=== PATIENT | male | born 1945 | race Caucasian/White ===

== ENCOUNTER → 2017-11-16 14:48 | Outpatient (CLI) | payer MEDICARE, SELFPAY ==
[2017-11-16 17:02] LABS: ALB/GLOB Ratio 1.1 RATIO (0.9-2.4); AST(SGOT) 31 U/L (15-37); Alanine Aminotransfer ALT/SGPT 43 U/L (16-61); Albumin, Serum 3.6 g/dL (3.2-5.0); Alkaline Phosphatase 83 U/L (45-117); Anion Gap 7 (5-15); BUN 14 mg/dL (7-18); BUN/Creat Ratio 12.4 RATIO (10-20); Calcium,Total 8.7 mg/dL (8.5-10.1); Chloride 102 mmol/L (98-107); Creatinine, Serum 1.13 mg/dL (0.70-1.30); EST Glomerular Filtration Rate 68 mL/min (>60); Est Glom Filt Rate - Afr Amer 82 mL/min (>60); Globulin 3.2 g/dL (2.2-4.2); Glucose 109 mg/dL (74-106); Potassium 3.7 mmol/L (3.5-5.1); Protein, Total 6.8 g/dL (6.4-8.2); Sodium Level 139 mmol/L (136-145); Thyroid Stim Hormone (TSH) 2.28 uIU/mL (0.358-3.74)
[2017-11-16 17:25] LABS: Absolute Lymphocyte Count 2.62 X10^3/ul (0.83-4.51); Absolute Neutrophil Count 3.5 X10^3/uL (2.0-7.7); Basophil# 0.04 X10^3/uL; Basophil% 0.6 % (0-1); Eosinophil# 0.26 X10^3/uL; Eosinophils% 3.7 % (0-5); Hemoglobin 14.6 g/dl (13.0-16.5); Lymphocyte # 2.62 X10^3/ul (4.0); Lymphocyte % 37.1 % (19-41); Mean Corp Hgb Conc 32.4 g/gl (32-36); Mean Corpuscular Hgb 28.9 pg (27.0-32.0); Mean Corpuscular Volume 89.1 fL (80-94); Mean Platelet Vol. 9.6 fl (6.2-12.0); Monocyte% 8.5 % (0-10); Neutrophil % 49.5 % (47-70); Platelet Count 223 K/mm3 (150-450); RBC Distribution Width CV 14.3 % (11.6-14.6); Red Blood Count 5.05 M/mm3 (4.6-6.2); White Blood Count 7.1 K/mm3 (4.4-11.0)
[2017-11-16 18:13] LABS: POSITIVE COUNT NO; POSITIVE DIFFERENTIAL NO; POSITIVE MORPHOLOGY NO
== END ==
PROVIDERS: Family Provider Family Medicine Geriatric Medicine; PCP Family Medicine Geriatric Medicine; Visit Provider Family Medicine Geriatric Medicine
DX: I10 Essential (primary) hypertension (principal); E23.6 Other disorders of pituitary gland
CPT/HCPCS: 36415; 80053; 84403; 84443; 85025

== ENCOUNTER → 2018-06-08 06:50 | Outpatient (CLI) | payer MEDICARE, SELFPAY ==
--- NOTE | 2018-06-08 06:59 | CT_ITS ---
STUDY: CT TEMPORAL BONES WITHOUT CONTRAST - ATTN: I.A.C. S REASON FOR EXAM: Male, 73 years old. Tinnitus of the right ear. RADIATION DOSAGE (If Supplied By Facility): CTDIvol = ( 82.28 ) mGy, DLP = ( 801.64 ) mGycm TECHNIQUE: The patient was scanned in a multi detector CT scanner. Transaxial imaging was performed without the administration of intravenous contrast material. Sagittal and coronal images were reconstructed. Individualized dose optimization techniques were used for this CT. COMPARISON: None. FINDINGS: RIGHT TEMPORAL BONE Normal right internal auditory canal. Normal visualized ossicles and tympanic cavity. Normal right cochlea and semicircular canals. Normal vestibular aqueduct. Normal right petrous carotid artery. Normal right jugular fossa. There are minimal scattered inflammatory changes of the right mastoid air cells consistent with mild chronic otomastoiditis. Normal right petrous apex. LEFT TEMPORAL BONE Normal left internal auditory canal. Normal visualized ossicles and tympanic cavity. Normal left cochlea and semicircular canals. Normal vestibular aqueduct. Normal left petrous carotid artery. Normal right jugular fossa. There are minimal scattered inflammatory changes of the left mastoid air cells consistent with mild chronic otomastoiditis. Normal left petrous apex. Mild mucosal thickening of the maxillary and ethmoid sinuses bilaterally. CT/Orb Sella Post Fossa Ear W/CON IMPRESSION: Normal unenhanced CT examination of the bilateral temporal bones (I.A.C.'s). Minimal mucosal thickening of the maxillary ethmoid sinuses as well as the mastoid air cells bilaterally. Electronically Signed: Ludwin Barragan MD at 12:52 EDT Tel [phone], Service support ,
[2018-06-08 07:16] LABS: CREATININE FINGERSTICK 0.9 mg/dL (0.70-1.30); EGFR FINGERSTICK > 60.0000 mL/min (>60)
== END ==
PROVIDERS: Family Provider Family Medicine Geriatric Medicine; PCP Family Medicine Geriatric Medicine; Visit Provider Otolaryngology Otolaryngology/Facial Plastic Surgery
DX: H93.19 Tinnitus, unspecified ear (principal); E55.9 Vitamin D deficiency, unspecified; F52.8 Other sexual dysfunction not due to a substance or known physiological condition; R53.83 Other fatigue; Z12.5 Encounter for screening for malignant neoplasm of prostate; Z13.89 Encounter for screening for other disorder
CPT/HCPCS: 36415; 70481; 80053; 82306; 84153; 84403; 84443; 85025; 86803; Q9967; G0103

== ENCOUNTER → 2018-06-08 14:47 | Outpatient (CLI) | payer MEDICARE, SELFPAY ==
[2018-06-08 17:02] LABS: Absolute Lymphocyte Count 2.14 X10^3/ul (0.83-4.51); Absolute Neutrophil Count 3.9 X10^3/uL (2.0-7.7); Basophil# 0.06 X10^3/uL; Basophil% 0.9 % (0-1); Eosinophil# 0.21 X10^3/uL; Hematocrit 43.2 % (40-54); Hemoglobin 14.9 g/dl (13.0-16.5); Lymphocyte # 2.14 X10^3/ul (4.0); Lymphocyte % 30.5 % (19-41); Mean Corp Hgb Conc 34.5 g/gl (32-36); Mean Corpuscular Hgb 30.5 pg (27.0-32.0); Mean Corpuscular Volume 88.5 fL (80-94); Mean Platelet Vol. 9.6 fl (6.2-12.0); Monocyte# 0.64 X10^3/uL; Monocyte% 9.1 % (0-10); Neutrophil # 3.91 X10^3/uL (2.7-7.7); Neutrophil % 55.8 % (47-70); Platelet Count 235 K/mm3 (150-450); RBC Distribution Width CV 14.1 % (11.6-14.6); RBC Distribution Width SD 45.3 fl (35.1-43.9); Red Blood Count 4.88 M/mm3 (4.6-6.2)
[2018-06-08 17:18] LABS: POSITIVE COUNT NO; POSITIVE DIFFERENTIAL NO; POSITIVE MORPHOLOGY NO
[2018-06-08 17:26] LABS: ALB/GLOB Ratio 0.9 RATIO (0.9-2.4); AST(SGOT) 22 U/L (15-37); Alanine Aminotransfer ALT/SGPT 38 U/L (16-61); Albumin, Serum 3.3 g/dL (3.2-5.0); Alkaline Phosphatase 80 U/L (45-117); Anion Gap 7 (5-15); BUN 13 mg/dL (7-18); BUN/Creat Ratio 10.8 RATIO (10-20); Calcium,Total 8.5 mg/dL (8.5-10.1); Chloride 105 mmol/L (98-107); EST Glomerular Filtration Rate 63 mL/min (>60); Est Glom Filt Rate - Afr Amer 77 mL/min (>60); Globulin 3.7 g/dL (2.2-4.2); Glucose 110 mg/dL (74-106); PSA,Total - Annual Screen 1.66 ng/mL (0.00-4.00); Potassium 3.9 mmol/L (3.5-5.1); Sodium Level 141 mmol/L (136-145); Thyroid Stim Hormone (TSH) 2.77 uIU/mL (0.358-3.74)
[2018-06-08 17:34] LABS: Vitamin D,25 Hydroxy 18.6 ng/mL (29.95-100.01)
[2018-06-10 08:32] LABS: Hep C Antibodies 0.1 s/co ratio (0.0-0.9)
== END ==
PROVIDERS: Family Provider Family Medicine Geriatric Medicine; PCP Family Medicine Geriatric Medicine; Visit Provider Family Medicine Geriatric Medicine
DX: E55.9 Vitamin D deficiency, unspecified (principal); F52.8 Other sexual dysfunction not due to a substance or known physiological condition; R53.83 Other fatigue; Z12.5 Encounter for screening for malignant neoplasm of prostate; Z13.89 Encounter for screening for other disorder
CPT/HCPCS: 36415; 80053; 82306; 84153; 84403; 84443; 85025; 86803; G0103

== ENCOUNTER → 2018-12-03 10:45 | Outpatient (CLI) | payer MEDICARE, SELFPAY | PROVIDERS: Family Provider Family Medicine Geriatric Medicine; PCP Family Medicine Geriatric Medicine; Referring Provider Family Medicine Geriatric Medicine; Visit Provider Family Medicine Geriatric Medicine | DX: R68.83 Chills (without fever) (principal) | CPT/HCPCS: 87633 ==

== ENCOUNTER → 2018-12-21 15:42 | Outpatient (CLI) | payer MEDICARE, SELFPAY ==
[2018-12-21 16:11] LABS: Absolute Neutrophil Count 7.6 X10^3/uL (2.0-7.7); Basophil# 0.03 X10^3/uL; Basophil% 0.3 % (0-1); Eosinophil# 0.11 X10^3/uL; Hematocrit 43.1 % (40-54); Hemoglobin 13.7 g/dl (13.0-16.5); Lymphocyte % 22.4 % (19-41); Mean Corp Hgb Conc 31.8 g/gl (32-36); Mean Corpuscular Hgb 29.6 pg (27.0-32.0); Mean Corpuscular Volume 93.1 fL (80-94); Mean Platelet Vol. 8.9 fl (6.2-12.0); Monocyte# 0.85 X10^3/uL; Monocyte% 7.6 % (0-10); Platelet Count 219 K/mm3 (150-450); RBC Distribution Width SD 50.3 fl (35.1-43.9); Red Blood Count 4.63 M/mm3 (4.6-6.2); White Blood Count 11.2 K/mm3 (4.4-11.0)
[2018-12-21 16:14] LABS: POSITIVE COUNT NO; POSITIVE DIFFERENTIAL NO; POSITIVE MORPHOLOGY NO
[2018-12-21 17:14] LABS: Vitamin D,25 Hydroxy 45.1 ng/mL (29.95-100.01)
[2018-12-21 17:17] LABS: ALB/GLOB Ratio 0.9 RATIO (0.9-2.4); AST(SGOT) 19 U/L (15-37); Alanine Aminotransfer ALT/SGPT 46 U/L (16-61); Albumin, Serum 3.1 g/dL (3.2-5.0); Alkaline Phosphatase 85 U/L (45-117); Anion Gap 4 (5-15); BUN 23 mg/dL (7-18); BUN/Creat Ratio 19.3 RATIO (10-20); Calcium,Total 8.4 mg/dL (8.5-10.1); Chloride 101 mmol/L (98-107); Cholesterol 138 mg/dL (200); Creatinine, Serum 1.19 mg/dL (0.70-1.30); EST Glomerular Filtration Rate 64 mL/min (>60); Est Glom Filt Rate - Afr Amer 77 mL/min (>60); Globulin 3.3 g/dL (2.2-4.2); Glucose 135 mg/dL (74-106); High Density Lipoprotein 40 mg/dL; Potassium 3.9 mmol/L (3.5-5.1); Protein, Total 6.4 g/dL (6.4-8.2); Sodium Level 135 mmol/L (136-145); Triglycerides 105 mg/dL; Very Low Density Lipoprotein 21 mg/dL (5-40)
== END ==
PROVIDERS: Family Provider Family Medicine Geriatric Medicine; PCP Family Medicine Geriatric Medicine; Visit Provider Family Medicine Geriatric Medicine
DX: R53.83 Other fatigue (principal); E78.5 Hyperlipidemia, unspecified; F52.8 Other sexual dysfunction not due to a substance or known physiological condition; E55.9 Vitamin D deficiency, unspecified
CPT/HCPCS: 36415; 80053; 80061; 82306; 84403; 84443; 85025

== ENCOUNTER → 2019-01-04 16:43 | Outpatient (CLI) | payer MEDICARE, SELFPAY ==
[2019-01-04 17:40] LABS: Absolute Lymphocyte Count 2.64 X10^3/ul (0.83-4.51); Absolute Neutrophil Count 5.8 X10^3/uL (2.0-7.7); Basophil# 0.03 X10^3/uL; Basophil% 0.3 % (0-1); Eosinophil# 0.14 X10^3/uL; Eosinophils% 1.5 % (0-5); Hematocrit 41.9 % (40-54); Hemoglobin 13.9 g/dl (13.0-16.5); Lymphocyte # 2.64 X10^3/ul (4.0); Lymphocyte % 27.9 % (19-41); Mean Corp Hgb Conc 33.2 g/gl (32-36); Mean Corpuscular Hgb 29.9 pg (27.0-32.0); Mean Corpuscular Volume 90.1 fL (80-94); Mean Platelet Vol. 8.9 fl (6.2-12.0); Monocyte# 0.76 X10^3/uL; Neutrophil # 5.76 X10^3/uL (2.7-7.7); Neutrophil % 60.8 % (47-70); Platelet Count 244 K/mm3 (150-450); RBC Distribution Width CV 14.3 % (11.6-14.6); Red Blood Count 4.65 M/mm3 (4.6-6.2); White Blood Count 9.5 K/mm3 (4.4-11.0)
--- NOTE | 2019-01-04 17:48 | RAD_ITS ---
STUDY: X-RAY CHEST REASON FOR EXAM: Male, 73 years old. SOB, FEVER, FLU X1 MONTH TECHNIQUE: PA and lateral views of the chest. COMPARISON: October 14, 2016, September 13, 2014 FINDINGS: There remains pulmonary parenchymal opacity at the right lung base inferior and lateral similar to that seen previously which is a chronic finding in this patient and perhaps chronic pleural-parenchymal scarring. There is evidence of prior traumatic injury to the right posterior lateral chest with multiple old rib fracture deformities in this vicinity. No definitive pleural effusion. The costophrenic angles on lateral view appear clear. Normal size heart. Normal mediastinum and fabi. Normal visualized pulmonary arteries. Mild tortuosity of the aorta noted. There are diffuse degenerative changes of the visualized thoracic spine. Normal visualized ribs, clavicles, and shoulders. There is no demonstrated abnormality of the visualized soft tissue structures of the upper abdomen. RAD/Chest PA and Lateral IMPRESSION: The appearance of the right inferolateral chest is unchanged. This suggests that this is chronic pleural-parenchymal scarring with old rib fracture deformities in this vicinity. No acute focal lung infiltrate. Electronically Signed: Geovanna Dunaway MD at 18:09 EDT , Service support ,
[2019-01-04 17:52] LABS: POSITIVE COUNT NO; POSITIVE DIFFERENTIAL NO; POSITIVE MORPHOLOGY NO
[2019-01-04 18:14] LABS: BUN 20 mg/dL (7-18); BUN/Creat Ratio 15.6 RATIO (10-20); Calcium,Total 8.2 mg/dL (8.5-10.1); Chloride 104 mmol/L (98-107); Creatinine, Serum 1.28 mg/dL (0.70-1.30); EST Glomerular Filtration Rate 59 mL/min (>60); Est Glom Filt Rate - Afr Amer 71 mL/min (>60); Glucose 106 mg/dL (74-106); Potassium 3.8 mmol/L (3.5-5.1); Sodium Level 137 mmol/L (136-145)
[2019-01-04 18:15] LABS: Anion Gap 5 (5-15)
[2019-01-04 18:22] LABS: BNP,B-Type NATRIURETIC PEPTIDE 13.6 pg/mL (0-100)
== END ==
PROVIDERS: Family Provider Family Medicine Geriatric Medicine; PCP Family Medicine Geriatric Medicine; Referring Provider Family Medicine Geriatric Medicine; Visit Provider Family Medicine Geriatric Medicine
DX: R06.89 Other abnormalities of breathing (principal); R68.83 Chills (without fever); R06.02 Shortness of breath; R06.09 Other forms of dyspnea
CPT/HCPCS: 36415; 71046; 80048; 83880; 85025; 87633

== ENCOUNTER → 2019-03-14 10:42 | Outpatient (CLI) | payer MEDICARE, SELFPAY ==
--- NOTE | 2019-03-14 10:51 | RAD_ITS ---
STUDY: X-RAY - LUMBAR SPINE REASON FOR EXAM: Male, 73 years old. Pain across lower back for some time and getting worse. TECHNIQUE: 3 view(s) of the lumbar spine were obtained. COMPARISON: None FINDINGS: Normal lumbar lordosis. There is no substantial scoliosis. Minimal degenerative anterolisthesis of L4 on L5. Left L4-L5 degenerative facet arthropathy. Normal vertebral bodies and endplates. Normal disc space heights. No acute fractures. Lateral marginal spurs at L2-L3 and L3-L4 disc space levels. The soft tissue structures are unremarkable. RAD/Lumbar Spine 2 or 3 Views IMPRESSION: 1. No acute fracture or acute osseous abnormality of the lumbar spine. 2. Mild degenerative anterolisthesis of L4 on L5. Electronically Signed: Esteban Cesar MD at 15:57 EDT , Service support ,
== END ==
PROVIDERS: Family Provider Family Medicine Geriatric Medicine; PCP Family Medicine Geriatric Medicine; Referring Provider Family Medicine Geriatric Medicine; Visit Provider Family Medicine Geriatric Medicine
DX: M54.5 Low back pain (principal)
CPT/HCPCS: 72100

== ENCOUNTER → 2019-06-17 09:16 | Outpatient (CLI) | payer MEDICARE, SELFPAY ==
[2019-06-17 12:58] LABS: Absolute Lymphocyte Count 2.01 X10^3/uL (0.83-4.51); Absolute Neutrophil Count 4.5 X10^3/uL (2.0-7.7); Basophil# 0.06 X10^3/uL; Basophil% 0.8 % (0-1); Eosinophil# 0.19 X10^3/uL; Eosinophils% 2.5 % (0-5); Hemoglobin 15.5 g/dL (13.0-16.5); Lymphocyte # 2.01 X10^3/ul (4.0); Lymphocyte % 26.9 % (19-41); Mean Corp Hgb Conc 31.6 g/dL (32-36); Mean Corpuscular Hgb 29.3 pg (27.0-32.0); Mean Corpuscular Volume 92.6 fL (80-94); Mean Platelet Vol. 9.6 fl (6.2-12.0); Monocyte# 0.71 X10^3/uL; Monocyte% 9.5 % (0-10); NRBC Flagged by Analyzer 0 % (0-5); Neutrophil # 4.45 X10^3/uL (2.7-7.7); Neutrophil % 59.6 % (47-70); Platelet Count 223 K/mm3 (150-450); RBC Distribution Width CV 14.1 % (11.6-14.6); RBC Distribution Width SD 48.3 fl (35.1-43.9); Red Blood Count 5.29 M/mm3 (4.6-6.2); White Blood Count 7.5 K/mm3 (4.4-11.0)
[2019-06-17 13:23] LABS: Vitamin D,25 Hydroxy 33.9 ng/mL (29.95-100.01)
[2019-06-17 14:03] LABS: ALB/GLOB Ratio 0.9 RATIO (0.9-2.4); AST(SGOT) 17 U/L (15-37); Alanine Aminotransfer ALT/SGPT 34 U/L (16-61); Albumin, Serum 3.3 g/dL (3.2-5.0); Alkaline Phosphatase 84 U/L (45-117); Anion Gap 5 (5-15); BUN 11 mg/dL (7-18); BUN/Creat Ratio 10.1 RATIO (10-20); Calcium,Total 8.7 mg/dL (8.5-10.1); Chloride 103 mmol/L (98-107); Cholesterol 122 mg/dL (200); Creatinine, Serum 1.09 mg/dL (0.70-1.30); EST Glomerular Filtration Rate 71 mL/min (>60); Est Glom Filt Rate - Afr Amer 86 mL/min (>60); Globulin 3.6 g/dL (2.2-4.2); Glucose 120 mg/dL (74-106); High Density Lipoprotein 34 mg/dL; Potassium 3.7 mmol/L (3.5-5.1); Protein, Total 6.9 g/dL (6.4-8.2); Sodium Level 138 mmol/L (136-145); Thyroid Stim Hormone (TSH) 2.38 uIU/mL (0.358-3.74); Triglycerides 151 mg/dL; Very Low Density Lipoprotein 30 mg/dL (5-40)
== END ==
PROVIDERS: Family Provider Family Medicine Geriatric Medicine; PCP Family Medicine Geriatric Medicine; Visit Provider Family Medicine Geriatric Medicine
DX: I10 Essential (primary) hypertension (principal); E55.9 Vitamin D deficiency, unspecified; E78.5 Hyperlipidemia, unspecified
CPT/HCPCS: 36415; 80053; 80061; 82306; 84443; 85025

== ENCOUNTER → 2019-10-20 14:49 | Outpatient (CLI) | payer MEDICARE, SELFPAY | PROVIDERS: PCP Family Medicine Geriatric Medicine; Referring Provider Family Medicine Geriatric Medicine; Visit Provider Family Medicine Geriatric Medicine | DX: R68.83 Chills (without fever) (principal) | CPT/HCPCS: 87633 ==

== ENCOUNTER → 2019-12-16 09:45 | Outpatient (CLI) | payer MEDICARE, SELFPAY ==
[2019-12-16 10:22] LABS: Absolute Lymphocyte Count 2.68 X10^3/uL (0.83-4.51); Basophil# 0.05 X10^3/uL; Basophil% 0.5 % (0-1); Hemoglobin 15.3 g/dL (13.0-16.5); Lymphocyte # 2.68 X10^3/ul (4.0); Lymphocyte % 27.2 % (19-41); Mean Corp Hgb Conc 31.9 g/dL (32-36); Mean Corpuscular Hgb 29.4 pg (27.0-32.0); Mean Corpuscular Volume 92.1 fL (80-94); Mean Platelet Vol. 9.1 fl (6.2-12.0); Monocyte# 0.75 X10^3/uL; Monocyte% 7.6 % (0-10); NRBC Flagged by Analyzer 0 % (0-5); Neutrophil # 5.99 X10^3/uL (2.7-7.7); Platelet Count 226 K/mm3 (150-450); RBC Distribution Width CV 15.4 % (11.6-14.6); RBC Distribution Width SD 51.9 fl (35.1-43.9); Red Blood Count 5.21 M/mm3 (4.6-6.2); White Blood Count 9.8 K/mm3 (4.4-11.0)
[2019-12-16 10:47] LABS: ALB/GLOB Ratio 0.9 RATIO (0.9-2.4); AST(SGOT) 13 U/L (15-37); Alanine Aminotransfer ALT/SGPT 32 U/L (16-61); Albumin, Serum 3.3 g/dL (3.2-5.0); Alkaline Phosphatase 90 U/L (45-117); Anion Gap 4 (5-15); BUN 17 mg/dL (7-18); BUN/Creat Ratio 15.6 RATIO (10-20); Calcium,Total 8.8 mg/dL (8.5-10.1); Chloride 102 mmol/L (98-107); Cholesterol 132 mg/dL (200); Creatinine, Serum 1.09 mg/dL (0.70-1.30); EST Glomerular Filtration Rate 71 mL/min (>60); Est Glom Filt Rate - Afr Amer 85 mL/min (>60); Globulin 3.7 g/dL (2.2-4.2); Glucose 98 mg/dL (74-106); High Density Lipoprotein 36 mg/dL; Potassium 3.8 mmol/L (3.5-5.1); Sodium Level 139 mmol/L (136-145); Thyroid Stim Hormone (TSH) 3.06 uIU/mL (0.358-3.74); Triglycerides 90 mg/dL; Very Low Density Lipoprotein 18 mg/dL (5-40)
[2019-12-16 11:09] LABS: Vitamin D,25 Hydroxy 32.5 ng/mL
== END ==
PROVIDERS: PCP Family Medicine Geriatric Medicine; Visit Provider Family Medicine Geriatric Medicine
DX: E55.9 Vitamin D deficiency, unspecified (principal); E78.5 Hyperlipidemia, unspecified; F52.8 Other sexual dysfunction not due to a substance or known physiological condition; I10 Essential (primary) hypertension
CPT/HCPCS: 36415; 80053; 80061; 82306; 84403; 84443; 85025

== ENCOUNTER → 2020-06-21 09:23 | Outpatient (CLI) | payer MEDICARE, SELFPAY ==
[2020-06-21 12:46] LABS: Absolute Lymphocyte Count 2.76 X10^3/uL (0.83-4.51); Absolute Neutrophil Count 3.8 X10^3/uL (2.0-7.7); Basophil# 0.06 X10^3/uL; Basophil% 0.8 % (0-1); Eosinophil# 0.28 X10^3/uL; Eosinophils% 3.6 % (0-5); Hematocrit 48.8 % (40-54); Hemoglobin 15.2 g/dL (13.0-16.5); Lymphocyte # 2.76 X10^3/ul (4.0); Lymphocyte % 35.2 % (19-41); Mean Corp Hgb Conc 31.1 g/dL (32-36); Mean Corpuscular Hgb 28.5 pg (27.0-32.0); Mean Corpuscular Volume 91.4 fL (80-94); Mean Platelet Vol. 9.8 fl (6.2-12.0); Monocyte# 0.92 X10^3/uL; Monocyte% 11.7 % (0-10); NRBC Flagged by Analyzer 0 % (0-5); Neutrophil # 3.75 X10^3/uL (2.7-7.7); Neutrophil % 47.8 % (47-70); Platelet Count 260 K/mm3 (150-450); Red Blood Count 5.34 M/mm3 (4.6-6.2); White Blood Count 7.8 K/mm3 (4.4-11.0)
[2020-06-21 13:04] LABS: Vitamin D,25 Hydroxy 34.1 ng/mL
[2020-06-21 13:11] LABS: ALB/GLOB Ratio 0.9 RATIO (0.9-2.4); AST(SGOT) 22 U/L (15-37); Alanine Aminotransfer ALT/SGPT 36 U/L (16-61); Albumin, Serum 3.3 g/dL (3.2-5.0); Alkaline Phosphatase 78 U/L (45-117); Anion Gap 5 (5-15); BUN 11 mg/dL (7-18); Calcium,Total 8.8 mg/dL (8.5-10.1); Chloride 104 mmol/L (98-107); Cholesterol 146 mg/dL (200); EST Glomerular Filtration Rate 70 mL/min (>60); Est Glom Filt Rate - Afr Amer 84 mL/min (>60); Globulin 3.7 g/dL (2.2-4.2); Glucose 130 mg/dL (74-106); High Density Lipoprotein 29 mg/dL; Potassium 4.4 mmol/L (3.5-5.1); Sodium Level 138 mmol/L (136-145); Thyroid Stim Hormone (TSH) 4.62 uIU/mL (0.358-3.74); Triglycerides 130 mg/dL; Very Low Density Lipoprotein 26 mg/dL (5-40)
[2020-06-26 11:25] LABS: Hemoglobin A1c 6.4 % (3.8-5.6)
== END ==
PROVIDERS: PCP Family Medicine Geriatric Medicine; Visit Provider Family Medicine Geriatric Medicine
DX: R53.83 Other fatigue (principal); E55.9 Vitamin D deficiency, unspecified; F52.8 Other sexual dysfunction not due to a substance or known physiological condition; E11.9 Type 2 diabetes mellitus without complications; E78.5 Hyperlipidemia, unspecified
CPT/HCPCS: 36415; 80053; 80061; 82306; 83036; 84403; 84443; 85025

== ENCOUNTER → 2020-07-04 10:43 | Outpatient (CLI) | payer MEDICARE, SELFPAY ==
[2020-07-04 12:19] LABS: Absolute Lymphocyte Count 1.94 X10^3/uL (0.83-4.51); Absolute Neutrophil Count 3.2 X10^3/uL (2.0-7.7); Basophil# 0.05 X10^3/uL; Basophil% 0.8 % (0-1); Eosinophil# 0.21 X10^3/uL; Eosinophils% 3.4 % (0-5); Hematocrit 45.7 % (40-54); Hemoglobin 14.6 g/dL (13.0-16.5); Lymphocyte # 1.94 X10^3/ul (4.0); Lymphocyte % 31.3 % (19-41); Mean Corp Hgb Conc 31.9 g/dL (32-36); Mean Corpuscular Volume 90.9 fL (80-94); Mean Platelet Vol. 9.3 fl (6.2-12.0); Monocyte# 0.72 X10^3/uL; Monocyte% 11.6 % (0-10); NRBC Flagged by Analyzer 0 % (0-5); Neutrophil # 3.24 X10^3/uL (2.7-7.7); Neutrophil % 52.4 % (47-70); Platelet Count 252 K/mm3 (150-450); RBC Distribution Width CV 14.2 % (11.6-14.6); RBC Distribution Width SD 47.3 fl (35.1-43.9); Red Blood Count 5.03 M/mm3 (4.6-6.2); White Blood Count 6.2 K/mm3 (4.4-11.0)
[2020-07-04 12:36] LABS: Anion Gap 3 (5-15); BUN 12 mg/dL (7-18); BUN/Creat Ratio 11.3 RATIO (10-20); Chloride 106 mmol/L (98-107); Creatinine, Serum 1.06 mg/dL (0.70-1.30); EST Glomerular Filtration Rate 73 mL/min (>60); Est Glom Filt Rate - Afr Amer 88 mL/min (>60); Glucose 111 mg/dL (74-106); Potassium 3.9 mmol/L (3.5-5.1); Sodium Level 138 mmol/L (136-145)
== END ==
PROVIDERS: PCP Family Medicine Geriatric Medicine; Visit Provider Family Medicine Geriatric Medicine
DX: R07.9 Chest pain, unspecified (principal); R60.9 Edema, unspecified
CPT/HCPCS: 36415; 80048; 83880; 85025

== ENCOUNTER → 2020-07-24 11:32 | Outpatient (CLI) | payer MEDICARE, SELFPAY ==
[2020-07-24 13:10] LABS: PSA,Total - Annual Screen 0.88 ng/mL (0.00-4.00)
== END ==
PROVIDERS: PCP Family Medicine Geriatric Medicine; Visit Provider Family Medicine Geriatric Medicine
DX: Z12.5 Encounter for screening for malignant neoplasm of prostate (principal)
CPT/HCPCS: 36415; 84153; G0103

== ENCOUNTER → 2020-12-20 11:42 | Outpatient (CLI) | payer MEDICARE, SELFPAY ==
[2020-12-20 12:20] LABS: Absolute Neutrophil Count 3.5 X10^3/uL (2.0-7.7); Basophil# 0.09 X10^3/uL; Basophil% 1.2 % (0-1); Eosinophil# 0.31 X10^3/uL; Hematocrit 45.7 % (40-54); Lymphocyte % 38.7 % (19-41); Mean Corp Hgb Conc 32.8 g/dL (32-36); Mean Corpuscular Hgb 29.7 pg (27.0-32.0); Mean Corpuscular Volume 90.5 fL (80-94); Mean Platelet Vol. 9.5 fl (6.2-12.0); Monocyte# 0.83 X10^3/uL; Monocyte% 10.7 % (0-10); NRBC Flagged by Analyzer 0 % (0-5); Neutrophil # 3.46 X10^3/uL (2.7-7.7); Neutrophil % 44.6 % (47-70); Platelet Count 248 K/mm3 (150-450); RBC Distribution Width CV 14.6 % (11.6-14.6); RBC Distribution Width SD 47.8 fl (35.1-43.9); Red Blood Count 5.05 M/mm3 (4.6-6.2); White Blood Count 7.8 K/mm3 (4.4-11.0)
[2020-12-20 12:55] LABS: AST(SGOT) 26 U/L (15-37); Alanine Aminotransfer ALT/SGPT 53 U/L (16-61); Albumin, Serum 3.4 g/dL (3.2-5.0); Alkaline Phosphatase 82 U/L (45-117); Anion Gap 5 (5-15); BUN 13 mg/dL (7-18); BUN/Creat Ratio 12.5 RATIO (10-20); Calcium,Total 8.5 mg/dL (8.5-10.1); Chloride 101 mmol/L (98-107); Cholesterol 137 mg/dL (200); Creatinine, Serum 1.04 mg/dL (0.70-1.30); EST Glomerular Filtration Rate 74 mL/min (>60); Est Glom Filt Rate - Afr Amer 90 mL/min (>60); Globulin 3.5 g/dL (2.2-4.2); Glucose 129 mg/dL (74-106); High Density Lipoprotein 30 mg/dL; Potassium 3.5 mmol/L (3.5-5.1); Protein, Total 6.9 g/dL (6.4-8.2); Sodium Level 136 mmol/L (136-145); Thyroid Stim Hormone (TSH) 3.48 uIU/mL (0.358-3.74); Triglycerides 136 mg/dL; Very Low Density Lipoprotein 27 mg/dL (5-40)
[2020-12-20 16:19] LABS: Vitamin D,25 Hydroxy 26.7 ng/mL
== END ==
PROVIDERS: PCP Family Medicine Geriatric Medicine; Visit Provider Family Medicine Geriatric Medicine
DX: E55.9 Vitamin D deficiency, unspecified (principal); E78.5 Hyperlipidemia, unspecified; R53.83 Other fatigue; F52.8 Other sexual dysfunction not due to a substance or known physiological condition
CPT/HCPCS: 36415; 80053; 80061; 82306; 84403; 84443; 85025

== ENCOUNTER 2021-03-14 12:11 | Emergency (ER) | payer MEDICARE, SELFPAY ==
[2021-03-14 12:12] VITALS: BP 158/87; PULSE 80; RESP 16; TEMP 36.3; O2SAT 94; BMI 37.3
--- NOTE | 2021-03-14 12:19 | EX.ED.DYSGE1 ---
HPI History of Present Illness Chief Complaint: Itching Informant: patient Onset/Context/Timing Onset: Yesterday Context: Gradual Onset Timing: Continuous Current Severity: Moderate Maximum Severity: Moderate Narrative Narrative: Patient is a 75-year-old male medical history significant for hypertension who presents to the emergency department with rash. Patient states he was outdoors mowing yesterday. He also got a shingles shot. States today, he developed some hives on his arms and chest. He also noted some in his groin. He cannot recall any new exposures. He denies any new lotions, soaps, shampoos. He denies any fever or chills. Has not found anything has improved the symptoms. Prior similar symptoms: No Recent Illness/Hospitalization: No PFSH PFSH Medical History (Updated 03/14/21 @ 12:21 by Holly Claudio) High cholesterol Hypertension Home Medications hydroxyzine pamoate [Vistaril] 50 mg PO TID PRN #30 cap 03/14/21 [Rx Last Taken Unknown] losartan 20 mg OTHER DAILY 03/14/21 [History Last Taken Unknown] prednisone 60 mg PO DAILY #15 tablet 03/14/21 [Rx Last Taken Unknown] Allergy/AdvReac Type Severity Reaction Status Date / Time No Known Allergies Allergy Verified 03/14/21 12:15 ROS ROS ED Constitutional Constitutional ED: Denies chills or fever(s) Eyes Eyes: Denies blurry vision or change in vision ENT ENT ED: Denies ear pain or sore throat Cardiovascular Cardiovascular: Denies chest pain or palpitations Respiratory/Chest Respiratory/Chest: Denies cough, dyspnea or dyspnea on exertion Gastrointestinal Gastrointestinal: Denies abdominal pain, nausea or vomiting Genitourinary Genitourinary ED: Denies dysuria or urinary frequency Musculoskeletal Musculoskeletal: Denies arthralgias or myalgias Integumentary Reports rash Neurologic Neurologic: Denies headache(s) or paresthesias Psychiatric Psychiatric: Denies anxiety or depression Endocrine Endocrinology: Denies polydipsia or polyuria Allergic/Immunologic Allergic/Immunologic ED: Denies urticaria EXAM Physical Exam Const Vital Signs: 03/14/21 12:12 Temperature 97.3 F L Temperature Source Temporal Pulse Rate 80 Respiratory Rate 16 Blood Pressure 158/87 H Blood Pressure Mean 110 Pulse Ox 94 Oxygen Delivery Method Room Air Positive well nourished and well developed General Appearance ED: well developed HEENT Reports normocephalic, head/scalp atraumatic and moist mucous membranes Eyes PERRL and EOMs intact bilaterally Neck no lymphadenopathy and supple General: Negative for tenderness Chest Wall inspection of chest normal Resp normal respiratory effort and clear to auscultation bilaterally Cardio regular rate, regular rhythm and no murmurs GI normal to inspection, nondistended, normoactive bowel sounds Palpation: Negative for tender, guarding or rebound tenderness present Back/Spine no CVA tenderness Cervical Spine: Negative for cervical spine tenderness Thoracic Spine / Upper Back: Negative for thoracic spinal tenderness Extremity normal to inspection General Extremety ED: Negative for tenderness Neuro oriented x3 and CN's II-XII intact bilaterally Neuro Narrative: No focal deficits appreciated. Sensorium / Orientation: alert Psych mental status grossly normal Skin no wounds and skin turgor normal Skin Narrative: Patient has diffuse urticarial rash. Involves the chest and arms. It is also in the inguinal folds. There is no cellulitis. There is no streaking. MDM MDM MDM Narrative Medical decision making narrative: Patient presents with a urticarial rash. I am not sure if this is contact or reaction to his shingles vaccination. He is very well-appearing. He has no history of anaphylaxis. Has no symptoms of anaphylaxis. Patient is not a diabetic. I will treat him with prednisone and Vistaril. Patient will be discharged home. Impression 1. Urticaria Discharge Plan Triage Chief Complaint: Itching ED Provider: Michele Woods Dx/Rx/DC Orders Instructions: ED Contact Dermatitis Prescriptions: New prednisone 20 MG tablet 60 mg PO DAILY Qty: 15 RF: 0 hydroxyzine pamoate [Vistaril] 50 mg capsule 50 mg PO TID PRN (Reason: itching) Qty: 30 RF: 0 No Action losartan 20 mg 20 mg OTHER DAILY RF: 0 Primary Care Provider: Brad Moody Chi Referrals: Brad Moody Chi, MD [Primary Care Provider] -
[2021-03-14] MEDS: hydrOXYzine PAM 25 MG Capsule 50 MG PO (12:37)
[2021-03-14] MEDS: predniSONE 20 MG Tablet 60 MG PO (12:54)
== END 2021-03-14 12:55 | disposition home or self-care (01) ==
LOC: ED 12:40
PROVIDERS: Emergency Provider Emergency Medicine; PCP Family Medicine Geriatric Medicine
DX: L50.9 Urticaria, unspecified (principal); E78.00 Pure hypercholesterolemia, unspecified; I10 Essential (primary) hypertension; Z79.52 Long term (current) use of systemic steroids; Z79.899 Other long term (current) drug therapy
CPT/HCPCS: 99283

== ENCOUNTER → 2021-03-20 15:00 | Outpatient (CLI) | payer MEDICARE, SELFPAY ==
[2021-03-14 12:12] VITALS: BMI 37.3
[2021-03-28 20:08] LABS: Alternaria alternata 0.29 kU/L (Class 0/I); Aspergillus fumigatus 0.56 kU/L (Class II); Bahia Grass 0.13 kU/L (Class 0/I); Beef 0.16 kU/L (Class 0/I); Bermuda Grass 0.11 kU/L (Class 0/I); Bluegrass, Kentucky 0.11 kU/L (Class 0/I); Cat Hair/Dander, Standard <0.10 kU/L (Class 0); Cedar, Mountain 0.23 kU/L (Class 0/I); Cladosporium herbarum 0.26 kU/L (Class 0/I); Cockroach, American 0.11 kU/L (Class 0/I); Corn <0.10 kU/L (Class 0); D farinae Mite 0.23 kU/L (Class 0/I); D pteronyssinus 0.52 kU/L (Class I); Dog Epithelia 0.13 kU/L (Class 0/I); Egg, Whole 0.11 kU/L (Class 0/I); Elm, American White <0.10 kU/L (Class 0); Hazelnut Tree <0.10 kU/L (Class 0); Hickory, White <0.10 kU/L (Class 0); Johnson Grass 0.18 kU/L (Class 0/I); Maple/Box Elder <0.10 kU/L (Class 0); Milk (Cow) 0.24 kU/L (Class 0/I); Mucor racemosus 0.32 kU/L (Class I); Mulberry, White <0.10 kU/L (Class 0); Nettle 0.15 kU/L (Class 0/I); Oak, White 0.13 kU/L (Class 0/I); Peanut <0.10 kU/L (Class 0); Penicillium chrysogen 0.38 kU/L (Class I); Plantain, English 0.17 kU/L (Class 0/I); Pork <0.10 kU/L (Class 0); Ragweed, Short/Common <0.10 kU/L (Class 0); Sheep Sorrel(Dock) 0.12 kU/L (Class 0/I); Soybean 0.11 kU/L (Class 0/I); Stemphylium herbarum 0.12 kU/L (Class 0/I); Sweet Gum <0.10 kU/L (Class 0); Sycamore, American <0.10 kU/L (Class 0); Wheat <0.10 kU/L (Class 0)
[2021-03-29 09:06] LABS: Chocolate <0.10 kU/L (Class 0)
== END ==
PROVIDERS: PCP Family Medicine Geriatric Medicine; Visit Provider Family Medicine Geriatric Medicine
DX: L50.0 Allergic urticaria (principal)
CPT/HCPCS: 36415; 82785; 86003; 86005

== ENCOUNTER → 2021-06-27 10:19 | Outpatient (CLI) | payer MEDICARE, SELFPAY ==
[2021-06-27 11:17] LABS: Absolute Lymphocyte Count 2.49 X10^3/uL (0.83-4.51); Absolute Neutrophil Count 3.6 X10^3/uL (2.0-7.7); Basophil# 0.08 X10^3/uL; Basophil% 1.1 % (0-1); Eosinophil# 0.33 X10^3/uL; Eosinophils% 4.5 % (0-5); Hematocrit 48.1 % (40-54); Hemoglobin 15.9 g/dL (13.0-16.5); Lymphocyte # 2.49 X10^3/ul (0.83-4.51); Lymphocyte % 34.2 % (19-41); Mean Corp Hgb Conc 33.1 g/dL (32-36); Mean Corpuscular Hgb 29.7 pg (27.0-32.0); Mean Corpuscular Volume 89.7 fL (80-94); Mean Platelet Vol. 9.2 fl (6.2-12.0); Monocyte# 0.69 X10^3/uL; Monocyte% 9.5 % (0-10); NRBC Flagged by Analyzer 0 % (0-5); Neutrophil # 3.63 X10^3/uL (2.7-7.7); Neutrophil % 49.9 % (47-70); Platelet Count 245 K/mm3 (150-450); RBC Distribution Width CV 13.7 % (11.6-14.6); Red Blood Count 5.36 M/mm3 (4.6-6.2); White Blood Count 7.3 K/mm3 (4.4-11.0)
[2021-06-27 11:46] LABS: Vitamin D,25 Hydroxy 25.3 ng/mL
[2021-06-27 11:53] LABS: ALB/GLOB Ratio 0.8 RATIO (0.9-2.4); AST(SGOT) 17 U/L (15-37); Alanine Aminotransfer ALT/SGPT 29 U/L (16-61); Albumin, Serum 3.4 g/dL (3.2-5.0); Alkaline Phosphatase 92 U/L (45-117); Anion Gap 6 (5-15); BUN 9 mg/dL (7-18); BUN/Creat Ratio 8.6 RATIO (10-20); Calcium,Total 8.8 mg/dL (8.5-10.1); Chloride 99 mmol/L (98-107); Cholesterol 142 mg/dL (200); Creatinine, Serum 1.05 mg/dL (0.70-1.30); EST Glomerular Filtration Rate 73 mL/min (>60); Est Glom Filt Rate - Afr Amer 89 mL/min (>60); Globulin 4.1 g/dL (2.2-4.2); Glucose 107 mg/dL (74-106); High Density Lipoprotein 29 mg/dL; Potassium 3.7 mmol/L (3.5-5.1); Protein, Total 7.5 g/dL (6.4-8.2); Sodium Level 135 mmol/L (136-145); Thyroid Stim Hormone (TSH) 2.57 uIU/mL (0.358-3.74); Triglycerides 178 mg/dL; Very Low Density Lipoprotein 36 mg/dL (5-40)
== END ==
PROVIDERS: PCP Family Medicine Geriatric Medicine; Referring Provider Family Medicine Geriatric Medicine; Visit Provider Family Medicine Geriatric Medicine
DX: E78.5 Hyperlipidemia, unspecified (principal); E55.9 Vitamin D deficiency, unspecified; F52.8 Other sexual dysfunction not due to a substance or known physiological condition; I10 Essential (primary) hypertension
CPT/HCPCS: 36415; 80053; 80061; 82306; 84403; 84443; 85025

== ENCOUNTER → 2021-08-09 15:25 | Outpatient (CLI) | payer MEDICARE, SELFPAY ==
--- NOTE | 2021-08-09 15:55 | CT_ITS ---
STUDY: CT BRAIN WITHOUT CONTRAST REASON FOR EXAM: Male, 76 years old. Cerebral infarction. RADIATION DOSAGE (If Supplied By Facility): CTDIvol = ( 44.99 ) mGy, DLP = ( 829.85 ) mGycm TECHNIQUE: Transaxial CT imaging of the brain was performed without administration of intravenous contrast material. Individualized dose optimization techniques were used for this CT. COMPARISON: 03/03/2012. FINDINGS: The present study is essentially nondiagnostic due to artifact from a large metal plate in the central and left frontal region. Only the lower and posterior aspects of the brain are partially seen. The occipital horns of the lateral ventricles, third and fourth ventricles are age-appropriate in size. There is no marked atrophy. Normal white matter tracts of the visualized cerebral hemispheres. Normal-appearing thalami. The basal ganglia are obscured by scatter artifact. Normal brainstem. Normal cerebellum. There is no intracranial hemorrhage. There are no findings of an acute ischemic infarction. Normal visualized paranasal sinuses. CT/Brain/Head without Contrast IMPRESSION: 1. Marked limited study due to a large metallic plate in the central left frontal region. 2. No obvious acute abnormality in the visualized portions of the brain. There is no major interval change from 03/05/2012. Electronically Signed: Ben Silva DO at 16:15 EST Tel [phone], Service support ,
== END ==
PROVIDERS: PCP Family Medicine Geriatric Medicine; Referring Provider Family Medicine Geriatric Medicine; Visit Provider Family Medicine Geriatric Medicine
DX: I63.9 Cerebral infarction, unspecified (principal)
CPT/HCPCS: 70450

== ENCOUNTER → 2021-08-28 13:13 | Outpatient (CLI) | payer MEDICARE, SELFPAY ==
--- NOTE | 2021-08-28 14:56 | NEURO ---
NCS and/or EMG Patient Report Ordering Doctor: Brad Moody Chi DATE OF SERVICE: 08/28/21 Bower presents for electrodiagnostic testing of the right upper limb. He reports pain in the right scapular region and numbness in the second digit of the right hand. Electrodiagnostic findings: Right median motor nerve demonstrates normal distal latency, amplitude and conduction velocity. Normal right ulnar motor response. Normal right median and ulnar F-wave. Prolonged right median sensory latency at the wrist. Normal right ulnar radial sensory responses. On needle EMG, all all muscles tested in the right upper limb as well as the right infraspinatus and supraspinatus and right cervical paraspinal showed no evidence of denervation with normal motor unit action potentials. Electrodiagnostic impression: This is an abnormal study in the right upper limb. 1. Electrodiagnostic findings demonstrate right-sided median mononeuropathy. This is consistent with a mild right carpal tunnel syndrome.
== END ==
PROVIDERS: PCP Family Medicine Geriatric Medicine; Referring Provider Family Medicine Geriatric Medicine; Visit Provider Family Medicine Geriatric Medicine
DX: G56.01 Carpal tunnel syndrome, right upper limb (principal); G56.11 Other lesions of median nerve, right upper limb
CPT/HCPCS: 95886; 95909

== ENCOUNTER → 2021-08-30 13:11 | Outpatient (CLI) | payer MEDICARE, SELFPAY ==
[2021-08-30 16:22] LABS: PSA,Total- Diagnostic 0.62 ng/mL (0.0-4.0)
== END ==
PROVIDERS: PCP Family Medicine Geriatric Medicine; Referring Provider Urology; Visit Provider Urology
DX: N40.1 Benign prostatic hyperplasia with lower urinary tract symptoms (principal); N13.8 Other obstructive and reflux uropathy
CPT/HCPCS: 36415; 84153

== ENCOUNTER 2021-12-14 19:13 | Emergency (ER) | payer MEDICARE, SELFPAY ==
[2021-12-14 19:15] VITALS: BP 175/68; PULSE 76; RESP 17; TEMP 36.1; O2SAT 95; BMI 37.8
[2021-12-14 19:39] VITALS: BP 169/88; PULSE 73; RESP 14; O2SAT 97
--- NOTE | 2021-12-14 20:02 | RAD_ITS ---
INDICATION: chest pain EXAMINATION/TECHNIQUE: X-RAY - XR Chest 1 View COMPARISON: 01/04/2019. FINDINGS: The lungs are clear. Right basilar atelectasis. The heart is enlarged. No pleural effusion or pneumothorax. No acute osseous abnormalities. RAD/Chest 1 View (Portable) IMPRESSION: No acute radiographic abnormalities. Electronically Signed: Garland Ellison MD at 21:21 EDT ,
--- NOTE | 2021-12-14 20:02 | EKG12_ITS ---
Test Reason : WEAKNESS Blood Pressure : / mmHG Vent. Rate : 080 BPM Atrial Rate : 080 BPM P-R Int : 168 ms QRS Dur : 078 ms QT Int : 428 ms P-R-T Axes : 066 038 085 degrees QTc Int : 493 ms Normal sinus rhythm Low voltage QRS Prolonged QT Abnormal ECG Confirmed by OSKAR FONTANEZ, SE ([id number]), editorial specialist JOSÉ MIGUEL RICKS ([id number]) on 12/16/2021 11:39:40 A M Referred By: ISAMAR Confirmed By:MERYL SCHMITT MD
--- NOTE | 2021-12-14 20:04 | EDS_ITS ---
HPI History of Present Illness Chief Complaint: Weakness Narrative Narrative: 76-year-old male presenting with lightheadedness which started this morning. This morning he told his that he just was not feeling right. He got up and felt lightheaded and was able to ambulate down the hallway but states he is bouncing off the [place] in his narrow hallway. He is having difficulty walking straight. He does not have vertiginous type dizziness. Patient states he took his blood pressure medicines and vomited this up. He states he tried the water and orange juice and he has vomited these up. He has not been able to hold down anything today. He denies headache, visual disturbance, facial droop, slurred speech, confusion. He has not had chest pain, palpitations, shortness of breath. He has not had a fever, chills, cough. He denies abdominal pain. [facility] Medical History High cholesterol Hypertension Home Medications hydroxyzine pamoate [Vistaril] 50 mg PO TID PRN #30 cap 03/14/21 [Rx Last Taken Unknown] losartan 20 mg OTHER DAILY 03/14/21 [History Last Taken Unknown] prednisone 60 mg PO DAILY #15 tablet 03/14/21 [Rx Last Taken Unknown] promethazine 12.5 mg PO TID PRN #14 tab 12/14/21 [Rx Last Taken Unknown] Allergy/AdvReac Type Severity Reaction Status Date / Time No Known Allergies Allergy Verified 12/14/21 19:13 Social History Smoking Status: Current every day smoker tobacco type: cigars ROS ROS ED Constitutional Constitutional ED: Denies chills or fever(s) Eyes Eyes: Denies blurry vision or change in vision ENT ENT ED: Denies rhinorrhea or sore throat Cardiovascular Cardiovascular: Denies chest pain or palpitations Respiratory/Chest Respiratory/Chest: Denies cough or dyspnea Gastrointestinal Gastrointestinal: Reports nausea and vomiting; Denies abdominal pain, co nstipation or diarrhea Genitourinary Genitourinary ED: Denies dysuria Musculoskeletal Musculoskeletal: Denies myalgias Integumentary Denies rash Neurologic Neurologic: Denies headache(s), paresthesias or weakness Psychiatric Psychiatric: Denies anxiety or depression EXAM Physical Exam Const Vital Signs: 12/14/21 19:15 12/14/21 19:39 12/14/21 20:04 Temperature 97.0 F L Temperature Source Temporal Pulse Rate 76 73 Pulse Rate [Lying] Pulse Rate [Sitting (for 1 minute prior to obtaining)] Pulse Rate [Standing (for 1 minute prior to obtaining)] Respiratory Rate 17 14 Respiratory Effort Normal Respiratory Pattern Normal Blood Pressure 175/68 H 169/88 H Blood Pressure [Lying] Blood Pressure [Sitting (for 1 minute prior to obtaining)] Blood Pressure [Standing (for 1 minute prior to obtaining)] Blood Pressure Mean 103 115 Blood Pressure Mean [Lying] Blood Pressure Mean [Sitting (for 1 minute prior to obtaining)] Blood Pressure Mean [Standing (for 1 minute prior to obtaining)] Pulse Ox 95 97 Oxygen Delivery Method Room Air Room Air Room Air 12/14/21 20:33 12/14/21 20:52 Temperature Temperature Source Pulse Rate 68 Pulse Rate [Lying] 71 Pulse Rate [Sitting (for 1 minute prior to obtaining)] 74 Pulse Rate [Standing (for 1 minute prior to obtaining)] 71 Respiratory Rate 16 Respiratory Effort Respiratory Pattern Blood Pressure 166/90 H Blood Pressure [Lying] 157/88 H Blood Pressure [Sitting (for 1 minute prior to obtaining)] 172/92 H Blood Pressure [Standing (for 1 minute prior to obtaining)] 157/87 H Blood Pressure Mean 115 Blood Pressure Mean [Lying] 111 Blood Pressure Mean [Sitting (for 1 minute prior to obtaining)] 118 Blood Pressure Mean [Standing (for 1 minute prior to obtaining)] 110 Pulse Ox 98 Oxygen Delivery Method Room Air Positive well nourished and obese General Appearance ED: NAD; Negative for pallor Nutritional Appearance: obese HEENT Reports moist mucous membranes Negative for trauma Eyes PERRL and EOMs intact bilaterally General Eye ED: Negative for pale conjunctiva or scleral icterus Neck no lymphadenopathy and supple Chest Wall inspection of chest normal and palpation of chest normal Resp normal respiratory effort and clear to auscultation bilaterally Cardio regular rate and regular rhythm Extremity normal to inspection Neuro oriented x3, CN's II-XII intact bilaterally and no sensory deficits noted Sensorium / Orientation: alert Motor Exam: strength 5/5 throughout Psych mental status grossly normal Skin no rashes or lesions noted General Skin Exam: Negative for jaundice or pallor MDM MDM MDM Narrative Medical decision making narrative: Patient presenting with nausea/vomiting for most of the day. Is not able to holding down. He denies pain anywhere. He does admit to having some lightheadedness when standing. He was unable to take his blood pressure medication this morning because of vomiting. His blood pressure slightly elevated here on arrival. He has no headache, visual complaints. No chest pain or shortness of breath. No abdominal pain. EKG was obtained because the patient is feeling lightheaded with standing. His EKG shows a normal sinus rhythm with a ventricular rate of 80 bpm on my interpretation QTC is prolonged at 483. No ST elevations or depressions. Will obtain orthostatic vital signs. CBC is unremarkable. BMP is also within normal limits. High-sensitivity troponin is 4. Chest x-ray my interpretation shows no acute cardiopulmonary process and radiologist agree. CT of the brain is performed does not show any acute abnormality. Patient was given Phenergan and on reevaluation he feels improved. His orthostatic vitals are normal. He no longer has dizziness or vomiting. Since patient is feeling improved his work-up is ultimately negative illicitly discharged. Patient will be discharged with Phenergan. This can return precautions. Impression: 1. Nausea/vomiting 2. Lightheadedness Lab Data Attestation: I reviewed the patient's lab results. Labs: Laboratory Results - last 24 hr 12/14/21 12/14/21 19:40 19:40 WBC 7.8 RBC 5.36 Hgb 15.8 Hct 47.0 MCV 87.7 MCH 29.5 MCHC 33.6 RDW Std Deviation 43.8 RDW Coeff of Mayra 13.7 Plt Count 218 MPV 9.5 Immature Gran % (Auto) 0.600 Neut % (Auto) 71.1 H Lymph % (Auto) 19.2 [place] % (Auto) 7.8 Eos % (Auto) 0.8 Baso % (Auto) 0.5 Absolute Neuts (auto) 5.5 Absolute Lymphs (auto) 1.50 Nucleated RBC % 0 Sodium 136 Potassium 3.6 Chloride 102 Carbon Dioxide 30.0 Anion Gap 4 L BUN 12 Creatinine 0.94 Estim Creat Clear Calc 62.22 Est GFR (MDRD) Af Amer 101 Est GFR (MDRD) Non-Af 83 BUN/Creatinine Ratio 12.7 Glucose 133 H Calcium 9.0 Troponin I High Sens 4 Radiography Diagnostic Testing: Clinical Impression(s) from Imaging Studies Chest X-Ray 12/14/21 20:02 IMPRESSION: No acute radiographic abnormalities. Electronically Signed: Garland Ellison MD at 21:21 EDT , Brain CT 12/14/21 20:25 IMPRESSION: Markedly limited study due to streak artifact from large metallic plate in the left frontal region. Despite limitations: No acute abnormalities. Electronically Signed: Garland Ellison MD at 20:37 EDT , Discharge Plan Triage Chief Complaint: Weakness ED Provider: Ruslan Win Dx/Rx/DC Orders Instructions: ED Vomiting (Adult), ED Weakness (Uncertain Cause) Prescriptions: New promethazine 12.5 mg tablet 12.5 mg PO TID PRN (Reason: nausea and vomiting) Qty: 14 RF: 0 No Action losartan 20 mg 20 mg OTHER DAILY RF: 0 prednisone 20 MG tablet 60 mg PO DAILY Qty: 15 RF: 0 hydroxyzine pamoate [Vistaril] 50 mg capsule 50 mg PO TID PRN (Reason: itching) Qty: 30 RF: 0 Primary Care Provider: Brad Moody Chi Referrals: Brad Moody Chi, MD [Primary Care Provider] - Disposition Disposition: Home, Self Care
[2021-12-14 20:11] LABS: Absolute Neutrophil Count 5.5 X10^3/uL (2.0-7.7); Basophil# 0.04 X10^3/uL; Basophil% 0.5 % (0-1); Eosinophil# 0.06 X10^3/uL; Eosinophils% 0.8 % (0-5); Hemoglobin 15.8 g/dL (13.0-16.5); Lymphocyte % 19.2 % (19-41); Mean Corp Hgb Conc 33.6 g/dL (32-36); Mean Corpuscular Hgb 29.5 pg (27.0-32.0); Mean Corpuscular Volume 87.7 fL (80-94); Mean Platelet Vol. 9.5 fl (6.2-12.0); Monocyte# 0.61 X10^3/uL; Monocyte% 7.8 % (0-10); NRBC Flagged by Analyzer 0 % (0-5); Neutrophil # 5.54 X10^3/uL (2.7-7.7); Neutrophil % 71.1 % (47-70); Platelet Count 218 K/mm3 (150-450); RBC Distribution Width CV 13.7 % (11.6-14.6); RBC Distribution Width SD 43.8 fl (35.1-43.9); Red Blood Count 5.36 M/mm3 (4.6-6.2); White Blood Count 7.8 K/mm3 (4.4-11.0)
--- NOTE | 2021-12-14 20:11 | NURSING ---
NO OLD EKGS
--- NOTE | 2021-12-14 20:25 | CT_ITS ---
EXAMINATION : Head CT w/out contrast HISTORY : lightheadedness COMPARISON : 08/09/2021. TECHNIQUE : Multiple contiguous axial images were obtained from the skull base to the vertex without intravenous contrast. A radiation dose optimization technique was used for this scan. FINDINGS : The ventricles and sulci are normal in size. There is no evidence for acute intracranial hemorrhage, mass effect, or midline shift. There is no extra-axial fluid collection. There is normal mcknight-white differentiation, without CT evidence of acute ischemia or infarct. Large metallic plate in the left frontal calvarium. The orbits are unremarkable. The paranasal sinuses are clear. The mastoid air cells are well-aerated. The soft tissues are unremarkable. CT/Brain/Head without Contrast IMPRESSION: Markedly limited study due to streak artifact from large metallic plate in the left frontal region. Despite limitations: No acute abnormalities. Electronically Signed: Garland Ellison MD at 20:37 EDT ,
[2021-12-14] MEDS: proMETHazine 25 MG/ML Syringe 12.5 MG IM (20:32)
[2021-12-14 20:33] VITALS: BP 166/90; PULSE 68; RESP 16; O2SAT 98
[2021-12-14 20:33] LABS: Anion Gap 4 (5-15); BUN 12 mg/dL (7-18); BUN/Creat Ratio 12.7 RATIO (10-20); Chloride 102 mmol/L (98-107); Creatinine, Serum 0.94 mg/dL (0.70-1.30); EST Glomerular Filtration Rate 83 mL/min (>60); Est Glom Filt Rate - Afr Amer 101 mL/min (>60); Estimated Creatinine Clearance 62.22 ml/min; Glucose 133 mg/dL (74-106); Potassium 3.6 mmol/L (3.5-5.1); Sodium Level 136 mmol/L (136-145); Troponin-I HS 4 pg/mL (3.0-78.0)
[2021-12-14 20:52] VITALS: BP 157/87; BP 157/88; BP 172/92; PULSE 71; PULSE 74
[2021-12-14 21:42] VITALS: BP 175/90; PULSE 67; RESP 16; O2SAT 96
== END 2021-12-14 21:43 | disposition home or self-care (01) ==
PROVIDERS: Emergency Provider Student in an Organized Health Care Education/Training Program; PCP Family Medicine Geriatric Medicine; Visit Provider Student in an Organized Health Care Education/Training Program
DX: R11.2 Nausea with vomiting, unspecified (principal); R42 Dizziness and giddiness; F17.290 Nicotine dependence, other tobacco product, uncomplicated; E66.9 Obesity, unspecified
CPT/HCPCS: 70450; 71045; 80048; 84484; 85025; 93005; 96372; 99284; A4216

== ENCOUNTER 2021-12-17 14:52 | Outpatient (CLI) | payer MEDICARE, SELFPAY ==
--- NOTE | 2021-12-17 15:10 | RAD_ITS ---
STUDY: AP SUPINE [id number]/pelvis OF 1412 HOURS ON 12/17/2021 REASON FOR EXAM: 76-year-old male with nausea and vomiting. TECHNIQUE: Six view AP supine abdomen study was performed per protocol. COMPARISON: None. FINDINGS: There is presence of a mild to moderate right pleural effusion. There is mild to moderate hepatomegaly. There is no splenomegaly. There is mild constipation. There are no findings of intestinal obstruction. There is no abnormal intra-abdominal calcifications or collections of air. There is mild demineralization. There are mild osteophytic degenerative changes of the thoracic spine. RAD/Abd Inc Decub and/or Erect IMPRESSION: 1. Presence of a mild to moderate right pleural effusion. 2. Mild to moderate hepatomegaly. 3. No splenomegaly. 4. Mild constipation. 5. No intestinal obstruction. 6. No abnormal intra-abdominal calcifications or collections of air. Electronically Signed: Larry Magana MD at 20:23 EDT ,
== END 2021-12-17 23:59 | disposition home or self-care (01) ==
PROVIDERS: PCP Family Medicine Geriatric Medicine; Referring Provider Family Medicine Geriatric Medicine; Visit Provider Family Medicine Geriatric Medicine
DX: R11.2 Nausea with vomiting, unspecified (principal)
CPT/HCPCS: 74019

== ENCOUNTER 2021-12-26 15:44 | Outpatient (CLI) | payer MEDICARE, SELFPAY ==
--- NOTE | 2021-12-26 15:50 | RAD_ITS ---
STUDY: X-RAY CHEST REASON FOR EXAM: Male, 76 years old. PLEURAL EFFUSION TECHNIQUE: PA and lateral. COMPARISON: Multiple prior exams, most recent December 14, 2021, oldest December 23, 2011. FINDINGS: There is similar appearance of apparent pleural scarring with elevation of the right lateral pleura and multiple old healed right posterior rib fractures compared to exam in 2012. Also stable mildly tortuous contour of the descending thoracic aorta. Normal heart size. No significant infiltrates or effusions. No free intraperitoneal air. RAD/Chest PA and Lateral IMPRESSION: Stable chest compared to exams back to 2011. Old right rib fractures and right pleural scarring and elevation. No significant effusion. Electronically Signed: Kasia Rivera MD at 21:09 EDT ,
[2021-12-26 16:36] LABS: Absolute Lymphocyte Count 2.82 X10^3/uL (0.83-4.51); Absolute Neutrophil Count 4.2 X10^3/uL (2.0-7.7); Basophil# 0.08 X10^3/uL; Eosinophils% 3.6 % (0-5); Hematocrit 44.4 % (40-54); Hemoglobin 14.9 g/dL (13.0-16.5); Lymphocyte # 2.82 X10^3/ul (0.83-4.51); Lymphocyte % 34.3 % (19-41); Mean Corp Hgb Conc 33.6 g/dL (32-36); Mean Corpuscular Hgb 29.3 pg (27.0-32.0); Mean Corpuscular Volume 87.4 fL (80-94); Mean Platelet Vol. 9.3 fl (6.2-12.0); Monocyte# 0.83 X10^3/uL; Monocyte% 10.1 % (0-10); NRBC Flagged by Analyzer 0 % (0-5); Neutrophil # 4.15 X10^3/uL (2.7-7.7); Neutrophil % 50.5 % (47-70); Platelet Count 217 K/mm3 (150-450); RBC Distribution Width CV 13.8 % (11.6-14.6); Red Blood Count 5.08 M/mm3 (4.6-6.2); White Blood Count 8.2 K/mm3 (4.4-11.0)
[2021-12-26 17:04] LABS: Vitamin D,25 Hydroxy 28.6 ng/mL
[2021-12-26 17:17] LABS: AST(SGOT) 23 U/L (15-37); Alanine Aminotransfer ALT/SGPT 38 U/L (16-61); Albumin, Serum 3.3 g/dL (3.2-5.0); Alkaline Phosphatase 84 U/L (45-117); Anion Gap 5 (5-15); BUN 9 mg/dL (7-18); BUN/Creat Ratio 7.8 RATIO (10-20); Calcium,Total 8.4 mg/dL (8.5-10.1); Chloride 102 mmol/L (98-107); Creatinine, Serum 1.16 mg/dL (0.70-1.30); EST Glomerular Filtration Rate 65 mL/min (>60); Est Glom Filt Rate - Afr Amer 79 mL/min (>60); Globulin 3.4 g/dL (2.2-4.2); Glucose 108 mg/dL (74-106); Potassium 3.6 mmol/L (3.5-5.1); Protein, Total 6.7 g/dL (6.4-8.2); Sodium Level 136 mmol/L (136-145); Thyroid Stim Hormone (TSH) 3.36 uIU/mL (0.358-3.74)
[2021-12-27 08:43] LABS: Cholesterol 118 mg/dL (200); High Density Lipoprotein 27 mg/dL; Triglycerides 178 mg/dL; Very Low Density Lipoprotein 36 mg/dL (5-40)
== END 2021-12-26 23:59 | disposition home or self-care (01) ==
LOC: POLAB3 15:45
PROVIDERS: PCP Family Medicine Geriatric Medicine; Visit Provider Family Medicine Geriatric Medicine
DX: J90 Pleural effusion, not elsewhere classified (principal); E78.5 Hyperlipidemia, unspecified; I10 Essential (primary) hypertension; E55.9 Vitamin D deficiency, unspecified; F52.8 Other sexual dysfunction not due to a substance or known physiological condition
CPT/HCPCS: 36415; 71046; 80053; 80061; 82306; 84403; 84443; 85025

== ENCOUNTER 2021-12-30 07:47 | Outpatient (CLI) | payer MEDICARE, SELFPAY ==
--- NOTE | 2021-12-30 08:00 | US_ITS ---
STUDY: ABDOMINAL ULTRASOUND - RIGHT UPPER QUADRANT REASON FOR VISIT: Male, 76 years old HEPATOMEGALY TECHNIQUE: Ultrasound evaluation of the right upper quadrant was performed with real-time and static davis-scale imaging. TECHNICAL QUALITY: Adequate. COMPARISON: None. FINDINGS: Liver: The liver is enlarged and measures 19.5 cm. There is increased echogenicity consistent with fatty infiltration. The bile ducts are within normal limits. There is hepatic color flow. The direction of portal flow is hepatopetal. There is no demonstrated mass lesion. Gallbladder: Normal distended gallbladder. The gallbladder wall measures 3 mm. There is a negative sonographic Casas''s sign. There is no pericholecystic fluid. There are multiple echogenic structures within the gallbladder, consistent with multiple gallstones. Common Bile Duct (C.B.D.): The common bile duct measures 4.4 mm. Pancreas: Normal size of the head, body and tail of the pancreas. There is increased echogenicity of the pancreas. There is no demonstrated pancreatic mass or cyst. Right Kidney: Normal size of the right kidney. The right kidney measures 12.1 cm x 4.7 cm x 5.3 cm. Normal renal cortex. The right cortex measures 2.0 cm. There is no demonstrated renal mass or cyst. There is no right hydronephrosis. US/Abdomen Limited IMPRESSION: Hepatomegaly. Diffuse fatty infiltration of the liver. Electronically Signed: Ludwin Barragan MD at 14:12 EDT ,
--- NOTE | 2021-12-30 08:01 | US_ITS ---
STUDY: ABDOMINAL ULTRASOUND - ELASTOGRAPHY REASON FOR VISIT: Male, 76 years old. Hepatomegaly and fatty infiltration of the liver. TECHNIQUE: Liver stiffness measurements were obtained on a [employer] RS 85 ultrasound machine using a CA 1-7 probe following the SRU guidelines. 3 measurements were obtained using a 2-D-SWE method. The IQR/M was 23% suggesting a quality data set. TECHNICAL QUALITY: Adequate. COMPARISON: Comparison is made with prior study done earlier today. FINDINGS: Liver: January 02 diffuse fatty infiltration of the liver. Median liver stiffness measured 6 kPa. US/Elastography Parenchyma/Organ IMPRESSION: Liver stiffness measures 6 kPa compatible with F2 (Normal to mild liver fibrosis) Metavir score. Electronically Signed: Ludwin Barragan MD at 14:14 EDT ,
== END 2021-12-30 23:59 | disposition home or self-care (01) ==
LOC: US 07:47
PROVIDERS: PCP Family Medicine Geriatric Medicine; Visit Provider Family Medicine Geriatric Medicine
DX: R16.0 Hepatomegaly, not elsewhere classified (principal)
CPT/HCPCS: 76705; 76981

== ENCOUNTER 2022-04-09 04:41 | Observation (INO) | payer MEDICARE, SELFPAY ==
[2022-04-09] VITALS (8 sets, daily range): BP systolic 142–177; BP diastolic 79–117; PULSE 57–75; RESP 15–16; TEMP 36.3–36.7; O2SAT 96–100; BMI 36.1; BMI 35.7
--- NOTE | 2022-04-09 04:45 | EKG12_ITS ---
Test Reason : CP Blood Pressure : / mmHG Vent. Rate : 062 BPM Atrial Rate : 062 BPM P-R Int : 166 ms QRS Dur : 076 ms QT Int : 420 ms P-R-T Axes : 062 022 067 degrees QTc Int : 426 ms Normal sinus rhythm Low voltage QRS Confirmed by NAKUL FONTANEZ, BLAKE ([id number]), food expeditor JOSÉ MIGUEL RICKS ([id number]) on 04/10/2022 9:23:17 AM Referred By: ISAMAR Confirmed By:BLAKE MOTA MD
--- NOTE | 2022-04-09 04:45 | RAD_ITS ---
STUDY: X-RAY CHEST REASON FOR EXAM: Male, 76 years old. chest pain TECHNIQUE: AP portable. 4:58 AM. COMPARISON: 12/26/2021. FINDINGS: LUNGS: No consolidation. Mildly elevated right hemidiaphragm with tenting, unchanged likely scarring and pleural thickening. No pneumothorax. MEDIASTINUM: Unremarkable. CARDIAC SILHOUETTE: Not enlarged. BONES AND SOFT TISSUES: Degenerative changes in the dorsal spine. Old right rib fractures. RAD/Chest 1 View (Portable) IMPRESSION: No evidence of active intrathoracic disease. Electronically Signed: Vibha Jennings MD at 5:21 EDT ,
[2022-04-09 04:54] LABS: Absolute Neutrophil Count 3.4 X10^3/uL (2.0-7.7); Basophil# 0.06 X10^3/uL; Basophil% 0.8 % (0-1); Eosinophil# 0.31 X10^3/uL; Eosinophils% 4.4 % (0-5); Hematocrit 45.8 % (40-54); Hemoglobin 14.8 g/dL (13.0-16.5); Lymphocyte % 36.8 % (19-41); Mean Corp Hgb Conc 32.3 g/dL (32-36); Mean Corpuscular Hgb 29.3 pg (27.0-32.0); Mean Corpuscular Volume 90.7 fL (80-94); Mean Platelet Vol. 8.9 fl (6.2-12.0); Monocyte# 0.67 X10^3/uL; Monocyte% 9.5 % (0-10); NRBC Flagged by Analyzer 0 % (0-5); Neutrophil % 48.1 % (47-70); Platelet Count 229 K/mm3 (150-450); RBC Distribution Width CV 13.7 % (11.6-14.6); RBC Distribution Width SD 45.5 fl (35.1-43.9); Red Blood Count 5.05 M/mm3 (4.6-6.2); White Blood Count 7.1 K/mm3 (4.4-11.0)
[2022-04-09] MEDS: Aspirin 81 MG TAB.CHEW 324 MG PO (04:54)
--- NOTE | 2022-04-09 05:00 | EDS_ITS ---
HPI History of Present Illness Chief Complaint: Chest Pain Narrative Narrative: 76-year-old male presenting with chest pain. He states that he woke up at about 330 and went to urinate and after he did he started to have chest pain which is retrosternal. He describes it as severe. He states he became very nauseous and sweaty. He felt lightheaded. Patient denies any cardiac history himself. But he states he said his brothers and his father of coronary artery disease. Patient has a past medical history of hypertension and GERD as well as hyperlipidemia. No DVT/PE risk factors. Patient denies fever, chills, cough. He felt otherwise well prior to going to bed. PFSH PFSH Medical History BPH (benign prostatic hyperplasia) GERD (gastroesophageal reflux disease) Hepatomegaly High cholesterol Hypertension Obesity Tobacco use Home Medications hydrochlorothiazide 12.5 mg tablet 12.5 tab PO DAILY 04/09/22 [History Last Taken Unknown] losartan 50 mg tablet 50 mg PO DAILY 04/09/22 [History Last Taken Unknown] omeprazole 40 mg capsule,delayed release 40 mg PO DAILY 04/09/22 [History Last Taken Unknown] pravastatin 40 mg tablet 40 mg PO QHS 04/09/22 [History Last Taken Unknown] Allergy/AdvReac Type Severity Reaction Status Date / Time No Known Allergies Allergy Verified 12/14/21 19:13 Family History (Updated 04/09/22 @ 05:[address] Yessy Cummins MD) Brother Heart disease Hypertension CAD (coronary artery disease) Myocardial infarction Father Heart disease Hypertension CAD (coronary artery disease) Myocardial infarction Social History Smoking Status: Current every day smoker tobacco type: cigars ROS ROS ED Constitutional Constitutional ED: Denies chills, fever(s), subjective or sweats Eyes Eyes: Denies change in vision ENT ENT ED: Denies rhinorrhea or sore throat Cardiovascular Cardiovascular: Reports as per HPI Respiratory/Chest Respiratory/Chest: Denies cough, dyspnea or dyspnea on exertion Gastrointestinal Gastrointestinal: Denies abdominal pain or constipation Genitourinary Genitourinary ED: Denies dysuria or hematuria Musculoskeletal Musculoskeletal: Denies arthralgias Integumentary Denies abscess or Abrasions Neurologic Neurologic: Denies headache(s) or paresthesias Psychiatric Psychiatric: Denies anxiety or depression EXAM Physical Exam Const Vital Signs: 04/09/22 04:42 04/09/22 04:45 04/09/22 04:45 Temperature 97.4 F L Temperature Source Temporal Pulse Rate 61 Respiratory Rate 15 Respiratory Effort Normal Non-Labored Respiratory Pattern Normal Blood Pressure 168/117 H 177/85 H Blood Pressure Mean 134 115 Pulse Ox 99 Oxygen Delivery Method Room Air 04/09/22 04:47 Temperature Temperature Source Pulse Rate Respiratory Rate Respiratory Effort Respiratory Pattern Blood Pressure Blood Pressure Mean Pulse Ox Oxygen Delivery Method Room Air Positive well nourished General Appearance ED: NAD; Negative for pallor HEENT Reports TM's clear and moist mucous membranes normocephalic and atraumatic Tympanic Membrane ED: Yes TM's clear Eyes PERRL and EOMs intact bilaterally General Eye ED: Negative for pale conjunctiva or scleral icterus Chest Wall palpation of chest normal Chest Narrative: Tenderness to palpation to the sternum. No deformity, crepitance. Equal symmetric breath sounds and chest wall rise. Resp normal respiratory effort and clear to auscultation bilaterally Auscultation: Negative for rales, rhonchi or wheezes Cardio regular rate and regular rhythm GI normal to inspection, nondistended, normoactive bowel sounds Extremity normal to inspection Neuro oriented x3 and CN's II-XII intact bilaterally Sensorium / Orientation: awake, alert, oriented to person and oriented to place Motor Exam: strength 5/5 throughout Psych mental status grossly normal Skin no rashes or lesions noted General Skin Exam: Negative for jaundice or pallor Heart Score History: Moderately Suspicious ECG: Normal Age: >/= 65 years Risk Factors: >/= 3 Risk Factors or History of CAD Score: 5 MDM MDM MDM Narrative Medical decision making narrative: Patient presenting with chest pain which lasted about 30 minutes. He describes it as very severe with associated symptoms of nausea, lightheadedness, feeling sweaty. Patient states this resolved and he currently does not have any nausea or pain. Patient denies cardiac history. Patient is obese and has a history of hypertension and hyperlipidemia. Heart score is 5. PERC negative. CBC within normal limits. BMP is unremarkable. High sensitive troponin is 6. The only comparison of this is when he was here few months ago for lightheadedness and it was 4 at that time. The patient does have a decent story for cardiac related chest pain and he tells me that his younger brother who is 67 of a heart attack and his older brother also of heart attack. He does have hyperlipidemia and hypertension as well. He has never had a cardiac evaluation or stress test. I recommended to him that we should admit him for this evaluation. He was amenable to this. I spoke with the hospitalist for admission. Impression: 1. Chest pain Lab Data Attestation: I reviewed the patient's lab results. Labs: Laboratory Results - last 24 hr 04/09/22 04/09/22 04:49 04:49 WBC 7.1 RBC 5.05 Hgb 14.8 Hct 45.8 MCV 90.7 MCH 29.3 MCHC 32.3 RDW Std Deviation 45.5 H RDW Coeff of Mayra 13.7 Plt Count 229 MPV 8.9 Immature Gran % (Auto) 0.400 Neut % (Auto) 48.1 Lymph % (Auto) 36.8 [place] % (Auto) 9.5 Eos % (Auto) 4.4 Baso % (Auto) 0.8 Absolute Neuts (auto) 3.4 Absolute Lymphs (auto) 2.60 Nucleated RBC % 0 Sodium 137 Potassium 3.5 Chloride 103 Carbon Dioxide 29.0 Anion Gap 5 BUN 12 Creatinine 1.22 Estim Creat Clear Calc 49.67 Est GFR (MDRD) Af Amer 75 Est GFR (MDRD) Non-Af 62 BUN/Creatinine Ratio 9.8 L Glucose 141 H Calcium 8.5 Troponin I High Sens 6 Radiography Diagnostic Testing: Clinical Impression(s) from Imaging Studies Chest X-Ray 04/09/22 04:45 IMPRESSION: No evidence of active intrathoracic disease. Electronically Signed: Vibha Jennings MD at 5:21 EDT , Discharge Plan Triage Chief Complaint: Chest Pain ED Provider: Ruslan Win Dx/Rx/DC Orders Prescriptions: No Action losartan 50 mg tablet 50 mg PO DAILY pravastatin 40 mg tablet 40 mg PO QHS Label Comments: TAKE 1 TABLET BY MOUTH ONCE DAILY AT BEDTIME omeprazole 40 mg capsule,delayed release(DR/EC) 40 mg PO DAILY Label Comments: TAKE 1 CAPSULE BY MOUTH ONCE DAILY FOR 90 DAYS hydrochlorothiazide 12.5 mg tablet 12.5 tab PO DAILY Primary Care Provider: Brad Moody Chi Referrals: Brad Moody Chi, MD [Primary Care Provider] -
[2022-04-09 05:15] LABS: Anion Gap 5 (5-15); BUN 12 mg/dL (7-18); BUN/Creat Ratio 9.8 RATIO (10-20); Calcium,Total 8.5 mg/dL (8.5-10.1); Chloride 103 mmol/L (98-107); Creatinine, Serum 1.22 mg/dL (0.70-1.30); EST Glomerular Filtration Rate 62 mL/min (>60); Est Glom Filt Rate - Afr Amer 75 mL/min (>60); Estimated Creatinine Clearance 49.67 ml/min; Glucose 141 mg/dL (74-106); Potassium 3.5 mmol/L (3.5-5.1); Sodium Level 137 mmol/L (136-145); Troponin-I HS (w/2H Reflex) 6 pg/mL (3.0-78.0)
--- NOTE | 2022-04-09 05:41 | HP.PCM.HOS_ITS ---
HPI - General General Date of Service: 04/09/22 Chief Complaint: Chest pain HPI Narrative The patient is a 76 y/o M w/ PMHx: Hx Bladder CA s/p resection, Obesity, HTN, HLD, Tobacco use, GERD, BPH who presents to the [facility] ED on 04/09/22 with history of being awoken at approximately 330 to use the restroom when he started having onset of retrosternal chest discomfort described as severe , burning sensation in nature rated 10/10 in severity with associated nausea and diaphoresis as well as lightheadedness which lasted approximately 30 minutes following complete re solution prompting ED evaluation. He denies any associated dyspnea. He reports a notable family history of cardiac disease in his brothers and his father. He denies any recent acute illness or ill contacts. Work-up in the ED included T97.4, heart rate 61, BP 168/117, respiratory rate 15, 99% on room air, CBC with WC 7.1, hemoglobin 14.8, platelet 229 without marked shift, BMP unremarkable aside glucose 141, troponin 6, chest x-ray with old right rib fractures and right pleural scarring as well as elevation unchanged from prior, EKG with SR with no acute evidence of ischemia. In the ED patient ministered aspirin full- strength. [facility] Medical History BPH (benign prostatic hyperplasia) GERD (gastroesophageal reflux disease) Hepatomegaly High cholesterol History of bladder cancer Hypertension Obesity Tobacco use Home Medications hydrochlorothiazide 12.5 mg tablet 12.5 tab PO DAILY 04/09/22 [History Last Taken Unknown] losartan 50 mg tablet 50 mg PO DAILY 04/09/22 [History Last Taken Unknown] omeprazole 40 mg capsule,delayed release 40 mg PO DAILY 04/09/22 [History Last Taken Unknown] pravastatin 40 mg tablet 40 mg PO QHS 04/09/22 [History Last Taken Unknown] Allergy/AdvReac Type Severity Reaction Status Date / Time No Known Allergies Allergy Verified 12/14/21 19:13 Family History (Updated 04/09/22 @ 05:[address] Yessy Cummins MD) Brother Heart disease Hypertension CAD (coronary artery disease) Myocardial infarction Father Heart disease Hypertension CAD (coronary artery disease) Myocardial infarction Mother Alzheimer disease Surgical History (Updated 04/09/22 @ 05:[address] Yessy Cummins MD) H/O chest tube placement H/O hand surgery History of bladder surgery History of surgery of head History of tonsillectomy and adenoidectomy Social History (Updated 04/09/22 @ 06:[address] Yessy Cummins MD) household members: none Smoking Status: Current every day smoker tobacco type: cigars how long ago did patient quit smoking: Quit 8 years during, started 18 w/ 1 pk/2.5 day until 10 cigar/d x 3 yrs. alcohol intake: never substance use type: does not use ROS ROS Narrative Admission Review of Systems: CONSTITUTIONAL: No weight loss, fever, chills, +weakness or fatigue. HEENT: Eyes: No visual loss, blurred vision, double vision or yellow sclerae. Ears, Nose, Throat: No hearing loss, sneezing, congestion, runny nose or sore throat. SKIN: No rash or itching, lesions, wounds. CARDIOVASCULAR: + chest pain, chest pressure or chest discomfort, dizziness, No palpitations, edema, orthopnea, syncopal events. RESPIRATORY: No shortness of breath, cough or sputum, wheezing, hemoptysis. GASTROINTESTINAL: + anorexia, nausea, No vomiting or diarrhea, abdominal pain, melena, BRBPR. GENITOURINARY: No dysuria, frequency, urgency or retention. NEUROLOGICAL: + Dizziness. No headache, syncope, paralysis, ataxia, numbness or tingling in the extremities, focal weakness, change in bowel or bladder control, seizure. MUSCULOSKELETAL: + muscle, back pain, joint pain or stiffness. HEMATOLOGIC: No anemia, bleeding or bruising. LYMPHATICS: No enlarged nodes. No history of splenectomy. PSYCHIATRIC: No history of depression or anxiety. ENDOCRINOLOGIC: + reports of sweating, cold or heat intolerance. No polyuria or polydipsia. ALLERGIES: No history of asthma, hives, eczema or rhinitis. Vital Signs Vital Signs Vital Signs: 04/09/22 04:42 04/09/22 04:45 04/09/22 04:45 Temperature 97.4 F L Temperature Source Temporal Pulse Rate 61 Respiratory Rate 15 Respiratory Effort Normal Non-Labored Respiratory Pattern Normal Blood Pressure 168/117 H 177/85 H Blood Pressure Mean 134 115 Pulse Ox 99 Oxygen Delivery Method Room Air 04/09/22 04:47 Temperature Temperature Source Pulse Rate Respiratory Rate Respiratory Effort Respiratory Pattern Blood Pressure Blood Pressure Mean Pulse Ox Oxygen Delivery Method Room Air Weight Weight: 230 lb 6.129 oz Body Mass Index (BMI) 36.1 Physical Exam Narrative Physical Examination: General: Awake, alert, oriented x 3 and cooperative, seated upright in the ED bed in no apparent distress, notes continued resolution of prior chest discomfort. Skin: Normal color, normal turgor, no icterus, no cyanosis except for bilateral lower extremity chronic venous stasis skin changes. HEENT: AT/NC, EOMI, PERRLA, MMM, no carotid bruits or JVD noted. Lungs: Mildly diminished, greater bases, appropriate for no rales, ronchi or wheezing. Heart: Regular rate and rhythm; no gallop, rub audible. Abdomen: Soft, obese, NTTP, ND, distant normal BS, + HM. Extremities: No cyanosis, clubbing, or edema, see skin. Neurological: Patient awake, alert, oriented as noted, cognitive function intact; pupils equally reactive to light and accommodation, cranial nerves II- XII grossly normal, moving all 4 extremities, no focal deficits, strength preserved. Psychiatric: Affect appears mild fatigue otherwise normal, no acute evidence of depressive or anxiety feelings. Results Lab / Micro Data Result Diagrams: 04/09/22 04:49 04/09/22 04:49 Labs: Laboratory Results - last 24 hr 04/09/22 04:49: WBC 7.1, RBC 5.05, Hgb 14.8, Hct 45.8, MCV 90.7, MCH 29.3, MCHC 32.3, RDW Std Deviation 45.5 H, RDW Coeff of Mayra 13.7, Plt Count 229, MPV 8.9, Immature Gran % (Auto) 0.400, Neut % (Auto) 48.1, Lymph % (Auto) 36.8, [place] % (Auto) 9.5, Eos % (Auto) 4.4, Baso % (Auto) 0.8, Absolute Neuts (auto) 3.4, Absolute Lymphs (auto) 2.60, Nucleated RBC % 0 04/09/22 04:49: Sodium 137, Potassium 3.5, Chloride 103, Carbon Dioxide 29.0, Anion Gap 5, BUN 12, Creatinine 1.22, Estim Creat Clear Calc 49.67, Est GFR (MDRD) Af Amer 75, Est GFR (MDRD) Non-Af 62, BUN/Creatinine Ratio 9.8 L, Glucose 141 H, Calcium 8.5, Troponin I High Sens 6 Radiology Impression Chest X-Ray 04/09/22 04:45 IMPRESSION: No evidence of active intrathoracic disease. Electronically Signed: Vibha Jennings MD at 5:21 EDT , Assessment & Plan Assessment/Plan (1) Chest pain: PLAN: Plan The patient is a 76 y/o M w/ PMHx: Hx Bladder CA s/p resection, FEDE non compliant with recommended CPAP, Obesity, HTN, HLD, Tobacco use, GERD, BPH who presents to the [facility] ED on 04/09/22 with history of being awoken at approximately 330 to use the restroom when he started having onset of retrosternal chest discomfort described as severe with associated nausea and diaphoresis as well as lightheadedness which lasted approximately 30 minutes following complete resolution prompting ED evaluation. #1. Chest Pain: EKG in ED with SR with no acute evidence of ischemia, CXR w/ with chronic changes with right pleural scarring and elevation unchanged from prior, initial trop 6. Will admit to PCU, place on a monitored bed to assure no acute myocardial infarction with serial cardiac enzymes and EKGs. If repeat ser ial cardiac enzymes and EKGs remain unremarkable will pursue a.m. cardiac stress testing. FLP in AM. Magnesium level requested. ASA, NG, morphine. #2. Hyperglycemia: Admission glucose 141, will obtain hemoglobin A1c to be cautious and if elevated will transition to ADA diet with insulin sliding scale with Accu-Cheks. #3. Hypertension: Continue home regimen including losartan, hydrochlorothia zide, PRN hydralazine. #4. Hyperlipidemia: Continue home statin regimen. AM FLP. #5. Known hepatomegaly: 12/30/2021 abdominal ultrasound with noted enlargement of the liver measuring 19.5 cm with increased echogenicity consistent with fatty infiltration, liver elastography with liver stiffness compatible with normal to mild liver fibrosis. #6. Obesity: Weight loss and lifestyle changes encouraged. #7. GERD: We will continue patient home PPI. #8. Tobacco Abuse: Encouraged cessation, inpatient consultation per RT, NR if desired. #9. BPH: Not on any medications, continue to monitor if symptomatic may consider adding Flomax. #10. FEDE: Notes he was diagnosed with FEDE but declined CPAP set-up, evaluation, rx. #11. History of bladder cancer: Status post resection, considered in remission. #12. DVT prophylaxis: SCDs, Lovenox. Charges/Coding Visit Charges OBSV E&M: 83361 Initial observation care L3
[2022-04-09 06:15] LABS: Magnesium 1.9 mg/dL (1.6-2.6)
--- NOTE | 2022-04-09 06:34 | EKG12_ITS ---
Test Reason : CP ADMISSION Blood Pressure : / mmHG Vent. Rate : 061 BPM Atrial Rate : 061 BPM P-R Int : 176 ms QRS Dur : 078 ms QT Int : 444 ms P-R-T Axes : 074 045 079 degrees QTc Int : 446 ms Normal sinus rhythm Low voltage QRS (Limg Leads) Borderline ECG Confirmed by NAKUL FONTANEZ, BLAKE ([id number]), online content editor JOSÉ MIGUEL RICKS ([id number]) on 04/10/2022 9:26:26 AM Referred By: Confirmed By:BLAKE MOTA MD
[2022-04-09 06:52] LABS: Reflex Troponin-HS? (from REC) Y
[2022-04-09] MEDS: Losartan Potassium 50 MG Tablet PO (07:01)
[2022-04-09 07:36] LABS: Troponin-I HS 5 pg/mL (3.0-78.0)
[2022-04-09] MEDS: 0.9% Normal Saline 1,000 ML 100 ML IV (07:54)
[2022-04-09 11:20] LABS: Troponin-I HS 6 pg/mL (3.0-78.0)
--- NOTE | 2022-04-09 12:56 | STRESSREP ---
Stress Test Report Date: 04-09-2022 Procedure: Exercise tolerance test/imaging study Indications: Chest pain Consent: Per the patient Procedure: The patient exercised on a Hebert protocol for 5 minutes completing Stage I and 2 minutes of Stage II achieving a peak heart rate of 144 bpm (98% predicted maximal heart rate) with a peak blood pressure 200/90 mmHg and a peak MET capacity of 7 METs. The baseline ECG demonstrated sinus bradycardia. The peak exercise ECG demonstrated somatic/motion artifact with no obvious ECG changes. There were no cardiac dysrhythmias pretest, during exercise, or recovery. The functional capacity was considered good. There was no complaint of chest discomfort during exercise or recovery. The examination was discontinued secondary to dyspnea. Impression: 1. Technically adequate (percent predicted maximal heart rate greater than 85%) exercise tolerance test 2. Peak exercise ECG with somatic/motion artifact with no obvious ECG changes 3. There were no cardiac dysrhythmias pretest, during exercise, or recovery 4. Nuclear images pending Myocardial perfusion imaging study: Technique: The patient was injected with 14.7 mCi of technetium 99m Cardiolite and subsequently rest SPECT Cardiolite nuclear imaging was obtained in the horizontal long, vertical long, and short axis views. The patient exercised on a Hebert protocol for 5 minutes completing Stage I and 2 minutes of Stage II achieving a peak heart rate of 144 bpm (98% predicted maximal heart rate) with a peak blood pressure 200/90 mmHg and a peak MET capacity of 7 METs. The patient was injected with 44.9 mCi of technetium 99m Cardiolite and subsequently stress SPECT Cardiolite nuclear imaging was obtained in the horizontal long, vertical long, and short axis views. A gated Cardiolite study at peak stress was obtained. Interpretation: Rest and stress SPECT Cardiolite nuclear imaging status post realignment, normalization, and attenuation correction, demonstrates the appearance of relative uniform tracer uptake and myocardial perfusion appearing within normal limits. There is end systolic thickening and brightening. The gated Cardiolite study demonstrates myocardial thickening and inward wall motion. The reported LVEF is 68%. Impression: 1. Rest and stress SPECT Cardiolite nuclear imaging demonstrate relative uniform tracer uptake and myocardial perfusion appearing within normal limits. 2. The gated Cardiolite study reports an LVEF of 68%. This note was generated with [employer] software. It may contain incorrect words, spelling, and punctuation that were not noted in checking the note before signing.
--- NOTE | 2022-04-09 13:43 | DCINST_ITS ---
Discharge Instructions Diet Discharge Diet: No restrictions Activity Discharge Activity: Return to Normal Activity Weight Bearing Status: Full weight bearing Follow Up Care Test Results: Test results from this visit will be discussed in further detail at your follow- up appointment, if applicable. Discharge Plan Admission Admit Date/Time: 04/09/22 05:41 Primary Reason for Your Visit: chest pain Attending Provider: Ash Brown Primary Care Provider: Brad Moody Chi Consulting Providers: Yessy Cummins Discharge Orders/Prescriptions Prescriptions: Continued losartan 50 mg tablet 50 mg PO DAILY pravastatin 40 mg tablet 40 mg PO QHS Label Comments: TAKE 1 TABLET BY MOUTH ONCE DAILY AT BEDTIME omeprazole 40 mg capsule,delayed release(DR/EC) 40 mg PO DAILY Label Comments: TAKE 1 CAPSULE BY MOUTH ONCE DAILY FOR 90 DAYS hydrochlorothiazide 12.5 mg tablet 12.5 tab PO DAILY Referrals / Follow Up: Brad Moody Chi, MD [Primary Care Provider] - Within 2 Weeks Disposition Disposition (needs filled in before D/C Order can be placed): Home, Self Care
--- NOTE | 2022-04-09 13:56 | CHAPLAIN ---
Type of Pastoral Visit _x__ Initial Visit ___ Follow-up Visit ___ On-call Visit ___ General Patient Visit ___ Spiritual Assessment ___ Family Conference ___ Bereavement ___ Rapid Response ___ Code Blue ___ Other (describe below) Pastoral Care Referral From _x__ Patient ___ Family ___ Nurse ___ Physician ___ Die Mounter ___ Foot Setter ___ Other (describe below) Sacrament/Intervention _x__ Active listening ___ Anointing ___ Gnosticist ___ Bereavement ___ Communion ___ Aminata exploration ___ _x__ Life review _x__ Prayer ___ Reconciliation ___ Sacrament of Sick ___ Supportive presence ___ Wedding ___ Other (describe below) Pastoral Comments 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
--- NOTE | 2022-04-09 19:57 | DS.PCM_ITS ---
Providers Date of Admission: 04/09/22 Date of Discharge: 04/09/22 Primary Care Physician: Dr. Brad Moody MD Reason For Visit: CHEST PAIN Diagnosis Discharge Diagnosis (1) Chest pain: Status: Acute Code(s): R07.9 - Chest pain, unspecified Plan 1. Musculoskeletal chest pain #2 essential hypertension #3 hyperlipidemia Medications at Discharge Home Medications hydrochlorothiazide 12.5 mg tablet 12.5 tab PO DAILY 04/09/22 losartan 50 mg tablet 50 mg PO DAILY 04/09/22 omeprazole 40 mg capsule,delayed release 40 mg PO DAILY 04/09/22 pravastatin 40 mg tablet 40 mg PO QHS 04/09/22 Hospital Course Operations None Procedures Nuclear stress test Summary of Care Provided Minutes Spent on Discharge: 30 Hospital Course: 76-year-old white male was seen in the emergency room at [facility] with chief complaint of retrosternal chest pain. Patient also com plained of nausea and diaphoresis. Patient's chest pain resolved in the emergency room, BMP was unremarkable, CBC was within normal limits, troponin was normal. Patient's chest x-ray was unremarkable, EKG showed no evidence of ischemic changes. Patient was placed in observation status on PCU, cardiac enzymes were cycled and was remain normal. Patient underwent a nuclear stress test on 04/09/2022 which was negative for reversible ischemia. On 04/09/2022, patient was seen and examined: On examination he appeared in good health and spirits. Vital signs as documented. Skin warm and dry and without overt rashes. Neck without JVD, neck was supple, trachea midline, thyroid was normal. Lungs clear bilaterally, normal air movement was noted. Heart exam notable for regular rhythm, normal sounds and absence of murmurs, rubs or gallops. Abdomen unremarkable and without evidence of organomegaly, masses, or abdominal aortic enlargement. Bowel sounds are present, abdomen is not distended. Extremities nonedematous, no cyanosis was noted, no clubbing was noted. Neuro: Cranial nerves II through XII are grossly intact, no focal motor deficits were noted, sensation to light touch and pinprick intact, motor exam 5/5 throughout. Psych: Patient is alert and oriented x3, he does not appear anxious or depressed, he does not appear agitated. Patient was discharged home in stable condition on 04/09/2022. Weight / BMI Weight Weight: 103.5 kg Body Mass Index (BMI) 35.7 ABG / Lab / Microbiology Data Result Diagrams: 04/09/22 04:49 04/09/22 04:49 Laboratory: Laboratory Results - last 24 hr 04/09/22 04:49: WBC 7.1, RBC 5.05, Hgb 14.8, Hct 45.8, MCV 90.7, MCH 29.3, MCHC 32.3, RDW Std Deviation 45.5 H, RDW Coeff of Mayra 13.7, Plt Count 229, MPV 8.9, Immature Gran % (Auto) 0.400, Neut % (Auto) 48.1, Lymph % (Auto) 36.8, [place] % (Auto) 9.5, Eos % (Auto) 4.4, Baso % (Auto) 0.8, Absolute Neuts (auto) 3.4, Absolute Lymphs (auto) 2.60, Nucleated RBC % 0 04/09/22 04:49: Sodium 137, Potassium 3.5, Chloride 103, Carbon Dioxide 29.0, Anion Gap 5, BUN 12, Creatinine 1.22, Estim Creat Clear Calc 49.67, Est GFR (MDRD) Af Amer 75, Est GFR (MDRD) Non-Af 62, BUN/Creatinine Ratio 9.8 L, Glucose 141 H, Calcium 8.5, Troponin I High Sens 6 04/09/22 04:49: Magnesium 1.9 04/09/22 04:49: Hemoglobin A1c 6.0 H 04/09/22 07:00: Troponin I High Sens 5 04/09/22 10:35: Troponin I High Sens 6 Radiography Diagnostic Testing: Radiology Impression Chest X-Ray 04/09/22 04:45 IMPRESSION: No evidence of active intrathoracic disease. Electronically Signed: Vibha Jennings MD at 5:21 EDT , D/C Instructions Discharge Diet: No restrictions Weight Bearing Status: Full weight bearing Meaningful Use Info Meaningful Use Diagnoses (Choose all that apply): None applicable Discharge Plan Admission Admit Date/Time: 04/09/22 05:41 Primary Reason for Your Visit: chest pain Attending Provider: Ash Brown Primary Care Provider: Brad Moody [employer] Providers: Yessy Cummins Discharge Orders/Prescriptions Prescriptions: Continued losartan 50 mg tablet 50 mg PO DAILY pravastatin 40 mg tablet 40 mg PO QHS Label Comments: TAKE 1 TABLET BY MOUTH ONCE DAILY AT BEDTIME omeprazole 40 mg capsule,delayed release(DR/EC) 40 mg PO DAILY Label Comments: TAKE 1 CAPSULE BY MOUTH ONCE DAILY FOR 90 DAYS hydrochlorothiazide 12.5 mg tablet 12.5 tab PO DAILY Referrals / Follow Up: Brad Moody Chi, MD [Primary Care Provider] - Within 2 Weeks Disposition Disposition (needs filled in before D/C Order can be placed): Home, Self Care Charges/Coding Visit Charges OBSV E&M: 47367 Observation care discharge
== END 2022-04-09 13:44 | disposition home or self-care (01) ==
LOC: ED 05:29 → PCU 06:06
PROVIDERS: Admitting Provider Family Medicine; Emergency Provider Student in an Organized Health Care Education/Training Program; PCP Family Medicine Geriatric Medicine; Visit Provider Internal Medicine
DX: R07.89 Other chest pain (principal); F17.290 Nicotine dependence, other tobacco product, uncomplicated; I10 Essential (primary) hypertension; E78.5 Hyperlipidemia, unspecified; R11.0 Nausea; R42 Dizziness and giddiness; K21.9 Gastro-esophageal reflux disease without esophagitis; N40.0 Benign prostatic hyperplasia without lower urinary tract symptoms; E66.9 Obesity, unspecified; Z68.36 Body mass index [BMI] 36.0-36.9, adult; Z79.899 Other long term (current) drug therapy; Z82.49 Family history of ischemic heart disease and other diseases of the circulatory system; R73.9 Hyperglycemia, unspecified
CPT/HCPCS: 36415; 71045; 78452; 80048; 83036; 83735; 84484; 85025; 90471; 93005; 93017; 96360; 96361; 99218; 99285; A9500; J7030; A4216; G0378

== ENCOUNTER → 2022-07-02 | Outpatient (CLI) | payer MEDICARE, SELFPAY ==
[2022-07-02 13:40] LABS: Absolute Lymphocyte Count 2.38 X10^3/uL (0.83-4.51); Absolute Neutrophil Count 3.7 X10^3/uL (2.0-7.7); Basophil# 0.06 X10^3/uL; Basophil% 0.8 % (0-1); Eosinophil# 0.27 X10^3/uL; Eosinophils% 3.7 % (0-5); Hematocrit 49.6 % (40-54); Hemoglobin 15.9 g/dL (13.0-16.5); Lymphocyte # 2.38 X10^3/ul (0.83-4.51); Mean Corp Hgb Conc 32.1 g/dL (32-36); Mean Corpuscular Hgb 28.9 pg (27.0-32.0); Mean Corpuscular Volume 90.2 fL (80-94); Mean Platelet Vol. 9.5 fl (6.2-12.0); Monocyte% 9.7 % (0-10); NRBC Flagged by Analyzer 0 % (0-5); Neutrophil % 51.3 % (47-70); Platelet Count 229 K/mm3 (150-450); RBC Distribution Width CV 13.9 % (11.6-14.6); RBC Distribution Width SD 45.9 fl (35.1-43.9); White Blood Count 7.2 K/mm3 (4.4-11.0)
[2022-07-02 14:26] LABS: Vitamin D,25 Hydroxy 28.4 ng/mL
[2022-07-02 14:27] LABS: ALB/GLOB Ratio 0.9 RATIO (0.9-2.4); AST(SGOT) 19 U/L (15-37); Alanine Aminotransfer ALT/SGPT 37 U/L (16-61); Albumin, Serum 3.4 g/dL (3.2-5.0); Alkaline Phosphatase 82 U/L (45-117); Anion Gap 6 (5-15); BUN 12 mg/dL (7-18); BUN/Creat Ratio 10.9 RATIO (10-20); Calcium,Total 9.1 mg/dL (8.5-10.1); Chloride 104 mmol/L (98-107); Cholesterol 174 mg/dL (200); EST Glomerular Filtration Rate 69 mL/min (>60); Est Glom Filt Rate - Afr Amer 84 mL/min (>60); Globulin 3.7 g/dL (2.2-4.2); Glucose 90 mg/dL (74-106); High Density Lipoprotein 28 mg/dL; PSA,Total - Annual Screen 1.03 ng/mL (0.00-4.00); Potassium 3.6 mmol/L (3.5-5.1); Protein, Total 7.1 g/dL (6.4-8.2); Sodium Level 139 mmol/L (136-145); Thyroid Stim Hormone (TSH) 3.53 uIU/mL (0.358-3.74); Triglycerides 172 mg/dL; Very Low Density Lipoprotein 34 mg/dL (5-40)
== END | disposition home or self-care (01) ==
LOC: POLAB3 09:02
PROVIDERS: PCP Family Medicine Geriatric Medicine; Visit Provider Family Medicine Geriatric Medicine
DX: E78.5 Hyperlipidemia, unspecified (principal); I10 Essential (primary) hypertension; E55.9 Vitamin D deficiency, unspecified; F52.8 Other sexual dysfunction not due to a substance or known physiological condition; Z12.5 Encounter for screening for malignant neoplasm of prostate
CPT/HCPCS: 36415; 80053; 80061; 82306; 84153; 84403; 84443; 85025; G0103

== ENCOUNTER 2022-12-02 16:21 | Inpatient (IN) | payer MEDICARE, SELFPAY ==
[2022-12-02 16:21] VITALS: BP 139/79; PULSE 75; RESP 18; TEMP 36.1; O2SAT 98; BMI 35.0
[2022-12-02] MEDS: 0.9% Normal Saline 1,000 ML 125 ML IV ×2 (16:46→21:48)
--- NOTE | 2022-12-02 16:46 | US_ITS ---
STUDY: ABDOMINAL ULTRASOUND - RIGHT UPPER QUADRANT REASON FOR VISIT: Male, 77 years old abdominal pain TECHNIQUE: Ultrasound evaluation of the right upper quadrant was performed with real-time and static davis-scale imaging. TECHNICAL QUALITY: Adequate. COMPARISON: None. FINDINGS: Liver: The liver measures 19 cm. There is diffusely increased echogenicity of the liver. The bile ducts are within normal limits. There is hepatic color flow. The direction of portal flow is hepatopetal. There is no demonstrated mass lesion. Gallbladder: Normal distended gallbladder. The gallbladder wall measures 8 mm. There is a negative sonographic Casas''s sign. There is pericholecystic fluid. There are multiple gallstones. Common Bile Duct (C.B.D.): The common bile duct measures 6 mm. Pancreas: Not well visualized due to bowel gas producing artifact. Right Kidney: Normal size of the right kidney. The right kidney measures 11.6 x 7 x 6 cm. Normal renal cortex. The right cortex measures 1.5 cm. There is no demonstrated renal mass or cyst. There is no right hydronephrosis. US/Gallbladder IMPRESSION: Thick-walled gallbladder containing stones with pericholecystic edema suspicious for chronic cholecystitis and superimposed acute cholecystitis. HIDA scan would be useful for further evaluation if clinically warranted Common bile duct is upper normal in size and there is no definitive evidence for intraductal stone Electronically Signed: Phani Salamanca MD at 17:54 EST ,
--- NOTE | 2022-12-02 16:46 | ED.VIS.GI ---
HPI HPI - GI History of Present Illness Chief Complaint: Abd Pain Detail of Chief Complaint: Abdominal pain Informant: patient Narrative Narrative: Patient presents to the emergency department from outpatient CT for concern for a calculus cholecystitis. Patient tells me that 6 days ago after eating he felt full very quickly and became quite nauseated but did not vomit. States subsequently did well for several days and then 3 days ago ate some chicken noodle soup again got very full very quickly. Today saw his primary care physician who examined him and upon pushing on his abdomen became concerned as to how tender he was. Patient had lab work-up which showed a normal white count and slightly elevated LFTs. Patient had a CT scan of the abdomen and pelvis that showed thick-walled gallbladder with pericholecystic edema without definitive evidence for intraluminal stones possibly representing a calculus cholecystitis. Ultrasound would be helpful for further evaluation. Patient denies any abdominal pain. He denies any fever. He denies chest pain. He is not on blood thinners. Prior similar symptoms: No PFSH PFSH Medical History BPH (benign prostatic hyperplasia) GERD (gastroesophageal reflux disease) Hepatomegaly High cholesterol History of bladder cancer Hypertension Obesity Tobacco use Home Medications hydrochlorothiazide 12.5 mg tablet 12.5 tab PO DAILY 04/09/22 [History Last Taken 12/02/22] losartan 50 mg tablet 50 mg PO DAILY 04/09/22 [History Last Taken 12/02/22] omeprazole 40 mg capsule,delayed release 40 mg PO DAILY 04/09/22 [History Last Taken 12/02/22] Allergy/AdvReac Type Severity Reaction Status Date / Time No Known Allergies Allergy Verified 12/02/22 16:39 Family History Brother Heart disease Hypertension CAD (coronary artery disease) Myocardial infarction Father Heart disease Hypertension CAD (coronary artery disease) Myocardial infarction Mother Alzheimer disease Surgical History H/O chest tube placement H/O hand surgery History of bladder surgery History of surgery of head History of tonsillectomy and adenoidectomy Social History (Updated 04/09/22 @ 06:44 by Nani Schilling) household members: none housing: house number of children: 1 current occupational status: retired Smoking Status: Current every day smoker tobacco type: cigars how long ago did patient quit smoking: Quit 8 years during, started 18 w/ 1 pk/2.5 day until 10 cigar/d x 3 yrs. alcohol intake: never substance use type: does not use ROS ROS ED Review of Systems ROS Unobtainable: other Constitutional Constitutional ED: Reports lethargy; Denies chills, fever(s), sweats or weight loss Eyes Eyes: Denies blurry vision, change in vision or diplopia ENT ENT ED: Denies rhinorrhea or sore throat Cardiovascular Cardiovascular: Denies chest pain, orthopnea or racing heartbeat Respiratory/Chest Respiratory/Chest: Denies cough, dyspnea, dyspnea on exertion, orthopnea or sputum Gastrointestinal Gastrointestinal: Reports nausea; Denies abdominal pain, diarrhea or vomiting Genitourinary Genitourinary ED: Denies dysuria, hematuria or urinary frequency Musculoskeletal Musculoskeletal: Denies arthralgias, back pain, myalgias or neck pain Integumentary Denies abscess, Abrasions or rash Neurologic Neurologic: Denies headache(s) or weakness Psychiatric Psychiatric: Denies anxiety, depression or suicidal thoughts Endocrine Endocrinology: Denies polydipsia, polyphagia or polyuria Hematologic/Lymphatic Hematologic/Lymphatic: Denies easy bleeding, easy bruising or lymphadenopathy Allergic/Immunologic Allergic/Immunologic ED: Denies mouth swelling, tongue swelling or urticaria EXAM Physical Exam Const Vital Signs: 12/02/22 16:21 Temperature 97 F L Temperature Source Temporal Pulse Rate 75 Respiratory Rate 18 Blood Pressure 139/79 H Blood Pressure Mean 99 Pulse Ox 98 Oxygen Delivery Method Room Air Positive well nourished and well developed General Appearance ED: well developed and NAD HEENT Reports TM's clear and moist mucous membranes normocephalic and atraumatic; Negative for trauma or tenderness Tympanic Membrane ED: Yes TM's clear Eyes PERRL and EOMs intact bilaterally General Eye ED: Negative for pale conjunctiva or scleral icterus Neck no lymphadenopathy, supple and no JVD General: Negative for tenderness Chest Wall inspection of chest normal and palpation of chest normal Chest: Negative for tenderness Resp normal respiratory effort and clear to auscultation bilaterally Effort and Inspection: Negative for respiratory distress or pain with movement Auscultation: Negative for rhonchi, wheezes or diminished lung sounds Cardio regular rate, regular rhythm, S1 normal heart sound, S2 normal heart sound and no murmurs Peripheral Pulses: pulses 2+ throughout GI normal to inspection, nondistended, normoactive bowel sounds, soft to palpation, non-distended and no masses GI Narrative: Tenderness palpation over the mid right abdomen and right lower quadrant. Patient with minimal tenderness underneath the right ribs and negative Casas sign. Patient does have guarding on exam. Patient does have some rebound. Back/Spine no CVA tenderness and no thoracic nor lumbar tenderness Extremity normal to inspection General Extremety ED: Negative for edema General Extremity: Negative for edema Neuro oriented x3, CN's II-XII intact bilaterally, no sensory deficits noted and gait normal Sensorium / Orientation: awake, alert, oriented to person, oriented to place and oriented to time Motor Exam: strength 5/5 throughout and strength abnormal Psych mental status grossly normal Skin no rashes or lesions noted and no wounds MDM MDM MDM Narrative Medical decision making narrative: Patient had an IV line established on arrival. I discussed case with general surgeon on-call who recommended that we obtain a gallbladder ultrasound and he will evaluate patient. Patient was seen by the surgeon in the department and surgeon recommended Zosyn antibiotics and he will admit the patient. It was noted on prior ultrasound the patient did have history of gallstones. Patient will be admitted for acute cholecystitis. Discharge Plan Triage Chief Complaint: Abd Pain ED Provider: Sanaz Dunbar Dx/Rx/DC Orders Clinical Impression: Acute cholecystitis, Abdominal pain, acute, Hx of gastroesophageal reflux (GERD) Prescriptions: No Action losartan 50 mg tablet 50 mg PO DAILY omeprazole 40 mg capsule,delayed release(DR/EC) 40 mg PO DAILY Label Comments: TAKE 1 CAPSULE BY MOUTH ONCE DAILY FOR 90 DAYS hydrochlorothiazide 12.5 mg tablet 12.5 tab PO DAILY Primary Care Provider: Brad Moody Chi Referrals: Brad Moody Chi, MD [Primary Care Provider] - Disposition Disposition: Acute Care Hospital [facility]
--- NOTE | 2022-12-02 17:13 | NURSING ---
MED SURG PARVIN CHOLECYSTITIS, ABD PAIN
[2022-12-02 17:26] VITALS: BP 137/88; PULSE 84; RESP 16; TEMP 36.4; O2SAT 97
[2022-12-02 18:15] VITALS: BP 136/66; PULSE 69; RESP 18; TEMP 36; O2SAT 96
[2022-12-02 18:18] VITALS: BMI 34.8
--- NOTE | 2022-12-02 19:52 | PCM.HP.STD ---
[facility] - General General Date of Admission: 12/02/22 [facility] Narrative ORTIZ MELISSA, is a 77 M who presents from his PCP. He says he got sick last Thursday and after a few days went to see his Doctor. He denies fever or chills. He does have RUQ pain. Denies nausea or vomiting. PFSH Medical History BPH (benign prostatic hyperplasia) GERD (gastroesophageal reflux disease) Hepatomegaly High cholesterol History of bladder cancer Hypertension Obesity Tobacco use Home Medications hydrochlorothiazide 12.5 mg tablet 12.5 tab PO DAILY 04/09/22 [History Last Taken 12/02/22] losartan 50 mg tablet 50 mg PO DAILY 04/09/22 [History Last Taken 12/02/22] omeprazole 40 mg capsule,delayed release 40 mg PO DAILY 04/09/22 [History Last Taken 12/02/22] Allergy/AdvReac Type Severity Reaction Status Date / Time No Known Allergies Allergy Verified 12/02/22 16:39 Family History Brother Heart disease Hypertension CAD (coronary artery disease) Myocardial infarction Father Heart disease Hypertension CAD (coronary artery disease) Myocardial infarction Mother Alzheimer disease Surgical History H/O chest tube placement H/O hand surgery History of bladder surgery History of surgery of head History of tonsillectomy and adenoidectomy Social History (Updated 04/09/22 @ 06:44 by Nani Schilling) household members: none housing: house number of children: 1 current occupational status: retired Smoking Status: Current some day smoker tobacco type: cigars how long ago did patient quit smoking: Quit 8 years during, started 16 w/ 1 pk/2.5 day until 10 cigar/d x 3 yrs. alcohol intake: never substance use type: does not use ROS Constitutional Constitutional: Reports anorexia and fatigue; Denies chills or fever(s) Eyes Eyes: Denies blurry vision ENT HEENT: Denies abnormal hearing Cardiovascular Cardiovascular: Denies chest pain Respiratory/Chest Respiratory/Chest: Denies cough or dyspnea Gastrointestinal Gastrointestinal: Reports abdominal pain; Denies constipation, diarrhea, dysphagia, nausea, rectal bleeding or vomiting Genitourinary Genitourinary: Denies change in urinary stream or dysuria Musculoskeletal Musculoskeletal: Denies abnormal gait or difficulty walking Neurologic Neurologic: Denies dizziness Psychiatric Psychiatric: Denies anxiety Endocrine Endocrinology: Denies flushing Hematologic/Lymphatic Hematologic/Lymphatic: Denies easy bleeding Vital Signs Vital Signs Vital Signs: 12/02/22 16:21 12/02/22 17:26 12/02/22 18:15 Temperature 97 F L 97.6 F L 96.8 F L Temperature Source Temporal Oral Temporal Pulse Rate 75 84 69 Respiratory Rate 18 16 18 Respiratory Effort Respiratory Depth Respiratory Pattern Blood Pressure 139/79 H 137/88 H 136/66 H Blood Pressure Mean 99 104 89 Blood Pressure Source Monitor Blood Pressure Position Semi-Fowlers Blood Pressure Location Right Arm Pulse Ox 98 97 96 Oxygen Delivery Method Room Air Room Air Room Air 12/02/22 18:00 Temperature Temperature Source Pulse Rate Respiratory Rate Respiratory Effort Normal Non-Labored Respiratory Depth Normal Respiratory Pattern Normal Blood Pressure Blood Pressure Mean Blood Pressure Source Blood Pressure Position Blood Pressure Location Pulse Ox Oxygen Delivery Method Room Air Weight Weight: 222 lb 6.4 oz Body Mass Index (BMI) 34.8 Physical Exam Const oriented x3 and no apparent distress Resp normal respiratory effort GI soft to palpation Palpation: tender RUQ external exam normal Extremity normal to inspection Results Radiology Impression Gallbladder Ultrasound 12/02/22 16:46 IMPRESSION: Thick-walled gallbladder containing stones with pericholecystic edema suspicious for chronic cholecystitis and superimposed acute cholecystitis. HIDA scan would be useful for further evaluation if clinically warranted Common bile duct is upper normal in size and there is no definitive evidence for intraductal stone Electronically Signed: Phani Salamanca MD at 17:54 EST , Assessment & Plan Assessment/Plan (1) Acute cholecystitis: PLAN: Patient has a normal white count but his CT scan shows cholecystitis with significant edema around his gallbladder. It also appears his colon is thickened which may be reactive to the gallbladder. As this has been going on for several days I believe that he would benefit from antibiotics and cholecystostomy tube placement. Then in a few weeks when everything calms down I will offer the patient cholecystectomy. Will admit the patient on antibiotics and order Cholecystostomy tube. Luis Antonio Daly MD
[2022-12-02 21:46] VITALS: BP 113/76; PULSE 70; RESP 18; TEMP 36.7; O2SAT 97
[2022-12-03] VITALS (13 sets, daily range): BP systolic 112–154; BP diastolic 60–102; PULSE 58–77; RESP 15–24; TEMP 36.6–37.1; O2SAT 20–100
[2022-12-03] MEDS: 0.9% Normal Saline 1,000 ML 125 ML IV (03:23)
[2022-12-03 06:34] LABS: Absolute Lymphocyte Count 1.86 X10^3/uL (0.83-4.51); Absolute Neutrophil Count 4.6 X10^3/uL (2.0-7.7); Basophil# 0.05 X10^3/uL; Basophil% 0.7 % (0-1); Eosinophil# 0.16 X10^3/uL; Eosinophils% 2.1 % (0-5); Hematocrit 39.2 % (40-54); Hemoglobin 13.3 g/dL (13.0-16.5); Lymphocyte # 1.86 X10^3/ul (0.83-4.51); Lymphocyte % 24.9 % (19-41); Mean Corp Hgb Conc 33.9 g/dL (32-36); Mean Corpuscular Volume 88.3 fL (80-94); Mean Platelet Vol. 9.1 fl (6.2-12.0); Monocyte# 0.77 X10^3/uL; Monocyte% 10.3 % (0-10); NRBC Flagged by Analyzer 0 % (0-5); Neutrophil # 4.56 X10^3/uL (2.7-7.7); Neutrophil % 60.9 % (47-70); Platelet Count 237 K/mm3 (150-450); RBC Distribution Width SD 45.4 fl (35.1-43.9); Red Blood Count 4.44 M/mm3 (4.6-6.2); White Blood Count 7.5 K/mm3 (4.4-11.0)
[2022-12-03 06:46] LABS: International Normalized Ratio 1.1; Prothrombin Time (Protime)PT. 14.1 SECONDS (11.7-14.9)
[2022-12-03 07:10] LABS: ALB/GLOB Ratio 0.6 RATIO (0.9-2.4); AST(SGOT) 28 U/L (15-37); Alanine Aminotransfer ALT/SGPT 48 U/L (16-61); Albumin, Serum 2.4 g/dL (3.2-5.0); Alkaline Phosphatase 92 U/L (45-117); Anion Gap 8 (5-15); BUN 16 mg/dL (7-18); BUN/Creat Ratio 15.5 RATIO (10-20); Calcium,Total 8.5 mg/dL (8.5-10.1); Chloride 103 mmol/L (98-107); Creatinine, Serum 1.03 mg/dL (0.70-1.30); EST Glomerular Filtration Rate 75 mL/min (>60); Est Glom Filt Rate - Afr Amer 90 mL/min (>60); Estimated Creatinine Clearance 57.94 ml/min; Globulin 3.7 g/dL (2.2-4.2); Glucose 87 mg/dL (74-106); Potassium 3.1 mmol/L (3.5-5.1); Protein, Total 6.1 g/dL (6.4-8.2); Sodium Level 136 mmol/L (136-145)
[2022-12-03] MEDS: Pantoprazole Sodium 40 MG Tablet PO (09:12)
[2022-12-03] MEDS: Losartan Potassium 50 MG Tablet PO (09:12)
[2022-12-03] MEDS: hydroCHLOROthiazide 12.5mg 12.5 MG PO (09:12)
--- NOTE | 2022-12-03 10:31 | PN.SURG_ITS ---
Subjective Subjective Patient is not complaining of any new pain or vomiting Objective Data Objective Data Vital Signs: Vital Signs Temp Pulse Resp BP Pulse Ox O2 Del Method 98 F 68 18 112/67 97 Room Air 12/03/22 09:02 12/03/22 09:02 12/03/22 09:02 12/03/22 09:02 12/03/22 09:02 12/03/22 09:13 Oxygen Delivery Method Room Air Weight: 222 lb 6.4 oz Body Mass Index (BMI) 34.8 Intake & Output: Intake and Output for Last 24 Hours 12/01/22 12/02/22 12/03/22 23:59 23:59 23:59 Intake Total 729.17 / 729.17 945.84 / 945.84 Balance 729.17 / 729.17 945.84 / 945.84 Lab / Micro Data Result Diagrams: 12/03/22 06:10 12/03/22 06:10 Labs: Laboratory Results - last 24 hr 12/03/22 06:10: WBC 7.5, RBC 4.44 L, Hgb 13.3, Hct 39.2 L, MCV 88.3, MCH 30.0, MCHC 33.9, RDW Std Deviation 45.4 H, RDW Coeff of Mayra 14.0, Plt Count 237, MPV 9.1, Immature Gran % (Auto) 1.100 H, Neut % (Auto) 60.9, Lymph % (Auto) 24.9, Charles % (Auto) 10.3 H, Eos % (Auto) 2.1, Baso % (Auto) 0.7, Absolute Neuts (auto) 4.6, Absolute Lymphs (auto) 1.86, Nucleated RBC % 0 12/03/22 06:10: PT 14.1, INR 1.1, APTT 34.0 12/03/22 06:10: Sodium 136, Potassium 3.1 L, Chloride 103, Carbon Dioxide 25.0, Anion Gap 8, BUN 16, Creatinine 1.03, Estim Creat Clear Calc 57.94, Est GFR (MDRD) Af Amer 90, Est GFR (MDRD) Non-Af 75, BUN/Creatinine Ratio 15.5, Glucose 87, Calcium 8.5, Total Bilirubin 0.70, AST 28, ALT 48, Alkaline Phosphatase 92, Total Protein 6.1 L, Albumin 2.4 L, Globulin 3.7, Albumin/Globulin Ratio 0.6 L Radiography Diagnostic Testing: Radiology Impression Gallbladder Ultrasound 12/02/22 16:46 IMPRESSION: Thick-walled gallbladder containing stones with pericholecystic edema suspicious for chronic cholecystitis and superimposed acute cholecystitis. HIDA scan would be useful for further evaluation if clinically warranted Common bile duct is upper normal in size and there is no definitive evidence for intraductal stone Electronically Signed: Phani Salamanca MD at 17:54 EST , Physical Exam Const oriented x3 and no apparent distress Resp normal respiratory effort GI Palpation: tender RUQ Assessment & Plan Assessment/Plan (1) Acute cholecystitis: PLAN: Patient has acute cholecystitis but I believe it is too risky to perform surgery at this time as the symptoms of been going on for an entire week. I recommend percutaneous cholecystostomy tube and antibiotics. I will start a diet after the cholecystostomy tube was placed. Patient will then be discharged home today or tomorrow with the tube in place and will follow-up in my office to schedule elective cholecystectomy in the future once the gallbladder and colon have calm down. Luis Antonio Daly MD Pager: [facility] [address] [place] [address], [address] [place] [address] Office:
--- NOTE | 2022-12-03 12:50 | CASEMGMT ---
RN?CM?BULK FOLDER?CM?to room to meet with patient for initial transition planning/care coordination?assessment.?RN?CM?introduced self and role at [facility].? Pt voices understanding and consents to?assessment?at this time.? Pt resting in bed in no distress at this time.? Pt is A/O at this time and answers all questions appropriately.?? Care providers, pharmacy, and demographics verified/updated at this time. PCP: Dr Moody Specialists: denies Preferred [facility]acy[facility] Insurance: [employer] [facility] Prescription Benefit:?Yes Living Will/HPOA:?Pt thinks he has done a LW, but he is not sure. His dtr, Seerne, is HCPOA. LNOK: Dtr/POASerene Living Arrangements: Lives alone in mobile home w/3 steps to enter. Indep w/ADL's and IADL's. Transportation:?Pt states drives self and states no transportation concerns at this time.? DME: ? Denies using any DME and denies needs.? HHC/SNF: No hx of either. No needs identified. Pt wishes to return home and states has no concerns with going home at time of discharge.? ?CM?to follow for any discharge planning/needs.? Pt voices no concerns/needs at this time.? Advised pt to ask for?CM?if any questions/concerns/needs arise.? Voices understanding. PLAN:??Home Lucia PRATTN?RN?CM
--- NOTE | 2022-12-03 13:30 | CT_ITS ---
PROCEDURE: CT DIRECTED PERCUTANEOUS CHOLECYSTOSTOMY. DATE OF EXAMINATION: December 03, 2022. INDICATION: Male, 77 years old. Acute cholecystitis. PHYSICIAN: Ludwin Barragan M.D. CONSENT: Written informed consent was obtained having explained the risks, benefits and alternatives in detail with the patient who accepted the risks and agreed to proceed. Laboratory review and clinical assessment was performed. CONSCIOUS SEDATION PROTOCOL: The Drugs used were: 2 mg Versed, IV., and 50 mcg Fentanyl, IV. The sedation time was: 22 minutes. Conscious sedation was started at the 1:53 PM and terminated at 2:15 PM. The conscious sedation protocol was independently monitored. RADIATION DOSAGE (If Supplied By Facility): CTDIvol = ( 27.5 ) mGy, DLP = ( 1470.1 ) mGycm. Individualized dose optimization techniques were utilized. TECHNIQUE: CT sections were made through the abdomen and pelvis revealing acute cholecystitis.. The skin surface was prepped and draped in a sterile fashion. Puncture of this collection was performed initially with a 5 Botswanan catheter and fluid was aspirated. 8 Botswanan drainage catheter was then inserted into the collection and formed into position. Additional fluid was aspirated for a total of approximately 60 cc of cloudy fluid. The catheter was sutured into position to allow for continued drainage. Followup CT sections reveals good position of the catheter. CT/CT Guidance Abscess Drg w/Cath IMPRESSION: 1. CT directed percutaneous cholecystostomy using CT image guidance and image documentation as described. 2. Conscious Sedation protocol utilized with independent monitoring Electronically Signed: Ludwin Barragan MD at 14:44 EST ,
[2022-12-03] MEDS: Midazolam 2 MG/2 ML Syringe IV (13:53)
[2022-12-03] MEDS: fentaNYL 100 MCG/2 ML Ampul IV (13:54)
[2022-12-03] MEDS: Lidocaine 2% (20 ml mdv) 20 ML Vial INFILT (13:55)
[2022-12-03] MEDS: 0.9% Saline Lock 10 ML Syringe IV (13:56)
--- NOTE | 2022-12-03 15:17 | CASEMGMT ---
Social Work? SW in to pt room to verify advance directives. Pt confirmed has AD and named Serene Palacio, Daughter, as agent. SW made pt aware documents are not on file and if pt would like to bring these documents in the documents can be dropped off at the Medical Records department. Pt voiced understanding.?? ANNA Corona?
[2022-12-04 02:15] VITALS: BP 106/64; PULSE 60; RESP 16; TEMP 36.6; O2SAT 97
[2022-12-04 08:22] VITALS: BP 138/82; PULSE 83; RESP 18; TEMP 36.6; O2SAT 96
[2022-12-04] MEDS: Losartan Potassium 50 MG Tablet PO (08:31)
[2022-12-04] MEDS: Pantoprazole Sodium 40 MG Tablet PO (08:32)
[2022-12-04] MEDS: hydroCHLOROthiazide 12.5mg 12.5 MG PO (08:32)
--- NOTE | 2022-12-04 09:37 | DS.PCM_ITS ---
Providers Date of Admission: 12/02/22 Primary Care Physician: Dr. Brad Moody MD Reason For Visit: ACUTE CHOLECYSTITIS Diagnosis Discharge Diagnosis (1) Acute cholecystitis: Status: Acute Code(s): K81.0 - Acute cholecystitis Plan: Patient has acute cholecystitis but I believe it is too risky to perform surgery at this time as the symptoms of been going on for an entire week. I recommend percutaneous cholecystostomy tube and antibiotics. I will start a diet after the cholecystostomy tube was placed. Patient will then be discharged home today or tomorrow with the tube in place and will follow-up in my office to schedule elective cholecystectomy in the future once the gallbladder and colon have calm down. Luis Antonio Daly MD Pager: [facility] [address] [place] [address] [address] [place] [phone] Office: Medications at Discharge Home Medications hydrochlorothiazide 12.5 mg tablet 12.5 tab PO DAILY 04/09/22 losartan 50 mg tablet 50 mg PO DAILY 04/09/22 omeprazole 40 mg capsule,delayed release 40 mg PO DAILY 04/09/22 amoxicillin 500 mg-potassium clavulanate 125 mg tablet (Augmentin) 1 tab PO BID #20 tabs 12/04/22 Hospital Course Summary of Care Provided Hospital Course: Patient was admitted with acute cholecystitis but it had been going on for over 6 days before his admission. Patient was admitted and the following day he had a cholecystostomy tube placed. He was then advanced on his diet. This morning he is feeling well with pain in the right upper quadrant but no other pain he tolerated regular diet with no nausea or vomiting. He was discharged home with cholecystostomy tube placed and will follow-up with me to discuss elective cholecystectomy once inflammation has decreased. Physical Exam Const oriented x3 and no apparent distress Resp normal respiratory effort GI soft to palpation Inspection: Negative for abdominal distention Palpation: tender RUQ Weight / BMI Weight Weight: 222 lb 6.4 oz Body Mass Index (BMI) 34.8 ABG / Lab / Microbiology Data Result Diagrams: 12/03/22 06:10 12/03/22 06:10 Radiography Diagnostic Testing: Radiology Impression Abscess Drainage CT 12/03/22 13:30 IMPRESSION: 1. CT directed percutaneous cholecystostomy using CT image guidance and image documentation as described. 2. Conscious Sedation protocol utilized with independent monitoring Electronically Signed: Ludwin Barragan MD at 14:44 EST , D/C Instructions Discharge Diet: No restrictions Discharge Activity: Return to Normal Activity, May Drive and May Shower Weight Bearing Status: Weight bearing as tolerated Call your doctor if your incision/area has: Continuous Slow Oozing, Increased Pain/ Swelling and Increased Redness Call your doctor if you observe: Fever of 101 or Higher Drain: Suction Please Follow Up With: Luis Antonio Daly MD When: Please call to schedule 1 week follow up appointment. [phone] Meaningful Use Info Meaningful Use Diagnoses (Choose all that apply): None applicable Discharge Plan Admission Admit Date/Time: 12/02/22 17:22 Attending Provider: Luis Antonio Daly Primary Care Provider: Brad Moody Chi Instructions Patient Instructions: Lamberto Roger Drain Tube Dc, RAD RN Procedural Sedation Discharge Orders/Prescriptions Prescriptions: New amoxicillin-pot clavulanate [Augmentin] 500-125 mg tablet 1 tab PO BID Qty: 20 0RF Continued losartan 50 mg tablet 50 mg PO DAILY omeprazole 40 mg capsule,delayed release(DR/EC) 40 mg PO DAILY Label Comments: TAKE 1 CAPSULE BY MOUTH ONCE DAILY FOR 90 DAYS hydrochlorothiazide 12.5 mg tablet 12.5 tab PO DAILY Referrals / Follow Up: Brad Moody Chi, MD [Primary Care Provider] - Disposition Disposition (needs filled in before D/C Order can be placed): Home, Self Care
== END 2022-12-04 11:12 | disposition home or self-care (01) | DRG 446 ==
LOC: ED 17:09 → MS3 17:37
PROVIDERS: Admitting Provider Surgery; Emergency Provider Emergency Medicine; PCP Family Medicine Geriatric Medicine; Visit Provider Surgery
DX: K81.0 Acute cholecystitis (principal); E78.00 Pure hypercholesterolemia, unspecified; K82.8 Other specified diseases of gallbladder; I10 Essential (primary) hypertension; K21.9 Gastro-esophageal reflux disease without esophagitis; F17.290 Nicotine dependence, other tobacco product, uncomplicated; Z85.51 Personal history of malignant neoplasm of bladder
CPT/HCPCS: 36415; 74177; 75989; 76705; 80053; 82150; 83690; 85025; 85610; 85730; 87070; 87075; 87077; 87086; 87088; 87186; 87205; 99156; 99283; J7030; J7050; Q9967; A4216

== ENCOUNTER → 2022-12-02 | Outpatient (CLI) | payer MEDICARE, SELFPAY ==
[2022-12-02 13:13] LABS: Absolute Lymphocyte Count 1.82 X10^3/uL (0.83-4.51); Absolute Neutrophil Count 5.9 X10^3/uL (2.0-7.7); Basophil# 0.04 X10^3/uL; Basophil% 0.5 % (0-1); Eosinophil# 0.09 X10^3/uL; Hemoglobin 15.2 g/dL (13.0-16.5); Lymphocyte # 1.82 X10^3/ul (0.83-4.51); Lymphocyte % 20.5 % (19-41); Mean Corpuscular Hgb 29.7 pg (27.0-32.0); Mean Platelet Vol. 9.2 fl (6.2-12.0); Monocyte# 0.95 X10^3/uL; Monocyte% 10.7 % (0-10); NRBC Flagged by Analyzer 0 % (0-5); Neutrophil # 5.87 X10^3/uL (2.7-7.7); Neutrophil % 66.3 % (47-70); Platelet Count 282 K/mm3 (150-450); RBC Distribution Width SD 46.7 fl (35.1-43.9); Red Blood Count 5.11 M/mm3 (4.6-6.2); White Blood Count 8.9 K/mm3 (4.4-11.0)
[2022-12-02 13:36] LABS: ALB/GLOB Ratio 0.6 RATIO (0.9-2.4); AST(SGOT) 44 U/L (15-37); Alanine Aminotransfer ALT/SGPT 67 U/L (16-61); Albumin, Serum 2.7 g/dL (3.2-5.0); Alkaline Phosphatase 123 U/L (45-117); Amylase 34 U/L (25-115); Anion Gap 7 (5-15); BUN 19 mg/dL (7-18); BUN/Creat Ratio 14.7 RATIO (10-20); Calcium,Total 9.1 mg/dL (8.5-10.1); Chloride 97 mmol/L (98-107); Creatinine, Serum 1.29 mg/dL (0.70-1.30); EST Glomerular Filtration Rate 58 mL/min (>60); Est Glom Filt Rate - Afr Amer 70 mL/min (>60); Globulin 4.4 g/dL (2.2-4.2); Glucose 104 mg/dL (74-106); Lipase 115 U/L (73-393); Potassium 3.4 mmol/L (3.5-5.1); Protein, Total 7.1 g/dL (6.4-8.2); Sodium Level 132 mmol/L (136-145)
--- NOTE | 2022-12-02 15:25 | CT_ITS ---
STUDY: CT ABDOMEN AND PELVIS WITH CONTRAST REASON FOR EXAM: Male, 77 years old. ABDOMINAL PAIN RADIATION DOSAGE (If Supplied By Facility): CTDIvol = ( 16.29 ) mGy, DLP = ( 1281.93 ) mGycm TECHNIQUE: Transaxial images were obtained from the dome of the diaphragm to the symphysis pubis without oral contrast. Oral and amp; IV Gastrografin and amp; 100mL Isovue-370 was administered. Sagittal and coronal images were reconstructed. Individualized dose optimization techniques were used for this CT. COMPARISON: None. FINDINGS: Mild bibasilar interstitial thickening.. The visualized portions of the heart are within normal limits. Nonspecific fatty infiltrated liver without mass or bile duct dilatation. Thick-walled gallbladder without calcified stones demonstrating pericholecystic edema suspicious for acute cholecystitis.. Normal spleen. Normal pancreas. Right adrenal is normal. 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 A tiny cyst in the left renal cortex which will not require additional imaging Normal visualized stomach. Normal small intestine. There is diffusely ahaustral appearance to the ascending and transverse colon which may be consistent with nonspecific inflammatory bowel disease. Minor diverticular changes of the colon without evidence for acute diverticulitis The appendix is visualized and appears normal. Atherosclerotic changes of the aorta without evidence for aneurysm. Normal inferior vena cava. Normal retroperitoneum. Mild nonspecific enlargement of prostate association with incompletely distended thick walled bladder. No discrete focal bladder wall mass although study limited without contrast Small bilateral fat-containing inguinal hernias. Lumbar spine demonstrates mild spondylosis. CT/Abdomen/Pelvis WITH Contrast IMPRESSION: Nonspecific fatty infiltrated liver. Thick-walled gallbladder with pericholecystic edema without definitive evidence for intraluminal stones possibly representing a calculus cholecystitis. Ultrasound would be helpful for further evaluation Other findings as above Electronically Signed: Phani Salamanca MD at 16:04 EST ,
== END | disposition home or self-care (01) ==
PROVIDERS: PCP Family Medicine Geriatric Medicine; Visit Provider Family Medicine Geriatric Medicine
DX: R10.9 Unspecified abdominal pain (principal); N39.0 Urinary tract infection, site not specified
CPT/HCPCS: 36415; 74177; 80053; 82150; 83690; 85025; 87086; Q9967; A4216

== ENCOUNTER 2022-12-25 16:30 | Observation (INO) | payer MEDICARE, SELFPAY ==
[2022-12-25] VITALS (22 sets, daily range): BP systolic 90–181; BP diastolic 63–101; PULSE 69–102; RESP 16–32; TEMP 36.5–36.8; O2SAT 87–100; BMI 34.2; BMI 35.1
--- NOTE | 2022-12-25 | GALL_PTH ---
PATIENT: DIANA TORRES LOC: MS3 U#:[id number] AGE/SX: 77/M ROOM: [id number] RE12/25/[address]: Dr. Luis Antonio Daly MD : [id number] BED: 1 DIS: 12/26/2022 SPEC #: [id number] RECD: 12/25/22 14:14 STATUS: JENNIFER HERNANDEZ #: [id number] KALEIGH: 12/25/22 00:[address]: Luis Antonio Daly DEPT: SURGICAL PATHOLOGY RECD BY: Taye Vaughn ENTERED: 12/26/22 10:11 SP TYPE: CARLOS ROSARIO DR: Dr. Brad Moody MD Tissues: Gallbladder, NOS Procedures: Surgery Specimen Level III HEADER OPERATION: Laparoscopic cholecystectomy PRE-OP DIAGNOSIS: Acute cholecystitis TISSUE SUBMITTED: Gallbladder MICROSCOPIC DIAGNOSIS Gallbladder, cholecystectomy: Acute and chronic cholecystitis. Focal fat necrosis. AM:sue 12/29/2022 MICROSCOPIC DESCRIPTION Slides are reviewed. GROSS DESCRIPTION Received is one container labeled with the patient's name and designated gallbladder. The specimen consists of a gallbladder measuring 8.0 cm in length and up to 3.5 cm in diameter. The external surface is pink-chun, smooth and glistening for the most part. Focally it is granular, hemorrhagic and contains cautery artifact. The lumen is markedly narrow and no bile is noted. No stones are identified in the container or in the gallbladder. The gallbladder wall shows an increased amount of subserosal fat and measures up to 1.5 cm in thickness (inclusive of fat). Steam Press Tender sections from the gallbladder and the cystic duct are submitted in two cassettes. / SJ:rg 12/26/2022 TC:3 CPT: 12970
--- NOTE | 2022-12-25 11:18 | HP.PCM_ITS ---
History and Physical Date of Admission: 12/25/22 Intake Vital Signs ? 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 No nausea or vomiting. Objective Details: Abdomen is soft and nontender with IRENE in place with bilious drainage Coding Level of Care Code Off vis,est,level 3 Diagnoses Acute cholecystitis? K81.0 [facility] Medical History BPH (benign prostatic hyperplasia) GERD (gastroesophageal reflux disease) Hepatomegaly High cholesterol History of bladder cancer Hx of gastroesophageal reflux (GERD) Hypertension Obesity Tobacco use Surgical History? H/O chest tube placement H/O hand surgery History of bladder surgery History of surgery of head History of tonsillectomy and adenoidectomy Family History? Brother Heart disease Hypertension CAD (coronary artery disease) Myocardial infarctionFather Heart disease Hypertension CAD (coronary artery disease) Myocardial infarctionMother Alzheimer disease Social History? household members:? none housing:? house number of children:? 1 current occupational status:? retired Smoking Status:? Current some day smoker tobacco type: cigars how long ago did patient quit smoking:? Quit 8 years during, started 16 w/ 1 pk/2.5 day until 10 cigar/d x 3 yrs. alcohol intake:? never substance use type:? does not use Assessment and Plan (No Qualifiers) Assessment and Plan (1) Acute cholecystitis: ?Status:?Acute ?Plan: Patient was in the hospital with acute cholecystitis and cholecystostomy tube was placed.? Patient is improving and is tolerating antibiotics well.? I will plan for laparoscopic cholecystectomy in about 2 weeks. I discussed the procedure in detail with the patient.? I discussed the risks, benefits, and alternatives of the procedure.? I discussed the risks including but not limited to bleeding, infection, injury to surrounding organs such as the liver, bile duct, bowels.? I did discuss the possibility of having to convert to an open procedure as well as the possibility that if any injuries occurred this may necessitate further surgery at a tertiary care center. Luis Antonio Daly MD Pager: [facility] [address] [place] [address], [address] [place] [address] Office: I have examined the patient and the H&P has been reviewed. There are no clinical changes since date of exam.
--- NOTE | 2022-12-25 11:20 | EKG12_ITS ---
Test Reason : PRE OP Blood Pressure : / mmHG Vent. Rate : 074 BPM Atrial Rate : 074 BPM P-R Int : 160 ms QRS Dur : 076 ms QT Int : 416 ms P-R-T Axes : 067 018 065 degrees QTc Int : 461 ms Sinus rhythm with marked sinus arrhythmia Nonspecific ST abnormality Abnormal ECG When compared with ECG of 09-APR-2022 07:22, No significant change was found Confirmed by YESENIA FONTANEZ, RODRIGO ([id number]), managing editor JOSÉ MIGUEL RICKS ([id number]) on 12/26/2022 1:24:01 PM Referred By: Luis Antonio Daly Confirmed By:RODRIGO PATTERSON MD
[2022-12-25] MEDS: Lactated Ringers 1,000 ML 15 ML IV ×2 (11:52→16:48)
--- NOTE | 2022-12-25 12:28 | RAD_ITS ---
STUDY: INTRAOPERATIVE CHOLANGIOGRAM. REASON FOR EXAM: Male, 77 years old. Laparoscopic cholecystectomy. FLUOROSCOPY TIME (if supplied): ( 28.6 seconds ) minutes/seconds. 7.86 mGy TECHNIQUE: Attempted intraoperative cholangiogram was performed. COMPARISON: None. FINDINGS: Attempted intraoperative cholangiogram. RAD/Cholangiogram/ O R,Initial IMPRESSION: Attempted intraoperative cholangiogram. Electronically Signed: Ludwin Barragan MD at 10:04 EDT ,
[2022-12-25] MEDS: Cefotetan 2 GM in 0.9% NS 100 ML IV (13:06)
--- NOTE | 2022-12-25 14:16 | PCM.OPRPT ---
Report of Operation Date of Procedure: 12/25/22 Pre-Operative Diagnosis: Acute on chronic cholecystitis Post-Operative Diagnosis: Same Surgery/Procedure Performed:: Laparoscopic cholecystectomy Specimen's removed: Gallbladder Description of Procedure: Patient was brought back to the operating room and general anesthesia was induced. The percutaneous cholecystostomy tube was then removed and then the abdomen was prepped and draped in usual sterile fashion. Incision was made superior to the umbilicus and deepened to the fascia which was incised and then a finger sweep was performed and a port was placed into the abdomen and the abdomen was insufflated 15 mmHg. Camera was placed into the abdomen and it was inspected. There was a lot of inflammation in the right upper quadrant. The tube tract was taken down using electrocautery and then the fat was retracted inferiorly. The gallbladder was grasped and elevated and was very inflamed. It was followed downward to the infundibulum. The cystic duct was identified and dissected free. Cholangiograms were attempted but there was no way to flush contrast down the cystic duct. The cystic duct was milked back but there is still no flushing of the duct and cholangiograms were unable to be performed. The midportion of the gallbladder was then dissected free from the gallbladder fossa and dissected inferiorly until the cystic duct was identified from that side. It appeared that the cystic duct only entering the gallbladder and did not enter the common duct and the common duct seem to be free of this area. The cystic artery was identified and clipped and divided. Next the cystic duct was clipped and divided. The gallbladder was then taken off the gallbladder fossa using letter cautery. Surgicel powder was placed over the gallbladder fossa to stop oozing. The area was irrigated and suctioned dry and it appeared to be hemostatic. Gallbladder was placed into a bag and removed. The abdomen was allowed to desufflate from air and the ports were removed. The midline fascia was closed with a [id number] 0 Vicryl suture. Subcutaneous tissue was irrigated and suctioned dry. Local was instilled in all the incisions. All the incisions were closed with interrupted 4-0 Monocryl suture and Steri-Strips and bandages were applied. Patient was taken to PACU in stable condition tolerated the procedure well. Admit VTE Documentation VTE Mechan Device Prophylaxis: SCD's
--- NOTE | 2022-12-25 14:19 | DCINST_ITS ---
Discharge Instructions Procedure Gallbladder Diet Discharge Diet: Light diet - advance as tolerated Activity Discharge Activity: May Not Drive (for 2-3 days or while taking narcotic pain medications.) and - (Do not drive, work heavy equipment or sign legal documents for 24 hours.) May shower in (days): 1 Lifting Restrictions: 20 lbs for 2 weeks Additional Activity Instructions:: Pain medication may cause nausea. You should typically eat light foods as you take your pain medications. Pain medication may also cause constipation. If this is a problem for you, please discuss with your doctor. Dressing / Incision Call your doctor if your incision/area has: Continuous Slow Oozing, Sudden Increased Bleeding, Increased Pain/ Swelling, Increased Redness and Foul Smelling Discharge Call your doctor if you observe: Fever of 101 or Higher Suture Line Care: Avoid Pulling/Pushing and Avoid Pinching/Bending Remove Dressing in: 2 days Additional Dressing/Incision Instructions:: Leave operative bandaids on for 2 days. When you remove dressing, leave Steri-Strips on until your follow-up appointment, or until the Steri-Strips fall off on their own. Follow Up Care Please Follow Up With: Luis Antonio Daly MD When: Please call to schedule 2 week follow up appointment. [phone] Test Results: Test results from this visit will be discussed in further detail at your follow- up appointment, if applicable. Discharge Plan Admission Attending Provider: Luis Antonio Daly Primary Care Provider: Brad Moody Chi Discharge Orders/Prescriptions Prescriptions: New oxycodone 5 mg tablet 5 - 10 mg PO Q6H PRN (Reason: pain) 5 Days Qty: 20 0RF No Action losartan 50 mg tablet 50 mg PO DAILY omeprazole 40 mg capsule,delayed release(DR/EC) 40 mg PO DAILY Label Comments: TAKE 1 CAPSULE BY MOUTH ONCE DAILY FOR 90 DAYS hydrochlorothiazide 12.5 mg tablet 12.5 tab PO DAILY Referrals / Follow Up: Brad Moody Chi, MD [Primary Care Provider] - Disposition Disposition (needs filled in before D/C Order can be placed): Home, Self Care
--- NOTE | 2022-12-25 14:44 | EKG12_ITS ---
Test Reason : RYTHMN CHANGE Blood Pressure : / mmHG Vent. Rate : 087 BPM Atrial Rate : 087 BPM P-R Int : 148 ms QRS Dur : 078 ms QT Int : 384 ms P-R-T Axes : 073 034 094 degrees QTc Int : 462 ms Sinus rhythm with frequent Premature ventricular complexes Otherwise normal ECG When compared with ECG of 25-DEC-2022 11:20, MANUAL COMPARISON REQUIRED, DATA IS UNCONFIRMED Confirmed by YESENIA FONTANEZ, RODRIGO ([id number]), deputy editor in chief JOSÉ MIGUEL RICKS ([id number]) on 12/26/2022 1:26:48 PM Referred By: Luis Antonio Daly Confirmed By:RODRIGO PATTERSON MD
--- NOTE | 2022-12-25 14:59 | SUR.PHASEI ---
1430 Pt lips dusky / pointing to chest; stridorous resp; abd breathing; poor air exchange to bhupendra chest. Anesthesia alerted. Bag Mask Ventilation initiated. HR 118; 200cc Sudamadex given by anesthesia at 1436. HR 104. / 1440 pt speaking in full sentence, RR 32, POx 99. / 1442 follows commands / 1449 RR 32, 99% on NRmask / CPS present / 1455 50% 12L O2. / Stefani Khalil CRNA, Fei Coon RN, Dimitry RN, Diana Jones RN. Dr Braswell visit pt at 1450 / 1505 Dr David returns to bedside. RR 40, SPO2 98%, HR 87.
[2022-12-25] MEDS: 0.9% Normal Saline 1,000 ML 60 ML IV (17:31)
[2022-12-26 00:14] VITALS: BP 143/89; BP 145/89; PULSE 95; RESP 16; TEMP 36.8; O2SAT 95
[2022-12-26] MEDS: 0.9% Normal Saline 1,000 ML 60 ML IV (03:08)
[2022-12-26 03:44] VITALS: BP 136/78; PULSE 77; RESP 17; TEMP 36.6; O2SAT 94
--- NOTE | 2022-12-26 03:50 | NURSING ---
pt po 95% on ra. Pt placed on ra. Cont po on
[2022-12-26 04:38] VITALS: BP 138/71; PULSE 82; RESP 18; TEMP 36.7; O2SAT 92
[2022-12-26 07:24] LABS: ALB/GLOB Ratio 0.8 RATIO (0.9-2.4); AST(SGOT) 38 U/L (15-37); Alanine Aminotransfer ALT/SGPT 50 U/L (16-61); Albumin, Serum 2.8 g/dL (3.2-5.0); Alkaline Phosphatase 74 U/L (45-117); Anion Gap 4 (5-15); BUN 16 mg/dL (7-18); BUN/Creat Ratio 13.6 RATIO (10-20); Calcium,Total 8.7 mg/dL (8.5-10.1); Chloride 99 mmol/L (98-107); Creatinine, Serum 1.18 mg/dL (0.70-1.30); EST Glomerular Filtration Rate 64 mL/min (>60); Est Glom Filt Rate - Afr Amer 77 mL/min (>60); Estimated Creatinine Clearance 50.57 ml/min; Globulin 3.4 g/dL (2.2-4.2); Glucose 143 mg/dL (74-106); Potassium 4.2 mmol/L (3.5-5.1); Protein, Total 6.2 g/dL (6.4-8.2); Sodium Level 133 mmol/L (136-145)
[2022-12-26 08:38] VITALS: BP 116/71; PULSE 71; RESP 18; TEMP 36.9; O2SAT 95
[2022-12-26] MEDS: Pantoprazole Sodium 40 MG Tablet PO (08:39)
[2022-12-26] MEDS: Losartan Potassium 50 MG Tablet PO (08:39)
[2022-12-26] MEDS: hydroCHLOROthiazide 12.5mg 12.5 MG PO (08:39)
[2022-12-26] MEDS: oxyCODONE 5 MG Tablet PO (09:49)
--- NOTE | 2022-12-26 10:16 | PN.SURG_ITS ---
Subjective Subjective Patient reports that he is tolerating clear liquids with no nausea or vomiting. He has minimal abdominal pain. Objective Data Objective Data Vital Signs: Vital Signs Temp Pulse Resp BP Pulse Ox O2 Del Method O2 Flow Rate 98.5 F 71 18 116/71 95 Room Air 2 12/26/22 08:38 12/26/22 08:38 12/26/22 08:38 12/26/22 08:38 12/26/22 08:38 12/26/22 08:52 12/26/22 03:44 FiO2 40 12/25/22 16:00 Oxygen Flow Rate (L/min) 2 Oxygen Delivery Method Room Air Weight: 224 lb 1 oz Body Mass Index (BMI) 35.1 Intake & Output: Intake and Output for Last 24 Hours 12/24/22 12/25/22 12/26/22 23:59 23:59 23:59 Intake Total 1120 / 1120 1917 / 1917 Output Total 400 / 400 Balance 1120 / 1120 1517 / 1517 Lab / Micro Data Result Diagrams: 12/26/22 06:35 Labs: Laboratory Results - last 24 hr 12/26/22 06:35: Sodium 133 L, Potassium 4.2, Chloride 99, Carbon Dioxide 30.0, Anion Gap 4 L, BUN 16, Creatinine 1.18, Estim Creat Clear Calc 50.57, Est GFR (MDRD) Af Amer 77, Est GFR (MDRD) Non-Af 64, BUN/Creatinine Ratio 13.6, Glucose 143 H, Calcium 8.7, Total Bilirubin 0.50, AST 38 H, ALT 50, Alkaline Phosphatase 74, Total Protein 6.2 L, Albumin 2.8 L, Globulin 3.4, Albumin/Globulin Ratio 0.8 L Radiography Diagnostic Testing: Radiology Impression Cholangiogram 12/25/22 12:28 IMPRESSION: Attempted intraoperative cholangiogram. Electronically Signed: Ludwin Barragan MD at 10:04 EDT , Physical Exam Const oriented x3 and no apparent distress Resp normal respiratory effort GI soft to palpation and non-tender Assessment & Plan Assessment/Plan (1) Acute cholecystitis: PLAN: Patient had laparoscopic cholecystectomy yesterday. It was difficult due to the cholecystostomy tube and amount of inflammation. Following surgery the patient had laryngeal spasm and then he was hypoxic and was unable to be weaned off of nasal cannula so he was admitted. With adequate pain control he is able to take deeper breaths and he has been transitioned to room air. If he tolerates regular diet today I will discharge him home. Luis Antonio Daly MD Pager: [facility] [address] [place] [address] [address] [place] [address] Office: (2) Respiratory failure:
--- NOTE | 2022-12-26 11:16 | CASEMGMT ---
LEI CM into pt room, pt sitting up in chair. Pt denies any homegoing needs. Pt states he is I at home.
--- NOTE | 2022-12-26 11:38 | PHA.DC.MC ---
Pharmacy Service has performed discharge medication reconciliation and counseling for this patient. The patient was counseled on the following discharge medications and changes in medications for homegoing were reviewed. 1. OXYCODONE The Reason for Use, instructions for use, and potential side effects were reviewed for all new medications. The patient's questions regarding all of their medications were answered. The patient was able to verbally demonstrate an understanding of their discharge medications. Home Medications hydrochlorothiazide 12.5 mg tablet 12.5 tab PO DAILY 04/09/22 losartan 50 mg tablet 50 mg PO DAILY 04/09/22 omeprazole 40 mg capsule,delayed release 40 mg PO DAILY 04/09/22 oxycodone 5 mg tablet 5 - 10 mg PO Q6H PRN pain 5 days #20 tabs 12/25/22 The patient's discharge medication list was reviewed for discrepancies and discrepancies were resolved.
[2022-12-26 13:53] VITALS: BP 105/61; PULSE 85; RESP 18; TEMP 36.8; O2SAT 95
== END 2022-12-26 14:00 | disposition home or self-care (01) ==
LOC: MS3 12-26 03:19 → SDC 12-26 09:51 → MS3 12-26 09:51
PROVIDERS: Admitting Provider Surgery; PCP Family Medicine Geriatric Medicine; Referring Provider Surgery; Visit Provider Surgery
PROC: (CPT 47610; principal; 2022-12-25 12:20)
DX: K81.2 Acute cholecystitis with chronic cholecystitis (principal); F17.290 Nicotine dependence, other tobacco product, uncomplicated; K21.9 Gastro-esophageal reflux disease without esophagitis; N40.0 Benign prostatic hyperplasia without lower urinary tract symptoms; E78.00 Pure hypercholesterolemia, unspecified; I10 Essential (primary) hypertension; E66.9 Obesity, unspecified; Z79.899 Other long term (current) drug therapy; Z68.35 Body mass index [BMI] 35.0-35.9, adult; R09.02 Hypoxemia; J38.5 Laryngeal spasm
CPT/HCPCS: 47562; 36415; 74300; 76000; 80048; 80053; 88304; 93005; 94668; 99221; 99252; 99406; J7030; J7120; G0378; G0463; J2405

== ENCOUNTER → 2023-01-01 | Outpatient (CLI) | payer MEDICARE, SELFPAY ==
[2023-01-01 12:13] LABS: Absolute Lymphocyte Count 1.69 X10^3/uL (0.83-4.51); Basophil# 0.05 X10^3/uL; Basophil% 0.5 % (0-1); Eosinophil# 0.29 X10^3/uL; Eosinophils% 2.9 % (0-5); Hematocrit 41.5 % (40-54); Hemoglobin 13.2 g/dL (13.0-16.5); Lymphocyte # 1.69 X10^3/ul (0.83-4.51); Lymphocyte % 16.9 % (19-41); Mean Corp Hgb Conc 31.8 g/dL (32-36); Mean Corpuscular Hgb 28.6 pg (27.0-32.0); Mean Platelet Vol. 9.6 fl (6.2-12.0); Monocyte# 0.83 X10^3/uL; Monocyte% 8.3 % (0-10); NRBC Flagged by Analyzer 0 % (0-5); Neutrophil # 6.99 X10^3/uL (2.7-7.7); Platelet Count 326 K/mm3 (150-450); RBC Distribution Width SD 46.2 fl (35.1-43.9); Red Blood Count 4.61 M/mm3 (4.6-6.2)
[2023-01-01 12:30] LABS: Vitamin D,25 Hydroxy 24.3 ng/mL
[2023-01-01 12:39] LABS: ALB/GLOB Ratio 0.6 RATIO (0.9-2.4); AST(SGOT) 26 U/L (15-37); Alanine Aminotransfer ALT/SGPT 39 U/L (16-61); Albumin, Serum 2.5 g/dL (3.2-5.0); Alkaline Phosphatase 102 U/L (45-117); Anion Gap 7 (5-15); BUN 19 mg/dL (7-18); BUN/Creat Ratio 14.8 RATIO (10-20); Calcium,Total 8.6 mg/dL (8.5-10.1); Chloride 98 mmol/L (98-107); Cholesterol 119 mg/dL (200); Creatinine, Serum 1.28 mg/dL (0.70-1.30); EST Glomerular Filtration Rate 58 mL/min (>60); Est Glom Filt Rate - Afr Amer 70 mL/min (>60); Globulin 4.1 g/dL (2.2-4.2); Glucose 112 mg/dL (74-106); High Density Lipoprotein 16 mg/dL; Protein, Total 6.6 g/dL (6.4-8.2); Sodium Level 133 mmol/L (136-145); Thyroid Stim Hormone (TSH) 2.41 uIU/mL (0.358-3.74); Triglycerides 128 mg/dL; Very Low Density Lipoprotein 26 mg/dL (5-40)
== END | disposition home or self-care (01) ==
LOC: POLAB3 09:37
PROVIDERS: PCP Family Medicine Geriatric Medicine; Visit Provider Family Medicine Geriatric Medicine
DX: E55.9 Vitamin D deficiency, unspecified (principal); R53.83 Other fatigue; F52.8 Other sexual dysfunction not due to a substance or known physiological condition; E78.5 Hyperlipidemia, unspecified
CPT/HCPCS: 36415; 80053; 80061; 82306; 84403; 84443; 85025

== ENCOUNTER → 2023-01-12 | Outpatient (CLI) | payer MEDICARE, SELFPAY ==
[2023-01-12 17:51] LABS: Absolute Neutrophil Count 8.2 X10^3/uL (2.0-7.7); Basophil# 0.04 X10^3/uL; Basophil% 0.4 % (0-1); Eosinophil# 0.07 X10^3/uL; Eosinophils% 0.6 % (0-5); Hematocrit 41.6 % (40-54); Hemoglobin 13.4 g/dL (13.0-16.5); Lymphocyte % 16.9 % (19-41); Mean Corp Hgb Conc 32.2 g/dL (32-36); Mean Corpuscular Hgb 28.6 pg (27.0-32.0); Mean Corpuscular Volume 88.7 fL (80-94); Monocyte# 1.05 X10^3/uL; Monocyte% 9.3 % (0-10); NRBC Flagged by Analyzer 0 % (0-5); Neutrophil # 8.15 X10^3/uL (2.7-7.7); Neutrophil % 72.4 % (47-70); Platelet Count 379 K/mm3 (150-450); RBC Distribution Width CV 13.8 % (11.6-14.6); RBC Distribution Width SD 44.8 fl (35.1-43.9); Red Blood Count 4.69 M/mm3 (4.6-6.2); White Blood Count 11.3 K/mm3 (4.4-11.0)
[2023-01-12 18:35] LABS: ALB/GLOB Ratio 0.7 RATIO (0.9-2.4); AST(SGOT) 23 U/L (15-37); Alanine Aminotransfer ALT/SGPT 23 U/L (16-61); Albumin, Serum 2.8 g/dL (3.2-5.0); Alkaline Phosphatase 98 U/L (45-117); Amylase 39 U/L (25-115); Anion Gap 6 (5-15); BUN 13 mg/dL (7-18); BUN/Creat Ratio 10.2 RATIO (10-20); Calcium,Total 8.7 mg/dL (8.5-10.1); Chloride 98 mmol/L (98-107); Creatinine, Serum 1.27 mg/dL (0.70-1.30); EST Glomerular Filtration Rate 59 mL/min (>60); Est Glom Filt Rate - Afr Amer 71 mL/min (>60); Globulin 4.3 g/dL (2.2-4.2); Glucose 96 mg/dL (74-106); Lipase 27 U/L (13-75); Potassium 3.4 mmol/L (3.5-5.1); Protein, Total 7.1 g/dL (6.4-8.2); Sodium Level 131 mmol/L (136-145)
== END | disposition home or self-care (01) ==
LOC: POLAB3 16:35
PROVIDERS: PCP Family Medicine Geriatric Medicine; Visit Provider Family Medicine Geriatric Medicine
DX: R10.9 Unspecified abdominal pain (principal)
CPT/HCPCS: 36415; 80053; 82150; 83690; 85025

== ENCOUNTER → 2023-01-13 | Outpatient (CLI) | payer MEDICARE, SELFPAY ==
--- NOTE | 2023-01-13 07:19 | US_ITS ---
STUDY: ABDOMINAL ULTRASOUND - RIGHT UPPER QUADRANT REASON FOR VISIT: Male, 77 years old ABD PAIN S/P RAFA IN NOVEMBER -- CT TO FOLLOW TECHNIQUE: Ultrasound evaluation of the right upper quadrant was performed with real-time and static davis-scale imaging. TECHNICAL QUALITY: Adequate. COMPARISON: None. FINDINGS: Liver: The liver measures 17.1 cm. There is increased echogenicity consistent with fatty infiltration. The bile ducts are within normal limits. There is hepatic color flow. The direction of portal flow is hepatopetal. There is no demonstrated mass lesion. Gallbladder: The patient is status post cholecystectomy. There is a 7.7 cm x 6.6 x 6.5 cm complex fluid collection in the gallbladder fossa. This most likely represents a postoperative seroma. Common Bile Duct (C.B.D.): The common bile duct measures 5 mm. Pancreas: There is nonvisualization of the pancreas due to overlying bowel gas. Right Kidney: Normal size of the right kidney. The right kidney measures 12.1 cm x 6.2 cm x 6 cm. Normal renal cortex. The right cortex measures 2.0 cm. There is no demonstrated renal mass or cyst. There is no right hydronephrosis. US/Abdomen Limited IMPRESSION: Status post cholecystectomy. 7.7 cm x 6.6 cm x 6.5 cm complex fluid collection in the bladder fossa. This most likely represents a postoperative seroma. Electronically Signed: Ludwin Barragan MD at 14:04 EDT ,
--- NOTE | 2023-01-13 10:07 | CT_ITS ---
STUDY: CT ABDOMEN AND PELVIS WITH CONTRAST REASON FOR EXAM: Male, 77 years old. RUQ PAIN. The patient is status post cholecystectomy. RADIATION DOSAGE (If Supplied By Facility): CTDIvol = ( 17.35 ) mGy, DLP = ( 1255.00 ) mGycm TECHNIQUE: Transaxial images were obtained from the dome of the diaphragm to the symphysis pubis without oral contrast. Oral and amp; IV Gastrografin and amp; 100mL Isovue-300 was administered. Sagittal and coronal images were reconstructed. Individualized dose optimization techniques were used for this CT. COMPARISON: None. FINDINGS: Mild degree of increased markings at the lung bases likely more prominent on the right side suggestive of a right basilar atelectasis. Coronary artery calcification. There is decreased attenuation of the liver consistent with steatosis. The patient is status post cholecystectomy. In the gallbladder fossa, there is a 8.6 cm x 7 cm x 6 cm fluid collection with a thin rim. Increased markings are seen in the surrounding peritoneal fat. Tiny air bubbles are seen in the surrounding peritoneal fat in the gallbladder fossa most likely secondary to recent cholecystectomy. Normal spleen. Normal pancreas. 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 Normal right kidney. Normal left kidney. There is a small hiatal hernia. Normal small intestine. Fecal material is seen in the rectum. Asymmetrical thickening of the right lateral wall of the rectum. The appendix is visualized and appears normal. There is scattered atherosclerotic calcification of the abdominal aorta, without a demonstrated aneurysm. Mild degree of mural thrombus is seen within the abdominal aorta. Normal inferior vena cava. Normal retroperitoneum. Normal urinary bladder. There is evidence of a right sided spigelian hernia containing fat. There are diffuse degenerative changes of the visualized lumbar spine. CT/Abdomen/Pelvis WITH Contrast IMPRESSION: 8.6 cm x 7 cm x 6 mL fluid collection in the region of the gallbladder fossa. This most likely represents a postoperative seroma. The patient is status post cholecystectomy. The remainder of the examination is unchanged. Electronically Signed: Ludwin Barragan MD at 10:31 EDT ,
== END | disposition home or self-care (01) ==
PROVIDERS: PCP Family Medicine Geriatric Medicine; Visit Provider Family Medicine Geriatric Medicine
DX: R10.9 Unspecified abdominal pain (principal)
CPT/HCPCS: 74177; 76705; Q9967

== ENCOUNTER → 2023-01-13 | Outpatient (CLI) | payer MEDICARE, SELFPAY | END | disposition home or self-care (01) | LOC: POLAB3 11:17 | PROVIDERS: PCP Family Medicine Geriatric Medicine; Visit Provider Family Medicine Geriatric Medicine | DX: K52.9 Noninfective gastroenteritis and colitis, unspecified (principal) ==

== ENCOUNTER 2023-01-15 08:45 | Outpatient (CLI) | payer MEDICARE, SELFPAY ==
[2023-01-14 11:14] LABS: Absolute Lymphocyte Count 1.46 X10^3/uL (0.83-4.51); Absolute Neutrophil Count 4.6 X10^3/uL (2.0-7.7); Basophil# 0.06 X10^3/uL; Basophil% 0.9 % (0-1); Eosinophil# 0.08 X10^3/uL; Eosinophils% 1.1 % (0-5); Hematocrit 37.8 % (40-54); Hemoglobin 12.3 g/dL (13.0-16.5); Lymphocyte # 1.46 X10^3/ul (0.83-4.51); Lymphocyte % 20.8 % (19-41); Mean Corp Hgb Conc 32.5 g/dL (32-36); Mean Corpuscular Hgb 28.4 pg (27.0-32.0); Mean Corpuscular Volume 87.3 fL (80-94); Mean Platelet Vol. 8.9 fl (6.2-12.0); Monocyte# 0.79 X10^3/uL; Monocyte% 11.2 % (0-10); NRBC Flagged by Analyzer 0 % (0-5); Neutrophil # 4.61 X10^3/uL (2.7-7.7); Neutrophil % 65.6 % (47-70); Platelet Count 362 K/mm3 (150-450); RBC Distribution Width CV 13.7 % (11.6-14.6); RBC Distribution Width SD 44.3 fl (35.1-43.9); Red Blood Count 4.33 M/mm3 (4.6-6.2)
[2023-01-14 11:33] LABS: International Normalized Ratio 1.2; Prothrombin Time (Protime)PT. 14.5 SECONDS (11.7-14.9)
[2023-01-14 11:34] LABS: Partial Thromboplast Time 36.7 Seconds (24.1-36.2)
[2023-01-15] VITALS (9 sets, daily range): BP systolic 111–140; BP diastolic 57–82; PULSE 68–81; RESP 2–24; TEMP 36.3; O2SAT 95–100; BMI 32.5
--- NOTE | 2023-01-15 08:48 | CT_ITS ---
PROCEDURE: CT DIRECTED ABSCESS DRAINAGE, PERITONEAL DATE OF EXAMINATION: January 15, 2023. INDICATION: Male, 77 years old. Fluid collection in the right upper quadrant following cholecystectomy. PHYSICIAN: Ludwin Barragan M.D. CONSENT: Written informed consent was obtained having explained the risks, benefits and alternatives in detail with the patient who accepted the risks and agreed to proceed. Laboratory review and clinical assessment was performed. CONSCIOUS SEDATION PROTOCOL: The Drugs used were: 2 mg Versed, IV., and 50 mcg Fentanyl, IV. The sedation time was: 26 minutes. Conscious sedation was started at 10:12 AM and terminated at 1038 The conscious sedation protocol was independently monitored. RADIATION DOSAGE (If Supplied By Facility): CTDIvol = ( 22 ) mGy, DLP = ( 899.03 ) mGycm. Individualized dose optimization techniques were utilized. TECHNIQUE: CT sections were made through the abdomen and pelvis revealing an abscess in the region of the gallbladder fossa. The skin surface was prepped and draped in a sterile fashion. Puncture of this collection was performed initially with a 5 Qatari catheter and fluid was aspirated. 8 Qatari drainage catheter was then inserted into the collection and formed into position. Additional fluid was aspirated for a total of approximately 20 and 80 cc of cloudy purulent fluid. The catheter was sutured into position to allow for continued drainage. Followup CT sections reveals good position of the catheter. CT/CT Guidance Abscess Drg w/Cath IMPRESSION: 1. CT directed drainage of a fluid collection using CT image guidance and image documentation as described. 2. Conscious Sedation protocol utilized with independent monitoring Electronically Signed: Ludwin Barragan MD at 11:06 EDT ,
[2023-01-15] MEDS: Midazolam 2 MG/2 ML Syringe IV (10:12)
[2023-01-15] MEDS: fentaNYL 100 MCG/2 ML Ampul IV (10:12)
[2023-01-15] MEDS: Lidocaine 2% (20 ml mdv) 20 ML Vial INFILT (10:28)
== END 2023-01-15 23:59 | disposition home or self-care (01) ==
LOC: CT 08:47
PROVIDERS: PCP Family Medicine Geriatric Medicine; Referring Provider Surgery; Visit Provider Surgery
DX: K81.0 Acute cholecystitis (principal); K65.1 Peritoneal abscess; T88.8XXA Other specified complications of surgical and medical care, not elsewhere classified, initial encounter; Z87.09 Personal history of other diseases of the respiratory system; R10.9 Unspecified abdominal pain
CPT/HCPCS: 32551; 96375; 96365; 36415; 75989; 85025; 85610; 85730; 87070; 87075; 87077; 87186; 87205; 99156; J7050

== ENCOUNTER → 2023-01-19 | Outpatient (CLI) | payer MEDICARE, SELFPAY ==
--- NOTE | 2023-01-19 10:05 | NM_ITS ---
CLINICAL: 77-year-old male with history of recent cholecystectomy with postoperative pain and suspected bile leak. RADIONUCLIDE HEPATOBILIARY SCINTIGRAPHY COMPARISON: CT of the abdomen-pelvis report 01/08/2023 FINDINGS: Following the intravenous administration of 5.1 mCi of 99m Tc Mebrofenin, hepatobiliary images reveal: 1. Relatively prompt and homogeneous radiopharmaceutical concentration is noted by a normal sized liver. No parenchymal defects are identified. 2. Gallbladder activity is not identified during 60 minutes of sequential imaging commensurate with known history of prior cholecystectomy. 3. Small intestinal tract is observed at 19-20 minutes post radiopharmaceutical administration. 4. Washout of the radiopharmaceutical by the hepatic parenchyma appears qualitatively normal. 5. There is no evidence of a visualized bile leak identified during 60 minutes of sequential imaging. 6.Duodenal gastric reflux is demonstrated at 51 minutes post tracer injection. NM/Hepatobilliary Imaging IMPRESSION: 1. Nonvisualization of the gallbladder is consistent with prior cholecystectomy. 2. There is no scintigraphic evidence of bile leak. 3. Mild duodenal gastric reflux is identified as described above. Electronically Signed: Maikel Torres, at 11:32 EDT ,
== END | disposition home or self-care (01) ==
LOC: NM 10:03
PROVIDERS: PCP Family Medicine Geriatric Medicine; Referring Provider Surgery; Visit Provider Surgery
DX: K83.9 Disease of biliary tract, unspecified (principal)
CPT/HCPCS: 78226; A9537

== ENCOUNTER → 2023-04-29 | Outpatient (CLI) | payer MEDICARE, SELFPAY ==
--- NOTE | 2023-04-29 | IMM_PTH ---
PATIENT: DIANA TORRES LOC: LAB U#:[id number] AGE/SX: 77/M ROOM: RE04/29/[address]: Dr. Garland Thomas MD : 1945 BED: DIS: 04/29/2023 SPEC #: [id number] RECD: 04/30/23 14:37 STATUS: JENNIFER REQ #: [id number] KALEIGH: 04/29/23 00:[address]: Garland Thomas DEPT: IMMUNOHISTOCHEMISTRY RECD BY: Regine Jones ENTERED: 04/30/23 14:39 SP TYPE: IMMUNO OTHR DR: Dr. Brad Moody MD Tissues: Parotid gland, NOS Procedures: BCL-2 (add) CK20 (add) CK7 (add) CK8 (add) KI-67 (add) P53 (add) Vimentin (add) 34BE12 (add) Pankeratin (initial) GATA3 (add) NSE (add) S-100 (add) PHYSICIAN & INSTITUTION [address] [address] SPECIMEN INFORMATION: Tissue Source: Left parotid mass Clinical Info: Left parotid mass Specimen Number: [id number] CPT code: 53901, 94832 x11 METHODOLOGY: Deparaffinized sections of prefer/formalin-fixed tissue or PAP/DQ stained slides are incubated with monoclonal/polyclonal antibodies/oligonucleotide probes. Localization is made via biotin free immunoperoxidase method. Appropriate controls are performed and reacted as expected. Results on target cell population are indicated in the following table: RESULTS: ANTIBODY / CLONE RESULT GATA3 (L50-823) negative AE1-3 (AE1/AE3/PCK26) negative CK7 (OV-TL12/30) positive, occasional CK8 (18qefrD36) negative CK20 (KS20.8) negative BCL-2 (bcl-2/100/D5) positive Vimentin (V9) positive, stromal, rare 34BE12 (34BE12) positive, focal S-100 (4C4.9) positive, focal, dim NSE Neuron Specific Enolase negative P53 (DO-7) negative, null pattern Ki-67 (30-9) positive, 1% These tests were developed and their performance characteristics determined by [facility]. They may not have been cleared or approved by the U.S. Food and Drug Administration. The FDA has determined that such clearance or approval is not necessary. The above immunohistochemical/dualISH markers are ordered and reviewed by the Pathologist. INTERPRETATION: Left parotid mass, fine needle aspiration: Consistent with basal cell adenoma (monomorphic adenoma). AM:sue 05/01/2023
--- NOTE | 2023-04-29 09:30 | ASPOS_PTH ---
PATIENT: DIANA TORRES LOC: LAB U#:[id number] AGE/SX: 77/M ROOM: RE04/29/[address]: Dr. Garland Thomas MD : 1945 BED: DIS: 04/29/2023 SPEC #: [id number] RECD: 04/29/23 10:31 STATUS: JENNIFER HERNANDEZ #: [id number] KALEIGH: 04/29/23 09:[address]: Garland Thomas DEPT: CYTOLOGY RECD BY: Jennifer Aranda ENTERED: 04/29/23 10:32 SP TYPE: ASP HERE OTHR DR: Dr. Brad Moody MD Tissues: Parotid gland, NOS Procedures: Surgery Specimen Level IV Cytology Other Fine Needle Asp on Site HEADER OPERATION: Fine needle aspiration left parotid mass PRE-OP DIAGNOSIS: Left parotid mass TISSUE SUBMITTED: Left parotid mass DIAGNOSIS CYTOLOGY Fine needle aspiration, left parotid mass (smears and cell block): Consistent with basal cell adenoma (monomorphic adenoma) AM:sue 04/30/2023 COMMENT A fine needle aspiration was performed and the specimen is evaluated at the time of FNA by Dr. Sanchez. Immediate Evaluation = Negative for malignant cells. Favor sialadenitis. Case has been reviewed in consultation with Dr. Adames who concurs with the above diagnosis. IDC:SJ CYTOLOGY STUDY Slides are reviewed. CYTOLOGY GROSS Received is 0.2 ml of reddish fluid labeled with the patient's name, and designated left parotid mass. Four imprints and two paps are made from the submitted fluid and the rest is added to CytoLyt for cell block preparation. Submitted for cytology study. / sue 04/29/2023 TC:1 CPT: 13717, 69615, 32386, 11398
== END | disposition home or self-care (01) ==
LOC: LAB 09:15
PROVIDERS: PCP Family Medicine Geriatric Medicine; Referring Provider Otolaryngology; Visit Provider Otolaryngology
DX: K11.8 Other diseases of salivary glands (principal)
CPT/HCPCS: 10021; 88161; 88305; 88341; 88342

== ENCOUNTER 2025-08-20 15:33 | Emergency (ER) | payer MEDICARE, SELFPAY ==
[2025-08-20] VITALS (17 sets, daily range): BP systolic 96–152; BP diastolic 63–92; PULSE 72–88; RESP 16–34; TEMP 36.3–36.6; O2SAT 99–100; BMI 30.2
--- OUTSIDE RECORDS SUMMARY | 2025-08-20 16:07 | XMS RPT_ITS | CCD ---
Author Organization [facility] Care Team Providers Care Mill Tender Name Role Phone Dr. Brad Moody Chi Primary Care Provider Dr. Ruslan Win Emergency Provider Dr. Yessy Cummins Admit Provider Dr. Yessy Cummins Other Provider Dr. Taylor Brown Other Provider Dr. Blake Ponce Attending Provider Dr. Brad Moody Chi Primary Care Provider Dr. Sanaz Dunbar Emergency Provider Dr. Luis Antonio Daly Admit Provider Dr. Luis Antonio Daly Attending Provider Dr. Luis Antonio Daly Other Provider Dr. Brad Moody Chi Primary Care Provider Dr. Sanaz Dunbar Emergency Provider Dr. Luis Antonio Daly Admit Provider Dr. Luis Antonio Daly Attending Provider Dr. Luis Antonio Daly Other Provider Dr. Brad Moody Chi Referring Provider Dr. Luis Antonio Daly Referring Provider Dr. Roscoe Borjas Attending Provider Luis Antonio Daly Consulting Unavailable Luis Antonio Daly Attending Unavailable Luis Antonio Daly Admitting Unavailable Brad Moody Chi Primary Care Unavailable Fransisco, Brad Chi Referring Unavailable Fransisco, Brad Chi Primary Care Unavailable CalabrYessica garciaony Attending Unavailable Fransisco, Brad Chi Referring Unavailable Fransisco, Brad Chi Primary Care Unavailable CalabrYessica garciaony Attending Unavailable Fransisco, Brad Chi Primary Care Unavailable CalabrettaYessicaLuis Antonio Attending Unavailable Calabretta, Luis Antonio Admitting Unavailable Wartmann, Christopher Referring Unavailabl e Wartmann, Christopher Attending Unavailabl e Fransisco, Brad Chi Primary Care Unavailable Fransisco, Brad Chi Primary Care Unavailable Fransisco, Brad Chi Attending Unavailable Fransisco, Brad Chi Primary Care Unavailable Fransisco, Brad Chi Attending Unavailable Calabretta Luis Antonio Attending Unavailable Calabretta, Luis Antonio Referring Unavailable Fransisco, Brad Chi Primary Care Unavailable Fransisco, Brad Chi Referring Unavailable Fransisco, Brad Chi Primary Care Unavailable CalabrettaYessicaLuis Antonio Attending Unavailable Fransisco, Brad Chi Primary Care Unavailable Fransisco, Brad Chi Attending Unavailable Fransisco, Brad Chi Referring Unavailable CalabrYessica garciaony Attending Unavailable Fransisco, Brad Chi Primary Care Unavailable Fransisco, Brad Chi Referring Unavailable CalabrYesisca garciaony Attending Unavailable Fransisco, Brad Chi Primary Care Unavailable Calabretta, Luis Antonio Referring Unavailable Fransisco, Brad Chi Primary Care Unavailable Roscoe Borjas Attending Unavailable Fransisco, Brad Chi Primary Care Unavailable Calabrradha Luis Antonio Consulting Unavailable Calabretta, Luis Antonio Referring Unavailable Calabrradha Luis Antonio Admitting Unavailable CalabrYessica garciaony Attending Unavailable Fransisco, Brad Chi Primary Care Unavailable CalabrYessica garciaony Consulting Unavailable Calabretta, Luis Antonio Referring Unavailable Calabretta Luis Antonio Attending Unavailable Fransisco, Brad Chi Primary Care Unavailable Fransisco, Brad Chi Attending Unavailable Calabrradha Luis Antonio Referring Unavailable CalabrettaYessicaLuis Antonio Attending Unavailable Fransisco, Brad Chi Primary Care Unavailable Fransisco, Brad Chi Attending Unavailable Fransisco, Brad Chi Primary Care Unavailable Fransisco, Brad Chi Attending Unavailable Fransisco, Brad Chi Primary Care Unavailable Fransisco, Brad Chi Primary Care Unavailable Calabretta Luis Antonio Referring Unavailable Calabrradha Luis Antonio Admitting Unavailable CalabrYessica garciaony Attending Unavailable PRICE KEY DO Primary Care Physician PRICE KEY DO Attending Unavailable PRICE KEY DO Primary Care Unavailable PRICE KEY DO Primary Care Unavailable PRICE KEY DO Attending Unavailable PRICE KEY DO Primary Care Unavailable KEY DO, PRICE E Attending Unavailable KEY DO, PRICE E Primary Care Unavailable KEY DO, PRICE E Attending Unavailable KEY DO, PRICE E Primary Care Unavailable KEY DO, PRICE E Attending Unavailable KEY DO, PRICE E Primary Care Unavailable KEY DO, PRICE E Attending Unavailable KEY DO, PRICE E Primary Care Unavailable KRYSTEN CHESTER MD Attending Unavailable KEY DO, PRICE E Primary Care Unavailable GRAYSON ARNETT DO Attending Unavailable RASTA ORTEGA Attending Unavailable EWA MCGOWAN Referring Unavailable FRANSISCO, BRAD CHI Primary Care Unavailable BECK ELIZALDE Admitting Unavailable JENIFER PARRA Attending Unavailable LISETH BERNARD Referring Unavailable FRANSISCO, BRAD CHI Primary Care Unavailable Unavailable Primary Care Provider Unavailabl e Unavailable Primary Care Provider Unavailabl e Fransisco, Brad Chi Primary Care Provider [phone] Key DO, Price Primary Care Provider [phone] CORTNEY DESOUZA Attending Unavailable KEY, PRICE Primary Care Unavailable CORTNEY DESOUZA Attending Unavailable Cortney Desouza MD Unavailable Ilan Simon MD Unavailable KEY DO, PRICE E Attending Unavailable KEY DO, PRICE E Primary Care Unavailable KEY DO, PRICE E Attending Unavailable KEY DO, PRICE E Primary Care Unavailable DR JULIUS GODINEZ DO Attending Unavailable KEY DO, PRICE E Primary Care Unavailable KEY DO, PRICE E Attending Unavailable KEY DO, PRICE E Primary Care Unavailable KEY DO, PRICE E Attending Unavailable KEY DO, PRICE E Primary Care Unavailable KEY DO, PRICE E Primary Care Unavailable KEY DO, PRICE E Attending Unavailable Blake Martínez DO Unavailable Montrell RN, Gabbi Unavailable Unavailable Ilan Simon MD Unavailable ILAN SIMON Referring Unavailable KEY, PRICE Primary Care Unavailable ILAN SIMON Referring Unavailable KEY, PRICE Primary Care Unavailable ILAN SIMON Attending Unavailable KEY, PRICE Primary Care Unavailable ILAN SIMON Referring Unavailable KEY, PRICE Primary Care Unavailable ELIEZER CHURCH Attending Unavailable KEY, PRICE Primary Care Unavailable ILAN SIMON Referring Unavailable KEY, PRICE Primary Care Unavailable KEY, PRICE Primary Care Unavailable ILAN SIMON Attending Unavailable BLAKE MARTÍNEZ Referring Unavailable KEY, PRICE Primary Care Unavailable KEY, PRICE Primary Care Unavailable MATT OLIVO Attending Unavailable [facility] Primary Care Unavailable ELIEZER CHURCH Attending Unavailable ELIEZER CHURCH Referring Unavailable [facility] Primary Care Unavailable BLAKE MARTÍNEZ Attending Unavailable [facility] Primary Care Unavailable BLAKE MARTÍNEZ Referring Unavailable KEY, PRICE Primary Care Unavailable KEY, PRICE Primary Care Unavailable ILAN SIMON Attending Unavailable ILAN SIMON Referring Unavailable [facility] Primary Care Unavailable ILAN SIMON Attending Unavailable ILAN SIMON Referring Unavailable [facility] Primary Care Unavailable ALFRED, DABRAYDENUNG Referring Unavailable [facility] Primary Care Unavailable ALFRED, LESLEYUNG Referring Unavailable [facility] Primary Care Unavailable MATT OLIVO Admitting Unavailable MATT OLIVO Attending Unavailable [facility] Primary Care Unavailable MARY CARMEN STEPHENS Referring Unavailable [facility] Primary Care Unavailable KEY, MUSKEGON Primary Care Unavailable BLAIRE LUTHER Attending Unavailable [facility] Primary Care Unavailable ILAN SIMON Attending Unavailable [facility] Primary Care Unavailable ILAN SIMON Referring Unavailable [facility] Primary Care Unavailable ILAN SIMON Referring Unavailable [facility] Primary Care Unavailable [facility] Primary Care Unavailable ILAN ISMON Attending Unavailable CORTNEY DESOUZA Referring Unavailable [facility] Primary Care Unavailable MATT OLIVO Attending Unavailable [facility] Primary Care Unavailable BLAKE MARTÍNEZ Referring Unavailable MATT OLIVO Referring Unavailable [facility] Primary Care Unavailable ILAN SIMON Attending Unavailable [facility] Primary Care Unavailable JOSÉ MIGUEL LEDBETTER Attending Unavailable [facility] Primary Care Unavailable [facility] Primary Care Unavailable ELIEZER CHURCH Attending Unavailable ELIEZER CHURCH Referring Unavailable [facility] Primary Care Unavailable BLAKE MARTÍNEZ Attending Unavailable CORTNEY DESOUZA Referring Unavailable [facility] Primary Care Unavailable ILAN SIMON Referring Unavailable [facility] Primary Care Unavailable BLAKE MARTÍNEZ Referring Unavailable [facility] Primary Care Unavailable LESLEY SIMONUNG Referring Unavailable [facility] Primary Care Unavailable ILAN SIMON Attending Unavailable [facility] Primary Care Unavailable LESLEY SIMONUNG Referring Unavailable [facility] Primary Care Unavailable ALFRED DABRAYDENUNG Referring Unavailable [facility] Primary Care Unavailable [facility] Primary Care Unavailable LESLEY SIMONUNG Referring Unavailable [facility] Primary Care Unavailable ILAN SIMON Attending Unavailable ALFRED, DAESUNG Referring Unavailable KEY, PRICE Primary Care Unavailable ALFRED, DABRAYDENUNG Referring Unavailable KEY, PRICE Primary Care Unavailable ALFRED, DABRAYDENUNG Referring Unavailable KEY, PRICE Primary Care Unavailable KEY, PRICE Primary Care Unavailable ALFRED, DABRAYDENUNG Referring Unavailable KEY, PRICE Primary Care Unavailable BLAKE MARTÍNEZ Referring Unavailable KEY, PRICE Primary Care Unavailable MATT OLIVO Referring Unavailable KEY, PRICE Primary Care Unavailable JUAQUIN BATRES Attending Unavailable KEY, PRICE Primary Care Unavailable HARPREET JOHNSON Attending Unavailable ELIEZER CHURCH Referring Unavailable KEY, PRICE Primary Care Unavailable ALFREDILAN Attending Unavailable KEY, PRICE Primary Care Unavailable ALFRED, DABRAYDENUNG Referring Unavailable KEY, PRICE Primary Care Unavailable JOSÉ MIGUEL LEDBETTER Attending Unavailable ALFRED, DABRAYDENUNG Referring Unavailable KEY, PRICE Primary Care Unavailable ALFRED, DABRAYDENUNG Referring Unavailable KEY, PRICE Primary Care Unavailable MELONIE BOLANOS Attending Unavailable KEY, PRICE Primary Care Unavailable BLAKE MARTÍNEZ Referring Unavailable KEY, PRICE Primary Care Unavailable ALFRED, LESLEYUNG Referring Unavailable KEY, PRICE Primary Care Unavailable KEY, PRICE Primary Care Unavailable MELONIE BOLANOS Attending Unavailable KEY, PRICE Primary Care Unavailable RUFINO GIVENS Referring Unavailable KEY, PRICE Primary Care Unavailable CORTNEY DESOUZA Referring Unavailable KEY, PRICE Primary Care Unavailable KEY, PRICE Primary Care Unavailable DEBORAH KUNZ Admitting Unavailable DEBORAH KUNZ Attending Unavailable CORTNEY DESOUZA Referring Unavailable KEY, PRICE Primary Care Unavailable CORTNEY DESOUZA Referring Unavailable KEY, PRICE Primary Care Unavailable CORTNEY DESOUZA Referring Unavailable KEY, PRICE Primary Care Unavailable Medications Current Medications Medication Drug Class(es) Dates Sig (Normalized) Sig (Original) 0.5 ML tirzepatide 10 MG/ML Auto-Injector [Mounjaro] (1 source) Start: 01-25-2025 inject 1 dose by subcutaneous injection every week Mounjaro 5 mg/0.5 mL subcutaneous solution Dose : 5 mg =, Subcutaneous, qWeek, rotate injection sites, # 4 EA, 2 Refill(s), Pharmacy: [facility], 170.6, cm, 11/21/24 13:41:00 EST, Height, kg, 01/05/25 14:16:00 EDT, Dosing Weight Start Date: 01/25/25 Status: Ordered Quantity: 4.0 Unit: EA Repeat number: 3 acetaminophen 325 mg oral tablet (4 sources) Start: 05-10-2025 End: 05-24-2025 take 2 tablets by mouth every six hours as needed acetaminophen (TYLENOL) 325 mg tablet Take 2 tablets by mouth every 6 hours as needed for pain for up to 14 days. 100 tablet 05/10/2025 11:19 AM EDT 05/10/2025 05/24/2025 Active acetaminophen 325 mg / HYDROcodone bitartrate 5 mg oral tablet (1 source) Opioid Agonist Start: 11-26-2023 End: 11-29-2023 take 1 tablet by mouth every six hours as needed for pain [place]ram 325- 5 mg oral tablet Dose = 1 tab(s), Oral, q6h, PRN As needed for severe pain, X 3 day(s), # 12 tab(s), 0 Refill(s), Renal colic on left side, 104.5 Start Date: 11/26/23 Stop Date: 11/29/23 Status: Ordered amoxicillin 500 mg oral capsule (1 source) Penicillin-class Antibacterial Start: 11-23-2023 End: 12-03-2023 amoxicillin 500 mg oral capsule Dose : 500 mg = 1 cap(s), Oral, BID, X 10 day(s), # 20 cap(s), 0 Refill(s), 12/03/23 4:21:00 PM EST, Pharmacy: [id number], Otalgia of left ear, 169, cm, 11/23/23 15:34:00 EST, Height, kg, 11/23/23 15:34:00 EST, Dosing Weight Start Date: 11/23/23 Stop Date: 12/03/23 Status: Ordered amoxicillin 875 mg / clavulanate 125 mg oral tablet (7 sources) Penicillin-class Antibacterial Start: 05-10-2025 End: 05-24-2025 take 1 tablet by mouth twice daily amoxicillin-clavul anate potassium (AUGMENTIN) 875-125 mg per tablet Take 1 tablet by mouth two times a day for 14 days. 28 tablet 05/10/2025 11:19 AM EDT 05/10/2025 05/24/2025 Active Start: 03-12-2025 End: 03-22-2025 take 1 tablet by mouth every twelve hours amoxicillin-clavulanate 875 mg-125 mg or al tablet 1 tab(s), Oral, q12h, Take with a probiotic, X 10 day(s), # 20 tab(s), 0 Refill(s), 03/22/25 11:39:00 PM EDT, 95.7 Start Date: 03/12/25 Stop Date: 03/22/25 Status: Ordered Quantity: 20.0 Unit: tab(s) Repeat number: 1 Start: 12-04-2022 take 1 tablet by lianne th twice daily Amoxicillin-Pot Clavulanate (Augmentin) 500-125 mg tablet Active 1 TABLET PO TWICE A DAY December 04, 2022 12:00am bismuth tribrom-petrolatum (XEROFORM) 5 X 9 bndg (4 sources) Start: 06-02-2025 bismuth tribrom-petrolatum (XEROFORM) 5 X 9 bndg Apply 1 application to affected area once daily. 50 each 1 06/02/2025 Active Blood Glucose Test Machine (3 sources) Start: 01-31-2025 Blood Glucose Test Machine See Instructions, AccuChek Glucometer-Use glucometer daily as directed for blood sugar checks. Dispense insurance preferred device, # 1 EA, 0 Refill(s), Pharmacy: [facility], 170.6, cm, 11/21/24 13:41:00 EST, Height, 98.2, kg, 01/05/25 14:16:00 EDT, Dosing Weight Start Date: 01/31/25 Status: Ordered Quantity: 1.0 Unit: EA Repeat number: 1 cefdinir 300 mg oral capsule (1 source) Cephalosporin Antibacterial Start: 06-02-2024 End: 06-09-2024 take 1 capsule by mouth twice daily cefdinir (OMNICEF) 300 mg capsule Take 1 capsule by mouth two times a day for 7 days. 14 capsule 06/02/2024 06/09/2024 Active dexamethasone 1 mg/ml / tobramycin 3 mg/ml ophthalmic suspension (2 sources) Aminoglycoside Antibacterial, Corticosteroid Start: 05-10-2025 End: 05-19-2025 take 1 drop(s) into the eye(s) every four hours tobramycin-dexAMETHaso ne (TOBRADEX) 0.3-0.1 % ophthalmic suspension Use 1 drop in the left eye every 4 hours for 2 days. 2.5 mL 05/10/2025 11:19 AM EDT 05/10/2025 05/19/2025 Active famotidine 40 mg oral tablet (1 source) Histamine-2 Receptor Antagonist Start: 04-18-2025 famotidine 40 mg oral tablet Dose : 40 mg = 1 tab(s), Oral, Daily, # 30 tab(s), 0 Refill(s), Pharmacy: [id number], 170.1, cm, 04/18/25 13:28:00 EDT, Height, kg, 04/18/25 13:28:00 EDT, Dosing Weight Start Date: 04/18/25 Status: Ordered Quantity: 30.0 Unit: tab(s) Repeat number: 1 honey (Moerae Matrix HONEY,) 80 % gel (3 sources) honey (Activaided Orthotics,) 80 % gel Apply to affected area once daily. Active hydroCHLOROthiazide 25 mg oral tablet (20 sources) Thiazide Diuretic Start: 11-11-2024 take 1 tablet by mouth once daily in the morning hydroCHLOROthiazide 25 mg tablet Take 25 mg by mouth every morning. 01/02/2025 Active Start: 08-03-2024 hydroCHLOROthi azide 25 mg oral tablet Dose : 25 mg = 1 tab(s), Oral, qAM, # 30 tab(s), 1 Refill(s), Pharmacy: [id number], 170.6, cm, 08/03/24 16:08:00 EST, Height, kg, 08/03/24 16:00:00 EST, Dosing Weight Start Date: 08/03/24 Status: Ordered Quantity: 30.0 Unit: tab(s) Repeat number: 2 Start: 02-19-2024 End: 01-18-2025 hydroCHLOROthiazide 12.5 mg tablet 12.5 mg. 02/19/2024 01/18/2025 Discontinued (Course of therapy completed) Start: 11-06-2023 hydroCHLOROthi azide 12.5 mg oral tablet Dose : 12.5 mg = 1 tab(s), Oral, qDay, # 90 tab(s), 1 Refill(s), Pharmacy: [id number], 169, cm, 11/06/23 14:17:00 EST, Height, kg, 11/06/23 14:17:00 EST, Dosing Weight Start Date: 11/06/23 Status: Ordered Start: 04-09-2022 take 1 tablet by lianne th once daily Hydrochlorothiazide Active 12.5 TABLET PO DAILY April 09, 2022 12:00am ibuprofen 600 mg oral tablet (2 sources) Nonsteroidal Anti-inflammatory Drug Start: 05-12-2024 End: 05-22-2024 take 1 tablet by mouth three times daily ibuprofen (MOTRIN) 600 mg tablet Indications: Pericardial effusion (noninflammatory) Take 1 tablet by mouth three times a day for 10 days. 30 tablet 05/12/2024 05/22/2024 Active losartan potassium 50 mg oral tablet (20 sources) Angiotensin 2 Receptor Mari Start: 03-14-2021 losartan Active 20 MG OTHER DAILY March 14, 2021 12:19pm Start: 03-14-2021 End: 04-09-2022 losartan Discontinued 20 MG OTHER DAILY March 13, 2021 11:00pm April 09, 2022 3:51am Start: 03-14-2021 End: 04-09-2022 losartan Discontinued 20 MG OTHER DAILY March 14, 2021 12:00am April 09, 2022 4:51am Start: 07-07-2019 take 1 tablet by lianne th once daily losartan (COZAAR) 50 mg tablet Take 50 mg by mouth once daily. 3 07/07/2019 Active Start: 07-07-2019 losartan 50 mg oral tablet Dose : 50 mg = 1 tab(s), Oral, BID, # 200 tab(s), 1 Refill(s), Pharmacy: [facility], 170.6, cm, 10/18/24 13:28:00 EST, Height, kg, 10/18/24 13:28:00 EST, Dosing Weight Start Date: 11/11/24 Status: Ordered Quantity: 200.0 Unit: tab(s) Repeat number: 2 metroNIDAZOLE 500 mg oral tablet (3 sources) Nitroimidazole Antimicrobial Start: 06-02-2024 End: 06-09-2024 take 1 tablet by mouth every eight hours metroNIDAZOLE (FLAGYL) 500 mg tablet Take 1 tablet by mouth every 8 hours for 7 days. 21 tablet 06/02/2024 06/09/2024 Active Start: 01-20-2023 take 500 mg by mouth three times daily Metronidazole Active 500 MG PO THREE TIMES A DAY January 20, 2023 12:00am mineral oil 0.2 mg/mg / petrolatum 0.8 mg/mg ophthalmic ointment (9 sources) Start: 05-10-2025 End: 05-24-2025 white petrolatum-mineral oil (SOOTHE LUBRICANT EYE NIGHT TIME OINTMENT) ointment Use 1 application in the left eye daily at bedtime for 14 days. 5 g 05/10/2025 Active ondansetron 4 mg oral tablet (1 source) Serotonin-3 Receptor Antagonist Start: 11-26-2023 End: 11-29-2023 Zofran 4 mg oral tablet Dose : 4 mg = 1 tab(s), Oral, q6h, PRN As needed for nausea and vomiting, X 3 day(s), # 12 tab(s), 0 Refill(s), 11/29/23 11:52:00 PM EST Start Date: 11/26/23 Stop Date: 11/29/23 Status: Ordered oxyCODONE hydrochloride 5 mg oral tablet (1 source) Opioid Agonist Start: 12-25-2022 take 5-10 mg by mouth every six hours Oxycodone Active 5 - 10 MG PO EVERY 6 HOURS 14 02December 25, 2022 polyvinyl alcohol 0.014 ml/ml / povidone 6 mg/ml ophthalmic solution (9 sources) Start: 05-10-2025 End: 06-09-2025 take 2-5 drop(s) into the eye(s) every hour as needed polyvinyl alcohol-povidone (REFRESH) 1.4-0.6 % ophthalmic solution Use 2-5 drops in the left eye every hour as needed (Place at bedside for self administration). 60 each 05/10/2025 11:19 AM EDT 05/10/2025 Active pravastatin sodium 40 mg oral tablet (20 sources) HMG-CoA Reductase Inhibitor Start: 04-09-2022 pravastatin 40 mg oral tablet Dose : 40 mg = 1 tab(s), Oral, qHS, # 90 tab(s), 3 Refill(s), Pharmacy: [facility], 170.6, cm, 10/18/24 13:28:00 EST, Height, kg, 10/18/24 13:28:00 EST, Dosing Weight Start Date: 11/11/24 Status: Ordered Quantity: 90.0 Unit: tab(s) Repeat number: 4 take 1 tablet by mouth once angelina y pravastatin (PRAVACHOL) 20 mg tablet Take 20 mg by mouth once daily. 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, cm, 04/18/25 13:28:00 EDT, Height, kg, 04/18/25 13:28:00 EDT, Dosing Weight Start Date: 04/18/25 Stop Date: 04/25/25 Status: Ordered Quantity: 28.0 Unit: tab(s) Repeat number: 1 Indications: Camacho's palsy; Start: 03-14-2021 End: 04-09-2022 take 60 mg by mouth once daily Prednisone Discontinued 60 MG PO DAILY March 14, 2021 12:00am April 09, 2022 4:50am tamsulosin hydrochloride 0.4 mg oral capsule (1 source) alpha-Adrenergic Mari Start: 11-26-2023 End: 12-03-2023 Flomax 0.4 mg oral capsule Dose : 0.4 mg = 1 cap(s), Oral, qDay, # 7 cap(s), 0 Refill(s) Start Date: 11/26/23 Stop Date: 12/03/23 Status: Ordered Completed/Discontinued Medications Medication Drug Class(es) Dates Sig (Normalized) Sig (Original) aspirin 81 mg chewable tablet (9 sources) Platelet Aggregation Inhibitor, Nonsteroidal Anti-inflammatory Drug Start: 05-10-2025 End: 06-08-2025 take 1 tablet by mouth once daily aspirin 81 mg chewable tablet Take 1 tablet by mouth once daily for 16 doses. 16 tablet 05/10/2025 11:19 AM EDT 05/10/2025 06/08/2025 Discontinued ciprofloxacin 3 mg/ml ophthalmic solution (7 sources) Quinolone Antimicrobial Start: 01-18-2025 End: 02-27-2025 take 2 drop(s) into the eye(s) twice daily ciprofloxacin HCl (CILOXAN) 0.3 % ophthalmic solution 2 drops two times a day. Affected ear 5 mL 01/18/2025 02/27/2025 Discontinued Start: 01-19-2023 take 500 mg by mouth twice daily Ciprofloxacin Hcl Active 500 MG PO TWICE A DAY January 19, 2023 12:00am colchicine 0.6 mg oral tablet (7 sources) Start: 05-12-2024 End: 02-27-2025 take 1 tablet by mouth twice daily colchicine 0.6 mg tablet Indications: Pericardial effusion (noninflammatory) (HCC) Take 1 tablet by mouth two times a day. 60 tablet 2 05/12/2024 02/27/2025 Discontinued dexamethasone phosphate 1 mg/ml ophthalmic solution (5 sources) Corticosteroid Start: 01-18-2025 End: 02-27-2025 take 2 drop(s) into the eye(s) twice daily dexAMETHasone 0.1 % ophthalmic solution Two drops in affected ear twice a day 5 mL 01/18/2025 02/27/2025 Discontinued hydrOXYzine pamoate 50 mg oral capsule (12 sources) Antihistamine Start: 03-14-2021 End: 04-09-2022 take 1 capsule by mouth three times daily Hydroxyzine Pamoate (Vistaril) 50 mg capsule Discontinued 50 MG PO THREE TIMES A DAY March 14, 2021 12:00am April 09, 2022 4:50am iv contrast (will be provided with radiology test) (1 source) Start: 01-18-2025 End: 01-18-2025 inject 1 dose intravenously once, then inject 1 dose intravenously once iv contrast (will be provided with radiology test) Inject 1 each intravenously one time only for [address] Neck W IVCON No IV access, insert saline lock prior to the sedation, infusion, injection for imaging exam. Discontinue saline lock post exam. If Pt. has a central line or IVAD, may access for administration according to line specific nursing protocol. Once exam is complete flush line and de-access according to line specific nursing protocol in the CT contrast administration guidelines link. 1 each 01/18/2025 01/18/2025 MOUNJARO 2.5 mg/0.5 mL pen injector (5 sources) Start: 12-07-2024 End: 02-27-2025 inject 2.5 mg by subcutaneous injection every week MOUNJARO 2.5 mg/0.5 mL pen injector INJECT 2.5 MG UNDER THE SKIN EVERY WEEK. - ROTATE INJECTION SITES 12/07/2024 02/27/2025 Discontinued Start: 12-07-2024 inject 2.5 mg by sub cutaneous injection every week MOUNJARO 2.5 mg/0.5 mL pen injector INJECT 2.5 MG UNDER THE SKIN EVERY WEEK. - ROTATE INJECTION SITES 12/07/2024 Active MOUNJARO 5 mg/0.5 mL pen injector (5 sources) Start: 01-02-2025 End: 02-27-2025 inject 5 mg by subcutaneous injection every week MOUNJARO 5 mg/0.5 mL pen injector INJECT 5MG SUBCUTANEOUSLY ONCE WEEKLY ROTATE INJECTION SITES 01/02/2025 02/27/2025 Discontinued Start: 01-02-2025 inject 5 mg by subcu taneous injection every week MOUNJARO 5 mg/0.5 mL pen injector INJECT 5MG SUBCUTANEOUSLY ONCE WEEKLY ROTATE INJECTION SITES 01/02/2025 Active omeprazole 40 mg delayed release oral capsule (20 sources) Proton Pump Inhibitor Start: 01-05-2025 End: 04-25-2025 take 1 capsule by mouth once daily omeprazole (PRILOSEC) 40 mg capsule Take 1 capsule by mouth once daily. 01/05/2025 04/25/2025 Discontinued Start: 08-08-2019 End: 05-10-2024 take 40 mg by mouth once daily Omeprazole Active 40 MG PO DAILY April 09, 2022 12:00am pantoprazole 20 mg delayed release oral tablet (7 sources) Proton Pump Inhibitor Start: 05-12-2024 End: 02-27-2025 take 1 tablet by mouth once daily pantoprazole DR (PROTONIX) 20 mg tablet Indications: Pericardial effusion (noninflammatory) (HCC) , Epigastric pain Take 1 tablet by mouth once daily for 10 days. 10 tablet 05/12/2024 02/27/2025 Discontinued petrolatum 0.41 mg/mg topical ointment (9 sources) Start: 05-11-2025 End: 06-10-2025 white petrolatum (AQUAPHOR) 41 % topical ointment Apply to affected area two times a day. Patient should start on May 11, 2025. 05/11/2025 06/08/2025 Discontinued promethazine hydrochloride 12.5 mg oral tablet (12 sources) Phenothiazine Start: 12-14-2021 End: 04-09-2022 Promethazine Discontinued 12.5 MG PO THREE TIMES A DAY December 14, 2021 12:00am April 09, 2022 4:50am 3 doses during day; last dose no later than 4 hr before bedtime Problems Active Problems Problem Classification Problem Date Documented Da te Episodic/Chronic Abdominal pain (14 sources) Acute abdominal pain; Translations: [Unspecified abdominal pain] Onset: 3 12-02-2022 Episodic Biliary tract disease (20 sources) Disease of biliary tract, unspecified; Translations: [Cholangiectasis] Onset: 3 04-30-2024 Chronic Calculus of urinary tract (6 sources) Renal colic; Translations: [Unspecified renal colic] Onset: 4 Episodic Cancer of head and neck (20 sources) Malignant tumor of base of tongue; Translations: [Primary malignant neoplasm of parotid gland] Onset: 5 02-13-2025 Chronic Cancer; other and unspecified primary (10 sources) H/O: malignant neoplasm 11-06-2023 Episodic Chronic kidney disease (1 source) Chronic kidney disease, unspecified; Translations: [Chronic kidney disease, unspecified CKD stage] Onset: 5 Chronic Chronic obstructive pulmonary disease and bronchiectasis (2 sources) Bronchitis; Translations: [Bronchitis, not specified as acute or chronic] Onset: 5 Episodic Complications of surgical procedures or medical care (6 sources) Postoperative seroma; Translations: [Other specified complications of surgical and medical care, not elsewhere classified, initial encounter] 01-14-2023 Episodic Diabetes mellitus with complications (2 sources) Type 2 diabetes mellitus with other specified complication; Translations: [Type 2 diabetes mellitus with other specified complication] Onset: 5 Chronic Diabetes mellitus without complication (20 sources) Type 2 diabetes mellitus; Translations: [Type 2 diabetes mellitus with other specified complication] Onset: 5 08-23-2024 Chronic Disorders of lipid metabolism (14 sources) Hyperlipidemia, unspecified; Translations: [Mixed hyperlipidemia] Onset: 2 11-06-2023 Chronic Diverticulosis and diverticulitis (20 sources) Diverticulum of duodenum; Translations: [Diverticulosis of small intestine without perforation or abscess without bleeding] Onset: 4 04-27-2024 Chronic Esophageal disorders (17 sources) Gastroesophageal reflux disease; Translations: [Gastro-esophageal reflux disease without esophagitis] Onset: 5 01-05-2025 Chronic Essential hypertension (20 sources) Essential hypertension; Translations: [Essential (primary) hypertension] Onset: 4 11-06-2023 Chronic Fluid and electrolyte disorders (2 sources) Dehydration; Translations: [Hyperkalemia] Onset: 5 Episodic Heart valve disorders (8 sources) Irregular heart beat 02-01-2024 Episodic Hyperplasia of prostate (20 sources) Nocturia due to benign prostatic hypertrophy; Translations: [Benign prostatic hyperplasia with lower urinary tract symptoms] Onset: 4 04-27-2024 Chronic Malaise and fatigue (3 sources) Other malaise; Translations: [Other fatigue] Onset: 5 Episodic Nonspecific chest pain (10 sources) Chest pain; Translations: [Chest pain, unspecified] Episodic Nutritional deficiencies (2 sources) Vitamin D deficiency, unspecified; Translations: [Unspecified severe protein-calorie malnutrition] Onset: 3 Chronic Other aftercare (1 source) Postoperative visit; Translations: [Encounter for other specified surgical aftercare] 06-02-2025 Episodic Other aftercare (2 sources) Encounter for other specified surgical aftercare; Translations: [Encounter for surgical follow-up care] Onset: 5 Episodic Other and unspecified benign neoplasm (5 sources) Benign neoplasm of parotid gland 08-03-2024 Episodic Other diseases of bladder and urethra (20 sources) Hypertrophy of bladder; Translations: [Other specified disorders of bladder] Onset: 4 04-27-2024 Chronic Other diseases of kidney and ureters (2 sources) Disorder of kidney and ureter, unspecified; Translations: [Disorder of kidney and ureter, unspecified] Onset: 5 Episodic Other ear and sense organ disorders (2 sources) Hearing loss; Translations: [Unspecified hearing loss, unspecified ear] 04-27-2025 Chronic Other ear and sense organ disorders (1 source) Sensorineural hearing loss, bilateral; Translations: [Sensorineural hearing loss, bilateral] 04-27-2025 Chronic Other ear and sense organ disorders (1 source) Sensorineural hearing loss, bilateral; Translations: [Sensorineural hearing loss (SNHL) of both ears] Onset: 5 Chronic Other ear and sense organ disorders (1 source) Unspecified hearing loss, unspecified ear; Translations: [Hearing loss, unspecified hearing loss type, unspecified laterality] Onset: 5 Chronic Other ear and sense organ disorders (1 source) Otorrhea of left ear; Translations: [Otorrhea, left ear] 01-18-2025 Episodic Other ear and sense organ disorders (1 source) Otorrhea, left ear; Translations: [Otorrhea, left] Onset: 5 Episodic Other gastrointestinal disorders (1 source) Intestinal malabsorption, unspecified; Translations: [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)] Onset: 4 Chronic Other gastrointestinal disorders (6 sources) History of gastroesophageal reflux disease; Translations: [Personal history of other diseases of the digestive system] 12-02-2022 Episodic Other gastrointestinal disorders (3 sources) Personal history of other diseases of the digestive system; Translations: [Personal history of other diseases of digestive system] 12-02-2022 Episodic Other gastrointestinal disorders (1 source) Dysphagia, unspecified; Translations: [Dysphagia, unspecified type] Onset: 5 Episodic Other liver diseases (5 sources) Non-alcoholic fatty liver 07-05-2024 Chronic Other liver diseases (2 sources) Abnormal levels of other serum enzymes; Translations: [Abnormal levels of other serum enzymes] Onset: 4 Episodic Other liver diseases (1 source) Increased bilirubin level; Translations: [Unspecified jaundice] 05-10-2024 Episodic Other liver diseases (1 source) Enzyme level - finding; Translations: [Abnormal levels of other serum enzymes] Episodic Other liver diseases (1 source) Elevated liver enzymes level 03-25-2024 Episodic Other lower respiratory disease (1 source) Nodule of lung; Translations: [Solitary pulmonary nodule] 05-20-2024 Episodic Other lower respiratory disease (3 sources) Multiple nodules of lung; Translations: [Other nonspecific abnormal finding of lung field] 05-20-2024 Episodic Other lower respiratory disease (1 source) Other nonspecific abnormal finding of lung field; Translations: [Lung nodules] Onset: 5 Episodic Other nervous system disorders (3 sources) Camacho's palsy; Translations: [Camacho's palsy] Onset: Episodic Other nervous system disorders (1 source) Facial palsy; Translations: [Camacho's palsy] 05-19-2025 Episodic Other nutritional; endocrine; and metabolic disorders (7 sources) Body mass index 30+ - obesity 11-06-2023 Chronic Other nutritional; endocrine; and metabolic disorders (3 sources) Severe obesity 11-06-2023 Chronic Other nutritional; endocrine; and metabolic disorders (20 sources) Obese class I; Translations: [Obesity, unspecified] Onset: 4 04-28-2024 Chronic Other nutritional; endocrine; and metabolic disorders (11 sources) Obese class II; Translations: [Obesity, Class II, BMI 35-39.9] Onset: 5 05-09-2025 Chronic Other nutritional; endocrine; and metabolic disorders (1 source) Hypomagnesemia; Translations: [Hypomagnesemia] Onset: Chronic Other skin disorders (10 sources) Lesion of skin of face 11-06-2023 Episodic Other skin disorders (2 sources) Lump on face 07-05-2024 Episodic Other skin disorders (2 sources) Mass of left parotid gland 01-24-2025 Episodic Kim-; endo-; and myocarditis; cardiomyopathy (except that caused by tuberculosis or sexually transmitted disease) (15 sources) Pericardial effusion - noninflammatory; Translations: [Pericardial effusion (noninflammatory)] Onset: 5 05-11-2024 Episodic Residual codes; unclassified (1 source) Personal history of irradiation; Translations: [History of radiation to head and neck region] Onset: 5 Episodic Screening and history of mental health and substance abuse codes (3 sources) Tobacco use and exposure - finding 03-01-2025 Chronic Secondary malignancies (20 sources) Secondary malignant neoplasm of lymph nodes of neck; Translations: [Secondary and unspecified malignant neoplasm of lymph nodes of head, face and neck] Onset: 5 02-13-2025 Chronic Secondary malignancies (3 sources) Secondary and unspecified malignant neoplasm of lymph nodes of head, face and neck; 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)] Onset: 5 Chronic Substance-related disorders (11 sources) Nicotine dependence, unspecified, uncomplicated; Translations: [Tobacco use disorder] Onset: 5 05-06-2025 Chronic Unclassified (1 source) Established Patient Onset: 5 Past or Other Problems Problem Classification Problem Date Documented Da te Episodic/Chronic Biliary tract disease (20 sources) Acute cholecystitis; Translations: [Acute cholecystitis] Onset: 01-01-2023 Resolved: 04-30-2024 12-02-2022 Episodic Diseases of mouth; excluding dental (6 sources) Other diseases of salivary glands; Translations: [Mass of left parotid gland] Onset: 05-05-2023 01-18-2025 Episodic Noninfectious gastroenteritis (1 source) Noninfective gastroenteritis and colitis, unspecified; Translations: [Noninfective gastroenteritis and colitis, unspecified] Onset: 01-21-2023 Episodic Other and unspecified benign neoplasm (20 sources) Benign neoplasm of adrenal gland; Translations: [Benign lipomatous neoplasm of other sites] Onset: 04-27-2024 04-27-2024 Episodic Other diseases of kidney and ureters (20 sources) Acquired renal cystic disease; Translations: [Cyst of kidney, acquired] Onset: 04-27-2024 04-27-2024 Episodic Other gastrointestinal disorders (20 sources) Diarrhea; Translations: [Diarrhea, unspecified] Onset: 04-28-2024 04-30-2024 Episodic Other gastrointestinal disorders (1 source) Diarrhea, unspecified; Translations: [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)] Onset: 04-30-2024 Episodic Other lower respiratory disease (20 sources) Chronic cough; Translations: [Chronic cough] Onset: 04-27-2024 04-27-2024 Episodic Other lower respiratory disease (20 sources) Hemoptysis; Translations: [Hemoptysis] Onset: 04-28-2024 04-28-2024 Episodic Other nervous system disorders (1 source) Other acute postprocedural pain; Translations: [Acute post-operative pain] Onset: 05-04-2025 Episodic Other non-epithelial cancer of skin (19 sources) History of malignant neoplasm of skin; Translations: [Personal history of other malignant neoplasm of skin] Onset: 04-11-2025 04-11-2025 Episodic Other screening for suspected conditions (not mental disorders or infectious disease) (20 sources) Other specified abnormal findings of blood chemistry; Translations: [Other abnormal blood chemistry] Onset: 04-28-2024 05-10-2024 Episodic Otitis media and related conditions (6 sources) Perforation of left tympanic membrane; Translations: [Unspecified perforation of tympanic membrane, left ear] Onset: 01-18-2025 01-18-2025 Episodic Pneumonia (except that caused by tuberculosis or sexually transmitted disease) (20 sources) Pneumonia; Translations: [Pneumonia, unspecified organism] Onset: 09-03-2019 Resolved: 09-04-2019 09-04-2019 Episodic Respiratory failure; insufficiency; arrest (adult) (7 sources) Respiratory failure; Translations: [Respiratory failure, unspecified, unspecified whether with hypoxia or hypercapnia] Onset: 01-01-2023 12-26-2022 Episodic Screening and history of mental health and substance abuse codes (20 sources) Tobacco use and exposure - finding; Translations: [Personal history of nicotine dependence] Onset: 04-11-2025 04-11-2025 Episodic Results Test Name Value Interpretation Reference Range Facility [facility] 08-10-2025 NUTRITION HNO ID: [id number] Author: ELIAZAR RUSSELL RD Service: Nutrition Therapy Author Type: Registered Dietitian Type: Nutrition Filed: 08/10/2025 11:38 Note Text: NUTRITION BRIEF NOTE SERVICE DATE: 08/10/2025 Care Plan: Recommend for home going Enteral nutrition TF Product Isosource 1.5 [place] Approved Secondary TF Product (Do Not Change) Jevity 1.5 TF Total mL per 24 hours 1320 Number of Liter Bags 1 TF Route GASTRO-JEJUNOSTOMY JEJUNAL PORT TF Goal Rate (mL/hr) 88 x 15 hrs TF Water Flush Amount (mL) 170 TF Water Flush Frequency Every 4 Hours Interval History: MNT Billing: $ Routine Care : 1 unit SIGNATURE: Eliazar Russell RD DATE: 08/10/2025 TIME: 11:34 AM [facility] 08-09-2025 CNPN [facility] CONSULT PROGon 08-09-2025 CONSULT PROG HNO ID: [id number] Author: YOSELYN HOFFMAN APRN.RECHARGER Service: Palliative Care Author Type: Nurse Practitioner Type: Consult Progress Note Filed: 08/09/2025 14:11 Note Text: PALLIATIVE MEDICINE CONSULT PROGRESS NOTE To contact the [place] palliative medicine service from 5p - 8a on weekdays and anytime during the weekend, please page [phone] SERVICE DATE: 08/08/2025 PATIENT NAME: Diana Thurston Subjective Primary Site of Disease/Medical Illness(es) Being Addressed: Weakness Fatigue/lethargy 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 No acute events overnight. Patient feeling well today, intermittent abdominal pain at PEG site and it states uncomfortable when boluses are placed in his feeding tube. Otherwise no other pain, no shortness of breath. Some nausea earlier today when he had to have a bowel movement. He acknowledges feeling much better. REVIEW OF SYSTEMS Modified ESAS ([place] Symptom Assessment Scale): Information Provided By: Patient Pain: Mild Nausea: None currently Loss of Appetite: N/A Constipation: None Shortness of Breath: None Drowsiness: N/A Tiredness: Mild Depression: N/A Anxiety: None How you feel overall: Good Other problem: N/A Objective PHYSICAL EXAMINATION Vital Signs: BP 146/76 Pulse 75 Temp 36.6 ?C (97.9 ?F) (Oral) Resp 16 Ht 167.6 cm (5' 6) Wt 83.6 kg (184 lb 4.9 oz) SpO2 96% BMI 29.75 kg/m? General Appearance: Elderly patient, sitting up in bed Skin: Normal warmth and Dry Resp: Unlabored respiratory effort and Normal excursion CV: No bilateral upper extremity edema GI: Nontender and Nondistended Psych: Alert, answers questions and follows command DATA Diagnostic tests and information reviewed for today's visit: Labs Image results Notes Discussions CBC, CMP, mag, phos IR, PT, primary, CM, nutrition Patient and [id number] Dasha Impression/Recommendation s Bower Lilia Cogar is a 80 year old male admitted on 08/06/2025 for fatigue, weakness, change in mental status. 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 Martínez and Dr. Ilan Simon -s/p left radical parotidectomy with sacrifice of facial nerve and left modified radical neck dissection followed by free facial flap and nerve graft 05/04/2025 -Started on chemotherapy and radiation- with last radiation treatment 08/04 and chemotherapy currently on hold after 3 treatments secondary to side effects. Failure to thrive in an adult Poor oral intake Weight loss Moderate protein calorie malnutrition - Secondary to above and cancer treatment - Was seeing a dietitian outpatient - 20 pound weight loss in the past 1 month - Nutrition therapy assessment 08/07/2025 with recommendation moderate protein calorie malnutrition - Speech evaluation 08/07 with suspected oropharyngeal dysphagia, concerns for esophageal dysphagia with recommendations n.p.o. - s/p IR guided GJ tube on 08/07 -tolerating tube feed Weakness - PT OT- recommending home Throat pain Oral candidiasis - extensive mucosal edema tongue, oropharynx. - Defer to primary Palliative Medicine Encounter Introduction to Palliative Medicine to patient, [id number] Dasha and [id number] Mitchel. Explained that we are a consulting service who sees patients with chronic or severe illness to assist with measures to help improve quality of life. We do this through talking about patient's wishes, their goals of care, working on symptom management and providing support. Serious Illness Conversation 08/08/2025 Please see Rosaline DUCKWORTH ACP note for full account, in brief: -Recovery oriented, hopes to go home soon -Agreeable to following palliative care outpatient, order placed -Code status discussion , would like Full Code. 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 - Patient states HCPOA at his home, encouraged him to bring it to his outpatient appointment-states it needs his daughter- Kayy 08/07/2025 Please see Rosaline DUCKWORTH ACP note for full account, in brief: - Patient does not want to pursue further chemotherapy. - Patient does want to continue radiation. He recommends is to continue ra (more content not included)... [facility] 08-09-[facility]25 NUTRITION HNO ID: [id number] Author: WAYNE KHAN RD Service: Nutrition Therapy Author Type: Registered Dietitian Type: Nutrition Filed: 08/09/2025 10:43 Note Text: NUTRITION THERAPY PROGRESS NOTE SERVICE DATE: 08/09/2025 SERVICE TIME: 9:30 am Nutrition Assessment: Recommended Malnutrition Diagnosis: Moderate Protein-Calorie Malnutrition (08/07/25 1017 : Wayne Khan RD) Care Plan: Nutrition support:Enteral Feed Collaborated DAVEY CORDOBA MD with and orders written. Reviewed current labs and physician progress notes. Monitor and Evaluation: Meet greater than 75% of estimated needs, Monitor tolerance to tube feeding Interval History: Cancer of base of tongue Cancer of parotid gland VA Intake History: Dosing Weight: 64 kg (141 lb 1.5 oz) Dosing Weight Type: [place] body weight Estimated kilocalorie needs: 7688-8341 Calorie Calculation Method: 25-30 kcals/kg Estimated protein needs (grams): 80-90 Grams protein determined by: 1.2 - 1.5 g/kg Diet Orders (From admission, onward) Start Ordered 08/09/25 1045 DIET TUBE FEED - CONTIN (NO TRAY) START NOW Question Answer Comment TF Product Isosource 1.5 [place] Approved Secondary TF Product (Do Not Change) Jevity 1.5 TF Total mL per 24 hours 1320 Number of Liter Bags 1 TF Route GASTRO-JEJUNOSTOMY JEJUNAL PORT TF Goal Rate (mL/hr) 55 TF Initial Rate (mL/hr) 20 TF Advance by (mL/hr) 10 TF Advance every (hrs) 12 TF Water Flush Amount (mL) 170 TF Water Flush Frequency Every 4 Hours FOR RDs ONLY Provider Collaborated With DAVEY CORDOBA 08/09/25 1036 08/08/25 1430 DIET TUBE FEED - CONTIN (NO TRAY) START NOW Question Answer Comment TF Product Isosource 1.5 [place] Approved Secondary TF Product (Do Not Change) Jevity 1.5 TF Total mL per 24 hours 1320 Number of Liter Bags 1 TF Route GASTRO-JEJUNOSTOMY JEJUNAL PORT TF Goal Rate (mL/hr) 55 TF Initial Rate (mL/hr) 20 TF Advance by (mL/hr) 10 TF Advance every (hrs) 4 TF Water Flush Amount (mL) 170 TF Water Flush Frequency Every 4 Hours 08/08/25 1426 Anthropometrics: Height: 167.6 cm (5' 6) Weight: 84 kg (185 lb 3 oz) Body mass index is 29.89 kg/m?. 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 Today's visit includes: patient and sister in-lawDasha TOPICS ADDRESSED: coping/support and assess for needs and symptoms CLINICAL ASSESSMENT: DONITA along with Yoselyn Hoffman CNP Palliative Care met with the pt and his sister in-law at bedside. The pt was sitting up in bed, awake and engaged. He was much more engaged today. He was telling jokes and smiling. He shared that he is feeling OK. He believes he is tolerating his TF well. He shared that hooking up the TF is similar to hooking up a tire to an air compressor. He did share that he has some pain at his PEG site when the TF is running. Pall Med encouraged him to use tylenol when he is having this pain and shared that this should get better with time. The pt is hopeful to be able to d/c home tomorrow and continue his cancer directed treatment. He is agreeable to [facility] Pall Med at Home following for support. INTERVENTIONS/REFERRALS TO BE PROVIDED: N/A PLAN: Pall Med to sign off at this time as goals are established, his symptoms are controlled and d/c is anticipated tomorrow. DONITA Huff Normal [facility] CBC panel Auto (Bld)on 08-08 Erythrocyte distribution width (RBC) [Ratio] 14.1 % Normal 11.5-15.0 [facility] Comment on above: Order Comment: Saira jade Type: BLOOD SPECIMENOrdering Facility: [facility] Address: [address] [place] [address] Performed By: #### 5 8410-2 ####G[facility] LABORATORYCLIA [id number] [address] [place] Hematocrit (Bld) [Volume fraction] 44.0 % Normal 39.0-51.0 [facility] Comment on above: Order Comment: Saira jade Type: BLOOD SPECIMENOrdering Facility: [facility] Address: [address] [place] [address] Performed By: #### 5 8410-2 ####GUSMAN LABORATORYCLIA [id number] [address] [place] Hemoglobin (Bld) [Mass/Vol] 14.9 g/dL Normal 13.0-17.0 [facility] Comment on above: Order Comment: Saira jade Type: BLOOD SPECIMENOrdering Facility: [facility] Address: [address] [place] [address] Performed By: #### 5 8410-2 ####GUSMAN LABORATORYCLIA [id number] [address] [place] MCH (RBC) [Entitic mass] 29.9 pg Normal 26.0-34.0 [facility] Comment on above: Order Comment: Laurai men Type: BLOOD SPECIMENOrdering Facility: [facility] Address: [address] [place] [address] Performed By: #### 5 8410-2 ####GUSMAN LABORATORYCLIA [id number] [address] MCHC (RBC) [Mass/Vol] 33.9 g/dL Normal 30.5-36.0 [facility] Comment on above: Order Comment: Speci men Type: BLOOD SPECIMENOrdering Facility: [facility] Address: [address] [place] [address] Performed By: #### 5 8410-2 ####GUSMAN LABORATORYCLIA [id number] [address] MCV (RBC) [Entitic vol] 88.2 fL Normal 80.0-100.0 [facility] Comment on above: Order Comment: Speci men Type: BLOOD SPECIMENOrdering Facility: [facility] Address: [address] [place] [address] Performed By: #### 5 8410-2 ####GUSMAN LABORATORYCLIA [id number] [address] Nucleated RBC (Bld) [#/Vol] 10*3/uL Normal <0.01 [facility] Comment on above: Order Comment: Speci men Type: BLOOD SPECIMENOrdering Facility: [facility] Address: [address] [place] [address] Performed By: #### 5 8410-2 ####GUSMAN LABORATORYCLIA [id number] [address] [place] Platelet mean volume (Bld) [Entitic vol] 9.0 fL Normal 9.0-12.7 [facility] Comment on above: Order Comment: Speci men Type: BLOOD SPECIMENOrdering Facility: [facility] Address: [address] [place] [address] Performed By: #### 5 8410-2 ####GUSMAN LABORATORYCLIA [id number] [address] [place] Platelets (Bld) [#/Vol] 128 10*3/uL Low 150-400 [facility] Comment on above: Order Comment: Speci men Type: BLOOD SPECIMENOrdering Facility: [facility] Address: [address] [place] [address] Performed By: #### 5 8410-2 ####GUSMAN LABORATORYCLIA [id number] [address] RBC (Bld) [#/Vol] 4.99 10*6/uL Normal 4.20-6.00 [facility] Comment on above: Order Comment: Speci men Type: BLOOD SPECIMENOrdering Facility: [facility] Address: [address] [place] [address] Performed By: #### 5 8410-2 ####GUSMAN LABORATORYCLIA [id number] [address] WBC (Bld) [#/Vol] 3.39 10*3/uL Low 3.70-11.00 [facility] Comment on above: Order Comment: Speci men Type: BLOOD SPECIMENOrdering Facility: [facility] Address: [address] [place] [address] Performed By: #### 5 8410-2 ####GUSMAN LABORATORYCLIA [id number] [address] Comprehensive metabolic 2000 panelon 08-08-2025 Albumin [Mass/Vol] 3.6 g/dL Low 3.9-4.9 [facility] Comment on above: Order Comment: Speci men Type: BLOOD SPECIMENOrdering Facility: [facility] Address: [address] [place] [address] Performed By: #### 2 4323-8, 14380-0, 2570-8, 2777-1 ####GUSMAN LABORATORYCLIA [id number] [address] ALP [Catalytic activity/Vol] 70 U/L Normal 38-113 [facility] Comment on above: Order Comment: Speci men Type: BLOOD SPECIMENOrdering Facility: [facility] Address: [address] [place] [address] Performed By: #### 2 4323-8, 15647-0, 2571-8, 2777-1 ####GUSMAN LABORATORYCLIA [id number] [place] [address] [place] ALT [Catalytic activity/Vol] 18 U/L Normal 10-54 [facility] Comment on above: Order Comment: Speci men Type: BLOOD SPECIMENOrdering Facility: [facility] Address: [address] [place] [address] Performed By: #### 2 4323-8, 40112-6, 2570-8, 277-1 ####GUSMAN LABORATORYCLIA [id number] [place] [address] [place] Anion gap [Moles/Vol] 12 mmol/L Normal 8-15 [facility] Comment on above: Order Comment: Speci men Type: BLOOD SPECIMENOrdering Facility: [facility] Address: [address] [place] [address] Performed By: #### 2 4323-8, 22374-7, 2570-8, 277- ####GUSMAN LABORATORYCLIA [id number] [place] [address] [place] AST [Catalytic activity/Vol] 20 U/L Normal 14-40 [facility] Comment on above: Order Comment: Speci men Type: BLOOD SPECIMENOrdering Facility: [facility] Address: [address] [place] [address] Performed By: #### 2 4323-8, 47058-0, 2570-8, 2777-1 ####GUSMAN LABORATORYCLIA [id number] [place] [id number] [place] Bilirubin [Mass/Vol] 0.2 mg/dL Normal 0.2-1.3 [facility] Comment on above: Order Comment: Speci men Type: BLOOD SPECIMENOrdering Facility: [facility] Address: [address] [place] [address] Performed By: #### 2 4323-8, 42879-5, 2570-8, 2777-1 ####GUSMAN LABORATORYCLIA [id number] [place] [address] [place] Calcium [Mass/Vol] 9.6 mg/dL Normal 8.5-10.2 [facility] Comment on above: Order Comment: Speci men Type: BLOOD SPECIMENOrdering Facility: [facility] Address: [address] [place] [address] Performed By: #### 2 4323-8, 76567-2, 2571-8, 2777-1 ####GUSMAN LABORATORYCLIA [id number] [place] [address] [place] Chloride [Moles/Vol] 100 mmol/L Normal 98-107 [facility] Comment on above: Order Comment: Speci men Type: BLOOD SPECIMENOrdering Facility: [facility] Address: [address] [place] [address] Performed By: #### 2 4323-8, 14427-1, 2570-8, 2777-1 ####CROWDER LABORATORYCLIA [id number] [place] [address] [place] CO2 [Moles/Vol] 28 mmol/L Normal 22-30 [facility] Comment on above: Order Comment: Speci men Type: BLOOD SPECIMENOrdering Facility: [facility] Address: [address] [place] [address] Performed By: #### 2 4323-8, 54465-6, 2570-8, 2777-1 ####CROWDER LABORATORYCLIA [id number] [place] [address] [place] Creatinine [Mass/Vol] 1.00 mg/dL Normal 0.73-1.22 [facility] Comment on above: Order Comment: Speci men Type: BLOOD SPECIMENOrdering Facility: [facility] Address: [address] [place] [address] Performed By: #### 2 4323-8, 04093-3, 2570-8, 2777-1 ####CROWDER LABORATORYCLIA [id number] [place] [address] [place] eGFRcr SerPlBld CKD-EPI 2020 77 mL/min/1.73m??? Normal >=60 [facility] Comment on above: Order Comment: Speci men Type: BLOOD SPECIMENOrdering Facility: [facility] Address: [address] [place] [address] Result Comment: Yesenia mated Glomerular Filtration Rate (eGFR) is calculated using the 2020 CKD-EPI creatinine equation. This equation utilizes serum creatinine, sex, and age as parameters. The creatinine assay has traceable calibration to isotope dilution-mass spectrometry. Refer to KDIGO guidelines for clinical interpretation. In patients with unstable renal function, e.g. those with acute kidney injury, the eGFR may not accurately reflect actual GFR. Performed By: #### 2 4323-8, 23219-6, 2571-04, 277- ####CROWDER LABORATORYCLIA [id number] [place] [id number] [place] Glucose [Mass/Vol] 125 mg/dL High 74-99 [facility] Comment on above: Order Comment: Saira jade Type: BLOOD SPECIMENOrdering Facility: [facility] Address: [address] [place] [address] Result Comment: The [place] Diabetes Association (ADA) provides guidance for cutoff values for fasting glucose and random glucose. The ADA defines fasting as no caloric intake for at least 8 hours. Fasting plasma glucose results between 100 to 125 mg/dL indicate increased risk for diabetes (prediabetes). Fasting plasma glucose results greater than or equal to 126 mg/dL meet the criteria for diagnosis of diabetes. In the absence of unequivocal hyperglycemia, results should be confirmed by repeat testing. In a patient with classic symptoms of hyperglycemia or hyperglycemic crisis, random plasma glucose results greater than or equal to 200 mg/dL meet the criteria for diagnosis of diabetes. Reference: Standards of Medical Care in Diabetes 2016, [place] [employer] Association. Diabetes Care. 2016.39(Suppl 1). Performed By: #### 2 4323-8, 14860-1, 2571-04, 277- ####CROWDER LABORATORYCLIA [id number] [place] [id number] [place] Potassium [Moles/Vol] 3.7 mmol/L Normal 3.7-5.1 [facility] Comment on above: Order Comment: Saira jade Type: BLOOD SPECIMENOrdering Facility: [facility] Address: [address] [place] [address] Performed By: #### 2 4323-8, 53608-7, 8, 277- ####CROWDER LABORATORYCLIA [id number] [place] [id number] [place] Protein [Mass/Vol] 6.5 g/dL Normal 6.3-8.0 [facility] Comment on above: Order Comment: Speci men Type: BLOOD SPECIMENOrdering Facility: [facility] Address: [address] [place] [address] Performed By: #### 2 4323-8, 53749-9, 257-8, 2777-1 ####CROWDER LABORATORYCLIA [id number] [place] [id number] [place] Sodium [Moles/Vol] 140 mmol/L Normal 136-144 [facility] Comment on above: Order Comment: Speci men Type: BLOOD SPECIMENOrdering Facility: [facility] Address: [address] [place] [address] Performed By: #### 2 4323-8, 41696-7, 2570-8, 2777-1 ####CROWDER LABORATORYCLIA [id number] [address] [place] [facility] Urea nitrogen [Mass/Vol] 24 mg/dL Normal 9-24 [facility] Comment on above: Order Comment: Speci men Type: BLOOD SPECIMENOrdering Facility: [facility] Address: [address] [place] [address] Performed By: #### 2 4323-8, 89404-3, 2570-8, 2777-1 ####CROWDER LABORATORYCLIA [id number] [place] [id number] [place] Magnesium SerPl-mCncon 08-08 Magnesium [Mass/Vol] 1.7 mg/dL Normal 1.7-2.3 [facility] Comment on above: Order Comment: Speci men Type: BLOOD SPECIMENOrdering Facility: [facility] Address: [address] [place] [address] Performed By: #### 2 4323-8, 46992-3, 2570-8, 2777-1 ####GUSMAN LABORATORYCLIA [id number] [place] [id number] [place] [facility] [place] NUTRITIONon 08-08-2025 NUTRITION HNO ID: [id number] Author: WAYNE KHAN RD Service: Nutrition Therapy Author Type: Registered Dietitian Type: Nutrition Filed: 08/08/2025 09:24 Note Text: NUTRITION THERAPY PROGRESS NOTE SERVICE DATE: 08/08/2025 SERVICE TIME: 9:00 am Nutrition Assessment: Recommended Malnutrition Diagnosis: Moderate Protein-Calorie Malnutrition (08/07/25 1017 : Wayne Khan RD) Care Plan: Enteral feed Recommendations if medically feasible : Isosource 1.5 Initiate 20 ml /hr Advance by 10 ml every 12 hours as tolerates to goal rate Goal rate Isosource 1.5 55 ml/hr to provide 1980 calories, 90 gram protein and 1008 ml free water Flush 170 ml every 4 hours SEE Phosphorus level today - repletion recommended Monitor and Evaluation: Meet greater than 75% of estimated needs Interval History: 08/07 procedure : Placement of percutaneous GJ tube Intake History: Dosing Weight: 64 kg (141 lb 1.5 oz) Dosing Weight Type: [place] body weight Estimated kilocalorie needs: 8235-3091 Calorie Calculation Method: 25-30 kcals/kg Estimated protein needs (grams): 80-90 Grams protein determined by: 1.2 - 1.5 g/kg Diet Orders (From admission, onward) Start Ordered 08/07/25 1645 DIET NPO START NOW Question: Feeding instructions for nursing Answer: May start tube feeds tomorrow if no abdominal pain or signs of peritonitis 08/07/25 1638 Anthropometrics: Height: 167.6 cm (5' 6) Weight: 83.6 kg (184 lb 4.9 oz) Body mass index is 29.75 kg/m?. Lines, Drains, and Airways Drain Duration External Collection Device 08/06/25 2030 [facility] 1 day GI/ Feeding 08/07/25 1629 [facility] Gastro-Jejunal Right Abdomen 18 Fr <1 day MNT Billing: $ Routine Care : 1 unit SIGNATURE: Wayne Khan RD PATIENT NAME: Diana Thurston DATE: August 08, 2025 TIME: 9:19 AM Normal [facility] Phosphate SerPl-mCncon 08-08 Phosphate [Mass/Vol] 2.6 mg/dL Low 2.7-4.8 [facility] Comment on above: Order Comment: Speci men Type: BLOOD SPECIMENOrdering Facility: [facility] Address: [address], [place] [address] Performed By: #### 2 4323-8, 05415-8, 2571-8, 2777-1 ####NASEEM LABORATORYIA [id number] [address] THERAPY NTon 08-08-2025 THERAPY NT HNO ID: [id number] Author: BARBIE SELF PTA Service: Physical Therapy Author Type: Electrical Control Assembler Type: Therapy (PT/OT/Speech/Resp) Filed: 08/08/2025 09:12 Note Text: ----- Attestation signed by Huang Carreon, PT at 08/08/2025 6:45 PM I reviewed and agree with the documentation corresponding to this therapy visit. SIGNATURE: Huang Carreon PT DATE: August 08, 2025 TIME: 6:45 PM ----- ----- Summary: PT Treat ----- Physical Therapy Treatment Summary SERVICE DATE: 08/08/2025 SERVICE TIME: 833 to 899 ROOM: NX-6G-5748-1 PT 6 Clicks Score: 24 DISCHARGE RECOMMENDATIONS Home Anticipated Discharge Needs: Physical Assist at Home, Supervision at Home Physical Assist at Home for: Cleaning, Laundry, Meals, Shopping, Transportation (PRN initially) Supervision at Home due to: Other: See Comment (initially for optimal safety) Recommended Discharge Equipment: No equipment needs anticipated ASSESSMENT Response to Therapy Interventions: Good Participation in Activities, On-Track to Achieve Discharge Goals pt tolerated session well. pt SBA for functional mobility. pt able to progress further during ambulation. pt safe with no AD during ambulation. pt with no LOB or dizziness noted throughout session. pt feels safe on stairs and declined reviewing. pt met all goals for PT. rec Home PT following hospital D/C. PRECAUTIONS Fall Risk, Lines/Tubes/Drains CURRENT HOSPITAL COURSE Pt presented with c/o weakness, fatigue, lethargy, poor intake and rapid weight loss. 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, s/p L parotis gland/right neck lymph node FNA, s/p Left radical parotidectomy, Left lateral T-bone resection, Left radical neck dissection, Left ALT, Left OTTT, Left temporalis sling, Left eyelid weight, Left CN V-to-VII transfer HOME LIVING Patient Lives With: Self/Alone Assistance Available: PRN (sister in law and brother live ~10 minutes away) Entry To Home: Stairs, Without Rail Number Of Stairs Into Home: 2 Number Of Stairs To Bed/Bath: 0 Tub/Shower Type: walk in shower Laundry: main level; pt manages Equipment Owned: Cane, Grab Bars- Shower PRIOR FUNCTIONAL LEVEL Within Functional Limits Information obtained from pt's sister in law per pt's request due to garbled speech. She reports pt is IND with all i/ADLS. +drives. Active/still mows lawn. (-) falls. SUBJECTIVE pt agreeable to PT, ok per RN to see THERAPY DIAGNOSIS No Skilled Need TREATMENT INTERVENTIONS Gait Training (92320), Therapeutic Activity (22035) Timed Code Treatment (minutes): 26 Skilled Treatment Time (minutes): 26 Therapeutic Activity (97902) Treatment Minutes: 11 $ Therapeutic Activity (18727) Billed Units: 1 unit Gait Training (75200) Treatment Minutes: 15 $ Gait Training (93631) Billed Units: 1 unit TRAINING AND EDUCATION PROVIDED Bed Mobility, Benefits of In-Hospital Mobility, Discharge Planning, Energy Conservation, Falls Prevention, Gait Pattern, Reduction of Deviations, Pain Neuroscience, Patient Exercise/Therapy Program Support Needs, Precautions/Restrictions, Transfers, Treatment Protocol, Sitting Balance, Role of Physical Therapy, Standing Balance THERAPEUTIC SKILLS USED Activity Dosing, Cues for Sequencing/Proper Technique for Activity, Cuing Tactile, Cuing Verbal, Cuing Visual, Management of Critical Lines, Tubes and/or Drains, Movement Facilitation, Postural Alignment Correction, Teach-Back for Education FUNCTIONAL STATUS Bed Mobility Supine To Sit: Stand By Assistance Sit to Supine: Stand By Assistance Scooting: Stand By Assistance Transfers Sit To Stand: Stand By Assistance Stand To Sit: Stand By Assistance Bed to Chair Gait Stand By Assistance, Additional Information reciprocating gait pattern, no LOB noted. pt with no AD. pt with good awareness of surroundings and no difficulty breathing throughout ambulation. Gait Device: None General Deviations/Observations: Simi decreased, Step length decreased Gait Distance (feet): 100' x 2 Stairs Additional Information pt verbalized understanding of stairs from last session. pt declined reviewing stairs and feels safe to go home. GOALS Patient will demonstrate progress with functional mobility to allow safe discharge to home with available support and/or physical assistance., Patient will demonstrate progress to optimize functional mobility, maximize activity tolerance and endurance to maximize function upon discharge. Transfer Supine to/from Sit (more content not included)... Normal [facility] Trigl Joyce-William 5 Triglyceride [Mass/Vol] 152 mg/dL High <150 [facility] Comment on above: Order Comment: Speci men Type: BLOOD SPECIMENOrdering Facility: [facility] Address: [address] [place] [address] Result Comment: <150 mg/dL, Normal 150-199 mg/dL, Borderline high 200-499 mg/dL, High >499 mg/dL, Very high Reference: 1. National Cholesterol Education Program ATP III Guideline At-A-Glance Quick Desk Reference: National Heart, Lung, and Blood [place]. National Institutes of Health. 2001: NIH Publication No. 01-3305. Performed By: #### 2 4323-8, 13980-1, 2571-8, 2777-1 ####CROWDER LABORATORYCLIA [id number] [place] [address] [facility] Triglyceride [Mass/Vol]on FASTING TIME A couple days. [facility] Comment on above: Order Comment: Speci men Type: BLOOD SPECIMENOrdering Facility: [facility] Address: [address] [place] [address] Performed By: #### 2 4323-8, 98755-1, 2571-8, 2777-1 ####CROWDER LABORATORYCLIA [id number] [place] [address] [facility] BRIEF OP NOTon 08-07-2025 BRIEF OP NOT HNO ID: [id number] Author: DELORES BYERS MD Service: Radiology Author Type: Physician Type: Brief Op Note Filed: 08/07/2025 16:24 Note Text: INTERVENTIONAL RADIOLOGY POST PROCEDURE NOTE DATE: 08/07/25 NAME: Diana Thurston LOG ID: [id number] Pre-Procedure Diagnosis: Tongue base squamous cell cancer. Post Procedure Diagnosis: Same. Supervisor [place]: Dr. Delores Byers Procedure: Image guided placement of percutaneous GJ tube. Anesthesia: Procedural Sedation Findings: Successful image guided placement of 18 Icelandic percutaneous gastrojejunostomy tube with tip in proximal jejunum. Plan to remain NPO overnight, may start tube feeds tomorrow if no abdominal pain or signs of peritonitis. Estimated Blood Loss: Minimal (Less Than 25 mL). Specimen: None Complications: None Full report with procedural details to follow and will become available under Imaging Reports. Please contact for any questions or concerns. SIGNATURE: Delores Byers MD PATIENT NAME: Diana Thurston DATE: August 07, 2025 TIME: 4:23 PM PAGER/CONTACT #: [facility] Bacteria Ur Culton 5 Bacteria identified Cx Nom (U) ORGANISM ID: 1 <10,000 CFU/ml Normal urogenital yancy Normal [facility] Comment on above: Performed By: #### 6 30-4 ####[facility] LABCLIA [id number] [address] CBC panel Auto (Bld)on 08-07 Erythrocyte distribution width (RBC) [Ratio] 13.7 % Normal 11.5-15.0 [facility] Comment on above: Order Comment: Speci men Type: BLOOD SPECIMENOrdering Facility: [facility] Address: [address] [place] [address] Performed By: #### 5 8410-2 ####GUSMAN LABORATORYCLIA [id number] [address] Hematocrit (Bld) [Volume fraction] 41.2 % Normal 39.0-51.0 [facility] Comment on above: Order Comment: Speci men Type: BLOOD SPECIMENOrdering Facility: [facility] Address: [address] [place] [address] Performed By: #### 5 8410-2 ####GUSMAN LABORATORYCLIA [id number] [address] Hemoglobin (Bld) [Mass/Vol] 14.1 g/dL Normal 13.0-17.0 [facility] Comment on above: Order Comment: Speci men Type: BLOOD SPECIMENOrdering Facility: [facility] Address: [address] [place] [address] Performed By: #### 5 8410-2 ####GUSMAN LABORATORYCLIA [id number] [address] MCH (RBC) [Entitic mass] 29.9 pg Normal 26.0-34.0 [facility] Comment on above: Order Comment: Speci men Type: BLOOD SPECIMENOrdering Facility: [facility] Address: [address] [place] [address] Performed By: #### 5 8410-2 ####GUSMAN LABORATORYCLIA [id number] [address] MCHC (RBC) [Mass/Vol] 34.2 g/dL Normal 30.5-36.0 [facility] Comment on above: Order Comment: Speci men Type: BLOOD SPECIMENOrdering Facility: [facility] Address: [facility] [place] [address] Performed By: #### 5 8410-2 ####GUSMAN LABORATORYCLIA [id number] [address] [place] MCV (RBC) [Entitic vol] 87.5 fL Normal 80.0-100.0 [facility] Comment on above: Order Comment: Speci men Type: BLOOD SPECIMENOrdering Facility: [facility] Address: [address] [place] [address] Performed By: #### 5 8410-2 ####GUSMAN LABORATORYCLIA [id number] [address] [place] Nucleated RBC (Bld) [#/Vol] 10*3/uL Normal <0.01 [facility] Comment on above: Order Comment: Speci men Type: BLOOD SPECIMENOrdering Facility: [facility] Address: [address] [place] [address] Performed By: #### 5 8410-2 ####GUSMAN LABORATORYCLIA [id number] [address] [place] [facility] Platelet mean volume (Bld) [Entitic vol] 9.3 fL Normal 9.0-12.7 [facility] Comment on above: Order Comment: Speci men Type: BLOOD SPECIMENOrdering Facility: [facility] Address: [address] [place] [address] Performed By: #### 5 8410-2 ####GUSMAN LABORATORYCLIA [id number] [place] [address] [place] Platelets (Bld) [#/Vol] 125 10*3/uL Low 150-400 [facility] Comment on above: Order Comment: Speci men Type: BLOOD SPECIMENOrdering Facility: [facility] Address: [address] [place] [address] Performed By: #### 5 8410-2 ####GUSMAN LABORATORYCLIA [id number] [address] [place] RBC (Bld) [#/Vol] 4.71 10*6/uL Normal 4.20-6.00 [facility] Comment on above: Order Comment: Speci men Type: BLOOD SPECIMENOrdering Facility: [facility] Address: [address] [place] [address] Performed By: #### 5 8410-2 ####GUSMAN LABORATORYCLIA [id number] [address] WBC (Bld) [#/Vol] 2.34 10*3/uL Low 3.70-11.00 [facility] Comment on above: Order Comment: Speci men Type: BLOOD SPECIMENOrdering Facility: [facility] Address: [address] [place] [address] Performed By: #### 5 8410-2 ####GUSMAN LABORATORYCLIA [id number] [address] CONSULTon 08-07-2025 CONSULT HNO ID: [id number] Author: KASSI LINN APRN.CNP Service: Gastroenterology Author Type: Nurse Practitioner Type: Consults Filed: 08/07/2025 18:49 Note Text: GI INITIAL CONSULT NOTE SERVICE DATE: 08/07/2025 SERVICE TIME: 1:25 PM REASON FOR CONSULT: Dysphagia-EGD/PEG PRIMARY CARE PHYSICIAN: Price Key DO Consultation requested by Dr. Byers for an opinion regarding dysphagia EGD/PEG. My final recommendations will be communicated back to the requesting physician by way of shared medical record or letter via [place] mail Subjective Mr. 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 His HPI was taken from his sister in law who's at bedside. She stated the patient wanted to quit chemotherapy. She went to check on him and noticed he wasn't eating for about 3 weeks (consecutively for 1 week). She presented him to the ED for further evaluation. In the ED his vitals were stable. His labs showed potassium 5.8, BUN 43, creatinine 1.40, CRP 2.4, and lactic acid 2.1. He was admitted for further evaluation. His sister had ~20 lbs weight loss in the past several weeks. He never had EGD or colonoscopy in the past. GI consulted for dysphagia-EGD with peg tube. 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 Had about 20lbs weight loss. Never had EGD or colonoscopy in the past. GI consulted for dysphagia-EGD with peg tube. # Dysphagia (POA: Yes) # Unintentional weight loss (POA: Yes) # H/o basal cell carcinoma (POA: Yes) Dysphagia to solids and liquids and sometimes unable to tolerate secretions ~20lbs unintentional weight loss Never had EGD in the past Patient stopped chemotherapy PLAN: - May need to consult IR for G tube vs surgical intervention due to significant swelling and patient unable to open mouth wide for endoscopy scope to pass. GI will sign off call with questions. 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 PAST SURGICAL HISTORY Procedure Laterality Date PAST SURGICAL HISTORY OF 1965 head surgery PAST SURGICAL HISTORY OF 02/07/2025 Left parotid gland/right neck lymph node FNA REMOVAL GALLBLADDER 2023 FAMILY HISTORY Problem Relation Age of Onset Heart Attack Father Cancer Sister Breast Cancer Sister Lung Cancer Sister Heart Attack Brother Heart Attack Brother Heart Attack Brother SOCIAL HISTORY[1] Prescriptions Prior to Admission[2] Current Facility-Administered Medications Medication Dose Route Frequency [Transfer Hold] carboxymethylcellulose sodium 2-5 drop (CELLUVISC) 2-5 drop LEFT EYE q 1 H PRN [Transfer Hold] White Petrolatum-Mineral Oil 1 application ophthalmic ointment (LACRI-LUBE) 1 application BOTH EYES PRN [Transfer Hold] enoxaparin 40 mg injection (LOVENOX) 40 mg SUBCUTANEOUS q 24 HR [Transfer Hold] NaCl 0.9% iv flush bag 20 mL INTRAVENOUS PRN [Transfer Hold] dextrose 5% in NaCl 0.9% iv infusion 75 mL/hr INTRAVENOUS CONTINUOUS [Transfer Hold] ondansetron (PF) 4 mg injection (ZOFRAN) 4 mg INTRAVENOUS q 6 H PRN [Transfer Hold] pantoprazole 40 mg injection (PROTONIX) 40 mg INTRAVENOUS DAILY (6 AM) [Transfer Hold] thiamine 200 mg injection 200 mg INTRAVENOUS DAILY Parenteral Nutrition - Adult INTRAVENOUS ONCE PN (2200 START) [Transfer Hold] dextrose 5% in NaCl 0.45% iv infusion 30-150 mL/hr INTRAVENOUS PRN [Transfer Hold] ceFAZolin iv piggyback 2 g in D5W (iso-osmotic) 100 mL (ANCEF) 2 g INTRAVENOUS ONCE Allergies As of Date: 08/06/2025 (No Known Allergies) Fully Assessed 08/06/2025 COMPLETE REVIEW OF SYSTEMS: Unable to access Objective PHYSICAL EXAM: Physical Exam Performed: GENERAL: Alert and oriented in no acute distress SKIN: Skin color, texture, turgor normal. No rashes or lesions. NOSE: Nares normal. Septum midline. OROPHARYNX: Unable to access due to edema LUNGS: Bilateral lobes with rhonchi CARDIAC: Normal S1 an (more content not included)... Normal [facility] CONSULT HNO ID: [id number] Author: YOSELYN HOFFMAN APRN.CNP Service: Palliative Care Author Type: Nurse Practitioner Type: Consults Filed: 08/07/2025 15:28 Note Text: PALLIATIVE MEDICINE INITIAL CONSULT To contact the [facility] palliative medicine service from 5p - 8a on weekdays and anytime during the weekend, please page [phone] SERVICE DATE: 08/07/2025 PATIENT NAME: Diana Thurston PALLIATIVE MEDICINE OUTPATIENT PROVIDER: No CURRENT ATTENDING PROVIDER: Davey Cordoba,* REFERRING PHYSICIAN: Deborah Kunz MD REASON FOR CONSULT/CHIEF CONSULT COMPLAINT: Serious Illness Conversation regarding change in mental status, weakness, fatigue, lethargy Primary Site of Disease/Medical Illness(es) Being Addressed: Weakness Fatigue/lethargy 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 Notably patient started on chemoradiation with last radiation treatment on 08/04, patient does not wish to undergo any further chemotherapy. Patient is interested in PEG tube placement. On assessment, Lilia is seen with his gkuuwv-ak-rdg Dasha and jdjouxi-bc-cwi Mitchel at the bedside. He shares he does not have any pain, no shortness of breath, no current nausea. Did note that he had nausea during chemotherapy treatments. His biggest concern and bother is his swallowing, he describes it as aggravating but not painful. 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 PAST SURGICAL HISTORY Procedure Laterality Date PAST SURGICAL HISTORY OF 1966 head surgery PAST SURGICAL HISTORY OF 02/07/2025 Left parotid gland/right neck lymph node FNA REMOVAL GALLBLADDER 2023 Current Facility-Administered Medications Medication Dose Route Frequency carboxymethylcellulose sodium 2-5 drop (CELLUVISC) 2-5 drop LEFT EYE q 1 H PRN White Petrolatum-Mineral Oil 1 application ophthalmic ointment (LACRI-LUBE) 1 application BOTH EYES PRN enoxaparin 40 mg injection (LOVENOX) 40 mg SUBCUTANEOUS q 24 HR NaCl 0.9% iv flush bag 20 mL INTRAVENOUS PRN dextrose 5% in NaCl 0.9% iv infusion 75 mL/hr INTRAVENOUS CONTINUOUS ondansetron (PF) 4 mg injection (ZOFRAN) 4 mg INTRAVENOUS q 6 H PRN pantoprazole 40 mg injection (PROTONIX) 40 mg INTRAVENOUS DAILY (6 AM) thiamine 200 mg injection 200 mg INTRAVENOUS DAILY ALLERGIES No Known Allergies SOCIAL HISTORY Support system daughter navneet Sultana, grandchildren, eomrjn-ew-utm, Dasha and nrgyppa-su-dqu, Mitchel Drug Use: Never Alcohol Use: Not Currently Tobacco Use: Types: Cigarettes REVIEW OF SYSTEMS Modified ESAS ([place] Symptom Assessment Scale): Information Provided By: Patient Pain: None Nausea: None Loss of Appetite: N/A Constipation: None Shortness of Breath: None Drowsiness: N/A Tiredness: Yes Depression: N/A Anxiety: None How you feel overall: Good Other problem: N/A Objective PHYSICAL EXAMINATION Vital Signs: BP 142/74 Pulse 65 Temp 36.4 ?C (97.6 ?F) (Oral) Resp 16 Ht 167.6 cm (5' 6) Wt 82.8 kg (182 lb 8.7 oz) SpO2 98% BMI 29.46 kg/m? General Appearance: Elderly patient, sitting up in bed Skin: Normal warmth and Dry, hyperpigmentation present on left cheek and neck Eyes: Symmetrical lids and No conjunctival injection HENT: Atraumatic external nose and ears Neck: Swelling present Resp: Unlabored respiratory effort and Normal excursion GI: Soft and Nontender Musculoskeletal: Normocephalic and No gross deformity Neuro: No myoclonus noted Psych: Alert and oriented, answers questions and follows command DATA Diagnostic tests and information reviewed for today's visit: Labs Image results Notes Discussions CBC, CMP, mag CT chest, CT neck, CT brain Outpatient oncology, ED, primary, general surgery, speech Patient, rsqutj-et-idr-Dasha, mkjqsgl-ro-opc-Mitchel Impression/Recommendation s Bower E Karena is a 80 year old male admitted on 08/06/2025 for fatigue, weakness, change in mental status. 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 Basal cell adenocarcinoma of th (more content not included)... 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 Started 07/03/2025 ( recently stopped chemo treatment d/t fatigue planned to continue radiation) . Other past history ex-cigarette smoker,HTN now off meds,BPH with nocturia,obesity BMI 30.67 and GERD other past surgical history cholecystectomy. Admitted because of poor intake , progressive worsening dysphagia with solids partially tolerating only soft solids then completely with all solids with food getting stuck and he has to cough repeatedly to get it out and since yesterday developed complete dysphagia to liquids and oral secretions and he needed suctioning of his secretions at the ER .Have been losing weight from 95.5 kg (210 lb 8 oz) on 07/03/2025 to 86.2 kg (190 lb) on admission ( about 20lbs). Apart from coughing up food following feeding, he denies persistent cough, hemoptysis, fever, chills,CP,Shortness of Breath, abdominal pain, urinary symptoms ,N/V/D. Last bowel movement yesterday was brown and formed . He lives alone, feels very weak. When he stands up his legs feel like they would give away but he usually waits for a few minutes before he starts to ambulate. He denies any falls nor any significant pain. He stopped his chemotherapy and did not get his last scheduled chemotherapy on due to side effect of anorexia and loss of sense of taste . He is currently getting on weekly radiation for both left parotid tumor and base of tongue lesion.Last treatment was Thursday08/04/25. He is also seeing a boat buffer plastic outpatient due to poor intake and rapid weight loss. Was asked by Dr Martínez to schedule an office visit to discuss PEG tube placement.Patient is interested in PEG tube feeding but him, daughter and family has questions about it and how long it is expected to stay in. At the ER blood pressure 123/76, pulse 98, respiratory rate 20, temperature 97.5, SpO2 96% on room air. LABS : CBC:Hemoglobin 17.1 ,otherwise unremarkable CMP:Calcium 10.6 (was 10.3 on 08/04/25),cr 1.4-1.14 (was 1.31 on 08/04/25) and (1.12 on 07/25/25) ,Na 136-131, BUN 43-41 ,Was 35 on 08/04/25 rest is unremarkable Lactate 2.1-1.9 Crp 2.4 Mag 2.3 CK 30 HST 14-14 Covid/flu/RSV :Negative EKG normal sinus rhythm. QTc 429 subtle T wave inversions in leads V4 of, V5 and V6 and leads to 3 aVF which is mild but was not present last EKG in March 2025. He was treated with IV dexamethasone 10mg x1 for edema, 1 L of LR before admission. 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 PAST SURGICAL HISTORY Procedure Laterality Date PAST SURGICAL HISTORY OF 1966 head surgery PAST SURGICAL HISTORY OF 02/07/2025 Left parotid gland/right neck lymph node FNA REMOVAL GALLBLADDER 2023 FAMILY HISTORY Problem Relation Age of Onset Heart Attack Father Cancer Sister Breast Cancer Sister Lung Cancer Sister Heart Attack Brother Heart Attack Brother Heart Attack Brother SOCIAL HISTORY[1] Prescriptions Prior to Admission[2] Current Facility-Administered Medications Medication Dose Route Frequency carboxymethylcellulose sodium 2-5 drop (CELLUVISC) 2-5 drop LEFT EYE q 1 H PRN White Petrolatum-Mineral Oil 1 application ophthalmic ointment (LACRI-LUBE) 1 application BOTH EYES PRN enoxaparin 40 mg injection (LOVENOX) 40 mg SUBCUTANEOUS q 24 HR NaCl 0.9% iv flush bag 20 mL INTRAVENOUS PRN dextrose 5% in NaCl 0.9% iv infusion 75 mL/hr INTRAVENOUS CONTINUOUS ondansetron (PF) 4 mg injection (ZOFRAN) 4 mg INTRAVENOUS q 6 H PRN pantoprazole 40 mg injection (PROTONIX) 40 mg INTRAVENOUS DAILY (6 AM) thiamine 200 mg injection 200 mg INTRAVENOUS DAILY Allergies As of Date: 08/06/2025 (No Known Allergies) Fully Assessed 08/06/2025 COMPLETE REVIEW OF SYSTEMS: PAIN ASSESSMENT: Currently negative for any pain. GENERAL: Positive for generalized weakness, rapid weight loss but no fever no chills. HEENT: Positive for hearing loss L>R, Negative for frequent or significan (more content not included)... Normal [facility] Comprehensive metabolic 2000 panelon 08-07-2025 Albumin [Mass/Vol] 3.5 g/dL Low 3.9-4.9 [facility] Comment on above: Order Comment: Speci men Type: BLOOD SPECIMENOrdering Facility: [facility] Address: [address] [place] [address] Performed By: #### 2 4323-8, 99207-0, 2776- ####G[facility] LABORATORYCLIA [id number] [place] [address] [place] ALP [Catalytic activity/Vol] 74 U/L Normal 38-113 [facility] Comment on above: Order Comment: Speci men Type: BLOOD SPECIMENOrdering Facility: [facility] Address: [address] [place] [address] Performed By: #### 2 4323-8, , 2776-09 ####GUSMAN LABORATORYCLIA [id number] [place] [address] [place] ALT [Catalytic activity/Vol] 23 U/L Normal 10-54 [facility] Comment on above: Order Comment: Speci men Type: BLOOD SPECIMENOrdering Facility: [facility] Address: [address] [place] [address] Performed By: #### 2 4323-8, , 2776-09 ####GUSMAN LABORATORYCLIA [id number] [place] [id number] [place] Anion gap [Moles/Vol] 14 mmol/L Normal 8-15 [facility] Comment on above: Order Comment: Speci men Type: BLOOD SPECIMENOrdering Facility: [facility] Address: [address] [place] [address] Performed By: #### 2 4323-8, , 2776-1 ####GUSMAN LABORATORYCLIA [id number] [place] [address] [place] AST [Catalytic activity/Vol] 24 U/L Normal 14-40 [facility] Comment on above: Order Comment: Speci men Type: BLOOD SPECIMENOrdering Facility: [facility] Address: [facility] [place] [id number] Performed By: #### 2 4323-8, , 2776-09 ####GUSMAN LABORATORYCLIA [id number] [place] [address] [place] Bilirubin [Mass/Vol] 0.3 mg/dL Normal 0.2-1.3 [facility] Comment on above: Order Comment: Speci men Type: BLOOD SPECIMENOrdering Facility: [facility] Address: [address] [place] [address] Performed By: #### 2 4323-8, , 2776-09 ####GUSMAN LABORATORYCLIA [id number] [place] [address] [place] Calcium [Mass/Vol] 9.5 mg/dL Normal 8.5-10.2 [facility] Comment on above: Order Comment: Speci men Type: BLOOD SPECIMENOrdering Facility: [facility] Address: [facility] [place] [address] Performed By: #### 2 4323-8, , 2776-09 ####GUSMAN LABORATORYCLIA [id number] [place] [address] [place] Chloride [Moles/Vol] 98 mmol/L Normal 98-107 [facility] Comment on above: Order Comment: Speci men Type: BLOOD SPECIMENOrdering Facility: [facility] Address: [address] [facility] [place] [address] Performed By: #### 2 4323-8, , 2776-09 ####GUSMAN LABORATORYCLIA [id number] [place] [address] [place] CO2 [Moles/Vol] 25 mmol/L Normal 22-30 [facility] Comment on above: Order Comment: Speci men Type: BLOOD SPECIMENOrdering Facility: [facility] Address: [address] [place] [address] Performed By: #### 2 4323-8, , 2776-09 ####GUSMAN LABORATORYCLIA [id number] [place] [address] [place] Creatinine [Mass/Vol] 1.09 mg/dL Normal 0.73-1.22 [facility] Comment on above: Order Comment: Saira jade Type: BLOOD SPECIMENOrdering Facility: [facility] Address: [address] [place] [address] Performed By: #### 2 4323-8, , 2776-09 ####GUSMAN LABORATORYCLIA [id number] [place] [address] [place] eGFRcr SerPlBld CKD-EPI 2020 69 mL/min/1.73m??? Normal >=60 [facility] Comment on above: Order Comment: Saira jade Type: BLOOD SPECIMENOrdering Facility: [facility] Address: [address] [place] [address] Result Comment: Yesenia mated Glomerular Filtration Rate (eGFR) is calculated using the 2020 CKD-EPI creatinine equation. This equation utilizes serum creatinine, sex, and age as parameters. The creatinine assay has traceable calibration to isotope dilution-mass spectrometry. Refer to KDIGO guidelines for clinical interpretation. In patients with unstable renal function, e.g. those with acute kidney injury, the eGFR may not accurately reflect actual GFR. Performed By: #### 2 4323-8, , 2776-09 ####GUSMAN LABORATORYCLIA [id number] [place] [address] [place] Glucose [Mass/Vol] 165 mg/dL High 74-99 [facility] Comment on above: Order Comment: Saira jade Type: BLOOD SPECIMENOrdering Facility: [facility] Address: [address] [place] [address] Result Comment: The [place] Diabetes Association (ADA) provides guidance for cutoff values for fasting glucose and random glucose. The ADA defines fasting as no caloric intake for at least 8 hours. Fasting plasma glucose results between 100 to 125 mg/dL indicate increased risk for diabetes (prediabetes). Fasting plasma glucose results greater than or equal to 126 mg/dL meet the criteria for diagnosis of diabetes. In the absence of unequivocal hyperglycemia, results should be confirmed by repeat testing. In a patient with classic symptoms of hyperglycemia or hyperglycemic crisis, random plasma glucose results greater than or equal to 200 mg/dL meet the criteria for diagnosis of diabetes. Reference: Standards of Medical Care in Diabetes 2016, [place] [employer] Association. Diabetes Care. 2016.39(Suppl 1). Performed By: #### 2 4323-8, , 2776-09 ####GUSMAN LABORATORYCLIA [id number] [place] [address] [place] Potassium [Moles/Vol] 3.7 mmol/L Normal 3.7-5.1 [facility] Comment on above: Order Comment: Speci men Type: BLOOD SPECIMENOrdering Facility: [facility] Address: [address] [place] [address] Performed By: #### 2 432-8, , 2776-09 ####GUSMAN LABORATORYCLIA [id number] [place] [address] [place] Protein [Mass/Vol] 6.4 g/dL Normal 6.3-8.0 [facility] Comment on above: Order Comment: Speci men Type: BLOOD SPECIMENOrdering Facility: [facility] Address: [address] [place] [address] Performed By: #### 2 4323-8, , 2776-09 ####GUSMAN LABORATORYCLIA [id number] [place] [address] [place] Sodium [Moles/Vol] 137 mmol/L Normal 136-144 [facility] Comment on above: Order Comment: Speci men Type: BLOOD SPECIMENOrdering Facility: [facility] Address: [address] [place] [address] Performed By: #### 2 4323-8, , 2776-09 ####GUSMAN LABORATORYCLIA [id number] [place] [address] [place] Urea nitrogen [Mass/Vol] 37 mg/dL High 9-24 [facility] Comment on above: Order Comment: Speci men Type: BLOOD SPECIMENOrdering Facility: [facility] Address: [address] [place] [address] Performed By: #### 2 4323-8, 49873-3, 2777-1 ####CROW[facility] LABORATORYCLIA [id number] [place] [address] [facility] [place] ECG COMPLETEon 08-07-2025 ECG COMPLETE Ventricular Rate : 5 7 BPM Atrial Rate : 57 BPM P-R Interval : 162 ms QRS Duration : 82 ms Q-T Interval : 468 ms QTC Calculation(Bazett) : 455 ms Calculated P [place] : 60 degrees Calculated R [place] : 10 degrees Calculated T [place] : 22 degrees SINUS BRADYCARDIA LOW VOLTAGE QRS Confirmed by ARACELI ISIDRO MD ([id number]) on 08/08/2025 8:36:26 PM NAME : DIANA THURSTON PID : [id number] : 1945 Gender : Male Race : ORD : [id number] Procedure Date : Aug 07 2025 09:36:40 Edit Date : Aug 08 2025 20:36:28 Diagnosis: SINUS BRADYCARDIA LOW VOLTAGE QRS Confirmed by ARACELI ISIDRO MD ([id number]) on 08/08/2025 8:36:26 PM Test Reason : Arrhythmia Location : 4 : 2S 0215 Overread By : ARACELI ISIDRO MD Edited By : ARACELI ISIDRO MD Referred By : , Acquired by : TYLER JOHNSON [facility] IR GASTROSTOMY PERCon 2024 IR GASTROSTOMY PERC * * *Final Report* * * DATE OF EXAM: Aug 07 2025 4:26PM [facility] 6530 - IR GASTROSTOMY PERC / PROCEDURE REASON: Dehydration [E86.0] * * * * Physician Interpretation * * * * PROCEDURE: ULTRASOUND AND FLUOROSCOPIC GUIDED PERCUTANEOUS GASTROJEJUNOSTOMY TUBE PLACEMENT DATE: 08/07/2025 4:26 PM INDICATION: Tongue base squamous cell cancer. ENCOUNTER: Initial COMPARISON: CT examination of the abdomen and pelvis with contrast dated 06/02/2024. PET/CT examination dated 02/14/2025. TECHNIQUE/FINDINGS: The procedure was performed in the VIR Suite following informed consent and a Time Out. Informed consent was obtained from the patient. The patient was evaluated for the safety and appropriateness of conscious sedation and the Moderate Sedation Record was completed. The patient was sedated with intravenous Fentanyl and Versed administered by the radiology nurses. Please refer to nursing notes for medication dosages. The patient's vital signs were monitored during the procedure by the radiology nurses. Total intraservice time (monitoring for moderate sedation) was 42 minutes. Sedation start time-15:38, sedation end time-16:20 Patient monitoring: Supervised observer Utilizing fluoroscopic guidance, after applying viscous lidocaine, a combination of 5 Icelandic catheter and Glidewire were advanced via the nares, through the esophagus and into the gastric lumen with fluoroscopic guidance. Air was injected to confirm appropriate intraluminal positioning. Ultrasound examination was performed to identify the liver border. The liver border was marked at the skin site. Ultrasound images were saved in place in the PACS system. The epigastric area was then prepped using all elements of maximal sterile barrier technique (cap, mask, sterile gown, sterile gloves, a large sterile sheet, hand hygiene and cutaneous antisepsis). The stomach was insufflated with air via the indwelling nasogastric catheter. Fluoroscopic examination was then performed to ensure adequate percutaneous window to the stomach. Fluoroscopic images were saved in the PACS system. Skin site for percutaneous gastrostomy placement was marked. 2% lidocaine was injected for local anesthesia. Using fluoroscopic guidance, 2 T-fasteners were inserted into the gastric lumen and secured to the anterior abdominal wall. Following this, percutaneous access in the stomach was then obtained with 19-gauge needle. A Amplatz stiff guidewire was was then advanced into the gastric lumen. Over the wire, a 5 Icelandic vascular sheath was placed. Combination of 5 Icelandic angled catheter and stiff Glidewire were advanced into the proximal jejunum. Catheter and sheath were then removed. Following sequential dilation, a 22 Icelandic peel-away sheath was placed and a 18 Icelandic AMT balloon retention, 45 cm length gastrojejunostomy tube was advanced via the peel-away sheath into the gastric lumen with tip of the gastrojejunostomy tube at the proximal jejunum. The retention balloon was then filled with dilute contrast to ensure appropriate positioning. Contrast was injected via the gastrostomy and jejunostomy ports to ensure appropriate positioning of the gastrojejunostomy tube. Sterile dressings were applied. No immediate complication was noted. Fluoroscopic Radiation Summary: Fluoro time: 9:04 min:sec Plane A, Air Kerma: 49.3 mGy Single fluoroscopic image was obtained and placed in the PACS system. FINDINGS: Successful image guided placement of percutaneous gastrojejunostomy tube with tip of the tube within the proximal jejunum. IMPRESSION: Successful placement of a 18 Icelandic percutaneous gastrojejunostomy tube, as described. Plan for patient to remain nothing by mouth overnight and to start tube feeds tomorrow if no clinical signs of peritonitis. T-fasteners can be removed in 14 days. Optical Glass Sawyer: RUBY Transcribe Date/Time: Aug 08 2025 8:28A Dictated by : DELORES BYERS MD This examination was interpreted and the report reviewed and electronically signed by: DELORES BYERS MD on Aug 08 2025 8:33AM EST [id number] Normal [facility] Magnesium SerPl-mCncon 08-07 Magnesium [Mass/Vol] 2.0 mg/dL Normal 1.7-2.3 [facility] Comment on above: Order Comment: Speci men Type: BLOOD SPECIMENOrdering Facility: [facility] Address: [address] [place] [address] Performed By: #### 2 4323-8, 85888-1, 2777-1 ####CROWDER LABORATORYCLIA [id number] [address] NUTRITIONon 08-07-2025 NUTRITION HNO ID: [id number] Author: WAYNE KHAN RD Service: Nutrition Therapy Author Type: Registered Dietitian Type: Nutrition Filed: 08/07/2025 13:26 Note Text: NUTRITION THERAPY INITIAL ASSESSMENT SERVICE DATE: 08/07/2025 SERVICE TIME: Start Time: 0800 Nutrition Assessment: Recommended Malnutrition Diagnosis: Moderate Protein-Calorie Malnutrition In the context of: Chronic Illness or Injury Based on: Unintentional Weight Loss, Insufficient Energy Intake Care Plan: Monitor clinical findings with a goal for nutrition support and /or to advance diet as appropriate. Enteral feed Recommendations if medically feasible : Isosource 1.5 Initiate 20 ml /hr Advance by 10 ml every 12 hours as tolerates to goal rate Goal rate Isosource 1.5 55 ml/hr to provide 1980 calories, 90 gram protein and 1008 ml free water Flush 170 ml every 4 hours Monitor and Evaluation: Meet greater than 75% of estimated needs HPI: Cancer of base of tongue Cancer of parotid gland [facility] Nutrition Support: TPN . TPN order pended. Pharmacy notified. Reviewed Labs and Physician Progress Notes. See Davey Cordoba MD regarding not able to place PEG Intake History: Nutrition Intake Prior to Admission: Less than 75% estimated energy needs greater than or equal to 1 month Dosing Weight: 64 kg (141 lb 1.5 oz) Dosing Weight Type: [place] body weight Estimated kilocalorie needs: 6703-7287 Calorie Calculation Method: 25-30 kcals/kg Estimated protein needs (grams): 80-90 Grams protein determined by: 1.2 - 1.5 g/kg Diet Orders (From admission, onward) Start Ordered 08/06/252114 DIET NPO START NOW 08/06/252105 Anthropometrics: Height: 167.6 cm (5' 6) Weight: 82.8 kg (182 lb 8.7 oz) Usual Weight: 94 kg (207 lb 3.7 oz) 02/19 Body mass index is 29.46 kg/m?. Weight change percentage over time: 13% weight loss past 6 months Weight Change: Clinically significant weight loss Physical Exam: Reason NFPE not performed: Potential for discomfort Edema/Ascites: No edema (per physician notes) GI Symptoms: Swallowing problems, Anorexia Functional Status: Unable to assess Potential Signs of Inflammation: Chronic condition, Hyperglycemia, Hypoalbuminemia Lines, Drains, and Airways Drain Duration External Collection Device 08/06/252029 [facility] <1 day MNT Billing: $ Initial Assessment: 1 unit Time Spent (mins): 8 SIGNATURE: Wayne Khan RD PATIENT NAME: Diana Thurston DATE: August 07, 2025 TIME: 10:24 AM Normal [facility] PT panel Coag (PPP)on 2024 INR Coag (PPP) [Relative time] 1.2 {INR} Normal 0.9-1.3 [facility] Comment on above: Order Comment: Speci men Type: BLOOD SPECIMENOrdering Facility: [facility] Address: [address] [place] [id number] Result Comment: Mehreen min K Antagonist (VKA) Therapeutic Range: INR 2 to 3 (Target INR of 2.5) Note: For patients treated with VKA drugs, such as warfarin, the [place] [employer] 2012 Guideline recommends a therapeutic INR range of 2 to 3 (target INR of 2.5). This recommendation includes high-risk patients with antiphospholipid syndrome with previous arterial or venous thromboembolism, current-generation mechanical or bioprosthetic aortic heart valve replacement. Note: Patients with mechanical aortic valve replacement and additional risk factors for thromboembolic events (atrial fibrillation, previous thromboembolism, LV dysfunction, hypercoagulable conditions) or an older generation mechanical AVR (i.e., ball in-Cage) or any mechanical MVR should have a INR therapeutic range of 2.5 to 3.5 (target INR of 3). Candelaria GH, et al. Chest 2012, 141:7S-47S Kristin RA, et al. [facility] 2017, 70: 252-289 Performed By: #### 3 4528-0 ####CROWDER LABORATORYCLIA [id number] [place] [address] [place] PT Coag (PPP) [Time] 12.2 s Normal 9.7-13.0 [facility] Comment on above: Order Comment: Saira jade Type: BLOOD SPECIMENOrdering Facility: [facility] Address: [address] [place] [address] Performed By: #### 3 4528-0 ####CROWDER LABORATORYCLIA [id number] [place] [address] [facility] [place] Phosphate SerPl-mCncon 08-07 Phosphate [Mass/Vol] 3.6 mg/dL Normal 2.7-4.8 [facility] Comment on above: Order Comment: Saira jade Type: BLOOD SPECIMENOrdering Facility: [facility] Address: [address] [place] [address] Performed By: #### 2 4323-8, 25272-0, 2777-1 ####CROWDER LABORATORYCLIA [id number] [place] [id number] [place] THERAPY NTon 08-07-2025 THERAPY NT HNO ID: [id number] Author: HUANG CARREON, PT Service: Physical Therapy Author Type: Physical Therapist Type: Therapy (PT/OT/Speech/Resp) Filed: 08/07/2025 14:23 Note Text: ----- Summary: PT eval ----- Physical Therapy Evaluation Summary SERVICE DATE: 08/07/2025 SERVICE TIME: 1346 to 1406 ROOM: [id number]- (P13) PT 6 Clicks Score: 24 DISCHARGE RECOMMENDATIONS Home Anticipated Discharge Needs: Physical Assist at Home, Supervision at Home Physical Assist at Home for: Cleaning, Laundry, Meals, Shopping, Transportation (PRN initially) Supervision at Home due to: Other: See Comment (initially for optimal safety) Recommended Discharge Equipment: No equipment needs anticipated ASSESSMENT Response to Therapy Interventions: Good Participation in Activities, On-Track to Achieve Discharge Goals Pt functioning close to baseline, will see for one additional visit after procedure to ensure mobility remains the same. Pt is AANDO x 3, follows cues appropriately, slighlty dififcult to understand due to garbled speech. PRECAUTIONS Fall Risk, Lines/Tubes/Drains CURRENT HOSPITAL COURSE Pt presented with c/o weakness, fatigue, lethargy, poor intake and rapid weight loss. 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, s/p L parotis gland/right neck lymph node FNA, s/p Left radical parotidectomy, Left lateral T-bone resection, Left radical neck dissection, Left ALT, Left OTTT, Left temporalis sling, Left eyelid weight, Left CN V-to-VII transfer HOME LIVING Patient Lives With: Self/Alone Assistance Available: PRN (sister in law and brother live ~10 minutes away) Entry To Home: Stairs, Without Rail Number Of Stairs Into Home: 2 Number Of Stairs To Bed/Bath: 0 Tub/Shower Type: walk in shower Laundry: main level; pt manages Equipment Owned: Cane, Grab Bars- Shower PRIOR FUNCTIONAL LEVEL Within Functional Limits Information obtained from pt's sister in law per pt's request due to garbled speech. She reports pt is IND with all i/ADLS. +drives. Active/still mows lawn. (-) falls. SUBJECTIVE Pt agreeable to PT, ok per nursing to treat. THERAPY DIAGNOSIS No Skilled Need TREATMENT INTERVENTIONS Evaluation Skilled Treatment Time (minutes): 15 TRAINING AND EDUCATION PROVIDED Discharge Planning THERAPEUTIC SKILLS USED Cuing Verbal, Cuing Visual FUNCTIONAL STATUS Bed Mobility Supine To Sit: Stand By Assistance Sit to Supine: Stand By Assistance Scooting: Stand By Assistance Transfers Sit To Stand: Stand By Assistance Stand To Sit: Stand By Assistance Bed to Chair Gait Stand By Assistance REciprocating pattern, steady throughout Gait Device: None General Deviations/Observations: Lateral sway increased Gait Distance (feet): 160 Stairs Stand By Assistance Stairs Device: (none) Number of Stairs: 2 reciprocating pattern GOALS Patient will demonstrate progress with functional mobility to allow safe discharge to home with available support and/or physical assistance., Patient will demonstrate progress to optimize functional mobility, maximize activity tolerance and endurance to maximize function upon discharge. Transfer Supine to/from Sit with: Stand By Assistance Transfer Sit to/from Stand with: Stand By Assistance Ambulate with: Stand By Assistance Distance: 250 Ambulate Up and Down Steps with: Stand By Assistance Number of Steps: 2 Device: (LRAD if needed) Rehab Potential: Good Good Rehab Potential Due To: Current objective clinical presentation, Good motivation Progress Toward Goals: Progressing as expected ACUTE CARE TREATMENT PLAN PT Frequency: One Additional Visit Treatment Interventions: Balance Training, Functional Mobility Training Plan for Next Visit: Continue per POC SIGNATURE: Huang Carreon PT PATIENT NAME: Diana Thurston DATE: August 07, 2025 TIME: 2:23 PM [facility] THERAPY NT HNO ID: [id number] Author: ANABELL AARON, CCC-SEARCH MARKETING COORDINATOR Service: Speech/Swallow Author Type: Speech Language Pathologist Type: Therapy (PT/OT/Speech/Resp) Filed: 08/07/2025 11:48 Note Text: Speech Therapy Clinical Swallow Evaluation SERVICE DATE: 08/07/2025 SERVICE TIME: 1051 to 1123 ROOM: [id number] IMPRESSION Swallow Deficits Identified / Suspected: -Oropharyngeal dysphagia, -Concern for esophageal dysphagia RECOMMENDATIONS Diet Recommendations NPO with alternative means of nutrition Swallow Strategy Recommendations Rigid Oral Hygiene Nursing Recommendations Routine Rigid Oral Hygiene Instrumental Swallow Study Recommendations Modified Barium Swallow Study (MBSS) ? A modified barium swallowing exam (fluoroscopic study) may be indicated to thoroughly evaluate the oral and pharyngeal phase of the swallow, which cannot be substantiated through a clinical swallowing evaluation only. Through further diagnostic testing a definitive diagnosis / identification of the patient's current swallowing function and recommended treatment plan can be established. -concern for successful participation based on bed side symptoms and overall suspicions of overt dysphagia Recommended Consults Esophagram, GI ? 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 Reason for Speech Therapy Consult: Difficulty with PO intake; Decreased PO intake; Unexpected weight loss of 20lbs over the last month; Dysphagia Relevant Past Medical History: Base of Tongue CA; GERD; Bladder CA; HLD; HTN; TANGIRNAQ; Metastasis to Cervical Lymph Node HOME ENVIRONMENT / PRIOR FUNCTIONAL LEVEL Prior Functional Level: Required Assistance Patient Lives With: Self/Alone Assistance Required With: Safety, Self Care Prior Swallowing Function/Diet Textures: Pureed IDDSI Level 4, Thin Liquids IDDSI Level 0 SUBJECTIVE Nursing clears patient for today's clinical swallowing assessment; patient's family is at bedside offering support and assistance with medical history; pt is receptive to todays assessment and is able to actively participate; THERAPY DIAGNOSIS Dysphagia, unspecified TREATMENT INTERVENTIONS Clinical Swallow Evaluation (76959), Dysphagia Therapy (17175) Skilled Treatment Time (minutes): 32 Clinical Swallowing assessment completed to determine the patient's current swallowing skills and potential need for additional diagnostics and/or therapeutic intervention. TRAINING AND EDUCATION PROVIDED IN Dysphagia Management, Results and Recommendations of Session, Caregiver Education THERAPEUTIC SKILLS USED Education on role of discipline / importance of activity, Instruction in self-monitoring / self-assessment, Family / caregiver counseling / training, Teach-back for confirmation of education provided OBJECTIVE Current Status Oral Hygiene: Clear, dry oral cavity, Thick dried secretions throughout mouth Dentition: Miscellaneous Missing Teeth (retains uper dentures however reports cannot use at this time) Current Feeding Method: IV Current Diet Textures: NPO Current Level Of Communication: Verbal, Dysarthria (speech is difficult to comprehend to the unfamiliar listener; repetition is beneficial) Current Management Of Secretions: Requires suctioning, Suspect poor management of pharyngeal secretions, Able to complete volitional cough, Weak cough, Description of secretions (use of Yankaur at bedside by the patient) Frequency Of Suctioning: PRN (as determined by the patient) Description of Secretions: Thick, Tenuous Oral Motor Exam: Within Functional Limits Except Labial Assessment: Poor labial seal, Generalized weakness Lingual Assessment: Generalized weakness, Reduced sensory awareness, Xerostomia SWALLOW ASSESSMENT Position Of Patient During Assessment: Upright In Bed Feeding Method: SEARCH MARKETING COORDINATOR Fed Patient Consistencies Presented: Ice Chips (Fragmented X1) Ice Chips Oral Phase: Bolus Holding, Suspected Reduced Oral Control, Impaired A-P Transfer Ice Chips Pharyngeal Phase: Suspect Absent Swallow Response to Swallow Interventions: - lingual movements prohibit bolus manipulation of fragmented ice chip; - pt admits to an increased need for use of oral and pharyngeal suctioning; - admits to increased difficulty in managing pharyngeal secretions; - unable to elicit a pharygneal clearing strong enough for a controlled expectorant; -admits to not being able to elicit a strong effortful swallo (more content not included)... [facility] THERAPY NT HNO ID: [id number] Author: SANDRA TENA OT/L Service: Occupational Therapy Author Type: Occupational Therapist Type: Therapy (PT/OT/Speech/Resp) Filed: 08/07/2025 11:33 Note Text: ----- Summary: OT Evaluation ----- Occupational Therapy Evaluation Summary SERVICE DATE: 08/07/2025 SERVICE TIME: 1032 to 1051 ROOM: [place] [address] OT 6 Clicks Score: 23 DISCHARGE RECOMMENDATIONS Home Recommended Discharge Disposition Comments: pt is near his baseline with ADLs, functional mobility and transfers. Anticipate safe discharge home with no further skilled OT needs and assistance from family prn for IADL management Anticipated Discharge Needs: Physical Assist at Home, Supervision at Home Physical Assist at Home for: Cleaning, Laundry, Meals, Shopping, Transportation (prn from family initially) Supervision at Home due to: Other: See Comment (initially for optimal safety) Recommended Discharge Equipment: No equipment needs anticipated ASSESSMENT Response to Therapy Interventions: Good Participation in Activities, On-Track to Achieve Discharge Goals pt is near his baseline with ADLs, functional mobility and transfers. Garbled speech - per RN difficulty swallowing his own secretions (suction at bedside). Pt currently requires no more than CGA for all activity/self cares. Anticipate safe discharge home with no further skilled OT needs and assistance from family prn for IADL management PRECAUTIONS Fall Risk, Lines/Tubes/Drains CURRENT HOSPITAL COURSE Pt presented with c/o weakness, fatigue, lethargy, poor intake and rapid weight loss. 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, s/p L parotis gland/right neck lymph node FNA, s/p Left radical parotidectomy, Left lateral T-bone resection, Left radical neck dissection, Left ALT, Left OTTT, Left temporalis sling, Left eyelid weight, Left CN V-to-VII transfer HOME LIVING Patient Lives With: Self/Alone Assistance Available: PRN (sister in law and brother live ~10 minutes away) Entry To Home: Stairs, With Rail Number Of Stairs Into Home: 3 Number Of Stairs To Bed/Bath: 0 Tub/Shower Type: walk in shower Laundry: main level; pt manages Equipment Owned: Cane, Grab Bars- Shower PRIOR FUNCTIONAL LEVEL Within Functional Limits Information obtained from pt's sister in law per pt's request due to garbled speech. She reports pt is IND with all i/ADLS. +drives. Active/still mows lawn. (-) falls. Baseline Cognition: Oriented to self, Oriented to place, Oriented to time, Oriented to situation SUBJECTIVE RN cleared to work with pt. Pt pleasant and agreeable to this session. Pt politely requesting for this OT to obtain home environment/PLOF from pt's [id number]-weu (present at evaluation) due to garbled speech. COGNITION Communication Deficits: (garbled speech) Responsiveness: Alert, Awake Follows Commands: 3-step Commands THERAPY DIAGNOSIS Reduced mobility-other, Decreased activities of daily living (ADL) TREATMENT INTERVENTIONS Evaluation Skilled Treatment Time (minutes): 19 TRAINING AND EDUCATION PROVIDED Bed Mobility, Benefits of In-Hospital Mobility, Discharge Planning, Functional Mobility Involving ADLs, Identification of Systems of Support, Lower Extremity Dressing, Positioning, Role of Occupational Therapy, Safety/Judgment, Sitting Balance to Improve [place] with ADLs/Self-Care, Standing Balance to Improve [place] with ADLs/Self-Care, Transfer - Sit to Stand, Treatment Protocol THERAPEUTIC SKILLS USED Cuing Tactile, Cuing Verbal, Facilitation of Joint Range of Motion, Management of Critical Lines, Tubes and/or Drains, Physical Assist, Therapeutic Use of Self FUNCTIONAL STATUS / per clinical judgement Activities of Daily Living Assist Level Additional Information Feeding Independent Grooming Stand By Assistance Bathing Upper Body Stand By Assistance Bathing Lower Body Contact Guard Assistance Dressing Upper Body Stand By Assistance Dressing Lower Body Contact Guard Assistance, Additional Information pt able to doff/don socks seated EOB with minimally increased time and effort to complete. Anticipate CGA for optimal safety with standing components Toileting Stand By Assistance Mobility Assist Level Additional Information Bed Mobility Supine To Sit: Stand By Assistance, Additional Information flat bed, no rail, exit to R to simulate home set up Sit To Supine: Stand By Assistance, Additional Information Scooting: Stand By Assistance;Additional Information from R Forward/retro at EOB Sit to Stand Contact Guard Assistance, Additional Information from EOB, no AD Stand to Sit Stand By Assistance, Additional In (more content not included)... Normal [facility] URINALYSIS, REFLEX MICROSCOP ICon 08-07-2025 Bacteria LM.HPF (Urine sed) [#/Area] Few Abnormal None Seen [facility] Comment on above: Order Comment: Speci men Type: URINE SPECIMENOrdering Facility: [facility] Address: [address] [place] [address] Performed By: #### L [id number] ####GUSMAN LABORATORYCLIA [id number] [address] Bilirubin Ql (U) 2+ Abnormal Negative [facility] Comment on above: Order Comment: Speci men Type: URINE SPECIMENOrdering Facility: [facility] Address: [address] [place] [address] Result Comment: Sugg est correlation with clinical findings and serum bilirubin if clinically indicated. Performed By: #### L [id number] ####GUSMAN LABORATORYCLIA [id number] [address] Clarity (Unsp spec) Clear Normal Clear [facility] Comment on above: Order Comment: Speci men Type: URINE SPECIMENOrdering Facility: [facility] Address: [address] [place] [address] Performed By: #### L [id number] ####GUSMAN LABORATORYCLIA [id number] [address] [place] Color (U) Yellow Normal Yellow [facility] Comment on above: Order Comment: Speci men Type: URINE SPECIMENOrdering Facility: [facility] Address: [address] [place] [address] Performed By: #### L [id number] ####GUSMAN LABORATORYCLIA [id number] [address] Epithelial cells LM.HPF (Urine sed) [#/Area] Few Normal [facility] Comment on above: Order Comment: Speci men Type: URINE SPECIMENOrdering Facility: [facility] Address: [address] [place] [address] Performed By: #### L [id number] ####GUSMAN LABORATORYCLIA [id number] [address] [place] Glucose Test strip (U) [Mass/Vol] Negative Normal Negative [facility] Comment on above: Order Comment: Speci men Type: URINE SPECIMENOrdering Facility: [facility] Address: [address] [place] [address] Performed By: #### L [id number] ####GUSMAN LABORATORYCLIA [id number] [address] Hemoglobin Ql (U) Negative Normal Negative [facility] Comment on above: Order Comment: Speci men Type: URINE SPECIMENOrdering Facility: [facility] Address: [address] [place] [address] Performed By: #### L [id number] ####GUSMAN LABORATORYCLIA [id number] [address] [place] Hyaline casts (Urine sed) [#/Area] 1-3 /LPF Abnormal 0 /LPF [facility] Comment on above: Order Comment: Speci men Type: URINE SPECIMENOrdering Facility: [facility] Address: [address] [place] [address] Performed By: #### L [id number] ####GUSMAN LABORATORYCLIA [id number] [address] Ketones Ql (U) 3+ Abnormal Negative [facility] Comment on above: Order Comment: Speci men Type: URINE SPECIMENOrdering Facility: [facility] Address: [address] [place] [address] Performed By: #### L [id number] ####GUSMAN LABORATORYCLIA [id number] [address] Leukocyte esterase Test strip Ql (U) Negative Normal Negative [facility] Comment on above: Order Comment: Speci men Type: URINE SPECIMENOrdering Facility: [facility] Address: [address] [place] [address] Performed By: #### L [id number] ####GUSMAN LABORATORYCLIA [id number] [address] Nitrite Ql (U) Negative Normal Negative [facility] Comment on above: Order Comment: Speci men Type: URINE SPECIMENOrdering Facility: [facility] Address: [address] [place] [address] Performed By: #### L [id number] ####GUSMAN LABORATORYCLIA [id number] [address] pH (U) 5.5 [pH] Normal 5.0-8.0 [facility] Comment on above: Order Comment: Speci men Type: URINE SPECIMENOrdering Facility: [facility] Address: [address] [place] [address] Performed By: #### L [id number] ####GUSMAN LABORATORYCLIA [id number] [address] [place] Protein (U) [Mass/Vol] Trace Abnormal Negative [facility] Comment on above: Order Comment: Speci men Type: URINE SPECIMENOrdering Facility: [facility] Address: [address] [place] [address] Performed By: #### L [id number] ####GUSMAN LABORATORYCLIA [id number] [place] [address] [place] RBC LM.HPF (Urine sed) [#/Area] 0-3 /HPF Normal 0-3 /HPF [facility] Comment on above: Order Comment: Speci men Type: URINE SPECIMENOrdering Facility: [facility] Address: [address] [place] [address] Performed By: #### L [id number] ####GUSMAN LABORATORYCLIA [id number] [address] Specific gravity (U) [Rel density] 1.010 Normal 1.005-1.030 [facility] Comment on above: Order Comment: Speci men Type: URINE SPECIMENOrdering Facility: [facility] Address: [address] [place] [address] Performed By: #### L [id number] ####GUSMAN LABORATORYCLIA [id number] [address] [place] Urobilinogen Ql (U) 0.2 EU/dL Normal 0.2-1.0 EU/dL [facility] Comment on above: Order Comment: Speci men Type: URINE SPECIMENOrdering Facility: [facility] Address: [address] [place] [address] Performed By: #### L [id number] ####GUSMAN LABORATORYCLIA [id number] [place] [address] [place] WBC LM.HPF (Urine sed) [#/Area] 0-5 /HPF Normal 0-5 /HPF [facility] Comment on above: Order Comment: Speci men Type: URINE SPECIMENOrdering Facility: [facility] Address: [address] [place], [place] [address] Performed By: #### L [id number] ####GUSMAN LABORATORYCLIA [id number] [place] [id number] [place] ALLIED HEALTHon 08-06-2025 ALLIED HEALTH HNO ID: [id number] Author: BARBIE LUIS RT(R) Service: ? Author Type: Infrastructure Security Architect Type: Allied Health Filed: 08/06/2025 15:50 Note Text: Radiology Service Progress Note PATIENT NAME: Diana Thurston DATE OF SERVICE: August 06, 2025 TIME: 3:49 PM PATIENT IDENTITY VERIFICATION COMPLETED USING TWO (2) IDENTIFIERS: Name and Date of confirmed by identification band. FALL SCREENING: Has the patient had 2 falls in the last year or 1 fall with injury or currently using an Ambulatory Assistive Device (Walker, Cane, Wheelchair, Crutches, etc.)? Emergency Room Patient: Screened in ED PATIENT GENDER DATA: Assigned male at PATIENT RELEVANT IMPLANT DATA REVIEWED: Not Applicable PATIENT PRESENTS WITH AN IMPLANTABLE OR ATTACHED BREAKER HAND: No RADIOLOGY DEPARTMENT: General X-ray: Exam(s) Completed: Chest X-Ray PERIPHERAL IV DATA: Not applicable SIGNED BY: RT Katherine(R) August 06, 2025 3:49 PM Normal [facility] CBC W Auto Differential pane l (Bld)on 08-06-2025 Basophils (Bld) [#/Vol] 0.03 10*3/uL Normal <0.11 [facility] Comment on above: Order Comment: Speci men Type: BLOOD SPECIMENOrdering Facility: [facility] Address: [address] [place] [address] Performed By: #### 5 7021-8 ####GUSMAN LABORATORYCLIA [id number] [address] [place] Basophils/100 WBC (Bld) 0.6 % Normal [facility] Comment on above: Order Comment: Speci men Type: BLOOD SPECIMENOrdering Facility: [facility] Address: [address] [place] [address] Performed By: #### 5 7021-8 ####GUSMAN LABORATORYCLIA [id number] [address] [place] Differential cell count method Nom (Bld) Auto Normal [facility] Comment on above: Order Comment: Speci men Type: BLOOD SPECIMENOrdering Facility: [facility] Address: [address] [place] [address] Performed By: #### 5 7021-8 ####GUSMAN LABORATORYCLIA [id number] [place] [address] [place] Eosinophils (Bld) [#/Vol] 0.07 10*3/uL Normal <0.46 [facility] Comment on above: Order Comment: Speci men Type: BLOOD SPECIMENOrdering Facility: [facility] Address: [address] [place] [address] Performed By: #### 5 7021-8 ####GUSMAN LABORATORYCLIA [id number] [address] [place] Eosinophils/100 WBC (Bld) 1.3 % Normal [facility] Comment on above: Order Comment: Speci men Type: BLOOD SPECIMENOrdering Facility: [facility] Address: [address] [place] [address] Performed By: #### 5 7021-8 ####GUSMAN LABORATORYCLIA [id number] [address] [place] Erythrocyte distribution width (RBC) [Ratio] 14.2 % Normal 11.5-15.0 [facility] Comment on above: Order Comment: Speci men Type: BLOOD SPECIMENOrdering Facility: [facility] Address: [address] [place] [address] Performed By: #### 5 7021-8 ####GUSMAN LABORATORYCLIA [id number] [address] [place] Hematocrit (Bld) [Volume fraction] 50.7 % Normal 39.0-51.0 [facility] Comment on above: Order Comment: Speci men Type: BLOOD SPECIMENOrdering Facility: [facility] Address: [address] [place] [address] Performed By: #### 5 7021-8 ####GUSMAN LABORATORYCLIA [id number] [place] [address] [place] Hemoglobin (Bld) [Mass/Vol] 17.1 g/dL High 13.0-17.0 [facility] Comment on above: Order Comment: Speci men Type: BLOOD SPECIMENOrdering Facility: [facility] Address: [address] [place] [address] Performed By: #### 5 7021-8 ####GUSMAN LABORATORYCLIA [id number] [place] [address] [place] Immature granulocytes (Bld) [#/Vol] 10*3/uL Normal <0.10 [facility] Comment on above: Order Comment: Speci men Type: BLOOD SPECIMENOrdering Facility: [facility] Address: [address] [place] [address] Performed By: #### 5 7021-8 ####GUSMAN LABORATORYCLIA [id number] [address] [place] Immature granulocytes/100 WBC (Bld) 0.2 % Normal [facility] Comment on above: Order Comment: Speci men Type: BLOOD SPECIMENOrdering Facility: [facility] Address: [address] [place] [address] Performed By: #### 5 7021-8 ####GUSMAN LABORATORYCLIA [id number] [place] [address] [place] Lymphocytes (Bld) [#/Vol] 1.05 10*3/uL Normal 1.00-4.00 [facility] Comment on above: Order Comment: Speci men Type: BLOOD SPECIMENOrdering Facility: [facility] Address: [address] [place] [address] Performed By: #### 5 7021-8 ####GUSMAN LABORATORYCLIA [id number] [address] [place] Lymphocytes/100 WBC (Bld) 20.0 % Normal [facility] Comment on above: Order Comment: Speci men Type: BLOOD SPECIMENOrdering Facility: [facility] Address: [address] [place] [address] Performed By: #### 5 7021-8 ####GUSMAN LABORATORYCLIA [id number] [address] MCH (RBC) [Entitic mass] 29.7 pg Normal 26.0-34.0 [facility] Comment on above: Order Comment: Speci men Type: BLOOD SPECIMENOrdering Facility: [facility] Address: [address] [place] [address] Performed By: #### 5 7021-8 ####GUSMAN LABORATORYCLIA [id number] [address] MCHC (RBC) [Mass/Vol] 33.7 g/dL Normal 30.5-36.0 [facility] Comment on above: Order Comment: Speci men Type: BLOOD SPECIMENOrdering Facility: [facility] Address: [address] [place] [address] Performed By: #### 5 7021-8 ####GUSMAN LABORATORYCLIA [id number] [address] MCV (RBC) [Entitic vol] 88.2 fL Normal 80.0-100.0 [facility] Comment on above: Order Comment: Speci men Type: BLOOD SPECIMENOrdering Facility: [facility] Address: [address] [place] [address] Performed By: #### 5 7021-8 ####GUSMAN LABORATORYCLIA [id number] [address] Monocytes (Bld) [#/Vol] 0.78 10*3/uL Normal <0.87 [facility] Comment on above: Order Comment: Speci men Type: BLOOD SPECIMENOrdering Facility: [facility] Address: [address] [place] [address] Performed By: #### 5 7021-8 ####GUSMAN LABORATORYCLIA [id number] [address] Monocytes/100 WBC (Bld) 14.9 % Normal [facility] Comment on above: Order Comment: Speci men Type: BLOOD SPECIMENOrdering Facility: [facility] Address: [address] [place] [address] Performed By: #### 5 7021-8 ####GUSMAN LABORATORYCLIA [id number] [place] [address] [place] Neutrophils (Bld) [#/Vol] 3.31 10*3/uL Normal 1.45-7.50 [facility] Comment on above: Order Comment: Speci men Type: BLOOD SPECIMENOrdering Facility: [facility] Address: [address] [place] [address] Performed By: #### 5 7021-8 ####GUSMAN LABORATORYCLIA [id number] [place] [address] [place] Neutrophils/100 WBC (Bld) 63.0 % Normal [facility] Comment on above: Order Comment: Speci men Type: BLOOD SPECIMENOrdering Facility: [facility] Address: [address] [place] [address] Performed By: #### 5 7021-8 ####GUSMAN LABORATORYCLIA [id number] [place] [address] [place] Nucleated RBC (Bld) [#/Vol] 10*3/uL Normal <0.01 [facility] Comment on above: Order Comment: Speci men Type: BLOOD SPECIMENOrdering Facility: [facility] Address: [address] [place] [address] Performed By: #### 5 7021-8 ####GUSMAN LABORATORYCLIA [id number] [place] [address] [place] Nucleated RBC/100 WBC (Bld) [Ratio] 0.0 /100 WBC Normal [facility] Comment on above: Order Comment: Speci men Type: BLOOD SPECIMENOrdering Facility: [facility] Address: [address] [place] [address] Performed By: #### 5 7021-8 ####GUSMAN LABORATORYCLIA [id number] [place] [address] [place] Platelet mean volume (Bld) [Entitic vol] 9.0 fL Normal 9.0-12.7 [facility] Comment on above: Order Comment: Speci men Type: BLOOD SPECIMENOrdering Facility: [facility] Address: [address] [place] [address] Performed By: #### 5 7021-8 ####GUSMAN LABORATORYCLIA [id number] [address] Platelets (Bld) [#/Vol] 158 10*3/uL Normal 150-400 [facility] Comment on above: Order Comment: Speci men Type: BLOOD SPECIMENOrdering Facility: [facility] Address: [address] [place] [address] Performed By: #### 5 7021-8 ####GUSMAN LABORATORYCLIA [id number] [place] [address] [place] RBC (Bld) [#/Vol] 5.75 10*6/uL Normal 4.20-6.00 [facility] Comment on above: Order Comment: Speci men Type: BLOOD SPECIMENOrdering Facility: [facility] Address: [address] [place] [address] Performed By: #### 5 7021-8 ####GUSMAN LABORATORYCLIA [id number] [address] OF [facility] WBC (Bld) [#/Vol] 5.25 10*3/uL Normal 3.70-11.00 [facility] Comment on above: Order Comment: Speci men Type: BLOOD SPECIMENOrdering Facility: [facility] Address: [address] [place] [address] Performed By: #### 5 7021-8 ####GUSMAN LABORATORYCLIA [id number] [address] CK SerPl-cCncon 08-06-2025 CK [Catalytic activity/Vol] 30 U/L Low 51-298 [facility] Comment on above: Order Comment: Speci men Type: BLOOD SPECIMENOrdering Facility: [facility] Address: [address] [place] [address] Performed By: #### 1 9123-9, 2157-6, 40089-5, 1988-01, [id number] ####CROWDER LABORATORYCLIA [id number] [place] [address] [place] CRP SerPl-mCncon 08-06-2025 CRP [Mass/Vol] 2.4 mg/dL High <0.9 [facility] Comment on above: Order Comment: Speci men Type: BLOOD SPECIMENOrdering Facility: [facility] Address: [facility] [place] [address] Performed By: #### 1 9123-9, 2157-6, 44795-2, 1988-01, [id number] ####CROWDER LABORATORYCLIA [id number] [place] [address] [place] BRAIN WO IVCONon 08-06-20 CT BRAIN WO IVCON * * *Final Report* * * DATE OF EXAM: Aug 06 2025 5:24PM [facility] [place] BRAIN WO IVCON / PROCEDURE REASON: Mental status change, unknown cause * * * * Physician Interpretation * * * * CT NECK SOFT TISSUE W IVCON, CT BRAIN WO IVCON CLINICAL HISTORY: 1. 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 2. 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 Status post radiation therapy and chemotherapy. Presenting with weakness, altered mental status, difficulty eating and drinking. TECHNIQUE: Serial axial images without IV contrast were obtained from the vertex to the foramen magnum. MQ: CTBWO_3 A series of contiguous helical scans were performed from the skull base to the aortic arch with intravenous contrast. Supplemental: N/A Contrast: Omnipaque 350. Contrast Dose: 100 cc Route of Administration: IV CT Radiation dose: Integrated Dose-length product (DLP) for this visit = 2844 mGy*cm. CT Dose Reduction Employed: Automated exposure control(AEC) and iterative recon COMPARISON: CT neck tissue 02/02/2025, PET/CT 02/14/2025 RESULT: CT BRAIN: Post-operative change: Left frontal craniectomy and cranioplasty with metallic plate. Extensive streak artifact from the metallic plate obscures the anterior and superior portions of the brain. Postoperative findings of left mastoidectomy with overlying fat graft. Acute change: No evidence of an acute infarct or other acute parenchymal process within constraints of this exam. Hemorrhage: No evidence of acute intracranial hemorrhage. Mass Lesion / Mass Effect: There is no evidence of an intracranial mass or extraaxial fluid collection. No significant mass effect. Parenchyma: There is mild generalized volume loss. Ventricles: The ventricles are within normal limits of size and configuration for age. Paranasal sinuses and skull base: The visualized paranasal sinuses are grossly clear. The skull base and imaged soft tissues are unremarkable. CT NECK: Localizer images: Not available Postoperative/Treatment Change: Interval resection of the large infiltrative hyperattenuating mass involving the left parotid space and left mastoid bone. Extensive postoperative findings from left parotidectomy and mastoidectomy with surgical clips and flap reconstruction along the left fat graft. No findings of new or recurrent soft tissue mass in the left parotid resection. Aerodigestive tract: Mild mucosal edema and thickening in the nasopharynx and oropharynx, which may be from radiation treatment changes. There is edema involving the uvula. No significant narrowing of the oral pharyngeal or nasopharyngeal airway. However, there is marked edema with thick nodular enhancement along the pharyngeal mucosal space involving the hypopharynx and tongue base with edema involving the epiglottis. Decreased confluent enhancing mass along the tongue base and preepiglottic fat but with blurring of the soft tissue planes, edema and enhancement, likely reflecting treatment related changes from radiation therapy. Persistent nodular enhancement along the left tongue base measuring approximately 1.0 x 1.6 cm (series 7, image 79). There is effacement of the vallecula, bilateral piriform sinuses from diffuse mucosal edema. Mild narrowing of the supraglottic airway. The infraglottic trachea is patent. Major salivary glands: There is atrophy of the right submandibular and parotid glands. The right submandibular and parotid spaces are within normal. Postoperative findings from resection of the left submandibular and parotid glands. Thyroid gland: Normal. Lymph Nodes: No cervical lymphadenopathy by size criteria. Postoperative findings from left cervical lymph node dissection. Carotid/Parapharyngeal/Re tropharyngeal Spaces: Patent extracranial carotid systems and internal jugular veins bilaterally. Orbits, Face and Skull Base: Paranasal sinuses, mastoid air cells, and middle ear cavities are clear. Otherwise normal. Imaged intracranial contents: Left Eyelid weight. Cervical spine and remaining osseous structures: No osteolytic or osteoblastic process. Moderate cervical spondylosis. Lung apices: No consolidation or mass. Other: Not applicable. IMPRESSION: Postoperative findings from left frontal craniectomy and cranioplasty with metallic plate. There is extensive streak artifact from the metallic plate which obscures portions of the intracranial contents. Within these constraints, no clear findings of an acute intracranial process. Extensive postoperative findings from left parotidectomy and mastoidectomy with resection of previously seen left parotid and mastoid mass. No findings of r (more content not included)... Normal [facility] CT CHEST WO IVCONon 08-06-20 CT CHEST WO IVCON * * *Final Report* * * DATE OF EXAM: Aug 06 2025 5:24PM [facility] [place] - CT CHEST WO IVCON / PROCEDURE REASON: Aspiration * * * * Physician Interpretation * * * * EXAMINATION: CHEST CT WITHOUT CONTRAST CLINICAL HISTORY: Patient presents to ED with CC of altered mental status, weakness, fatigue, lethargy. Patient has difficulty eating and drinking due to throat based cancer for which he has been receiving chemotherapy and radiation since June. Patient opens eyes to nam Aspiration Technique: Spiral CT acquisition of the chest from the thoracic inlet to the upper abdomen without contrast. MQ: CTCWO_6 CT Radiation dose: Integrated Dose-length product (DLP) for this visit = 2844 mGy*cm CT Dose Reduction Employed: Automated exposure control(AEC) and iterative recon Comparison: 05/20/2025 CT chest RESULT: Lung parenchyma, airways, and pleural: Emphysematous changes. Stable pulmonary nodules. For example: 6 mm nodule right lower lobe adjacent to the diaphragm (series 306 image 173). No new or enlarging pulmonary nodule. Lower neck, lymph nodes, and mediastinum: The imaged thyroid gland is normal. No lymphadenopathy in the supraclavicular, axillary, mediastinal, or hilar regions. Small hiatal hernia. Heart, pericardium, and thoracic vessels: No pericardial effusion. Atherosclerotic calcification of the thoracic aorta and coronary arteries. Bones and soft tissues: Remote healed fractures of the right scapula and several right ribs. Degenerative changes of the thoracic spine. Upper abdomen: Pneumobilia. Heat Reader (topogram) images: No additional findings. IMPRESSION: No CT evidence of acute abnormality. _ Emphysematous changes. Stable pulmonary nodules. No new or enlarging nodule. _ Optical Glass Sawyer: PSCB Transcribe Date/Time: Aug 06 2025 6:51P Dictated by : YE HOUSTON MD This examination was interpreted and the report reviewed and electronically signed by: YE HOUSTON MD on Aug 06 2025 6:58PM EST [id number] [facility] NECK SOFT TISSUE W IVCONo n 08-06-2025 CT NECK SOFT TISSUE W IVCON * * *Final Report* * * DATE OF EXAM: Aug 06 2025 5:24PM [facility] [place] [address] - CT NECK SOFT TISSUE W IVCON / PROCEDURE REASON: Airway swelling * * * * Physician Interpretation * * * * CT NECK SOFT TISSUE W IVCON, CT BRAIN WO IVCON CLINICAL HISTORY: 1. 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 2. 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 Status post radiation therapy and chemotherapy. Presenting with weakness, altered mental status, difficulty eating and drinking. TECHNIQUE: Serial axial images without IV contrast were obtained from the vertex to the foramen magnum. MQ: CTBWO_3 A series of contiguous helical scans were performed from the skull base to the aortic arch with intravenous contrast. Supplemental: N/A Contrast: Omnipaque 350. Contrast Dose: 100 cc Route of Administration: IV CT Radiation dose: Integrated Dose-length product (DLP) for this visit = 2844 mGy*cm. CT Dose Reduction Employed: Automated exposure control(AEC) and iterative recon COMPARISON: CT neck tissue 02/02/2025, PET/CT 02/14/2025 RESULT: CT BRAIN: Post-operative change: Left frontal craniectomy and cranioplasty with metallic plate. Extensive streak artifact from the metallic plate obscures the anterior and superior portions of the brain. Postoperative findings of left mastoidectomy with overlying fat graft. Acute change: No evidence of an acute infarct or other acute parenchymal process within constraints of this exam. Hemorrhage: No evidence of acute intracranial hemorrhage. Mass Lesion / Mass Effect: There is no evidence of an intracranial mass or extraaxial fluid collection. No significant mass effect. Parenchyma: There is mild generalized volume loss. Ventricles: The ventricles are within normal limits of size and configuration for age. Paranasal sinuses and skull base: The visualized paranasal sinuses are grossly clear. The skull base and imaged soft tissues are unremarkable. CT NECK: Localizer images: Not available Postoperative/Treatment Change: Interval resection of the large infiltrative hyperattenuating mass involving the left parotid space and left mastoid bone. Extensive postoperative findings from left parotidectomy and mastoidectomy with surgical clips and flap reconstruction along the left fat graft. No findings of new or recurrent soft tissue mass in the left parotid resection. Aerodigestive tract: Mild mucosal edema and thickening in the nasopharynx and oropharynx, which may be from radiation treatment changes. There is edema involving the uvula. No significant narrowing of the oral pharyngeal or nasopharyngeal airway. However, there is marked edema with thick nodular enhancement along the pharyngeal mucosal space involving the hypopharynx and tongue base with edema involving the epiglottis. Decreased confluent enhancing mass along the tongue base and preepiglottic fat but with blurring of the soft tissue planes, edema and enhancement, likely reflecting treatment related changes from radiation therapy. Persistent nodular enhancement along the left tongue base measuring approximately 1.0 x 1.6 cm (series 7, image 79). There is effacement of the vallecula, bilateral piriform sinuses from diffuse mucosal edema. Mild narrowing of the supraglottic airway. The infraglottic trachea is patent. Major salivary glands: There is atrophy of the right submandibular and parotid glands. The right submandibular and parotid spaces are within normal. Postoperative findings from resection of the left submandibular and parotid glands. Thyroid gland: Normal. Lymph Nodes: No cervical lymphadenopathy by size criteria. Postoperative findings from left cervical lymph node dissection. Carotid/Parapharyngeal/Re tropharyngeal Spaces: Patent extracranial carotid systems and internal jugular veins bilaterally. Orbits, Face and Skull Base: Paranasal sinuses, mastoid air cells, and middle ear cavities are clear. Otherwise normal. Imaged intracranial contents: Left Eyelid weight. Cervical spine and remaining osseous structures: No osteolytic or osteoblastic process. Moderate cervical spondylosis. Lung apices: No consolidation or mass. Other: Not applicable. IMPRESSION: Postoperative findings from left frontal craniectomy and cranioplasty with metallic plate. There is extensive streak artifact from the metallic plate which obscures portions of the intracranial contents. Within these constraints, no clear findings of an acute intracranial process. Extensive postoperative findings from left parotidectomy and mastoidectomy with resection of previously seen left parotid and mastoid mass. No findings of residual or (more content not included)... Normal [facility] Comprehensive metabolic 2000 panelon 08-06-2025 Albumin [Mass/Vol] 3.5 g/dL Low 3.9-4.9 [facility] Comment on above: Order Comment: Speci men Type: BLOOD SPECIMENOrdering Facility: [facility] Address: [address] [place] [address] Performed By: #### 2 4323-8 ####GUSMAN LABORATORYCLIA [id number] [address] ALP [Catalytic activity/Vol] 77 U/L Normal 38-113 [facility] Comment on above: Order Comment: Speci men Type: BLOOD SPECIMENOrdering Facility: [facility] Address: [address] [place] [address] Performed By: #### 2 4323-8 ####GUSMAN LABORATORYCLIA [id number] [address] [place] [facility] ALT [Catalytic activity/Vol] Normal [facility] Comment on above: Order Comment: Speci men Type: BLOOD SPECIMENOrdering Facility: [facility] Address: [address] [place] [address] Result Comment: Unab le to assay due to interference from hemolysis. Suggest reorder as clinically indicated. Performed By: #### 2 4323-8 ####GUSMAN LABORATORYCLIA [id number] [address] [place] [facility] Anion gap [Moles/Vol] 14 mmol/L Normal 8-15 [facility] Comment on above: Order Comment: Speci men Type: BLOOD SPECIMENOrdering Facility: [facility] Address: [address] [place] [address] Performed By: #### 2 4323-8 ####GUSMAN LABORATORYCLIA [id number] [address] [place] AST [Catalytic activity/Vol] Normal [facility] Comment on above: Order Comment: Speci men Type: BLOOD SPECIMENOrdering Facility: [facility] Address: [address] [place] [address] Result Comment: Unab le to assay due to interference from hemolysis. Suggest reorder as clinically indicated. Performed By: #### 2 4323-8 ####GUSMAN LABORATORYCLIA [id number] [place] [address] [place] Bilirubin [Mass/Vol] 0.3 mg/dL Normal 0.2-1.3 [facility] Comment on above: Order Comment: Speci men Type: BLOOD SPECIMENOrdering Facility: [facility] Address: [address] [place] [address] Performed By: #### 2 4323-8 ####GUSMAN LABORATORYCLIA [id number] [place] [address] [place] Calcium [Mass/Vol] 9.4 mg/dL Normal 8.5-10.2 [facility] Comment on above: Order Comment: Speci men Type: BLOOD SPECIMENOrdering Facility: [facility] Address: [address] [place] [address] Performed By: #### 2 4323-8 ####GUSMAN LABORATORYCLIA [id number] [place] [address] [place] Chloride [Moles/Vol] 92 mmol/L Low 98-107 [facility] Comment on above: Order Comment: Speci men Type: BLOOD SPECIMENOrdering Facility: [facility] Address: [address] [place] [address] Performed By: #### 2 4323-8 ####GUSMAN LABORATORYCLIA [id number] [place] [address] [place] CO2 [Moles/Vol] 25 mmol/L Normal 22-30 [facility] Comment on above: Order Comment: Speci men Type: BLOOD SPECIMENOrdering Facility: [facility] Address: [address] [place] [address] Performed By: #### 2 4323-8 ####GUSMAN LABORATORYCLIA [id number] [place] [address] [place] Creatinine [Mass/Vol] 1.14 mg/dL Normal 0.73-1.22 [facility] Comment on above: Order Comment: Saira jade Type: BLOOD SPECIMENOrdering Facility: [facility] Address: [address] [place] [address] Performed By: #### 2 4323-8 ####GUSMAN LABORATORYCLIA [id number] [address] [place] eGFRcr SerPlBld CKD-EPI 2020 66 mL/min/1.73m??? Normal >=60 [facility] Comment on above: Order Comment: Saira jade Type: BLOOD SPECIMENOrdering Facility: [facility] Address: [address] [place] [address] Result Comment: Yesenia mated Glomerular Filtration Rate (eGFR) is calculated using the 2020 CKD-EPI creatinine equation. This equation utilizes serum creatinine, sex, and age as parameters. The creatinine assay has traceable calibration to isotope dilution-mass spectrometry. Refer to KDIGO guidelines for clinical interpretation. In patients with unstable renal function, e.g. those with acute kidney injury, the eGFR may not accurately reflect actual GFR. Performed By: #### 2 4323-8 ####GUSMAN LABORATORYCLIA [id number] [place] [address] [place] Glucose [Mass/Vol] 84 mg/dL Normal 74-99 [facility] Comment on above: Order Comment: Saira jade Type: BLOOD SPECIMENOrdering Facility: [facility] Address: [address] [place] [address] Result Comment: The [place] Diabetes Association (ADA) provides guidance for cutoff values for fasting glucose and random glucose. The ADA defines fasting as no caloric intake for at least 8 hours. Fasting plasma glucose results between 100 to 125 mg/dL indicate increased risk for diabetes (prediabetes). Fasting plasma glucose results greater than or equal to 126 mg/dL meet the criteria for diagnosis of diabetes. In the absence of unequivocal hyperglycemia, results should be confirmed by repeat testing. In a patient with classic symptoms of hyperglycemia or hyperglycemic crisis, random plasma glucose results greater than or equal to 200 mg/dL meet the criteria for diagnosis of diabetes. Reference: Standards of Medical Care in Diabetes 2016, [place] [employer] Association. Diabetes Care. 2016.39(Suppl 1). Performed By: #### 2 4323-8 ####GUSMAN LABORATORYCLIA [id number] [place] [address] [place] Potassium [Moles/Vol] Normal [facility] Comment on above: Order Comment: Speci men Type: BLOOD SPECIMENOrdering Facility: [facility] Address: [address] [place] [address] Result Comment: Unab le to assay due to interference from hemolysis. Suggest reorder as clinically indicated. Performed By: #### 2 4323-8 ####GUSMAN LABORATORYCLIA [id number] [place] [address] [place] Protein [Mass/Vol] 6.7 g/dL Normal 6.3-8.0 [facility] Comment on above: Order Comment: Speci men Type: BLOOD SPECIMENOrdering Facility: [facility] Address: [address] [place] [address] Performed By: #### 2 4323-8 ####GUSMAN LABORATORYCLIA [id number] [place] [address] [place] Sodium [Moles/Vol] 131 mmol/L Low 136-144 [facility] Comment on above: Order Comment: Speci men Type: BLOOD SPECIMENOrdering Facility: [facility] Address: [address] [place] [address] Performed By: #### 2 4323-8 ####GUSMAN LABORATORYCLIA [id number] [place] [address] [place] Urea nitrogen [Mass/Vol] 41 mg/dL High 9-24 [facility] Comment on above: Order Comment: Speci men Type: BLOOD SPECIMENOrdering Facility: [facility] Address: [address] [place] [address] Performed By: #### 2 4323-8 ####GUSMAN LABORATORYCLIA [id number] [place] [address] [place] Albumin [Mass/Vol] 4.1 g/dL Normal 3.9-4.9 [facility] Comment on above: Order Comment: Speci men Type: BLOOD SPECIMENOrdering Facility: [facility] Address: [address] [place] [address] Performed By: #### 1 9123-9, 2157-02, , 1988-01, [id number] ####CROWDER LABORATORYCLIA [id number] [place] [address] [place] ALP [Catalytic activity/Vol] 91 U/L Normal 38-113 [facility] Comment on above: Order Comment: Speci men Type: BLOOD SPECIMENOrdering Facility: [facility] Address: [address] [place] [address] Performed By: #### 1 9, 2157-02, , 1988-01, [id number] ####GUSMAN LABORATORYCLIA [id number] [place] [address] [place] ALT [Catalytic activity/Vol] 31 U/L Normal 10-54 [facility] Comment on above: Order Comment: Speci men Type: BLOOD SPECIMENOrdering Facility: [facility] Address: [address] [place] [address] Performed By: #### 1 239, 2157-02, , 1988-01, [id number] ####CROWDER LABORATORYCLIA [id number] [place] [address] [place] Anion gap [Moles/Vol] 18 mmol/L High 8-15 [facility] Comment on above: Order Comment: Speci men Type: BLOOD SPECIMENOrdering Facility: [facility] Address: [address] [place] [address] Performed By: #### 1 239, 2157-02, , 1988-01, [id number] ####CROWDER LABORATORYCLIA [id number] [place] [address] [place] AST [Catalytic activity/Vol] 32 U/L Normal 14-40 [facility] Comment on above: Order Comment: Speci men Type: BLOOD SPECIMENOrdering Facility: [facility] Address: [address] [place] [address] Performed By: #### 1 9123-9, 2157-02, , 1988-01, [id number] ####GUSMAN LABORATORYCLIA [id number] [place] [address] [place] Bilirubin [Mass/Vol] 0.4 mg/dL Normal 0.2-1.3 [facility] Comment on above: Order Comment: Speci men Type: BLOOD SPECIMENOrdering Facility: [facility] Address: [facility] [place] [address] Performed By: #### 1 9123-9, 2157-02, , 1988-01, [id number] ####GUSMAN LABORATORYCLIA [id number] [place] [address] [place] Calcium [Mass/Vol] 10.6 mg/dL High 8.5-10.2 [facility] Comment on above: Order Comment: Speci men Type: BLOOD SPECIMENOrdering Facility: [facility] Address: [address] [place], [place] [address] [address] Performed By: #### 1 91239, 2157-02, , 1988-01, [id number] ####CROWDER LABORATORYCLIA [id number] [place] [address] [place] Chloride [Moles/Vol] 93 mmol/L Low 98-107 [facility] Comment on above: Order Comment: Speci men Type: BLOOD SPECIMENOrdering Facility: [facility] Address: [facility] [place] [place] [address] Performed By: #### 1 91239, 2157-02, , 1988-01, [id number] ####CROWDER LABORATORYCLIA [id number] [place] [address] [place] CO2 [Moles/Vol] 25 mmol/L Normal 22-30 [facility] Comment on above: Order Comment: Speci men Type: BLOOD SPECIMENOrdering Facility: [facility] Address: [address] [place] [address] [place] [address] Performed By: #### 1 9123-9, 2157-02, , 1988-01, [id number] ####GUSMAN LABORATORYCLIA [id number] [place] [address] [place] Creatinine [Mass/Vol] 1.40 mg/dL High 0.73-1.22 [facility] Comment on above: Order Comment: Speci men Type: BLOOD SPECIMENOrdering Facility: [facility] Address: [address] [place] [address] Performed By: #### 1 9123-9, 2157-02, , 1988-01, [id number] ####GUSMAN LABORATORYCLIA [id number] [place] [id number] [place] eGFRcr SerPlBld CKD-EPI 2020 51 mL/min/1.73m??? Low >=60 [facility] Comment on above: Order Comment: Saira yasmany Type: BLOOD SPECIMENOrdering Facility: [facility] Address: [address] [place] [address] Result Comment: Yesenia mated Glomerular Filtration Rate (eGFR) is calculated using the 2020 CKD-EPI creatinine equation. This equation utilizes serum creatinine, sex, and age as parameters. The creatinine assay has traceable calibration to isotope dilution-mass spectrometry. Refer to KDIGO guidelines for clinical interpretation. In patients with unstable renal function, e.g. those with acute kidney injury, the eGFR may not accurately reflect actual GFR. Performed By: #### 1 9123-9, 2157-02, , 1988-01, [id number] ####CROWDER LABORATORYCLIA [id number] [place] [id number] [place] Glucose [Mass/Vol] 99 mg/dL Normal 74-99 [facility] Comment on above: Order Comment: Saira jade Type: BLOOD SPECIMENOrdering Facility: [facility] Address: [address] [place] [address] Result Comment: The [place] Diabetes Association (ADA) provides guidance for cutoff values for fasting glucose and random glucose. The ADA defines fasting as no caloric intake for at least 8 hours. Fasting plasma glucose results between 100 to 125 mg/dL indicate increased risk for diabetes (prediabetes). Fasting plasma glucose results greater than or equal to 126 mg/dL meet the criteria for diagnosis of diabetes. In the absence of unequivocal hyperglycemia, results should be confirmed by repeat testing. In a patient with classic symptoms of hyperglycemia or hyperglycemic crisis, random plasma glucose results greater than or equal to 200 mg/dL meet the criteria for diagnosis of diabetes. Reference: Standards of Medical Care in Diabetes 2016, [place] [employer]. Diabetes Care. 2016.39(Suppl 1). Performed By: #### 1 9123-9, 2157-02, , 1988-01, [id number] ####GUSMAN LABORATORYCLIA [id number] [place] [address] [place] Potassium [Moles/Vol] 5.8 mmol/L High 3.7-5.1 [facility] Comment on above: Order Comment: Speci men Type: BLOOD SPECIMENOrdering Facility: [facility] Address: [address] [place] [address] Performed By: #### 1 239, 2157-02, , 1988-01, [id number] ####GUSMAN LABORATORYCLIA [id number] [place] [address] [place] Protein [Mass/Vol] 7.9 g/dL Normal 6.3-8.0 [facility] Comment on above: Order Comment: Speci men Type: BLOOD SPECIMENOrdering Facility: [facility] Address: [address] [place] [address] Performed By: #### 1 239, 2157-02, , 1988-01, [id number] ####GUSMAN LABORATORYCLIA [id number] [place] [address] [place] Sodium [Moles/Vol] 136 mmol/L Normal 136-144 [facility] Comment on above: Order Comment: Speci men Type: BLOOD SPECIMENOrdering Facility: [facility] Address: [address] [place] [address] Performed By: #### 1 9123-9, 2157-02, , 1988-01, [id number] ####GUSMAN LABORATORYCLIA [id number] [place] [address] [place] Urea nitrogen [Mass/Vol] 43 mg/dL High 9-24 [facility] Comment on above: Order Comment: Speci men Type: BLOOD SPECIMENOrdering Facility: [facility] Address: [address] [place] [address] Performed By: #### 1 9123-9, 2157-02, , 1988-01, [id number] ####GUSMAN LABORATORYCLIA [id number] [place] [address] [place] QGY39ml 08-06-2025 ECG01 Ventricular Rate : 7 3 BPM Atrial Rate : 73 BPM P-R Interval : 146 ms QRS Duration : 84 ms Q-T Interval : 390 ms QTC Calculation(Bazett) : 429 ms Calculated P [place] : 58 degrees Calculated R [place] : 34 degrees Calculated T [place] : -57 degrees NORMAL SINUS RHYTHM T WAVE ABNORMALITY, CONSIDER INFERIOR ISCHEMIA When compared with selected ECG of 09-May-2024 09:22, there are T wave inversions in inferior leads that were nonspecific T wave changes on prior EKG. Also now present in the lateral leads. No ST elevation. No STEMI. Confirmed by MULU LYNNE MD ([id number]) on 08/06/2025 4:07:30 PM NAME : DIANA THURSTON PID : [id number] : 1945 Gender : Male Race : ORD : Procedure Date : Aug 06 2025 16:02:07 Edit Date : Aug 06 2025 16:07:35 Diagnosis: NORMAL SINUS RHYTHM T WAVE ABNORMALITY, CONSIDER INFERIOR ISCHEMIA When compared with selected ECG of 09-May-2024 09:22, there are T wave inversions in inferior leads that were nonspecific T wave changes on prior EKG. Also now present in the lateral leads. No ST elevation. No STEMI. Confirmed by MULU LYNNE MD ([id number]) on 08/06/2025 4:07:30 PM Test Reason : Location : 1 : ER ED Overread By : MULU LYNNE MD Edited By : MULU LYNNE MD Referred By : , Acquired by : [facility] ED NOTEon 08-06-2025 ED NOTE HNO ID: [id number] Author: DAVID TYSON, ELI Service: ? Author Type: Registered Nurse Type: ED Notes Filed: 08/06/2025 19:33 Note Text: Dr. Valladares @ [facility] ED PROV NOTEon 08-06-2025 ED PROV NOTE HNO ID: [id number] Author: MULU LYNNE MD Service: ? Author Type: Physician Type: ED Provider Notes Filed: 08/06/2025 19:17 Note Text: ED Provider Note Patient Name: Diana Thurston : 1945 SERVICE DATE: 08/06/25 History Patient presents with: Altered Level Of Consciousness: Patient presents to ED with CC of altered mental status, weakness, fatigue, lethargy. Patient has difficulty eating and drinking due to throat based cancer for which he has been receiving chemotherapy and radiation since June. Patient opens eyes to name call on arrival and answers questions. Weakness This patient arrives with his rlvrbh-ct-ada with chief complaint of change in mental status. His khzmab-bs-skm who is at bedside states that the last time she knew him to be well was this past Thursday when she took him to a radiation appointment for his throat cancer. Patient lives on his own. Recently discontinued chemotherapy as he no longer wanted to continue it. Patient really does not provide any history on his own. It is reported that he has not had anything to eat or drink over the past 1 week due to pain associated with his known throat cancer. This past April patient had reconstruction surgery of the left neck related to his known cancer. 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 PAST SURGICAL HISTORY Procedure Laterality Date - PAST SURGICAL HISTORY OF 1965 head surgery - PAST SURGICAL HISTORY OF 02/07/2025 Left parotid gland/right neck lymph node FNA - REMOVAL GALLBLADDER 2023 FAMILY HISTORY Problem Relation Age of Onset - Heart Attack Father - Cancer Sister - Breast Cancer Sister - Lung Cancer Sister - Heart Attack Brother - Heart Attack Brother - Heart Attack Brother Social History[1] ALLERGIES No Known Allergies Review of Systems Physical Exam Vitals [08/06/25 1528] BP Pulse Temp Temp src Resp SpO2 Weight Height 123/76 (!) 98 36.4 ?C (97.5 ?F) Oral 20 96 % 86.2 kg (190 lb) -- Physical Exam Vitals and nursing note reviewed. Constitutional: Patient has his eyes closed but responds to a sternal rub. He opened his eyes and mentions his name although very difficult to understand the words he is saying likely secondary to his known throat cancer. Psych: Appropriate mood and affect for chief complaint. Integumentary: Skin shows still healing left neck surgical wound, no overlying erythema or crepitus or induration or fluctuance at the left neck, no ecchymosis, no soft tissue swelling, skin is warm and dry. Neuro: Patient responds to sternal rub. He opens his eyes and is able to answer a simple questions such as his name. Patient seems to be too weak to demonstrate cranial nerve or cerebellar function testing. Sensation seems to be intact. Vascular: Good ulnar and radial pulses bilaterally. Cardiac: Regular rhythm and rate, S1-S2 are both audible. No rubs or gallops. No murmurs. Respiratory: No tachypnea. Lungs demonstrate right sided coarse lung sounds, essentially clear on the left. Musculoskeletal: No bony tenderness. Muscle grading in bilateral upper extremities is 5/5. Muscle grading in lower extremities is 5/5. GI: Abdomen is soft, no evidence of pain. Patient has positive bowel sounds in all areas. : No evident suprapubic pain. Extremities: Skin is warm and dry. No soft tissue swelling or edema. Homans sign is negative. There is no pain along the deep venous system. HENT: Head appears normocephalic. Trachea midline. On my exam there is erythema of the hard palate and posterior oropharynx with what looks like some mucosal tissue erosion. Very thick appearing like brown oral secretions. Dry and cracked lips. Lymphatics: No definite appreciable cervical or submandibular lymphadenopathy. Eyes: Conjunctivae are clear. Full extraocular eye movements intact. Diagnostic Testing ED Labs Ordered and Reviewed SEPSIS LACTATE W/ REFLEX (INITIAL) - Abnormal; Notable for the following components: Result Value Ref Range Sepsis Lactate 2.1 (*) 0.5 - 2.0 mmol/L All other components within normal limits COMPLETE BLOOD COUNT AND DIFFERENTIAL - Abnormal; Notable for the following components: Hemoglobin 17.1 (*) 13.0 - 17.0 g/dL All other components within normal limits COMPREHENSIVE METABOLIC PANEL - Abnormal; Notable for the following components: Calcium, Total 10.6 (*) 8.5 - 10.2 mg/dL BUN 43 (*) 9 - 24 mg/dL Creatinine 1.40 (*) 0.73 - 1.22 mg/dL Potassium 5.8 (*) 3.7 - 5.1 mmol/L Chloride 93 (*) 98 - 107 mmol/L Anion Gap 18 (*) 8 - 15 mmol/L Estimated Glomerular Filtration Rate 51 (*) >=60 mL/min/1.73m? All other components within normal limits C-REACTIVE PROTEIN - Abnormal; Notable for the following components: (more content not included)... Normal [facility] HIGH SENSITIVITY TROPONIN T (INITIAL)on 08-06-2025 Troponin T.cardiac High sensitivity method [Mass/Vol] 14 ng/L High <12 [facility] Comment on above: Order Comment: Specemmanuel jade Type: BLOOD SPECIMENOrdering Facility: [facility] Address: [address] [place] [address] Performed By: #### 1 9123-9, 2157-6, 27355-6, 1988-5, [id number] ####GUSMAN LABORATORYCLIA [id number] [address] HIGH SENSITIVITY TROPONIN T (SECOND)on 08-06-2025 Troponin T.cardiac High sensitivity method [Mass/Vol] 11 ng/L Normal <[address] [place] [address] Comment on above: Order Comment: Saira jade Type: BLOOD SPECIMENOrdering Facility: [facility] Address: [address] [place] [address] Performed By: #### L [id number] ####GUMSAN LABORATORYCLIA [id number] [address] HIGH SENSITIVITY TROPONIN T (THIRD) 3 HRS AFTER INITIALon 08-06-2025 Troponin T.cardiac High sensitivity method [Mass/Vol] 14 ng/L High <[address] [place] [address] Comment on above: Order Comment: Saira jade Type: BLOOD SPECIMENOrdering Facility: [facility] Address: [address] [place] [address] Performed By: #### K 1, [id number] ####GUSMAN LABORATORYCLIA [id number] [place] [id number] [facility] HISTORY PHYSICALon HISTORY PHYSICAL HNO ID: [id number] Author: DEBORAH KUNZ MD Service: Hospital Medicine Author Type: Physician Type: H&P Filed: 08/06/2025 23:58 Note Text: DEPARTMENT OF HOSPITAL MEDICINE HISTORY AND PHYSICAL EXAM SERVICE DATE: 08/06/2025 SERVICE TIME: 8:48 PM Primary Care Physician: Price Key, DO NIGHT AND WEEKEND COVERAGE: [facility] COVERAGE: Days: [phone], please page attending physician. Nights: [phone], please page [place] [facility] Night coverage pager [phone]. Subjective CHIEF COMPLAINT: Generalized weakness, poor intake, rapid weight loss. Patient is a poor historian due to weakness however him and his hkrmgy-rh-cwv at bedside and agreed that he did not have any change in mental status but was too weak to respond to questions. At the time of my exam, he has been hydrated and received some treatment and is able to speak but still feels very weak. 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 Admitted because of poor intake , progressive worsening dysphagia with solids partially tolerating only soft solids then completely with all solids with food getting stuck and he has to cough repeatedly to get it out and since yesterday developed complete dysphagia to liquids and oral secretions and he needed suctioning of his secretions at the ER .Have been losing weight from 95.5 kg (210 lb 8 oz) on 07/03/2025 to 86.2 kg (190 lb) on admission ( about 20lbs). Apart from coughing up food following feeding, he denies persistent cough, hemoptysis, fever, chills,CP,Shortness of Breath, abdominal pain, urinary symptoms ,N/V/D. Last bowel movement yesterday was brown and formed . He lives alone, feels very weak. When he stands up his legs feel like they would give away but he usually waits for a few minutes before he starts to ambulate. He denies any falls nor any significant pain. He stopped his chemotherapy and did not get his last scheduled chemotherapy on due to side effect of anorexia and loss of sense of taste . He is currently getting on weekly radiation for both left parotid tumor and base of tongue lesion.Last treatment was Thursday08/04/25. He is also seeing a boat buffer plastic outpatient due to poor intake and rapid weight loss. Was asked by Dr Martínez to schedule an office visit to discuss PEG tube placement.Patient is interested in PEG tube feeding but him, daughter and family has questions about it and how long it is expected to stay in. At the ER blood pressure 123/76, pulse 98, respiratory rate 20, temperature 97.5, SpO2 96% on room air. LABS : CBC:Hemoglobin 17.1 ,otherwise unremarkable CMP:Calcium 10.6 (was 10.3 on 08/04/25),cr 1.4-1.14 (was 1.31 on 08/04/25) and (1.12 on 07/25/25) ,Na 136-131, BUN 43-41 ,Was 35 on 08/04/25 rest is unremarkable Lactate 2.1-1.9 Crp 2.4 Mag 2.3 CK 30 HST 11-08-14 Covid/flu/RSV :Negative EKG normal sinus rhythm. QTc 429 subtle T wave inversions in leads V4 of, V5 and V6 and leads to 3 aVF which is mild but was not present last EKG in March 2025. He was treated with IV dexamethasone 10mg x1 for edema, 1 L of LR before admission. 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 GENERAL: Positive for generalized weakness, rapid weight loss but no fever no chills. HEENT: Positive for hearing loss L>R, Negative for frequent or significant headaches, No changes in vision, no nose bleeds or other nasal problems NECK: Negative for lumps, goiter, pain and significant neck swelling RESPIRATORY: Pos CARDIOVASCULAR: Negative for chest pain, leg swelling, hypertension, CHF or palpitations : No history of dysuria, frequency or incontinence MUSCULOSKELETAL: Negative for joint pain or swelling, back pain or muscle pain SKIN: Negative for lesions, rash, and itching PSYCH: Negative for sleep disturbance, mood d (more content not included)... Normal [facility] Magnesium SerPl-mCncon 08-06 Magnesium [Mass/Vol] 2.3 mg/dL Normal 1.7-2.3 [facility] Comment on above: Order Comment: Saira jade Type: BLOOD SPECIMENOrdering Facility: [facility] Address: [address] [place] [address] Performed By: #### 1 9123-9, 2157-6, 87331-3, 1988-5, [id number] ####CROWDER LABORATORYCLIA [id number] [place] [id number] [facility] POTASSIUMon 08-06-2025 Potassium [Moles/Vol] 4.2 mmol/L Normal 3.7-5.1 [facility] Comment on above: Order Comment: Saira jade Type: BLOOD SPECIMENOrdering Facility: [facility] Address: [address] [place] [address] Performed By: #### K 1, [id number] ####CROWDER LABORATORYCLIA [id number] [place] [id number] [place] PT panel Coag (PPP)on 2024 INR Coag (PPP) [Relative time] 1.2 {INR} Normal 0.9-1.3 [facility] Comment on above: Order Comment: Saira jade Type: BLOOD SPECIMENOrdering Facility: [facility] Address: [address] [place] [address] Result Comment: Mehreen min K Antagonist (VKA) Therapeutic Range: INR 2 to 3 (Target INR of 2.5) Note: For patients treated with VKA drugs, such as warfarin, the [place] [employer] 2012 Guideline recommends a therapeutic INR range of 2 to 3 (target INR of 2.5). This recommendation includes high-risk patients with antiphospholipid syndrome with previous arterial or venous thromboembolism, current-generation mechanical or bioprosthetic aortic heart valve replacement. Note: Patients with mechanical aortic valve replacement and additional risk factors for thromboembolic events (atrial fibrillation, previous thromboembolism, LV dysfunction, hypercoagulable conditions) or an older generation mechanical AVR (i.e., ball in-Cage) or any mechanical MVR should have a INR therapeutic range of 2.5 to 3.5 (target INR of 3). Candelaria GH, et al. Chest 2012, 141:7S-47S Kristin RA, et al. [facility] 2017, 70: 252-289 Performed By: #### 3 4528-0 ####GUSMAN LABORATORYCLIA [id number] [address] PT Coag (PPP) [Time] 12.4 s Normal 9.7-13.0 [facility] Comment on above: Order Comment: Speci men Type: BLOOD SPECIMENOrdering Facility: [facility] Address: [address] [place] [address] Performed By: #### 3 4528-0 ####CROWDER LABORATORYCLIA [id number] [address] SEPSIS LACTATE W/ REFLEX (IN ITIAL)on 08-06-2025 Lactate [Moles/Vol] 2.1 mmol/L High 0.5-2.0 [facility] Comment on above: Order Comment: Speci men Type: BLOOD SPECIMENOrdering Facility: [facility] Address: [address] [place] [address] Performed By: #### S LACTR ####CROWDER LABORATORYCLIA [id number] [address] SEPSIS LACTATE W/ REFLEX (SE COND)on 08-06-2025 Lactate [Moles/Vol] 1.9 mmol/L Normal 0.5-2.0 [facility] Comment on above: Order Comment: Speci men Type: BLOOD SPECIMENOrdering Facility: [facility] Address: [address] [place] [address] Performed By: #### S LACT2 ####CROWDER LABORATORYCLIA [id number] [address] XR CHEST 1V FRONTAL PORTon 1 10-06-2024 XR CHEST 1V FRONTAL PORT * * *Final Report* * * DATE OF EXAM: Aug 06 2025 3:53PM MDX [id number] - XR CHEST 1V FRONTAL PORT / PROCEDURE REASON: Fatigue and malaise * * * * Physician Interpretation * * * * EXAMINATION: CHEST RADIOGRAPH (PORTABLE SINGLE VIEW AP) Exam Date/Time: 08/06/2025 3:53 PM CLINICAL HISTORY: Fatigue and malaise, MQ: XCPR_5 Comparison: 04/25/2025 CT 05/20/2025 RESULT: Lines, tubes, and devices: None. Lungs and pleura: Confluent opacity lower RIGHT chest . No evidence LEFT pleural effusion. No evidence of pulmonary vascular redistribution. No infiltrate. Cardiomediastinal silhouette: Stable cardiomediastinal silhouette. Other: Multiple surgical clips in the neck. IMPRESSION: Given the findings on prior CT the opacity in the lower RIGHT chest is most likely due to diaphragmatic elevation and pleural fat. No acute finding. Optical Glass Sawyer: PSCB Transcribe Date/Time: Aug 06 2025 5:11P Dictated by : TAYLOR OCAMPO MD This examination was interpreted and the report reviewed and electronically signed by: TAYLOR OCAMPO MD on Aug 06 2025 5:14PM EST [id number] Normal [facility] CBC W Auto Differential pane l (Bld)on 08-04-2025 Basophils (Bld) [#/Vol] 0.03 10*3/uL Normal <0.11 [facility] Comment on above: Order Comment: Speci men Type: BLOOD SPECIMENOrdering Facility: [facility] Address: [address] [place] [address] Performed By: #### 5 7021-8 ####[facility] [id number] [place] [address] [place] Basophils/100 WBC (Bld) 0.7 % Normal [facility] Comment on above: Order Comment: Speci men Type: BLOOD SPECIMENOrdering Facility: [facility] Address: [address] [place] [address] Performed By: #### 5 7021-8 ####[facility] [id number] [place] [address] [place] Differential cell count method Nom (Bld) Auto Normal [facility] Comment on above: Order Comment: Speci men Type: BLOOD SPECIMENOrdering Facility: [facility] Address: [address] [place] [address] Performed By: #### 5 7021-8 ####[facility] SPENSERMOUNT SIDNEYNCA [id number] [place] [address] [place] Eosinophils (Bld) [#/Vol] 0.10 10*3/uL Normal <0.46 [facility] Comment on above: Order Comment: Speci men Type: BLOOD SPECIMENOrdering Facility: [facility] Address: [address] [place] [address] Performed By: #### 5 7021-8 ####[facility] HOSPITALPKA [id number] [place] [address] [place] Eosinophils/100 WBC (Bld) 2.2 % Normal [facility] Comment on above: Order Comment: Speci men Type: BLOOD SPECIMENOrdering Facility: [facility] Address: [address] [place] [address] Performed By: #### 5 7021-8 ####[facility] HOSPITALPKA [id number] [place] [address] [place] Erythrocyte distribution width (RBC) [Ratio] 13.8 % Normal 11.5-15.0 [facility] Comment on above: Order Comment: Speci men Type: BLOOD SPECIMENOrdering Facility: [facility] Address: [address] [place] [address] Performed By: #### 5 7021-8 ####[facility] HOSPITALPKLIA [id number] [place] [address] [place] Hematocrit (Bld) [Volume fraction] 47.5 % Normal 39.0-51.0 [facility] Comment on above: Order Comment: Speci men Type: BLOOD SPECIMENOrdering Facility: [facility] Address: [address] [place] [address] Performed By: #### 5 7021-8 ####[facility] [id number] [place] [address] [place] Hemoglobin (Bld) [Mass/Vol] 16.5 g/dL Normal 13.0-17.0 [facility] Comment on above: Order Comment: Speci men Type: BLOOD SPECIMENOrdering Facility: [facility] Address: [address] [place] [address] Performed By: #### 5 7021-8 ####[facility]EL[facility] [id number] [place] [address] [place] Immature granulocytes (Bld) [#/Vol] 10*3/uL Normal <0.10 [facility] Comment on above: Order Comment: Speci men Type: BLOOD SPECIMENOrdering Facility: [facility] Address: [address] [place] [address] Performed By: #### 5 7021-8 ####[facility] [id number] [place] [address] [place] Immature granulocytes/100 WBC (Bld) 0.4 % Normal [facility] Comment on above: Order Comment: Speci men Type: BLOOD SPECIMENOrdering Facility: [facility] Address: [address] [place] [address] Performed By: #### 5 7021-8 ####[facility] [id number] [place] [address] [place] Lymphocytes (Bld) [#/Vol] 1.22 10*3/uL Normal 1.00-4.00 [facility] Comment on above: Order Comment: Speci men Type: BLOOD SPECIMENOrdering Facility: [facility] Address: [address] [place] [address] Performed By: #### 5 7021-8 ####[facility]OSPITALNCLIA [id number] [place] [address] [place] Lymphocytes/100 WBC (Bld) 26.6 % Normal [facility] Comment on above: Order Comment: Speci men Type: BLOOD SPECIMENOrdering Facility: [facility] Address: [address] [place] [address] Performed By: #### 5 7021-8 ####[facility] [id number] [place] [address] [place] MCH (RBC) [Entitic mass] 29.9 pg Normal 26.0-34.0 [facility] Comment on above: Order Comment: Speci men Type: BLOOD SPECIMENOrdering Facility: [facility] Address: [address] [place] [address] Performed By: #### 5 7021-8 ####[facility] [id number] [place] [address] [place] MCHC (RBC) [Mass/Vol] 34.7 g/dL Normal 30.5-36.0 [facility] Comment on above: Order Comment: Speci men Type: BLOOD SPECIMENOrdering Facility: [facility] Address: [address] [place] [address] Performed By: #### 5 7021-8 ####[facility] [id number] [place] [address] [place] MCV (RBC) [Entitic vol] 86.2 fL Normal 80.0-100.0 [facility] Comment on above: Order Comment: Speci men Type: BLOOD SPECIMENOrdering Facility: [facility] Address: [address] [place] [address] Performed By: #### 5 7021-8 ####[facility] [id number] [place] [address] [place] Monocytes (Bld) [#/Vol] 0.69 10*3/uL Normal <0.87 [facility] Comment on above: Order Comment: Speci men Type: BLOOD SPECIMENOrdering Facility: [facility] Address: [address] [place] [address] Performed By: #### 5 7021-8 ####[facility] MILLTOWNCLIA [id number] [place] [address] [place] Monocytes/100 WBC (Bld) 15.0 % Normal [facility] Comment on above: Order Comment: Speci men Type: BLOOD SPECIMENOrdering Facility: [facility] Address: [address] [place] [address] Performed By: #### 5 7021-8 ####[facility] MILLTOWNCLIA [id number] [place] [address] [place] Neutrophils (Bld) [#/Vol] 2.53 10*3/uL Normal 1.45-7.50 [facility] Comment on above: Order Comment: Speci men Type: BLOOD SPECIMENOrdering Facility: [facility] Address: [address] [place] [address] Performed By: #### 5 7021-8 ####[facility] MILLWNCLIA [id number] [place] [address] [place] Neutrophils/100 WBC (Bld) 55.1 % Normal [facility] Comment on above: Order Comment: Speci men Type: BLOOD SPECIMENOrdering Facility: [facility] Address: [address] [place] [address] Performed By: #### 5 7021-8 ####[facility] MILLTOWNCLIA [id number] [place] [address] [place] Nucleated RBC (Bld) [#/Vol] 10*3/uL Normal <0.01 [facility] Comment on above: Order Comment: Speci men Type: BLOOD SPECIMENOrdering Facility: [facility] Address: [address] [place] [address] Performed By: #### 5 7021-8 ####[facility] MILLWNCLIA [id number] [place] [address] [place] Nucleated RBC/100 WBC (Bld) [Ratio] 0.0 /100 WBC Normal [facility] Comment on above: Order Comment: Speci men Type: BLOOD SPECIMENOrdering Facility: [facility] Address: [address] [place] [address] Performed By: #### 5 7021-8 ####[facility] [id number] [place] [address] [place] Platelet mean volume (Bld) [Entitic vol] 8.7 fL Low 9.0-12.7 [facility] Comment on above: Order Comment: Speci men Type: BLOOD SPECIMENOrdering Facility: [facility] Address: [address] [place] [address] Performed By: #### 5 7021-8 ####[facility] [id number] [place] [address] [place] Platelets (Bld) [#/Vol] 150 10*3/uL Normal 150-400 [facility] Comment on above: Order Comment: Speci men Type: BLOOD SPECIMENOrdering Facility: [facility] Address: [address] [place] [address] Performed By: #### 5 7021-8 ####[facility] NORTHRalph [id number] [place] [address] [place] RBC (Bld) [#/Vol] 5.51 10*6/uL Normal 4.20-6.00 [facility] Comment on above: Order Comment: Speci men Type: BLOOD SPECIMENOrdering Facility: [facility] Address: [address] [place] [address] Performed By: #### 5 7021-8 ####[facility] [id number] [place] [address] [place] WBC (Bld) [#/Vol] 4.59 10*3/uL Normal 3.70-11.00 [facility] Comment on above: Order Comment: Speci men Type: BLOOD SPECIMENOrdering Facility: [facility] Address: [address] [place] [address] Performed By: #### 5 7021-8 ####[facility] CLINICWNCLIA [id number] [place] [address] [place] Comprehensive metabolic 2000 panelon 08-04-2025 Albumin [Mass/Vol] 4.2 g/dL Normal 3.9-4.9 [facility] Comment on above: Order Comment: Speci men Type: BLOOD SPECIMENOrdering Facility: [facility] Address: [address] [place] [address] Performed By: #### 2 4323-8, 63737-2 ####[facility]OSPITALNCLIA [id number] [place] [address] [place] ALP [Catalytic activity/Vol] 87 U/L Normal 38-113 [facility] Comment on above: Order Comment: Speci men Type: BLOOD SPECIMENOrdering Facility: [facility] Address: [address] [place] [address] Performed By: #### 2 4323-8, 92546-9 ####[facility]OSPITALNCLIA [id number] [place] [address] [place] ALT [Catalytic activity/Vol] 24 U/L Normal 10-54 [facility] Comment on above: Order Comment: Speci men Type: BLOOD SPECIMENOrdering Facility: [facility] Address: [address] [place] [address] Performed By: #### 2 4323-8, ####[facility]OSPITALNCLIA [id number] [place] [address] [place] Anion gap [Moles/Vol] 17 mmol/L High 8-15 [facility] Comment on above: Order Comment: Speci men Type: BLOOD SPECIMENOrdering Facility: [facility] Address: [address] [place] [address] Performed By: #### 2 4323-8, ####[facility] SPENSERWNCLIA [id number] [place] [address] [place] AST [Catalytic activity/Vol] 28 U/L Normal 14-40 [facility] Comment on above: Order Comment: Speci men Type: BLOOD SPECIMENOrdering Facility: [facility] Address: [address] [place] [address] Performed By: #### 2 4323-8, ####[facility]PITALNCLIA [id number] [place] [address] [place] Bilirubin [Mass/Vol] 0.4 mg/dL Normal 0.2-1.3 [facility] Comment on above: Order Comment: Speci men Type: BLOOD SPECIMENOrdering Facility: [facility] Address: [address] [place] [address] Performed By: #### 2 4323-8, ####[facility]OSPITALNCLIA [id number] [place] [address] [place] Calcium [Mass/Vol] 10.3 mg/dL High 8.5-10.2 [facility] Comment on above: Order Comment: Speci men Type: BLOOD SPECIMENOrdering Facility: [facility] Address: [address] [place] [address] Performed By: #### 2 4323-8, ####[facility]OSPITALNCLIA [id number] [place] [address] [place] Chloride [Moles/Vol] 93 mmol/L Low 98-107 [facility] Comment on above: Order Comment: Speci men Type: BLOOD SPECIMENOrdering Facility: [facility] Address: [address] [place] [address] Performed By: #### 2 4323-8, 11691-5 ####[facility] HENNYWNCLIA [id number] [place] [address] [place] CO2 [Moles/Vol] 24 mmol/L Normal 22-30 [facility] Comment on above: Order Comment: Speci men Type: BLOOD SPECIMENOrdering Facility: [facility] Address: [address] [place] [address] Performed By: #### 2 4323-8, 22638-1 ####[facility]OSPITALNCLIA [id number] [place] [address] [place] Creatinine [Mass/Vol] 1.31 mg/dL High 0.73-1.22 [facility] Comment on above: Order Comment: Speci men Type: BLOOD SPECIMENOrdering Facility: [facility] Address: [address] [place] [address] Performed By: #### 2 4323-8, 94378-6 ####[facility]OSPITALNCLIA [id number] [place] [address] [place] eGFRcr SerPlBld CKD-EPI 2020 56 mL/min/1.73m??? Low >=60 [facility] Comment on above: Order Comment: Speci men Type: BLOOD SPECIMENOrdering Facility: [facility] Address: [address] [place] [address] Result Comment: Yesenia mated Glomerular Filtration Rate (eGFR) is calculated using the 2020 CKD-EPI creatinine equation. This equation utilizes serum creatinine, sex, and age as parameters. The creatinine assay has traceable calibration to isotope dilution-mass spectrometry. Refer to KDIGO guidelines for clinical interpretation. In patients with unstable renal function, e.g. those with acute kidney injury, the eGFR may not accurately reflect actual GFR. Performed By: #### 2 4323-8, 85072-5 ####[facility] CLINICWNCLIA [id number] [place] [id number] [place] Glucose [Mass/Vol] 89 mg/dL Normal 74-99 [facility] Comment on above: Order Comment: Speci men Type: BLOOD SPECIMENOrdering Facility: [facility] Address: [address] [place], [place] [id number] Result Comment: The [place] Diabetes Association (ADA) provides guidance for cutoff values for fasting glucose and random glucose. The ADA defines fasting as no caloric intake for at least 8 hours. Fasting plasma glucose results between 100 to 125 mg/dL indicate increased risk for diabetes (prediabetes).Fasting plasma glucose results greater than or equal to 126 mg/dL meet the criteria for diagnosis of diabetes. In the absence of unequivocal hyperglycemia, results should be confirmed by repeat testing. In a patient with classic symptoms of hyperglycemia or hyperglycemic crisis, random plasma glucose results greater than or equal to 200 mg/dL meet the criteria for diagnosis of diabetes.Reference: Standards of Medical Care in Diabetes 2016, [place] [employer] Association. Diabetes Care. 2016.39(Suppl 1). Performed By: #### 2 4323-8, 71209-0 ####[facility] MILLTOWNCLIA [id number] [place] [address] [place] Potassium [Moles/Vol] 3.9 mmol/L Normal 3.7-5.1 [facility] Comment on above: Order Comment: Laurai men Type: BLOOD SPECIMENOrdering Facility: [facility] Address: [address] [place] [address] Performed By: #### 2 4323-8, ####[facility] MILLTOWNCLIA [id number] [place] [id number] [place] Protein [Mass/Vol] 7.3 g/dL Normal 6.3-8.0 [facility] Comment on above: Order Comment: Laurai men Type: BLOOD SPECIMENOrdering Facility: [facility] Address: [address] [place] [address] Performed By: #### 2 4323-8, ####[facility] MILLWPKLIA [id number] [place] [address] [place] Sodium [Moles/Vol] 134 mmol/L Low 136-144 [facility] Comment on above: Order Comment: Speci men Type: BLOOD SPECIMENOrdering Facility: [facility] Address: [address] [place] [address] Performed By: #### 2 4323-8, 72043-7 ####[facility] MILLMOUNT SIDNEYNCLIA [id number] [place] [address] [place] Urea nitrogen [Mass/Vol] 35 mg/dL High 9-24 [facility] Comment on above: Order Comment: Speci men Type: BLOOD SPECIMENOrdering Facility: [facility] Address: [address] [place] [address] Performed By: #### 2 4323-8, 71186-5 ####[facility]ITALNCLIA [id number] [place] [address] [place] Magnesium SerPl-ncon 08-04 Magnesium [Mass/Vol] 2.0 mg/dL Normal 1.7-2.3 [facility] Comment on above: Order Comment: Speci men Type: BLOOD SPECIMENOrdering Facility: [facility] Address: [address] [place] [address] Performed By: #### 2 4323-8, 77748-4 ####[facility] SPENSERMOUNT SIDNEYNCLIA [id number] [place] [address] [place] CNCNPATEDon 08-01-2025 CNCNPATED Normal [facility] CNOVon 08-01-2025 CNOV Normal [facility] CNPNon 07-31-2025 CNPN Normal [facility] CNOVon 07-26-2025 CNOV Normal [facility] CNPNon 07-26-2025 CNPN Normal [facility] Basic metabolic 2000 panelon 07-25-2025 Anion gap [Moles/Vol] 15 mmol/L Normal 8-15 [facility] Comment on above: Order Comment: Speci men Type: BLOOD SPECIMENOrdering Facility: [facility] Address: [address] [place] [address] Performed By: #### 2 4321-2 ####[facility]ITALNCLIA [id number] [place] [address] [place] Calcium [Mass/Vol] 10.0 mg/dL Normal 8.5-10.2 [facility] Comment on above: Order Comment: Speci men Type: BLOOD SPECIMENOrdering Facility: [facility] Address: [address] [place] [address] Performed By: #### 2 4321-2 ####[facility]ITALNCL[facility] [id number] [place] [address] [place] Chloride [Moles/Vol] 94 mmol/L Low 98-107 [facility] Comment on above: Order Comment: Speci men Type: BLOOD SPECIMENOrdering Facility: [facility] Address: [address] [place] [address] Performed By: #### 2 4321-2 ####[facility] [id number] [place] [address] [place] CO2 [Moles/Vol] 23 mmol/L Normal 22-30 [facility] Comment on above: Order Comment: Speci men Type: BLOOD SPECIMENOrdering Facility: [facility] Address: [address] [place] [address] Performed By: #### 2 4321-2 ####[facility] [id number] [place] [address] [place] Creatinine [Mass/Vol] 1.12 mg/dL Normal 0.73-1.22 [facility] Comment on above: Order Comment: Speci men Type: BLOOD SPECIMENOrdering Facility: [facility] Address: [address] [place] [address] Performed By: #### 2 4321-2 ####[facility]ICWNCLI [id number] [place] [address] [place] eGFRcr SerPlBld CKD-EPI 2020 67 mL/min/1.73m??? Normal >=60 [facility] Comment on above: Order Comment: Saira jade Type: BLOOD SPECIMENOrdering Facility: [facility] Address: [address] [place] [address] Result Comment: Yesenia mated Glomerular Filtration Rate (eGFR) is calculated using the 2020 CKD-EPI creatinine equation. This equation utilizes serum creatinine, sex, and age as parameters. The creatinine assay has traceable calibration to isotope dilution-mass spectrometry. Refer to KDIGO guidelines for clinical interpretation. In patients with unstable renal function, e.g. those with acute kidney injury, the eGFR may not accurately reflect actual GFR. Performed By: #### 2 4321-2 ####[facility] [id number] [place] [address] [place] Glucose [Mass/Vol] 97 mg/dL Normal 74-99 [facility] Comment on above: Order Comment: Saira jade Type: BLOOD SPECIMENOrdering Facility: [facility] Address: [address] [place] [address] Result Comment: The [place] Diabetes [employer] (ADA) provides guidance for cutoff values for fasting glucose and random glucose. The ADA defines fasting as no caloric intake for at least 8 hours. Fasting plasma glucose results between 100 to 125 mg/dL indicate increased risk for diabetes (prediabetes).Fasting plasma glucose results greater than or equal to 126 mg/dL meet the criteria for diagnosis of diabetes. In the absence of unequivocal hyperglycemia, results should be confirmed by repeat testing. In a patient with classic symptoms of hyperglycemia or hyperglycemic crisis, random plasma glucose results greater than or equal to 200 mg/dL meet the criteria for diagnosis of diabetes.Reference: Standards of Medical Care in Diabetes 2016, [place] [employer]. Diabetes Care. 2016.39(Suppl 1). Performed By: #### 2 4321-2 ####[facility] [id number] [place] [address] [place] Potassium [Moles/Vol] 3.8 mmol/L Normal 3.7-5.1 [facility] Comment on above: Order Comment: Speci men Type: BLOOD SPECIMENOrdering Facility: [facility] Address: [address] [place] [address] Performed By: #### 2 4321-2 ####[facility]Ralph [id number] [place] [address] [place] Sodium [Moles/Vol] 132 mmol/L Low 136-144 [facility] Comment on above: Order Comment: Speci men Type: BLOOD SPECIMENOrdering Facility: [facility] Address: [address] [place] [address] Performed By: #### 2 4321-2 ####[facility]THRalph [id number] [place] [address] [place] Urea nitrogen [Mass/Vol] 36 mg/dL High - [facility] Comment on above: Order Comment: Speci men Type: BLOOD SPECIMENOrdering Facility: [facility] Address: [address] [place] [address] Performed By: #### 2 4321-2 ####[facility] [id number] [place] [address] [place] CNPNon 07-24-2025 CNPN Normal [facility] CBC W Auto Differential pane l (Bld)on 07-21-2025 Basophils (Bld) [#/Vol] 0.05 10*3/uL Normal <0.11 [facility] Comment on above: Order Comment: Speci men Type: BLOOD SPECIMENOrdering Facility: [facility] Address: [address] [place] [address] Performed By: #### 5 7021-8 ####[facility]OSPITALPKLIA [id number] [place] [address] [place] Basophils/100 WBC (Bld) 0.8 % Normal [facility] Comment on above: Order Comment: Speci men Type: BLOOD SPECIMENOrdering Facility: [facility] Address: [address] [place] [address] Performed By: #### 5 7021-8 ####[facility] [id number] [place] [address] [place] Differential cell count method Nom (Bld) Auto Normal [facility] Comment on above: Order Comment: Speci men Type: BLOOD SPECIMENOrdering Facility: [facility] Address: [address] [place] [address] Performed By: #### 5 7021-8 ####[facility] HOSPITALNCLI [id number] [place] [address] [place] Eosinophils (Bld) [#/Vol] 0.12 10*3/uL Normal <0.46 [facility] Comment on above: Order Comment: Speci men Type: BLOOD SPECIMENOrdering Facility: [facility] Address: [address] [place] [address] Performed By: #### 5 7021-8 ####[facility] [id number] [place] [address] [place] Eosinophils/100 WBC (Bld) 2.0 % Normal [facility] Comment on above: Order Comment: Speci men Type: BLOOD SPECIMENOrdering Facility: [facility] Address: [address] [place] [address] Performed By: #### 5 7021-8 ####[facility] [id number] [place] [address] [place] Erythrocyte distribution width (RBC) [Ratio] 13.1 % Normal 11.5-15.0 [facility] Comment on above: Order Comment: Speci men Type: BLOOD SPECIMENOrdering Facility: [facility] Address: [address] [place] [address] Performed By: #### 5 7021-8 ####[facility] [id number] [place] [address] [place] Hematocrit (Bld) [Volume fraction] 46.0 % Normal 39.0-51.0 [facility] Comment on above: Order Comment: Speci men Type: BLOOD SPECIMENOrdering Facility: [facility] Address: [address] [place] [address] Performed By: #### 5 7021-8 ####[facility] HOSPITALPINKY [id number] [place] [address] [place] Hemoglobin (Bld) [Mass/Vol] 15.7 g/dL Normal 13.0-17.0 [facility] Comment on above: Order Comment: Speci men Type: BLOOD SPECIMENOrdering Facility: [facility] Address: [address] [place] [address] Performed By: #### 5 7021-8 ####[facility] [id number] [place] [address] [place] Immature granulocytes (Bld) [#/Vol] 0.08 10*3/uL Normal <0.10 [facility] Comment on above: Order Comment: Speci men Type: BLOOD SPECIMENOrdering Facility: [facility] Address: [address] [place] [address] Performed By: #### 5 7021-8 ####[facility]OSPITALPKLIRalph [id number] [place] [address] [place] Immature granulocytes/100 WBC (Bld) 1.3 % Normal [facility] Comment on above: Order Comment: Speci men Type: BLOOD SPECIMENOrdering Facility: [facility] Address: [address] [place] [address] Performed By: #### 5 7021-8 ####[facility] CLINICWNHLIA [id number] [place] [address] [place] Lymphocytes (Bld) [#/Vol] 1.40 10*3/uL Normal 1.00-4.00 [facility] Comment on above: Order Comment: Speci men Type: BLOOD SPECIMENOrdering Facility: [facility] Address: [address] [place] [address] Performed By: #### 5 7021-8 ####[facility] [id number] [place] [address] [place] Lymphocytes/100 WBC (Bld) 23.1 % Normal [facility] Comment on above: Order Comment: Speci men Type: BLOOD SPECIMENOrdering Facility: [facility] Address: [address] [place] [address] Performed By: #### 5 7021-8 ####[facility] [id number] [place] [address] [place] MCH (RBC) [Entitic mass] 30.2 pg Normal 26.0-34.0 [facility] Comment on above: Order Comment: Speci men Type: BLOOD SPECIMENOrdering Facility: [facility] Address: [address] [place] [address] Performed By: #### 5 7021-8 ####[facility] [id number] [place] [address] [place] MCHC (RBC) [Mass/Vol] 34.1 g/dL Normal 30.5-36.0 [facility] Comment on above: Order Comment: Speci men Type: BLOOD SPECIMENOrdering Facility: [facility] Address: [address] [place] [address] Performed By: #### 5 7021-8 ####[facility] HOSPITALNCLI [id number] [place] [address] [place] MCV (RBC) [Entitic vol] 88.5 fL Normal 80.0-100.0 [facility] Comment on above: Order Comment: Speci men Type: BLOOD SPECIMENOrdering Facility: [facility] Address: [address] [place] [address] Performed By: #### 5 7021-8 ####[facility]ITALNCLAYTON [facility] [id number] [place] [address] [place] Monocytes (Bld) [#/Vol] 0.62 10*3/uL Normal <0.87 [facility] Comment on above: Order Comment: Speci men Type: BLOOD SPECIMENOrdering Facility: [facility] Address: [address] [place] [address] Performed By: #### 5 7021-8 ####[facility] [id number] [place] [address] [place] Monocytes/100 WBC (Bld) 10.2 % Normal [facility] Comment on above: Order Comment: Speci men Type: BLOOD SPECIMENOrdering Facility: [facility] Address: [address] [place] [address] Performed By: #### 5 7021-8 ####[facility] [id number] [place] [address] [place] Neutrophils (Bld) [#/Vol] 3.79 10*3/uL Normal 1.45-7.50 [facility] Comment on above: Order Comment: Speci men Type: BLOOD SPECIMENOrdering Facility: [facility] Address: [address] [place] [address] Performed By: #### 5 7021-8 ####[facility]ITALNCLAYTON [facility] [id number] [place] [address] [place] Neutrophils/100 WBC (Bld) 62.6 % Normal [facility] Comment on above: Order Comment: Speci men Type: BLOOD SPECIMENOrdering Facility: [facility] Address: [address] [place] [address] Performed By: #### 5 7021-8 ####[facility] SPENSERMOUNT SIDNEYPINKY [id number] [place] [address] [place] Nucleated RBC (Bld) [#/Vol] 10*3/uL Normal <0.01 [facility] Comment on above: Order Comment: Speci men Type: BLOOD SPECIMENOrdering Facility: [facility] Address: [address] [place] [address] Performed By: #### 5 7021-8 ####[facility] [id number] [place] [address] [place] Nucleated RBC/100 WBC (Bld) [Ratio] 0.0 /100 WBC Normal [facility] Comment on above: Order Comment: Speci men Type: BLOOD SPECIMENOrdering Facility: [facility] Address: [address] [place] [address] Performed By: #### 5 7021-8 ####[facility] [id number] [place] [address] [place] Platelet mean volume (Bld) [Entitic vol] 8.7 fL Low 9.0-12.7 [facility] Comment on above: Order Comment: Speci men Type: BLOOD SPECIMENOrdering Facility: [facility] Address: [address] [place] [address] Performed By: #### 5 7021-8 ####[facility]PITALNCLIA [id number] [place] [address] [place] Platelets (Bld) [#/Vol] 191 10*3/uL Normal 150-400 [facility] Comment on above: Order Comment: Speci men Type: BLOOD SPECIMENOrdering Facility: [facility] Address: [address] [place] [address] Performed By: #### 5 7021-8 ####[facility]ICWNCLIA [id number] [place] [address] [place] RBC (Bld) [#/Vol] 5.20 10*6/uL Normal 4.20-6.00 [facility] Comment on above: Order Comment: Speci men Type: BLOOD SPECIMENOrdering Facility: [facility] Address: [address] [place] [address] Performed By: #### 5 7021-8 ####[facility]ITALNCLIA [id number] [place] [address] [place] WBC (Bld) [#/Vol] 6.06 10*3/uL Normal 3.70-11.00 [facility] Comment on above: Order Comment: Speci men Type: BLOOD SPECIMENOrdering Facility: [facility] Address: [address] [place] [address] Performed By: #### 5 7021-8 ####[facility] [id number] [place] [address] [place] CNOVSPon 07-21-2025 CNOVSP Normal [facility] Comprehensive metabolic 2000 panelon 07-21-2025 Albumin [Mass/Vol] 4.1 g/dL Normal 3.9-4.9 [facility] Comment on above: Order Comment: Speci men Type: BLOOD SPECIMENOrdering Facility: [facility] Address: [address] [place] [address] Performed By: #### 2 4323-8, 31544-8 ####[facility]OSPITALNCLIA [id number] [place] [address] [place] ALP [Catalytic activity/Vol] 81 U/L Normal 38-113 [facility] Comment on above: Order Comment: Speci men Type: BLOOD SPECIMENOrdering Facility: [facility] Address: [address] [place] [address] Performed By: #### 2 4323-8, ####[facility] MILLTOWNCLIA [id number] [place] [address] [place] ALT [Catalytic activity/Vol] 38 U/L Normal 10-54 [facility] Comment on above: Order Comment: Speci men Type: BLOOD SPECIMENOrdering Facility: [facility] Address: [address] [place] [address] Performed By: #### 2 432-8, ####[facility] MILLTOWNCLIA [id number] [place] [address] [place] Anion gap [Moles/Vol] 12 mmol/L Normal 8-15 [facility] Comment on above: Order Comment: Speci men Type: BLOOD SPECIMENOrdering Facility: [facility] Address: [address] [place] [address] Performed By: #### 2 4328, ####[facility] MILLWNCLIA [id number] [place] [address] [place] AST [Catalytic activity/Vol] 26 U/L Normal 14-40 [facility] Comment on above: Order Comment: Speci men Type: BLOOD SPECIMENOrdering Facility: [facility] Address: [address] [place] [address] Performed By: #### 2 4323-8, ####[facility] MILLTOWNCLIA [id number] [place] [address] [place] Bilirubin [Mass/Vol] 0.6 mg/dL Normal 0.2-1.3 [facility] Comment on above: Order Comment: Speci men Type: BLOOD SPECIMENOrdering Facility: [facility] Address: [address] [place] [address] Performed By: #### 2 4323-8, ####[facility] MILLTOWNCLIA [id number] [place] [id number] [place] Calcium [Mass/Vol] 9.7 mg/dL Normal 8.5-10.2 [facility] Comment on above: Order Comment: Speci men Type: BLOOD SPECIMENOrdering Facility: [facility] Address: [address] [place] [address] Performed By: #### 2 4323-8, 23066-4 ####[facility] MILLTOWPKLIA [id number] [place] [address] [place] Chloride [Moles/Vol] 93 mmol/L Low 98-107 [facility] Comment on above: Order Comment: Speci men Type: BLOOD SPECIMENOrdering Facility: [facility] Address: [address] [place] [address] Performed By: #### 2 4323-8, ####[facility] HOSPITALKASIAA [id number] [place] [address] [place] CO2 [Moles/Vol] 27 mmol/L Normal 22-30 [facility] Comment on above: Order Comment: Speci men Type: BLOOD SPECIMENOrdering Facility: [facility] Address: [address] [place] [address] Performed By: #### 2 4323-8, ####[facility] MILLWPKLIA [id number] [place] [address] [place] Creatinine [Mass/Vol] 0.94 mg/dL Normal 0.73-1.22 [facility] Comment on above: Order Comment: Speci men Type: BLOOD SPECIMENOrdering Facility: [facility] Address: [address] [place] [address] Performed By: #### 2 4323-8, ####[facility] MILLWNCLIA [id number] [place] [address] [place] eGFRcr SerPlBld CKD-EPI 2020 83 mL/min/1.73m??? Normal >=60 [facility] Comment on above: Order Comment: Saira jade Type: BLOOD SPECIMENOrdering Facility: [facility] Address: [address] [place] [address] Result Comment: Yesenia mated Glomerular Filtration Rate (eGFR) is calculated using the 2020 CKD-EPI creatinine equation. This equation utilizes serum creatinine, sex, and age as parameters. The creatinine assay has traceable calibration to isotope dilution-mass spectrometry. Refer to KDIGO guidelines for clinical interpretation. In patients with unstable renal function, e.g. those with acute kidney injury, the eGFR may not accurately reflect actual GFR. Performed By: #### 2 4323-8, 66693-8 ####[facility]ITALPK[facility] [id number] [place] [address] [place] Glucose [Mass/Vol] 140 mg/dL High 74-99 [facility] Comment on above: Order Comment: Saira jade Type: BLOOD SPECIMENOrdering Facility: [facility] Address: [address] [place] [address] Result Comment: The [place] Diabetes Association (ADA) provides guidance for cutoff values for fasting glucose and random glucose. The ADA defines fasting as no caloric intake for at least 8 hours. Fasting plasma glucose results between 100 to 125 mg/dL indicate increased risk for diabetes (prediabetes).Fasting plasma glucose results greater than or equal to 126 mg/dL meet the criteria for diagnosis of diabetes. In the absence of unequivocal hyperglycemia, results should be confirmed by repeat testing. In a patient with classic symptoms of hyperglycemia or hyperglycemic crisis, random plasma glucose results greater than or equal to 200 mg/dL meet the criteria for diagnosis of diabetes.Reference: Standards of Medical Care in Diabetes 2016, [place] [employer]. Diabetes Care. 2016.39(Suppl 1). Performed By: #### 2 4323-8, 88660-2 ####[facility] [id number] [place] [address] [place] Potassium [Moles/Vol] 3.7 mmol/L Normal 3.7-5.1 [facility] Comment on above: Order Comment: Speci men Type: BLOOD SPECIMENOrdering Facility: [facility] Address: [address] [place] [address] Performed By: #### 2 4323-8, ####[facility] SPENSERSUKHWINDERA [id number] [place] [address] [place] Protein [Mass/Vol] 7.3 g/dL Normal 6.3-8.0 [facility] Comment on above: Order Comment: Speci men Type: BLOOD SPECIMENOrdering Facility: [facility] Address: [address] [place] [address] Performed By: #### 2 4323-8, ####[facility] MADHAVNCMARLENE [id number] [place] [address] [place] Sodium [Moles/Vol] 132 mmol/L Low 136-144 [facility] Comment on above: Order Comment: Speci men Type: BLOOD SPECIMENOrdering Facility: [facility] Address: [address] [place] [address] Performed By: #### 2 4323-8, ####[facility] HENNYKASIAA [id number] [place] [address] [place] Urea nitrogen [Mass/Vol] 18 mg/dL Normal 9-24 [facility] Comment on above: Order Comment: Speci men Type: BLOOD SPECIMENOrdering Facility: [facility] Address: [address] [place] [address] Performed By: #### 2 4323-8, ####[facility]ITALNCLIA [id number] [place] [address] [place] Magnesium SerPl-mCncon 07-21 Magnesium [Mass/Vol] 1.5 mg/dL Low 1.7-2.3 [facility] Comment on above: Order Comment: Speci men Type: BLOOD SPECIMENOrdering Facility: [facility] Address: [address] [place] [address] Performed By: #### 2 4323-8, 24618-7 ####[facility] [id number] [place] [address] [place] CBC W Auto Differential pane l (Bld)on 07-17-2025 Basophils (Bld) [#/Vol] 0.06 10*3/uL Normal <0.11 [facility] Comment on above: Order Comment: Speci men Type: BLOOD SPECIMENOrdering Facility: [facility] Address: [address] [place] [address] Performed By: #### 5 7021-8 ####[facility] [id number] [place] [address] [place] Basophils/100 WBC (Bld) 0.7 % Normal [facility] Comment on above: Order Comment: Speci men Type: BLOOD SPECIMENOrdering Facility: [facility] Address: [address] [place] [address] Performed By: #### 5 7021-8 ####[facility] [id number] [place] [address] [place] Differential cell count method Nom (Bld) Auto Normal [facility] Comment on above: Order Comment: Speci men Type: BLOOD SPECIMENOrdering Facility: [facility] Address: [address] [place] [address] Performed By: #### 5 7021-8 ####[facility] [id number] [place] [address] [place] Eosinophils (Bld) [#/Vol] 0.11 10*3/uL Normal <0.46 [facility] Comment on above: Order Comment: Speci men Type: BLOOD SPECIMENOrdering Facility: [facility] Address: [address] [place] [address] Performed By: #### 5 7021-8 ####[facility] SPENSEREAMONLIA [id number] [place] [address] [place] Eosinophils/100 WBC (Bld) 1.3 % Normal [facility] Comment on above: Order Comment: Speci men Type: BLOOD SPECIMENOrdering Facility: [facility] Address: [address] [place] [address] Performed By: #### 5 7021-8 ####[facility]PITALPKJOSLYNA [id number] [place] [address] [place] Erythrocyte distribution width (RBC) [Ratio] 13.0 % Normal 11.5-15.0 [facility] Comment on above: Order Comment: Speci men Type: BLOOD SPECIMENOrdering Facility: [facility] Address: [address] [place] [address] Performed By: #### 5 7021-8 ####[facility] HOSPITALPINKY [id number] [place] [address] [place] Hematocrit (Bld) [Volume fraction] 44.2 % Normal 39.0-51.0 [facility] Comment on above: Order Comment: Speci men Type: BLOOD SPECIMENOrdering Facility: [facility] Address: [address] [place] [address] Performed By: #### 5 7021-8 ####[facility]PITALPINKY [id number] [place] [address] [place] Hemoglobin (Bld) [Mass/Vol] 15.0 g/dL Normal 13.0-17.0 [facility] Comment on above: Order Comment: Speci men Type: BLOOD SPECIMENOrdering Facility: [facility] Address: [address] [place] [address] Performed By: #### 5 7021-8 ####[facility]ITALNCLIA [id number] [place] [address] [place] Immature granulocytes (Bld) [#/Vol] 0.04 10*3/uL Normal <0.10 [facility] Comment on above: Order Comment: Speci men Type: BLOOD SPECIMENOrdering Facility: [facility] Address: [address] [place] [address] Performed By: #### 5 7021-8 ####[facility] [id number] [place] [address] [place] Immature granulocytes/100 WBC (Bld) 0.5 % Normal [facility] Comment on above: Order Comment: Speci men Type: BLOOD SPECIMENOrdering Facility: [facility] Address: [address] [place] [address] Performed By: #### 5 7021-8 ####[facility] [id number] [place] [address] [place] Lymphocytes (Bld) [#/Vol] 1.72 10*3/uL Normal 1.00-4.00 [facility] Comment on above: Order Comment: Speci men Type: BLOOD SPECIMENOrdering Facility: [facility] Address: [address] [place] [address] Performed By: #### 5 7021-8 ####[facility] [id number] [place] [address] [place] Lymphocytes/100 WBC (Bld) 20.3 % Normal [facility] Comment on above: Order Comment: Speci men Type: BLOOD SPECIMENOrdering Facility: [facility] Address: [address] [place] [address] Performed By: #### 5 7021-8 ####[facility] [id number] [place] [address] [place] MCH (RBC) [Entitic mass] 29.5 pg Normal 26.0-34.0 [facility] Comment on above: Order Comment: Speci men Type: BLOOD SPECIMENOrdering Facility: [facility] Address: [address] [place] [address] Performed By: #### 5 7021-8 ####[facility] SPENSERROSEY [id number] [place] [address] [place] MCHC (RBC) [Mass/Vol] 33.9 g/dL Normal 30.5-36.0 [facility] Comment on above: Order Comment: Speci men Type: BLOOD SPECIMENOrdering Facility: [facility] Address: [address] [place] [address] Performed By: #### 5 7021-8 ####[facility] [id number] [place] [address] [place] MCV (RBC) [Entitic vol] 86.8 fL Normal 80.0-100.0 [facility] Comment on above: Order Comment: Speci men Type: BLOOD SPECIMENOrdering Facility: [facility] Address: [address] [place] [address] Performed By: #### 5 7021-8 ####[facility] [id number] [place] [address] [place] Monocytes (Bld) [#/Vol] 0.88 10*3/uL High <0.87 [facility] Comment on above: Order Comment: Speci men Type: BLOOD SPECIMENOrdering Facility: [facility] Address: [address] [place] [address] Performed By: #### 5 7021-8 ####[facility] [id number] [place] [address] [place] Monocytes/100 WBC (Bld) 10.4 % Normal [facility] Comment on above: Order Comment: Speci men Type: BLOOD SPECIMENOrdering Facility: [facility] Address: [address] [place] [address] Performed By: #### 5 7021-8 ####[facility]ICWNHL[facility] [id number] [place] [address] [place] Neutrophils (Bld) [#/Vol] 5.68 10*3/uL Normal 1.45-7.50 [facility] Comment on above: Order Comment: Speci men Type: BLOOD SPECIMENOrdering Facility: [facility] Address: [address] [place] [address] Performed By: #### 5 7021-8 ####[facility] [id number] [place] [address] [place] Neutrophils/100 WBC (Bld) 66.8 % Normal [facility] Comment on above: Order Comment: Speci men Type: BLOOD SPECIMENOrdering Facility: [facility] Address: [address] [place] [address] Performed By: #### 5 7021-8 ####[facility] [id number] [place] [address] [place] Nucleated RBC (Bld) [#/Vol] 10*3/uL Normal <0.01 [facility] Comment on above: Order Comment: Speci men Type: BLOOD SPECIMENOrdering Facility: [facility] Address: [address] [place] [address] Performed By: #### 5 7021-8 ####[facility] [id number] [place] [address] [place] Nucleated RBC/100 WBC (Bld) [Ratio] 0.0 /100 WBC Normal [facility] Comment on above: Order Comment: Speci men Type: BLOOD SPECIMENOrdering Facility: [facility] Address: [address] [place] [address] Performed By: #### 5 7021-8 ####[facility]ITALNCLI [id number] [place] [address] [place] Platelet mean volume (Bld) [Entitic vol] 8.5 fL Low 9.0-12.7 [facility] Comment on above: Order Comment: Speci men Type: BLOOD SPECIMENOrdering Facility: [facility] Address: [address] [place] [address] Performed By: #### 5 7021-8 ####[facility] [id number] [place] [address] [place] Platelets (Bld) [#/Vol] 205 10*3/uL Normal 150-400 [facility] Comment on above: Order Comment: Speci men Type: BLOOD SPECIMENOrdering Facility: [facility] Address: [address] [place] [address] Performed By: #### 5 7021-8 ####[facility] [id number] [place] [address] [place] RBC (Bld) [#/Vol] 5.09 10*6/uL Normal 4.20-6.00 [facility] Comment on above: Order Comment: Speci men Type: BLOOD SPECIMENOrdering Facility: [facility] Address: [address] [place] [address] Performed By: #### 5 7021-8 ####[facility]PITALNCA [id number] [place] [address] [place] WBC (Bld) [#/Vol] 8.49 10*3/uL Normal 3.70-11.00 [facility] Comment on above: Order Comment: Speci men Type: BLOOD SPECIMENOrdering Facility: [facility] Address: [address] [place] [address] Performed By: #### 5 7021-8 ####[facility]ITALNCLI [id number] [place] [address] [place] CNOVon 07-17-2025 CNOV Normal [facility] Comprehensive metabolic 2000 panelon 07-17-2025 Albumin [Mass/Vol] 4.0 g/dL Normal 3.9-4.9 [facility] Comment on above: Order Comment: Speci men Type: BLOOD SPECIMENOrdering Facility: [facility] Address: [address] [place] [address] Performed By: #### 2 4323-8, ####[facility]ICWNCLIA [id number] [place] [address] [place] ALP [Catalytic activity/Vol] 80 U/L Normal 38-113 [facility] Comment on above: Order Comment: Speci men Type: BLOOD SPECIMENOrdering Facility: [facility] Address: [address] [place] [address] Performed By: #### 2 4323-8, ####[facility]ITALNCLIA [id number] [place] [address] [place] ALT [Catalytic activity/Vol] 29 U/L Normal 10-54 [facility] Comment on above: Order Comment: Speci men Type: BLOOD SPECIMENOrdering Facility: [facility] Address: [address] [place] [address] Performed By: #### 2 4323-8, ####[facility] [id number] [place] [address] [place] Anion gap [Moles/Vol] 13 mmol/L Normal 8-15 [facility] Comment on above: Order Comment: Speci men Type: BLOOD SPECIMENOrdering Facility: [facility] Address: [address] [place] [address] Performed By: #### 2 4323-8, ####[facility]ITALNCLIA [id number] [place] [address] [place] AST [Catalytic activity/Vol] 22 U/L Normal 14-40 [facility] Comment on above: Order Comment: Speci men Type: BLOOD SPECIMENOrdering Facility: [facility] Address: [address] [place] [address] Performed By: #### 2 4323-8, ####[facility] [id number] [place] [address] [place] Bilirubin [Mass/Vol] 0.4 mg/dL Normal 0.2-1.3 [facility] Comment on above: Order Comment: Speci men Type: BLOOD SPECIMENOrdering Facility: [facility] Address: [address] [place], [place] [address] Performed By: #### 2 4323-8, ####[facility] [id number] [place] [address] [place] Calcium [Mass/Vol] 9.1 mg/dL Normal 8.5-10.2 [facility] Comment on above: Order Comment: Speci men Type: BLOOD SPECIMENOrdering Facility: [facility] Address: [address] [place] [address] Performed By: #### 2 4323-8, ####[facility] [id number] [place] [address] [place] Chloride [Moles/Vol] 94 mmol/L Low 98-107 [facility] Comment on above: Order Comment: Speci men Type: BLOOD SPECIMENOrdering Facility: [facility] Address: [address] [place] [address] Performed By: #### 2 4323-8, ####[facility] [id number] [place] [address] [place] CO2 [Moles/Vol] 24 mmol/L Normal 22-30 [facility] Comment on above: Order Comment: Speci men Type: BLOOD SPECIMENOrdering Facility: [facility] Address: [address] [place] [address] Performed By: #### 2 4323-8, ####[facility] SPENSERWNCLIA [id number] [place] [address] [place] Creatinine [Mass/Vol] 0.88 mg/dL Normal 0.73-1.22 [facility] Comment on above: Order Comment: Speci men Type: BLOOD SPECIMENOrdering Facility: [facility] Address: [address] [place] [address] Performed By: #### 2 4323-8, ####[facility]ITALNCLIA [id number] [place] [address] [place] eGFRcr SerPlBld CKD-EPI 2020 88 mL/min/1.73m??? Normal >=60 [facility] Comment on above: Order Comment: Saira jade Type: BLOOD SPECIMENOrdering Facility: [facility] Address: [address] [place] [address] Result Comment: Yesenia mated Glomerular Filtration Rate (eGFR) is calculated using the 2020 CKD-EPI creatinine equation. This equation utilizes serum creatinine, sex, and age as parameters. The creatinine assay has traceable calibration to isotope dilution-mass spectrometry. Refer to KDIGO guidelines for clinical interpretation. In patients with unstable renal function, e.g. those with acute kidney injury, the eGFR may not accurately reflect actual GFR. Performed By: #### 2 4323-8, ####[facility] [id number] [place] [address] [place] Glucose [Mass/Vol] 122 mg/dL High 74-99 [facility] Comment on above: Order Comment: Speci men Type: BLOOD SPECIMENOrdering Facility: [facility] Address: [address] [place] [address] Result Comment: The [place] [employer] (ADA) provides guidance for cutoff values for fasting glucose and random glucose. The ADA defines fasting as no caloric intake for at least 8 hours. Fasting plasma glucose results between 100 to 125 mg/dL indicate increased risk for diabetes (prediabetes).Fasting plasma glucose results greater than or equal to 126 mg/dL meet the criteria for diagnosis of diabetes. In the absence of unequivocal hyperglycemia, results should be confirmed by repeat testing. In a patient with classic symptoms of hyperglycemia or hyperglycemic crisis, random plasma glucose results greater than or equal to 200 mg/dL meet the criteria for diagnosis of diabetes.Reference: Standards of Medical Care in Diabetes 2016, [place] [employer]. Diabetes Care. 2016.39(Suppl 1). Performed By: #### 2 432-8, ####[facility] MILLTOWNCLIA [id number] [place] [address] [place] Potassium [Moles/Vol] 3.4 mmol/L Low 3.7-5.1 [facility] Comment on above: Order Comment: Speci men Type: BLOOD SPECIMENOrdering Facility: [facility] Address: [address] [place] [address] Performed By: #### 2 43212-03, ####[facility]ICWNHLIA [id number] [place] [address] [place] Protein [Mass/Vol] 6.9 g/dL Normal 6.3-8.0 [facility] Comment on above: Order Comment: Speci men Type: BLOOD SPECIMENOrdering Facility: [facility] Address: [address] [place] [address] Performed By: #### 2 4328, ####[facility]ICWNCLIA [id number] [place] [address] [place] Sodium [Moles/Vol] 131 mmol/L Low 136-144 [facility] Comment on above: Order Comment: Speci men Type: BLOOD SPECIMENOrdering Facility: [facility] Address: [address] [place], [place] [address] Performed By: #### 2 4323-8, ####[facility] MILLWNCLIA [id number] [place] [address] [place] Urea nitrogen [Mass/Vol] 20 mg/dL Normal 9-24 [facility] Comment on above: Order Comment: Speci men Type: BLOOD SPECIMENOrdering Facility: [facility] Address: [address] [place] [address] Performed By: #### 2 4323-8, 01449-8 ####[facility] SPENSERSusyPKLIA [id number] [place] [address] [place] Magnesium SerPl-mCncon 07-17 Magnesium [Mass/Vol] 1.7 mg/dL Normal 1.7-2.3 [facility] Comment on above: Order Comment: Speci men Type: BLOOD SPECIMENOrdering Facility: [facility] Address: [address] [place] [address] Performed By: #### 2 4323-8, 52115-5 ####[facility]OSPITALKASIAA [id number] [place] [address] [place] CNOVon 07-11-2025 CNOV Normal [facility] CNPNon 07-10-2025 CNPN Normal [facility] CBC W Auto Differential pane l (Bld)on 07-07-2025 Basophils (Bld) [#/Vol] 0.04 10*3/uL Normal <0.11 [facility] Comment on above: Order Comment: Speci men Type: BLOOD SPECIMENOrdering Facility: [facility] Address: [address] [place] [address] Performed By: #### 5 7021-8 ####[facility]ITALNCLIA [id number] [place] [address] [place] Basophils/100 WBC (Bld) 0.4 % Normal [facility] Comment on above: Order Comment: Speci men Type: BLOOD SPECIMENOrdering Facility: [facility] Address: [address] [place] [address] Performed By: #### 5 7021-8 ####[facility] SPENSERSusyNCLIA [id number] [place] [address] [place] Differential cell count method Nom (Bld) Auto Normal [facility] Comment on above: Order Comment: Speci men Type: BLOOD SPECIMENOrdering Facility: [facility] Address: [address] [place] [address] Performed By: #### 5 7021-8 ####[facility]OSPITALKASIAA [id number] [place] [address] [place] Eosinophils (Bld) [#/Vol] 0.18 10*3/uL Normal <0.46 [facility] Comment on above: Order Comment: Speci men Type: BLOOD SPECIMENOrdering Facility: [facility] Address: [address] [place] [address] Performed By: #### 5 7021-8 ####[facility]ITALPKLAY[facility] [id number] [place] [address] [place] Eosinophils/100 WBC (Bld) 1.7 % Normal [facility] Comment on above: Order Comment: Speci men Type: BLOOD SPECIMENOrdering Facility: [facility] Address: [address] [place] [address] Performed By: #### 5 7021-8 ####[facility] HOSPITALPINKY [id number] [place] [address] [place] Erythrocyte distribution width (RBC) [Ratio] 13.2 % Normal 11.5-15.0 [facility] Comment on above: Order Comment: Speci men Type: BLOOD SPECIMENOrdering Facility: [facility] Address: [address] [place] [address] Performed By: #### 5 7021-8 ####[facility]ITALNCLIA [id number] [place] [address] [place] Hematocrit (Bld) [Volume fraction] 47.7 % Normal 39.0-51.0 [facility] Comment on above: Order Comment: Speci men Type: BLOOD SPECIMENOrdering Facility: [facility] Address: [address] [place] [address] Performed By: #### 5 7021-8 ####[facility] [id number] [place] [address] [place] Hemoglobin (Bld) [Mass/Vol] 16.1 g/dL Normal 13.0-17.0 [facility] Comment on above: Order Comment: Speci men Type: BLOOD SPECIMENOrdering Facility: [facility] Address: [address] [place] [address] Performed By: #### 5 7021-8 ####[facility] [id number] [place] [address] [place] Immature granulocytes (Bld) [#/Vol] 0.04 10*3/uL Normal <0.10 [facility] Comment on above: Order Comment: Speci men Type: BLOOD SPECIMENOrdering Facility: [facility] Address: [address] [place] [address] Performed By: #### 5 7021-8 ####[facility] [id number] [place] [address] [place] Immature granulocytes/100 WBC (Bld) 0.4 % Normal [facility] Comment on above: Order Comment: Speci men Type: BLOOD SPECIMENOrdering Facility: [facility] Address: [address] [place] [address] Performed By: #### 5 7021-8 ####[facility] [id number] [place] [address] [place] Lymphocytes (Bld) [#/Vol] 3.05 10*3/uL Normal 1.00-4.00 [facility] Comment on above: Order Comment: Speci men Type: BLOOD SPECIMENOrdering Facility: [facility] Address: [address] [place], [place] [address] Performed By: #### 5 7021-8 ####[facility] HOSPITALNCJOSLYN [id number] [address] [place] Lymphocytes/100 WBC (Bld) 29.0 % Normal [facility] Comment on above: Order Comment: Speci men Type: BLOOD SPECIMENOrdering Facility: [facility] Address: [address] [place] [address] Performed By: #### 5 7021-8 ####[facility] [id number] [place] [address] [place] MCH (RBC) [Entitic mass] 30.3 pg Normal 26.0-34.0 [facility] Comment on above: Order Comment: Speci men Type: BLOOD SPECIMENOrdering Facility: [facility] Address: [address] [place] [address] Performed By: #### 5 7021-8 ####[facility] [id number] [place] [address] [place] MCHC (RBC) [Mass/Vol] 33.8 g/dL Normal 30.5-36.0 [facility] Comment on above: Order Comment: Speci men Type: BLOOD SPECIMENOrdering Facility: [facility] Address: [address] [place] [address] Performed By: #### 5 7021-8 ####[facility]ITALNCLIA [id number] [place] [address] [place] MCV (RBC) [Entitic vol] 89.8 fL Normal 80.0-100.0 [facility] Comment on above: Order Comment: Speci men Type: BLOOD SPECIMENOrdering Facility: [facility] Address: [address] [place] [address] Performed By: #### 5 7021-8 ####[facility]ITALNCLIA [id number] [place] [address] [place] Monocytes (Bld) [#/Vol] 1.07 10*3/uL High <0.87 [facility] Comment on above: Order Comment: Speci men Type: BLOOD SPECIMENOrdering Facility: [facility] Address: [address] [place] [address] Performed By: #### 5 7021-8 ####[facility]PITALPKLIA [id number] [place] [address] [place] Monocytes/100 WBC (Bld) 10.2 % Normal [facility] Comment on above: Order Comment: Speci men Type: BLOOD SPECIMENOrdering Facility: [facility] Address: [address] [place] [address] Performed By: #### 5 7021-8 ####[facility] [id number] [place] [address] [place] Neutrophils (Bld) [#/Vol] 6.12 10*3/uL Normal 1.45-7.50 [facility] Comment on above: Order Comment: Speci men Type: BLOOD SPECIMENOrdering Facility: [facility] Address: [address] [place] [address] Performed By: #### 5 7021-8 ####[facility] [id number] [place] [address] [place] Neutrophils/100 WBC (Bld) 58.3 % Normal [facility] Comment on above: Order Comment: Speci men Type: BLOOD SPECIMENOrdering Facility: [facility] Address: [address] [place] [address] Performed By: #### 5 7021-8 ####[facility]ITALNCLIA [id number] [place] [address] [place] Nucleated RBC (Bld) [#/Vol] 10*3/uL Normal <0.01 [facility] Comment on above: Order Comment: Speci men Type: BLOOD SPECIMENOrdering Facility: [facility] Address: [address] [place] [address] Performed By: #### 5 7021-8 ####[facility]ITALNCL[facility] [id number] [place] [address] [place] Nucleated RBC/100 WBC (Bld) [Ratio] 0.0 /100 WBC Normal [facility] Comment on above: Order Comment: Speci men Type: BLOOD SPECIMENOrdering Facility: [facility] Address: [address] [place] [address] Performed By: #### 5 7021-8 ####[facility]ITALNCL[facility] [id number] [place] [address] [place] Platelet mean volume (Bld) [Entitic vol] 8.6 fL Low 9.0-12.7 [facility] Comment on above: Order Comment: Speci men Type: BLOOD SPECIMENOrdering Facility: [facility] Address: [address] [place] [address] Performed By: #### 5 7021-8 ####[facility] [id number] [place] [address] [place] Platelets (Bld) [#/Vol] 267 10*3/uL Normal 150-400 [facility] Comment on above: Order Comment: Speci men Type: BLOOD SPECIMENOrdering Facility: [facility] Address: [address] [place] [address] Performed By: #### 5 7021-8 ####[facility] [id number] [place] [address] [place] RBC (Bld) [#/Vol] 5.31 10*6/uL Normal 4.20-6.00 [facility] Comment on above: Order Comment: Speci men Type: BLOOD SPECIMENOrdering Facility: [facility] Address: [address] [place], [place] [address] Performed By: #### 5 7021-8 ####[facility] SPENSERSusyNCLIA [id number] [place] [address] [place] WBC (Bld) [#/Vol] 10.50 10*3/uL Normal 3.70-11.00 [facility] Comment on above: Order Comment: Speci men Type: BLOOD SPECIMENOrdering Facility: [facility] Address: [address] [place] [address] Performed By: #### 5 7021-8 ####[facility]ITALNCLIA [id number] [place] [address] [place] CNOVSPon 07-07-2025 CNOVSP Normal [facility] CNPNon 07-07-2025 CNPN Normal [facility] Comprehensive metabolic 2000 panelon 07-07-2025 Albumin [Mass/Vol] 4.1 g/dL Normal 3.9-4.9 [facility] Comment on above: Order Comment: Speci men Type: BLOOD SPECIMENOrdering Facility: [facility] Address: [address] [place] [address] Performed By: #### 1 9123-9, 00252-1 ####[facility]ITALNCLIA [id number] [place] [address] [place] ALP [Catalytic activity/Vol] 76 U/L Normal 38-113 [facility] Comment on above: Order Comment: Speci men Type: BLOOD SPECIMENOrdering Facility: [facility] Address: [address] [place] [address] Performed By: #### 1 9123-9, 16817-4 ####[facility] CLINICWNCLIA [id number] [place] [address] [place] ALT [Catalytic activity/Vol] 28 U/L Normal 10-54 [facility] Comment on above: Order Comment: Speci men Type: BLOOD SPECIMENOrdering Facility: [facility] Address: [address] [place] [address] Performed By: #### 1 9123-9, 99038-4 ####[facility] RATNA MADHAVNCMARLENE [id number] [place] [address] [place] Anion gap [Moles/Vol] 14 mmol/L Normal 8-15 [facility] [place] Comment on above: Order Comment: Speci men Type: BLOOD SPECIMENOrdering Facility: [facility] Address: [address] [place] [address] Performed By: #### 1 9123-9, 08964-6 ####[facility]OSPITALNCJOSLYNA [id number] [place] [address] [place] AST [Catalytic activity/Vol] 21 U/L Normal 14-40 [facility] [place] Comment on above: Order Comment: Speci men Type: BLOOD SPECIMENOrdering Facility: [facility] Address: [address] [place] [address] Performed By: #### 1 9123-9, 85577-3 ####[facility] SPENSERMOUNT SIDNEYNCLIA [id number] [place] [address] [place] Bilirubin [Mass/Vol] 0.5 mg/dL Normal 0.2-1.3 [facility] Comment on above: Order Comment: Speci men Type: BLOOD SPECIMENOrdering Facility: [facility] Address: [address] [place], [place] [address] Performed By: #### 1 9123-9, 47755-3 ####[facility]OSPITALNCLIA [id number] [place] [address] [place] Calcium [Mass/Vol] 9.8 mg/dL Normal 8.5-10.2 [facility] Comment on above: Order Comment: Speci men Type: BLOOD SPECIMENOrdering Facility: [facility] Address: [address] [place], [place] [address] Performed By: #### 1 9123-9, 26707-3 ####[facility]OSPITALNCLIA [id number] [place] [address] [place] Chloride [Moles/Vol] 93 mmol/L Low 98-107 [facility] Comment on above: Order Comment: Speci men Type: BLOOD SPECIMENOrdering Facility: [facility] Address: [address] [place] [address] Performed By: #### 1 9123-9, 58271-4 ####[facility]OSPITALNCLIA [id number] [place] [address] [place] CO2 [Moles/Vol] 27 mmol/L Normal 22-30 [facility] [place] Comment on above: Order Comment: Speci men Type: BLOOD SPECIMENOrdering Facility: [facility] Address: [address] [place] [address] Performed By: #### 1 9123-9, 15747-9 ####[facility]PITALNCLIA [id number] [place] [address] [place] Creatinine [Mass/Vol] 0.98 mg/dL Normal 0.73-1.22 [facility] [place] Comment on above: Order Comment: Speci men Type: BLOOD SPECIMENOrdering Facility: [facility] Address: [address] [place] [address] Performed By: #### 1 9123-9, 96920-2 ####[facility]OSPITALNCLIA [id number] [place] [address] [place] eGFRcr SerPlBld CKD-EPI 2020 79 mL/min/1.73m??? Normal >=60 [facility] [place] Comment on above: Order Comment: Speci men Type: BLOOD SPECIMENOrdering Facility: [facility] Address: [address] [place] [address] Result Comment: Yesenia mated Glomerular Filtration Rate (eGFR) is calculated using the 2020 CKD-EPI creatinine equation. This equation utilizes serum creatinine, sex, and age as parameters. The creatinine assay has traceable calibration to isotope dilution-mass spectrometry. Refer to KDIGO guidelines for clinical interpretation. In patients with unstable renal function, e.g. those with acute kidney injury, the eGFR may not accurately reflect actual GFR. Performed By: #### 1 9123-9, 73815-0 ####[facility]INICWNCLIA [id number] [place] [address] [place] Glucose [Mass/Vol] 103 mg/dL High 74-99 [facility] Comment on above: Order Comment: Saira jade Type: BLOOD SPECIMENOrdering Facility: [facility] Address: [address] [place] [address] Result Comment: The [place] Diabetes Association (ADA) provides guidance for cutoff values for fasting glucose and random glucose. The ADA defines fasting as no caloric intake for at least 8 hours. Fasting plasma glucose results between 100 to 125 mg/dL indicate increased risk for diabetes (prediabetes).Fasting plasma glucose results greater than or equal to 126 mg/dL meet the criteria for diagnosis of diabetes. In the absence of unequivocal hyperglycemia, results should be confirmed by repeat testing. In a patient with classic symptoms of hyperglycemia or hyperglycemic crisis, random plasma glucose results greater than or equal to 200 mg/dL meet the criteria for diagnosis of diabetes.Reference: Standards of Medical Care in Diabetes 2016, [place] [employer]. Diabetes Care. 2016.39(Suppl 1). Performed By: #### 1 9123-9, 40060-8 ####[facility] CLINICWNCLIA [id number] [place] [address] [place] Potassium [Moles/Vol] 3.6 mmol/L Low 3.7-5.1 [facility] [place] Comment on above: Order Comment: Saira jade Type: BLOOD SPECIMENOrdering Facility: [facility] Address: [address] [place] [address] Performed By: #### 1 9123-9, 71681-5 ####[facility] [id number] [place] [address] [place] Protein [Mass/Vol] 6.7 g/dL Normal 6.3-8.0 [facility] Comment on above: Order Comment: Speci men Type: BLOOD SPECIMENOrdering Facility: [facility] Address: [address] [place] [address] Performed By: #### 1 9123-9, 07906-4 ####[facility] [id number] [place] [address] [place] Sodium [Moles/Vol] 134 mmol/L Low 136-144 [facility] Comment on above: Order Comment: Speci men Type: BLOOD SPECIMENOrdering Facility: [facility] Address: [address] [place] [address] Performed By: #### 1 9123-9, 02758-0 ####[facility] [id number] [place] [address] [place] Urea nitrogen [Mass/Vol] 22 mg/dL Normal 9-24 [facility] [place] Comment on above: Order Comment: Speci men Type: BLOOD SPECIMENOrdering Facility: [facility] Address: [address] [place] [address] Performed By: #### 1 9123-9, 27555-1 ####[facility] [id number] [place] [address] [place] Magnesium [facility] Healthcareon [facility]07 Magnesium [Mass/Vol] 2.0 mg/dL Normal 1.7-2.3 [facility] Comment on above: Order Comment: Speci men Type: BLOOD SPECIMENOrdering Facility: [facility] Address: [address] [place] [address] Performed By: #### 1 9123-9, 63993-6 ####[facility] [id number] [address] [place] CNPNon 07-06-2025 CNPN Normal [facility] [place] CNOVon 07-04-2025 CNOV Normal [facility] [place] CBC W Auto Differential pane l (Bld)on 07-03-2025 Basophils (Bld) [#/Vol] 0.07 10*3/uL Normal <0.11 [facility] [place] Comment on above: Order Comment: Speci men Type: BLOOD SPECIMENOrdering Facility: [facility] Address: [address] [place] [address] Performed By: #### 5 7021-8 ####[facility] MILLWNCLIA [id number] [place] [address] [place] Basophils/100 WBC (Bld) 1.1 % Normal [facility] [place] Comment on above: Order Comment: Speci men Type: BLOOD SPECIMENOrdering Facility: [facility] Address: [address] [place] [address] Performed By: #### 5 7021-8 ####[facility] HOSPITALPKLIA [id number] [place] [address] [place] Differential cell count method Nom (Bld) Auto Normal [facility] [place] Comment on above: Order Comment: Speci men Type: BLOOD SPECIMENOrdering Facility: [facility] Address: [address] [place] [address] Performed By: #### 5 7021-8 ####[facility] MILLWNCLIA [id number] [place] [address] [place] Eosinophils (Bld) [#/Vol] 0.20 10*3/uL Normal <0.46 [facility] [place] Comment on above: Order Comment: Speci men Type: BLOOD SPECIMENOrdering Facility: [facility] Address: [address] [place] [address] Performed By: #### 5 7021-8 ####[facility] HOSPITALPKLIA [id number] [place] [address] [place] Eosinophils/100 WBC (Bld) 3.0 % Normal [facility] [place] Comment on above: Order Comment: Speci men Type: BLOOD SPECIMENOrdering Facility: [facility] Address: [address] [place] [address] Performed By: #### 5 7021-8 ####[facility]PITALNCLIA [id number] [place] [address] [place] Erythrocyte distribution width (RBC) [Ratio] 13.3 % Normal 11.5-15.0 [facility] [place] Comment on above: Order Comment: Speci men Type: BLOOD SPECIMENOrdering Facility: [facility] Address: [address] [place] [address] Performed By: #### 5 7021-8 ####[facility]ITALNCLAYTON [facility] [id number] [place] [address] [place] Hematocrit (Bld) [Volume fraction] 45.4 % Normal 39.0-51.0 [facility] [place] Comment on above: Order Comment: Speci men Type: BLOOD SPECIMENOrdering Facility: [facility] Address: [address] [place] [address] Performed By: #### 5 7021-8 ####[facility] [id number] [place] [address] [place] Hemoglobin (Bld) [Mass/Vol] 14.8 g/dL Normal 13.0-17.0 [facility] [place] Comment on above: Order Comment: Speci men Type: BLOOD SPECIMENOrdering Facility: [facility] Address: [address] [place] [address] Performed By: #### 5 7021-8 ####[facility] [id number] [place] [address] [place] Immature granulocytes (Bld) [#/Vol] 0.03 10*3/uL Normal <0.10 [facility] [place] Comment on above: Order Comment: Speci men Type: BLOOD SPECIMENOrdering Facility: [facility] Address: [address] [place] [address] Performed By: #### 5 7021-8 ####[facility] SPENSERROSEY [id number] [place] [address] [place] Immature granulocytes/100 WBC (Bld) 0.5 % Normal [facility] [place] Comment on above: Order Comment: Speci men Type: BLOOD SPECIMENOrdering Facility: [facility] Address: [address] [place] [address] Performed By: #### 5 7021-8 ####[facility]ITALNCL[facility] [id number] [place] [address] [place] Lymphocytes (Bld) [#/Vol] 2.01 10*3/uL Normal 1.00-4.00 [facility] [place] Comment on above: Order Comment: Speci men Type: BLOOD SPECIMENOrdering Facility: [facility] Address: [address] [place] [address] Performed By: #### 5 7021-8 ####[facility]ITALNCLAYTON [facility] [id number] [address] [place] [facility] Lymphocytes/100 WBC (Bld) 30.5 % Normal [facility] [place] Comment on above: Order Comment: Speci men Type: BLOOD SPECIMENOrdering Facility: [facility] Address: [address] [place] [address] Performed By: #### 5 7021-8 ####[facility] [id number] [place] [address] [place] MCH (RBC) [Entitic mass] 29.4 pg Normal 26.0-34.0 [facility] [place] Comment on above: Order Comment: Speci men Type: BLOOD SPECIMENOrdering Facility: [facility] Address: [address] [place] [address] Performed By: #### 5 7021-8 ####[facility]PITALNCLIA [id number] [place] [address] [place] MCHC (RBC) [Mass/Vol] 32.6 g/dL Normal 30.5-36.0 [facility] [place] Comment on above: Order Comment: Speci men Type: BLOOD SPECIMENOrdering Facility: [facility] Address: [address] [place] [address] Performed By: #### 5 7021-8 ####[facility] [id number] [place] [address] [place] MCV (RBC) [Entitic vol] 90.1 fL Normal 80.0-100.0 [facility] [place] Comment on above: Order Comment: Speci men Type: BLOOD SPECIMENOrdering Facility: [facility] Address: [address] [place] [address] Performed By: #### 5 7021-8 ####[facility] [id number] [place] [address] [place] Monocytes (Bld) [#/Vol] 0.58 10*3/uL Normal <0.87 [facility] [place] Comment on above: Order Comment: Speci men Type: BLOOD SPECIMENOrdering Facility: [facility] Address: [address] [place] [address] Performed By: #### 5 7021-8 ####[facility] [id number] [place] [address] [place] Monocytes/100 WBC (Bld) 8.8 % Normal [facility] [place] Comment on above: Order Comment: Speci men Type: BLOOD SPECIMENOrdering Facility: [facility] Address: [address] [place] [address] Performed By: #### 5 7021-8 ####[facility]ITALNCLIA [id number] [place] [address] [place] Neutrophils (Bld) [#/Vol] 3.71 10*3/uL Normal 1.45-7.50 [facility] [place] Comment on above: Order Comment: Speci men Type: BLOOD SPECIMENOrdering Facility: [facility] Address: [address] [place] [address] Performed By: #### 5 7021-8 ####[facility] [id number] [place] [address] [place] Neutrophils/100 WBC (Bld) 56.1 % Normal [facility] [place] Comment on above: Order Comment: Speci men Type: BLOOD SPECIMENOrdering Facility: [facility] Address: [address] [place] [address] Performed By: #### 5 7021-8 ####[facility] [id number] [place] [address] [place] Nucleated RBC (Bld) [#/Vol] 10*3/uL Normal <0.01 [facility] [place] Comment on above: Order Comment: Speci men Type: BLOOD SPECIMENOrdering Facility: [facility] Address: [address] [place] [address] Performed By: #### 5 7021-8 ####[facility] [id number] [place] [address] [place] Nucleated RBC/100 WBC (Bld) [Ratio] 0.0 /100 WBC Normal [facility] [place] Comment on above: Order Comment: Speci men Type: BLOOD SPECIMENOrdering Facility: [facility] Address: [address] [place] [address] Performed By: #### 5 7021-8 ####[facility] [id number] [place] [address] [place] Platelet mean volume (Bld) [Entitic vol] 8.6 fL Low 9.0-12.7 [facility] [place] Comment on above: Order Comment: Speci men Type: BLOOD SPECIMENOrdering Facility: [facility] Address: [address] [place] [address] Performed By: #### 5 7021-8 ####[facility] MADHAVNCJOSLYNA [id number] [place] [address] [place] Platelets (Bld) [#/Vol] 259 10*3/uL Normal 150-400 [facility] [place] Comment on above: Order Comment: Speci men Type: BLOOD SPECIMENOrdering Facility: [facility] Address: [address] [place] [address] Performed By: #### 5 7021-8 ####[facility] SPENSERMOUNT SIDNEYNCLIA [id number] [place] [address] [place] RBC (Bld) [#/Vol] 5.04 10*6/uL Normal 4.20-6.00 [facility] Comment on above: Order Comment: Speci men Type: BLOOD SPECIMENOrdering Facility: [facility] Address: [address] [place] [address] Performed By: #### 5 7021-8 ####[facility] SPENSERMOUNT SIDNEYNCLIA [id number] [place] [address] [place] WBC (Bld) [#/Vol] 6.60 10*3/uL Normal 3.70-11.00 [facility] Comment on above: Order Comment: Speci men Type: BLOOD SPECIMENOrdering Facility: [facility] Address: [address] [place] [address] Performed By: #### 5 7021-8 ####[facility]ITALNCLIA [id number] [place] [address] [place] Comprehensive metabolic 2000 panelon 07-03-2025 Albumin [Mass/Vol] 4.1 g/dL Normal 3.9-4.9 [facility] Comment on above: Order Comment: Speci men Type: BLOOD SPECIMENOrdering Facility: [facility] Address: [address] [place] [address] Performed By: #### 2 4323-8, 53565-1 ####[facility] MILLTOWNCLIA [id number] [place] [address] [place] ALP [Catalytic activity/Vol] 68 U/L Normal 38-113 [facility] [place] Comment on above: Order Comment: Speci men Type: BLOOD SPECIMENOrdering Facility: [facility] Address: [address] [place] [address] Performed By: #### 2 4323-8, ####[facility] MILLALVAROWNCLIA [id number] [place] [address] [place] ALT [Catalytic activity/Vol] 22 U/L Normal 10-54 [facility] [place] Comment on above: Order Comment: Speci men Type: BLOOD SPECIMENOrdering Facility: [facility] Address: [address] [place] [address] Performed By: #### 2 4323-8, ####[facility] MILLTOWNCLIA [id number] [place] [address] [place] Anion gap [Moles/Vol] 12 mmol/L Normal 8-15 [facility] [place] Comment on above: Order Comment: Speci men Type: BLOOD SPECIMENOrdering Facility: [facility] Address: [address] [place] [address] Performed By: #### 2 4323-8, ####[facility] MILLTOWNCLIA [id number] [place] [address] [place] AST [Catalytic activity/Vol] 24 U/L Normal 14-40 [facility] [place] Comment on above: Order Comment: Speci men Type: BLOOD SPECIMENOrdering Facility: [facility] Address: [address] [place] [address] Performed By: #### 2 4323-8, ####[facility] HOSPITALALVAROPKLIA [id number] [place] [address] [place] Bilirubin [Mass/Vol] 0.4 mg/dL Normal 0.2-1.3 [facility] Comment on above: Order Comment: Speci men Type: BLOOD SPECIMENOrdering Facility: [facility] Address: [address] [place] [address] Performed By: #### 2 4323-8, ####[facility] MILLTOWNCLIA [id number] [place] [address] [place] Calcium [Mass/Vol] 9.4 mg/dL Normal 8.5-10.2 [facility] Comment on above: Order Comment: Speci men Type: BLOOD SPECIMENOrdering Facility: [facility] Address: [address] [place] [address] Performed By: #### 2 4323-8, ####[facility] MILLTOWNCLIA [id number] [place] [address] [place] Chloride [Moles/Vol] 98 mmol/L Normal 98-107 [facility] Comment on above: Order Comment: Speci men Type: BLOOD SPECIMENOrdering Facility: [facility] Address: [address] [place] [address] Performed By: #### 2 4323-8, ####[facility] MILLTOWNCLIA [id number] [place] [address] [place] CO2 [Moles/Vol] 27 mmol/L Normal 22-30 [facility] [place] Comment on above: Order Comment: Speci men Type: BLOOD SPECIMENOrdering Facility: [facility] Address: [address] [place] [address] Performed By: #### 2 4323-8, ####[facility] MILLTOWNCLIA [id number] [place] [address] [place] Creatinine [Mass/Vol] 0.91 mg/dL Normal 0.73-1.22 [facility] [place] Comment on above: Order Comment: Saira jade Type: BLOOD SPECIMENOrdering Facility: [facility] Address: [address] [place] [address] Performed By: #### 2 4323-8, 81806-1 ####[facility] [id number] [place] [address] [place] eGFRcr SerPlBld CKD-EPI 2020 86 mL/min/1.73m??? Normal >=60 [facility] Comment on above: Order Comment: Saira jade Type: BLOOD SPECIMENOrdering Facility: [facility] Address: [address] [place] [address] Result Comment: Yesenia mated Glomerular Filtration Rate (eGFR) is calculated using the 2020 CKD-EPI creatinine equation. This equation utilizes serum creatinine, sex, and age as parameters. The creatinine assay has traceable calibration to isotope dilution-mass spectrometry. Refer to KDIGO guidelines for clinical interpretation. In patients with unstable renal function, e.g. those with acute kidney injury, the eGFR may not accurately reflect actual GFR. Performed By: #### 2 4323-8, ####[facility] [id number] [place] [address] [place] Glucose [Mass/Vol] 141 mg/dL High 74-99 [facility] Comment on above: Order Comment: Saira jade Type: BLOOD SPECIMENOrdering Facility: [facility] Address: [address] [place] [address] Result Comment: The [place] Diabetes Association (ADA) provides guidance for cutoff values for fasting glucose and random glucose. The ADA defines fasting as no caloric intake for at least 8 hours. Fasting plasma glucose results between 100 to 125 mg/dL indicate increased risk for diabetes (prediabetes).Fasting plasma glucose results greater than or equal to 126 mg/dL meet the criteria for diagnosis of diabetes. In the absence of unequivocal hyperglycemia, results should be confirmed by repeat testing. In a patient with classic symptoms of hyperglycemia or hyperglycemic crisis, random plasma glucose results greater than or equal to 200 mg/dL meet the criteria for diagnosis of diabetes.Reference: Standards of Medical Care in Diabetes 2016, [place] [employer]. Diabetes Care. 2016.39(Suppl 1). Performed By: #### 2 432-8, ####[facility]OSPITALNCLIRalph [id number] [place] [address] [place] Potassium [Moles/Vol] 4.1 mmol/L Normal 3.7-5.1 [facility] Comment on above: Order Comment: Speci men Type: BLOOD SPECIMENOrdering Facility: [facility] Address: [address] [place] [address] Performed By: #### 2 4328, ####[facility]ITALNCL[facility] [id number] [place] [address] [place] Protein [Mass/Vol] 6.7 g/dL Normal 6.3-8.0 [facility] Comment on above: Order Comment: Speci men Type: BLOOD SPECIMENOrdering Facility: [facility] Address: [address] [place] [address] Performed By: #### 2 4323-04, ####[facility] [id number] [place] [address] [place] Sodium [Moles/Vol] 137 mmol/L Normal 136-144 [facility] Comment on above: Order Comment: Speci men Type: BLOOD SPECIMENOrdering Facility: [facility] Address: [address] [place], [place] [address] Performed By: #### 2 4323-, ####[facility] [id number] [place] [address] [place] Urea nitrogen [Mass/Vol] 11 mg/dL Normal 9-24 [facility] Comment on above: Order Comment: Speci men Type: BLOOD SPECIMENOrdering Facility: [facility] Address: [address] [place] [address] Performed By: #### 2 4323-8, 43085-7 ####[facility] HOSPITALKASIAA [id number] [place] [address] [place] Magnesium SerPl-mCncon 07-03 Magnesium [Mass/Vol] 2.0 mg/dL Normal 1.7-2.3 [facility] Comment on above: Order Comment: Speci men Type: BLOOD SPECIMENOrdering Facility: [facility] Address: [address] [place] [address] Performed By: #### 2 4323-8, 90013-5 ####[facility] HOSPITALNCLI [id number] [place] [address] [place] CNOVon 06-28-2025 CNOV Normal [facility] CNPNon 06-23-2025 CNPN Normal [facility] CNCNPATEDon 06-20-2025 CNCNPATED Normal [facility] CNNURSEon 06-20-2025 CNNURSE Normal [facility] CNPNon 06-12-2025 CNPN Normal [facility] CNOVon 06-07-2025 CNOV Normal [facility] CBC W Auto Differential pane l (Bld)on 06-06-2025 Basophils (Bld) [#/Vol] 0.10 10*3/uL Normal <0.11 [facility] Comment on above: Order Comment: Speci men Type: BLOOD SPECIMENOrdering Facility: [facility] Address: [address] [place] [address] Performed By: #### 5 7021-8 ####[facility] [id number] [place] [address] [place] Basophils/100 WBC (Bld) 1.2 % Normal [facility] Comment on above: Order Comment: Speci men Type: BLOOD SPECIMENOrdering Facility: [facility] Address: [address] [place] [address] Performed By: #### 5 7021-8 ####[facility] SPENSERSusyPKLIA [id number] [place] [address] [place] Differential cell count method Nom (Bld) Auto Normal [facility] Comment on above: Order Comment: Speci men Type: BLOOD SPECIMENOrdering Facility: [facility] Address: [address] [place] [address] Performed By: #### 5 7021-8 ####[facility]OSPITALPKLIA [id number] [place] [address] [place] Eosinophils (Bld) [#/Vol] 0.44 10*3/uL Normal <0.46 [facility] Comment on above: Order Comment: Speci men Type: BLOOD SPECIMENOrdering Facility: [facility] Address: [address] [place] [address] Performed By: #### 5 7021-8 ####[facility]OSPITALKASIAA [id number] [place] [address] [place] Eosinophils/100 WBC (Bld) 5.3 % Normal [facility] Comment on above: Order Comment: Speci men Type: BLOOD SPECIMENOrdering Facility: [facility] Address: [address] [place] [address] Performed By: #### 5 7021-8 ####[facility]OSPITALPKLIA [id number] [place] [address] [place] Erythrocyte distribution width (RBC) [Ratio] 14.1 % Normal 11.5-15.0 [facility] Comment on above: Order Comment: Speci men Type: BLOOD SPECIMENOrdering Facility: [facility] Address: [address] [place] [address] Performed By: #### 5 7021-8 ####[facility] HOSPITALNCLIA [id number] [place] [address] [place] Hematocrit (Bld) [Volume fraction] 41.1 % Normal 39.0-51.0 [facility] Comment on above: Order Comment: Speci men Type: BLOOD SPECIMENOrdering Facility: [facility] Address: [address] [place] [address] Performed By: #### 5 7021-8 ####[facility] HOSPITALPINKY [id number] [place] [address] [place] Hemoglobin (Bld) [Mass/Vol] 13.9 g/dL Normal 13.0-17.0 [facility] Comment on above: Order Comment: Speci men Type: BLOOD SPECIMENOrdering Facility: [facility] Address: [address] [place] [address] Performed By: #### 5 7021-8 ####[facility] HOSPITALNCMARLENE [id number] [place] [address] [place] Immature granulocytes (Bld) [#/Vol] 0.03 10*3/uL Normal <0.10 [facility] Comment on above: Order Comment: Speci men Type: BLOOD SPECIMENOrdering Facility: [facility] Address: [address] [place] [address] Performed By: #### 5 7021-8 ####[facility]AREJ[facility]LY[facility] [id number] [place] [address] [place] Immature granulocytes/100 WBC (Bld) 0.4 % Normal [facility] Comment on above: Order Comment: Speci men Type: BLOOD SPECIMENOrdering Facility: [facility] Address: [address] [place] [address] Performed By: #### 5 7021-8 ####[facility] HOSPITALNCLIA [id number] [place] [address] [place] Lymphocytes (Bld) [#/Vol] 2.33 10*3/uL Normal 1.00-4.00 [facility] Comment on above: Order Comment: Speci men Type: BLOOD SPECIMENOrdering Facility: [facility] Address: [address] [place] [address] Performed By: #### 5 7021-8 ####[facility] [id number] [place] [address] [place] Lymphocytes/100 WBC (Bld) 27.9 % Normal [facility] Comment on above: Order Comment: Speci men Type: BLOOD SPECIMENOrdering Facility: [facility] Address: [address] [place] [address] Performed By: #### 5 7021-8 ####[facility] HOSPITALNCMARLENE [id number] [place] [address] [place] MCH (RBC) [Entitic mass] 30.6 pg Normal 26.0-34.0 [facility] Comment on above: Order Comment: Speci men Type: BLOOD SPECIMENOrdering Facility: [facility] Address: [address] [place] [address] Performed By: #### 5 7021-8 ####[facility] HOSPITALNCMARLENE [id number] [place] [address] [place] MCHC (RBC) [Mass/Vol] 33.8 g/dL Normal 30.5-36.0 [facility] Comment on above: Order Comment: Speci men Type: BLOOD SPECIMENOrdering Facility: [facility] Address: [address] [place] [address] Performed By: #### 5 7021-8 ####[facility] HOSPITALNCLIA [id number] [place] [address] [place] MCV (RBC) [Entitic vol] 90.5 fL Normal 80.0-100.0 [facility] Comment on above: Order Comment: Speci men Type: BLOOD SPECIMENOrdering Facility: [facility] Address: [address] [place] [address] Performed By: #### 5 7021-8 ####[facility] MILLTOWNCLIA [id number] [place] [address] [place] Monocytes (Bld) [#/Vol] 0.80 10*3/uL Normal <0.87 [facility] Comment on above: Order Comment: Speci men Type: BLOOD SPECIMENOrdering Facility: [facility] Address: [address] [place] [address] Performed By: #### 5 7021-8 ####[facility]ALTHCAREL[facility] [id number] [place] [address] [place] Monocytes/100 WBC (Bld) 9.6 % Normal [facility] Comment on above: Order Comment: Speci men Type: BLOOD SPECIMENOrdering Facility: [facility] Address: [address] [place] [address] Performed By: #### 5 7021-8 ####[facility]ALTHCAREL[facility] [id number] [place] [address] [place] Neutrophils (Bld) [#/Vol] 4.66 10*3/uL Normal 1.45-7.50 [facility] Comment on above: Order Comment: Speci men Type: BLOOD SPECIMENOrdering Facility: [facility] Address: [address] [place] [address] Performed By: #### 5 7021-8 ####[facility] MILLWNCLIA [id number] [place] [address] [place] Neutrophils/100 WBC (Bld) 55.6 % Normal [facility] Comment on above: Order Comment: Speci men Type: BLOOD SPECIMENOrdering Facility: [facility] Address: [address] [place] [address] Performed By: #### 5 7021-8 ####[facility] HOSPITALNCLIA [id number] [place] [address] [place] Nucleated RBC (Bld) [#/Vol] 10*3/uL Normal <0.01 [facility] Comment on above: Order Comment: Speci men Type: BLOOD SPECIMENOrdering Facility: [facility] Address: [address] [place] [address] Performed By: #### 5 7021-8 ####[facility] HOSPITALNCA [id number] [place] [address] [place] Nucleated RBC/100 WBC (Bld) [Ratio] 0.0 /100 WBC Normal [facility] Comment on above: Order Comment: Speci men Type: BLOOD SPECIMENOrdering Facility: [facility] Address: [address] [place] [address] Performed By: #### 5 7021-8 ####[facility]ITALNCLAY[facility] [id number] [place] [address] [place] Platelet mean volume (Bld) [Entitic vol] 8.6 fL Low 9.0-12.7 [facility] Comment on above: Order Comment: Speci men Type: BLOOD SPECIMENOrdering Facility: [facility] Address: [address] [place] [address] Performed By: #### 5 7021-8 ####[facility] HOSPITALNCLIA [id number] [place] [address] [place] Platelets (Bld) [#/Vol] 227 10*3/uL Normal 150-400 [facility] Comment on above: Order Comment: Speci men Type: BLOOD SPECIMENOrdering Facility: [facility] Address: [address] [place] [address] Performed By: #### 5 7021-8 ####[facility]OSPITALNCLIA [id number] [place] [address] [place] RBC (Bld) [#/Vol] 4.54 10*6/uL Normal 4.20-6.00 [facility] Comment on above: Order Comment: Speci men Type: BLOOD SPECIMENOrdering Facility: [facility] Address: [address] [place] [address] Performed By: #### 5 7021-8 ####[facility] HENNYWNCLIA [id number] [place] [address] [place] WBC (Bld) [#/Vol] 8.36 10*3/uL Normal 3.70-11.00 [facility] Comment on above: Order Comment: Speci men Type: BLOOD SPECIMENOrdering Facility: [facility] Address: [address] [place] [address] Performed By: #### 5 7021-8 ####[facility]PITALNCLIA [id number] [place] [address] [place] CNOVSPon 06-06-2025 CNOVSP Normal [facility] CNPNon 06-06-2025 CNPN Normal [facility] Comprehensive metabolic 2000 panelon 06-06-2025 Albumin [Mass/Vol] 4.1 g/dL Normal 3.9-4.9 [facility] Comment on above: Order Comment: Speci men Type: BLOOD SPECIMENOrdering Facility: [facility] Address: [address] [place] [address] Performed By: #### 2 4323-8 ####[facility]PITALNCLIA [id number] [place] [address] [place] ALP [Catalytic activity/Vol] 78 U/L Normal 38-113 [facility] Comment on above: Order Comment: Speci men Type: BLOOD SPECIMENOrdering Facility: [facility] Address: [address] [place] [address] Performed By: #### 2 4323-8 ####[facility] CLINICWNCLIA [id number] [place] [address] [place] ALT [Catalytic activity/Vol] 17 U/L Normal 10-54 [facility] Comment on above: Order Comment: Speci men Type: BLOOD SPECIMENOrdering Facility: [facility] Address: [address] [place] [address] Performed By: #### 2 4323-8 ####[facility] MILLTOWNCLIA [id number] [place] [address] [place] Anion gap [Moles/Vol] 10 mmol/L Normal 8-15 [facility] Comment on above: Order Comment: Speci men Type: BLOOD SPECIMENOrdering Facility: [facility] Address: [address] [place] [address] Performed By: #### 2 4323-8 ####[facility] MILLTOWPKLIA [id number] [place] [address] [place] AST [Catalytic activity/Vol] 19 U/L Normal 14-40 [facility] Comment on above: Order Comment: Speci men Type: BLOOD SPECIMENOrdering Facility: [facility] Address: [address] [place] [address] Performed By: #### 2 4323-8 ####[facility] MILLWNCLIA [id number] [place] [address] [place] Bilirubin [Mass/Vol] 0.4 mg/dL Normal 0.2-1.3 [facility] Comment on above: Order Comment: Speci men Type: BLOOD SPECIMENOrdering Facility: [facility] Address: [address] [place] [address] Performed By: #### 2 4323-8 ####[facility] MILLTOWNCLIA [id number] [place] [address] [place] Calcium [Mass/Vol] 9.5 mg/dL Normal 8.5-10.2 [facility] Comment on above: Order Comment: Speci men Type: BLOOD SPECIMENOrdering Facility: [facility] Address: [address] [place] [address] Performed By: #### 2 4323-8 ####[facility] MILLTOWNCLIA [id number] [place] [address] [place] Chloride [Moles/Vol] 97 mmol/L Low 98-107 [facility] Comment on above: Order Comment: Speci men Type: BLOOD SPECIMENOrdering Facility: [facility] Address: [address] [place] [address] Performed By: #### 2 4323-8 ####[facility] CLINICWNHLIA [id number] [place] [address] [place] CO2 [Moles/Vol] 28 mmol/L Normal 22-30 [facility] Comment on above: Order Comment: Speci men Type: BLOOD SPECIMENOrdering Facility: [facility] Address: [address] [place] [address] Performed By: #### 2 4323-8 ####[facility]CAREL[facility] [id number] [place] [address] [place] Creatinine [Mass/Vol] 1.09 mg/dL Normal 0.73-1.22 [facility] Comment on above: Order Comment: Speci men Type: BLOOD SPECIMENOrdering Facility: [facility] Address: [address] [place] [address] Performed By: #### 2 4323-8 ####[facility] [id number] [place] [address] [place] eGFRcr SerPlBld CKD-EPI 2020 69 mL/min/1.73m??? Normal >=60 [facility] Comment on above: Order Comment: Speci men Type: BLOOD SPECIMENOrdering Facility: [facility] Address: [address] [place] [address] Result Comment: Yesenia mated Glomerular Filtration Rate (eGFR) is calculated using the 2020 CKD-EPI creatinine equation. This equation utilizes serum creatinine, sex, and age as parameters. The creatinine assay has traceable calibration to isotope dilution-mass spectrometry. Refer to KDIGO guidelines for clinical interpretation. In patients with unstable renal function, e.g. those with acute kidney injury, the eGFR may not accurately reflect actual GFR. Performed By: #### 2 4323-8 ####[facility] SPENSERTOWNCLIA [id number] [place] [address] [place] Glucose [Mass/Vol] 117 mg/dL High 74-99 [facility] Comment on above: Order Comment: Saira jade Type: BLOOD SPECIMENOrdering Facility: [facility] Address: [address] [place] [address] Result Comment: The [place] [employer] (ADA) provides guidance for cutoff values for fasting glucose and random glucose. The ADA defines fasting as no caloric intake for at least 8 hours. Fasting plasma glucose results between 100 to 125 mg/dL indicate increased risk for diabetes (prediabetes).Fasting plasma glucose results greater than or equal to 126 mg/dL meet the criteria for diagnosis of diabetes. In the absence of unequivocal hyperglycemia, results should be confirmed by repeat testing. In a patient with classic symptoms of hyperglycemia or hyperglycemic crisis, random plasma glucose results greater than or equal to 200 mg/dL meet the criteria for diagnosis of diabetes.Reference: Standards of Medical Care in Diabetes 2016, [place] [employer]. Diabetes Care. 2016.39(Suppl 1). Performed By: #### 2 4323-8 ####[facility] SPENSERWNCLIA [id number] [place] [address] [place] Potassium [Moles/Vol] 3.8 mmol/L Normal 3.7-5.1 [facility] Comment on above: Order Comment: Saira jade Type: BLOOD SPECIMENOrdering Facility: [facility] Address: [address] [place] [address] Performed By: #### 2 4323-8 ####[facility] CLINICWNCLIA [id number] [place] [address] [place] Protein [Mass/Vol] 6.4 g/dL Normal 6.3-8.0 [facility] Comment on above: Order Comment: Speci men Type: BLOOD SPECIMENOrdering Facility: [facility] Address: [address] [place] [address] Performed By: #### 2 4323-8 ####[facility] [id number] [place] [address] [place] Sodium [Moles/Vol] 135 mmol/L Low 136-144 [facility] Comment on above: Order Comment: Speci men Type: BLOOD SPECIMENOrdering Facility: [facility] Address: [address] [place] [address] Performed By: #### 2 4323-8 ####[facility] [id number] [place] [address] [place] Urea nitrogen [Mass/Vol] 8 mg/dL Low 9-24 [facility] Comment on above: Order Comment: Speci men Type: BLOOD SPECIMENOrdering Facility: [facility] Address: [address] [place] [address] Performed By: #### 2 4323-8 ####[facility] [id number] [place] [address] [place] HBV core Ab Ser Qlon 025 HBV core Ab Ql (S) Negative Normal Negative [facility] Comment on above: Order Comment: Speci men Type: BLOOD SPECIMENOrdering Facility: [facility] Address: [address] [place] [address] Result Comment: No e vidence of current or past infection with Hepatitis B virus. Should recent infection be suspected, repeat testing may be considered 3-4 weeks after this draw. Performed By: #### 2 2322-2, 5195-3, 61403-7 ####[facility] LABCLIA [id number] [place] [address] [place] HBV surface Ab Ql (S)on HBV surface Ab Qn (S) <8.00 Normal [facility] Comment on above: Order Comment: Speci men Type: BLOOD SPECIMENOrdering Facility: [facility] Address: [address] [place] [address] Result Comment: <8 m IU/mL: No serological evidence of immunity to Hepatitis B Virus.>/= 8 to <12 mIU/mL: No serological evidence of immunity to Hepatitis B Virus.>/= 12 mIU/mL: Consistent with serological evidence of immunity to Hepatitis B Virus. Performed By: #### 2 2322-2, 5195-3, 50314-0 ####[facility] LABIA [id number] [place] [address] [place] HBV surface Ab Ser Qlon HBV surface Ab Ql (S) Negative Normal [facility] Comment on above: Order Comment: Speci men Type: BLOOD SPECIMENOrdering Facility: [facility] Address: [address] [place] [address] Result Comment: No s erological evidence of immunity to Hepatitis B Virus. Performed By: #### 2 2322-2, 5195-3, 02757-2 ####[facility] LABIA [id number] [place] [address] [place] HBV surface Ag Ser Qlon HBV surface Ag Ql (S) Negative Normal Negative [facility] Comment on above: Order Comment: Speci men Type: BLOOD SPECIMENOrdering Facility: [facility] Address: [address] [place] [address] Performed By: #### 2 2322-2, 5195-3, 87055-6 ####[facility] [id number] [place] [address] [place] HCV Ab Ser Qlon 06-06-2025 HCV Ab Ql (S) Negative Normal Negative [facility] Comment on above: Order Comment: Speci men Type: BLOOD SPECIMENOrdering Facility: [facility] Address: [address] [place] [address] Result Comment: The result suggests no evidence of infection with Hepatitis C virus. Should recent infection be suspected, repeat testing may be considered 4-6 weeks after this draw. Performed By: #### 1 6128-1 ####[facility] MARIELLA [id number] [place] [address] [place] CNOVon 06-02-2025 CNOV Normal [facility] CNOVon 05-25-2025 CNOV Normal [facility] CT CHEST WO IVCONon 05-20-20 CT CHEST WO IVCON * * *Final Report* * * DATE OF EXAM: May 20 2025 9:09AM [facility] [place] [facility] - CT CHEST WO IVCON / PROCEDURE REASON: R91.8-Lung nodules * * * * Physician Interpretation * * * * EXAMINATION: CHEST CT WITHOUT CONTRAST CLINICAL HISTORY: Lung nodules Technique: Spiral CT acquisition of the chest from the thoracic inlet to the upper abdomen without contrast. MQ: CTCWO_6 CT Radiation dose: Integrated Dose-length product (DLP) for this visit = 348 mGy*cm CT Dose Reduction Employed: Automated exposure control(AEC) and iterative recon Comparison: 05/09/2024, 04/28/2024 RESULT: Limitations: None. Lines, tubes, and devices: None. Lung parenchyma and airways: There is mild biapical fibrosis. Mild emphysema, with mild, diffuse bronchiectasis and persistent reticulation seen within both lungs. Stable subcentimeter pulmonary nodules. For example, there is a stable, approximately 6 mm nodule within the right lower lobe (series 2, image #169). Other pulmonary nodules are also stable. Volume loss, with atelectasis is seen within the right middle and right lower lobes. Atelectasis within the lingula. Pleural space: No pleural effusion. Lower neck, lymph nodes, and mediastinum: There are prominent, less than 1 cm mediastinal and bilateral hilar lymph nodes, likely reactive. Prominent bilateral axillary lymph nodes are also likely reactive. Heart, pericardium, and thoracic vessels: There is a small hiatal hernia. Atherosclerotic calcifications are present within the thoracic aorta and coronary arteries. Fatty replacement of the intra-atrial septum. The heart is normal in size. No significant pericardial effusion. Bones and soft tissues: There are remote right posterior rib fractures. One involving the right posterior 11th rib is nondilated. Bilateral shoulder DJD. No destructive bony lesion. Upper abdomen: Again seen is approximately 1.9 cm left adrenal myelolipoma (series 2, image #238). A small splenule is seen left upper quadrant. There is approximately 2.3 cm exophytic left renal cyst (series 2 image #274). There is pneumobilia. IMPRESSION: Mild emphysema, with mild diffuse bronchiectasis. Atelectasis within the lingula and right middle lobe. Left basilar atelectasis. Stable subcentimeter pulmonary nodules. There is no new pulmonary nodule. Sequela of remote granulomatous disease. Prominent, less than 1 cm lymph nodes in the chest, likely reactive. Optical Glass Sawyer: [facility]ITALJaymie Transcribe Date/Time: May 20 2025 2:18P Dictated by : ANA NICHOLS MD This examination was interpreted and the report reviewed and electronically signed by: ANA NICHOLS MD on May 20 2025 9:39PM EST [id number]on 05-20 IMPRESSION: Mild emphysema, with mild diffuse bronchiectasis. Atelectasis within the lingula and right middle lobe. Left basilar atelectasis. Stable subcentimeter pulmonary nodules. There is no new pulmonary nodule. Sequela of remote granulomatous disease. Prominent, less than 1 cm lymph nodes in the chest, likely reactive. Optical Glass Sawyer: RUBY Transcribe Date/Time: May 20 2025 2:18P Dictated by : ANA NICHOLS MD This examination was interpreted and the report reviewed and electronically signed by: ANA NICHOLS MD on May 20 2025 9:39PM [facility] * * *Final Report* * * DATE OF EXAM: May 20 2025 9:09AM [facility] [place] 0541 - CT CHEST WO IVCON / PROCEDURE REASON: R91.8-Lung nodules * * * * Physician Interpretation * * * * EXAMINATION: CHEST CT WITHOUT CONTRAST CLINICAL HISTORY: Lung nodules Technique: Spiral CT acquisition of the chest from the thoracic inlet to the upper abdomen without contrast. MQ: CTCWO_6 CT Radiation dose: Integrated Dose-length product (DLP) for this visit = 348 mGy*cm CT Dose Reduction Employed: Automated exposure control(AEC) and iterative recon Comparison: 05/09/2024, 04/28/2024 RESULT: Limitations: None. Lines, tubes, and devices: None. Lung parenchyma and airways: There is mild biapical fibrosis. Mild emphysema, with mild, diffuse bronchiectasis and persistent reticulation seen within both lungs. Stable subcentimeter pulmonary nodules. For example, there is a stable, approximately 6 mm nodule within the right lower lobe (series 2, image #169). Other pulmonary nodules are also stable. Volume loss, with atelectasis is seen within the right middle and right lower lobes. Atelectasis within the lingula. Pleural space: No pleural effusion. Lower neck, lymph nodes, and mediastinum: There are prominent, less than 1 cm mediastinal and bilateral hilar lymph nodes, likely reactive. Prominent bilateral axillary lymph nodes are also likely reactive. Heart, pericardium, and thoracic vessels: There is a small hiatal hernia. Atherosclerotic calcifications are present within the thoracic aorta and coronary arteries. Fatty replacement of the intra-atrial septum. The heart is normal in size. No significant pericardial effusion. Bones and soft tissues: There are remote right posterior rib fractures. One involving the right posterior 11th rib is nondilated. Bilateral shoulder DJD. No destructive bony lesion. Upper abdomen: Again seen is approximately 1.9 cm left adrenal myelolipoma (series 2, image #238). A small splenule is seen left upper quadrant. There is approximately 2.3 cm exophytic left renal cyst (series 2 image #274). There is pneumobilia. [facility] Provider, [facility] - 05/20/2025 * * *Final Report* * * DATE OF EXAM: May 20 2025 9:09AM [facility] [place] - CT CHEST WO IVCON / PROCEDURE REASON: R91.8-Lung nodules * * * * Physician Interpretation * * * * EXAMINATION: CHEST CT WITHOUT CONTRAST CLINICAL HISTORY: Lung nodules Technique: Spiral CT acquisition of the chest from the thoracic inlet to the upper abdomen without contrast. MQ: [id number]_6 CT Radiation dose: Integrated Dose-length product (DLP) for this visit = 348 mGy*cm CT Dose Reduction Employed: Automated exposure control(AEC) and iterative recon Comparison: 05/09/2024, 04/28/2024 RESULT: Limitations: None. Lines, tubes, and devices: None. Lung parenchyma and airways: There is mild biapical fibrosis. Mild emphysema, with mild, diffuse bronchiectasis and persistent reticulation seen within both lungs. Stable subcentimeter pulmonary nodules. For example, there is a stable, approximately 6 mm nodule within the right lower lobe (series 2, image #169). Other pulmonary nodules are also stable. Volume loss, with atelectasis is seen within the right middle and right lower lobes. Atelectasis within the lingula. Pleural space: No pleural effusion. Lower neck, lymph nodes, and mediastinum: There are prominent, less than 1 cm mediastinal and bilateral hilar lymph nodes, likely reactive. Prominent bilateral axillary lymph nodes are also likely reactive. Heart, pericardium, and thoracic vessels: There is a small hiatal hernia. Atherosclerotic calcifications are present within the thoracic aorta and coronary arteries. Fatty replacement of the intra-atrial septum. The heart is normal in size. No significant pericardial effusion. Bones and soft tissues: There are remote right posterior rib fractures. One involving the right posterior 11th rib is nondilated. Bilateral shoulder DJD. No destructive bony lesion. Upper abdomen: Again seen is approximately 1.9 cm left adrenal myelolipoma (series 2, image #238). A small splenule is seen left upper quadrant. There is approximately 2.3 cm exophytic left renal cyst (series 2 image #274). There is pneumobilia. IMPRESSION IMPRESSION: Mild emphysema, with mild diffuse bronchiectasis. Atelectasis within the lingula and right middle lobe. Left basilar atelectasis. Stable subcentimeter pulmonary nodules. There is no new pulmonary nodule. Sequela of remote granulomatous disease. Prominent, less than 1 cm lymph nodes in the chest, likely reactive. [employer] Sawyer: PSCB Transcribe Date/Time: May 20 2025 2:18P Dictated by : ANA NICHOLS MD This examination was interpreted and the report reviewed and electronically signed by: ANA NICHOLS MD on May 20 2025 9:39PM EST [facility] Radiology Study observation (narrative) [facility] CT Chest WO contrastOrdered By: Ccf Provider on 05-20-2025 [facility] CNOVon 05-19-2025 CNOV Normal [facility] CNPNon 05-19-2025 CNPN Normal [facility] CASE MANAGEMon 05-10-2025 CASE MANAGEM Normal [facility] CNDSon 05-10-2025 CNDS Normal [facility] Basic metabolic 2000 panelon 05-09-2025 Anion gap [Moles/Vol] 11 mmol/L Normal 8-15 [facility] Comment on above: Order Comment: Speci men Type: BLOOD SPECIMENOrdering Facility: [facility] Address: [address] [place] [address] Performed By: #### 2 4321-2, , 2776-09 ####[facility] LABCLIA [id number] [place] [address] [place] Calcium [Mass/Vol] 8.9 mg/dL Normal 8.5-10.2 [facility] Comment on above: Order Comment: Speci men Type: BLOOD SPECIMENOrdering Facility: [facility] Address: [address] [place] [address] Performed By: #### 2 4321-2, , 2776-09 ####[facility] LABCLIA [id number] [address] [address] [place] Chloride [Moles/Vol] 98 mmol/L Normal 98-107 [facility] Comment on above: Order Comment: Speci men Type: BLOOD SPECIMENOrdering Facility: [facility] Address: [address] [place], [place] [address] Performed By: #### 2 4321-2, , 2776-09 ####[facility] LABCLIA [id number] [address] [address] [place] CO2 [Moles/Vol] 24 mmol/L Normal 22-30 [facility] Comment on above: Order Comment: Speci men Type: BLOOD SPECIMENOrdering Facility: [facility] Address: [address] [place], [place] [address] Performed By: #### 2 4321-2, , 2776- ####[facility] LABCLIA [id number] [address] [address] [place] Creatinine [Mass/Vol] 0.99 mg/dL Normal 0.73-1.22 [facility] Comment on above: Order Comment: Saira jade Type: BLOOD SPECIMENOrdering Facility: [facility] Address: [address] [place] [address] Performed By: #### 2 4321-2, , 2776-09 ####[facility] LABIA [id number] [address] [address] [place] eGFRcr SerPlBld CKD-EPI 2020 78 mL/min/1.73m??? Normal >=60 [facility] Comment on above: Order Comment: Saira jade Type: BLOOD SPECIMENOrdering Facility: [facility] Address: [address] [place] [address] Result Comment: Yesenia mated Glomerular Filtration Rate (eGFR) is calculated using the 2020 CKD-EPI creatinine equation. This equation utilizes serum creatinine, sex, and age as parameters. The creatinine assay has traceable calibration to isotope dilution-mass spectrometry. Refer to KDIGO guidelines for clinical interpretation. In patients with unstable renal function, e.g. those with acute kidney injury, the eGFR may not accurately reflect actual GFR. Performed By: #### 2 4321-2, , 2776-09 ####[facility] LABIA [id number] [address] [address] [place] Glucose [Mass/Vol] 104 mg/dL High 74-99 [facility] Comment on above: Order Comment: Saira yasmany Type: BLOOD SPECIMENOrdering Facility: [facility] Address: [address] [place] [address] Result Comment: The [place] Diabetes [employer] (ADA) provides guidance for cutoff values for fasting glucose and random glucose. The ADA defines fasting as no caloric intake for at least 8 hours. Fasting plasma glucose results between 100 to 125 mg/dL indicate increased risk for diabetes (prediabetes).Fasting plasma glucose results greater than or equal to 126 mg/dL meet the criteria for diagnosis of diabetes. In the absence of unequivocal hyperglycemia, results should be confirmed by repeat testing. In a patient with classic symptoms of hyperglycemia or hyperglycemic crisis, random plasma glucose results greater than or equal to 200 mg/dL meet the criteria for diagnosis of diabetes.Reference: Standards of Medical Care in Diabetes 2016, [place] [employer]. Diabetes Care. 2016.39(Suppl 1). Performed By: #### 2 1-2, , 2776-09 ####[facility] LABCLIA [id number] [place] [id number] [place] Potassium [Moles/Vol] 3.8 mmol/L Normal 3.7-5.1 [facility] Comment on above: Order Comment: Speci men Type: BLOOD SPECIMENOrdering Facility: [facility] Address: [address] [place] [address] Performed By: #### 2 4320-10, , 2776-09 ####[facility] LABIA [id number] [place] [id number] [place] Sodium [Moles/Vol] 133 mmol/L Low 136-144 [facility] Comment on above: Order Comment: Laurai yasmany Type: BLOOD SPECIMENOrdering Facility: [facility] Address: [address] [place] [address] Performed By: #### 2 4320-2, , 2776-09 ####[facility] LABCLIA [id number] [place] [id number] [place] Urea nitrogen [Mass/Vol] 14 mg/dL Normal 9-24 [facility] Comment on above: Order Comment: Speci men Type: BLOOD SPECIMENOrdering Facility: [facility] Address: [address] [place] [address] Performed By: #### 2 4320-2, , 2776-09 ####[facility] LABCLIA [id number] [address] [address] [place] CBC panel Auto (Bld)on 05-09 Erythrocyte distribution width (RBC) [Ratio] 14.0 % Normal 11.5-15.0 [facility] Comment on above: Order Comment: Speci men Type: BLOOD SPECIMENOrdering Facility: [facility] Address: [address] [place] [address] Performed By: #### 5 8410-2 ####[facility] LABCLIA [id number] [place] [address] [place] Hematocrit (Bld) [Volume fraction] 33.1 % Low 39.0-51.0 [facility] Comment on above: Order Comment: Speci men Type: BLOOD SPECIMENOrdering Facility: [facility] Address: [address] [place] [address] Performed By: #### 5 8410-2 ####[facility] LABIA [id number] [address] [place] Hemoglobin (Bld) [Mass/Vol] 11.0 g/dL Low 13.0-17.0 [facility] Comment on above: Order Comment: Speci men Type: BLOOD SPECIMENOrdering Facility: [facility] Address: [address] [place] [address] Performed By: #### 5 8410-2 ####[facility] LABIA [id number] [place] [address] [place] MCH (RBC) [Entitic mass] 30.2 pg Normal 26.0-34.0 [facility] Comment on above: Order Comment: Speci men Type: BLOOD SPECIMENOrdering Facility: [facility] Address: [address] [place] [address] Performed By: #### 5 8410-2 ####[facility] LABIA [id number] [place] [address] [place] MCHC (RBC) [Mass/Vol] 33.2 g/dL Normal 30.5-36.0 [facility] Comment on above: Order Comment: Speci men Type: BLOOD SPECIMENOrdering Facility: [facility] Address: [address] [place] [address] Performed By: #### 5 8410-2 ####[facility] [id number] [place] [address] [place] MCV (RBC) [Entitic vol] 90.9 fL Normal 80.0-100.0 [facility] Comment on above: Order Comment: Speci men Type: BLOOD SPECIMENOrdering Facility: [facility] Address: [address] [place] [address] Performed By: #### 5 8410-2 ####[facility] [id number] [place] [address] [place] Nucleated RBC (Bld) [#/Vol] 10*3/uL Normal <0.01 [facility] Comment on above: Order Comment: Speci men Type: BLOOD SPECIMENOrdering Facility: [facility] Address: [address] [place] [address] Performed By: #### 5 8410-2 ####[facility] [id number] [place] [address] [place] Platelet mean volume (Bld) [Entitic vol] 9.0 fL Normal 9.0-12.7 [facility] Comment on above: Order Comment: Speci men Type: BLOOD SPECIMENOrdering Facility: [facility] Address: [address] [place] [address] Performed By: #### 5 8410-2 ####[facility] [id number] [place] [id number] [place] Platelets (Bld) [#/Vol] 217 10*3/uL Normal 150-400 [facility] Comment on above: Order Comment: Speci men Type: BLOOD SPECIMENOrdering Facility: [facility] Address: [address] [place] [address] Performed By: #### 5 8410-2 ####[facility] LABIA [id number] [place] [id number] [place] RBC (Bld) [#/Vol] 3.64 10*6/uL Low 4.20-6.00 [facility] Comment on above: Order Comment: Speci men Type: BLOOD SPECIMENOrdering Facility: [facility] Address: [address] [place] [address] Performed By: #### 5 8410-2 ####[facility] LABIA [id number] [place] [id number] [place] WBC (Bld) [#/Vol] 6.23 10*3/uL Normal 3.70-11.00 [facility] Comment on above: Order Comment: Speci men Type: BLOOD SPECIMENOrdering Facility: [facility] Address: [address] [place] [address] Performed By: #### 5 8410-2 ####[facility] [id number] [place] [id number] [place] CNPNon 05-09-2025 CNPN Normal [facility] Magnesium SerPl-mCncon 05-09 Magnesium [Mass/Vol] 2.1 mg/dL Normal 1.7-2.3 [facility] Comment on above: Order Comment: Speci men Type: BLOOD SPECIMENOrdering Facility: [facility] Address: [address] [place] [address] Performed By: #### 2 4321-2, 91416-7, 2777-1 ####[facility] [id number] [place] [address] [place] Phosphate SerPl-mCncon 05-09 Phosphate [Mass/Vol] 2.8 mg/dL Normal 2.7-4.8 [facility] Comment on above: Order Comment: Speci men Type: BLOOD SPECIMENOrdering Facility: [facility] Address: [address] [place] [address] Performed By: #### 2 4321-2, , 2776- ####[facility] LABCLIA [id number] [address] [address] [place] Basic metabolic 2000 panelon 05-08-2025 Anion gap [Moles/Vol] 10 mmol/L Normal 8-15 [facility] Comment on above: Order Comment: Speci men Type: BLOOD SPECIMENOrdering Facility: [facility] Address: [address] [place], [place] [address] Performed By: #### 2 4321-2, , 2776-09 ####[facility] LABIA [id number] [place] [id number] [place] Calcium [Mass/Vol] 8.9 mg/dL Normal 8.5-10.2 [facility] Comment on above: Order Comment: Speci men Type: BLOOD SPECIMENOrdering Facility: [facility] Address: [address] [place], [place] [address] Performed By: #### 2 4321-2, , 2776-09 ####[facility] LABIA [id number] [place] [id number] [place] Chloride [Moles/Vol] 99 mmol/L Normal 98-107 [facility] Comment on above: Order Comment: Speci men Type: BLOOD SPECIMENOrdering Facility: [facility] Address: [address] [place] [address] Performed By: #### 2 4321-2, , 2776-09 ####[facility] LABIA [id number] [address] [address] [place] CO2 [Moles/Vol] 24 mmol/L Normal 22-30 [facility] Comment on above: Order Comment: Speci men Type: BLOOD SPECIMENOrdering Facility: [facility] Address: [address] [place] [address] Performed By: #### 2 4321-2, , 2776-09 ####[facility] LABIA [id number] [address] [address] [place] Creatinine [Mass/Vol] 0.90 mg/dL Normal 0.73-1.22 [facility] Comment on above: Order Comment: Speci men Type: BLOOD SPECIMENOrdering Facility: [facility] Address: [address] [place] [address] Performed By: #### 2 4321-2, , 2776-09 ####[facility] LABIA [id number] [place] [address] [place] eGFRcr SerPlBld CKD-EPI 2020 88 mL/min/1.73m??? Normal >=60 [facility] Comment on above: Order Comment: Laura yasmany Type: BLOOD SPECIMENOrdering Facility: [facility] Address: [address] [place] [address] Result Comment: Yesenia mated Glomerular Filtration Rate (eGFR) is calculated using the 2020 CKD-EPI creatinine equation. This equation utilizes serum creatinine, sex, and age as parameters. The creatinine assay has traceable calibration to isotope dilution-mass spectrometry. Refer to KDIGO guidelines for clinical interpretation. In patients with unstable renal function, e.g. those with acute kidney injury, the eGFR may not accurately reflect actual GFR. Performed By: #### 2 4321-2, , 2776-09 ####[facility] LABIA [id number] [address] [address] [place] Glucose [Mass/Vol] 107 mg/dL High 74-99 [facility] Comment on above: Order Comment: Speci men Type: BLOOD SPECIMENOrdering Facility: [facility] Address: [address] [place] [address] Result Comment: The [place] Diabetes Association (ADA) provides guidance for cutoff values for fasting glucose and random glucose. The ADA defines fasting as no caloric intake for at least 8 hours. Fasting plasma glucose results between 100 to 125 mg/dL indicate increased risk for diabetes (prediabetes).Fasting plasma glucose results greater than or equal to 126 mg/dL meet the criteria for diagnosis of diabetes. In the absence of unequivocal hyperglycemia, results should be confirmed by repeat testing. In a patient with classic symptoms of hyperglycemia or hyperglycemic crisis, random plasma glucose results greater than or equal to 200 mg/dL meet the criteria for diagnosis of diabetes.Reference: Standards of Medical Care in Diabetes 2016, [place] [employer]. Diabetes Care. 2016.39(Suppl 1). Performed By: #### 2 1-2, , 2776-09 ####[facility] LABIA [id number] [address] [address] [place] Potassium [Moles/Vol] 3.8 mmol/L Normal 3.7-5.1 [facility] Comment on above: Order Comment: Laurai men Type: BLOOD SPECIMENOrdering Facility: [facility] Address: [address] [place] [address] Performed By: #### 2 4320-10, , 2776-09 ####[facility] LABIA [id number] [place] [id number] [place] Sodium [Moles/Vol] 133 mmol/L Low 136-144 [facility] Comment on above: Order Comment: Laurai yasmany Type: BLOOD SPECIMENOrdering Facility: [facility] Address: [address] [place] [address] Performed By: #### 2 4320-2, , 2776-09 ####[facility] LABIA [id number] [place] [id number] [place] Urea nitrogen [Mass/Vol] 10 mg/dL Normal 9-24 [facility] Comment on above: Order Comment: Laurai men Type: BLOOD SPECIMENOrdering Facility: [facility] Address: [address] [place] [address] Performed By: #### 2 432-2, , 2776-09 ####[facility] LABCLIA [id number] [address], [facility] [place] CASE MANAGEMon 05-08-2025 CASE MANAGEM Normal [facility] CASE MANAGEM Normal [facility] CBC panel Auto (Bld)on 05-08 Erythrocyte distribution width (RBC) [Ratio] 14.3 % Normal 11.5-15.0 [facility] Comment on above: Order Comment: Speci men Type: BLOOD SPECIMENOrdering Facility: [facility] Address: [address] [place] [address] Performed By: #### 5 8410-2 ####[facility] LABIA [id number] [address], [place] [address] [place] Hematocrit (Bld) [Volume fraction] 34.6 % Low 39.0-51.0 [facility] Comment on above: Order Comment: Speci men Type: BLOOD SPECIMENOrdering Facility: [facility] Address: [address] [place] [address] Performed By: #### 5 8410-2 ####[facility] LABIA [id number] [address], [place] [address] [place] Hemoglobin (Bld) [Mass/Vol] 11.6 g/dL Low 13.0-17.0 [facility] Comment on above: Order Comment: Speci men Type: BLOOD SPECIMENOrdering Facility: [facility] Address: [address] [place] [address] Performed By: #### 5 8410-2 ####[facility] LABIA [id number] [address], [facility] [place] MCH (RBC) [Entitic mass] 30.2 pg Normal 26.0-34.0 [facility] Comment on above: Order Comment: Speci men Type: BLOOD SPECIMENOrdering Facility: [facility] Address: [address] [place] [address] Performed By: #### 5 8410-2 ####[facility] LABIA [id number] [address] [place] MCHC (RBC) [Mass/Vol] 33.5 g/dL Normal 30.5-36.0 [facility] Comment on above: Order Comment: Speci men Type: BLOOD SPECIMENOrdering Facility: [facility] Address: [address] [place] [address] Performed By: #### 5 8410-2 ####[facility] LABIA [id number] [place] [address] [place] MCV (RBC) [Entitic vol] 90.1 fL Normal 80.0-100.0 [facility] Comment on above: Order Comment: Speci men Type: BLOOD SPECIMENOrdering Facility: [facility] Address: [address] [place] [address] Performed By: #### 5 8410-2 ####[facility] LABCLIA [id number] [place] [address] [place] Nucleated RBC (Bld) [#/Vol] 10*3/uL Normal <0.01 [facility] Comment on above: Order Comment: Speci men Type: BLOOD SPECIMENOrdering Facility: [facility] Address: [address] [place] [address] Performed By: #### 5 8410-2 ####[facility] LABIA [id number] [place] [address] [place] Platelet mean volume (Bld) [Entitic vol] 9.0 fL Normal 9.0-12.7 [facility] Comment on above: Order Comment: Speci men Type: BLOOD SPECIMENOrdering Facility: [facility] Address: [address] [place] [address] Performed By: #### 5 8410-2 ####[facility] LABCLIA [id number] [place] [address] [place] Platelets (Bld) [#/Vol] 197 10*3/uL Normal 150-400 [facility] Comment on above: Order Comment: Speci men Type: BLOOD SPECIMENOrdering Facility: [facility] Address: [address] [place] [address] Performed By: #### 5 8410-2 ####[facility] LABCLIA [id number] [place] [address] [place] RBC (Bld) [#/Vol] 3.84 10*6/uL Low 4.20-6.00 [facility] Comment on above: Order Comment: Speci men Type: BLOOD SPECIMENOrdering Facility: [facility] Address: [address] [place] [address] Performed By: #### 5 8410-2 ####[facility] LABCLIA [id number] [place] [address] [place] WBC (Bld) [#/Vol] 8.47 10*3/uL Normal 3.70-11.00 [facility] Comment on above: Order Comment: Speci men Type: BLOOD SPECIMENOrdering Facility: [facility] Address: [address] [place] [address] Performed By: #### 5 8410-2 ####[facility] LABIA [id number] [place] [address] [place] Magnesium SerPl-mCncon 05-08 Magnesium [Mass/Vol] 2.1 mg/dL Normal 1.7-2.3 [facility] Comment on above: Order Comment: Speci men Type: BLOOD SPECIMENOrdering Facility: [facility] Address: [address] [place] [address] Performed By: #### 2 4321-2, 99246-7, 2777-1 ####[facility] LABCLIA [id number] [place] [address] [place] Phosphate SerPl-mCncon 05-08 Phosphate [Mass/Vol] 2.8 mg/dL Normal 2.7-4.8 [facility] Comment on above: Order Comment: Speci men Type: BLOOD SPECIMENOrdering Facility: [facility] Address: [address] [place] [address] Performed By: #### 2 4321-2, , 2776-09 ####[facility] LABCLIA [id number] [facility] [place] [place], [place] [address] [place] THERAPY NTon 05-08-2025 THERAPY NT Normal [facility] THERAPY NT Normal [facility] Basic metabolic 2000 panelon 05-07-2025 Anion gap [Moles/Vol] 13 mmol/L Normal 8-15 [facility] Comment on above: Order Comment: Speci men Type: BLOOD SPECIMENOrdering Facility: [facility] Address: [address] [place] [address] Performed By: #### 2 4321-2, , 2776-09 ####[facility] LABCLIA [id number] [address], [facility] [place] Calcium [Mass/Vol] 8.5 mg/dL Normal 8.5-10.2 [facility] Comment on above: Order Comment: Speci men Type: BLOOD SPECIMENOrdering Facility: [facility] Address: [address] [place], [place] [address] Performed By: #### 2 4321-2, , 2776-09 ####[facility] LABCLIA [id number] [facility] [address] [place] [address] [place] Chloride [Moles/Vol] 98 mmol/L Normal 98-107 [facility] Comment on above: Order Comment: Speci men Type: BLOOD SPECIMENOrdering Facility: [facility] Address: [address] [place], [place] [address] Performed By: #### 2 4321-2, , 2776-09 ####[facility] LABCLIA [id number] [facility] [address] [place] [address] [place] CO2 [Moles/Vol] 22 mmol/L Normal 22-30 [facility] Comment on above: Order Comment: Speci men Type: BLOOD SPECIMENOrdering Facility: [facility] Address: [address] [place] [address] Performed By: #### 2 4321-2, , 2776-09 ####[facility] LABCLIA [id number] [address] [address] [place] Creatinine [Mass/Vol] 0.81 mg/dL Normal 0.73-1.22 [facility] Comment on above: Order Comment: Speci men Type: BLOOD SPECIMENOrdering Facility: [facility] Address: [address] [place] [address] Performed By: #### 2 4321-2, , 2776-09 ####[facility] LABCLIA [id number] [place] [address] [place] eGFRcr SerPlBld CKD-EPI 2020 91 mL/min/1.73m??? Normal >=60 [facility] Comment on above: Order Comment: Speci men Type: BLOOD SPECIMENOrdering Facility: [facility] Address: [address] [place] [address] Result Comment: Yesenia mated Glomerular Filtration Rate (eGFR) is calculated using the 2020 CKD-EPI creatinine equation. This equation utilizes serum creatinine, sex, and age as parameters. The creatinine assay has traceable calibration to isotope dilution-mass spectrometry. Refer to KDIGO guidelines for clinical interpretation. In patients with unstable renal function, e.g. those with acute kidney injury, the eGFR may not accurately reflect actual GFR. Performed By: #### 2 4321-2, , 2776-09 ####[facility] LABCLIA [id number] [address] [address] [place] Glucose [Mass/Vol] 103 mg/dL High 74-99 [facility] Comment on above: Order Comment: Speci men Type: BLOOD SPECIMENOrdering Facility: [facility] Address: [address] [place] [address] Result Comment: The [place] Diabetes [employer] (ADA) provides guidance for cutoff values for fasting glucose and random glucose. The ADA defines fasting as no caloric intake for at least 8 hours. Fasting plasma glucose results between 100 to 125 mg/dL indicate increased risk for diabetes (prediabetes).Fasting plasma glucose results greater than or equal to 126 mg/dL meet the criteria for diagnosis of diabetes. In the absence of unequivocal hyperglycemia, results should be confirmed by repeat testing. In a patient with classic symptoms of hyperglycemia or hyperglycemic crisis, random plasma glucose results greater than or equal to 200 mg/dL meet the criteria for diagnosis of diabetes.Reference: Standards of Medical Care in Diabetes 2016, [place] [employer]. Diabetes Care. 2016.39(Suppl 1). Performed By: #### 2 4321-2, , 2776-09 ####[facility] LABCLIA [id number] [place] [address] [place] Potassium [Moles/Vol] 3.2 mmol/L Low 3.7-5.1 [facility] Comment on above: Order Comment: Speci men Type: BLOOD SPECIMENOrdering Facility: [facility] Address: [address] [place] [address] Performed By: #### 2 432-2, , 2776-09 ####[facility] LABIA [id number] [place] [address] [place] Sodium [Moles/Vol] 133 mmol/L Low 136-144 [facility] Comment on above: Order Comment: Speci men Type: BLOOD SPECIMENOrdering Facility: [facility] Address: [address] [place] [address] Performed By: #### 2 4321-2, , 2776-09 ####[facility] LABIA [id number] [place] [address] [place] Urea nitrogen [Mass/Vol] 7 mg/dL Low 9-24 [facility] Comment on above: Order Comment: Speci men Type: BLOOD SPECIMENOrdering Facility: [facility] Address: [address] [place] [address] Performed By: #### 2 4321-2, 91677-4, 2777-1 ####[facility] LAB[facility] [id number] [place] [address] [place] CBC panel Auto (Bld)on 05-07 Erythrocyte distribution width (RBC) [Ratio] 14.2 % Normal 11.5-15.0 [facility] Comment on above: Order Comment: Speci men Type: BLOOD SPECIMENOrdering Facility: [facility] Address: [address] [place] [address] Performed By: #### 5 8410-2 ####[facility] LABH[facility] [id number] [place] [address] [place] Hematocrit (Bld) [Volume fraction] 32.3 % Low 39.0-51.0 [facility] Comment on above: Order Comment: Speci men Type: BLOOD SPECIMENOrdering Facility: [facility] Address: [address] [place] [address] Performed By: #### 5 8410-2 ####[facility] [id number] [place] [address] [place] Hemoglobin (Bld) [Mass/Vol] 11.0 g/dL Low 13.0-17.0 [facility] Comment on above: Order Comment: Speci men Type: BLOOD SPECIMENOrdering Facility: [facility] Address: [address] [place] [address] Performed By: #### 5 8410-2 ####[facility] LABIA [id number] [place] [id number] [place] MCH (RBC) [Entitic mass] 30.2 pg Normal 26.0-34.0 [facility] Comment on above: Order Comment: Speci men Type: BLOOD SPECIMENOrdering Facility: [facility] Address: [address] [place] [address] Performed By: #### 5 8410-2 ####[facility] LABIA [id number] [place] [address] [place] MCHC (RBC) [Mass/Vol] 34.1 g/dL Normal 30.5-36.0 [facility] Comment on above: Order Comment: Speci men Type: BLOOD SPECIMENOrdering Facility: [facility] Address: [address] [place] [address] Performed By: #### 5 8410-2 ####[facility] LABIA [id number] [place] [address] [place] MCV (RBC) [Entitic vol] 88.7 fL Normal 80.0-100.0 [facility] Comment on above: Order Comment: Speci men Type: BLOOD SPECIMENOrdering Facility: [facility] Address: [address] [place] [address] Performed By: #### 5 8410-2 ####[facility] LABIA [id number] [place] [address] [place] Nucleated RBC (Bld) [#/Vol] 10*3/uL Normal <0.01 [facility] Comment on above: Order Comment: Speci men Type: BLOOD SPECIMENOrdering Facility: [facility] Address: [address] [place] [address] Performed By: #### 5 8410-2 ####[facility] LABIA [id number] [place] [address] [place] Platelet mean volume (Bld) [Entitic vol] 9.3 fL Normal 9.0-12.7 [facility] Comment on above: Order Comment: Speci men Type: BLOOD SPECIMENOrdering Facility: [facility] Address: [address] [place] [address] Performed By: #### 5 8410-2 ####[facility] LABIA [id number] [place] [address] [place] Platelets (Bld) [#/Vol] 173 10*3/uL Normal 150-400 [facility] Comment on above: Order Comment: Speci men Type: BLOOD SPECIMENOrdering Facility: [facility] Address: [address] [place] [address] Performed By: #### 5 8410-2 ####[facility] LABCLIA [id number] [place] [address] [place] RBC (Bld) [#/Vol] 3.64 10*6/uL Low 4.20-6.00 [facility] Comment on above: Order Comment: Speci men Type: BLOOD SPECIMENOrdering Facility: [facility] Address: [address] [place] [address] Performed By: #### 5 8410-2 ####[facility] LABIA [id number] [place] [address] [place] WBC (Bld) [#/Vol] 9.26 10*3/uL Normal 3.70-11.00 [facility] Comment on above: Order Comment: Speci men Type: BLOOD SPECIMENOrdering Facility: [facility] Address: [address] [place] [address] Performed By: #### 5 8410-2 ####[facility] LABIA [id number] [place] [address] [place] Magnesium SerPl-mCncon 05-07 Magnesium [Mass/Vol] 1.9 mg/dL Normal 1.7-2.3 [facility] Comment on above: Order Comment: Speci men Type: BLOOD SPECIMENOrdering Facility: [facility] Address: [address] [place] [address] Performed By: #### 2 4321-2, 16561-9, 2777-1 ####[facility] LABIA [id number] [place] [id number] [place] Phosphate SerPl-mCncon 05-07 Phosphate [Mass/Vol] 2.8 mg/dL Normal 2.7-4.8 [facility] Comment on above: Order Comment: Speci men Type: BLOOD SPECIMENOrdering Facility: [facility] Address: [address] [place] [address] Performed By: #### 2 4321-2, 88555-3, 2777-1 ####[facility] LABCLIA [id number] [facility] [place] [id number] [place] Basic metabolic 2000 panelon 05-06-2025 Anion gap [Moles/Vol] 13 mmol/L Normal 8-15 [facility] Comment on above: Order Comment: Speci men Type: BLOOD SPECIMENOrdering Facility: [facility] Address: [address] [place] [address] Performed By: #### 2 777-1, 30964-0, ####[facility] LABCLIA [id number] [place] [id number] [place] Calcium [Mass/Vol] 8.5 mg/dL Normal 8.5-10.2 [facility] Comment on above: Order Comment: Speci men Type: BLOOD SPECIMENOrdering Facility: [facility] Address: [address] [place] [address] Performed By: #### 2 777-1, 68554-0, ####[facility] LABCLIA [id number] [address], [facility]95 [place] Chloride [Moles/Vol] 102 mmol/L Normal 98-107 [facility] Comment on above: Order Comment: Speci men Type: BLOOD SPECIMENOrdering Facility: [facility] Address: [address] [place] [address] Performed By: #### 2 777-1, 56344-8, ####[facility] LABCLIA [id number] [facility] [address] [place] [address] [place] CO2 [Moles/Vol] 24 mmol/L Normal 22-30 [facility] Comment on above: Order Comment: Speci men Type: BLOOD SPECIMENOrdering Facility: [facility] Address: [address] [place] [address] Performed By: #### 2 777-1, 79655-1, ####[facility] LABCLIA [id number] [address] [address] [place] Creatinine [Mass/Vol] 0.94 mg/dL Normal 0.73-1.22 [facility] Comment on above: Order Comment: Speci men Type: BLOOD SPECIMENOrdering Facility: [facility] Address: [address] [place] [address] Performed By: #### 2 777-1, , ####[facility] LABCLIA [id number] [place] [address] [place] eGFRcr SerPlBld CKD-EPI 2020 83 mL/min/1.73m??? Normal >=60 [facility] Comment on above: Order Comment: Speci men Type: BLOOD SPECIMENOrdering Facility: [facility] Address: [address] [place] [address] Result Comment: Yesenia mated Glomerular Filtration Rate (eGFR) is calculated using the 2020 CKD-EPI creatinine equation. This equation utilizes serum creatinine, sex, and age as parameters. The creatinine assay has traceable calibration to isotope dilution-mass spectrometry. Refer to KDIGO guidelines for clinical interpretation. In patients with unstable renal function, e.g. those with acute kidney injury, the eGFR may not accurately reflect actual GFR. Performed By: #### 2 777-1, 16439-5, ####[facility] LABCLIA [id number] [address] [address] [place] Glucose [Mass/Vol] 89 mg/dL Normal 74-99 [facility] Comment on above: Order Comment: Speci men Type: BLOOD SPECIMENOrdering Facility: [facility] Address: [address] [place] [address] Result Comment: The [place] Diabetes Association (ADA) provides guidance for cutoff values for fasting glucose and random glucose. The ADA defines fasting as no caloric intake for at least 8 hours. Fasting plasma glucose results between 100 to 125 mg/dL indicate increased risk for diabetes (prediabetes).Fasting plasma glucose results greater than or equal to 126 mg/dL meet the criteria for diagnosis of diabetes. In the absence of unequivocal hyperglycemia, results should be confirmed by repeat testing. In a patient with classic symptoms of hyperglycemia or hyperglycemic crisis, random plasma glucose results greater than or equal to 200 mg/dL meet the criteria for diagnosis of diabetes.Reference: Standards of Medical Care in Diabetes 2016, [place] [employer]. Diabetes Care. 2016.39(Suppl 1). Performed By: #### 2 777-1, 92131-9, ####[facility] LABCLIA [id number] [place] [address] [place] Potassium [Moles/Vol] 4.0 mmol/L Normal 3.7-5.1 [facility] Comment on above: Order Comment: Speci men Type: BLOOD SPECIMENOrdering Facility: [facility] Address: [address] [place] [address] Performed By: #### 2 777-1, , ####[facility] LABIA [id number] [place] [id number] [place] Sodium [Moles/Vol] 139 mmol/L Normal 136-144 [facility] Comment on above: Order Comment: Speci men Type: BLOOD SPECIMENOrdering Facility: [facility] Address: [address] [place] [address] Performed By: #### 2 777-1, , ####[facility] LABCLIA [id number] [address] [address] [place] Urea nitrogen [Mass/Vol] 10 mg/dL Normal 9-24 [facility] Comment on above: Order Comment: Speci men Type: BLOOD SPECIMENOrdering Facility: [facility] Address: [address] [place] [address] Performed By: #### 2 777-1, 02238-2, 75848-7 ####[facility] LABIA [id number] [place] [address] [place] CBC panel Auto (Bld)on 05-06 Erythrocyte distribution width (RBC) [Ratio] 14.7 % Normal 11.5-15.0 [facility] Comment on above: Order Comment: Speci men Type: BLOOD SPECIMENOrdering Facility: [facility] Address: [address] [place] [address] Performed By: #### 5 8410-2 ####[facility] [id number] [place] [address] [place] Hematocrit (Bld) [Volume fraction] 31.1 % Low 39.0-51.0 [facility] Comment on above: Order Comment: Speci men Type: BLOOD SPECIMENOrdering Facility: [facility] Address: [address] [place] [address] Performed By: #### 5 8410-2 ####[facility] [id number] [place] [address] [place] Hemoglobin (Bld) [Mass/Vol] 10.3 g/dL Low 13.0-17.0 [facility] Comment on above: Order Comment: Speci men Type: BLOOD SPECIMENOrdering Facility: [facility] Address: [address] [place] [address] Performed By: #### 5 8410-2 ####[facility] LABIA [id number] [place] [id number] [place] MCH (RBC) [Entitic mass] 30.5 pg Normal 26.0-34.0 [facility] Comment on above: Order Comment: Speci men Type: BLOOD SPECIMENOrdering Facility: [facility] Address: [address] [place] [address] Performed By: #### 5 8410-2 ####[facility] LABIA [id number] [place] [address] [place] MCHC (RBC) [Mass/Vol] 33.1 g/dL Normal 30.5-36.0 [facility] Comment on above: Order Comment: Speci men Type: BLOOD SPECIMENOrdering Facility: [facility] Address: [address] [place] [address] Performed By: #### 5 8410-2 ####[facility] LABIA [id number] [place] [address] [place] MCV (RBC) [Entitic vol] 92.0 fL Normal 80.0-100.0 [facility] Comment on above: Order Comment: Speci men Type: BLOOD SPECIMENOrdering Facility: [facility] Address: [address] [place] [address] Performed By: #### 5 8410-2 ####[facility] LABIA [id number] [place] [address] [place] Nucleated RBC (Bld) [#/Vol] 10*3/uL Normal <0.01 [facility] Comment on above: Order Comment: Speci men Type: BLOOD SPECIMENOrdering Facility: [facility] Address: [address] [place] [address] Performed By: #### 5 8410-2 ####[facility] LABIA [id number] [place] [address] [place] Platelet mean volume (Bld) [Entitic vol] 9.4 fL Normal 9.0-12.7 [facility] Comment on above: Order Comment: Speci men Type: BLOOD SPECIMENOrdering Facility: [facility] Address: [address] [place] [address] Performed By: #### 5 8410-2 ####[facility] LABIA [id number] [place] [address] [place] Platelets (Bld) [#/Vol] 169 10*3/uL Normal 150-400 [facility] Comment on above: Order Comment: Speci men Type: BLOOD SPECIMENOrdering Facility: [facility] Address: [address] [place] [address] Performed By: #### 5 8410-2 ####[facility] LABCLIA [id number] [place] [address] [place] RBC (Bld) [#/Vol] 3.38 10*6/uL Low 4.20-6.00 [facility] Comment on above: Order Comment: Speci men Type: BLOOD SPECIMENOrdering Facility: [facility] Address: [address] [place] [address] Performed By: #### 5 8410-2 ####[facility] LABCLIA [id number] [place] [address] [place] WBC (Bld) [#/Vol] 9.93 10*3/uL Normal 3.70-11.00 [facility] Comment on above: Order Comment: Speci men Type: BLOOD SPECIMENOrdering Facility: [facility] Address: [address] [place] [address] Performed By: #### 5 8410-2 ####[facility] LABIA [id number] [place] [address] [place] Magnesium SerPl-mCncon 05-06 Magnesium [Mass/Vol] 2.1 mg/dL Normal 1.7-2.3 [facility] Comment on above: Order Comment: Speci men Type: BLOOD SPECIMENOrdering Facility: [facility] Address: [address] [place] [address] Performed By: #### 2 777-1, 96839-2, 82447-4 ####[facility] LABCLIA [id number] [place] [address] [place] Phosphate SerPl-mCncon 05-06 Phosphate [Mass/Vol] 2.2 mg/dL Low 2.7-4.8 [facility] Comment on above: Order Comment: Speci men Type: BLOOD SPECIMENOrdering Facility: [facility] Address: [address] [place] [address] Performed By: #### 2 777-1, 99092-7, ####[facility] LABCLIA [id number] [address] [address] [place] ANES POSTPROC EVALon 025 ANES POSTPROC EVAL Normal [facility] Basic metabolic 2000 panelon 05-05-2025 Anion gap [Moles/Vol] 11 mmol/L Normal 8-15 [facility] Comment on above: Order Comment: Speci men Type: BLOOD SPECIMENOrdering Facility: [facility] Address: [address] [place] [address] Performed By: #### 2 4321-2, , 2776-09 ####[facility] LABCLIA [id number] [place] [id number] [place] Calcium [Mass/Vol] 8.0 mg/dL Low 8.5-10.2 [facility] Comment on above: Order Comment: Speci men Type: BLOOD SPECIMENOrdering Facility: [facility] Address: [address] [place], [place] [address] Performed By: #### 2 4321-2, , 2776-09 ####[facility] LABCLIA [id number] [address] [address] [place] Chloride [Moles/Vol] 101 mmol/L Normal 98-107 [facility] Comment on above: Order Comment: Speci men Type: BLOOD SPECIMENOrdering Facility: [facility] Address: [address] [place], [place] [address] Performed By: #### 2 4321-2, , 2776-09 ####[facility] LABCLIA [id number] [place] [id number] [place] CO2 [Moles/Vol] 24 mmol/L Normal 22-30 [facility] Comment on above: Order Comment: Speci men Type: BLOOD SPECIMENOrdering Facility: [facility] Address: [address] [place] [address] Performed By: #### 2 4321-2, , 2776-09 ####[facility] LABCLIA [id number] [place] [id number] [place] Creatinine [Mass/Vol] 0.80 mg/dL Normal 0.73-1.22 [facility] Comment on above: Order Comment: Speci men Type: BLOOD SPECIMENOrdering Facility: [facility] Address: [address] [place] [address] Performed By: #### 2 4321-2, , 2776-09 ####[facility] LABIA [id number] [place] [id number] [place] eGFRcr SerPlBld CKD-EPI 2020 91 mL/min/1.73m??? Normal >=60 [facility] Comment on above: Order Comment: Speci men Type: BLOOD SPECIMENOrdering Facility: [facility] Address: [address] [place] [address] Result Comment: Yesenia mated Glomerular Filtration Rate (eGFR) is calculated using the 2020 CKD-EPI creatinine equation. This equation utilizes serum creatinine, sex, and age as parameters. The creatinine assay has traceable calibration to isotope dilution-mass spectrometry. Refer to KDIGO guidelines for clinical interpretation. In patients with unstable renal function, e.g. those with acute kidney injury, the eGFR may not accurately reflect actual GFR. Performed By: #### 2 4321-2, , 2776-09 ####[facility] LABCLIA [id number] [address] [address] [place] Glucose [Mass/Vol] 143 mg/dL High 74-99 [facility] Comment on above: Order Comment: Speci men Type: BLOOD SPECIMENOrdering Facility: [facility] Address: [address] [place], [place] [address] Result Comment: The [place] [employer] (ADA) provides guidance for cutoff values for fasting glucose and random glucose. The ADA defines fasting as no caloric intake for at least 8 hours. Fasting plasma glucose results between 100 to 125 mg/dL indicate increased risk for diabetes (prediabetes).Fasting plasma glucose results greater than or equal to 126 mg/dL meet the criteria for diagnosis of diabetes. In the absence of unequivocal hyperglycemia, results should be confirmed by repeat testing. In a patient with classic symptoms of hyperglycemia or hyperglycemic crisis, random plasma glucose results greater than or equal to 200 mg/dL meet the criteria for diagnosis of diabetes.Reference: Standards of Medical Care in Diabetes 2016, [place] [employer]. Diabetes Care. 2016.39(Suppl 1). Performed By: #### 2 4321-2, , 2776- ####[facility] LABCLIA [id number] [place] [id number] [place] Potassium [Moles/Vol] 4.1 mmol/L Normal 3.7-5.1 [facility] Comment on above: Order Comment: Laurai men Type: BLOOD SPECIMENOrdering Facility: [facility] Address: [address] [place], [place] [address] Performed By: #### 2 4321-2, , 2776-09 ####[facility] LABCLIA [id number] [place] [id number] [place] Sodium [Moles/Vol] 136 mmol/L Normal 136-144 [facility] Comment on above: Order Comment: Speci men Type: BLOOD SPECIMENOrdering Facility: [facility] Address: [address] [place], [place] [address] Performed By: #### 2 4321-2, , 2776-09 ####[facility] LABCLIA [id number] [address] [address] [place] Urea nitrogen [Mass/Vol] 13 mg/dL Normal 9-24 [facility] Comment on above: Order Comment: Speci men Type: BLOOD SPECIMENOrdering Facility: [facility] Address: [address] [place] [address] Performed By: #### 2 4321-2, , 2776-09 ####[facility] LABCLIA [id number] [address] [address] [place] Anion gap [Moles/Vol] 10 mmol/L Normal 8-15 [facility] Comment on above: Order Comment: Speci men Type: BLOOD SPECIMENOrdering Facility: [facility] Address: [address] [place] [address] Performed By: #### 2 4321-2, , 2776-09 ####[facility] LABCLIA [id number] [address] [address] [place] Calcium [Mass/Vol] 8.0 mg/dL Low 8.5-10.2 [facility] Comment on above: Order Comment: Speci men Type: BLOOD SPECIMENOrdering Facility: [facility] Address: [address] [place] [address] Performed By: #### 2 4321-2, , 2776-09 ####[facility] LABCLIA [id number] [address] [address] [place] Chloride [Moles/Vol] 103 mmol/L Normal 98-107 [facility] Comment on above: Order Comment: Speci men Type: BLOOD SPECIMENOrdering Facility: [facility] Address: [address] [place] [address] Performed By: #### 2 4321-2, , 2776-09 ####[facility] LABCLIA [id number] [address] [address] [place] CO2 [Moles/Vol] 23 mmol/L Normal 22-30 [facility] Comment on above: Order Comment: Speci men Type: BLOOD SPECIMENOrdering Facility: [facility] Address: [address] [place], [place] [address] Performed By: #### 2 4321-2, , 2776-09 ####[facility] LABIA [id number] [address] [address] [place] Creatinine [Mass/Vol] 0.87 mg/dL Normal 0.73-1.22 [facility] Comment on above: Order Comment: Speci men Type: BLOOD SPECIMENOrdering Facility: [facility] Address: [address] [place] [address] Performed By: #### 2 4321-2, , 2776-09 ####[facility] LABIA [id number] [address] [address] [place] eGFRcr SerPlBld CKD-EPI 2020 89 mL/min/1.73m??? Normal >=60 [facility] Comment on above: Order Comment: Saira men Type: BLOOD SPECIMENOrdering Facility: [facility] Address: [address] [place] [address] Result Comment: Yesenia mated Glomerular Filtration Rate (eGFR) is calculated using the 2020 CKD-EPI creatinine equation. This equation utilizes serum creatinine, sex, and age as parameters. The creatinine assay has traceable calibration to isotope dilution-mass spectrometry. Refer to KDIGO guidelines for clinical interpretation. In patients with unstable renal function, e.g. those with acute kidney injury, the eGFR may not accurately reflect actual GFR. Performed By: #### 2 4321-2, , 2776-09 ####[facility] LABIA [id number] [address] [address] [place] Glucose [Mass/Vol] 172 mg/dL High 74-99 [facility] Comment on above: Order Comment: Saira jade Type: BLOOD SPECIMENOrdering Facility: [facility] Address: [address] [place], [place] [address] Result Comment: The [place] Diabetes Association (ADA) provides guidance for cutoff values for fasting glucose and random glucose. The ADA defines fasting as no caloric intake for at least 8 hours. Fasting plasma glucose results between 100 to 125 mg/dL indicate increased risk for diabetes (prediabetes).Fasting plasma glucose results greater than or equal to 126 mg/dL meet the criteria for diagnosis of diabetes. In the absence of unequivocal hyperglycemia, results should be confirmed by repeat testing. In a patient with classic symptoms of hyperglycemia or hyperglycemic crisis, random plasma glucose results greater than or equal to 200 mg/dL meet the criteria for diagnosis of diabetes.Reference: Standards of Medical Care in Diabetes 2016, [place] [employer]. Diabetes Care. 2016.39(Suppl 1). Performed By: #### 2 4321-2, , 2776-09 ####[facility] LABIA [id number] [place] [address] [place] Potassium [Moles/Vol] 4.4 mmol/L Normal 3.7-5.1 [facility] Comment on above: Order Comment: Speci men Type: BLOOD SPECIMENOrdering Facility: [facility] Address: [address] [place] [address] Performed By: #### 2 43209-29, , 2776-09 ####[facility] [id number] [place] [address] [place] Sodium [Moles/Vol] 136 mmol/L Normal 136-144 [facility] Comment on above: Order Comment: Speci men Type: BLOOD SPECIMENOrdering Facility: [facility] Address: [address] [place] [address] Performed By: #### 2 432-2, , 2776-09 ####[facility] [id number] [address] [address] [place] Urea nitrogen [Mass/Vol] 14 mg/dL Normal 9-24 [facility] Comment on above: Order Comment: Speci men Type: BLOOD SPECIMENOrdering Facility: [facility] Address: [address] [place], [place] [address] Performed By: #### 2 432-2, , 2777-1 ####[facility] LABIA [id number] [place] [id number] [place] CASE MGT INIT ASSESon 2024 CASE MGT INIT ASSES Normal [facility] CBC panel Auto (Bld)on 05-05 Erythrocyte distribution width (RBC) [Ratio] 14.7 % Normal 11.5-15.0 [facility] Comment on above: Order Comment: Speci men Type: BLOOD SPECIMENOrdering Facility: [facility] Address: [address] [place] [address] Performed By: #### 5 8410-2 ####[facility] LABIA [id number] [place] [address] [place] Hematocrit (Bld) [Volume fraction] 32.7 % Low 39.0-51.0 [facility] Comment on above: Order Comment: Speci men Type: BLOOD SPECIMENOrdering Facility: [facility] Address: [address] [place] [address] Performed By: #### 5 8410-2 ####[facility] LABIA [id number] [place] [address] [place] Hemoglobin (Bld) [Mass/Vol] 10.5 g/dL Low 13.0-17.0 [facility] Comment on above: Order Comment: Speci men Type: BLOOD SPECIMENOrdering Facility: [facility] Address: [address] [place] [address] Performed By: #### 5 8410-2 ####[facility] LABIA [id number] [place] [id number] [place] MCH (RBC) [Entitic mass] 29.8 pg Normal 26.0-34.0 [facility] Comment on above: Order Comment: Speci men Type: BLOOD SPECIMENOrdering Facility: [facility] Address: [address] [place] [address] Performed By: #### 5 8410-2 ####[facility] LABIA [id number] [place] [address] [place] MCHC (RBC) [Mass/Vol] 32.1 g/dL Normal 30.5-36.0 [facility] Comment on above: Order Comment: Speci men Type: BLOOD SPECIMENOrdering Facility: [facility] Address: [address] [place] [address] Performed By: #### 5 8410-2 ####[facility] LABIA [id number] [place] [address] [place] MCV (RBC) [Entitic vol] 92.9 fL Normal 80.0-100.0 [facility] Comment on above: Order Comment: Speci men Type: BLOOD SPECIMENOrdering Facility: [facility] Address: [address] [place] [address] Performed By: #### 5 8410-2 ####[facility] LABIA [id number] [place] [address] [place] Nucleated RBC (Bld) [#/Vol] 10*3/uL Normal <0.01 [facility] Comment on above: Order Comment: Speci men Type: BLOOD SPECIMENOrdering Facility: [facility] Address: [address] [place] [address] Performed By: #### 5 8410-2 ####[facility] LABIA [id number] [place] [address] [place] Platelet mean volume (Bld) [Entitic vol] 9.4 fL Normal 9.0-12.7 [facility] Comment on above: Order Comment: Speci men Type: BLOOD SPECIMENOrdering Facility: [facility] Address: [address] [place] [address] Performed By: #### 5 8410-2 ####[facility] LABIA [id number] [place] [address] [place] Platelets (Bld) [#/Vol] 158 10*3/uL Normal 150-400 [facility] Comment on above: Order Comment: Speci men Type: BLOOD SPECIMENOrdering Facility: [facility] Address: [address] [place] [address] Performed By: #### 5 8410-2 ####[facility] LABCLIA [id number] [place] [address] [place] RBC (Bld) [#/Vol] 3.52 10*6/uL Low 4.20-6.00 [facility] Comment on above: Order Comment: Speci men Type: BLOOD SPECIMENOrdering Facility: [facility] Address: [address] [place] [address] Performed By: #### 5 8410-2 ####[facility] LABCLIA [id number] [place] [address] [place] WBC (Bld) [#/Vol] 16.85 10*3/uL High 3.70-11.00 [facility] Comment on above: Order Comment: Speci men Type: BLOOD SPECIMENOrdering Facility: [facility] Address: [address] [place] [address] Performed By: #### 5 8410-2 ####[facility] LABIA [id number] [place] [address] [place] Erythrocyte distribution width (RBC) [Ratio] 14.8 % Normal 11.5-15.0 [facility] Comment on above: Order Comment: Speci men Type: BLOOD SPECIMENOrdering Facility: [facility] Address: [address] [place] [address] Performed By: #### 5 8410-2 ####[facility] LABCLIA [id number] [place] [address] [place] Hematocrit (Bld) [Volume fraction] 33.1 % Low 39.0-51.0 [facility] Comment on above: Order Comment: Speci men Type: BLOOD SPECIMENOrdering Facility: [facility] Address: [address] [place] [address] Performed By: #### 5 8410-2 ####[facility] LABIA [id number] [place] [address] [place] Hemoglobin (Bld) [Mass/Vol] 11.1 g/dL Low 13.0-17.0 [facility] Comment on above: Order Comment: Speci men Type: BLOOD SPECIMENOrdering Facility: [facility] Address: [address] [place] [address] Performed By: #### 5 8410-2 ####[facility] [id number] [place] [address] [place] MCH (RBC) [Entitic mass] 30.2 pg Normal 26.0-34.0 [facility] Comment on above: Order Comment: Speci men Type: BLOOD SPECIMENOrdering Facility: [facility] Address: [address] [place] [address] Performed By: #### 5 8410-2 ####[facility] [id number] [place] [address] [place] MCHC (RBC) [Mass/Vol] 33.5 g/dL Normal 30.5-36.0 [facility] Comment on above: Order Comment: Speci men Type: BLOOD SPECIMENOrdering Facility: [facility] Address: [address] [place] [address] Performed By: #### 5 8410-2 ####[facility] [id number] [place] [address] [place] MCV (RBC) [Entitic vol] 89.9 fL Normal 80.0-100.0 [facility] Comment on above: Order Comment: Speci men Type: BLOOD SPECIMENOrdering Facility: [facility] Address: [address] [place] [address] Performed By: #### 5 8410-2 ####[facility] LABCLIA [id number] [address] [place] [address] [place] Nucleated RBC (Bld) [#/Vol] 10*3/uL Normal <0.01 [facility] Comment on above: Order Comment: Speci men Type: BLOOD SPECIMENOrdering Facility: [facility] Address: [address] [place] [address] Performed By: #### 5 8410-2 ####[facility] LABCLIA [id number] [address], [place] [address] [place] Platelet mean volume (Bld) [Entitic vol] 8.7 fL Low 9.0-12.7 [facility] Comment on above: Order Comment: Speci men Type: BLOOD SPECIMENOrdering Facility: [facility] Address: [address] [place] [address] Performed By: #### 5 8410-2 ####[facility] LABIA [id number] [address], [place] [address] [place] Platelets (Bld) [#/Vol] 153 10*3/uL Normal 150-400 [facility] Comment on above: Order Comment: Speci men Type: BLOOD SPECIMENOrdering Facility: [facility] Address: [address] [place] [address] Performed By: #### 5 8410-2 ####[facility] LABIA [id number] [address], [place] [address] [place] RBC (Bld) [#/Vol] 3.68 10*6/uL Low 4.20-6.00 [facility] Comment on above: Order Comment: Speci men Type: BLOOD SPECIMENOrdering Facility: [facility] Address: [address] [place] [address] Performed By: #### 5 8410-2 ####[facility] LABCLIA [id number] [address], [facility] [place] WBC (Bld) [#/Vol] 14.53 10*3/uL High 3.70-11.00 [facility] Comment on above: Order Comment: Speci men Type: BLOOD SPECIMENOrdering Facility: [facility] Address: [address] [place] [address] Performed By: #### 5 8410-2 ####[facility] LABCLIA [id number] [place] [address] [place] HCV RNA JENNY+probe Qnon 05-05 HBV surface Ag Ql (S) Negative Normal Negative [facility] Comment on above: Order Comment: Speci men Type: BLOOD SPECIMENOrdering Facility: [facility] Address: [place] [address] Performed By: #### 1 1011-4 ####[facility] LABIA [id number] [place] [address] [place] HCV Ab Ql (S) Negative Normal Negative [facility] Comment on above: Order Comment: Speci men Type: BLOOD SPECIMENOrdering Facility: [facility] Address: [place] [address] Result Comment: The result suggests no evidence of infection with Hepatitis C virus. Should recent infection be suspected, repeat testing may be considered 4-6 weeks after this draw. Performed By: #### 1 1011-4 ####[facility] LABCLIA [id number] [place] [address] [place] HIV 1 and 2 Ab IA.rapid Nom (S/P/Bld) Normal [facility] Comment on above: Order Comment: Speci men Type: BLOOD SPECIMENOrdering Facility: [facility] Address: [place] [address] Result Comment: Test not indicated. Performed By: #### 1 1011-4 ####[facility] LABCLIA [id number] [place] [address] [place] HIV 1+2 Ab+HIV1 p24 Ag IA Ql Non-Reactive Normal Nonreactive [facility] Comment on above: Order Comment: Speci men Type: BLOOD SPECIMENOrdering Facility: [facility] Address: [place] [address] Performed By: #### 1 1011-4 ####[facility] LABCLIA [id number] [address] [place] HIV immunoassay testing algorithm interpretation (S/P/Bld) [Interp] Normal [facility] Comment on above: Order Comment: Speci men Type: BLOOD SPECIMENOrdering Facility: [facility]ational [facility] Exposure Address: [place] [address] Result Comment: No e vidence of HIV-1 or HIV-2 infection. Should recent infection be suspected, repeat testing may be considered 2-3 weeks after this draw.[place] Rev. Code 3701.243(E): This information has been disclosed to you from confidential records protected from disclosure by state law. You shall make no further disclosure of this information without the specific, written, and informed release of the individual to whom it pertains or as otherwise permitted by state law. A general authorization for the release of medical or other information is not sufficient for the purpose of the release of HIV test results or diagnoses. Performed By: #### 1 1011-4 ####[facility] LABCLIA [id number] [place] [address] [place] HIV1+2 Ab Ser Qlon 5 HIV 1+2 Ab Ql (S) Negative Normal Non-Reacti ve : Negative for both HIV1 and HIV2 antibodies. [facility] Comment on above: Order Comment: Speci men Type: BLOOD SPECIMENOrdering Facility: [facility]ational [facility] Exposure Address: [place] [address] Result Comment: A no n-reactive result does not preclude the possibility of exposure to HIV or infection with HIV. An antibody response to recent exposure may take several weeks to reach detectable levels with this assay.Performed by the [employer] [facility] Rapid HIV-1/2 Antibody Test.HIV Information: [place] Rev. Code 3701.243(E):This information has been disclosed to you from confidential records protected from disclosure by state law. You shall make no further disclosure of this information without the specific, written, and informed release of the individual to whom it pertains, or as otherwise permitted by state law. A general authorization for the release of medical or other information is not sufficient for the purpose of the release of HIV test results or diagnoses. Performed By: #### 7 918-6 ####[facility] LABCLIA [id number] [place] [id number] [place] Magnesium SerPl-mCncon 05-05 Magnesium [Mass/Vol] 2.2 mg/dL Normal 1.7-2.3 [facility] Comment on above: Order Comment: Speci men Type: BLOOD SPECIMENOrdering Facility: [facility] Address: [address] [place] [address] Performed By: #### 2 4321-2, , 2776-09 ####[facility] LABCLIA [id number] [address] [place] Magnesium [Mass/Vol] 1.5 mg/dL Low 1.7-2.3 [facility] Comment on above: Order Comment: Speci men Type: BLOOD SPECIMENOrdering Facility: [facility] Address: [address] [place] [address] Performed By: #### 2 4321-2, , 2776-09 ####[facility] LABCLIA [id number] [place] [id number] [place] NURSING PROGon 05-05-2025 NURSING PROG Normal [facility] NURSING PROG Normal [facility] Phosphate SerPl-mCncon 05-05 Phosphate [Mass/Vol] 1.9 mg/dL Low 2.7-4.8 [facility] Comment on above: Order Comment: Speci men Type: BLOOD SPECIMENOrdering Facility: [facility] Address: [address] [place], [place] [address] Performed By: #### 2 4321-2, , 2776-09 ####[facility] LABIA [id number] [place] [id number] [place] Phosphate [Mass/Vol] 2.5 mg/dL Low 2.7-4.8 [facility] Comment on above: Order Comment: Speci men Type: BLOOD SPECIMENOrdering Facility: [facility] Address: [address] [place] [address] Performed By: #### 2 4321-2, 23417-4, 2777-1 ####[facility] LABIA [id number] [place] [address] [place] ANES PRE-OPon 05-04-2025 ANES PRE-OP Normal [facility] ARTERIAL BLOOD GASESon 05-04 Base deficit (BldA) [Moles/Vol] -2 mmol/L Normal -2-0 [facility] Comment on above: Order Comment: Speci men Type: ARTERIAL BLOOD SPECIMENOrdering Facility: [facility] Address: [address] [place] [address] Performed By: #### A LLBG ####[facility] [id number] [place] [address] [place] Calcium.ionized (Bld) [Mass/Vol] 1.10 mmol/L Normal 1.08-1.30 [facility] Comment on above: Order Comment: Speci men Type: ARTERIAL BLOOD SPECIMENOrdering Facility: [facility] Address: [address] [place] [address] Performed By: #### A LLBG ####[facility] LABIA [id number] [place] [address] [place] Calcium.ionized adjusted to pH 7.4 (BldA) [Moles/Vol] 1.09 mmol/L Normal 1.08-1.30 [facility] Comment on above: Order Comment: Speci men Type: ARTERIAL BLOOD SPECIMENOrdering Facility: [facility] Address: [address] [place] [address] Performed By: #### A LLBG ####[facility] LABCLIA [id number] [place] [address] [place] Carboxyhemoglobin (BldA) [Mass fraction] 1.5 % Normal 0.0-2.0 [facility] Comment on above: Order Comment: Speci men Type: ARTERIAL BLOOD SPECIMENOrdering Facility: [facility] Address: [address] [place] [address] Result Comment: Carb oxyhemoglobin Reference Range for Smokers: 2.0-8.0% Performed By: #### A LLBG ####[facility] LABIA [id number] [address] [place] CO2 (Bld) [Partial pressure] 38 mm Hg Normal 36-46 [facility] Comment on above: Order Comment: Speci men Type: ARTERIAL BLOOD SPECIMENOrdering Facility: [facility] Address: [address] [place] [address] Performed By: #### A LLBG ####[facility] LABCLIA [id number] [address] [place] CO2 adjusted to patient's actual temperature (Bld) [Partial pressure] 38 mmHg Normal 36-46 [facility] Comment on above: Order Comment: Speci men Type: ARTERIAL BLOOD SPECIMENOrdering Facility: [facility] Address: [address] [place] [address] Performed By: #### A LLBG ####[facility] LABCLIA [id number] [place] [id number] [place] Glucose [Mass/Vol] 193 mg/dL High 60-105 [facility] Comment on above: Order Comment: Speci men Type: ARTERIAL BLOOD SPECIMENOrdering Facility: [facility] Address: [address] [place] [address] Performed By: #### A LLBG ####[facility] LABIA [id number] [place] [id number] [place] HCO3 (Bld) [Moles/Vol] 22 mmol/L Normal 22-26 [facility] Comment on above: Order Comment: Speci men Type: ARTERIAL BLOOD SPECIMENOrdering Facility: [facility] Address: [address] [place] [address] Performed By: #### A LLBG ####[facility] LABCLIA [id number] [place] [address] [place] Hematocrit (Bld) [Volume fraction] 34.5 % Low 39.0-51.0 [facility] Comment on above: Order Comment: Speci men Type: ARTERIAL BLOOD SPECIMENOrdering Facility: [facility] Address: [address] [place] [address] Performed By: #### A LLBG ####[facility] LABCLIA [id number] [place] [address] [place] Hemoglobin (Bld) [Mass/Vol] 11.2 g/dL Low 13.0-17.0 [facility] Comment on above: Order Comment: Speci men Type: ARTERIAL BLOOD SPECIMENOrdering Facility: [facility] Address: [address] [place] [address] Performed By: #### A LLBG ####[facility] LABCLIA [id number] [place] [address] [place] Lactate [Moles/Vol] 3.7 mmol/L High 0.5-2.2 [facility] Comment on above: Order Comment: Speci men Type: ARTERIAL BLOOD SPECIMENOrdering Facility: [facility] Address: [address] [place] [address] Performed By: #### A LLBG ####[facility] LABCLIA [id number] [place] [address] [place] Methemoglobin (Bld) [Mass fraction] 0.7 % Normal 0.0-1.5 [facility] Comment on above: Order Comment: Speci men Type: ARTERIAL BLOOD SPECIMENOrdering Facility: [facility] Address: [address] [place] [address] Performed By: #### A LLBG ####[facility] LABCLIA [id number] [address] [address] [place] Oxygen (Bld) [Partial pressure] 180 mm Hg High 85-95 [facility] Comment on above: Order Comment: Speci men Type: ARTERIAL BLOOD SPECIMENOrdering Facility: [facility] Address: [address] [place] [address] Performed By: #### A LLBG ####[facility] LABCLIA [id number] [place] [id number] [place] Oxygen adjusted to patient's actual temperature (Bld) [Partial pressure] 180 mmHg High 85-95 [facility] Comment on above: Order Comment: Speci men Type: ARTERIAL BLOOD SPECIMENOrdering Facility: [facility] Address: [address] [place] [address] Performed By: #### A LLBG ####[facility] LABCLIA [id number] [place] [id number] [place] Oxyhemoglobin (BldA) [Mass fraction] 97 % Normal 95-98 [facility] Comment on above: Order Comment: Speci men Type: ARTERIAL BLOOD SPECIMENOrdering Facility: [facility] Address: [address] [place] [address] Performed By: #### A LLBG ####[facility] LABCLIA [id number] [address] [address] [place] pH (Bld) 7.38 [pH] Normal 7.35-7.45 [facility] Comment on above: Order Comment: Speci men Type: ARTERIAL BLOOD SPECIMENOrdering Facility: [facility] Address: [address] [place] [address] Performed By: #### A LLBG ####[facility] LABCLIA [id number] [address] [address] [place] pH adjusted to patient's actual temperature (Bld) 7.38 Normal 7.35-7.45 [facility] Comment on above: Order Comment: Speci men Type: ARTERIAL BLOOD SPECIMENOrdering Facility: [facility] Address: [address] [place] [address] Performed By: #### A LLBG ####[facility] LABCLIA [id number] [place] [address] [place] Potassium [Moles/Vol] 4.3 mmol/L Normal 3.5-5.0 [facility] Comment on above: Order Comment: Speci men Type: ARTERIAL BLOOD SPECIMENOrdering Facility: [facility] Address: [address] [place] [address] Performed By: #### A LLBG ####[facility] LABCLIA [id number] [place] [address] [place] Sodium [Moles/Vol] 135 mmol/L Low 136-144 [facility] Comment on above: Order Comment: Speci men Type: ARTERIAL BLOOD SPECIMENOrdering Facility: [facility] Address: [address] [place] [address] Performed By: #### A LLBG ####[facility] LABCLIA [id number] [place] [address] [place] ARTERIAL BLOOD GASES WITH IO NIZED MAGNESIUMon 05-04-2025 Base deficit (BldA) [Moles/Vol] -3 mmol/L Low -2-0 [facility] Comment on above: Order Comment: Speci men Type: ARTERIAL BLOOD SPECIMENOrdering Facility: [facility] Address: [address] [place] [address] Performed By: #### A LLMG ####[facility] LABCLIA [id number] [place] [address] [place] Calcium.ionized (Bld) [Mass/Vol] 1.11 mmol/L Normal 1.08-1.30 [facility] Comment on above: Order Comment: Speci men Type: ARTERIAL BLOOD SPECIMENOrdering Facility: [facility] Address: [address] [place] [address] Performed By: #### A LLMG ####[facility] LABCLIA [id number] [place] [address] [place] Calcium.ionized adjusted to pH 7.4 (BldA) [Moles/Vol] 1.08 mmol/L Normal 1.08-1.30 [facility] Comment on above: Order Comment: Speci men Type: ARTERIAL BLOOD SPECIMENOrdering Facility: [facility] Address: [address] [place] [address] Performed By: #### A LLMG ####[facility] LABIA [id number] [place] [address] [place] Carboxyhemoglobin (BldA) [Mass fraction] 1.8 % Normal 0.0-2.0 [facility] Comment on above: Order Comment: Speci men Type: ARTERIAL BLOOD SPECIMENOrdering Facility: [facility] Address: [address] [place] [address] Result Comment: Carb oxyhemoglobin Reference Range for Smokers: 2.0-8.0% Performed By: #### A LLMG ####[facility] LABIA [id number] [place] [address] [place] CO2 (Bld) [Partial pressure] 41 mm Hg Normal 36-46 [facility] Comment on above: Order Comment: Speci men Type: ARTERIAL BLOOD SPECIMENOrdering Facility: [facility] Address: [address] [place] [address] Performed By: #### A LLMG ####[facility] LABCLIA [id number] [place] [address] [place] CO2 adjusted to patient's actual temperature (Bld) [Partial pressure] 41 mmHg Normal 36-46 [facility] Comment on above: Order Comment: Speci men Type: ARTERIAL BLOOD SPECIMENOrdering Facility: [facility] Address: [address] [place] [address] Performed By: #### A LLMG ####[facility] LABCLIA [id number] [place] [address] [place] Glucose [Mass/Vol] 212 mg/dL High 60-105 [facility] Comment on above: Order Comment: Speci men Type: ARTERIAL BLOOD SPECIMENOrdering Facility: [facility] Address: [address] [place] [address] Performed By: #### A LLMG ####[facility] LABCLIA [id number] [place] [id number] [place] HCO3 (Bld) [Moles/Vol] 22 mmol/L Normal 22-26 [facility] Comment on above: Order Comment: Speci men Type: ARTERIAL BLOOD SPECIMENOrdering Facility: [facility] Address: [address] [place] [address] Performed By: #### A LLMG ####[facility] LABIA [id number] [place] [id number] [place] Hematocrit (Bld) [Volume fraction] 37.8 % Low 39.0-51.0 [facility] Comment on above: Order Comment: Speci men Type: ARTERIAL BLOOD SPECIMENOrdering Facility: [facility] Address: [address] [place] [address] Performed By: #### A LLMG ####[facility] LABCLIA [id number] [place] [id number] [place] Hemoglobin (Bld) [Mass/Vol] 12.3 g/dL Low 13.0-17.0 [facility] Comment on above: Order Comment: Speci men Type: ARTERIAL BLOOD SPECIMENOrdering Facility: [facility] Address: [address] [place] [address] Performed By: #### A LLMG ####[facility] LABCLIA [id number] [place] [id number] [place] Lactate [Moles/Vol] 3.6 mmol/L High 0.5-2.2 [facility] Comment on above: Order Comment: Speci men Type: ARTERIAL BLOOD SPECIMENOrdering Facility: [facility] Address: [address] [place] [address] Performed By: #### A LLMG ####[facility] LABCLIA [id number] [place] [address] [place] Magnesium [Moles/Vol] 0.45 mmol/L Normal 0.45-0.60 [facility] Comment on above: Order Comment: Speci men Type: ARTERIAL BLOOD SPECIMENOrdering Facility: [facility] Address: [address] [place] [address] Performed By: #### A LLMG ####[facility] LABIA [id number] [place] [id number] [place] Methemoglobin (Bld) [Mass fraction] 1.0 % Normal 0.0-1.5 [facility] Comment on above: Order Comment: Speci men Type: ARTERIAL BLOOD SPECIMENOrdering Facility: [facility] Address: [address] [place] [address] Performed By: #### A LLMG ####[facility] LABCLIA [id number] [address] [address] [place] Oxygen (Bld) [Partial pressure] 158 mm Hg High 85-95 [facility] Comment on above: Order Comment: Speci men Type: ARTERIAL BLOOD SPECIMENOrdering Facility: [facility] Address: [address] [place], [place] [address] Performed By: #### A LLMG ####[facility] LABCLIA [id number] [place] [id number] [place] Oxygen adjusted to patient's actual temperature (Bld) [Partial pressure] 158 mmHg High 85-95 [facility] Comment on above: Order Comment: Speci men Type: ARTERIAL BLOOD SPECIMENOrdering Facility: [facility] Address: [address] [place] [address] Performed By: #### A LLMG ####[facility] LABCLIA [id number] [place] [address] [place] Oxyhemoglobin (BldA) [Mass fraction] 97 % Normal 95-98 [facility] Comment on above: Order Comment: Speci men Type: ARTERIAL BLOOD SPECIMENOrdering Facility: [facility] Address: [address] [place] [address] Performed By: #### A LLMG ####[facility] LABIA [id number] [place] [address] [place] pH (Bld) 7.35 [pH] Normal 7.35-7.45 [facility] Comment on above: Order Comment: Speci men Type: ARTERIAL BLOOD SPECIMENOrdering Facility: [facility] Address: [address] [place] [address] Performed By: #### A LLMG ####[facility] LABIA [id number] [place] [address] [place] pH adjusted to patient's actual temperature (Bld) 7.35 Normal 7.35-7.45 [facility] Comment on above: Order Comment: Speci men Type: ARTERIAL BLOOD SPECIMENOrdering Facility: [facility] Address: [address] [place] [address] Performed By: #### A LLMG ####[facility] LABIA [id number] [place] [id number] [place] Potassium [Moles/Vol] 4.3 mmol/L Normal 3.5-5.0 [facility] Comment on above: Order Comment: Speci men Type: ARTERIAL BLOOD SPECIMENOrdering Facility: [facility] Address: [address] [place] [address] Performed By: #### A LLMG ####[facility] LABCLIA [id number] [place] [id number] [place] Sodium [Moles/Vol] 134 mmol/L Low 136-144 [facility] Comment on above: Order Comment: Speci men Type: ARTERIAL BLOOD SPECIMENOrdering Facility: [facility] Address: [address] [place] [address] Performed By: #### A LLMG ####[facility] LABIA [id number] [place] [address] [place] Base deficit (BldA) [Moles/Vol] -2 mmol/L Normal -2-0 [facility] Comment on above: Order Comment: Speci men Type: ARTERIAL BLOOD SPECIMENOrdering Facility: [facility] Address: [address] [place] [address] Performed By: #### A LLMG ####[facility] LABIA [id number] [place] [address] [place] Calcium.ionized (Bld) [Mass/Vol] 1.11 mmol/L Normal 1.08-1.30 [facility] Comment on above: Order Comment: Speci men Type: ARTERIAL BLOOD SPECIMENOrdering Facility: [facility] Address: [address] [place] [address] Performed By: #### A LLMG ####[facility] [id number] [place] [address] [place] Calcium.ionized adjusted to pH 7.4 (BldA) [Moles/Vol] 1.07 mmol/L Low 1.08-1.30 [facility] Comment on above: Order Comment: Speci men Type: ARTERIAL BLOOD SPECIMENOrdering Facility: [facility] Address: [address] [place] [address] Performed By: #### A LLMG ####[facility] LABIA [id number] [place] [address] [place] Carboxyhemoglobin (BldA) [Mass fraction] 1.9 % Normal 0.0-2.0 [facility] Comment on above: Order Comment: Speci men Type: ARTERIAL BLOOD SPECIMENOrdering Facility: [facility] Address: [address] [place] [address] Result Comment: Carb oxyhemoglobin Reference Range for Smokers: 2.0-8.0% Performed By: #### A LLMG ####[facility] LABCLIA [id number] [place] [id number] [place] CO2 (Bld) [Partial pressure] 46 mm Hg Normal 36-46 [facility] Comment on above: Order Comment: Speci men Type: ARTERIAL BLOOD SPECIMENOrdering Facility: [facility] Address: [address] [place] [address] Performed By: #### A LLMG ####[facility] LABCLIA [id number] [place] [address] [place] CO2 adjusted to patient's actual temperature (Bld) [Partial pressure] 46 mmHg Normal 36-46 [facility] Comment on above: Order Comment: Speci men Type: ARTERIAL BLOOD SPECIMENOrdering Facility: [facility] Address: [address] [place] [address] Performed By: #### A LLMG ####[facility] LABCLIA [id number] [place] [address] [place] Glucose [Mass/Vol] 203 mg/dL High 60-105 [facility] Comment on above: Order Comment: Speci men Type: ARTERIAL BLOOD SPECIMENOrdering Facility: [facility] Address: [address] [place] [address] Performed By: #### A LLMG ####[facility] LABCLIA [id number] [place] [id number] [place] HCO3 (Bld) [Moles/Vol] 23 mmol/L Normal 22-26 [facility] Comment on above: Order Comment: Speci men Type: ARTERIAL BLOOD SPECIMENOrdering Facility: [facility] Address: [address] [place] [address] Performed By: #### A LLMG ####[facility] LABCLIA [id number] [place] [address] [place] Hematocrit (Bld) [Volume fraction] 38.3 % Low 39.0-51.0 [facility] Comment on above: Order Comment: Speci men Type: ARTERIAL BLOOD SPECIMENOrdering Facility: [facility] Address: [address] [place] [address] Performed By: #### A LLMG ####[facility] LABIA [id number] [place] [address] [place] Hemoglobin (Bld) [Mass/Vol] 12.4 g/dL Low 13.0-17.0 [facility] Comment on above: Order Comment: Speci men Type: ARTERIAL BLOOD SPECIMENOrdering Facility: [facility] Address: [address] [place] [address] Performed By: #### A LLMG ####[facility] LABIA [id number] [place] [address] [place] Lactate [Moles/Vol] 2.7 mmol/L High 0.5-2.2 [facility] Comment on above: Order Comment: Speci men Type: ARTERIAL BLOOD SPECIMENOrdering Facility: [facility] Address: [address] [place] [address] Performed By: #### A LLMG ####[facility] LABIA [id number] [place] [address] [place] Magnesium [Moles/Vol] 0.40 mmol/L Low 0.45-0.60 [facility] Comment on above: Order Comment: Speci men Type: ARTERIAL BLOOD SPECIMENOrdering Facility: [facility] Address: [address] [place] [address] Performed By: #### A LLMG ####[facility] LABIA [id number] [place] [address] [place] Methemoglobin (Bld) [Mass fraction] 1.8 % High 0.0-1.5 [facility] Comment on above: Order Comment: Speci men Type: ARTERIAL BLOOD SPECIMENOrdering Facility: [facility] Address: [address] [place] [address] Performed By: #### A LLMG ####[facility] LABCLIA [id number] [address] [address] [place] Oxygen (Bld) [Partial pressure] 172 mm Hg High 85-95 [facility] Comment on above: Order Comment: Speci men Type: ARTERIAL BLOOD SPECIMENOrdering Facility: [facility] Address: [address] [place] [address] Performed By: #### A LLMG ####[facility] LABCLIA [id number] [address] [address] [place] Oxygen adjusted to patient's actual temperature (Bld) [Partial pressure] 172 mmHg High 85-95 [facility] Comment on above: Order Comment: Speci men Type: ARTERIAL BLOOD SPECIMENOrdering Facility: [facility] Address: [address] [place] [address] Performed By: #### A LLMG ####[facility] LABCLIA [id number] [place] [id number] [place] Oxyhemoglobin (BldA) [Mass fraction] 96 % Normal 95-98 [facility] Comment on above: Order Comment: Speci men Type: ARTERIAL BLOOD SPECIMENOrdering Facility: [facility] Address: [address] [place] [address] Performed By: #### A LLMG ####[facility] LABCLIA [id number] [place] [id number] [place] pH (Bld) 7.33 [pH] Low 7.35-7.45 [facility] Comment on above: Order Comment: Speci men Type: ARTERIAL BLOOD SPECIMENOrdering Facility: [facility] Address: [address] [place] [address] Performed By: #### A LLMG ####[facility] LABCLIA [id number] [place] [address] [place] pH adjusted to patient's actual temperature (Bld) 7.33 Low 7.35-7.45 [facility] Comment on above: Order Comment: Speci men Type: ARTERIAL BLOOD SPECIMENOrdering Facility: [facility] Address: [address] [place] [address] Performed By: #### A LLMG ####[facility] LABIA [id number] [place] [address] [place] Potassium [Moles/Vol] 4.2 mmol/L Normal 3.5-5.0 [facility] Comment on above: Order Comment: Speci men Type: ARTERIAL BLOOD SPECIMENOrdering Facility: [facility] Address: [address] [place] [address] Performed By: #### A LLMG ####[facility] LABIA [id number] [place] [address] [place] Sodium [Moles/Vol] 136 mmol/L Normal 136-144 [facility] Comment on above: Order Comment: Speci men Type: ARTERIAL BLOOD SPECIMENOrdering Facility: [facility] Address: [address] [place] [address] Performed By: #### A LLMG ####[facility] LABIA [id number] [place] [address] [place] Base deficit (BldA) [Moles/Vol] mmol/L Normal -2-0 [facility] Comment on above: Order Comment: Speci men Type: ARTERIAL BLOOD SPECIMENOrdering Facility: [facility] Address: [address] [place] [address] Performed By: #### A LLMG ####[facility] LABIA [id number] [place] [id number] [place] Calcium.ionized (Bld) [Mass/Vol] 1.12 mmol/L Normal 1.08-1.30 [facility] Comment on above: Order Comment: Speci men Type: ARTERIAL BLOOD SPECIMENOrdering Facility: [facility] Address: [address] [place] [address] Performed By: #### A LLMG ####[facility] LABCLIA [id number] [place] [address] [place] Calcium.ionized adjusted to pH 7.4 (BldA) [Moles/Vol] 1.11 mmol/L Normal 1.08-1.30 [facility] Comment on above: Order Comment: Speci men Type: ARTERIAL BLOOD SPECIMENOrdering Facility: [facility] Address: [address] [place] [address] Performed By: #### A LLMG ####[facility] LABCLIA [id number] [place] [address] [place] Carboxyhemoglobin (BldA) [Mass fraction] 1.9 % Normal 0.0-2.0 [facility] Comment on above: Order Comment: Speci men Type: ARTERIAL BLOOD SPECIMENOrdering Facility: [facility] Address: [address] [place] [address] Result Comment: Carb oxyhemoglobin Reference Range for Smokers: 2.0-8.0% Performed By: #### A LLMG ####[facility] LABCLIA [id number] [place] [address] [place] CO2 (Bld) [Partial pressure] 40 mm Hg Normal 36-46 [facility] Comment on above: Order Comment: Speci men Type: ARTERIAL BLOOD SPECIMENOrdering Facility: [facility] Address: [address] [place] [address] Performed By: #### A LLMG ####[facility] LABCLIA [id number] [place] [address] [place] CO2 adjusted to patient's actual temperature (Bld) [Partial pressure] 40 mmHg Normal 36-46 [facility] Comment on above: Order Comment: Speci men Type: ARTERIAL BLOOD SPECIMENOrdering Facility: [facility] Address: [address] [place] [address] Performed By: #### A LLMG ####[facility] LABCLIA [id number] [place] [id number] [place] Glucose [Mass/Vol] 177 mg/dL High 60-105 [facility] Comment on above: Order Comment: Speci men Type: ARTERIAL BLOOD SPECIMENOrdering Facility: [facility] Address: [address] [place] [address] Performed By: #### A LLMG ####[facility] LABCLIA [id number] [place] [id number] [place] HCO3 (Bld) [Moles/Vol] 24 mmol/L Normal 22-26 [facility] Comment on above: Order Comment: Speci men Type: ARTERIAL BLOOD SPECIMENOrdering Facility: [facility] Address: [address] [place] [address] Performed By: #### A LLMG ####[facility] LABCLIA [id number] [place] [address] [place] Hematocrit (Bld) [Volume fraction] 40.7 % Normal 39.0-51.0 [facility] Comment on above: Order Comment: Speci men Type: ARTERIAL BLOOD SPECIMENOrdering Facility: [facility] Address: [address] [place] [address] Performed By: #### A LLMG ####[facility] LABCLIA [id number] [address] [address] [place] Hemoglobin (Bld) [Mass/Vol] 13.3 g/dL Normal 13.0-17.0 [facility] Comment on above: Order Comment: Speci men Type: ARTERIAL BLOOD SPECIMENOrdering Facility: [facility] Address: [address] [place] [address] Performed By: #### A LLMG ####[facility] LABCLIA [id number] [place] [id number] [place] Lactate [Moles/Vol] 2.1 mmol/L Normal 0.5-2.2 [facility] Comment on above: Order Comment: Speci men Type: ARTERIAL BLOOD SPECIMENOrdering Facility: [facility] Address: [address] [place] [address] Performed By: #### A LLMG ####[facility] LABCLIA [id number] [place] [address] [place] Magnesium [Moles/Vol] 0.49 mmol/L Normal 0.45-0.60 [facility] Comment on above: Order Comment: Speci men Type: ARTERIAL BLOOD SPECIMENOrdering Facility: [facility] Address: [address] [place] [address] Performed By: #### A LLMG ####[facility] LABCLIA [id number] [place] [address] [place] Methemoglobin (Bld) [Mass fraction] <0.0 Low 0.0-1.5 [facility] Comment on above: Order Comment: Speci men Type: ARTERIAL BLOOD SPECIMENOrdering Facility: [facility] Address: [address] [place] [address] Performed By: #### A LLMG ####[facility] LABCLIA [id number] [place] [id number] [place] Oxygen (Bld) [Partial pressure] 181 mm Hg High 85-95 [facility] Comment on above: Order Comment: Speci men Type: ARTERIAL BLOOD SPECIMENOrdering Facility: [facility] Address: [address] [place] [address] Performed By: #### A LLMG ####[facility] LABCLIA [id number] [place] [id number] [place] Oxygen adjusted to patient's actual temperature (Bld) [Partial pressure] 181 mmHg High 85-95 [facility] Comment on above: Order Comment: Speci men Type: ARTERIAL BLOOD SPECIMENOrdering Facility: [facility] Address: [address] [place] [address] Performed By: #### A LLMG ####[facility] LABCLIA [id number] [address] [address] [place] Oxyhemoglobin (BldA) [Mass fraction] 99 % High 95-98 [facility] Comment on above: Order Comment: Speci men Type: ARTERIAL BLOOD SPECIMENOrdering Facility: [facility] Address: [address] [place] [address] Performed By: #### A LLMG ####[facility] LABIA [id number] [place] [id number] [place] pH (Bld) 7.40 [pH] Normal 7.35-7.45 [facility] Comment on above: Order Comment: Speci men Type: ARTERIAL BLOOD SPECIMENOrdering Facility: [facility] Address: [address] [place] [address] Performed By: #### A LLMG ####[facility] LABCLIA [id number] [place] [id number] [place] pH adjusted to patient's actual temperature (Bld) 7.40 Normal 7.35-7.45 [facility] Comment on above: Order Comment: Speci men Type: ARTERIAL BLOOD SPECIMENOrdering Facility: [facility] Address: [address] [place] [address] Performed By: #### A LLMG ####[facility] LABCLIA [id number] [address] [address] [place] Potassium [Moles/Vol] 3.9 mmol/L Normal 3.5-5.0 [facility] Comment on above: Order Comment: Speci men Type: ARTERIAL BLOOD SPECIMENOrdering Facility: [facility] Address: [address] [place], [place] [address] Performed By: #### A LLMG ####[facility] LABCLIA [id number] [place] [address] [place] Sodium [Moles/Vol] 134 mmol/L Low 136-144 [facility] Comment on above: Order Comment: Speci men Type: ARTERIAL BLOOD SPECIMENOrdering Facility: [facility] Address: [address] [place] [address] Performed By: #### A LLMG ####[facility] LABIA [id number] [place] [address] [place] Base deficit (BldA) [Moles/Vol] -6 mmol/L Low -2-0 [facility] Comment on above: Order Comment: Speci men Type: ARTERIAL BLOOD SPECIMENOrdering Facility: [facility] Address: [address] [place] [address] Performed By: #### A LLMG ####[facility] LABIA [id number] [place] [address] [place] Calcium.ionized (Bld) [Mass/Vol] 0.89 mmol/L Low 1.08-1.30 [facility] Comment on above: Order Comment: Speci men Type: ARTERIAL BLOOD SPECIMENOrdering Facility: [facility] Address: [address] [place] [address] Performed By: #### A LLMG ####[facility] LABIA [id number] [place] [address] [place] Calcium.ionized adjusted to pH 7.4 (BldA) [Moles/Vol] 0.89 mmol/L Low 1.08-1.30 [facility] Comment on above: Order Comment: Speci men Type: ARTERIAL BLOOD SPECIMENOrdering Facility: [facility] Address: [address] [place] [address] Performed By: #### A LLMG ####[facility] LABIA [id number] [place] [address] [place] Carboxyhemoglobin (BldA) [Mass fraction] 2.1 % High 0.0-2.0 [facility] Comment on above: Order Comment: Speci men Type: ARTERIAL BLOOD SPECIMENOrdering Facility: [facility] Address: [address] [place] [address] Result Comment: Carb oxyhemoglobin Reference Range for Smokers: 2.0-8.0% Performed By: #### A LLMG ####[facility] LABCLIA [id number] [place] [address] [place] CO2 (Bld) [Partial pressure] 30 mm Hg Low 36-46 [facility] Comment on above: Order Comment: Speci men Type: ARTERIAL BLOOD SPECIMENOrdering Facility: [facility] Address: [address] [place] [address] Performed By: #### A LLMG ####[facility] LABCLIA [id number] [place] [address] [place] CO2 adjusted to patient's actual temperature (Bld) [Partial pressure] 30 mmHg Low 36-46 [facility] Comment on above: Order Comment: Speci men Type: ARTERIAL BLOOD SPECIMENOrdering Facility: [facility] Address: [address] [place] [address] Performed By: #### A LLMG ####[facility] LABCLIA [id number] [place] [id number] [place] Glucose [Mass/Vol] 134 mg/dL High 60-105 [facility] Comment on above: Order Comment: Speci men Type: ARTERIAL BLOOD SPECIMENOrdering Facility: [facility] Address: [address] [place] [address] Performed By: #### A LLMG ####[facility] LABCLIA [id number] [place] [id number] [place] HCO3 (Bld) [Moles/Vol] 18 mmol/L Low 22-26 [facility] Comment on above: Order Comment: Speci men Type: ARTERIAL BLOOD SPECIMENOrdering Facility: [facility] Address: [address] [place] [address] Performed By: #### A LLMG ####[facility] LABCLIA [id number] [place] [address] [place] Hematocrit (Bld) [Volume fraction] 32.9 % Low 39.0-51.0 [facility] Comment on above: Order Comment: Speci men Type: ARTERIAL BLOOD SPECIMENOrdering Facility: [facility] Address: [address] [place] [address] Performed By: #### A LLMG ####[facility] LABIA [id number] [place] [address] [place] Hemoglobin (Bld) [Mass/Vol] 10.7 g/dL Low 13.0-17.0 [facility] Comment on above: Order Comment: Speci men Type: ARTERIAL BLOOD SPECIMENOrdering Facility: [facility] Address: [address] [place] [address] Performed By: #### A LLMG ####[facility] LABIA [id number] [place] [address] [place] Lactate [Moles/Vol] 1.4 mmol/L Normal 0.5-2.2 [facility] Comment on above: Order Comment: Speci men Type: ARTERIAL BLOOD SPECIMENOrdering Facility: [facility] Address: [address] [place] [address] Performed By: #### A LLMG ####[facility] LABCLIA [id number] [place] [address] [place] Magnesium [Moles/Vol] 0.30 mmol/L Low 0.45-0.60 [facility] Comment on above: Order Comment: Speci men Type: ARTERIAL BLOOD SPECIMENOrdering Facility: [facility] Address: [address] [place] [address] Performed By: #### A LLMG ####[facility] LABIA [id number] [address] [place] [address] [place] Methemoglobin (Bld) [Mass fraction] 1.6 % High 0.0-1.5 [facility] Comment on above: Order Comment: Speci men Type: ARTERIAL BLOOD SPECIMENOrdering Facility: [facility] Address: [address] [place] [address] Performed By: #### A LLMG ####[facility] LABCLIA [id number] [place] [id number] [place] Oxygen (Bld) [Partial pressure] 168 mm Hg High 85-95 [facility] Comment on above: Order Comment: Speci men Type: ARTERIAL BLOOD SPECIMENOrdering Facility: [facility] Address: [address] [place] [address] Performed By: #### A LLMG ####[facility] LABCLIA [id number] [place] [id number] [place] Oxygen adjusted to patient's actual temperature (Bld) [Partial pressure] 168 mmHg High 85-95 [facility] Comment on above: Order Comment: Speci men Type: ARTERIAL BLOOD SPECIMENOrdering Facility: [facility] Address: [address] [place] [address] Performed By: #### A LLMG ####[facility] LABCLIA [id number] [place] [id number] [place] Oxyhemoglobin (BldA) [Mass fraction] 96 % Normal 95-98 [facility] Comment on above: Order Comment: Speci men Type: ARTERIAL BLOOD SPECIMENOrdering Facility: [facility] Address: [address] [place], [place] [address] Performed By: #### A LLMG ####[facility] LABCLIA [id number] [place] [id number] [place] pH (Bld) 7.39 [pH] Normal 7.35-7.45 [facility] Comment on above: Order Comment: Speci men Type: ARTERIAL BLOOD SPECIMENOrdering Facility: [facility] Address: [address] [place] [address] Performed By: #### A LLMG ####[facility] LABCLIA [id number] [place] [address] [place] pH adjusted to patient's actual temperature (Bld) 7.39 Normal 7.35-7.45 [facility] Comment on above: Order Comment: Speci men Type: ARTERIAL BLOOD SPECIMENOrdering Facility: [facility] Address: [address] [place] [address] Performed By: #### A LLMG ####[facility] LABCLIA [id number] [place] [address] [place] Potassium [Moles/Vol] 2.7 mmol/L Low 3.5-5.0 [facility] Comment on above: Order Comment: Speci men Type: ARTERIAL BLOOD SPECIMENOrdering Facility: [facility] Address: [address] [place] [address] Performed By: #### A LLMG ####[facility] LABCLIA [id number] [place] [address] [place] Sodium [Moles/Vol] 139 mmol/L Normal 136-144 [facility] Comment on above: Order Comment: Speci men Type: ARTERIAL BLOOD SPECIMENOrdering Facility: [facility] Address: [address] [place] [address] Performed By: #### A LLMG ####[facility] LABCLIA [id number] [place] [id number] [place] Base excess Calc (Bld) [Moles/Vol] 1 mmol/L Normal 0-2 [facility] Comment on above: Order Comment: Speci men Type: ARTERIAL BLOOD SPECIMENOrdering Facility: [facility] Address: [address] [place], [place] [address] Performed By: #### A LLMG ####[facility] LABCLIA [id number] [place] [id number] [place] Calcium.ionized (Bld) [Mass/Vol] 1.15 mmol/L Normal 1.08-1.30 [facility] Comment on above: Order Comment: Speci men Type: ARTERIAL BLOOD SPECIMENOrdering Facility: [facility] Address: [address] [place] [address] Performed By: #### A LLMG ####[facility] LABCLIA [id number] [place] [address] [place] Calcium.ionized adjusted to pH 7.4 (BldA) [Moles/Vol] 1.15 mmol/L Normal 1.08-1.30 [facility] Comment on above: Order Comment: Speci men Type: ARTERIAL BLOOD SPECIMENOrdering Facility: [facility] Address: [address] [place] [address] Performed By: #### A LLMG ####[facility] LABCLIA [id number] [address] [place] Carboxyhemoglobin (BldA) [Mass fraction] 2.2 % High 0.0-2.0 [facility] Comment on above: Order Comment: Speci men Type: ARTERIAL BLOOD SPECIMENOrdering Facility: [facility] Address: [address] [place] [address] Result Comment: Carb oxyhemoglobin Reference Range for Smokers: 2.0-8.0% Performed By: #### A LLMG ####[facility] LABCLIA [id number] [address] [place] CO2 (Bld) [Partial pressure] 43 mm Hg Normal 36-46 [facility] Comment on above: Order Comment: Speci men Type: ARTERIAL BLOOD SPECIMENOrdering Facility: [facility] Address: [address] [place] [address] Performed By: #### A LLMG ####[facility] LABCLIA [id number] [place] [address] [place] CO2 adjusted to patient's actual temperature (Bld) [Partial pressure] 43 mmHg Normal 36-46 [facility] Comment on above: Order Comment: Speci men Type: ARTERIAL BLOOD SPECIMENOrdering Facility: [facility] Address: [facility] [place] [address] Performed By: #### A LLMG ####[facility] LABCLIA [id number] [address] [address] [place] Glucose [Mass/Vol] 174 mg/dL High 60-105 [facility] Comment on above: Order Comment: Speci men Type: ARTERIAL BLOOD SPECIMENOrdering Facility: [facility] Address: [address] [place] [address] Performed By: #### A LLMG ####[facility] LABCLIA [id number] [place] [id number] [place] HCO3 (Bld) [Moles/Vol] 25 mmol/L Normal 22-26 [facility] Comment on above: Order Comment: Speci men Type: ARTERIAL BLOOD SPECIMENOrdering Facility: [facility] Address: [address] [place] [address] Performed By: #### A LLMG ####[facility] LABCLIA [id number] [place] [address] [place] Hematocrit (Bld) [Volume fraction] 44.1 % Normal 39.0-51.0 [facility] Comment on above: Order Comment: Speci men Type: ARTERIAL BLOOD SPECIMENOrdering Facility: [facility] Address: [address] [place] [address] Performed By: #### A LLMG ####[facility] LABCLIA [id number] [place] [id number] [place] Hemoglobin (Bld) [Mass/Vol] 14.4 g/dL Normal 13.0-17.0 [facility] Comment on above: Order Comment: Speci men Type: ARTERIAL BLOOD SPECIMENOrdering Facility: [facility] Address: [address] [place] [address] Performed By: #### A LLMG ####[facility] LABCLIA [id number] [place] [address] [place] Lactate [Moles/Vol] 1.6 mmol/L Normal 0.5-2.2 [facility] Comment on above: Order Comment: Speci men Type: ARTERIAL BLOOD SPECIMENOrdering Facility: [facility] Address: [address] [place] [address] Performed By: #### A LLMG ####[facility] LABCLIA [id number] [place] [address] [place] Magnesium [Moles/Vol] 0.48 mmol/L Normal 0.45-0.60 [facility] Comment on above: Order Comment: Speci men Type: ARTERIAL BLOOD SPECIMENOrdering Facility: [facility] Address: [address] [place] [address] Performed By: #### A LLMG ####[facility] LABIA [id number] [place] [address] [place] Methemoglobin (Bld) [Mass fraction] 1.1 % Normal 0.0-1.5 [facility] Comment on above: Order Comment: Speci men Type: ARTERIAL BLOOD SPECIMENOrdering Facility: [facility] Address: [address] [place] [address] Performed By: #### A LLMG ####[facility] LABCLIA [id number] [place] [address] [place] Oxygen (Bld) [Partial pressure] 92 mm Hg Normal 85-95 [facility] Comment on above: Order Comment: Speci men Type: ARTERIAL BLOOD SPECIMENOrdering Facility: [facility] Address: [address] [place] [address] Performed By: #### A LLMG ####[facility] LABIA [id number] [place] [address] [place] Oxygen adjusted to patient's actual temperature (Bld) [Partial pressure] 92 mmHg Normal 85-95 [facility] Comment on above: Order Comment: Speci men Type: ARTERIAL BLOOD SPECIMENOrdering Facility: [facility] Address: [address] [place] [address] Performed By: #### A LLMG ####[facility] LABCLIA [id number] [address] [address] [place] Oxyhemoglobin (BldA) [Mass fraction] 94 % Low 95-98 [facility] Comment on above: Order Comment: Speci men Type: ARTERIAL BLOOD SPECIMENOrdering Facility: [facility] Address: [address] [place] [address] Performed By: #### A LLMG ####[facility] LABCLIA [id number] [address] [place] [address] [place] pH (Bld) 7.39 [pH] Normal 7.35-7.45 [facility] Comment on above: Order Comment: Speci men Type: ARTERIAL BLOOD SPECIMENOrdering Facility: [facility] Address: [address] [place] [address] Performed By: #### A LLMG ####[facility] LABCLIA [id number] [place] [id number] [place] pH adjusted to patient's actual temperature (Bld) 7.39 Normal 7.35-7.45 [facility] Comment on above: Order Comment: Speci men Type: ARTERIAL BLOOD SPECIMENOrdering Facility: [facility] Address: [address] [place] [address] Performed By: #### A LLMG ####[facility] LABIA [id number] [place] [id number] [place] Potassium [Moles/Vol] 3.5 mmol/L Normal 3.5-5.0 [facility] Comment on above: Order Comment: Speci men Type: ARTERIAL BLOOD SPECIMENOrdering Facility: [facility] Address: [address] [place] [address] Performed By: #### A LLMG ####[facility] LABCLIA [id number] [place] [address] [place] Sodium [Moles/Vol] 134 mmol/L Low 136-144 [facility] Comment on above: Order Comment: Speci men Type: ARTERIAL BLOOD SPECIMENOrdering Facility: [facility] Address: [address] [place] [address] Performed By: #### A LLMG ####[facility] LABCLIA [id number] [place] [address] [place] CONFIRM BLOOD TYPEon 025 ABO O Normal [facility] Comment on above: Order Comment: Speci men Type: BLOOD SPECIMENOrdering Facility: [facility] Address: [address] [place] [address] Performed By: #### C ONABO ####[facility] BANKCLIA [id number] [place] [address] [place] Rh Nom (Bld) Positive Normal [facility] Comment on above: Order Comment: Speci men Type: BLOOD SPECIMENOrdering Facility: [facility] Address: [address] [place] [address] Performed By: #### C ONABO ####[facility] BLOOD BANKCLIA [id number] [place] [address] [place] OPERATIVE NOon 05-04-2025 OPERATIVE NO Normal [facility] PD-L1 22C3on 05-04-2025 AP BIOMARKER DISCLAIMER Normal [facility] Comment on above: Order Comment: Speci men Type: TISSUE SPECIMENOrdering Facility: [facility] Address: [address] [place] [address] Result Comment: Debra salcedo Developed Test (LDT) Disclaimer:Performance characteristics of immunohistochemical, immunofluorescent and chromogenic in-situ hybridization tests have been determined by the performing laboratory within [facility]???s Ajith Moya Pathology and Laboratory Medicine Department ([facility], [facility], [facility], [facility], [facility], [facility], or [facility]) in a manner consistent with CLIA requirements. One or more of these tests have not been cleared or approved by the FDA. [facility] is regulated under CLIA as qualified to perform high-complexity testing. These tests are used for clinical purposes. They should not be regarded as investigational or for research. Positive and negative controls stain appropriately. Performed By: #### L [id number] ####[facility] LABCLIA [id number] [address] AP BLOCK ID [id number] Normal [facility] Comment on above: Order Comment: Speci men Type: TISSUE SPECIMENOrdering Facility: [facility] Address: [address] [place] [address] Performed By: #### L [id number] ####[facility] LABCLIA [id number] [address] BIOMARKER INTERPRETATION COMMENT AND REFERENCE RANGE Normal [facility] Comment on above: Order Comment: Speci men Type: TISSUE SPECIMENOrdering Facility: [facility] Address: [address] [place] [address] Result Comment: Inte rpretation standard:CPS: The composite positive score is determined by the number of PD-L1 staining cells (tumor cells, lymphocytes, macrophages) divided by the total number of tumor cells evaluated, then multiplied by 100.Reference Range for PDL1 expressionPrimary Tumor TypeGastric/Esophageal/EGJ adenocarcinoma, Head/Neck Squamous Cell Carcinoma, Cervical Cancer Reference Range: CPS less than 1: Negative CPS greater than or equal to 1: PositiveTriple-negative Breast Cancer, Esophageal Squamous Cell Carcinoma, Urothelial Carcinoma. Reference Range: CPS less than 10: Negative CPS greater than or equal to 10: PositiveThe PDL1 expression in the tumor is interpreted to determine if the patient should be considered for treatment with pembrolizumab (KEYTRUDA). Please refer to the Product label for additional information. ([email or web address] Performed By: #### L [id number] ####[facility] LABCLIA [id number] [address] [facility] [address] [id number] [address] [place] BIOMARKER METHOD Normal [facility] Comment on above: Order Comment: Speci men Type: TISSUE SPECIMENOrdering Facility: [facility] Address: [address] [place], [place] [address] Performed By: #### L [id number] ####[facility] LABCLIA [id number] [facility] [id number], [place] [address] [place] [facility] CASE NUMBER PD-L1 [id number] Normal [facility] Comment on above: Order Comment: Speci men Type: TISSUE SPECIMENOrdering Facility: [facility] Address: [address] [place], [place] [address] Performed By: #### L [id number] ####[facility] LABCLIA [id number] [facility] [place]33Q[place]MQQ[place], [place] [address] [place] COMBINED POSITIVE SCORE (CPS) (GEJ, H AND N, CERVICAL) 20 Normal [facility] Comment on above: Order Comment: Speci men Type: TISSUE SPECIMENOrdering Facility: [facility] Address: [address] [place] [address] Performed By: #### L [id number] ####[facility] LABCLIA [id number] [facility] [id number], [place] [address] [place] FIXATIVE Formalin, 10% Neutra l Buffered Normal [facility] Comment on above: Order Comment: Speci men Type: TISSUE SPECIMENOrdering Facility: [facility] Address: [address] [place] [address] Performed By: #### L [id number] ####[facility] LABCLIA [id number] [facility] [place] W83GLIULDMBA, [place] [address] [place] PD-L1 22C3 CPS (GEJ, H AND N, CERVICAL) INTERPRETATION Positive Abnormal [facility] Comment on above: Order Comment: Speci men Type: TISSUE SPECIMENOrdering Facility: [facility] Address: [address] [place], [place] [address] Performed By: #### L [id number] ####[facility] LABCLIA [id number] [place] [address] [place] PD-L1 TUMOR TYPE Primary Head and Nec k Squamous Cell Carcinoma Normal [facility] Comment on above: Order Comment: Speci men Type: TISSUE SPECIMENOrdering Facility: [facility] Address: [address] [place] [address] Performed By: #### L [id number] ####[facility] LABCLIA [id number] [place] [address] [place] Pathology biopsy report Kvng (Tiss)on 05-04-2025 AP DISCLAIMER Normal [facility] Comment on above: Order Comment: Speci men Type: TISSUE SPECIMENOrdering Facility: [facility] Address: [address] [place] [address] Result Comment: Debra salcedo Developed Test (LDT) Disclaimer:Performance characteristics of immunohistochemical, immunofluorescent, and chromogenic in-situ hybridization tests have been determined by the performing laboratory within [facility]'s [facility] Pathology and Laboratory Medicine Department ([facility], [facility], [facility], [facility], [facility], [facility], or [facility]) in a manner consistent with CLIA requirements. One or more of these tests may not have been cleared or approved by the FDA. RT-PLM is regulated under CLIA as qualified to perform high-complexity testing. These tests are used for clinical purposes. These should not be regarded as investigational or for research. Positive and negative controls stain appropriately. Performed By: #### 6 6121-5 ####[facility] LABCLIA [id number] [place] [address] [place] BLOCK FOR ADDITIONAL BIOMARKERS/MOLECULAR STUDIES O3 Normal [facility] Comment on above: Order Comment: Speci men Type: TISSUE SPECIMENOrdering Facility: [facility] Address: [address] [place] [address] Performed By: #### 6 6121-5 ####[facility] LABCLIA [id number] [address] [place] CASE REPORT Normal [facility] Comment on above: Order Comment: Speci men Type: TISSUE SPECIMENOrdering Facility: [facility] Address: [address] [place] [address] Result Comment: Surg ical Pathology Report Case: [id number] Provider: Matt Olivo MD Collected: 05/04/2025 08:06 AMOrdering Location: Admitting Received: 05/04/2025 08:08 AMPathologist: Medardo Munoz MDIntraop: Rufino Mann MDSpecimens: A) - Tongue, Biopsy, left base of tongue B) - Nerve, Biopsy, LEFT facial nerve, mastoid segment C) - Ear, Middle Ear Contents Left, left middle ear contents-mastoid D) - Nerve, Biopsy, 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 E) - Bone and Soft Tissue, left lateral temporal bone resection-stitch alegria lateral canal F) - Margin, Excision, Left distal midface nerve margin G) - Margin, Excision, Left distal zygomatic nerve branch H) - Margin, Excision, left distal buccal branch I) - Neck, Dissection, Left, bilateral 1A J) - Neck, Dissection, Left, left level 1B K) - Neck, Dissection, Left, left level 3 L) - Neck, Dissection, Left, left level 2 M) - Neck, Dissection, Left, left level 4 N) - Parotid Gland, Left, Resection, left parotid O) - Parotid Gland, Left, Resection, Left radical parotidectomy Performed By: #### 6 6121-5 ####[facility] LABIA [id number] [place] [address] [place] CLINICAL HISTORY Normal [facility] Comment on above: Order Comment: Speci men Type: TISSUE SPECIMENOrdering Facility: [facility] Address: [address] [place] [address] Result Comment: 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 I mmunohistochemistry and in situ hybridization (DMITRIY) were performed (block A1) for the left base of tongue biopsy (specimen A). 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 It is also positive for the high-risk human papillomavirus (HPV) subtypes by DMITRIY.PD-L1 immunohistochemistry is being performed (block A1) and this result will be issued in a separate report.15. 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 High-grade features were not identified. There is multifocal intra- and extra-tumoral perineural invasion, including involvement of the left facial nerve (specimen B). Focal vascular invasion is present. Although lymphatic invasion was not identified, the carcinoma directly invades one of ten intra-/kim-parotid lymph nodes. The carcinoma invades bone in the deep aspect of this specimen, but a separately submitted left lateral temporal bone resection (specimen E) is negative for neoplasm. All other separately submitted final margins of excision are negative for neoplasm. The pathologic stage is pT4a pN1, based on the examination of thirty-two lymph nodes (specimens I-O), with one involved by basal cell adenocarcinoma ().Dr. Magdalena Obregon was consulted (slides O4 & O13) and she agrees with the diagnosis of basal cell adenocarcinoma, as well the findings of lymph node involvement and focal vascular invasion. Performed By: #### 6 6121-5 ####[facility] [id number] [address] FINAL DIAGNOSIS Normal [facility] Comment on above: Order Comment: Speci men Type: TISSUE SPECIMENOrdering Facility: [facility] Address: [address] [place] [address] Result Comment: 1. 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 - See comment.2. Left facial nerve, mastoid segment, excision (B): - Basal cell adenocarcinoma, involving nerve.3. Left middle ear contents, mastoid, excision (C): - Negative for neoplasm.4. Left facial nerve tympanic segment, excision (D): - Nerve, negative for neoplasm.5. Left lateral temporal bone, excision (E): - Negative for neoplasm.6. Left distal midface nerve margin, excision (F): - Nerve, negative for neoplasm.7. Left distal zygomatic nerve branch, excision (G): - Nerve, negative for neoplasm.8. Left distal buccal branch, excision (H): - Nerve, negative for neoplasm.9. Bilateral 1A, excision (I): - Three lymph nodes, negative for neoplasm (0/3).10. Left level 1B, excision (J): - Two lymph nodes, negative for neoplasm (0/2). - Submandibular gland, negative for neoplasm.11. Left level 3, excision (K): - Eight lymph nodes, negative for neoplasm (0/8).12. Left level 2, excision (L): - Eight lymph nodes, negative for neoplasm (0/8).13. Left level 4, excision (M): - Fibroadipose tissue, negative for neoplasm. - No lymph nodes identified.14. Left parotid, excision (N): - One lymph node, negative for neoplasm (0/1).15. 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 - See comment.APH 05/25/2025 at 0753 EDT Performed By: #### 6 6121-5 ####[facility] LABCLIA [id number] [place] [address] [place] GROSS DESCRIPTION [facility] Comment on above: Order Comment: Speci men Type: TISSUE SPECIMENOrdering Facility: [facility] Address: [address] [place] [address] Result Comment: Finn mayer, BiopsyReceived fresh for frozen section designated left base of tongue are 2 pink-fatima to fatima-davis exophytic fragments of soft tissue that aggregate to 0.9 x 0.5 x 0.4 cm. The specimen is entirely submitted for intraoperative consultation.WE May 04, 2025 8:32 AMGross examination performed at [facility], [address] [place] [address]. Nerve, BiopsyLabeled: Left facial nerve, mastoid segmentReceived: Fresh for intraoperative diagnosisNumber of tissue fragments: 1Specimen dimensions: 0.5 x 0.4 x 0.2 cmDescription: Fatima-red, unremarkable segment of nerve oriented with a stitch designating proximal (inked blue)Cassette Code: Totally submitted intact for intraoperative diagnosis in cassette [id number] examination performed at [address] [address]GBM 05/04/25 12:20 PMC. Ear, Middle Ear Contents LeftLabeled: Left middle ear contents mastoidReceived: FormalinNumber of tissue fragments: 1Specimen dimensions: 0.8 x 0.7 x 0.1 cmMucosa: Present; fatima-pink tissueCassette Code: Totally submitted intact in cassette C1.D. Nerve, BiopsyLabeled: Left facial nerve tympanic segmentReceived: FormalinOrientation: Stitch alegria proximalSpecimen dimensions: 0.6 x 0.4 x 0.3 cmInk code: Stitched end blackCassette code: Entirely submitted in cassette D1.MLG 05/05/25 8:25 AMGross examination performed at [facility], [address] [place] [address]. Bone and Soft TissueLabeled: Left lateral temporal bone resectionReceived: FormalinOverall Specimen Dimensions: 2.5 x 2.0 x 1.5 cmAttached Structures: N/ADescription: Cylindrical piece of fatima-white luminal tissueTumor/ Mass/Nodule/Lesion: N/AOrientation: Stitch alegria lateral canalInk Code:Black: Peripheral soft tissueBlue: lateral sutured endOrange: opposing medial endOther Findings: Sectioning reveals unremarkable cut surfacesPhotograph: NoReviewed by: Dr. Mccarthy Code:E1 medial orange margin, shavedE2-E3 Central aspect serially sectioned, following decalcification in formic acidE4 Lateral blue inked margin, shaved, following decalcification in formic acidMLG 05/05/25 12:11 PMGross examination performed at [facility], [address] [place] [address]. Margin, ExcisionLabeled: Margin, excision-left distal midface nerve marginReceived: Fresh for intraoperative consultationNumber of tissue fragments: 1Specimen dimensions: 0.3 x 0.2 x 0.1 cmMucosa: Absent; pink-fatima soft tissue, unorientedCassette Code: Totally submitted intact in FSF1G. Margin, ExcisionLabeled: Margin, excision-left distal zygomatic nerve branchReceived: Fresh for intraoperative consultationNumber of tissue fragments: 1Specimen dimensions: 0.2 x 0.1 x 0.1 cmMucosa: Absent; fatima soft tissue, unorientedCassette Code: Totally submitted intact in LIG9Awbjy examination performed at [facility], [address] [place], [place] [address] CLIA# [id number] 05/04/25 2:25 PMH. Margin, ExcisionLabeled: Margin-distal buccal branchReceived: Fresh for intraoperative consultationNumber tissue fragments: 1Specimen dimensions: 0.3 x 0.2 x 0.1 cmMucosa: Absent; fatima soft tissue, unoriented.Cassette code: Totally submitted intact in CGG0Hhouo examination performed at [address] [address] 05/04/25 2:50 PMI. Neck, Dissection, LeftLabeled: Bilateral 1AReceived: FormalinOrientation: N/ASize: 4.4 x 3.7 x 1.5 cmLymph node candidates: 6, ranging in size from 0.1-0.7 cmCassette Code:I1 2 possible lymph nodesI2 4 possible lymph nodesJ. Neck, Dissection, LeftLabeled: Left level 1BReceived: FormalinOrientation: N/ASize: 4.5 x 3.5 x 2.5 cmLymph node candidates: 3, ranging in size from 0.2-0.6 cmDescription: Submandibular gland identified measuring 4.5 x 3.0 x 0.5 cm.Cassette Code:J1 3 possible lymph nodesJ2 remaining adipose tissue with possible lymph node candidatesJ3 labor union business representative sections of submandibular glandK. Neck, Dissection, LeftLabeled: Left level 3Received: FormalinOrientation: N/ASize: 5.0 x 5.0 x 1.5 cmLymph node candidates: 13, ranging in size from 0.3-1.4 cmCassette Code:K1 3 intact lymph nodesK2 5 intact possible lymph nodesK3 5 intact possible lymph nodesL. Neck, Dissection, LeftLabeled: Left level 2Received: FormalinOrientation: N/ASize: 4.5 x 4.0 x 1.4 cmLymph node candidates: 9, ranging in size from 0.3-1.5 cmCassette Code:L1-L2 4 intact lymph nodes per cassetteL3 1 bisected possible lymph nodeM. Neck, Dissection, LeftLabeled: Left level 4Received: FormalinOrientation: N/ASize: 4.5 x 4.0 x 1.5 cmLymph node candidates: 6, ranging in size from 0.2-0.7 cmCassette Code:M1-M2 3 intact possible lymph nodes per cassetteN. Parotid Gland, Left, ResectionLabeled: Left parotidReceived: FormalinOrientation: N/ASpecimen dimensions: 1.5 x 1.2 x 0.9 cmInk code: BlackCassette code: Serially section in cassette N1.[facility] 05/05/25 11:39 AMGross examination performed at [facility], [address] [place] [address], [place], [place] [address]J. Parotid Gland, Left, ResectionLabeled: Left radical parotidectomyReceived: FormalinOrientation: N/ASpecimen dimensions: 130.58 gm, 11.5 x 7.6 x 4.4 cm (fatima-pink to fatima-yellow and lobulated with significant cautery present)Ink code: Superficial surface inked black and deep surface inked greenLesion size: 5.0 x 4.6 x 4.0 cmLesion description: Fatima-pink, irregular and firm with focal hemorrhage; abuts bone (see photo); some cystic components containing red hemorrhagic to fatima-yellow gelatinous materialDistance from margins: Less than 0.1 cmOther Findings: Portion of fatima-white and firm bone present measuring 2.0 x 1.4 x 1.2 cmUninvolved tissue: Fatima-yellow, lobulated with some more firm areasLymph node candidates: 23 possible, 0.2 to 1.0 cm in greatest dimension (some possible lymphovascular invasion is identified)Gross photograph: YesStaff: reviewed with Dr. Mccarthy Code:O1 mass with relationship to deep surface (green)O2 mass with relationship to superficial surface (black)O3-O5 additional sections of mass O4 cystic components of mass and relationship to uninvolved O5 mass with relationship to bone following decalcification in formic acidO6 fatima-white firmer areas of uninvolved with 4 intact lymph node candidatesO7 5 lymph node candidates, intactO8 4 lymph node candidates, intactO9 4 lymph node candidates, ifssurR64 4 lymph node candidates, [id number] 1 lymph node candidate, [id number] one lymph node candidate or possible vascular involvementSEP/MLG 05/05/25 12:39 [place] [address] Performed By: #### 6 6121-5 ####[facility] LABCLIA [id number] [place] [address] [place] INTRAOPERATIVE DIAGNOSIS Normal [facility] Comment on above: Order Comment: Speci men Type: TISSUE SPECIMENOrdering Facility: [facility] Address: [address] [place] [address] Result Comment: Finn mayer, BiopsyFSA1: Positive for carcinoma (Dr. Mann)May 04, 2025 8:32 AMIntraoperative diagnosis performed at [facility], [address] [place] [address] CLIA# [id number]. Nerve, BiopsyFSB1. Positive for carcinoma (Dr. Mann).Intraoperative diagnosis performed at [place] [address] CLIA# [id number]. Margin, ExcisionFSF1. Negative; no nerve tissue identified.Dr. Mann.Intraoperative diagnosis performed at [facility], [address] [place] [address] CLIA# [id number]. Margin, ExcisionFSG1. Negative.Dr. Mann.Intraoperative diagnosis performed at [facility], [facility] [place] [address] CLIA# [id number]. Margin, ExcisionFSH 1: Negative for carcinomaDrSteffi Taylorraoperative diagnosis performed at [facility], [address] [place] [address] CLIA# [id number]. Parotid Gland, Left, Resection Performed By: #### 6 6121-5 ####[facility] LABCLIA [id number] [address] OF [place] SYNOPTIC REPORT Normal [facility] Comment on above: Order Comment: Speci men Type: TISSUE SPECIMENOrdering Facility: [facility] Address: [address] [place] [address] Result Comment: RYAN R SALIVARY GLANDSMAJOR SALIVARY GLANDS: RESECTION - All Lkrcbolme5yd Edition - Protocol posted: 03/18/2023SPECIMEN Procedure: Parotidectomy, total Procedure: Neck (lymph node) dissection: Left MRND, levels 1-4TUMOR Tumor Focality: Unifocal Tumor Site: Entire parotid gland Tumor Laterality: Left Tumor Size: Greatest Dimension (Centimeters): 5.0 cm Histologic Type: Basal cell adenocarcinoma Grade / Intrinsic Biologic Potential: Low Macroscopic Tumor Extent: Facial nerve Lymphatic and / or Vascular Invasion: Present Perineural Invasion: Present Extent / Type of Perineural Invasion: Extratumoral Tumor Comment: Involves facial nerveMARGINS Margin Status: All margins negative for carcinoma Distance from Invasive Tumor to Closest Margin: Cannot be determined: Separately submitted margins Closest Margin(s) to Carcinoma: Cannot be determinedREGIONAL LYMPH NODES Regional Lymph Node Status: : Tumor present in regional lymph node(s) Number of Lymph Nodes with Tumor: 1 Laterality of Lymph Node(s) with Tumor: Ipsilateral (including midline) Nas Site(s) with Tumor: Intra / periparotid Size of Largest Nas Metastatic Deposit: Cannot be determined: At least 0.5 cm Extranodal Extension (CHANDANA): Cannot be determined: Lymph node involved by direct extension from primary tumor Number of Lymph Nodes Examined: 32pTNM CLASSIFICATION (AJCC 8th Edition) Reporting of pT, pN, and (when applicable) pM categories is based on information available to the pathologist at the time the report is issued. As per the AJCC (Chapter 1, 8th Ed.) it is the managing physician???s responsibility to establish the final pathologic stage based upon all pertinent information, including but potentially not limited to this pathology report. pT Category: pT4a pN Category: pN1 Performed By: #### 6 6121-5 ####[facility] LABCLIA [id number] [place] [address] [place] Tiss Path Bx reporton 2024 FINAL PERFORMING LAB Normal [facility] Comment on above: Order Comment: Speci men Type: TISSUE SPECIMENOrdering Facility: [facility] Address: [address] [place] [address] Result Comment: Diag nostic interpretation performed at: [facility], [address] [place] [address] CLIA# [id number] Director: Matias Leung MD Performed By: #### 6 6121-5 ####[facility] LABCLIA [id number] [address] STATES [facility] Result Comment: Diag nostic interpretation performed at: [facility], [address] [place] [address] CLIA# [id number] Director: Matias Leung MDElectronically signed out by: Medardo Munoz MD Performed By: #### L [id number] ####[facility] LABCLIA [id number] [address] STATES [place] CNOVon 05-03-2025 CNOV Normal [facility] HEARING TEST/AUDIOGRAMon [facility] CNOVon 04-27-2025 CNOV Normal [facility] CNOV Normal [facility] Basic metabolic 2000 panelon 04-25-2025 Anion gap [Moles/Vol] 13 mmol/L Normal 8-15 [facility] Comment on above: Order Comment: Speci men Type: BLOOD SPECIMENOrdering Facility: [facility] Address: [address] [place], [place] [address] Performed By: #### 2 4321-2 ####[facility] SPENSERALVAROWPKLIA [id number] [place] [address] [place] Calcium [Mass/Vol] 9.2 mg/dL Normal 8.5-10.2 [facility] Comment on above: Order Comment: Speci men Type: BLOOD SPECIMENOrdering Facility: [facility] Address: [address] [place] [address] Performed By: #### 2 4321-2 ####[facility] CLINICWPKLIA [id number] [place] [address] [place] Chloride [Moles/Vol] 97 mmol/L Low 98-107 [facility] Comment on above: Order Comment: Speci men Type: BLOOD SPECIMENOrdering Facility: [facility] Address: [address] [place] [address] Performed By: #### 2 4321-2 ####[facility]AA [id number] [place] [address] [place] CO2 [Moles/Vol] 26 mmol/L Normal 22-30 [facility] Comment on above: Order Comment: Speci men Type: BLOOD SPECIMENOrdering Facility: [facility] Address: [address] [place] [address] Performed By: #### 2 4321-2 ####[facility] CLINICWNCLIA [id number] [place] [address] [place] Creatinine [Mass/Vol] 1.27 mg/dL High 0.73-1.22 [facility] Comment on above: Order Comment: Speci men Type: BLOOD SPECIMENOrdering Facility: [facility] Address: [address] [place], [place] [address] Performed By: #### 2 4321-2 ####[facility] CLINICWNCLIA [id number] [place] [address] [place] eGFRcr SerPlBld CKD-EPI 2020 58 mL/min/1.73m??? Low >=60 [facility] Comment on above: Order Comment: Saira jade Type: BLOOD SPECIMENOrdering Facility: [facility] Address: [address] [place] [address] Result Comment: Yesenia mated Glomerular Filtration Rate (eGFR) is calculated using the 2020 CKD-EPI creatinine equation. This equation utilizes serum creatinine, sex, and age as parameters. The creatinine assay has traceable calibration to isotope dilution-mass spectrometry. Refer to KDIGO guidelines for clinical interpretation. In patients with unstable renal function, e.g. those with acute kidney injury, the eGFR may not accurately reflect actual GFR. Performed By: #### 2 4321-2 ####[facility] [id number] [place] [address] [place] Glucose [Mass/Vol] 158 mg/dL High 74-99 [facility] Comment on above: Order Comment: Saira jade Type: BLOOD SPECIMENOrdering Facility: [facility] Address: [address] [place] [address] Result Comment: The [place] Diabetes [employer] (ADA) provides guidance for cutoff values for fasting glucose and random glucose. The ADA defines fasting as no caloric intake for at least 8 hours. Fasting plasma glucose results between 100 to 125 mg/dL indicate increased risk for diabetes (prediabetes).Fasting plasma glucose results greater than or equal to 126 mg/dL meet the criteria for diagnosis of diabetes. In the absence of unequivocal hyperglycemia, results should be confirmed by repeat testing. In a patient with classic symptoms of hyperglycemia or hyperglycemic crisis, random plasma glucose results greater than or equal to 200 mg/dL meet the criteria for diagnosis of diabetes.Reference: Standards of Medical Care in Diabetes 2016, [place] [employer]. Diabetes Care. 2016.39(Suppl 1). Performed By: #### 2 4321-2 ####[facility] [id number] [place] [address] [place] Potassium [Moles/Vol] 3.5 mmol/L Low 3.7-5.1 [facility] Comment on above: Order Comment: Speci men Type: BLOOD SPECIMENOrdering Facility: [facility] Address: [address] [place] [address] Performed By: #### 2 4321-2 ####[facility]ITALPKLIA [id number] [place] [address] [place] Sodium [Moles/Vol] 136 mmol/L Normal 136-144 [facility] Comment on above: Order Comment: Speci men Type: BLOOD SPECIMENOrdering Facility: [facility] Address: [address] [place] [address] Performed By: #### 2 4321-2 ####[facility] [id number] [place] [address] [place] Urea nitrogen [Mass/Vol] 28 mg/dL High 9-24 [facility] Comment on above: Order Comment: Speci men Type: BLOOD SPECIMENOrdering Facility: [facility] Address: [address] [place] [address] Performed By: #### 2 4321-2 ####[facility] [id number] [place] [address] [place] CBC panel Auto (Bld)on 04-25 Erythrocyte distribution width (RBC) [Ratio] 14.6 % Normal 11.5-15.0 [facility] Comment on above: Order Comment: Speci men Type: BLOOD SPECIMENOrdering Facility: [facility] Address: [address] [place] [address] Performed By: #### 5 8410-2 ####[facility] [id number] [place] [address] [place] Hematocrit (Bld) [Volume fraction] 48.3 % Normal 39.0-51.0 [facility] Comment on above: Order Comment: Speci men Type: BLOOD SPECIMENOrdering Facility: [facility] Address: [address] [place], [place] [address] Performed By: #### 5 8410-2 ####[facility] SPENSERROSEY [id number] [place] [address] [place] Hemoglobin (Bld) [Mass/Vol] 16.6 g/dL Normal 13.0-17.0 [facility] Comment on above: Order Comment: Speci men Type: BLOOD SPECIMENOrdering Facility: [facility] Address: [address] [place], [place] [address] Performed By: #### 5 8410-2 ####[facility]OSPITALPKRalph [id number] [place] [address] [place] MCH (RBC) [Entitic mass] 30.3 pg Normal 26.0-34.0 [facility] Comment on above: Order Comment: Speci men Type: BLOOD SPECIMENOrdering Facility: [facility] Address: [address] [place] [address] Performed By: #### 5 8410-2 ####[facility]OSPITALNCA [id number] [address] [place] MCHC (RBC) [Mass/Vol] 34.4 g/dL Normal 30.5-36.0 [facility] Comment on above: Order Comment: Speci men Type: BLOOD SPECIMENOrdering Facility: [facility] Address: [address] [place], [place] [address] Performed By: #### 5 8410-2 ####[facility]ITALNCLIA [id number] [place] [address] [place] MCV (RBC) [Entitic vol] 88.1 fL Normal 80.0-100.0 [facility] Comment on above: Order Comment: Speci men Type: BLOOD SPECIMENOrdering Facility: [facility] Address: [address] [place], [place] [address] Performed By: #### 5 8410-2 ####[facility] MILLTOWNCLIA [id number] [place] [address] [place] Nucleated RBC (Bld) [#/Vol] 10*3/uL Normal <0.01 [facility] Comment on above: Order Comment: Speci men Type: BLOOD SPECIMENOrdering Facility: [facility] Address: [address] [place] [address] Performed By: #### 5 8410-2 ####[facility] SPENSERWNCLIA [id number] [place] [address] [place] Platelet mean volume (Bld) [Entitic vol] 9.3 fL Normal 9.0-12.7 [facility] Comment on above: Order Comment: Speci men Type: BLOOD SPECIMENOrdering Facility: [facility] Address: [address] [place] [address] Performed By: #### 5 8410-2 ####[facility]IC[facility]CL[facility] [id number] [place] [address] [place] Platelets (Bld) [#/Vol] 272 10*3/uL Normal 150-400 [facility] Comment on above: Order Comment: Speci men Type: BLOOD SPECIMENOrdering Facility: [facility] Address: [address] [place] [address] Performed By: #### 5 8410-2 ####[facility] MILLWNCLIA [id number] [place] [address] [place] RBC (Bld) [#/Vol] 5.48 10*6/uL Normal 4.20-6.00 [facility] Comment on above: Order Comment: Speci men Type: BLOOD SPECIMENOrdering Facility: [facility] Address: [address] [place] [address] Performed By: #### 5 8410-2 ####[facility] [id number] [place] [address] [place] WBC (Bld) [#/Vol] 16.99 10*3/uL High 3.70-11.00 [facility] Comment on above: Order Comment: Speci men Type: BLOOD SPECIMENOrdering Facility: [facility] Address: [address] [place] [address] Performed By: #### 5 8410-2 ####[facility] [id number] [place] [address] [place] [id number] 04-25-2025 ECG01 Normal [facility] HISTORY PHYSICALon HISTORY PHYSICAL Normal [facility] TYPE + SCREENon 04-25-2025 ABO O Normal [facility] Comment on above: Order Comment: Speci men Type: BLOOD SPECIMENOrdering Facility: [facility] Address: [address] [place] [address] Performed By: #### T SCR ####[facility] BLOOD BANKCLIA [id number] [place] [address] [place] Rh Nom (Bld) Positive Normal [facility] Comment on above: Order Comment: Speci men Type: BLOOD SPECIMENOrdering Facility: [facility] Address: [address] [place] [address] Performed By: #### T SCR ####[facility] MA[facility] BLOOD BANKCLIA [id number] [place] [address] [place] TYPE AND SCREEN EXPIRATION 04/28/2025 23:59 Normal [facility] Comment on above: Order Comment: Speci men Type: BLOOD SPECIMENOrdering Facility: [facility] Address: [address] [place] [address] Performed By: #### T SCR ####[facility] MA[facility] BLOOD BANKCLIA [id number] [place] [address] [place] XR CHEST 2V FRONTAL/LATon XR CHEST 2V FRONTAL/LAT Normal [facility] XR Chest PA and Lateralon IMPRESSION: Elevation of the right lateral hemidiaphragm with chronic right basilar and lateral pleural thickening Optical Glass Sawyer: RUBY Transcribe Date/Time: Apr 25 2025 9:42A Dictated by : BERTO GOMEZ MD This examination was interpreted and the report reviewed and electronically signed by: BERTO GOMEZ MD on Apr 25 2025 9:45AM [facility] DIVISION OF RADIOLOGY * * *Final Report* * * DATE OF EXAM: Apr 25 2025 9:35AM [id number] - XR CHEST 2V FRONTAL/LAT / PROCEDURE REASON: Pre-operative examination * * * * Physician Interpretation * * * * EXAMINATION: CHEST RADIOGRAPH (2 VIEW FRONTAL & LATERAL) CLINICAL HISTORY: Pre-operative examination MQ: [id number] EXAM DATE/TIME: 04/25/2025 9:35 AM COMPARISON: Correlation made to CT chest dated 05/09/2024 and PET/CT dated 02/14/2025 RESULT: Lines, tubes, and devices: None. Lungs and pleura: Elevation of the right lateral hemidiaphragm with chronic right basilar and lateral pleural thickening. No radiographic evidence of focal consolidation. No pneumothorax Cardiomediastinal silhouette: Normal cardiomediastinal silhouette. Bones and soft tissues: Remote right rib fracture deformities. Degenerative changes DIVISION OF RADIOLOGY Provider, [facility] - 04/25/2025 * * *Final Report* * * DATE OF EXAM: Apr 25 2025 9:35AM [id number] - XR CHEST 2V FRONTAL/LAT / PROCEDURE REASON: Pre-operative examination * * * * Physician Interpretation * * * * EXAMINATION: CHEST RADIOGRAPH (2 VIEW FRONTAL & LATERAL) CLINICAL HISTORY: Pre-operative examination MQ: [id number] EXAM DATE/TIME: 04/25/2025 9:35 AM COMPARISON: Correlation made to CT chest dated 05/09/2024 and PET/CT dated 02/14/2025 RESULT: Lines, tubes, and devices: None. Lungs and pleura: Elevation of the right lateral hemidiaphragm with chronic right basilar and lateral pleural thickening. No radiographic evidence of focal consolidation. No pneumothorax Cardiomediastinal silhouette: Normal cardiomediastinal silhouette. Bones and soft tissues: Remote right rib fracture deformities. Degenerative changes IMPRESSION IMPRESSION: Elevation of the right lateral hemidiaphragm with chronic right basilar and lateral pleural thickening Optical Glass Sawyer: RUBY Transcribe Date/Time: Apr 25 2025 9:42A Dictated by : BERTO GOMEZ MD This examination was interpreted and the report reviewed and electronically signed by: BERTO GOMEZ MD on Apr 25 2025 9:45AM EST [facility] Radiology Study observation (narrative) [facility] XR Chest PA and LateralOrder ed By: Ccf Provider on 04-25-2025 [facility] CNPNon 04-21-2025 CNPN Normal [facility] A1Con 04-19-2025 Glucose [Mass/Vol] 117 mg/dL Normal [facility] Comment on above: Result Comment: Yesenia mated Average Glucose calculated by equation ((28.7xA1C)-46.7) Estimated average glucose (eAG) is a calculated value from Hemoglobin A1C and is labor union business representative of the average blood glucose level in the last 2-3 month period. Normal range: less than 114 mg/dL Performed By: #### C BC, ADIFF, ANEU, A1C, PSA, CMP, TSHR, GFR, LIPID, FT4 #### [address] [place], [place] [address] HbA1c (Bld) [Mass fraction] 5.7 % Normal 4.3-6.4 [facility] Comment on above: Performed By: #### C BC, ADIFF, ANEU, A1C, PSA, CMP, TSHR, GFR, LIPID, FT4 #### [address] [place], [place] [address] LMERLYon 04-19-2025 Lyme Total Antibody KATYA Negative Normal Negative [facility] Comment on above: Result Comment: Lyme antibodies not detected. Reflex testing is not indicated. No laboratory evidence of infection with B. burgdorferi (Lyme disease). Negative results may occur in patients recently infected (less than or equal to 14 days) with B. burgdorferi. If recent infection is suspected, repeat testing on a new sample collected in 7 to 14 days is recommended. Performed At: [facility] [address] [place], [place] [id number] Jaycob Joy PhD Ph:[phone] Performed By: #### C BC, ADIFF, ANEU, A1C, PSA, CMP, TSHR, GFR, LIPID, FT4 #### [address] [address] .GFRon 04-18-2025 Estimated Glomerular Filtration Rate 72 ml/min/1.73sqm Normal [facility] Comment on above: Result Comment: Stages of Chronic Kidney Disease (CKD) Stage Description eGFR(ml/min/1.73 sq.m.) CKD 1 Normal kidney function or >=90 normal kindney function with possible kidney damage (ex. Proteinuria) CKD 2 Kidney damage with mild loss 60-89 of kidney function CKD 3a Mild to moderate loss of kidney 45-59 function CKD 3b Moderate to severe loss of 30-44 of kindey function CKD 4 Severe loss of kidney function 15-29 CKD 5 Kidney failure <15 Note: (go live 2024) the eGFR calculation was updated to the 2020 CKD-EPI creatinine equation without a race factor to calculate the eGFR results. Performed By: #### C BC, ADIFF, ANEU, A1C, PSA, CMP, TSHR, GFR, LIPID, FT4 #### [address] [address] BMPon 04-18-2025 BUN/Creatinine Ratio 13 ratio Normal 7-27 [facility] Comment on above: Performed By: #### C BC, ADIFF, ANEU, A1C, PSA, CMP, TSHR, GFR, LIPID, FT4 #### [address] [address] Calcium [Mass/Vol] 8.8 mg/dL Normal 8.4-10.2 [facility] Comment on above: Performed By: #### C BC, ADIFF, ANEU, A1C, PSA, CMP, TSHR, GFR, LIPID, FT4 #### [address] [address] Chloride [Moles/Vol] 101 mmol/L Normal 98-107 [facility] Comment on above: Performed By: #### C BC, ADIFF, ANEU, A1C, PSA, CMP, TSHR, GFR, LIPID, FT4 #### [address] [address] CO2 [Moles/Vol] 28 mmol/L Normal 23-31 [facility] Comment on above: Performed By: #### C BC, ADIFF, ANEU, A1C, PSA, CMP, TSHR, GFR, LIPID, FT4 #### [address] [address] Creatinine [Mass/Vol] 1.06 mg/dL Normal 0.67-1.17 [facility] Comment on above: Performed By: #### C BC, ADIFF, ANEU, A1C, PSA, CMP, TSHR, GFR, LIPID, FT4 #### [address] [address] Electrolyte Balance 10.0 mEq/L Normal 4.0-15.0 [facility] Comment on above: Performed By: #### C BC, ADIFF, ANEU, A1C, PSA, CMP, TSHR, GFR, LIPID, FT4 #### [address] [address] Glucose [Mass/Vol] 126 mg/dL High 83-110 [facility] Comment on above: Performed By: #### C BC, ADIFF, ANEU, A1C, PSA, CMP, TSHR, GFR, LIPID, FT4 #### [address] [address] Potassium [Moles/Vol] 3.7 mmol/L Normal 3.5-5.1 [facility] Comment on above: Performed By: #### C BC, ADIFF, ANEU, A1C, PSA, CMP, TSHR, GFR, LIPID, FT4 #### [address] [address] Sodium [Moles/Vol] 139 mmol/L Normal 136-145 [facility] Comment on above: Performed By: #### C BC, ADIFF, ANEU, A1C, PSA, CMP, TSHR, GFR, LIPID, FT4 #### [address] [place], [place] [address] Urea nitrogen [Mass/Vol] 14 mg/dL Normal 7-18 [facility] Comment on above: Performed By: #### C BC, ADIFF, ANEU, A1C, PSA, CMP, TSHR, GFR, LIPID, FT4 #### [address] [place], [place] [address] LABORATORYOrdered By: SYSTEM SYSTEM on 04-18-2025 Calcium [Mass/Vol] 8.8 mg/dL Normal 8.4 - 10. 2 mg/dL AO ADM SS Chloride [Moles/Vol] 101 mmol/L Normal 98 - 10 7 mmol/L AO ADM SS CO2 [Moles/Vol] 28 mmol/L Normal 23 - 31 mmol/L AO ADM SS Creatinine [Mass/Vol] 1.06 mg/dL Normal 0.67 - 1.17 mg/dL AO ADM SS Electrolyte Balance 10.0 mEq/L Normal 4.0 - 15 .0 mEq/L AO ADM SS Estimated Glomerular Filtration Rate 72 ml/min/1.73sqm Invalid Interpretation Code AO Chemistry S Comment on above: Interpretive Data: Stages of Chronic Kidney Disease (CKD) Stage Description eGFR(ml/min/1.73 sq.m.) CKD 1 Normal kidney function or >=90 normal kindney function with possible kidney damage (ex. Proteinuria) CKD 2 Kidney damage with mild loss 60-89 of kidney function CKD 3a Mild to moderate loss of kidney 45-59 function CKD 3b Moderate to severe loss of 30-44 of kindey function CKD 4 Severe loss of kidney function 15-29 CKD 5 Kidney failure <15 Note: (go live 2024) the eGFR calculation was updated to the 2020 CKD-EPI creatinine equation without a race factor to calculate the eGFR results. Glucose [Mass/Vol] 126 mg/dL High 83 - 110 mg/dL AO ADM SS Glucose [Mass/Vol] 117 mg/dL Invalid Interpretation Code AO Chemistry S Comment on above: Interpretive Data: E stimated average glucose (eAG) is a calculated value from Hemoglobin A1C and is labor union business representative of the average blood glucose level in the last 2-3 month period. Normal range: less than 114 mg/dL HbA1c (Bld) [Mass fraction] 5.7 % Normal 4.3 - 6.4 % AO ADM SS Potassium [Moles/Vol] 3.7 mmol/L Normal 3.5 - 5.1 mmol/L AO ADM SS Sodium [Moles/Vol] 139 mmol/L Normal 136 - 145 mmol/L AO ADM SS TSH Qn 2.69 m[IU]/L Normal 0.36 - 3.74 mcIU/mL AO ADM SS Urea nitrogen [Mass/Vol] 14 mg/dL Normal 7 - 18 mg/dL AO ADM SS Urea nitrogen/Creatinine [Mass ratio] 13 ratio Normal 7 - 27 ratio AO ADM SS LABORATORYOrdered By: LABSoft Tissue Regeneration P CONTRIBUTOR_SYSTEM on 04-18-2025 Lyme Total Antibody KATYA (LC) Negative Invalid Interpretation Code Negative AO [facility]outs SS Comment on above: Result Comment: Lyme antibodies not detected. Reflex testing is not indicated. No laboratory evidence of infection with B. burgdorferi (Lyme disease). Negative results may occur in patients recently infected (less than or equal to 14 days) with B. burgdorferi. If recent infection is suspected, repeat testing on a new sample collected in 7 to 14 days is recommended. Performed At: [facility] [id number] Jaycob Joy PhD Ph:[phone] TSHRon 04-18-2025 TSH Qn 2.69 m[IU]/L Normal 0.36-3.74 [facility] Comment on above: Performed By: #### C BC, ADIFF, ANEU, A1C, PSA, CMP, TSHR, GFR, LIPID, FT4 #### [address] [address] CNPNon 04-14-2025 CNPN Normal [facility] HIGH RISK HUMAN PAPILLOMA ALTHEA (HPV), PCR FOR DETECTION AND GENOTYPINGOrdered By: Karely Rodriguez on 04-14-2025 HPV 16 Ag Ql (Unsp spec) Detected Abnormal Not detected [facility] HPV 18 Ag Ql (Unsp spec) Not detected Not detected [facility] HPV 31+33+35+39+45+51+52 +56+58+59+66+68 DNA JENNY+probe Ql (Cvx) Not detected Not detected [facility] Comment on above: High Risk HPV Other Type includes HPV types 31, 33, 35, 39, 45, 51, 52, 56, 58, 59, 66 and 68. Interpretation and review of laboratory results Abnormal [facility] High Risk HPV PCR re sults should be evaluated in the context of clinical history and cytology/pathology results (ie. tumor type and location, p16 immunohistochemical stain, and hrHPV in-situ hybridization studies if available). This test was developed and its performance characteristics determined by [facility]'s [facility] Pathology and Laboratory Medicine [place] ([facility]). It has not been cleared or approved by the FDA. [facility] is regulated under CLIA as qualified to perform high-complexity testing. This test is used for clinical purposes. It should not be regarded as investigational or for research. [facility] CYTOLOGY NON-GYNOrdered By: Carly Sbaa on 04-13-2025 Case Report Medical Cytology Rep ort Case: [id number] Authorizing Provider: Matt Olivo MD Collected: 04/11/2025 02:57 PM Ordering Location: Otolaryngology Received: 04/11/2025 08:26 PM Pathologist: Carly Saba MD Specimen: Neck, Right, right neck node [facility] Work Phone: Clinical History p4atwLYnKHIsaYNlCEYm Nlxhb mFjXDDhpXWzH4WxpuhjXBctHU 3fYI2zaWffpNQerPSnOMVyZjH yz8ajg111rCVtt4kiFWPZfbpq wZj7hCrjK11sj3V4RiejB10ys ELdVCR9RYSgWBOdjXTgHFAlZN S4ZUUxdXZcP1yoTJKsGC2zvus eFJtlRMycLMTulIW7ZUWqbHXd N5FiQUMhFKjjFDAlukt8MtRnU p5ifUFciLlsIMtqGNOhGJJfTQ vwOMFhXfLkKegahU8dBLjmlEv iPx7FPW6ab6BbWJ7iBNEtL6z3 KC3eT0kojLhksNlzBNJmt5Zde Ml6CpWiBY4iGRZrEYPFSMEil1 Xagallq66brAccGFFhs8EfhKd wYXJ9 [facility] Work Phone: Diagnosis Comment v8khjCYiZOSqzMDuPPPo Nlxhb vFxEFVkwFBpY5MwulqvVIfxRA 2yWE9ymNfdjXCytZFsHAPkVfD pg4hoa539yBPvl7pvHYQHvlbf sBn4sVhsE44ll6O1VebkU43jz WMzPLG1NOLuYYGouJBkPADpTW T4XJPksZHvB0dsCFWmLL7flny sQWauVXgfKZGyrDV1JRJkrZNw X6AeFHFfBWacKOMnjcz9RkOiE t7acSGbfPiyNJipSGVdBEIpTJ vkFXWyEjGqYAnwpN9umHSpFCw JPgK0LRW9iX3tJSpnoEgaSpHm rBHvBs3wqPNpVWRwYYU7hCGii yImfHk2jyN6nYmvSCLtMLAgqK 9ydGVkIHNlcGFyYXRlbHkuXHB hcn0= [facility] Work Phone: Disclaimer q2essQYcBFDif1gxHKTm bGFuZ zEwMzNcZnRuYmpcdWMxIHtccn CaUOnvdRsdDMRgHRXlv4bxl4s atLHdUCFad1sbu0TqrOPleQRk XTmpsHTpegPcrg00yQZ9gA12L H4xIOJhRmQ8CPHjcdR2Vxa9FH OkNAZviKDeX960b5dzh4jliuY agJN1KJReFROwD1AdPB4bCBVz uENhM32xjSGgKFX1ZPAqPAQel QEbCOAgPZI3LEGguVQkI0gpLP NqVP6vijfoDJsuTJxxJAXkaHE 7BOSzqUSiN2JiGFHrEQmwMJCw mzg8QhGxZi3bcCPonGdePUjyI 7favZ8zGkP7TLvcB7hkbA9fZP p4ORuoIETskLY3ycF7CVZspPS rR9OndB9iXLHfFO1ebto8h5dz SSP0HQboRNUhZhR3fcZ1WMEfx GFyZFxwbGFpblxiXGZzMTZcY2 LfIOxrCl8cMNHymyodEVH6IFt ilMOkSPGll8IhADzKYMmgZDaj J1llbE9volrtgCRtWWKxZWFjO NFIFIFiu3BeNN1zTRVybUVaKH F7WFQah4DaM6Pic2BbiW9vaV8 tyIllbE7oiEDmcSTwxDbwqG5n fT0nOja4h5Uvf3VtsvZrAXUkS MVniATsuW5mND4xNwLuaq2zsS I3DJn0AsSxCYn2ERWvc08hfKS mzMZgyPI7TSFkDJVhPRYzpTOi bWluZWQgYnkgdGhlIHBlcmZvc m7vvizpaXJfv0BybT9ltPC3lV VysC9cJ3xwfvPxKN4dFKYhrB4 rBkjhQODiGyTfhWQQSbVCv95g pWPnBJTnyQuvoD5voBZroaSqS XOuq3UmnX2fmVZUUKRvY9zeOY WXGRJtnvMnWN78HMoAGKajRXX jzQS3rjWBh0TktXBlkXfmCFnl g26nE2AxKBZacDTQh0SqrMKnw HcuTjcxktnwWWYIVWI5a48rOU 8hsTl0XNerSF4moyP6SOyve2I tdRSrMWUVyrRaAG3pRzp1WRMe JKZlpHYmcQRQUK80RWIpMA9oc zWnnxPNSUJkjGznSr5iuUawTD 9xhJn3PVmoVI8bJGShrH8mRTq pw8UukZZzYWYyfhKzNQ2goh9l esMso26iaED2BM07LMjkuPglR 2cIZOFzCQR1nUSqfIBopHAdGW 7eYPFaczFwh1MkEE5oAAIoZKI uLFQex7WvKY2yiBAga6UmhKO2 SHSlICRiGRIcRCQkLMVsi7RjF RMynw35MNQhBhivqOzqINLJWZ 4dLjBdEFwRJOheBPWfT6ZkEXP nCMA3jpGkptNZWShIFFLyAWV5 UFvvUishREP8lhNiFFHks9HlK EnkP9vsT12zrCfsvCc1bYI5ZK Q9iW8fEqPZaDDqNHV3ITO8jrI uqcTmwIJxGMHar2GyB0gwfxsm UDlprRQogM8sKSAiWQTdRGBqB ONkb5MeQHAyr4PnJoXnkmJrQP PsGGWoNHUymR63GAY8aDchxOp uwuMtIA8xOPBkocXlOQBwWDJm fO8xOG3cdWDtybFsNI7zSR9kS 1J3cEWgIAOpjuJqj2wtBEH3IF luIGFwcHJvcHJpYXRlbHkuXHB hcn19 [facility] Work Phone: FINAL DIAGNOSIS s0ebvBUuWCKqbMDyDUIh Nlxhb tOsOXXubSOuE6WtzaomWIbhJW 1aWW1yeSidxRZboOYcEZJaRwW ri4hvj898xMAex4mqQBTTiohu wBa6uBdlZ59sm0D1OaifZ2ymJ WQwXGdyZWVuMFxibHVlMDtccm JnSCtjjzSjgiNkDkj6OSY6DMg 9XHBhcGVydzEyMjQwXHBhcGVy hEI3QNPaNK7wmjooEjKgRQ5ce tkcHmQiIR2tkyn5KjExEF2flk jfZbIySOlhCVWudvg6FwEqTy6 bjAWmiTmvLNxgA0oadJ3bWdW1 JOyjB7wvyK2pAFp7ZCphUXCmh CD5knbxHLfhLBRdyuH6zhizWO kaAJYfqXU5oxecMIepYAGkChN 4bjcyMFxwYXJkXHBsYWluXGJc YmEhUrkoIwPzSVWhKS0jE8uzO HLzI2v4KNILUbZoBO3jbzgopA ZslbAoljDky2UxMHPhhfQcVOQ nIMRbIEUkCH4rjPQlvjUeLy9z DP3vgQwrnfTzaTRjSHjrbv4jo GFyICAgICAgICAgICBTcXVhbW 99roKrZHohELJfndUymb3cDIW dw9WuDUGpuA1jvcQxLikgNVWc BEEhSBJayVPhZDLsDAw9JZOwQ CAgICAgXHBhclxwYXJcYjAgVG pdOSLqqCatf3gkImFiZDirHHE fa7PiytY9VVFqDXWrc29nePV6 WONlf4f2rOH4cBafONSax7O3B WOangWIXIq6IXOcF2YvhSASfF 6jtcakKVjmt0xnhEYWiMusZFp 7JJDwbBTfJSZdF1TuCSEmcgcc MFxjZjBccGFyfQ== [facility] Work Phone: Gross Description d6dccAIwYJHiqSGWDDAa MDNcY C0hzXiakAh7hDqtYMOvwgP9gP BqRLtnh0kbFHI1d9xrwiCYEte iNXPpHS8tNRalJBJuUD9uViNk XGRlZmYxXHBhcGVydzEyMjQwX EGkgLFmjNP4GERrHL8bzbppMT goVNgsSONdfkB1VFQepOKgK6Y pSSJqAQ8whotnJVX8KLMHZzqw Xq6adHIrgCbfJsYjMcXkPHMrG IHwNREwg2rzddHSsqqkcQm3oD 1LPQDeX3AmAG3Vt6unJFRemXE rCXP8FBdcn8suPDzbVAV9BDKp IMFbSWBbSK4JZzStDBm4YnD8Y FL3KmC8FEx8KTJJDGBnRWBnQq Z5XfCvOCi5DAygXFeqoOCrIVY rHEZvYXZxNZjwffG2y8yoNVMx cILlZBW9SGnxi6keUYofMVN2I DEzXqBcNPMrOF6TXhFcIOu9Mo P5XFS2DiR6RQu0OWJMNjSdDbH jGtX6ZfR8ZvMhDVx8COk5WTbK EvCdUvN0JiO7RtR0OHI4APIeV CBcXHQgMiBcXHNzIDMgXFxmbC YtGZ9zlMfmXSXuAX1EOTPtMFq tYXSkZyOzGN3bIqPmhshoNxsd rVKnoCCrK1hjZyNuWnivDGTwO QpccGFyZCANClxwbGFpblxsdH EwcBitpcCwIVBlyYGSAMA8SH7 jMSANClxsdHJwYXIgDQozMCBj WmHabHSyvKQjhSoeVknfaRW9H NzyTiupgB8tbYCSDZURFfrIEa sndbFtJF6HVEMYIgBFJE58TKJ zVaB7wBE4AB12FBGuJZOozVHg JDszL387H4jvEMK4SQIzXFhbj 6kdGNXoOEqqi9DhOMoKZGYVJI 9DCN7moPO2PYhASAZTAOorNGZ 4MVX9SVyynXgjKtcqkzTenGFx IeKZbX6hdNxseC7cmOFkP9xzC uAzNtKoSHCyk7JhB4U2DUAtSO eum3agNZLxMGhdq0UfVZxXUDK AHI6IQL5tlDJ6HMuHHIQDW3lG oQL5NAdqKCecrVW2y2qvaNRtb 6l0YTcqPTX0aITucui0ONJhWG bkp4vgWASjRZxah1KzRWcYNXP DLK6ZRN9qrXT1DIjKUWHTOGyl JZX3QRZ0CbqjtOumIsqaeaPfc WOgSzQIkL1wzUgmxO2vwRUbS6 vqDiZjGmUzJWJfb0KhN4Z2MZV tRFqyj4ahKGKjINwwg4DrNTmL ZXWILC4FBQ7aoCC5TZzYXQZZS 0tDeCZ5YKlrGWdwwPD6v6wlaZ Mjb7e0OQclVVV0rCA3sQ0FhBF 8LDSdOZvma7gcKKOlYThex9Sv GAdKYVNUHF3REC1oiSN9UCySX ZXCMNikKPV1DKx1W5awzVtoMl imfxUsePUwMbHNpB7xzPeajD3 mqMVyP4tlUaSsAqHqQFWxl8Ft M4V6ZSApFBunc0fuHUObEXepm 7DqKFiSEYVNKD2DWJ3xbTA4FJ tAJENFG8zDwIZ1AHgkMIs0eSO 4d4khjSGdx2h7OOxsETE4dHmp wFwgg9CviaOkcTHkaOiyhJLth 8fdtEPlCJpiTbkwuQFsttP5GD eSHYHFIWtWSbEaHN7jUBvDZ6J ZYjJ3DQJcTpGgtWF7EM44ICXc FOLfoOJsPQmcC591TKOqVTmyX Lr1etDjDBLmWeXrJyWiCJKhs9 TkR8L8CNRnTSvlc1kxNZYpOAf mu4BlZDwYGQYYKK9YQF9wpDV8 DBgYMNVSD8rGvQM0CBN3G4b1m SY2u2igrXBgo9b6MRapZBG2dJ SfhG7IvhSiHFFxKVHUOWioQVM um0Qpa7rtsLDcVLcgZmeezIMe reT9WSlJEXIOGLdKBkUbGY6aP PvOR6LHMvL1BBX0TCb8rEF0TT 65JJCsTEZfqEZkRHjiO686LBA cBQrcGMm1svQyEDDdLyNnWNWw PFNrusBnOHrdib10XYB2n7xrk LGmEZtjSoojnTGqteB0PSuRFJ IOWNeGKnGtCS7zXRfGX8LCTAx IVfinGDU9ZBY7Qar9dLobGljp qjKybJCxSgUWrD0mypApEFBcu 1BaL2Hal0dazGNqFDntXyxhjM JyqfJ7DCcIWDTTJIhEAlYgBW2 sHHiDOXEIDQuHDzf8iOnmSwud fgEnzWCgVfDKwE27p0zpaOXiG QytIaeccCQfkcE7KWxCAGBMZF oZGnKqZE3jMTpYHOSTZgM4U81 1MANtDFKjvVGkIRgfB616KIDq WJjgBAr8ayQyCXAfj2FzJ2VzI fJkReLsn03bQWBrLsymFviotP R3MTpoIrzcvI9xjHALSOHZFaa FCmqzevHyPZ1ZJFWKOL7DfUI6 XEnuNUw9jFW3q6hvoCLar7t6X ImzTBM4dAkbeAKkxsqwcXVizA xmczIyXHBhciANClxzYTMwXGV shEUUs8XmXLZSAdv4FU7HWPSb RWQquPBWRCV5QA0vPCelGDBpJ 1KfD2VyqdN9y1tnjGnpb3ZbhB MnHW0idWRhCW0ZJOOyqiMcPIt saRsrmD5dFBk4 [facility] Work Phone: Performing Lab z3kzaRDbJJRcf4hpUBOb bGFuZ zEwMzNcZnRuYmpcdWMxIHtccn RmMVxhbnNpXGRlZmxhbmcxMDM dPAP4vqTvWWUcAJR9JVF1NoCm YIKgXgWvGLZ7SSEfb9vlr5Tno PXoeNNtKDxntZMzmzGbwz56gN T9zS77TS6jFNAzDyD1VEOjkoJ 3Tac5YYGlZAIcoESxS546f5op o5rbbvDcyFN3zWhcCUYbdlxlY sY8YQkiMFXvdlzfWFm2CDouLD WweKM9NQGffURbH9PwEVCpAV1 potk2AIK8KVseVCSxHkT5IBNg yVKwWCNrhHndUTdbz288CPW2A gNjMGDdy4W4hqQmCeKlGSJeiU X7fsU3GYLcNL9iaxrpc4mrLEg iDMqaUKRdluS8hyC7REVkpEXz M3HveP8xFMQwMM1bnktss2xqL RA0RZzlORMjZMOpRVyxNMFxGe IjKOJtrD7rX7SaZZSeiWHenrB kdLfpB8z4r3WhN1kvs8piZ1lp qBDeQ1OiJQ0fwzyqjCUdPp9lj PCfAZG5PpYQqCQ4MUeazgTeW2 gfzikzHI6zyZ8eM8OwrJXuTLu yi0VjcGRjSJmjOh8qBJCipirq DWh2XQEqEVQvvBucOOE0QM47Y SwgRGVzayBMMjEsIENsZXZlbG XuHHXSKBS2RJA4QDXgA1nPUBu wPvRRQAH1BoM6DWjoIAR4nYsi xjDoCEngzDaeAPJqSZBoHQ9rr KrthAl2pQswXPSpicE7zQYxBG xga1cjHHJ1a0fbgjwmEQDbMKg yLy2goQBadQpwFcNhLMQfJJj6 hN58ORTykO3ozXWwMVt5LHVqo GLzgiUyViLsGMHpnYBdrVE5JH TrDD5mglwjOMzqPWwxDKXjntA 0XTMdzRGvH5PnXWNhPE5afjgw TJU6BAraZKInIUQ8HqFrLBZgg 0Pizgf9LxNuqJq0k5usEYSzWQ CnqQgir6flTNP0QJNzvXSuI9d gvZ5eMCJtER5skpuyb1olYPiu XOjsEKBpnVI6acB3EADorUUtL 2JluY7qABPeYZKbvmRgvChxpQ 3wFbSbCRPNvBDjvj6unStmSPz doFZtzWRkiAL5fQ7fZJFtcbZo fa6yKDJfwLguMnCzhjTpSQkaA C4bzLh4JBlpDDRgc3SikL2etC avWNjpUZAxPT0xXIijPMG6SJ3 6GChrX7xudjJeLS3yQC5GCUO1 RDHqHMXoA6mRRTIsCaQXREF4F TT7DTzmXYSbIGGtnuMCBQTjhz N6m0P0PLCbjzOnkM8qJzPHDK3 lcyBMYXBpbnNraSwgTURccGFy fX0= [facility] Work Phone: [facility] Work Phone: CNOVon 04-11-2025 CNOV Normal [facility] CYTOLOGY NON-GYNon 5 AP DISCLAIMER Normal [facility] Comment on above: Order Comment: Speci men Type: SPECIMEN OBTAINED BY ASPIRATIONOrdering Facility: [facility] Address: [address] [place], [place] [address] Result Comment: Debra Phillips Test (LDT) Disclaimer:Performance characteristics of immunohistochemical, immunofluorescent, and chromogenic in-situ hybridization tests have been determined by the performing laboratory within [facility] Aleta Montalvo Pathology and Laboratory Medicine Department ([facility], [facility], [facility], [facility], [facility], [facility], or [facility]) in a manner consistent with CLIA requirements. One or more of these tests may not have been cleared or approved by the FDA. RT-PLM is regulated under CLIA as qualified to perform high-complexity testing. These tests are used for clinical purposes. These should not be regarded as investigational or for research. Positive and negative controls stain appropriately. Performed By: #### C YTONON ####[facility]OSHUA LABORATORYCLIA [id number] [address] LABCLIA [id number] [address] [place] CASE REPORT Normal [facility] Comment on above: Order Comment: Speci men Type: SPECIMEN OBTAINED BY ASPIRATIONOrdering Facility: [facility] Address: [address] [place] [address] Result Comment: [facility] Cytology Report Case: [id number] Provider: Matt Olivo MD Collected: 04/11/2025 02:57 PMOrdering Location: Otolaryngology Received: 04/11/2025 08:26 PMPathologist: Carly Saba MDSpecimen: Neck, Right, right neck node Performed By: #### C YTONON ####JOSHUA LABORATORYIA [id number] [address] LABCLIA [id number] [address] OF [place] CLINICAL HISTORY 79 y/o with BOT mass and right neck lymphadenopathy. need HPV testing on the biopsy Normal [facility] Comment on above: Order Comment: Speci men Type: SPECIMEN OBTAINED BY ASPIRATIONOrdering Facility: [facility] Address: [address] [place] [address] Performed By: #### C YTONON ####JOSHUA LABORATORYCLIA [id number] [address] LABCLIA [id number] [address] [place] [address] [facility] DIAGNOSIS COMMENT High-risk HPV testin g will be performed and the results will be reported separately. Normal [facility] Comment on above: Order Comment: Speci men Type: SPECIMEN OBTAINED BY ASPIRATIONOrdering Facility: [facility] Address: [address] [place] [address] Performed By: #### C YTONON ####[facility] LABORATORYCLIA [id number] [place] [id number] [facility] LABCLIA [id number] [address], [facility] FINAL DIAGNOSIS Normal [facility] Comment on above: Order Comment: Speci men Type: SPECIMEN OBTAINED BY ASPIRATIONOrdering Facility: [facility] Address: [address] [place] [address] Result Comment: A - Neck, Right, FNA - right neck node Positive for malignant cells. Squamous cell carcinoma (see comment).The following cell blocks were associated with this case:A1 Cell Block, Alcohol Fixed at 1024 EDT Performed By: #### C YTONON ####[facility] LABORATORYCLIA [id number] [address] LABCLIA [id number] [place] [id number] [facility] FINAL PERFORMING LAB Normal [facility] Comment on above: Order Comment: Speci men Type: SPECIMEN OBTAINED BY ASPIRATIONOrdering Facility: [facility] Address: [address] [place], [place] [address] Result Comment: Tech nical component, change house attendant screening performed at: [facility], [address] [facility], [facility] [address] [place] [address] [place] [address] CLIA: [id number] interpretation performed at: [facility], [address] [facility] [address] CLIA# [id number] Director: Con Mendoza MD Performed By: #### C YTONON ####JOSHUA LABORATORYCLIA [id number] [address] LABCLIA [id number] [place] [address] [place] GROSS DESCRIPTION A. Neck, Right Normal [facility] Comment on above: Order Comment: Speci men Type: SPECIMEN OBTAINED BY ASPIRATIONOrdering Facility: [facility] Address: [address] [place] [address] Result Comment: 30 c c clear pink CytoLyt with scant particles. ThinPrep and Cell Block prepared and 4 smears. Performed By: #### C YTONON ####JOSHUA LABORATORYIA [id number] [address] LABIA [id number] [place] [address] [place] HIGH RISK HUMAN PAPILLOMA ALTHEA (HPV), PCR FOR DETECTION AND GENOTYPINGon 04-11-2025 HPV 16 Ag Ql (Unsp spec) Detected Abnormal Not detected [facility] Comment on above: Order Comment: Speci men Type: SPECIMEN OBTAINED BY ASPIRATIONOrdering Facility: [facility] Address: [address] [place] [address] Performed By: #### H PVHRT ####[facility] LABIA [id number] [place] [address] [place] HPV 18 Ag Ql (Unsp spec) Not detected Normal Not detected [facility] Comment on above: Order Comment: Speci men Type: SPECIMEN OBTAINED BY ASPIRATIONOrdering Facility: [facility] Address: [address] [place] [address] Performed By: #### H PVHRT ####[facility] LABIA [id number] [place] [address] [place] HPV 31+33+35+39+45+51+52 +56+58+59+66+68 DNA JENNY+probe Ql (Cvx) Not detected Normal Not detected [facility] Comment on above: Order Comment: Speci men Type: SPECIMEN OBTAINED BY ASPIRATIONOrdering Facility: [facility] Address: [address] [place] [address] Result Comment: High Risk HPV Other Type includes HPV types 31, 33, 35, 39, 45, 51, 52, 56, 58, 59, 66 and 68. Performed By: #### H PVHRT ####[facility] LABCLIA [id number] [place] [address] [place] US NECK (POC) HNI USE ONLYon 04-11-2025 [facility] Radiology Study observation (narrative) [facility] XR CHEST 1 VIEWon 03-12-2025 XR CHEST 1 VIEW ORIGINAL EXAMINATION: ONE XRAY VIEW OF THE CHEST03/12/2025 11:05 pm COMPARISON: CT abdomen pelvis 03/21/2024 HISTORY: ORDERING SYSTEM PROVIDED HISTORY: Reason for Exam: cough, SOB FINDINGS: The cardiomediastinal contours are within normal limits. Mild bilateral interstitial prominence is noted. Stable appearance of the right costophrenic angle compared to prior, likely scarring. Linear opacities at the left lung base likely represents subsegmental atelectasis. No visible pneumothorax. No acute osseous abnormality. Multiple chronic appearing right-sided rib fractures are present. Right scapular deformity could indicate chronic fracture. Degenerative changes of the visualized shoulders and spine. IMPRESSION: Mild bilateral interstitial prominence could represent pulmonary edema versus an infectious/inflammatory process. I have reviewed the resident's preliminary report and agree with findings and impression. Interpreted by: Marco Mchugh Preliminary Report By: Clifton Martin Electronically signed By Marco Mchugh Dictated Date: 03/12/2025 11:23:55 PM Prelim Date: 03/12/2025 11:29:09 PM Sign Date: 03/12/2025 11:31:57 PM Ordering Provider: JULIUS GODINEZ [facility] CNOVon 02-27-2025 CNOV Normal [facility] CNOVSPon 02-27-2025 CNOVSP Normal [facility] CNPNon 02-27-2025 CNPN Normal [facility] LABORATORYOrdered By: Savannah Urbina on 02-24-2025 Additional comments B: oatmeal with milk L: not eating or once a week eating at [employer] chicken and broccoli D not eating education on need for eating small meals at least 3 times day encouraged protein intake discussed use of cottage cheese, & divehi yogurt [facility] Work Phone: CNPNon [facility] DIANA THURSTON ([id number]) 1945 M Date Time Provider Department 02/14/25 [facility] During your visit today, we recorded the following information about you: Meek Graham MA 02/14/2025 4:32 PM Signed Called and spoke with Kayy, Mr Thurston's daughter. Per Dr Desouza, I told her the PET scan did not show any surprises. It lite up in the left and right neck areas but not anywhere else. The next step is for Mr Thurston to decide what treatment he would like to pursue. Kayy said she will let him know the results. When they had spoken previously it sounded like he had wanted to go for the XRT/chemo and not surgery. She will talk with him tonight and either her or Mr Thurston will call us tomorrow with what he has decided. MAGGY Brooks Nancy 02/15/2025 2:17 PM Signed February 15, 2025 2:16 PM Patient does wants treatment done in [place] at [facility] LOCATION Cortney Moreno MD 02/15/2025 2:33 PM Signed Referrals ordered. 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 - ROTATE INJECTION SITES - omeprazole (PRILOSEC) 40 mg capsule Take 1 capsule by mouth once daily. - hydroCHLOROthiazide 25 mg tablet Take 25 mg by mouth every morning. - dexAMETHasone 0.1 % ophthalmic solution Two drops in affected ear twice a day - ciprofloxacin HCl (CILOXAN) 0.3 % ophthalmic solution 2 drops two times a day. Affected ear - colchicine 0.6 mg tablet Take 1 tablet by mouth two times a day. - pantoprazole DR (PROTONIX) 20 mg tablet Take 1 tablet by mouth once daily for 10 days. - pravastatin (PRAVACHOL) 40 mg tablet Take 40 mg by mouth daily at bedtime. - losartan (COZAAR) 50 mg tablet Take 50 mg by mouth two times a day. 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.79] 04/27/2024 Renal cyst, acquired, left [N28.1] 04/27/2024 Duodenal diverticulum [K57.10] 04/27/2024 Benign prostatic hyperplasia with nocturia [N40*04/27/2024 Chronic cough [R05.3] 04/27/2024 Obesity, Class I, BMI 30-34.9 [E66.811] 04/28/2024 Cough with hemoptysis [R04.2] 04/28/2024 Elevated LFTs [R79.89] 04/28/2024 Common bile duct dilation [K83.8] 04/28/2024 Diarrhea [R19.7] 04/28/2024 Type 2 diabetes mellitus with hyperlipidemia (H*01/18/2025 Encounter Status:Closed by MEEK GRAHAM on 02/14/25 Normal [facility] NM PET/CT SKULL-THIGH INITon 02-14-2025 NM PET/CT SKULL-THIGH INIT * * *Final Report* * * DATE OF EXAM: Feb 14 2025 8:36AM MDP 0060 - NM PET/CT SKULL-THIGH INIT / PROCEDURE REASON: multiple diagnoses * * * * Physician Interpretation * * * * EXAMINATION: BODY FDG PET-CT CLINICAL HISTORY: Tongue base cancer EXAM CATEGORY: Initial treatment strategy. TECHNIQUE: Radiopharmaceutical was administered intravenously followed by PET imaging from the skull vertex to thighs. Free breathing, low dose CT of the same body region was acquired without IV contrast for attenuation correction and anatomic localization. Unenhanced imaging is limited for the evaluation of some pathology and the acquired CT was not designed to produce diagnostic CT scan quality. Physiologic/non-pathologi c uptake in some body regions could confound or obscure some pathology. * CT Dose-Length Product (DLP): 583 mGy*cm * CT Dose Reduction Employed: Yes * Blood glucose: 107 mg/dL * Injection site: Right Forearm-Antecubital * Injected activity: 14.8 mCi * Uptake Time: 57 minutes * Radiopharmaceutical: I89-Ttbxdhfbcdzqywiayu (FDG) CORRELATION: CT neck 02/02/2025 RESULT: REFERENCES: FDG uptake is used as a surrogate marker for glucose metabolism. All reported standardized uptake values represent maximum SUV (SUVmax) per body weight, unless otherwise specified. SUV reference values, as follows: * Blood Pool (Descending Aorta): SUVmax 3 * Background Liver: SUVmax 4.1; SUVmean 2.6 Localizer Images: No additional findings. HEAD AND NECK: Head: Heterogeneous hypermetabolic infiltrative left parotid region mass (max SUV 5.6), measures about 4.7 x 5.2 cm. Possible adjacent left mastoid osseous changes/ invasion. Surgical changes in the left frontal skull with heterogeneous activity in the adjacent cortex. Evaluation limited by streak artifacts. Diffuse paraspinal uptake likely physiologic. Aerodigestive Tract: Hypermetabolic focus with soft tissue thickening/asymmetry in the right tongue base/vallecular region (Max SUV 18.4). The metabolic activity extends to the contralateral side. Lymph Nodes: Hypermetabolic right level 2A lymph node (Max SUV 8.7) measures 1.5 x 1.6 cm Neck Soft Tissues: No radiotracer avid thyroid nodule. CHEST: Lungs and Pleura: No radiotracer avid mass, nodule, or consolidation. No pleural effusion. Lymph Nodes: No radiotracer avid lymphadenopathy. Few mild activity hilar and mediastinal lymph nodes are likely reactive. Mediastinum: No radiotracer avid mass. Cardiovascular: Blood pool activity. No pericardial effusion. Normal heart size. Chest Wall: No radiotracer avid soft tissue lesion. Nonavid right posterior lateral rib fracture deformities. ABDOMEN AND PELVIS: Hepatobiliary: No radiotracer avid lesion. No measurable mass. Pneumobilia. Biliary stent. Diffuse uptake surrounding the stent is likely inflammatory. Spleen: No radiotracer avid lesion. No splenomegaly. Pancreas: No radiotracer avid lesion. Adrenals: No radiotracer avid nodule. Nonavid left adrenal nodule. Urinary Tract: Physiologic radiotracer excretion in the renal collecting systems and urinary bladder. No hydronephrosis. GI Tract: No radiotracer avid lesion. No bowel dilation. Peritoneum: No radiotracer avid lesion. No ascites. Lymph Nodes: No radiotracer avid lymphadenopathy. Vasculature: Blood pool activity. Pelvic Organs: No radiotracer avid lesion. MUSCULOSKELETAL: Bones: No radiotracer avid lesion. No lytic or sclerotic lesion. Soft Tissues: No radiotracer avid lesion. IMPRESSION PRIMARY: Hypermetabolic focus right tongue base/vallecular region compatible with neoplasm. NAS STATUS: Hypermetabolic right level IIa cervical lymph node likely metastatic lymph node METASTASES: No metabolically active distant metastases. OTHER FINDINGS: Hypermetabolic left parotid region mass Optical Glass Sawyer: RUBY Transcribe Date/Time: Feb 14 2025 2:10P Dictated by : AMY PALMA MD This examination was interpreted and the report reviewed and electronically signed by: AMY PALMA MD on Feb 14 2025 2:30PM EST [id number] [facility] 02-10-2025 [facility] Telephone (OTFGFL) ----- DIANA THURSTON ([id number]) 1945 M Date Time Provider Department 02/10/25 [facility] During your visit today, we recorded the following information about you: Meek Graham MA 02/10/2025 6:23 PM Signed Called and spoke with Kayy, Mr Thurston's daughter. 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 XRT/chemo can treat this area. The left parotid FNA shows basaloid neoplasm, favor salivary gland origin. If Mr Thurston wants to have surgery for this then it would be done at [facility]. If no surgery XRT will help slow down the cancer. Dr Desouza recommends getting a PET scan, whether he goes for treatment or not. Kayy stated she understands and would like to proceed with getting the PET scan. She will talk with her Dad over the weekend and give us a call next week with what he states. 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 - ROTATE INJECTION SITES - omeprazole (PRILOSEC) 40 mg capsule Take 1 capsule by mouth once daily. - hydroCHLOROthiazide 25 mg tablet Take 25 mg by mouth every morning. - dexAMETHasone 0.1 % ophthalmic solution Two drops in affected ear twice a day - ciprofloxacin HCl (CILOXAN) 0.3 % ophthalmic solution 2 drops two times a day. Affected ear - colchicine 0.6 mg tablet Take 1 tablet by mouth two times a day. - pantoprazole DR (PROTONIX) 20 mg tablet Take 1 tablet by mouth once daily for 10 days. - pravastatin (PRAVACHOL) 40 mg tablet Take 40 mg by mouth daily at bedtime. - losartan (COZAAR) 50 mg tablet Take 50 mg by mouth two times a day. 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] 04/27/2024 Benign prostatic hyperplasia with nocturia [N40*04/27/2024 Chronic cough [R05.3] 04/27/2024 Obesity, Class I, BMI 30-34.9 [E66.811] 04/28/2024 Cough with hemoptysis [R04.2] 04/28/2024 Elevated LFTs [R79.89] 04/28/2024 Common bile duct dilation [K83.8] 04/28/2024 Diarrhea [R19.7] 04/28/2024 Type 2 diabetes mellitus with hyperlipidemia (H*01/18/2025 Encounter Status:Closed by NISHANT GARCIA on 02/13/25 Normal [facility] No Panel InformationOrdered By: Magdalena Obregon on 02-10-2025 Case Report Medical Cytology Rep ort Case: [id number] Authorizing Provider: Cortney Desouza MD Collected: 02/07/2025 02:45 PM Ordering Location: [facility] Received: 02/07/2025 08:27 PM General Ear, Nose, and Throat (ENT) Pathologist: Magdalena Obregon MD Specimens: A) - Parotid Gland, Left B) - Lymph Node (Specify Site in Comments), Right neck [facility] Work Phone: Clinical History x4cyjVLcRXOdcLGoYWLp NVxhb pYiLPSoiIYpU8EinxkyACfpGK 4oVE8bpVdccMEftZPeREUiJnG ju5kvc774bAKpe7gqUSPJebrz mZt9qJylI44qr2E4JrggB76ev PWoYOK7ELAfERYhsRIbXBMiEP O6FJIsiKFgS5bjTBXiSW7uqru rPPonUQboSCRczDB8SLWnqMDw O4AkADNhUYjuDBJwdcz7GeHvA s7jbSTizUfpAGxdCYUkOTHhMI luXGZzMjAgTGVmdCBwYXJvdGl mRX7ty4CzEWBnwZMbN6gdTgwv qF7zbFa2gzE2oO5sOJVrs31kn OE7QB40ZDlcgStxU2PoX0QnSC AdvqCHEWUqZI8iKNSicpr5BUM qSX3bKAEyr6y4eMBcuVoytNEd CGQyDR3kbOOvjGXayTRhdIHci Q== [facility] Work Phone: Diagnosis Comment m1iesGMqIRShkVIyGSMb NVxhb hEmLKLklGCaB6FxwoamTExnTS 1eLF1gaQdvzXIyfYFbRRSqCnX hj3tih017iTEas7iaRSOIfikw mAf5pQpaO84oz2T1WojoR71gc IYeZUE9AVKaRTZgxFDmEKBkZC P2SIHprTSpN0xaTWHiOQ9ridy mGHnbHZmcLRAaaAK7VCIymNXb P9LcCWJrCGweEIAlnck9YmTxH c6xpOQtiDtnUNsfCFRnFXWzIB laAEErCjWaZU2sMNxtTAIsxPk 2RGR4NSaxAL6aUGEmwVrkZWTq BKTun9ppPAAyUiToSSxuxZXfl uMmgGucv53gt9l1iIGvU4SblQ CrmZYhrIhjm89rWESfJZ9vKOJ haT0yq3phTECvCJZdBCZliSQl dIOgiDYxkSKeagpdIZTfg1BwU QSiWVC2dUAoDVCkw2DgUJ07OK 8muRLnZM5uDXali7HxqNU9usl 4NZ8oyILibPKwKyECjY46kz4k gKP1m3IzGF3fP1AsWMU5IKnik pYwOJGfp5MmZORou99nsHskEU ApiAxjDhvpP8bbp3gaokK0hIE ovwYqnSoht5CbWkLxIKjjpxOm qdMioF6yoMUujeWiZl7pMKTTT cwzCZVmICIOR8wnZOSoi9Enxc ksIGFuZCBTTUEsIGFuZCBuZWd qeNn0XOKgs4QoT5SkTGwfCEDh ZPQWALRyjhWycQUpmk6lRLjlR EBwuASnlM1mzT0mfZbdvg58bQ OfMLelzGduXAAipq2xTLUke1R dwKVwbaxfT1spfqPesiLdbTsp c34iXSCmGCN5lYIqYXmlKqVgR Z40rVRbKWHlXXgma7BfclP8m3 JhNYOyobYbbUGmCWApd0LrDPR ufQxqDQIapk7lZH7zBKSzx9Tu khOjun4yQJfhGNHzdt2xASRme DU6kEYoY9SmP5clg15xTHBofW 5rpVy0oMVebHMwFDAdrpOlil8 sKIPnjeCtd4TzTXLyWfBeIBgj rQCfl1XdvVAwjrshO1muxvZzn rNzmTvuk86mOjBIbGUulpMud7 PuyB2sp7yuZ7OnyFnyGMfwMhX fLP87HXEfUZ1isRqeESZlrJMw c2JuUMGliGhxH9WsC7fkq32kL LApLQXluzWobM6rcRHbtOXPVy xwYXJccGFyIEIuIFRoZSBzbWV mjvJil0ofttYcMFTrZKAtwFzs YR97uInatc9rXPcqwfC0zW5pa yikIrJnlCTgaQ08vgWrMXtvLI PporAevj4pMI5rAFQ0ZQGiXEe vrHNmd89rtYPrphXxLW23XS0k MMTyJRUge0SbhpE3RQEqzLHgt pM8FMCxBSNuNVPciCMoteemw0 DoqHZ2ETBoPLabFZXdcC7WzxB wIHNsaWRlIGFuZCBjZWxsIGJs t3OkJCFcooFqB4DhdOAzPGGmB MHuPUPuDq5uFMcqwZ2kzQGwrP TmAZ40CY9xrYXvcEWsLPjgSUA wGOEitpKyiK7ffJdxRALrKXko Sf6kJWTnOVr3rK1dHErdeZKpf ExrWxqvr3VdbWHrrmSMLVErwF ZcqHkpFm8gK1juhqnkTPcuM86 olnGlNUEwn37rqCKwm6SdT1Lx dGVkLlxwYXJccGFyIFRoaXMgY 2PeESV2DCLvsvR4rYT4LRCfhY 8dZ77fd4ByhLS9lI4yCCodxNh fMJQlQaCLr177wQQlnlWqQN70 lAGdAOIdJUTebDgaOTO6oO7zl 2z2HCUotmPoqkT7bbUfd12tCD UblrXcMXC5uH8uQRbiQTNsu0g 6jIFpc3CjICPuHYekb4Gjju4c cEMtVKXmqsKBkqJ2LBbnZPB5r N5aOD2zRPDkFQChpHCbJLC3sM Eyp2Zeq39xeMG1vCLwxMQrq5R 9dXX2yR8fODhOB4syMWigCQDF DIffW3JbKMblRHHIWGdkrITfV ODlw6x5wNClVCLyZDAeJAqiaS s3HRSnt271zu5cozTobQBbwdZ qaQKcb5FjbZB0GXm7ThTCcqFn w8PmcH2wOKTtUzC6gQApHLZ8Y LM5dsNgNOEkUA3rxBLeKPZgXM EayPyvRTNnYUOcv3KtyQwaCCK rNDZodLAxUBM9sPQfc5ItpBl1 oYXfQC1rBQd1mlAppAzdrENmu UK0sLhfuVZ3MYltxcSfs1MsZg UlraHqc1BmDjevr8uxTUKya8L isAlgncMvCMRmHD78WNOtzURj FQPfi37rFOGrDFP9CET4QACeq 7TnfELms6xtmNzjUMJaZOogsJ SagAMviCVlTHsqcVtzX4R0gJh imlSmklRsiX2tyDakVJBkpuCc vVVgw4CpuXrqGLIjfBifenEsx aRdrXfoxLTorGTrr82byHKud9 4uXHBhclxwYXJccGFyZFxwYXJ 9 [facility] Work Phone: Disclaimer f8iqdWYuDJBwr0lxMLFa bGFuZ zEwMzNcZnRuYmpcdWMxIHtccn YfWTgytVrqCXKgYRFnl0its0h kxMFaCQNzk2eav7NciDBsgWIt NBfrgLNvwqFolw04lEM7tM37O K8iFZDsZyT8LYJxsxN8Pwi5SU ZkWEWyzRDqY609q5mnj4xearS fpAE2OQIjMWThN2StUN1gPKRm eWTcJ57diIGnDWL3HHEtHEDxl ZPwSMLqHIL3XPSrbEHrY1nnIQ BuDW0kqyuaVYszGYlkRPAbtHI 9UEDopIFlC4AqCZWvJVmcCMBc gsg9AxKnDb9niSYnsDruGAduO 0xneQ0gBqE3JFeeI5zrzS7jRV f6NMroYNFbfLQ4rwA9KSKeeXP nG6LryX2hCFYfQP9iorb3h7mq BAK0IFnsPLWcTeS4anH3MXChy GFyZFxwbGFpblxiXGZzMTZcY2 BiJFyoGs6pJTCbfrkeGLR1DDr dlWSkHXAcj3NwNAxLHEumTOkx N6pzqW9daponqVDeOMZrDGDaE NKQRHSgr8LbOE8uLCSdaHWqFK S3BOCdi4MyW0Cgy7XzzH5koI8 ovXnryF2nlBHnhJXzrYmhlL7p zJ8fHkr4e4Jbo8RjliBpWSTsN MIbmMCohU5iVO6eBwPvwi3qlI H5DNz7NoSmFBy3ZIJgq71kySB ymNDtxSR4ULAmTMFzRAFwlWLo bWluZWQgYnkgdGhlIHBlcmZvc q0mtovirRDtf8VdcL2arSM6fP FwoM1mN2vcssKrCT2iGZLujL0 iDslkDPRaMeMddIXVKcQAc60s qPOaJIMqaHmkbF1vdHTkiuKqF UZrt7DaiB8jlMPLNEWiC9fsCC ATDDMpiwYfCT08ERfPVCuhDIY iiJA0tjVLu9AorTDgoRulNGuz n07hB8PjCBQbwKAIz6CmcUUjq OchDgcwosquZXCVUGQ1a08nAG 0vpOq8EZqqFR1vhqL4MTtvg9R doCAfZCUYeoIqCR0mStg3NZAs KGDroZPveQWTQG33DRUfMD3qv xHcokANTQVruHzfIe8tuJoaIE 4foLp1KJzpXT2yVWOwnK3mGMz fb0CbpADxVXDyeiCjKO3inz4b noWzg06bzYE2CX70AWnzkRbrA 1wIOAGrEZT4dXBufMAdhCRuLZ 9xOQNzcmWgw4PtVC4mMGRxXMG cQHBmv3OdOP3xcVSrl7IuhQA0 LUMqRYSdQHFrKPCqHCOje2OmL ZVghr19NYEtJpxkqZutPWFZKF 5kQvApNEbNPTbfPJFbH5BwEYD yJEV7ylNnhmEMQIuBUKMfUSV2 QUvkTthsSQI5rtNsRRJeq5ZwB TmxE3nlW49efRskmTp2uKD2QV G8sC7bWiVChRZhREG6HOJ4wkY jrnMssILrHAUtw4NxQ9qjbjrt ELnytPHjxH2hHYWdUHXfYZAwK CTmj9UoHYIdy8GsVyRhmrKyMG GhJICoCRDtjW61HQP1qUlynXs gmpUmUN1tKSNxsbFcIPXyZKFe oP5nAU9wfMDgpuHcMT2sWI1tB 8O6vUPwUJSwfgLgy7uoSOA4ZN luIGFwcHJvcHJpYXRlbHkuXHB hcn19 [facility] Work Phone: FINAL DIAGNOSIS d2aipPJpZISquNBtAOTr NVxhb gIsJEOcyXEkK5LnxgmhCJhsOL 5cQZ0irCnjqQTjxTRuWXNtSmC zq3tzq924zRBlk0ogXZKHulgb aOd4nSctR73if7H5DjwgP2jmV WQwXGdyZWVuMFxibHVlMDtccm ZxLWnlahRqvuJyNcx4PUQ2ALd 9XHBhcGVydzEyMjQwXHBhcGVy sNA1DUYdFP9mfwmoTrXrRN3pn aygSfHdWT9gduf4NzVwAI4djd jaMqHqIZqaXOWgzal6AqCuJk8 isNGoeNchFPmjD5kkdG6lDpK0 HQxcB0vilL4gARo6AOlzXZZjk SG1vmclSKmtVWAqswB9eozrNC fhQIPpyRC7wnmmJAdqFXInOwR 4bjcyMFxwYXJkXHBsYWluXGJc DxFnHpgsGmKwZSUcOXGsan85n TYaF2wkmdVpCZkjQpTvAGQNTW AgXHBhciAgICAgICAgICAgUG9 sxBZnzjUyZw8zIN6bmPoffiFu mSMpULhukp1miVIbQVNxTTZzR SHxCLFOGABqnF7dOEWbVY5lvN CzbDbmEtW7s8Mhu4OhbIQjbol pW9wqxaUsy1ZmG0blPdYiN5Vu LKPnrR5zkpJeVOFbJMLfOBkdY ZHpB1BjHYHgcdguYvExCyWqZU y8dFJgKI6jNFLcJXGCNVNyNZA SaWdodCBuZWNrXHBhclxjZjAg HYStEUTzRZAoFUvkQfLgMR6cp XJyzpXuAr1xFY8osNihjkSokE KpRWsvnb9sY4EeHLPoMGVdAOB hciAgICAgICAgICAgXGNmMSBT iRYzmR54nlBfHPvaVNWikyJvr u5mFE4hVPMpGQBji19eOO71Bc lccGFyXGNmMCAgICAgICBccGF xEIEaLqtkOHXsFoJlU0ZzDFFp JEJci1ncx5wkutfiB0ZgkFSjz H8ve7Fhq7ThGVPbc2UfL2smeR VkIHdpdGggdGhpcyBjYXNlOlx wYXIgQTFcdGFiIENlbGwgQmxv J9wxIPDrW16df8nyWqj0NBYcf GFiXHBhclxiXHBhclxwYXJcYj RsZ9QhATSboe2= [facility] Work Phone: Gross Description j4wtdKIsJZNkwDMWLUNc MDJcY G9reOlgmHr7aMkgMRDrhoJ3wI ZlJFftu4okNGP6q1vkowAAIkq cLUVuIT2zUQkuMBEoRM9xKfUz XGRlZmYxXHBhcGVydzEyMjQwX BSuvRJnnVZ5QQBePA5cumrvLD dyUPlhAINpfgD2ASRlaZJdD3O zTUIpQI0nrcpvJWC3SMSCBzur Wp6mgWHysAbhLiIcDbRyEVWvT WZwXCCmt5hlyxUBmqzutAs1zN 5YQXRtB9DpLA4Pm1vwBPQacQO sCZF6DXuia1ueMNbbGRO3FQHh KFYtGWRnCR6OKuXoKLwoCIM6I zvhXoT9MOx7HPLHUEJxYAR8LX wlUpEyYEu5EDxaQMqgjYMdCXG oMGQiMRCeLBjzxaZ0n8wySGOg oJVxYAR5QMarp2juRQptMJU2H RGxBqEkIHOzGE8LXfFaIFxdIS X9KsejCdR0RSc5YUXGHeMrGwS kCaEgQGJ8LsCmXZh0EJx5KStI TsDzBPC0StE2RLKgDbZ3KFU7Q yBcXHQgMiBcXHNzIDMgXFxmbC McJX3qvYnfACJaHO3BBDEmWRe mYZEdYtZeWE0iBHRnm4RtUVMQ bGFuZCwgTGVmdFxsdHJjaFxmc gPhTEXpbxMPZlrxXUQdRO3OWG JpQYyoBOs4zjZnAHHrIwIqTPL nR10oc0PIb1EtTL1ENLx9pkEp upPUDdTkVWDlDJavkl53PIE0o 2ozlWWdPZcwFkdksAQgwcI6EG zPEPEDMPeGWaFzWI4pNHzGD9S SXBnDEdjxIGB8UCN0TGahyXiy GjtshhKrgJIhFmXEdA7urKPmu afkJixylMC7ZLzrWotzcJ1tjB LAWAWOQofTXmscquObUJ5EDGZ OQX3ZzTJ3FIhuNUgkqCP6j8et gWLxh8x5JVcvUTW8uYyvlTShz lxsdHJjaFxmczIyICBccHJvdG PgpMorXpsoqCD9JDohDrvgeY3 byASKBCVBHliWXgdijlPaNS0O ZRPWLyYSXR77LYEdPoE4zMM6M e44IRKkBZQloTVeBAunY900FK VwaWNTTFAxICBccHJvdGVjdDB 6VXNuFZpff3waMDHePFzkx8Lc BQtCTCQPZD9EVI4giKN0F5lTW MOEH1dElDX0p8zptEAtq8u7YX bjJZZ7aBCtiydapGkjF2Frl8u zkOBlYEqdCndbtXYidaW3DTaE SKORTBtQOcDhEZ2gRYqAYCLZE mO5R779UGYzOTVsiILlQNrbN8 74RSNjXOlaZIj7bhNoFNIhn4T pG0KsCoIiRemxfOfjG4kEJSUo e2cbwWJfHDybDwmazQVndpX6V CzYXTMXCZqIXaEgRY9hAWiRZ7 ENTlM1ULPjBsA7rHM3Tz80YWT rBLLukCNtBLfgR069NSIbWTyx SIs8ncEnCYVaItDqLFyijn12Y BN9n5texJPsUSlyMcdfmKSlru V2BFwSJJRXGOzMDkAsTF4yJFe YW4JKVZbYWlkwSGQ7RNl4ADr0 gBprMzwodzGqzNZeCgTGcX6En CJfDAc2r6zhtYQfGZnlWviyaO EzbaT3PBhORAMKFSzGZiGbBP1 fTGgMH3RPQeN3LEGsLdR9mED6 ED65DHFwNLLrbHXkHUeyD492F IFhGZxoMHa3tqEeQJMqMfEzRS zjac88NRO4d0brqYLcGXhxBqs reBRungJ5DLjALCXHZUwLNwFz JN6zVFiQL2DOLPrUWvhzNGO5G fX8LUk4fMbaFiqicpEquSFyZy XPeW88iIDhHUWkjcTjQ7rkr1y lLrnmqXQ8QIvnTnwxyG2pfCWQ QACAGmxOXafkppCtLA2WBAPBV N6FyJA5LAkoWKh5oHO9j5ccoC Ipx4q4TOaqRNQ1uRqiiECnejf ayIWywLfvtpYxWF1mKZgfoh07 EEI7g5tjgVDvAHuhSdreoUBal dI8OUyWJUCVXZxKEcDgVJ3hME bSJ8JRMQnECokdZABpGkq1Kyw 7rCxhLfzvfaZftFPnZhRTvO0X xOwiSXMfvBTzysItG5MqdLPCi U9bh4pyPrjemXG7OVxqFdcdgQ 7nsMNFDJNXGnsSVgwexlEiFY9 SRXSLRB8CkNH2QAZ4K4f5rPX6 s9mkdIJui0r0CTdiFJY9rMepn GFpblxsdHJjaFxmczIyICBwcm VwYXJlZCBccHJvdGVjdHtcZml hxAG4HJunYbmgcW9klHNPIDSL YsqGSvkqbtRuSY3UOBFJFaZUB M04AKAoWII8xZh8L569IELbFU GwcAZfBBujG377DV1iIMlzca1 8UPU1MGyoJrrowJI4ZUlmQgub lQ0wxRYYPMDYRpyHNyftgkMiD K0ROMkMMsGGPL04DR76QRRwZD KiwUXgIVlsZ780RDyhLhsmhCF 3PIwxGlpmpY6lxBAFVCWEGuiW PvzpjdPhEI3ZWKyWYU1OnRo9n 5shbWSsr4m7EQtrBGA2eHstlG XpjvfwnJRqkYhczu74DQZ3GGM iLlTfLJLhTTCnbu87DGYhAYes x1wmUJUePPqbm1GuEQtJJIQGC I9JQJ6zgKU9MJgFMZYITMhxAL E5IWE1M0j5iIprMzrtcdZbpYF qCzKNyR6siZtmrI3hpMZkG8bu RsAuXylhFYAuQDnyg6AkOUzcp LdiLAXwZuDrMBfmywGHYob0WX uziWobNjOwaZVqGlN0ETEmsIR mYIF1FH2fpGfxBJKcXFu0GEzr VWHdR5WvG9RbNMluKhJeIDajY GTwQAEbVTkuZBLuI5BPYOUkHK W9ANU0KSSyDHg6ICt9HE0ILtV gKBW6ZKI0VIV3IMNfSPm9CEbp BW8KGFO6Czm3FVu3CAD3DXL5M DmeZVqsxOHrIXrrr9UkQpVbVU NiHIgjxfM0KHQrabUtf4JgBDA cXPIrN5whIdPnHRSIQnltwjHn QMEvJPJtSSg8zMJjNF1uYVHxY GMfMTYjRjyyS0t6MPMbmsXBx0 9fBB40ifwmFuAlGkiwTDMgVYn ccGFyZCANClxwbGFpblxsdHJj uPaugcKoTUJxqYOQCEO0TM1vH HVOCffiyCAjJOOlh5EpOKtisK ljWHNiMzAgDQozMCBjYyBccHJ ifMGorTinWvpwqQN6AMgpIsvn fI6pqCPSEAJTXahDMkjglzFtW N2HTQPOBaNVRF42ZDLiAjN9bK F7IP00RHJyUQUanYGoTMsiE37 1U4bpYWR2FAJyPJkmo6trIDAc OUnvj5LjGYpEIYZXDC1BAS4dy WW5DWjSGDPMNAkwNON7GVL9LQ wxfXtcZmxkcnNsdCBcJzFDfX1 rlMyziB2xyIGiK0vpRtXmTwTp DYMvd1IrE4V4YTMoVZmsb5jlI CXnWQxgf4KxFPlQYJBKDQ1UUW 6gtBW1QQhKJNMUD7mChPO2FPw mXMyezQY0f9mmeESyq2n2PQzj YBC2tUElbO6tkMRnq8haZraex GO0QQhlFeikxH3adSZLJGKLTf jFOptgpyNhUQ3IJGPSMR7TfRZ 0BOijAFmgbWI4u2vmfQPha3f0 MIzwJRG8jIzmdBDzjnjioNTtc FxmczIyICBccHJvdGVjdHtcZm aypDC7RIiqRvxzjH3skWPQDIJ NPweVVlktjtZsVL6CFQDCApEP ZX57SLFlFcO7bTI8W389JZHpN UOytZIeCHgbH958P1c6y9h2bL vwWarkbXA8VDfoTafmxE4fnJQ JKQZDZgpAQepqrcBzJV5FWMSY UR0KoWN2GLgdNTqmmLM1u6opc HHdk9f8RFkkLND4wKjksIAobc xsdHJjaFxmczIyICBccHJvdGV psVxyGpjtrCU3FKbxQseliN3f dQLZGNMGQwnCHknsvyZwHW1WB LZUAjKGNU74JWNxAqTzlVT5EK 91RMSpTYTqfHLmYUtiB832k7g 3cRMiS1QdxVPoDBI4oSNfXCY2 ZDCwRLoec0ubKJJbHGcbg0IrY WvCNUVDPB5AXV1nrUA6KTgLZM YNKQnhSOO9DoA2ZNo6tDwhEos trlAvgHEdSjDNdQ9vrXbtcJ9u zQOwO2ubNoDnIuLvGPSslLMqr BDsvBzxFzpviHQ0RZwyKsfokU 3dcKDZDEVERaeIVmoumtBuHW0 HUGKCObOTEX47MET7FKa1iBR6 GX25GVMqVYWzlTViIVqkF355E AqateVgKIF6SUMzMFbti0nvKH BvTYgiv2PzNNeODFNJUK9XUS6 rbPA7BZkQCMPJAUheKVYoLyj1 GAa2fWenJsyupvSkuGCzEhDVb T4sbAtliM9hvVZcY0wsSsDrBj EltDFuhTRkASUfRGCsk4WoA2J 0RTLlYDzhy0uhJGArFQqky2Wk IPiOXSJQXY4RVX1lwEU3MYzVA QXPZ1mVfBC4GVudATf4dRC6s7 eecAEmm3o2HTukQRM1oBMbTWK tvQMpiCYqnVY3HKSxNBvud1ey XXZqUTuvp6UpMYuMMEYCUF4QC F3mlYZ9V5tTFKUHI8fOpNy9a3 wioURkn4v1OGufHEV9rLH1YRR hTJwwl6pxQZLwTOewd4PoIAnM SXVCFZ0JTI3psDS2W2mISWYBR Ud0yKfqFkdtwkMopNUbVzQKiB 4ijIdxmX3fsHToV4tdvZWlwOF kwWtuixVvTJJdqNGombMgr0se aERdFVmlUthjiXCscdQ4SNzVU BXDMWtYWcCpCA0lJRbOG3XNYk X0IFDtLAT4eTQ3Ko62KRQjLLQ xqURiXQlgB621ANYqWLvwSPv6 psZyHHYgRmEotWMjEE6NGDWbc mRcbHRycGFyXHNhMzBcZXBpY1 viGOCaAV7FQBSyVBrvgmFmJML vD66ff3FEp6Nvu6xrrVgwl9Db rFYcMP75FULsgVJrDAO2LV8lh VxwYXIgDQpccGFyZCANClxwbG FpbiANCn0= [facility] Work Phone: Performing Lab n2psdFRwGHOlt2bfOWAk bGFuZ zEwMzNcZnRuYmpcdWMxIHtccn RmMVxhbnNpXGRlZmxhbmcxMDM aKIO7ipRlRXRhWDW4FPW2XmIo KFBdTvYePYJ1MYIac8xtp0Fze EFxgVFbGEmzkPDrscMzba04eS I1iV69NM2pBUQwRwA5KBQcdqF 5Neq9ZIGpMFJpoLSwJ813z2zu f4wgfpSkiXZ1bEczCOQftdkxX hH7MTbcPIHsbblnXLw7YPlrDB YmsKH3KVHxsKQcG3NcZCIzKH1 pokh0EHV7HLtgIQVfDdH4GMKs hLWvIMFmxOahXPdgs739HLF9J aVrSRToz5E2irQaKoHoOIOugJ E5snM8YGNbZR6ccmffg7ynFTv kUGhdRWLcsgD2dlH5DYHxxHVp S9FceW8eIVRmQJ5askcal9lmY FU9IMgoZAZkRUVyAOdbFJYdOh QtHSKpwV0cW6SjABEeuUVoioC igSzbW8c9y3AlB1saj1ltG9yz jUAcW3SgZG8tppeqmGHlBa7wt QGuISO8LoTNoTU2TDhfmdFgI1 qtvikbJB6fhL3aV1TyySGmGSa sn6NhyPJwVGepLm9nSCXlgwrb EBi7VHZyBDKiwCdxQEE0OW91Z SwgRGVzayBMMjEsIENsZXZlbG MqNKEPXNZ5ZZD0EIOpG4zZAGl yViLRGOE4HzH0TZugIGE9gAmo dfCgIZyywNazSMKvNHEgKI3bo BkwrBe5iVtmWLBdmoJ6kDUbDL zew1pmUWO9n5tucimjCRZdUCm aZf5owBYwnZoyCtIuISMzODe4 rS90STTzbA7olYLnMKu5KOClr BEnjvMoQpWeDCAxhVFlkDJ2PW UaVG4vjtxlRCloGYdjUMMygmZ 4EIZtaQDaA8SeZJFbPR4nrkjt AZB5RSbhHBXnXQH8GpJqMJEoy 1Ppjhk3IcOxfQe0w0dbOKHkQI EqeZisp8fkOHA2XEKuqCMhI7z yyH9xUHRzIO6tdzxex7riBIdy OCpgIHSkrCP2ajO7KQAsaYIlR 9DnqQ3tFVWcEMIjhiFyeLpjsI 6sGuLzVGLCaSVzln0alTzfOSm coLNemSQceYE1bH1nUBNatdBx bz5mVMPnnWchU8wkdmYlFU6dV SOeaW6eIhDBFLjfRGSquQT6iy IIz3MrgVMzjUNOWMMrebS6x0J 7HLU8EJRmPMZ3T0ijVYNOyaLa cEJlMYUmo8anFMZcSGZNyRB8Z JkeyiLhG3pdNJDsZSAoYSWLLC oBQfNrQbIbExO2EPg5IKBtdwS uzIOpTDdaSn2jIQNsngivQUfy NTT8c1U4LLltjEZwfoKXFA5zc WNrcywgTURccGFyfX0= [facility] Work Phone: [facility] Work Phone: [facility] 02-07-2025 [facility] Office Visit (OTFGFL ) ----- DIANA THURSTON ([id number]) 1945 M Date Time Provider Department 02/07/25 2:00 PM [facility] During your visit today, we recorded the following information about you: Pulse Blood pressure Weight 76/minute 113/74 94.6 kg Cortney Desouza MD 02/13/2025 3:53 PM Addendum We will call you with the results of the biopsies. Cortney Desouza MD 02/13/2025 4:04 PM Signed Procedure: Laryngeal stroboscopy Pre-/post diagnosis: Right neck metastasis of cancer Description: TO. Topical local anesthetic was applied through the right nares. The flexible laryngoscope was used. 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 There was normal TVC motion. On stroboscopy, there was bilateral moderately decreased wave amplitude. The findings were reviewed with them. Procedure: FNA right neck metastasis of cancer and left parotid mass Pre-/post diagnosis: Right neck metastasis of cancer and left parotid mass Description: TO. I reviewed with them R/B/A and the patient gave REID. Topical local anesthetic was injected over the left parotid mass and the right neck mass/lymph node. A 23-gauge needle was used at each site. Slides and wash were prepared. The patient tolerated the procedure well without bleeding. They were instructed in postprocedure care. Cortney Desouza MD Created using voice recognition software, some errors may have occurred. Corrections may be performed at a later date. Cortney Desouza MD 02/13/2025 4:04 PM Signed TRIBE: Diana Thurston is a 79 year old, White, male who returns with his family, I am here about my CT results. 2 years ago he noticed a left neck mass and saw ENT in [place]. A biopsy showed basal cell adenoma/monomorphic adenoma. He was referred to have surgery but never pursued that. I saw him several weeks ago and ordered a neck CT which he had done. He does have a history of past use of alcohol and tobacco. He used the eardrops I ordered last visit. SUBJECTIVE: I reviewed the allergies, medications, problem list, PMH/PSH, FmHx and SocHx as documented in Epic chart. PHYSICAL EXAM: VS: weight is 94.6 kg (208 lb 9.6 oz). His blood pressure is 113/74 and his pulse is 76. His oxygen saturation is 99%. H/F/N: The facial motion is overall normal. The left parotid posteriorly and inferiorly has a firm/hard 4X5 cm mass and the right neck level IIA-III area has a 1 cm palpable lymph node. Ears: The external ears and canals are without lesions. The right TM is intact and mobile on pneumatic otoscopy. The left TM has an anterior/inferior 2 mm perforation. Nose: The external nose is without lesions. The nasal mucosa appears healthy on nasal speculum exam. The septum has left greater than right deviation. The IT are not hypertrophic. OC/OP: The lips and visualized gums are without lesions. The tongue/oral mucosa is healthy. The soft palate, tonsil fossa and posterior pharynx are without lesions. There is an upper denture but the lower jaw is edentulous. OBJECTIVE: I reviewed with them that the right tongue base/vallecula has an irregularly shaped enhancing lesion consistent with squamous cell carcinoma and there is a right neck lymph node heterogeneously attenuating consistent with metastasis. The left parotid mass involves the deep and superficial lobes, surrounds the facial nerve. There is some osseous thinning of the left inferior mastoid bone and the mass abuts the jaw. This has the appearance of cancer. ASSESSMENT AND PLAN: I counseled them about the differential diagnosis, natural course, treatment options and answered their questions for all diagnoses and orders: 1. Cancer of base of tongue (HCC) - ICD9: 141.0, ICD10: C01 2. 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 Mass of left parotid gland - ICD9: 527.8, ICD10: K11.8-likely cancer I counseled them that we should do an office scope and biopsy of both neck masses. They would like to do that today, see below. We will contact them with the results. Return Based on biopsy result. Cortney Desouza MD 45 minutes Total time including preparation, obtaining/reviewing history, exam, interpreting results, ordering, counseling/education, referring/communicating and documentation. Created using voice recognition software, some errors may have occurred. Corrections may be performed at a later date. PROCEDURE NOTE Procedure: Laryngeal stroboscopy Pre-/post diagnosis: Right neck metastasis of cancer Description: TO. Topical local anesthetic was applied through the right nares. The flexible laryngoscope was used. 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 There was normal TVC motion. On stroboscopy, there was bilateral moderately decreased wave amplitude. The findings were reviewed with them (more content not included)... Normal [facility] CYTOLOGY NON-GYNon 5 AP DISCLAIMER Normal [facility] Comment on above: Order Comment: Speci men Type: SPECIMEN OBTAINED BY ASPIRATION Ordering Facility: [facility] Address: [address] [place] [address] Result Comment: Debra salcedo Developed Test (LDT) Disclaimer: Performance characteristics of immunohistochemical, immunofluorescent, and chromogenic in-situ hybridization tests have been determined by the performing laboratory within [facility]'s [facility] Pathology and Laboratory Medicine Department ([facility], [facility], [facility], [facility], [facility], [facility], or [facility]) in a manner consistent with CLIA requirements. One or more of these tests may not have been cleared or approved by the FDA. [facility] is regulated under CLIA as qualified to perform high-complexity testing. These tests are used for clinical purposes. These should not be regarded as investigational or for research. Positive and negative controls stain appropriately. Performed By: #### C YTONON #### [facility] CLIA [id number] [address] [place] [address] [place] CASE REPORT Normal [facility] Comment on above: Order Comment: Speci men Type: SPECIMEN OBTAINED BY ASPIRATION Ordering Facility: [facility] Address: [address] [place] [address] Result Comment: [facility] Cytology Report Case: [id number] Authorizing Provider: Cortney Desouza MD Collected: 02/07/2025 02:45 PM Ordering Location: [facility] Received: 02/07/2025 08:27 PM General Ear, Nose, and Throat (ENT) Pathologist: Magdalena Obregon MD Specimens: A) - Parotid Gland, Left B) - Lymph Node (Specify Site in Comments), Right neck Performed By: #### C YTONON #### [facility] CLIA [id number] [address] [place] [address] [place] CLINICAL HISTORY Normal [facility] Comment on above: Order Comment: Speci men Type: SPECIMEN OBTAINED BY ASPIRATION Ordering Facility: [facility] Address: [address] [place] [address] Result Comment: Left parotid mass, enlarging, infiltrating, 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 T he salivary gland aspirate shows a basaloid neoplasm with scant cytoplasm arranged in sheets and small clusters, associated with basement membrane like matrix material. Immunohistochemical stains performed on the cell block show the neoplastic cells are positive for CK7, P40, SOX10 (weak), and SMA, and negative for CD117. A LEF1 is equivocal. This immunophenotype would favor a salivary gland neoplasm, and the differential diagnosis would include basal cell adenoma/adenocarcinoma, adenoid cystic carcinoma, myoepithelial carcinoma and other basaloid salivary gland neoplasms. It is morphologically different than the squamous cell carcinoma present in part B. B. The smears show a predominantly non-keratinizing squamous cell carcinoma. Material is only present on the aspirate smears; the needle rinse material (ThinPrep slide and cell block) is acellular. Therefore, insufficient material is present in the vial for additional testing, such as HPV testing. Clinical correlation is suggested. This case was reviewed in consultation with Drs. Cervantes and Josefa at the cytology consensus conference, who agree with both diagnoses. No validation on specimen type or on patient population (SOX10, LEF1, CD117, SMA) Positive and negative controls stain appropriately. One or more of these tests have not been validated for the specimen type submitted or its clinical utility has not been established for this patient population. The test results should be interpreted with caution and in the context of the patient's clinical condition. Performed By: #### C YTONON #### [facility] CLIA [id number] [address] [place] [address] [place] FINAL DIAGNOSIS Normal [facility] Comment on above: Order Comment: Speci men Type: SPECIMEN OBTAINED BY ASPIRATION Ordering Facility: [facility] Address: [address] [place] [address] Result Comment: A - Parotid Gland, Left, FNA Positive for malignant cells. Basaloid neoplasm, favor salivary gland origin. (See comment.) B - Lymph Node, FNA - Right neck Positive for malignant cells. Squamous cell carcinoma. (See comment.) The following cell blocks were associated with this case: A1 Cell Block, Alcohol Fixed at 1558 EDT Performed By: #### C YTONON #### [facility] CLIA [id number] [address] [place] [address] OF [facility] FINAL PERFORMING LAB Normal [facility] Comment on above: Order Comment: Speci men Type: SPECIMEN OBTAINED BY ASPIRATION Ordering Facility: [facility] Address: [address] [place] [address] Result Comment: Tech nical component, change house attendant screening performed at: [facility], [address] [place] [address] CLIA: [id number] Diagnostic interpretation performed at: [facility], [address] [place] [address] CLIA# [id number] Whizzer: Matias Leung MD Performed By: #### C YTONON #### [facility] CLIA [id number] [address] [place] [address] GROSS DESCRIPTION Normal [facility] Comment on above: Order Comment: Speci men Type: SPECIMEN OBTAINED BY ASPIRATION Ordering Facility: [facility] Address: [address] [place] [address] Result Comment: A. P arotid Gland, Left 30 cc clear pink tinged CytoLyt with particles. ThinPrep and Cell Block prepared and 4 smears. B. Lymph Node (Specify Site in Comments) 30 cc clear colorless CytoLyt with scant particles. ThinPrep prepared and 4 smears. 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 A series of contiguous helical scans were performed from the skull base to the aortic arch. M: CTNW_1 Contrast: 100 mL Omnipaque [address] Dose-Length Product (DLP): 315 mGy*cm CT Dose Reduction Employed: Automated exposure control(AEC) and iterative recon COMPARISON: None available. RESULT: Localizer Images: Metallic plate in the region of the left greater than right frontal calvaria with extensive associated streak artifact limiting evaluation of the intracranial structures. Suprahyoid Neck: Lobulated enhancing left parotid mass involving the superficial and deep lobes measuring 51 x 50 x 44 mm (AP x TV x CC). There is osseous thinning at the left inferior mastoid bone (axial image 43). Partial opacification of left mastoid air cells. Unremarkable right parotid gland. Mild fatty atrophy of left submandibular gland may reflect sequela of prior infection/inflammation on the left. Irregularly-shaped enhancing lesion in the right greater than tongue base extending into the valleculae and involving the anterior surface of the epiglottis. 7 mm hyperattenuating lesion in the midline anterior to this, immediately superior to the hyoid bone. Unremarkable nasopharynx. Unremarkable parapharyngeal tissues. Unremarkable floor of mouth. Unremarkable vice president of operations spaces. Infrahyoid Neck: Unremarkable hypopharynx. Unremarkable larynx. Unremarkable upper trachea. Unremarkable upper esophagus. Subcentimeter left inferior thyroid gland nodule. Lymph Nodes: Heterogeneously attenuating right level 2A node measures 16 x 14 mm (AP x TV; series 2 image 81). Carotid Space: Mild calcifications at the bilateral carotid bifurcations. Otherwise patent carotid arteries. Patent internal jugular veins. Orbits, Face, and Skull Base: Left mastoid findings as above. Right mastoid air cells are clear. Unremarkable orbits. Clear paranasal sinuses. Clear middle ear cavities. Unremarkable TMJs. Imaged Intracranial Contents: No mass. No hydrocephalus. No abnormal enhancement. Cervical Spine: Straightening of the cervical spine. No high-grade spinal canal stenosis. Multilevel neural foraminal stenosis with high-grade stenosis on the right at C3-4. No osteolytic or osteoblastic lesion. Lung Apices: No mass. Mediastinal lymph nodes which measure subcentimeter in short axis. IMPRESSION: Enhancing lesion in the right tongue base/vallecula with pathologic right level 2A node, concerning for primary neoplasm with nas metastasis. Recommend direct visualization and tissue sampling as clinical warranted. Small enhancing focus in the pre-epiglottic region just anterior to this may be related to the above, versus ectopic thyroid tissue. Large 51 mm irregular enhancing left parotid mass involving the superficial and deep lobes. Adjacent cortical thinning at the inferior left mastoid tip. 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 No prior imaging is available for review however if these become available, comparison for interval change can be made and an addendum issued at clinician request. In addition, MRI face protocol without and with contrast would be of value to assess for perineural extension along the left facial nerve. No left-sided cervical lymphadenopathy. COMMUNICATION: Communicated with DR. CORTNEY DESOUZA on 02/02/2025 5:03 PM via verbal communication. Optical Glass Sawyer: RUBY Transcribe Date/Time: Feb 02 2025 2:37P Dictated by : JOHANA FRANZ MD This examination was interpreted and the report reviewed and electronically signed by: CEASAR SERRANO MD on Feb 02 2025 5:22PM EST [id number] Normal [facility] CT Neck W contrast Ike 05-0 IMPRESSION: Enhancing lesion in the right tongue base/vallecula with pathologic right level 2A node, concerning for primary neoplasm with nas metastasis. Recommend direct visualization and tissue sampling as clinical warranted. Small enhancing focus in the pre-epiglottic region just anterior to this may be related to the above, versus ectopic thyroid tissue. Large 51 mm irregular enhancing left parotid mass involving the superficial and deep lobes. Adjacent cortical thinning at the inferior left mastoid tip. 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 No prior imaging is available for review however if these become available, comparison for interval change can be made and an addendum issued at clinician request. In addition, MRI face protocol without and with contrast would be of value to assess for perineural extension along the left facial nerve. No left-sided cervical lymphadenopathy. COMMUNICATION: Communicated with DR. CORTNEY DESOUZA on 02/02/2025 5:03 PM via verbal communication. 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 A series of contiguous helical scans were performed from the skull base to the aortic arch. M: CTNW_1 Contrast: 100 mL Omnipaque [address] Dose-Length Product (DLP): 315 mGy*cm CT Dose Reduction Employed: Automated exposure control(AEC) and iterative recon COMPARISON: None available. RESULT: Localizer Images: Metallic plate in the region of the left greater than right frontal calvaria with extensive associated streak artifact limiting evaluation of the intracranial structures. Suprahyoid Neck: Lobulated enhancing left parotid mass involving the superficial and deep lobes measuring 51 x 50 x 44 mm (AP x TV x CC). There is osseous thinning at the left inferior mastoid bone (axial image 43). Partial opacification of left mastoid air cells. Unremarkable right parotid gland. Mild fatty atrophy of left submandibular gland may reflect sequela of prior infection/inflammation on the left. Irregularly-shaped enhancing lesion in the right greater than tongue base extending into the valleculae and involving the anterior surface of the epiglottis. 7 mm hyperattenuating lesion in the midline anterior to this, immediately superior to the hyoid bone. Unremarkable nasopharynx. Unremarkable parapharyngeal tissues. Unremarkable floor of mouth. Unremarkable vice president of operations spaces. Infrahyoid Neck: Unremarkable hypopharynx. Unremarkable larynx. Unremarkable upper trachea. Unremarkable upper esophagus. Subcentimeter left inferior thyroid gland nodule. Lymph Nodes: Heterogeneously attenuating right level 2A node measures 16 x 14 mm (AP x TV; series 2 image 81). Carotid Space: Mild calcifications at the bilateral carotid bifurcations. Otherwise patent carotid arteries. Patent internal jugular veins. Orbits, Face, and Skull Base: Left mastoid findings as above. Right mastoid air cells are clear. Unremarkable orbits. Clear paranasal sinuses. Clear middle ear cavities. Unremarkable TMJs. Imaged Intracranial Contents: No mass. No hydrocephalus. No abnormal enhancement. Cervical Spine: Straightening of the cervical spine. No high-grade spinal canal stenosis. Multilevel neural foraminal stenosis with high-grade stenosis on the right at C3-4. No osteolytic or osteoblastic lesion. Lung Apices: No mass. Mediastinal lymph nodes which measure subcentimeter in short axis. [facility] Provider, 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 A series of contiguous helical scans were performed from the skull base to the aortic arch. M: CTNW_1 Contrast: 100 mL Omnipaque [address] Dose-Length Product (DLP): 315 mGy*cm CT Dose Reduction Employed: Automated exposure control(AEC) and iterative recon COMPARISON: None available. RESULT: Localizer Images: Metallic plate in the region of the left greater than right frontal calvaria with extensive associated streak artifact limiting evaluation of the intracranial structures. Suprahyoid Neck: Lobulated enhancing left parotid mass involving the superficial and deep lobes measuring 51 x 50 x 44 mm (AP x TV x CC). There is osseous thinning at the left inferior mastoid bone (axial image 43). Partial opacification of left mastoid air cells. Unremarkable right parotid gland. Mild fatty atrophy of left submandibular gland may reflect sequela of prior infection/inflammation on the left. Irregularly-shaped enhancing lesion in the right greater than tongue base extending into the valleculae and involving the anterior surface of the epiglottis. 7 mm hyperattenuating lesion in the midline anterior to this, immediately superior to the hyoid bone. Unremarkable nasopharynx. Unremarkable parapharyngeal tissues. Unremarkable floor of mouth. Unremarkable vice president of operations spaces. Infrahyoid Neck: Unremarkable hypopharynx. Unremarkable larynx. Unremarkable upper trachea. Unremarkable upper esophagus. Subcentimeter left inferior thyroid gland nodule. Lymph Nodes: Heterogeneously attenuating right level 2A node measures 16 x 14 mm (AP x TV; series 2 image 81). Carotid Space: Mild calcifications at the bilateral carotid bifurcations. Otherwise patent carotid arteries. Patent internal jugular veins. Orbits, Face, and Skull Base: Left mastoid findings as above. Right mastoid air cells are clear. Unremarkable orbits. Clear paranasal sinuses. Clear middle ear cavities. Unremarkable TMJs. Imaged Intracranial Contents: No mass. No hydrocephalus. No abnormal enhancement. Cervical Spine: Straightening of the cervical spine. No high-grade spinal canal stenosis. Multilevel neural foraminal stenosis with high-grade stenosis on the right at C3-4. No osteolytic or osteoblastic lesion. Lung Apices: No mass. Mediastinal lymph nodes which measure subcentimeter in short axis. IMPRESSION IMPRESSION: Enhancing lesion in the right tongue base/vallecula with pathologic right level 2A node, concerning for primary neoplasm with nas metastasis. Recommend direct visualization and tissue sampling as clinical warranted. Small enhancing focus in the pre-epiglottic region just anterior to this may be related to the above, versus ectopic thyroid tissue. Large 51 mm irregular enhancing left parotid mass involving the superficial and deep lobes. Adjacent cortical thinning at the inferior left mastoid tip. 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 No prior imaging is available for review however if these become available, comparison for interval change can be made and an addendum issued at clinician request. In addition, MRI face protocol without and with contrast would be of value to assess for perineural extension along the left facial nerve. No left-sided cervical lymphadenopathy. COMMUNICATION: Communicated with DR. CORTNEY DESOUZA on 02/02/2025 5:03 PM via verbal communication. Optical Glass Sawyer: RUBY Transcribe Date/Time: Feb 02 2025 2:37P Dictated by : JOHANA FRANZ MD This examination was interpreted and the report reviewed and electronically signed by: CEASAR SERRANO MD on Feb 02 2025 5:22PM [facility] Radiology Study observation (narrative) [facility] CT Neck W contrast IVOrdered By: [facility] Provider on 02-02-2025 [facility] Creatinine + eGFR Pnl SerPlB ldon 02-02-2025 Creatinine and Glomerular filtration rate.predicted panel (S/P/Bld) 67 mL/min/1.73m??? Normal >=60 [facility] Comment on above: Order Comment: Specemmanuel jade Type: BLOOD SPECIMENOrdering Facility: [facility] Address: [address] [place] [address] Result Comment: [facility] Glomerular Filtration Rate (eGFR) is calculated using the 2020 CKD-EPI creatinine equation. This equation utilizes serum creatinine, sex, and age as parameters. The creatinine assay has traceable calibration to isotope dilution-mass spectrometry. Refer to KDIGO guidelines for clinical interpretation. In patients with unstable renal function, e.g. those with acute kidney injury, the eGFR may not accurately reflect actual GFR. Performed By: #### 4 5066-8 ####[facility] LABORATORYCLIA [id number] [address] Creatinine and Glomerular fi ltration rate.predicted panel (S/P/Bld)on 02-02-2025 Creatinine [Mass/Vol] 1.13 mg/dL Normal 0.73-1.22 [facility] Comment on above: Order Comment: Saira jade Type: BLOOD SPECIMENOrdering Facility: [facility] Address: [address] [place] [address] Performed By: #### 4 5066-8 ####CROWDER LABORATORYCLIA [id number] [place] [id number] [facility] NURSING PROGon 02-02-2025 NURSING PROG HNO ID: [id number] Author: AIDEE OWEN RN Service: Interventional Radiology Author Type: Registered Nurse Type: Nursing Progress Note Filed: 02/02/2025 14:04 Note Text: Radiology Service Progress Note DATE OF SERVICE: February 02, 2025 TIME: 2:03 PM PATIENT WEIGHT: 216LBS PATIENT IDENTITY VERIFICATION COMPLETED USING TWO (2) STANDARD IDENTIFIERS: Name and Date of confirmed by patient verbally and Name and Date of confirmed by identification band. FALL SCREENING: Has the patient had 2 falls in the last year or 1 fall with injury or currently using an Ambulatory Assistive Device (Walker, Cane, Wheelchair, Crutches, etc.)? No PATIENT GENDER DATA: Assigned male at ALLERGIES: Reviewed and unchanged CONTRAST ALLERGY: No EXAM: CT -CONTRAST INDUCED NEPHROPATHY RISK FACTORS: Patient age > 60 years CREATININE: Creatinine Date Value Ref Range Status 02/02/2025 1.13 0.73 - 1.22 mg/dL Final 06/02/2024 0.98 0.73 - 1.22 mg/dL Final 05/10/2024 0.88 0.73 - 1.22 mg/dL Final Estimated Glomerular Filtration Rate Date Value Ref Range Status 02/02/2025 67 >=60 mL/min/1.73m? Final Comment: Estimated Glomerular Filtration Rate (eGFR) is calculated using the 2020 CKD-EPI creatinine equation. This equation utilizes serum creatinine, sex, and age as parameters. The creatinine assay has traceable calibration to isotope dilution-mass spectrometry. Refer to KDIGO guidelines for clinical interpretation. In patients with unstable renal function, e.g. those with acute kidney injury, the eGFR may not accurately reflect actual GFR. P.O.C.T. RESULTS: N/A February 02, 2025 TREATMENT: N/A IV SITE: Ambulatory: A peripheral IV was started in the Left antecubital site with a Angio cath: 22 gauge. IV SITE APPEARANCE: Clean,Dry and Intact SIGNATURE: Aidee Owen RN PATIENT NAME: Diana Thurston DATE: February 02, 2025 TIME: 2:03 PM [facility] (OTFGFL ) ----- DIANA THURSTON ([id number]) 1945 M Date Time Provider Department 01/18/25 11:00 AM CORTNEY DESOUZA OTFGFL During your visit today, we recorded the following information about you: Pulse Respiration Blood pressure Weight 60/minute 16/minute 132/80 98 kg Height 1.676 m Cortney Desouza MD 01/18/2025 11:55 AM Addendum Use 2 drops of each of the bottles of eyedrops in the left ear twice a day. You may stop the drops if the drainage stops. Cortney Desouza MD 01/24/2025 6:19 PM Signed TRIBE: Diana Thurston is a 79 year old, White, male who presents with his [id number], I am here about my left ear/face. He has swelling of the left face near the ear for a couple of years. It is not enlarging. He saw ENT in [place] and had a biopsy. He was told he needed surgery. He has daily left ear drainage for months. He is not tried any treatment. He has had bad hearing for years but noticed it is more left than right since the drainage started. He is not having ear pain, tinnitus or vertigo. He does not have general bleeding or bruising problems and does not use aspirin or blood thinners. SUBJECTIVE: I reviewed the allergies, medications, problem list, PMH/PSH, FmHx and SocHx as documented in Epic chart. PHYSICAL EXAM: VS: height is 167.6 cm (5' 6) and weight is 98 kg (216 lb). His blood pressure is 132/80 and his pulse is 60. His respiration is 16. CONST/MS: The patient appears to be in NAD and has a normal voice quality. H/F/N: The facial motion is overall normal. There are no palpable salivary gland, thyroid or neck masses, except the left parotid inferiorly and posteriorly has a firm/hard 4 x 4 centimeter mass. Ears: The external ears and right canal are without lesions. The left canal has some drainage and moist debris which I suctioned. The right TM is intact and mobile on pneumatic otoscopy. The left TM has an anterior/inferior 2 mm perforation. Nose: The external nose is without lesions. The nasal mucosa appears healthy on nasal speculum exam. The septum has left greater than right deviation. The IT are not hypertrophic. OC/OP: The lips and visualized gums are without lesions. The tongue/oral mucosa is healthy. The soft palate, tonsil fossa and posterior pharynx are without lesions. There is an upper denture but the lower jaw is a dentulous. FELT HAT INSPECTOR AND PACKER: The mirror exam is without obvious lesion. HP/LX: The mirror exam is prevented by gagging. OBJECTIVE: I requested the records from [place] [facility]. I received them later in the day after the patient left. 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 ASSESSMENT AND PLAN: I counseled them about the differential diagnosis, natural course, treatment options and answered their questions for all diagnoses and orders: 1. 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 Otorrhea, left - ICD9: 388.60, ICD10: H92.12 3. Tympanic membrane perforation, left - ICD9: 384.20, ICD10: H72.92 4. Screening for nephropathy - ICD9: V81.5, ICD10: Z13.89 Prescriptions for ciprofloxacin ophthalmic and dexamethasone ophthalmic, 5 mL each, NRF were sent. He was counseled to use 2 drops of each of these in the left ear twice a day. We will check a neck CT and see him afterward. He was counseled he needs to consider parotidectomy. Return for Test Results, neck CT. Cortney Desouza MD 65 minutes Total time including preparation, obtaining/reviewing history, exam, interpreting results, ordering, counseling/education, referring/communicating and documentation. Created using voice recognition software, some errors may have occurred. Corrections may be performed at a later date. 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 Affected earDisp: 5 mLRfl: 0 CT NECK SOFT TISSUE W IVCON [[id number]] Order #: [id number] FUTURE [] iv contrast (will be provided with radiology test)Inject 1 each intravenously one time only for [address] Neck W IVCON No IV access, insert saline lock prior to the sedation, infusion, injection for imaging exam. Discontinue saline lock post exam. If Pt. has a central line or IVAD, may access for administration according to line specific nursing protocol. Once exam is complete flush line and de-access according to line specific nursing protocol in the CT contrast administration guidelines leah (more content not included)... Normal [facility] .Auto Diffon 10-12-2024 Basophil, Absolute 0.1 10 3/mcL Normal 0.0-0.2 [facility] Comment on above: Performed By: #### C BC, ADIFF, ANEU, A1C, PSA, CMP, TSHR, GFR, LIPID, FT4 #### [address] [address] Basophils/100 WBC (Bld) 0.8 % Normal 0.0-2.5 [facility] Comment on above: Performed By: #### C BC, ADIFF, ANEU, A1C, PSA, CMP, TSHR, GFR, LIPID, FT4 #### [address] [address] Eosinophil, Absolute 0.2 10 3/mcL Normal 0.0-0.7 [facility] Comment on above: Performed By: #### C BC, ADIFF, ANEU, A1C, PSA, CMP, TSHR, GFR, LIPID, FT4 #### [address] [address] Eosinophils/100 WBC (Bld) 3.5 % Normal 0.0-7.0 [facility] Comment on above: Performed By: #### C BC, ADIFF, ANEU, A1C, PSA, CMP, TSHR, GFR, LIPID, FT4 #### [address] [address] Lymphocyte, Absolute 2.9 10 3/mcL Normal 0.9-4.3 [facility] Comment on above: Performed By: #### C BC, ADIFF, ANEU, A1C, PSA, CMP, TSHR, GFR, LIPID, FT4 #### [address] [address] Lymphocytes/100 WBC (Bld) 44.8 % High 20.0-40.0 [facility] Comment on above: Performed By: #### C BC, ADIFF, ANEU, A1C, PSA, CMP, TSHR, GFR, LIPID, FT4 #### [address] [address] Monocyte, Absolute 0.7 10 3/mcL Normal 0.1-1.4 [facility] Comment on above: Performed By: #### C BC, ADIFF, ANEU, A1C, PSA, CMP, TSHR, GFR, LIPID, FT4 #### [address] [address] Monocytes/100 WBC (Bld) 10.7 % Normal 2.0-13.0 [facility] Comment on above: Performed By: #### C BC, ADIFF, ANEU, A1C, PSA, CMP, TSHR, GFR, LIPID, FT4 #### [address] [address] Neutrophils/100 WBC (Bld) 40.2 % Low 50.0-75.0 [facility] Comment on above: Performed By: #### C BC, ADIFF, ANEU, A1C, PSA, CMP, TSHR, GFR, LIPID, FT4 #### [address] [address] .GFRon 10-12-2024 GFR 70 ml/min/1.73sqm Normal [facility] Comment on above: Result Comment: GFR Population mean for , Non- Americans Ages 20-29 = 116 mL/min/1.73 sq.m. Ages 30-39 = 107 mL/min/1.73 sq.m. Ages 40-49 = 99 mL/min/1.73 sq.m. Ages 50-59 = 93 mL/min/1.73 sq.m. Ages 60-69 = 85 mL/min/1.73 sq.m. Ages 70+ = 75 mL/min/1.73 sq.m. Chronic Kidney Disease: Less than 60 mL/min/1.73 square meters End Stage Renal Disease: Less than 15 mL/min/1.73 square meters Performed By: #### C BC, ADIFF, ANEU, A1C, PSA, CMP, TSHR, GFR, LIPID, FT4 #### [address] [address] GFR Non- 58 ml/min/1.73sqm Normal [facility] Comment on above: Result Comment: GFR Population mean for , Non- Americans Ages 20-29 = 116 mL/min/1.73 sq.m. Ages 30-39 = 107 mL/min/1.73 sq.m. Ages 40-49 = 99 mL/min/1.73 sq.m. Ages 50-59 = 93 mL/min/1.73 sq.m. Ages 60-69 = 85 mL/min/1.73 sq.m. Ages 70+ = 75 mL/min/1.73 sq.m. Chronic Kidney Disease: Less than 60 mL/min/1.73 square meters End Stage Renal Disease: Less than 15 mL/min/1.73 square meters Performed By: #### C BC, ADIFF, ANEU, A1C, PSA, CMP, TSHR, GFR, LIPID, FT4 #### [address] [address] .NEUABSon 10-12-2024 Neutrophil, Absolute 2.6 10 3/mcL Normal 2.3-8.1 [facility] Comment on above: Performed By: #### C BC, ADIFF, ANEU, A1C, PSA, CMP, TSHR, GFR, LIPID, FT4 #### [address] [address] A1Con 10-12-2024 Glucose [Mass/Vol] 148 mg/dL Normal [facility] Comment on above: Result Comment: Yesenia mated Average Glucose calculated by equation ((28.7xA1C)-46.7) Estimated average glucose (eAG) is a calculated value from Hemoglobin A1C and is labor union business representative of the average blood glucose level in the last 2-3 month period. Normal range: less than 114 mg/dL Performed By: #### C BC, ADIFF, ANEU, A1C, PSA, CMP, TSHR, GFR, LIPID, FT4 #### [address] [address] HbA1c (Bld) [Mass fraction] 6.8 % High 4.3-6.4 [facility] Comment on above: Performed By: #### C BC, ADIFF, ANEU, A1C, PSA, CMP, TSHR, GFR, LIPID, FT4 #### [address] [address] CBCon 10-12-2024 Erythrocyte distribution width (RBC) [Ratio] 14.4 % Normal 11.5-15.5 [facility] Comment on above: Performed By: #### C BC, ADIFF, ANEU, A1C, PSA, CMP, TSHR, GFR, LIPID, FT4 #### [address] [address] Hematocrit (Bld) [Volume fraction] 51.4 % Normal 40.0-52.0 [facility] Comment on above: Performed By: #### C BC, ADIFF, ANEU, A1C, PSA, CMP, TSHR, GFR, LIPID, FT4 #### [address] [address] Hgb 17.8 G/dL High 13.0-17.5 [facility] Comment on above: Performed By: #### C BC, ADIFF, ANEU, A1C, PSA, CMP, TSHR, GFR, LIPID, FT4 #### [address] [address] MCH (RBC) [Entitic mass] 31.0 pg Normal 27.0-33.0 [facility] Comment on above: Performed By: #### C BC, ADIFF, ANEU, A1C, PSA, CMP, TSHR, GFR, LIPID, FT4 #### [address] [address] MCHC 34.6 G/dL Normal 32.0-36.0 [facility] Comment on above: Performed By: #### C BC, ADIFF, ANEU, A1C, PSA, CMP, TSHR, GFR, LIPID, FT4 #### [address] [address] MCV (RBC) [Entitic vol] 89.6 fL Normal 81.0-100.0 [facility] Comment on above: Performed By: #### C BC, ADIFF, ANEU, A1C, PSA, CMP, TSHR, GFR, LIPID, FT4 #### [address] [address] Platelet 170 10 3/mcL Normal 150-450 [facility] [facility] Comment on above: Performed By: #### C BC, ADIFF, ANEU, A1C, PSA, CMP, TSHR, GFR, LIPID, [id number] #### [address] [address] Platelet mean volume (Bld) [Entitic vol] 7.9 fL Normal 6.4-10.5 [facility] Comment on above: Performed By: #### C BC, ADIFF, ANEU, A1C, PSA, CMP, TSHR, GFR, LIPID, [id number] #### [address] [address] RBC 5.74 10 6/mcL Normal 4.50-6.00 [facility] Comment on above: Performed By: #### C BC, ADIFF, ANEU, A1C, PSA, CMP, TSHR, GFR, LIPID, [id number] #### [address] [address] WBC 6.4 10 3/mcL Normal 4.5-10.8 [facility] Comment on above: Performed By: #### C BC, ADIFF, ANEU, A1C, PSA, CMP, TSHR, GFR, LIPID, [id number] #### [address] [address] CMPon 10-12-2024 Calcium [Mass/Vol] 9.6 mg/dL Normal 8.4-10.2 [facility] Comment on above: Performed By: #### C BC, ADIFF, ANEU, A1C, PSA, CMP, TSHR, GFR, LIPID, [id number] #### [address] [address] Albumin Level 3.3 G/dL Low 3.4-4.8 [facility] Comment on above: Performed By: #### C BC, ADIFF, ANEU, A1C, PSA, CMP, TSHR, GFR, LIPID, [id number] #### [address] [address] Albumin/Globulin [Mass ratio] 0.8 {ratio} Low 1.1-2.5 [facility] Comment on above: Performed By: #### C BC, ADIFF, ANEU, A1C, PSA, CMP, TSHR, GFR, LIPID, [id number] #### [address] [address] ALP [Catalytic activity/Vol] 73 U/L Normal 40-135 [facility] Comment on above: Performed By: #### C BC, ADIFF, ANEU, A1C, PSA, CMP, TSHR, GFR, LIPID, [id number] #### [address] [address] ALT [Catalytic activity/Vol] 38 U/L Normal 16-63 [facility] Comment on above: Performed By: #### C BC, ADIFF, ANEU, A1C, PSA, CMP, TSHR, GFR, LIPID, [id number] #### [address] [address] AST [Catalytic activity/Vol] 29 U/L Normal 10-40 [facility] Comment on above: Performed By: #### C BC, ADIFF, ANEU, A1C, PSA, CMP, TSHR, GFR, LIPID, [id number] #### [address] [address] Bili Total 0.7 mg/dL Normal 0.2-1.0 [facility] Comment on above: Result Comment: Use of this assay is not recommended for patients undergoing treatment with eltrombopag due to the potential for falsely elevated results. Performed By: #### C BC, ADIFF, ANEU, A1C, PSA, CMP, TSHR, GFR, LIPID, [id number] #### [place] [address] BUN/Creatinine Ratio 10 ratio Normal 7-27 [facility] Comment on above: Performed By: #### C BC, ADIFF, ANEU, A1C, PSA, CMP, TSHR, GFR, LIPID, [id number] #### [address] [address] Chloride [Moles/Vol] 100 mmol/L Normal 98-107 [facility] Comment on above: Performed By: #### C BC, ADIFF, ANEU, A1C, PSA, CMP, TSHR, GFR, LIPID, [id number] #### [address] [address] CO2 [Moles/Vol] 32 mmol/L High 23-31 [facility] Comment on above: Performed By: #### C BC, ADIFF, ANEU, A1C, PSA, CMP, TSHR, GFR, LIPID, [id number] #### [address] [address] Creatinine [Mass/Vol] 1.21 mg/dL Normal 0.70-1.30 [facility] Comment on above: Result Comment: Test ing performed on Siemens Dimension EXL analyzer using a modified kinetic Natalie technique. Performed By: #### C BC, ADIFF, ANEU, A1C, PSA, CMP, TSHR, GFR, LIPID, [id number] #### [place] [address] Electrolyte Balance 4.0 mEq/L Normal 4.0-15.0 [facility] Comment on above: Performed By: #### C BC, ADIFF, ANEU, A1C, PSA, CMP, TSHR, GFR, LIPID, [id number] #### [address] [address] Globulin 3.9 G/dL Normal [facility] Comment on above: Performed By: #### C BC, ADIFF, ANEU, A1C, PSA, CMP, TSHR, GFR, LIPID, [id number] #### [address] [address] Glucose [Mass/Vol] 87 mg/dL Normal 83-110 [facility] Comment on above: Performed By: #### C BC, ADIFF, ANEU, A1C, PSA, CMP, TSHR, GFR, LIPID, [id number] #### [address] [address] Potassium [Moles/Vol] 4.2 mmol/L Normal 3.5-5.1 [facility] Comment on above: Performed By: #### C BC, ADIFF, ANEU, A1C, PSA, CMP, TSHR, GFR, LIPID, [id number] #### [address] [address] Sodium [Moles/Vol] 136 mmol/L Normal 136-145 [facility] Comment on above: Performed By: #### C BC, ADIFF, ANEU, A1C, PSA, CMP, TSHR, GFR, LIPID, [id number] #### [address] [address] Total Protein 7.2 G/dL Normal 6.4-8.2 [facility] Comment on above: Performed By: #### C BC, ADIFF, ANEU, A1C, PSA, CMP, TSHR, GFR, LIPID, [id number] #### [address] [address] Urea nitrogen [Mass/Vol] 12 mg/dL Normal 7-18 [facility] Comment on above: Performed By: #### C BC, ADIFF, ANEU, A1C, PSA, CMP, TSHR, GFR, LIPID, [id number] #### [address] [address] FT4on 10-12-2024 Free T4 [Mass/Vol] 0.98 ng/dL Normal 0.76-1.46 [facility] Comment on above: Order Comment: Order ed by Discern Performed By: #### C BC, ADIFF, ANEU, A1C, PSA, CMP, TSHR, GFR, LIPID, [id number] #### [address] [place] [id number] [place], [place] [address] LABORATORYOrdered By: SYSTEM SYSTEM on 10-12-2024 Albumin BCP dye [Mass/Vol] 3.3 G/dL Low 3.4 - 4.8 G/dL AO ADM SS Albumin/Globulin [Mass ratio] 0.8 {ratio} Low 1.1 - 2.5 ratio AO ADM SS ALP [Catalytic activity/Vol] 73 U/L Normal 40 - 135 U/L AO ADM SS ALT With P-5'-P [Catalytic activity/Vol] 38 U/L Normal 16 - 63 U/L AO ADM SS AST With P-5'-P [Catalytic activity/Vol] 29 U/L Normal 10 - 40 U/L AO ADM SS Basophils (Bld) [#/Vol] 0.1 103/mcL Normal 0.0 - 0.2 10^3/mcL AO Workflow SS Basophils/100 WBC (Bld) 0.8 % Normal 0.0 - 2.5 % AO Workflow SS Bilirubin [Mass/Vol] 0.7 mg/dL Normal 0.2 - 1 .0 mg/dL AO ADM SS Comment on above: Interpretive Data: U se of this assay is not recommended for patients undergoing treatment with eltrombopag due to the potential for falsely elevated results. Calcium [Mass/Vol] 9.6 mg/dL Normal 8.4 - 10. 2 mg/dL AO ADM SS Chloride [Moles/Vol] 100 mmol/L Normal 98 - 10 7 mmol/L AO ADM SS CO2 [Moles/Vol] 32 mmol/L High 23 - 31 mmol/L AO ADM SS Creatinine [Mass/Vol] 1.21 mg/dL Normal 0.70 - 1.30 mg/dL AO ADM SS Comment on above: Interpretive Data: T esting performed on Siemens Dimension EXL analyzer using a modified kinetic Natalie technique. Electrolyte Balance 4.0 mEq/L Normal 4.0 - 15 .0 mEq/L AO ADM SS Eosinophil, Absolute 0.2 103/mcL Normal 0.0 - 0 .7 10^3/mcL AO Workflow SS Eosinophils/100 WBC (Bld) 3.5 % Normal 0.0 - 7.0 % AO Workflow SS Erythrocyte distribution width (RBC) [Ratio] 14.4 % Normal 11.5 - 15.5 % AO Workflow SS Free T4 [Mass/Vol] 0.98 ng/dL Normal 0.76 - 1. 46 ng/dL AO ADM SS GFR/1.73 sq M.predicted among blacks MDRD (S/P/Bld) [Vol rate/Area] 70 ml/min/1.73sqm Invalid Interpretation Code AO Chemistry S Comment on above: Interpretive Data: GFR Population mean for , Non- Americans Ages 20-29 = 116 mL/min/1.73 sq.m. Ages 30-39 = 107 mL/min/1.73 sq.m. Ages 40-49 = 99 mL/min/1.73 sq.m. Ages 50-59 = 93 mL/min/1.73 sq.m. Ages 60-69 = 85 mL/min/1.73 sq.m. Ages 70+ = 75 mL/min/1.73 sq.m. Chronic Kidney Disease: Less than 60 mL/min/1.73 square meters End Stage Renal Disease: Less than 15 mL/min/1.73 square meters GFR/1.73 sq M.predicted among non-blacks MDRD (S/P/Bld) [Vol rate/Area] 58 ml/min/1.73sqm Invalid Interpretation Code AO Chemistry S Comment on above: Interpretive Data: GFR Population mean for , Non- Americans Ages 20-29 = 116 mL/min/1.73 sq.m. Ages 30-39 = 107 mL/min/1.73 sq.m. Ages 40-49 = 99 mL/min/1.73 sq.m. Ages 50-59 = 93 mL/min/1.73 sq.m. Ages 60-69 = 85 mL/min/1.73 sq.m. Ages 70+ = 75 mL/min/1.73 sq.m. Chronic Kidney Disease: Less than 60 mL/min/1.73 square meters End Stage Renal Disease: Less than 15 mL/min/1.73 square meters Globulin 3.9 G/dL Invalid Interpretation Code AO ADM SS Glucose [Mass/Vol] 148 mg/dL Invalid Interpretation Code AO Chemistry S Comment on above: Interpretive Data: E stimated average glucose (eAG) is a calculated value from Hemoglobin A1C and is labor union business representative of the average blood glucose level in the last 2-3 month period. Normal range: less than 114 mg/dL Glucose [Mass/Vol] 87 mg/dL Normal 83 - 110 mg/dL AO ADM SS HbA1c (Bld) [Mass fraction] 6.8 % High 4.3 - 6.4 % AO ADM SS Hematocrit (Bld) [Volume fraction] 51.4 % Normal 40.0 - 52.0 % AO Workflow SS Hemoglobin (Bld) [Mass/Vol] 17.8 G/dL High 13.0 - 17.5 G/dL AO Workflow SS Lymphocytes (Bld) [#/Vol] 2.9 103/mcL Normal 0.9 - 4.3 10^3/mcL AO Workflow SS Lymphocytes/100 WBC (Bld) 44.8 % High 20.0 - 40.0 % AO Workflow SS MCH (RBC) [Entitic mass] 31.0 pg Normal 27.0 - 33.0 pg AO Workflow SS MCHC 34.6 G/dL Normal 32.0 - 36.0 G/dL AO Workflow SS MCV (RBC) [Entitic vol] 89.6 fL Normal 81.0 - 100.0 fL AO Workflow SS Monocytes (Bld) [#/Vol] 0.7 103/mcL Normal 0.1 - 1.4 10^3/mcL AO Workflow SS Monocytes/100 WBC (Bld) 10.7 % Normal 2.0 - 13.0 % AO Workflow SS Neutrophils (Bld) [#/Vol] 2.6 103/mcL Normal 2.3 - 8.1 10^3/mcL AO Workflow SS Neutrophils/100 WBC (Bld) 40.2 % Low 50.0 - 75.0 % AO Workflow SS Platelet mean volume (Bld) [Entitic vol] 7.9 fL Normal 6.4 - 10.5 fL AO Workflow SS Platelets (Bld) [#/Vol] 170 103/mcL Normal 150 - 450 10^3/mcL AO Workflow SS Potassium [Moles/Vol] 4.2 mmol/L Normal 3.5 - 5.1 mmol/L AO ADM SS Prostate specific Ag [Mass/Vol] 0.74 ng/mL Normal 0.00 - 4.00 ng/mL AO ADM SS Protein [Mass/Vol] 7.2 G/dL Normal 6.4 - 8.2 G/dL AO ADM SS RBC (Bld) [#/Vol] 5.74 106/mcL Normal 4.50 - 6.0 0 10^6/mcL AO Workflow SS Sodium [Moles/Vol] 136 mmol/L Normal 136 - 145 mmol/L AO ADM SS TSH Qn 4.30 m[IU]/L High 0.36 - 3.74 mcIU/mL AO ADM SS Urea nitrogen [Mass/Vol] 12 mg/dL Normal 7 - 18 mg/dL AO ADM SS Urea nitrogen/Creatinine [Mass ratio] 10 ratio Normal 7 - 27 ratio AO ADM SS WBC (Bld) [#/Vol] 6.4 103/mcL Normal 4.5 - 10.8 10^3/mcL AO Workflow SS LABORATORYOrdered By: Herlinda Mcclure on 10-12-2024 Cholesterol [Mass/Vol] 164 mg/dL Normal 0 - 200 mg/dL AO ADM SS Comment on above: Interpretive Data: C holesterol Reference Interval: Less than 200 Desirable 200-239 Borderline high risk 240 and above High risk Cholesterol in HDL [Mass/Vol] 32 mg/dL Low 40 - 60 mg/dL AO ADM SS Cholesterol in LDL [Mass/Vol] 96 mg/dL Normal 0 - 130 mg/dL AO ADM SS Triglyceride [Mass/Vol] 178 mg/dL High 0 - 150 mg/dL AO ADM SS Comment on above: Interpretive Data: T riglyceride Reference Interval: Less than 150 Normal 150-199 Borderline high risk 200-499 High risk 500 or higher Very high risk LIPIDon 10-12-2024 Cholesterol [Mass/Vol] 164 mg/dL Normal 0-200 [facility] Comment on above: Result Comment: Chol esterol Reference Interval: Less than 200 Desirable 200-239 Borderline high risk 240 and above High risk Performed By: #### C BC, ADIFF, ANEU, A1C, PSA, CMP, TSHR, GFR, LIPID, [id number] #### [facility] [address] [place], [place] [address] Cholesterol in HDL [Mass/Vol] 32 mg/dL Low 40-60 [facility] Comment on above: Performed By: #### C BC, ADIFF, ANEU, A1C, PSA, CMP, TSHR, GFR, LIPID, [id number] #### [address] [address] Cholesterol in LDL [Mass/Vol] 96 mg/dL Normal 0-130 [facility] Comment on above: Performed By: #### C BC, ADIFF, ANEU, A1C, PSA, CMP, TSHR, GFR, LIPID, [id number] #### [address] [address] Triglyceride [Mass/Vol] 178 mg/dL High 0-150 [facility] Comment on above: Result Comment: Trig lyceride Reference Interval: Less than 150 Normal 150-199 Borderline high risk 200-499 High risk 500 or higher Very high risk Performed By: #### C BC, ADIFF, ANEU, A1C, PSA, CMP, TSHR, GFR, LIPID, [id number] #### [address] [address] PSAon 10-12-2024 Prostate Specific Antigen 0.74 ng/mL Normal 0.00-4.00 [facility] Comment on above: Performed By: #### C BC, ADIFF, ANEU, A1C, PSA, CMP, TSHR, GFR, LIPID, [id number] #### [place] [id number] TSHRon 10-12-2024 TSH Qn 4.30 m[IU]/L High 0.36-3.74 [facility] Comment on above: Performed By: #### C BC, ADIFF, ANEU, A1C, PSA, CMP, TSHR, GFR, LIPID, [id number] #### [address] [address] Telephone Encounteron 2023 Table Worker Authentication Interface Message Text Dyllan. 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 Clemencia does not have any appointments in 2 weeks but Marilee has space in Nov. This is the pt we got referral from ratna then pt no showed and then never picked up the phone. Referral in [employer] Normal [employer] .Manual Diffon 08-04-2024 Bands 3.0 % Normal 0.0-5.0 [facility] Comment on above: Performed By: #### C BC, ADIFF, ANEU, A1C, PSA, CMP, TSHR, GFR, LIPID, [id number] #### [address] [address] Basophil %, Manual 0.0 % Normal 0.0-2.5 [facility] Comment on above: Performed By: #### C BC, ADIFF, ANEU, A1C, PSA, CMP, TSHR, GFR, LIPID, [id number] #### [address] [address] Basophil, Abs Manual 0.0 10 3/mcL Normal 0.0-0.2 [facility] Comment on above: Performed By: #### C BC, ADIFF, ANEU, A1C, PSA, CMP, TSHR, GFR, LIPID, [id number] #### [place] [address] Eosinophil %, Manual 2.0 % Normal 0.0-7.0 [facility] Comment on above: Performed By: #### C BC, ADIFF, ANEU, A1C, PSA, CMP, TSHR, GFR, LIPID, [id number] #### [address] [address] Eosinophil, Abs Manual 0.2 10 3/mcL Normal 0.0-0.7 [facility] Comment on above: Performed By: #### C BC, ADIFF, ANEU, A1C, PSA, CMP, TSHR, GFR, LIPID, [id number] #### [address] [address] Lymphocyte %, Manual 32.0 % Normal 20.0-40.0 [facility] Comment on above: Performed By: #### C BC, ADIFF, ANEU, A1C, PSA, CMP, TSHR, GFR, LIPID, [id number] #### [address] [address] Lymphocyte, Abs Manual 3.2 10 3/mcL Normal 0.9-4.3 [facility] Comment on above: Performed By: #### C BC, ADIFF, ANEU, A1C, PSA, CMP, TSHR, GFR, LIPID, [id number] #### [address] [address] Monocyte %, Manual 4.0 % Normal 2.0-13.0 [facility] Comment on above: Performed By: #### C BC, ADIFF, ANEU, A1C, PSA, CMP, TSHR, GFR, LIPID, [id number] #### [address] [address] Monocyte, Abs Manual 0.4 10 3/mcL Normal 0.1-1.4 [facility] Comment on above: Performed By: #### C BC, ADIFF, ANEU, A1C, PSA, CMP, TSHR, GFR, LIPID, [id number] #### [address] [address] Neutrophil %, Manual 59.0 % Normal 50.0-75.0 [facility] Comment on above: Performed By: #### C BC, ADIFF, ANEU, A1C, PSA, CMP, TSHR, GFR, LIPID, [id number] #### [address] [address] Neutrophil, Abs Manual 6.1 10 3/mcL Normal 2.3-8.1 [facility] Comment on above: Performed By: #### C BC, ADIFF, ANEU, A1C, PSA, CMP, TSHR, GFR, LIPID, [id number] #### [address] [address] Nucleated RBC 0.0 /100 WBC Normal [facility] Comment on above: Performed By: #### C BC, ADIFF, ANEU, A1C, PSA, CMP, TSHR, GFR, LIPID, [id number] #### [address] [address] .Morphon 08-04-2024 Differential Comment See Below Normal [facility] Comment on above: Result Comment: Manu bennie Differential Performed. Path review is not indicated. Performed By: #### C BC, ADIFF, ANEU, A1C, PSA, CMP, TSHR, GFR, LIPID, [id number] #### [address] [address] Platelet Estimate Normal Normal [facility] Comment on above: Performed By: #### C BC, ADIFF, ANEU, A1C, PSA, CMP, TSHR, GFR, LIPID, [id number] #### [place] [id number] [place], [place] [address] RBC morphology finding Nom (Bld) Normal Normal [facility] Comment on above: Performed By: #### C BC, ADIFF, ANEU, A1C, PSA, CMP, TSHR, GFR, LIPID, [id number] #### [address] [address] CBCon 08-04-2024 Erythrocyte distribution width (RBC) [Ratio] 15.4 % Normal 11.5-15.5 [facility] Comment on above: Performed By: #### C BC, ADIFF, ANEU, A1C, PSA, CMP, TSHR, GFR, LIPID, [id number] #### [address] [address] Hematocrit (Bld) [Volume fraction] 51.6 % Normal 40.0-52.0 [facility] Comment on above: Performed By: #### C BC, ADIFF, ANEU, A1C, PSA, CMP, TSHR, GFR, LIPID, [id number] #### [address] [address] Hgb 17.2 G/dL Normal 13.0-17.5 [facility] Comment on above: Performed By: #### C BC, ADIFF, ANEU, A1C, PSA, CMP, TSHR, GFR, LIPID, [id number] #### [address] [address] MCH (RBC) [Entitic mass] 30.8 pg Normal 27.0-33.0 [facility] Comment on above: Performed By: #### C BC, ADIFF, ANEU, A1C, PSA, CMP, TSHR, GFR, LIPID, [id number] #### [address] [address] MCHC 33.3 G/dL Normal 32.0-36.0 [facility] Comment on above: Performed By: #### C BC, ADIFF, ANEU, A1C, PSA, CMP, TSHR, GFR, LIPID, [id number] #### [address] [address] MCV (RBC) [Entitic vol] 92.4 fL Normal 81.0-100.0 [facility] Comment on above: Performed By: #### C BC, ADIFF, ANEU, A1C, PSA, CMP, TSHR, GFR, LIPID, [id number] #### [address] [address] Platelet 268 10 3/mcL Normal 150-450 [facility] Comment on above: Performed By: #### C BC, ADIFF, ANEU, A1C, PSA, CMP, TSHR, GFR, LIPID, [id number] #### [address] [address] Platelet mean volume (Bld) [Entitic vol] 7.9 fL Normal 6.4-10.5 [facility] Comment on above: Performed By: #### C BC, ADIFF, ANEU, A1C, PSA, CMP, TSHR, GFR, LIPID, [id number] #### [address] [address] RBC 5.58 10 6/mcL Normal 4.50-6.00 [facility] Comment on above: Performed By: #### C BC, ADIFF, ANEU, A1C, PSA, CMP, TSHR, GFR, LIPID, [id number] #### [address] [address] WBC 9.9 10 3/mcL Normal 4.5-10.8 [facility] Comment on above: Performed By: #### C BC, ADIFF, ANEU, A1C, PSA, CMP, TSHR, GFR, LIPID, [id number] #### [address] [address] .GFRon 08-03-2024 GFR 75 ml/min/1.73sqm Normal [facility] Comment on above: Result Comment: GFR Population mean for , Non- Americans Ages 20-29 = 116 mL/min/1.73 sq.m. Ages 30-39 = 107 mL/min/1.73 sq.m. Ages 40-49 = 99 mL/min/1.73 sq.m. Ages 50-59 = 93 mL/min/1.73 sq.m. Ages 60-69 = 85 mL/min/1.73 sq.m. Ages 70+ = 75 mL/min/1.73 sq.m. Chronic Kidney Disease: Less than 60 mL/min/1.73 square meters End Stage Renal Disease: Less than 15 mL/min/1.73 square meters Performed By: #### C BC, ADIFF, ANEU, A1C, PSA, CMP, TSHR, GFR, LIPID, FT4 #### [place] [place], [place] [address] GFR Non- 62 ml/min/1.73sqm Normal [facility] Comment on above: Result Comment: GFR Population mean for , Non- Americans Ages 20-29 = 116 mL/min/1.73 sq.m. Ages 30-39 = 107 mL/min/1.73 sq.m. Ages 40-49 = 99 mL/min/1.73 sq.m. Ages 50-59 = 93 mL/min/1.73 sq.m. Ages 60-69 = 85 mL/min/1.73 sq.m. Ages 70+ = 75 mL/min/1.73 sq.m. Chronic Kidney Disease: Less than 60 mL/min/1.73 square meters End Stage Renal Disease: Less than 15 mL/min/1.73 square meters Performed By: #### C BC, ADIFF, ANEU, A1C, PSA, CMP, TSHR, GFR, LIPID, FT4 #### [place] [id number] [place], [place] [address] A1Con 08-03-2024 Glucose [Mass/Vol] 151 mg/dL Normal [facility] Comment on above: Result Comment: Yesenia mated Average Glucose calculated by equation ((28.7xA1C)-46.7) Estimated average glucose (eAG) is a calculated value from Hemoglobin A1C and is labor union business representative of the average blood glucose level in the last 2-3 month period. Normal range: less than 114 mg/dL Performed By: #### C BC, ADIFF, ANEU, A1C, PSA, CMP, TSHR, GFR, LIPID, [id number] #### [address] [address] HbA1c (Bld) [Mass fraction] 6.9 % High 4.3-6.4 [facility] Comment on above: Performed By: #### C BC, ADIFF, ANEU, A1C, PSA, CMP, TSHR, GFR, LIPID, [id number] #### [address] [address] BILAIon 08-03-2024 Bili Indirect 0.5 mg/dL Normal [facility] Comment on above: Performed By: #### C BC, ADIFF, ANEU, A1C, PSA, CMP, TSHR, GFR, LIPID, [id number] #### [address] [address] Bili Direct 0.1 mg/dL Normal 0.0-0.2 [facility] Comment on above: Result Comment: Use of this assay is not recommended for patients undergoing treatment with eltrombopag due to the potential for falsely elevated results. Performed By: #### C BC, ADIFF, ANEU, A1C, PSA, CMP, TSHR, GFR, LIPID, [id number] #### [address] [address] CKon 08-03-2024 CK [Catalytic activity/Vol] 101 U/L Normal 39-308 [facility] Comment on above: Performed By: #### C BC, ADIFF, ANEU, A1C, PSA, CMP, TSHR, GFR, LIPID, [id number] #### [address] [address] CMPon 08-03-2024 Albumin Level 3.9 G/dL Normal 3.4-4.8 [facility] Comment on above: Performed By: #### C BC, ADIFF, ANEU, A1C, PSA, CMP, TSHR, GFR, LIPID, [id number] #### [address] [address] Albumin/Globulin [Mass ratio] 1.2 {ratio} Normal 1.1-2.5 [facility] Comment on above: Performed By: #### C BC, ADIFF, ANEU, A1C, PSA, CMP, TSHR, GFR, LIPID, [id number] #### [address] [address] ALP [Catalytic activity/Vol] 95 U/L Normal 40-135 [facility] Comment on above: Performed By: #### C BC, ADIFF, ANEU, A1C, PSA, CMP, TSHR, GFR, LIPID, [id number] #### [address] [address] ALT [Catalytic activity/Vol] 38 U/L Normal 16-63 [facility] Comment on above: Performed By: #### C BC, ADIFF, ANEU, A1C, PSA, CMP, TSHR, GFR, LIPID, [id number] #### [address] [address] AST [Catalytic activity/Vol] 27 U/L Normal 10-40 [facility] Comment on above: Performed By: #### C BC, ADIFF, ANEU, A1C, PSA, CMP, TSHR, GFR, LIPID, [id number] #### [address] [address] Bili Total 0.6 mg/dL Normal 0.2-1.0 [facility] Comment on above: Result Comment: Use of this assay is not recommended for patients undergoing treatment with eltrombopag due to the potential for falsely elevated results. Performed By: #### C BC, ADIFF, ANEU, A1C, PSA, CMP, TSHR, GFR, LIPID, [id number] #### [address] [address] BUN/Creatinine Ratio 16 ratio Normal 7-27 [facility] Comment on above: Performed By: #### C BC, ADIFF, ANEU, A1C, PSA, CMP, TSHR, GFR, LIPID, [id number] #### [address] [address] Calcium [Mass/Vol] 10.1 mg/dL Normal 8.4-10.2 [facility] Comment on above: Performed By: #### C BC, ADIFF, ANEU, A1C, PSA, CMP, TSHR, GFR, LIPID, [id number] #### [address] [address] Chloride [Moles/Vol] 100 mmol/L Normal 98-107 [facility] Comment on above: Performed By: #### C BC, ADIFF, ANEU, A1C, PSA, CMP, TSHR, GFR, LIPID, [id number] #### [address] [address] CO2 [Moles/Vol] 31 mmol/L Normal 23-31 [facility] Comment on above: Performed By: #### C BC, ADIFF, ANEU, A1C, PSA, CMP, TSHR, GFR, LIPID, [id number] #### [place] [address] Creatinine [Mass/Vol] 1.14 mg/dL Normal 0.70-1.30 [facility] Comment on above: Result Comment: Test ing performed on Siemens Dimension EXL analyzer using a modified kinetic Natalie technique. Performed By: #### C BC, ADIFF, ANEU, A1C, PSA, CMP, TSHR, GFR, LIPID, [id number] #### [address] [address] Electrolyte Balance 6.0 mEq/L Normal 4.0-15.0 [facility] Comment on above: Performed By: #### C BC, ADIFF, ANEU, A1C, PSA, CMP, TSHR, GFR, LIPID, [id number] #### [address] [address] Globulin 3.3 G/dL Normal [facility] Comment on above: Performed By: #### C BC, ADIFF, ANEU, A1C, PSA, CMP, TSHR, GFR, LIPID, [id number] #### [place] [address] Glucose [Mass/Vol] 101 mg/dL Normal 83-110 [facility] Comment on above: Performed By: #### C BC, ADIFF, ANEU, A1C, PSA, CMP, TSHR, GFR, LIPID, [id number] #### [address] [address] Potassium [Moles/Vol] 4.5 mmol/L Normal 3.5-5.1 [facility] Comment on above: Performed By: #### C BC, ADIFF, ANEU, A1C, PSA, CMP, TSHR, GFR, LIPID, [id number] #### [address] [address] Sodium [Moles/Vol] 137 mmol/L Normal 136-145 [facility] Comment on above: Performed By: #### C BC, ADIFF, ANEU, A1C, PSA, CMP, TSHR, GFR, LIPID, [id number] #### [address] [address] Total Protein 7.2 G/dL Normal 6.4-8.2 [facility] Comment on above: Performed By: #### C BC, ADIFF, ANEU, A1C, PSA, CMP, TSHR, GFR, LIPID, [id number] #### [address] [address] Urea nitrogen [Mass/Vol] 18 mg/dL Normal 7-18 [facility] Comment on above: Performed By: #### C BC, ADIFF, ANEU, A1C, PSA, CMP, TSHR, GFR, LIPID, [id number] #### [address] [address] LABORATORYOrdered By: SYSTEM SYSTEM on 08-03-2024 Albumin BCP dye [Mass/Vol] 3.9 G/dL Normal 3.4 - 4.8 G/dL AO ADM SS Albumin/Globulin [Mass ratio] 1.2 {ratio} Normal 1.1 - 2.5 ratio AO ADM SS ALP [Catalytic activity/Vol] 95 U/L Normal 40 - 135 U/L AO ADM SS ALT With P-5'-P [Catalytic activity/Vol] 38 U/L Normal 16 - 63 U/L AO ADM SS AST With P-5'-P [Catalytic activity/Vol] 27 U/L Normal 10 - 40 U/L AO ADM SS Bilirubin.direct [Mass/Vol] 0.1 mg/dL Normal 0.0 - 0.2 mg/dL AO ADM SS Comment on above: Interpretive Data: U se of this assay is not recommended for patients undergoing treatment with eltrombopag due to the potential for falsely elevated results. Bilirubin.direct [Mass/Vol] 0.5 mg/dL Invalid Interpretation Code AO Chemistry S Calcium [Mass/Vol] 10.1 mg/dL Normal 8.4 - 10. 2 mg/dL AO ADM SS Chloride [Moles/Vol] 100 mmol/L Normal 98 - 10 7 mmol/L AO ADM SS CK [Catalytic activity/Vol] 101 U/L Normal 39 - 308 U/L AO ADM SS CO2 [Moles/Vol] 31 mmol/L Normal 23 - 31 mmol/L AO ADM SS Creatinine [Mass/Vol] 1.14 mg/dL Normal 0.70 - 1.30 mg/dL AO ADM SS Comment on above: Interpretive Data: T esting performed on Siemens Dimension EXL analyzer using a modified kinetic Natalie technique. Electrolyte Balance 6.0 mEq/L Normal 4.0 - 15 .0 mEq/L AO ADM SS GFR/1.73 sq M.predicted among blacks MDRD (S/P/Bld) [Vol rate/Area] 75 ml/min/1.73sqm Invalid Interpretation Code AO Chemistry S Comment on above: Interpretive Data: GFR Population mean for , Non- Americans Ages 20-29 = 116 mL/min/1.73 sq.m. Ages 30-39 = 107 mL/min/1.73 sq.m. Ages 40-49 = 99 mL/min/1.73 sq.m. Ages 50-59 = 93 mL/min/1.73 sq.m. Ages 60-69 = 85 mL/min/1.73 sq.m. Ages 70+ = 75 mL/min/1.73 sq.m. Chronic Kidney Disease: Less than 60 mL/min/1.73 square meters End Stage Renal Disease: Less than 15 mL/min/1.73 square meters GFR/1.73 sq M.predicted among non-blacks MDRD (S/P/Bld) [Vol rate/Area] 62 ml/min/1.73sqm Invalid Interpretation Code AO Chemistry S Comment on above: Interpretive Data: GFR Population mean for , Non- Americans Ages 20-29 = 116 mL/min/1.73 sq.m. Ages 30-39 = 107 mL/min/1.73 sq.m. Ages 40-49 = 99 mL/min/1.73 sq.m. Ages 50-59 = 93 mL/min/1.73 sq.m. Ages 60-69 = 85 mL/min/1.73 sq.m. Ages 70+ = 75 mL/min/1.73 sq.m. Chronic Kidney Disease: Less than 60 mL/min/1.73 square meters End Stage Renal Disease: Less than 15 mL/min/1.73 square meters Globulin 3.3 G/dL Invalid Interpretation Code AO ADM SS Glucose [Mass/Vol] 101 mg/dL Normal 83 - 110 mg/dL AO ADM SS Glucose [Mass/Vol] 151 mg/dL Invalid Interpretation Code AO Chemistry S Comment on above: Interpretive Data: E stimated average glucose (eAG) is a calculated value from Hemoglobin A1C and is labor union business representative of the average blood glucose level in the last 2-3 month period. Normal range: less than 114 mg/dL HbA1c (Bld) [Mass fraction] 6.9 % High 4.3 - 6.4 % AO ADM SS Immature reticulocytes/Total reticulocytes (Bld) 0.45 IRF Normal 0.20 - 0.46 IRF AO Workflow SS Myoglobin [Mass/Vol] 77.9 ng/mL Normal 3.0 - 1 10.0 ng/mL AH ADM SS Comment on above: Interpretive Data: * *Note - New Reference Range in effect 20 Potassium [Moles/Vol] 4.5 mmol/L Normal 3.5 - 5.1 mmol/L AO ADM SS Protein [Mass/Vol] 7.2 G/dL Normal 6.4 - 8.2 G/dL AO ADM SS Reticulocytes, Auto 1.7 % Normal 0.2 - 2.3 % AO W orkflow SS Sodium [Moles/Vol] 137 mmol/L Normal 136 - 145 mmol/L AO ADM SS Urea nitrogen [Mass/Vol] 18 mg/dL Normal 7 - 18 mg/dL AO ADM SS Urea nitrogen/Creatinine [Mass ratio] 16 ratio Normal 7 - 27 ratio AO ADM SS Laboratory - Chemistry and C hemistry - challengeOrdered By: SYSTEM SYSTEM on 08-03-2024 Bilirubin [Mass/Vol] 0.6 mg/dL Normal 0.2 - 1 .0 mg/dL AO ADM SS Comment on above: Interpretive Data: U se of this assay is not recommended for patients undergoing treatment with eltrombopag due to the potential for falsely elevated results. MYOSon 08-03-2024 Myoglobin [Mass/Vol] 77.9 ng/mL Normal 3.0-110.0 [facility] Comment on above: Result Comment: No te - New Reference Range in effect 20 Performed By: #### C BC, ADIFF, ANEU, A1C, PSA, CMP, TSHR, GFR, LIPID, FT4 #### [address] [address] RETO (AO)on 08-03-2024 Immature Retic Fraction 0.45 IRF Normal 0.20-0.46 [facility] Comment on above: Performed By: #### C BC, ADIFF, ANEU, A1C, PSA, CMP, TSHR, GFR, LIPID, FT4 #### [address] [address] Reticulocytes, Auto 1.7 % Normal 0.2-2.3 [facility] Comment on above: Performed By: #### C BC, ADIFF, ANEU, A1C, PSA, CMP, TSHR, GFR, LIPID, FT4 #### [address] [address] Telephone Encounteron 2023 Table Worker Authentication Interface Message Text Dr. Khanna actually wants to see this pt in 1/2 weeks. Scheduled pt at [place] 07/15. LVM to make aware. Normal The Spectrase[employer] System CBC panel Auto (Bld)on 04-30 Erythrocyte distribution width (RBC) [Ratio] 13.2 % Normal 11.5-15.0 [facility] Comment on above: Order Comment: Speci men Type: BLOOD SPECIMENOrdering Facility: [facility] Address: [address] [place] [address] Performed By: #### 5 8410-2 ####[facility]ORYCLIA [id number] [address] [place] Hematocrit (Bld) [Volume fraction] 41.6 % Normal 39.0-51.0 [facility] Comment on above: Order Comment: Speci men Type: BLOOD SPECIMENOrdering Facility: [facility] Address: [address] [place] [address] Performed By: #### 5 8410-2 ####[facility]ORATORYCLIA [id number] [place] [address] [place] Hemoglobin (Bld) [Mass/Vol] 13.9 g/dL Normal 13.0-17.0 [facility] Comment on above: Order Comment: Speci men Type: BLOOD SPECIMENOrdering Facility: [facility] Address: [address] [place] [address] Performed By: #### 5 8410-2 ####[facility] LABORATORYCLIA [id number] [address] [place] MCH (RBC) [Entitic mass] 30.8 pg Normal 26.0-34.0 [facility] Comment on above: Order Comment: Speci men Type: BLOOD SPECIMENOrdering Facility: [facility] Address: [address] [place] [address] Performed By: #### 5 8410-2 ####[facility] LABORATORYCLIA [id number] [address] [place] MCHC (RBC) [Mass/Vol] 33.4 g/dL Normal 30.5-36.0 [facility] Comment on above: Order Comment: Speci men Type: BLOOD SPECIMENOrdering Facility: [facility] Address: [address] [place] [address] Performed By: #### 5 8410-2 ####[facility] LABORATORYCLIA [id number] [address] [place] [facility] MCV (RBC) [Entitic vol] 92.0 fL Normal 80.0-100.0 [facility] Comment on above: Order Comment: Speci men Type: BLOOD SPECIMENOrdering Facility: [facility] Address: [address] [place] [address] Performed By: #### 5 8410-2 ####[facility] LABORATORYCLIA [id number] [place] [id number] [place] Nucleated RBC (Bld) [#/Vol] 10*3/uL Normal <0.01 [facility] Comment on above: Order Comment: Speci men Type: BLOOD SPECIMENOrdering Facility: [facility] Address: [address] [place] [address] Performed By: #### 5 8410-2 ####[facility] LABORATORYCLIA [id number] [place] [address] [place] Platelet mean volume (Bld) [Entitic vol] 9.3 fL Normal 9.0-12.7 [facility] Comment on above: Order Comment: Speci men Type: BLOOD SPECIMENOrdering Facility: [facility] Address: [address] [place] [address] Performed By: #### 5 8410-2 ####[facility] LABORATORYCLIA [id number] [place] [address] [place] Platelets (Bld) [#/Vol] 245 10*3/uL Normal 150-400 [facility] Comment on above: Order Comment: Speci men Type: BLOOD SPECIMENOrdering Facility: [facility] Address: [address] [place] [address] Performed By: #### 5 8410-2 ####[facility] LABORATORYCLIA [id number] [place] [id number] [place] RBC (Bld) [#/Vol] 4.52 10*6/uL Normal 4.20-6.00 [facility] Comment on above: Order Comment: Speci men Type: BLOOD SPECIMENOrdering Facility: [facility] Address: [address] [place] [address] Performed By: #### 5 8410-2 ####[facility]ORATORYCLIA [id number] [place] [id number] [place] WBC (Bld) [#/Vol] 7.07 10*3/uL Normal 3.70-11.00 [facility] Comment on above: Order Comment: Saira jade Type: BLOOD SPECIMENOrdering Facility: [facility] Address: [address] [place] [address] Performed By: #### 5 8410-2 ####[facility] LABORATORYCLIA [id number] [place] [address] [facility] CNDSon 04-30-2024 CNDS HNO ID: [id number] Author: KARRI TERRY APRN.RECHARGER Service: Hospital Medicine Author Type: Nurse Practitioner Type: Discharge Summary Filed: 04/30/2024 13:00 Note Text: ----- Attestation signed by Monica Monroe MD at 04/30/2024 4:13 PM [facility] STAFF PHYSICIAN NOTE OF PERSONAL INVOLVEMENT IN CARE I have reviewed the discharge instructions and discharge summary obtained and documented by the nurse practitioner and I personally participated in the gonzalez components. I have discussed the case and management of the patient's care. Staff physician: Monica Monroe MD Department of Hospital Medicine 04/30/2024 ----- DISCHARGE SUMMARY PATIENT NAME: Diana Thurston ADMISSION DATE: 04/27/2024 DISCHARGE DATE: 04/30/2024 ATTENDING PHYSICIAN: Monica Monroe MD Code Status: Full Code PCP: Brad Moody MD Highest Readmission Risk Score: 12 The 30 day readmissions risk score is derived from an internally validated risk model which evaluates patient level characteristics, utilization history, medication orders and lab results up until the day of discharge. Patients with a score of 40 or above are considered highest risk for readmission. Specific patient level drivers will be listed at the bottom of the summary. TRANSITIONS OF CARE CRITICAL ISSUES: GONZALEZ MEDICATION CHANGES: None FOLLOW UP APPOINTMENTS: PCP, GI for biliary stent removal Pulmonary nodule [address] follow up LABS AND PROCEDURES PENDING AT DISCHARGE: Test Results Not Yet Available from This Hospitalization: Please Review at Your Follow Up Appointment Order Current Status CALPROTECTIN,FECAL In process INCIDENTAL OR ACTIONABLE FINDING (Last Refresh: 04/30/2024 12:45 PM) Test(s): CT CHEST WO IVCON REASON FOR HOSPITALIZATION/PRINCIPAL DIAGNOSES: Abdominal pain, Choledocholithiasis HOSPITAL PROBLEMS: Principal Problem: Choledocholithiasis (POA: Yes) Active Problems: Chronic cough (POA: Yes) Cough with hemoptysis (POA: Yes) Essential hypertension (POA: Yes) Bladder wall thickening (POA: Yes) Benign prostatic hyperplasia with nocturia (POA: Yes) 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 * HOSPITAL COURSE: Bower Laura Thurston is a 78 year old male PMH: HTN, HLD, cholecystectomy presenting to ED with abdominal pain starting about 4 weeks ago. Initially was having sharp RUQ pain and epigastric pain after eating. Also reporting cough over the past month with occasional blood-tinged sputum. ED workup with CT abdomen showing 1.4 cm noncalcified calculus versus mass in the distal CBD with intrahepatic and extrahepatic biliary dilation. Incidental findings of bladder wall thickening recommending UA to rule out cystitis, left adrenal myelo lipoma, left renal cyst, diverticuli, prominent prostate. RUQ US done showing intrahepatic and extrahepatic biliary dilation and filling defect in the distal CBD. CBC with no leukocytosis. Bilirubin 4.6, ALP 442, AST 185, ALT 186, lipase 27. Transferred to [place] for GI consult with advanced endoscopy. Bilirubin trended up to 5.2. ERCP done 04/29. Choledocholithiasis removed by sphincterotomy and balloon extraction. Stent to CBD to stop sphincterotomy bleeding. Tolerated diet. Bilirubin down to 2.4 post ERCP. To follow up with GI for ERCP stent removal in 2 months. Due to reported hemoptysis CT chest done, w one <6mm nodule, will need [address] follow up. No further hemoptysis while here. Will need further workup outpatient. CT abdomen in ED had multiple incidental findings. Mural thickening of the urinary bladder may be related to incomplete distention though correlate with urinalysis to exclude cystitis. UA was done and is negative. Additional incidental findings include: Left adrenal myelolipoma, left renal cyst, duodenal diverticulum. Mildly prominent prostate for which correlation with PSA levels is requested. OPERATIONS/PROCEDURE DURING THIS HOSPITALIZATION: * No surgery found * CONSULTS DURING HOSPITALIZATION: Treatment Team: Attending Provider: Monica Monroe MD Primary Service: 6, [facility] Primary Service: Karri Terry APRN.RECHARGER PATIENT CONDITION AT DISCHARGE: Improved DISCHARGE DISPOSITION: Home with Self Chcf with Self Care General: NAD, resting comfortably in bed, polite and cooperative HEENT: Normocephalic, atraumatic, Pupils are equal, round, and reactive to light, EOMI, Mucus membranes moist, tongue is pink and midline Neck: Supple, trachea midline Lungs: CTA bilaterally without wheezes, rales, rhonchi. Unla (more content not included)... Normal [facility] CONSULT PROGon 04-30-2024 CONSULT PROG HNO ID: [id number] Author: RG HAN APRN.HERB Service: Gastroenterology Author Type: Nurse Practitioner Type: Consult Progress Note Filed: 04/30/2024 10:35 Note Text: Brief GI progress note S/p ERCP yesterday for choledocholithiasis Metal stent place due to sphincterotomy bleeding Hgb stable LFTs improved No pain this morning - advance diet, if tolerates ok for D/C from GI standpoint - Follow up with Dr. Aj to remove stent in 2 months. Office will contact Will follow as needed Normal [facility] Comprehensive metabolic 2000 panelon 04-30-2024 Albumin [Mass/Vol] 2.8 g/dL Low 3.9-4.9 [facility] Comment on above: Order Comment: Speci men Type: BLOOD SPECIMEN [facility] Address: [address] [place] [address] Performed By: #### 2 4323-8 #### [facility] CLIA [id number] [place] [address] [place] ALP [Catalytic activity/Vol] 283 U/L High 38-113 [facility] Comment on above: Order Comment: Speci men Type: BLOOD SPECIMEN [facility] Address: [address] [place] [address] Performed By: #### 2 4323-8 #### [facility] CLIA [id number] [address] [place] [address] [place] ALT [Catalytic activity/Vol] 92 U/L High 10-54 [facility] Comment on above: Order Comment: Speci men Type: BLOOD SPECIMEN [facility] Address: [address] [place] [address] Performed By: #### 2 4323-8 #### [facility] CLIA [id number] [address] [place] [address] [place] Anion gap [Moles/Vol] 12 mmol/L Normal 8-15 [facility] Comment on above: Order Comment: Speci men Type: BLOOD SPECIMEN [facility] Address: [address] [place] [address] Performed By: #### 2 4323-8 #### [facility] CLIA [id number] [address] [place] [address] [place] AST [Catalytic activity/Vol] 65 U/L High 14-40 [facility] Comment on above: Order Comment: Speci men Type: BLOOD SPECIMEN [facility] Address: [address] [place] [address] Performed By: #### 2 4323-8 #### [facility] CLIA [id number] [address] [place] [address] [place] Bilirubin [Mass/Vol] 2.4 mg/dL High 0.2-1.3 [facility] Comment on above: Order Comment: Speci men Type: BLOOD SPECIMEN [facility] Address: [address] [place] [address] Performed By: #### 2 4323-8 #### [facility] CLIA [id number] [address] [place] [address] [place] Calcium [Mass/Vol] 8.3 mg/dL Low 8.5-10.2 [facility] Comment on above: Order Comment: Speci men Type: BLOOD SPECIMEN [facility] Address: [address] [place] [address] Performed By: #### 2 4323-8 #### [facility] CLIA [id number] [address] [place] [address] [place] Chloride [Moles/Vol] 104 mmol/L Normal 98-107 [facility] Comment on above: Order Comment: Speci men Type: BLOOD SPECIMEN [facility] Address: [address] [place] [address] Performed By: #### 2 4323-8 #### [facility] CLIA [id number] [address] [place] [address] [place] CO2 [Moles/Vol] 21 mmol/L Low 22-30 [facility] Comment on above: Order Comment: Speci men Type: BLOOD SPECIMEN [facility] Address: [address] [place] [address] Performed By: #### 2 4323-8 #### [facility] CLIA [id number] [address] [place] [address] [place] Creatinine [Mass/Vol] 0.98 mg/dL Normal 0.73-1.22 [facility] Comment on above: Order Comment: Speci men Type: BLOOD SPECIMEN [facility] Address: [address] [place] [address] Performed By: #### 2 4323-8 #### [facility] CLIA [id number] [address] [place] [address] [place] Creatinine and Glomerular filtration rate.predicted panel (S/P/Bld) 80 mL/min/1.73m??? Normal >=60 [facility] Comment on above: Order Comment: Speci men Type: BLOOD SPECIMEN [facility] Address: [address] [place] [address] Result Comment: Yesenia mated Glomerular Filtration Rate (eGFR) is calculated using the 2020 CKD-EPI creatinine equation. This equation utilizes serum creatinine, sex, and age as parameters. The creatinine assay has traceable calibration to isotope dilution-mass spectrometry. Refer to KDIGO guidelines for clinical interpretation. In patients with unstable renal function, e.g. those with acute kidney injury, the eGFR may not accurately reflect actual GFR. Performed By: #### 2 4323-8 #### [facility] CLIA [id number] [address] [place] [address] [place] Glucose [Mass/Vol] 85 mg/dL Normal 74-99 [facility] Comment on above: Order Comment: Saira jade Type: BLOOD SPECIMEN [facility] Address: [address] [place] [address] Result Comment: The [place] Diabetes Association (ADA) provides guidance for cutoff values for fasting glucose and random glucose. The ADA defines fasting as no caloric intake for at least 8 hours. Fasting plasma glucose results between 100 to 125 mg/dL indicate increased risk for diabetes (prediabetes). Fasting plasma glucose results greater than or equal to 126 mg/dL meet the criteria for diagnosis of diabetes. In the absence of unequivocal hyperglycemia, results should be confirmed by repeat testing. In a patient with classic symptoms of hyperglycemia or hyperglycemic crisis, random plasma glucose results greater than or equal to 200 mg/dL meet the criteria for diagnosis of diabetes. Reference: Standards of Medical Care in Diabetes 2016, [place] [employer]. Diabetes Care. 2016.39(Suppl 1). Performed By: #### 2 4323-8 #### [facility] CLIA [id number] [address] [place] [address] [place] Potassium [Moles/Vol] 3.6 mmol/L Low 3.7-5.1 [facility] Comment on above: Order Comment: Saira jade Type: BLOOD SPECIMEN [facility] Address: [address] [place] [address] Performed By: #### 2 4323-8 #### [facility] CLIA [id number] [place] [address] [place] Protein [Mass/Vol] 6.1 g/dL Low 6.3-8.0 [facility] Comment on above: Order Comment: Speci men Type: BLOOD SPECIMEN [facility] Address: [address] [place] [address] Performed By: #### 2 4323-8 #### [facility] CLIA [id number] [address] [place] [address] [place] Sodium [Moles/Vol] 137 mmol/L Normal 136-144 [facility] Comment on above: Order Comment: Speci men Type: BLOOD SPECIMEN [facility] Address: [address] [place] [address] Performed By: #### 2 4323-8 #### [facility] CLIA [id number] [place] [address] [place] Urea nitrogen [Mass/Vol] 11 mg/dL Normal 9-24 [facility] Comment on above: Order Comment: Speci men Type: BLOOD SPECIMEN [facility] Address: [address] [place] [address] Performed By: #### 2 4323-8 #### [facility] CLIA [id number] [place] [address] [place] ANES POSTPROC EVALon 024 ANES POSTPROC EVAL HNO ID: [id number] Author: JENIFER PARRA MD Service: Anesthesiology Author Type: Anesthesiologist Type: Anesthesia Postprocedure Evaluation Filed: 04/29/2024 16:36 Note Text: POST ANESTHESIA EVALUATION NOTE : 1945 Procedure Summary Date: 04/29/24 Room / Location: [facility] Endoscopy - ENDO Anesthesia Start: 1511 Anesthesia Stop: 1605 Procedure: ERCP Diagnosis: (Suspected bile duct stone(s)) Scheduled Providers: Diomedes Aj MD; Clifton Marshall APRN.NOVELTY CANDY MAKER; Jenifer Parra MD Responsible Provider: Jenifer Parra MD Anesthesia Type: general ASA Status: 2 Anesthesia Type: general Airway Type: ETT Last Vitals Vitals Value Taken Time BP 136/100 04/29/24 1630 Temp 36.5 ?C (97.7 ?F) 04/29/24 1603 Pulse 81 04/29/24 1635 Resp 18 04/29/24 1635 SpO2 96 % 04/29/24 1635 Vitals shown include unfiled device data. Post Anesthesia Patient Status Patient Evaluation: PACU. PACU/ICU Patient Condition: stable. Anticipated Disposition: inpatient floor planned admission. Neurological Status: aware and responsive. Pulmonary Status: breathing comfortably on room air Airway Control: returned to baseline unsupported. Cardiovascular Status: stable. Pain Management: clinically adequate Postoperative Hydration: acceptable. Intraoperative Events: no significant anesthesia events Post Operative Nausea/Vomiting Status: no significant post operative nausea or vomiting Recommendation: continue current plan of care. Anesthesia Observations No Documentation SIGNATURE: Jenifer Parra MD PATIENT NAME: Diana Thurston DATE: April 29, 2024 TIME: 4:36 PM CSN: [id number] Normal [facility] ANES PRE-OPon 04-29-2024 ANES PRE-OP HNO ID: [id number] Author: MICHELLE EDWARDS MD Service: Anesthesiology Author Type: Anesthesiologist Type: Anesthesia Preprocedure Evaluation Filed: 04/29/2024 14:28 Note Text: ANESTHESIOLOGY DAY OF SURGERY NOTE : 1945 Procedure Information Date/Time: 04/29/24 1510 Scheduled providers: Diomedes Aj MD; Michelle Edwards MD; Clifton Marshall APRN.[employer]OVELTY CANDY MAKER Procedures: ERCP EGD - THERAPEUTIC, EUS, OR TUBE INTERVENTIONS Location: [facility] Endoscopy - ENDO Estimated body mass index is 34.19 kg/m? as calculated from the following: Height as of this encounter: 170.2 cm (5' 7). Weight as of this encounter: 99 kg (218 lb 4.8 oz). Most recent hematocrit and potassium results: Hematocrit 43.2 04/29/2024 Potassium 3.9 04/29/2024 Relevant Problems CARDIO (+) Essential hypertension -RENAL (+) Renal cyst, acquired, left Other (+) Obesity, Class I, BMI 30-34.9 I - PHYSICAL EVALUATION AIRWAY Patient intubated: No. Tracheostomy tube not present Mallampati: II. TM distance: >3 FB. Neck ROM: full ROM without neurological symptoms. Mouth opening: adequate. Short neck: no. Thick neck: no Phillips present: no DENTAL Dental findings: edentulous. Additional exam findings: yes. CARDIOVASCULAR Normal cardiovascular observations. Rhythm: regular Rate: normal PULMONARY Normal pulmonary observations. Breath sounds clear to auscultation. II - ANESTHESIA PLAN ASA Score: 2 Anesthetic Plan: general Airway type: ETT NPO Status: adequate Anesthetic plan additional comments: General vs MAC per proceduralist's preference. Beta Mari Monitoring Plan Monitoring plan: Standard ASA. Post Procedure Analgesic Plan Postoperative analgesic plan: multimodal analgesia. Informed Consent Anesthetic risks, benefits, alternatives, personnel and consent discussed: yes. Patient / Responsible Republican agrees to proceed: yes Patient / Surrogate agrees to blood products: blood products not planned Significant changes in the patient condition since the History and Physical, not otherwise documented in primary service progress note: no. Potential Anesthesia issues that may suggest increased risk of complications or contraindication to planned procedure: none. Vitals Value Taken Time BP 152/90 04/29/24 1404 Pulse 80 04/29/24 1404 Resp 20 04/29/24 1404 Temp 36.9 ?C (98.4 ?F) 04/29/24 1404 SpO2 99 % 04/29/24 1404 Facility-Administered Medications as of 04/29/2024 Medication Dose Route Frequency [] iv contrast (radiology procedure) INTRAVENOUS DIRECTED PRN [COMPLETED] NaCl 0.9% 1,000 mL iv bolus 1,000 mL INTRAVENOUS ONCE [COMPLETED] ondansetron (PF) 4 mg injection (ZOFRAN) 4 mg INTRAVENOUS ONCE NaCl 0.9% iv flush bag 20 mL INTRAVENOUS PRN NaCl 0.9% iv infusion 100 mL/hr INTRAVENOUS CONTINUOUS Outpatient Medications as of 04/29/2024 Medication Sig hydroCHLOROthiazide 12.5 mg tablet 12.5 mg. losartan (COZAAR) 50 mg tablet Take 50 mg by mouth once daily. Omeprazole 40 mg capsule Take 40 mg by mouth once daily. I have interviewed and examined the patient. I have reviewed the medical record and/or the pre-anesthesia evaluation, pertinent labs, and test results. This contains updated information obtained within 48 hours of Surgery/Procedure. SIGNATURE: Michelle Edwards MD PATIENT NAME: Diana Thurston DATE: April 29, 2024 TIME: 2:27 PM CSN: [id number] [facility] CBC panel Auto (Bld)on 04-29 Erythrocyte distribution width (RBC) [Ratio] 13.0 % Normal 11.5-15.0 [facility] Comment on above: Order Comment: Speci men Type: BLOOD SPECIMEN Ordering Facility: [facility] Address: [address] [place] [address] Performed By: #### 2 4323-8 #### [facility] CLIA [id number] [address] [place] [address] [place] Hematocrit (Bld) [Volume fraction] 43.2 % Normal 39.0-51.0 [facility] Comment on above: Order Comment: Speci men Type: BLOOD SPECIMEN Ordering Facility: [facility] Address: [address] [place] [address] Performed By: #### 2 4323-8 #### [facility] CLIA [id number] [address] [place] [address] [place] Hemoglobin (Bld) [Mass/Vol] 14.7 g/dL Normal 13.0-17.0 [facility] Comment on above: Order Comment: Speci men Type: BLOOD SPECIMEN Ordering Facility: [facility] Address: [address] [place] [address] Performed By: #### 2 4323-8 #### [facility] CLIA [id number] [address] [place] [address] [place] MCH (RBC) [Entitic mass] 31.1 pg Normal 26.0-34.0 [facility] Comment on above: Order Comment: Speci men Type: BLOOD SPECIMEN Ordering Facility: [facility] Address: [address] [place] [address] Performed By: #### 2 4323-8 #### [facility] CLIA [id number] [address] [place] [address] [place] MCHC (RBC) [Mass/Vol] 34.0 g/dL Normal 30.5-36.0 [facility] Comment on above: Order Comment: Speci men Type: BLOOD SPECIMEN Ordering Facility: [facility] Address: [address] [place] [address] Performed By: #### 2 4323-8 #### [facility] CLIA [id number] [address] [place] [address] [place] MCV (RBC) [Entitic vol] 91.5 fL Normal 80.0-100.0 [facility] Comment on above: Order Comment: Speci men Type: BLOOD SPECIMEN Ordering Facility: [facility] Address: [address] [place] [address] Performed By: #### 2 4323-8 #### [facility] CLIA [id number] [address] [place] [address] [place] Nucleated RBC (Bld) [#/Vol] 10*3/uL Normal <0.01 [facility] Comment on above: Order Comment: Speci men Type: BLOOD SPECIMEN Ordering Facility: [facility] Address: [address] [place] [address] Performed By: #### 2 4323-8 #### [facility] CLIA [id number] [address] [place] [address] [place] Platelet mean volume (Bld) [Entitic vol] 9.2 fL Normal 9.0-12.7 [facility] Comment on above: Order Comment: Speci men Type: BLOOD SPECIMEN Ordering Facility: [facility] Address: [address] [place] [address] Performed By: #### 2 4323-8 #### [facility] CLIA [id number] [address] [place] [address] [place] Platelets (Bld) [#/Vol] 240 10*3/uL Normal 150-400 [facility] Comment on above: Order Comment: Speci men Type: BLOOD SPECIMEN Ordering Facility: [facility] Address: [address] [place] [address] Performed By: #### 2 4323-8 #### [facility] CLIA [id number] [address] [place] [address] [place] RBC (Bld) [#/Vol] 4.72 10*6/uL Normal 4.20-6.00 [facility] Comment on above: Order Comment: Speci men Type: BLOOD SPECIMEN Ordering Facility: [facility] Address: [address] [place] [address] Performed By: #### 2 4323-8 #### [facility] CLIA [id number] [address] [place] [address] [place] WBC (Bld) [#/Vol] 8.02 10*3/uL Normal 3.70-11.00 [facility] Comment on above: Order Comment: Speci men Type: BLOOD SPECIMEN Ordering Facility: [facility] Address: [address] [place] [address] Performed By: #### 2 4323-8 #### [facility] CLIA [id number] [address] [place] [address] [place] Comprehensive metabolic 2000 panelon 04-29-2024 Albumin [Mass/Vol] 2.9 g/dL Low 3.9-4.9 [facility] Comment on above: Order Comment: Speci men Type: BLOOD SPECIMEN Ordering Facility: [facility] Address: [address] [place] [address] Performed By: #### 2 4323-8 #### [facility] CLIA [id number] [address] [place] [address] [place] ALP [Catalytic activity/Vol] 337 U/L High 38-113 [facility] Comment on above: Order Comment: Speci men Type: BLOOD SPECIMEN Ordering Facility: [facility] Address: [address] [place] [address] Performed By: #### 2 4323-8 #### [facility] CLIA [id number] [address] [place] [address] [place] ALT [Catalytic activity/Vol] 124 U/L High 10-54 [facility] Comment on above: Order Comment: Speci men Type: BLOOD SPECIMEN Ordering Facility: [facility] Address: [address] [place] [address] Performed By: #### 2 4323-8 #### [facility] CLIA [id number] [address] [place] [address] [place] Anion gap [Moles/Vol] 12 mmol/L Normal 8-15 [facility] Comment on above: Order Comment: Speci men Type: BLOOD SPECIMEN Ordering Facility: [facility] Address: [address] [place] [address] Performed By: #### 2 4323-8 #### [facility] CLIA [id number] [address] [place] [address] [place] AST [Catalytic activity/Vol] 100 U/L High 14-40 [facility] Comment on above: Order Comment: Speci men Type: BLOOD SPECIMEN Ordering Facility: [facility] Address: [address] [place] [address] Performed By: #### 2 4323-8 #### [facility] CLIA [id number] [address] [place] [address] [place] Bilirubin [Mass/Vol] 5.2 mg/dL High 0.2-1.3 [facility] Comment on above: Order Comment: Speci men Type: BLOOD SPECIMEN Ordering Facility: [facility] Address: [address] [place] [address] Performed By: #### 2 4323-8 #### [facility] CLIA [id number] [address] [place] [address] [place] Calcium [Mass/Vol] 8.4 mg/dL Low 8.5-10.2 [facility] Comment on above: Order Comment: Speci men Type: BLOOD SPECIMEN Ordering Facility: [facility] Address: [address] [place] [address] Performed By: #### 2 4323-8 #### [facility] CLIA [id number] [address] [place] [address] [place] Chloride [Moles/Vol] 102 mmol/L Normal 98-107 [facility] Comment on above: Order Comment: Speci men Type: BLOOD SPECIMEN Ordering Facility: [facility] Address: [address] [place] [address] Performed By: #### 2 4323-8 #### [facility] CLIA [id number] [address] [place] [address] [place] CO2 [Moles/Vol] 20 mmol/L Low 22-30 [facility] Comment on above: Order Comment: Speci men Type: BLOOD SPECIMEN Ordering Facility: [facility] Address: [address] [place] [address] Performed By: #### 2 4323-8 #### [facility] CLIA [id number] [address] [place] [address] [place] Creatinine [Mass/Vol] 0.97 mg/dL Normal 0.73-1.22 [facility] Comment on above: Order Comment: Saiar yasmany Type: BLOOD SPECIMEN Ordering Facility: [facility] Address: [address] [place] [address] Performed By: #### 2 4323-8 #### [facility] CLIA [id number] [place] [address] [place] [facility] [place] Creatinine and Glomerular filtration rate.predicted panel (S/P/Bld) 81 mL/min/1.73m??? Normal >=60 [facility] Comment on above: Order Comment: Saira yasmany Type: BLOOD SPECIMEN Ordering Facility: [facility] Address: [address] [place] [address] Result Comment: Yesenia mated Glomerular Filtration Rate (eGFR) is calculated using the 2020 CKD-EPI creatinine equation. This equation utilizes serum creatinine, sex, and age as parameters. The creatinine assay has traceable calibration to isotope dilution-mass spectrometry. Refer to KDIGO guidelines for clinical interpretation. In patients with unstable renal function, e.g. those with acute kidney injury, the eGFR may not accurately reflect actual GFR. Performed By: #### 2 4323-8 #### [facility] CLIA [id number] [place] [address] [place] Glucose [Mass/Vol] 100 mg/dL High 74-99 [facility] Comment on above: Order Comment: Saiar yasmany Type: BLOOD SPECIMEN Ordering Facility: [facility] Address: [address] [place] [address] Result Comment: The [place] [employer] (ADA) provides guidance for cutoff values for fasting glucose and random glucose. The ADA defines fasting as no caloric intake for at least 8 hours. Fasting plasma glucose results between 100 to 125 mg/dL indicate increased risk for diabetes (prediabetes). Fasting plasma glucose results greater than or equal to 126 mg/dL meet the criteria for diagnosis of diabetes. In the absence of unequivocal hyperglycemia, results should be confirmed by repeat testing. In a patient with classic symptoms of hyperglycemia or hyperglycemic crisis, random plasma glucose results greater than or equal to 200 mg/dL meet the criteria for diagnosis of diabetes. Reference: Standards of Medical Care in Diabetes 2016, [place] [employer]. Diabetes Care. 2016.39(Suppl 1). Performed By: #### 2 4323-8 #### [facility] CLIA [id number] [address] [place] [address] [place] Potassium [Moles/Vol] 3.9 mmol/L Normal 3.7-5.1 [facility] Comment on above: Order Comment: Speci men Type: BLOOD SPECIMEN Ordering Facility: [facility] Address: [address] [place] [address] Performed By: #### 2 4323-8 #### [facility] CLIA [id number] [address] [place] [address] [place] Protein [Mass/Vol] 6.2 g/dL Low 6.3-8.0 [facility] Comment on above: Order Comment: Speci men Type: BLOOD SPECIMEN Ordering Facility: [facility] Address: [address] [place] [address] Performed By: #### 2 4323-8 #### [facility] CLIA [id number] [address] [place] [address] [place] Sodium [Moles/Vol] 134 mmol/L Low 136-144 [facility] Comment on above: Order Comment: Speci men Type: BLOOD SPECIMEN Ordering Facility: [facility] Address: [address] [place] [address] Performed By: #### 2 4323-8 #### [facility] CLIA [id number] [address] [place] [address] [place] Urea nitrogen [Mass/Vol] 11 mg/dL Normal 9-24 [facility] Comment on above: Order Comment: Speci men Type: BLOOD SPECIMEN Ordering Facility: [facility] Address: [address] [place] [address] Performed By: #### 2 4323-8 #### [facility] [id number] STATES OF [facility] ERCPon 04-29-2024 ERCP [facility] Gastrointestinal Endoscopy Patient Name: Diana Thurston Procedure Date: 04/29/2024 3:07 PM Date of : 1945 Admit Type: Inpatient Age: 78 Room: [place] [address] Gender: Male Note Status: Finalized Attending MD: Diomedes Aj MD, [id number] Procedure: ERCP Indications: Suspected bile duct stone(s), Bile duct stone(s), For therapy of bile duct stone(s) Providers: Diomedes Aj MD, Genny Muñoz RN, Saundra Nieto RN (Assisting Nurse) Referring Physician: Liseth Mcdowell (Referring MD) Medicines: General Anesthesia Complications: No immediate complications. Procedure: Pre-Anesthesia Assessment: - ASA Grade Assessment: II - A patient with mild systemic disease. After obtaining informed consent, the scope was passed under direct vision. Throughout the procedure, the patient's blood pressure, pulse, and oxygen saturations were monitored continuously. The Endoscope was introduced through the mouth, and advanced to the duodenum and used to inject contrast into the bile duct. The ERCP was accomplished without difficulty. The patient tolerated the procedure well. Moderate Sedation: GA MAC anesthesia was administered by the anesthesia team. Total Procedure Duration: 0 hours 37 minutes 2 seconds Findings: The hand turner film was normal. The major papilla was located entirely within a diverticulum. The bile duct could not be cannulated with the short-nosed traction sphincterotome and guidewire. A biliary pre-cut sphincterotomy measuring 7 mm in length was made with a monofilament needle knife using a freehand technique using ERBE electrocautery. Moderate bleeding from the sphincterotomy stopped within 5 minutes. The bile duct was deeply cannulated with the short-nosed traction sphincterotome and guidewire. Contrast was injected. I personally interpreted the bile duct images. There was brisk flow of contrast through the ducts. Image quality was excellent. Contrast extended to the main bile duct. Contrast extended to the bifurcation. Contrast extended to the hepatic ducts. The lower third of the main bile duct contained one stone, which was large in diameter. The biliary sphincterotomy was extended to a total of 6 mm in length with a monofilament traction (standard) sphincterotome using ERBE electrocautery. There was no post-sphincterotomy bleeding. To discover objects, the biliary tree was swept with an 11.5 mm balloon starting at the bifurcation. One stone was removed. No stones remained. One 10 mm by 4 cm covered metal stent was placed 4 cm into the common bile duct. Bile flowed through the stent. The stent was in good position. Impression: - The major papilla was located entirely within a diverticulum. Precut with needle knife, Significant bleeding. - Choledocholithiasis was found. Complete removal was accomplished by biliary sphincterotomy and balloon extraction. - A biliary sphincterotomy was performed. - The biliary tree was swept. - One covered metal stent was placed into the common bile duct to successfully control post sphincterotomy bleed. Recommendation: - Patient has a contact number available for emergencies. The signs and symptoms of potential delayed complications were discussed with the patient. Return to normal activities tomorrow. Written discharge instructions were provided to the patient. - Resume previous diet. - Continue present medications. - Repeat ERCP in 2 months to remove stent. Procedure Code(s): --- Professional --- 34399, Endoscopic retrograde cholangiopancreatography (ERCP); with placement of endoscopic stent into biliary or pancreatic duct, including pre- and post-dilation and guide wire passage, when performed, including sphincterotomy, when performed, each stent 49597, Endoscopic retrograde cholangiopancreatography (ERCP); with removal of calculi/debris from biliary/pancreatic duct(s) 05384, Endoscopic catheterization of the biliary ductal system, radiological supervision and interpretation Diagnosis Code(s): --- Professional --- K80.50, Calculus of bile duct without cholangitis or cholecystitis without obstruction CPT copyright 2020 [place] [employer]. All rights reserved. The codes documented in this report are preliminary and upon manager access review may be revised to meet current compliance requirements. Attending Participation: I personally performed the entire procedure. Scope In: 3:17:26 PM Scope Out: 3:54:28 PM MD Diomedes Crockett MD 04/29/2024 4:10:24 PM This report has been signed electronically by Diomedes Aj MD Number of Addenda: 0 Note Initiated On: 04/29/2024 3:07 PM Estimated Blood Loss: Estimated blood loss: none. Normal [facility] HISTORY PHYSICALon HISTORY PHYSICAL HNO ID: [id number] Author: DIOMEDES AJ MD Service: Gastroenterology Author Type: Physician Type: H&P Filed: 04/29/2024 14:56 Note Text: New Patient/Consult REASON FOR VISIT Diana Thurston is a 78 year old male who is scheduled for a consult at the request of Ewa Mcgowan. CHIEF COMPLAINT CBD stone My final recommendations will be communicated back to the requesting physician by the way of the shared medical record, fax, or via US Mail. HISTORY OF PRESENT ILLNESS Jaundice Dilated bile duct I have reviewed the following PERTINENT PRIOR DIAGNOSTIC TESTING Luminal: N/A MEDICATIONS Current Facility-Administered Medications Medication Dose Route Frequency Provider Last Rate Last Admin NaCl 0.9% iv flush bag 20 mL INTRAVENOUS PRN Beck Elizalde MD NaCl 0.9% iv infusion 100 mL/hr INTRAVENOUS CONTINUOUS Beck Elizalde MD 100 mL/hr at 04/29/24 0311 100 mL/hr at 04/29/24 0311 ALLERGIES ALLERGIES No Known Allergies PAST MEDICAL HISTORY PAST MEDICAL HISTORY No date: Hyperlipidemia No date: Hypertension PAST SURGICAL HISTORY No past surgical history on file. SOCIAL HISTORY Social History Tobacco Use Smoking status: Every Day Smokeless tobacco: Never Substance Use Topics Alcohol use: Not Currently Drug use: Never FAMILY HISTORY NA REVIEW OF SYSTEMS GENERAL: No weight loss, malaise or fevers GI: No nausea, vomiting, or diarrhea All other systems negative. PHYSICAL EXAMINATION Constitutional: BP 152/90 Pulse 80 Temp (Src) 98.4 (Temporal) Resp 20 Ht 5' 7 (1.70m) Wt 218 lb 4.8 oz (99.0kg) SpO2 99% BMI 34.18 kg/(m2). O2 Therapy: Room Air Skin: Skin color, texture, turgor normal, no suspicious rashes or lesions Eyes: Anicteric sclera. Pupils are equally round and reactive to light. Extraocular movements are intact. ENT: External ears normal, canals clear Nares normal, septum midline, mucosa normal, no drainage or sinus tenderness Respiratory: Lungs clear to auscultation. No wheezing, rhonchi, rales Cardiovascular: RRR without murmur, gallop, or rubs. No ectopy GI: Normal abdominal exam, Abdomen soft, non-tender. Bowel sounds normal. No masses, organomegaly Musculoskeletal: No joint swelling, deformity, or tenderness Peripheral pulses: Normal Neuro: Gait normal. Reflexes normal and symmetric. Sensation grossly intact. Assessment Cbd stone Plan ERCP No name on file April 29, 2024 2:55 PM [facility] NURSING PROGon 04-29-2024 NURSING PROG HNO ID: [id number] Author: JOSEFINA العلي RN Service: ? Author Type: Registered Nurse Type: Nursing Progress Note Filed: 04/29/2024 16:14 Note Text: PATIENT EDUCATION TOPIC: PROCEDURE / SURGERY: Post Procedure Teaching: ERCP PATIENT NAME: [facility] PATIENT LOCATION: [facility] ENDO POOL/[facility] ENDO POOL READINESS TO LEARN COGNITIVE ABILITY: Alert and oriented MOTIVATION TO LEARN: Eager FAMILY SUPPORT: Unable to assess - Family not present INSTRUCTION PROVIDED TO: Patient PATIENT LEARNS BEST BY: Verbal Instruction FACTORS AFFECTING LEARNING: None PHYSICAL LIMITATIONS AFFECTING LEARNING: None LEARNING RESPONSE DIAGNOSIS: ADULT: Stone, CBD stent PATIENT/FAMILY RESPONSE: Verbalizes understanding of: POST-PROCEDURE INSTRUCTIONS-Correct actions to take to reduce post procedure complications METHOD OF INSTRUCTION: Verbal instruction FOLLOW-UP PLAN: Patient instructed to call with any further issues INSTRUCTIONAL AIDS USED: NA SUPPLEMENTAL MATERIAL PROVIDED TO PATIENT: None REFERRAL (RECOMMENDATION): None Electronically Signed By: Josefina العلي [facility] NURSING PROG HNO ID: [id number] Author: MEEK WADSWORTH RN Service: ? Author Type: Registered Nurse Type: Nursing Progress Note Filed: 04/29/2024 14:03 Note Text: PATIENT EDUCATION TOPIC: PROCEDURE / SURGERY: Pre Procedure Teaching: Logistics PATIENT NAME: [facility] PATIENT LOCATION: [facility] ENDO POOL/[facility] ENDO POOL READINESS TO LEARN COGNITIVE ABILITY: Alert and oriented MOTIVATION TO LEARN: Interested FAMILY SUPPORT: Unable to assess - Family not present INSTRUCTION PROVIDED TO: Patient PATIENT LEARNS BEST BY: Multiple Methods FACTORS AFFECTING LEARNING: None PHYSICAL LIMITATIONS AFFECTING LEARNING: None LEARNING RESPONSE DIAGNOSIS: ADULT: PATIENT/FAMILY RESPONSE: Verbalizes understanding of: PRE-PROCEDURE INSTRUCTIONS-Correct action to take to follow pre-procedure instructions METHOD OF INSTRUCTION: Verbal instruction FOLLOW-UP PLAN: Complete - No need for follow-up INSTRUCTIONAL AIDS USED: NA SUPPLEMENTAL MATERIAL PROVIDED TO PATIENT: None REFERRAL (RECOMMENDATION): None Electronically Signed By: Meek Potts [facility] PT panel Coag (PPP)on 2023 INR Coag (PPP) [Relative time] 1.3 {INR} Normal 0.9-1.3 [facility] Comment on above: Order Comment: Saira jade Type: BLOOD SPECIMEN Ordering Facility: [facility] Address: [address] [place], [place] [id number] Result Comment: Mehreen min K Antagonist (VKA) Therapeutic Range: INR 2 to 3 (Target INR of 2.5) Note: For patients treated with VKA drugs, such as warfarin, the [place] [employer] 2012 Guideline recommends a therapeutic INR range of 2 to 3 (target INR of 2.5). This recommendation includes high-risk patients with antiphospholipid syndrome with previous arterial or venous thromboembolism, current-generation mechanical or bioprosthetic aortic heart valve replacement. Note: Patients with mechanical aortic valve replacement and additional risk factors for thromboembolic events (atrial fibrillation, previous thromboembolism, LV dysfunction, hypercoagulable conditions) or an older generation mechanical AVR (i.e., ball in-Cage) or any mechanical MVR should have a INR therapeutic range of 2.5 to 3.5 (target INR of 3). Candelaria GH, et al. Chest 2012, 141:7S-47S Kristin RA et al. [facility] 2017, 70: 252-289 Performed By: #### 2 4323-8 #### [facility] CLIA [id number] [address] [place] [address] [place] PT Coag (PPP) [Time] 14.1 s High 9.7-13.0 [facility] Comment on above: Order Comment: Saira jade Type: BLOOD SPECIMEN Ordering Facility: [facility] Address: [address] [place] [id number] Performed By: #### 2 4323-8 #### [facility] CLIA [id number] [place] XR ERCP READ ONLYon 04-29-20 24 XR ERCP READ ONLY * * *Final Report* * * DATE OF EXAM: Apr 29 2024 3:58PM FVO [id number] - XR ERCP READ ONLY / PROCEDURE REASON: abd pain- intra op ercp * * * * Physician Interpretation * * * * XR ERCP READ ONLY PROVIDED HISTORY: abd pain- intra op ercp COMPARISON: No previous similar exams are available for comparison TECHNIQUE: Fluoroscopic Radiation Summary: Plane A, Air Kerma: 38.1 mGy Dose Area Product (DAP): Fluoro time: 1:47 min:sec RESULT: 10 spot images were obtained of the abdomen. Images demonstrate ERCP with retrograde administration contrast into the common bile duct. The common bile duct appears dilated. A balloon was inflated in the common bile duct. A stent was placed in the common bile duct IMPRESSION: Fluoroscopic assistance for ERCP procedure Optical Glass Sawyer: RUBY Transcribe Date/Time: Apr 29 2024 4:27P Dictated by : RONDA GAMBINO MD This examination was interpreted and the report reviewed and electronically signed by: RONDA GAMBINO MD on Apr 29 2024 4:28PM EST [id number] [facility] HEALTHon 04-28-2024 ALLIED [facility] HNO ID: [id number] Author: BLAIRE GARCIA RT(R) Service: Radiology Author Type: Technologist Type: Allied Health Filed: 04/28/2024 17:04 Note Text: Radiology Service Progress Note PATIENT NAME: Diana Thurston DATE OF SERVICE: April 28, 2024 TIME: 5:03 PM PATIENT IDENTITY VERIFICATION COMPLETED USING TWO (2) IDENTIFIERS: Name and Date of confirmed by patient verbally and Name and Date of confirmed by identification band. FALL SCREENING: Has the patient had 2 falls in the last year or 1 fall with injury or currently using an Ambulatory Assistive Device (Walker, Cane, Wheelchair, Crutches, etc.)? Inpatient: Screened on floor PATIENT GENDER DATA: Male PATIENT RELEVANT IMPLANT DATA REVIEWED: Not Applicable PATIENT PRESENTS WITH AN IMPLANTABLE OR ATTACHED BREAKER HAND: No RADIOLOGY DEPARTMENT: General X-ray: Exam(s) Completed: Chest X-Ray PERIPHERAL IV DATA: Not applicable SIGNED BY: RT Aashish(R) April 28, 2024 5:03 PM [facility] C diff Tox gens Stl Ql JENNY+p robeon 04-28-2024 C. difficile toxin genes JENNY+probe Ql (Stl) Negative Normal Negative for C. difficile toxin by PCR [facility] Comment on above: Order Comment: Speci men Type: BLOOD SPECIMEN Ordering Facility: [facility] Address: [address] [place] [address] Performed By: #### 2 4323-8 #### [facility] CLIA [id number] [address] [place] [address] [place] CBC panel Auto (Bld)on 04-28 Erythrocyte distribution width (RBC) [Ratio] 13.2 % Normal 11.5-15.0 [facility] Comment on above: Order Comment: Speci men Type: BLOOD SPECIMEN Ordering Facility: [facility] Address: [address] [place] [address] Performed By: #### 2 432-8 #### [facility] CLIA [id number] [address] [place] [address] [place] Hematocrit (Bld) [Volume fraction] 42.7 % Normal 39.0-51.0 [facility] Comment on above: Order Comment: Speci men Type: BLOOD SPECIMEN Ordering Facility: [facility] Address: [address] [place] [address] Performed By: #### 2 432-8 #### [facility] CLIA [id number] [address] [place] [address] [place] Hemoglobin (Bld) [Mass/Vol] 14.5 g/dL Normal 13.0-17.0 [facility] Comment on above: Order Comment: Speci men Type: BLOOD SPECIMEN Ordering Facility: [facility] Address: [address] [place] [address] Performed By: #### 2 4323-8 #### [facility] CLIA [id number] [address] [place] [address] [place] MCH (RBC) [Entitic mass] 31.1 pg Normal 26.0-34.0 [facility] Comment on above: Order Comment: Speci men Type: BLOOD SPECIMEN Ordering Facility: [facility] Address: [address] [place] [address] Performed By: #### 2 4323-8 #### [facility] CLIA [id number] [address] [place] [address] [place] MCHC (RBC) [Mass/Vol] 34.0 g/dL Normal 30.5-36.0 [facility] Comment on above: Order Comment: Speci men Type: BLOOD SPECIMEN Ordering Facility: [facility] Address: [address] [place] [address] Performed By: #### 2 4323-8 #### [facility] CLIA [id number] [address] [place] [address] [place] MCV (RBC) [Entitic vol] 91.6 fL Normal 80.0-100.0 [facility] Comment on above: Order Comment: Speci men Type: BLOOD SPECIMEN Ordering Facility: [facility] Address: [address] [place] [address] Performed By: #### 2 4323-8 #### [facility] CLIA [id number] [address] [place] [address] [place] Nucleated RBC (Bld) [#/Vol] 10*3/uL Normal <0.01 [facility] Comment on above: Order Comment: Speci men Type: BLOOD SPECIMEN Ordering Facility: [facility] Address: [address] [place] [address] Performed By: #### 2 4323-8 #### [facility] CLIA [id number] [address] [place] [address] [place] Platelet mean volume (Bld) [Entitic vol] 9.6 fL Normal 9.0-12.7 [facility] Comment on above: Order Comment: Speci men Type: BLOOD SPECIMEN Ordering Facility: [facility] Address: [address] [place] [address] Performed By: #### 2 4323-8 #### [facility] CLIA [id number] [address] [place] [address] [place] Platelets (Bld) [#/Vol] 248 10*3/uL Normal 150-400 [facility] Comment on above: Order Comment: Speci men Type: BLOOD SPECIMEN Ordering Facility: [facility] Address: [address] [place] [address] Performed By: #### 2 4323-8 #### [facility] CLIA [id number] [address] [place] [address] [place] RBC (Bld) [#/Vol] 4.66 10*6/uL Normal 4.20-6.00 [facility] Comment on above: Order Comment: Speci men Type: BLOOD SPECIMEN Ordering Facility: [facility] Address: [address] [place] [address] Performed By: #### 2 4323-8 #### [facility] CLIA [id number] [address] [place] [address] [place] WBC (Bld) [#/Vol] 7.63 10*3/uL Normal 3.70-11.00 [facility] Comment on above: Order Comment: Speci men Type: BLOOD SPECIMEN Ordering Facility: [facility] Address: [address] [place] [address] Performed By: #### 2 4323-8 #### [facility] CLIA [id number] [address] [place] [address] OF [facility] CONSULTon 04-28-2024 CONSULT HNO ID: [id number] Author: LISETH BERNARD PA-C Service: Gastroenterology Author Type: Physician Harness Cleaner Type: Consults Filed: 04/28/2024 14:28 Note Text: Gastroenterology Consult Service Date of Service April 28, 2024 Patient: Diana Thurston Medical Record: [id number] Reason for Consult: Choledocholithiasis Requesting Service: GIM Consultation requested by Dr. Estelita Urrutia for an opinion regarding choledocholithiasis. My final recommendations will be communicated back to the requesting physician by way of shared medical record. CC: Elevated LFTs History of Present Illness: Diana Thurston is a 78 year old with a past medical history of duodenal diverticulum, myelolipoma of left adrenal gland, renal cyst, chronic cough, BPH, HTN, hyperlipidemia and cholecystectomy who presents for abdominal pain x 4 weeks that started in the RUQ then localized to the epigastric region precipitated by meals. GI was consulted for choledocholithiasis. The patient is alert and oriented x 3. The patient states non-stop diarrhea since 1930 last night until 0400 this morning that was watery brown. Other associated symptoms are loss of appetite, early satiety and unintentional weight loss of 26 lbs x 1 month which the patient associated due to eating less. He denies abdominal pain, nausea, vomiting, hematemesis, dysphagia, odynophagia, heart burn, regurgitation, chest pain, shortness of breath, fevers, chills, night sweats, constipation, melena or hematochezia. He denies daily NSAIDs or blood thinners. He denies ETOH, tobacco or illicit drug use. He had prior cholecystectomy but unsure when or why. He states he had a prior EGD and colonoscopy however no record seen in EMR. He states during the procedure he stopped breathing twice and they had to stop. He states this procedure was to clean out his liver. He states his older sister had cancer after removing a mole and passed. He has a history of bladder cancer. He denies any family history of GI cancers. Past Medical History: PAST MEDICAL HISTORY No date: Hyperlipidemia No date: Hypertension Past Surgical History: No past surgical history on file. Family History: No family history on file. Social History: Social History Tobacco Use Smoking status: Every Day Smokeless tobacco: Never Substance Use Topics Alcohol use: Not Currently Drug use: Never Allergies: ALLERGIES No Known Allergies Medications: Prior to Admission Medications: pravastatin (PRAVACHOL) 40 mg tabletTake 40 mg by mouth daily at bedtime.Disp: Rfl: hydroCHLOROthiazide 12.5 mg .5 mg.Disp: Rfl: losartan (COZAAR) 50 mg tabletTake 50 mg by mouth once daily.Disp: Rfl: 3 Omeprazole 40 mg capsuleTake 40 mg by mouth once daily.Disp: Rfl: Current Facility-Administered Medications Medication Dose Route Frequency NaCl 0.9% iv flush bag 20 mL INTRAVENOUS PRN NaCl 0.9% iv infusion 100 mL/hr INTRAVENOUS CONTINUOUS Pertinent Review of Systems: GI ROS: Difficulty swallowing / foods sticking in throat: Negative Odynophagia: Negative Heartburn: Negative Regurgitation: Negative Chest pain: Negative Filling up quickly at meals: Positive Loss of appetite: Positive Nausea: Negative Vomiting: Negative Abdominal pain: Negative Hematochezia: Negative Melena: Negative Constipation: Negative Diarrhea: Positive Night sweats: Negative Fever: Negative Chills: Negative Vomiting blood: Negative Recent change in weight: Positive OTHER ROS: Shortness of breath: Negative OBJECTIVE: Physical Exam: Vital Signs: 04/27/24 1810 04/27/24 1811 04/28/24 0042 04/28/24 0715 BP: 137/68 129/67 Pulse: 80 73 Resp: 16 16 Temp: 36.7 ?C (98.1 ?F) 36.4 ?C (97.5 ?F) TempSrc: Oral Oral SpO2: 94% 95% Weight: 96.5 kg (212 lb 11.2 oz) 99 kg (218 lb 4.8 oz) Height: 170.2 cm (5' 7) 170.2 cm (5' 7) VITAL SIGNS: BP 129/67 Pulse 73 Temp (Src) 97.5 (Oral) Resp 16 Ht 5' 7 (1.70m) Wt 218 lb 4.8 oz (99.0kg) SpO2 95% BMI 34.18 kg/(m2). O2 Therapy: Room Air General appearance: alert and in no acute distress Skin: Jaundice Head: normal Eyes: Scleral icterus Oropharynx: Lips, mucosa, and tongue normal, teeth and gums normal. Neck: Supple. Lungs: lungs clear to auscultation no wheezing or rhonchi Heart: RRR without murmur, gallop, or rubs. Abdomen: Abdomen soft, fullness noted on the right side of abdomen, non-tender. Bowel sounds normal. Extremities: Extremities normal. No deformities, edema, or skin discoloration. Neuro: Sensation grossly intact. No intake or output data in the 24 hours ending 04/28/24 0727 Diagnostic Testing: Labs: Recent Labs 04/27/24212004/27/24 1016 WBC -- 9.93 HB -- 16.1 HCT -- 48.8 PLT -- 316 NA 128* 130* K 4.2 3.6* CHLOR 93* 92* CO2 23 26 BUN 11 11 CREAT 1.14 1.20 GLUC 137* 231* CA 8.4* 9.0 MG -- 1.8 WBC 9.93, RBC 5.26, Hgb 16.1, Hct 48.8, Plts 316, MCV 92 (more content not included)... Normal [facility] CT CHEST WO IVCONon 04-28-20 CT CHEST WO IVCON * * *Final Report* * * DATE OF EXAM: Apr 28 2024 5:12PM [facility]VC 0541 - CT CHEST WO IVCON / PROCEDURE REASON: Hemoptysis * * * * Physician Interpretation * * * * EXAMINATION: CHEST CT WITHOUT CONTRAST CLINICAL HISTORY: Hemoptysis Technique: Spiral CT acquisition of the chest from the thoracic inlet to the upper abdomen without contrast. MQ: [id number]_6 CT Radiation dose: Integrated Dose-length product (DLP) for this visit = 214 mGy*cm CT Dose Reduction Employed: Automated exposure control (AEC) Comparison: 09/03/2019 RESULT: Limitations: None. Lines, tubes, and devices: None. Lung parenchyma and airways: Small pleural-based nodule is seen in the lateral right upper lobe series 3 image 48 measuring 3 mm. No consolidation is seen. Central airways appear patent. Pleural space: Mild pleural thickening posterior lateral right hemithorax. No pleural effusion is seen. Lower neck, lymph nodes, and mediastinum: The imaged thyroid gland appears unremarkable. No mediastinal or axillary lymphadenopathy is seen. Prominent lymph node precarinal 1 cm in short axis measurement series 2 image 67 Heart, pericardium, and thoracic vessels: Atherosclerotic calcifications of the thoracic aorta are present. Mild coronary calcifications are seen. Cardiac size within normal limits. Thickening of the pericardium or a small pericardial effusion measuring up to approximately 4.5 mm series 2 image 119. Bones and soft tissues: Old right posterior rib fracture deformities are seen Upper abdomen: No additional findings Localizer images: No additional findings. IMPRESSION: Mild pleural thickening of the right hemithorax and a small pleural-based nodule is noted. Mild pericardial thickening or pericardial fluid. Incidental Finding: Follow-up Acuity: Incidental Finding: Solid: <6 mm (solitary or multiple) Routing Code: N/A Recommendation: No imaging follow-up is recommended Time Frame: N/A Comments: If there are risk factors for lung malignancy, a follow-up chest CT exam could be obtained in 12 months --END OF FINDING-- Optical Glass Sawyer: RUBY Transcribe Date/Time: Apr 29 2024 11:18A Dictated by : RONDA GAMBINO MD This examination was interpreted and the report reviewed and electronically signed by: RONDA GAMBINO MD on Apr 29 2024 11:24AM EST [id number] ACTIONABLE Invalid Interpretation Code [facility] Calprotectin (Stl) [Mass/Mas s]on 04-28-2024 CALPROTECTIN, FECAL INTERP Normal Normal Normal [facility] Comment on above: Order Comment: Speci men Type: STOOL SPECIMENOrdering Facility: [facility] Address: [address] [place] [address] Result Comment: Inte rpretation: <50.0 ug/g: Normal 50.0 ug/g - 120.0 ug/g: Borderline elevated. Re-evaluation in 4-6 weeks is recommended if clinically indicated. >120.0 ug/g: Elevated Performed By: #### 7 9390-1, 40911-4, 31917-0 ####[facility] [id number] [place] [address] [place] CALPROTECTIN, FECAL QUANTITATIVE 19.6 ug/g Normal <50 [facility] Comment on above: Order Comment: Speci men Type: STOOL SPECIMENOrdering Facility: [facility] Address: [address] [place] [address] Performed By: #### 7 9390-1, 79605-5, 23170-4 ####[facility] [id number] [place] [address] [place] Comprehensive metabolic 2000 panelon 04-28-2024 Albumin [Mass/Vol] 2.8 g/dL Low 3.9-4.9 [facility] Comment on above: Order Comment: Speci men Type: BLOOD SPECIMEN Ordering Facility: [facility] Address: [address] [place] [address] Performed By: #### 2 4323-8 #### [facility] CLIA [id number] [address] [place] [address] [place] ALP [Catalytic activity/Vol] 355 U/L High 38-113 [facility] Comment on above: Order Comment: Speci men Type: BLOOD SPECIMEN Ordering Facility: [facility] Address: [address] [place] [address] Performed By: #### 2 4323-8 #### [facility] CLIA [id number] [address] [place] [address] [place] ALT [Catalytic activity/Vol] 140 U/L High 10-54 [facility] Comment on above: Order Comment: Speci men Type: BLOOD SPECIMEN Ordering Facility: [facility] Address: [address] [place] [address] Performed By: #### 2 4323-8 #### [facility] CLIA [id number] [place] [address] [place] Anion gap [Moles/Vol] 13 mmol/L Normal 8-15 [facility] Comment on above: Order Comment: Speci men Type: BLOOD SPECIMEN Ordering Facility: [facility] Address: [address] [place] [address] Performed By: #### 2 4323-8 #### [facility] CLIA [id number] [address] [place] [address] [place] AST [Catalytic activity/Vol] 110 U/L High 14-40 [facility] Comment on above: Order Comment: Speci men Type: BLOOD SPECIMEN Ordering Facility: [facility] Address: [address] [place] [address] Performed By: #### 2 4323-8 #### [facility] CLIA [id number] [address] [place] [address] [place] Bilirubin [Mass/Vol] 4.4 mg/dL High 0.2-1.3 [facility] Comment on above: Order Comment: Speci men Type: BLOOD SPECIMEN Ordering Facility: [facility] Address: [address] [place] [address] Performed By: #### 2 4323-8 #### [facility] CLIA [id number] [address] [place] [address] [place] Calcium [Mass/Vol] 8.3 mg/dL Low 8.5-10.2 [facility] Comment on above: Order Comment: Speci men Type: BLOOD SPECIMEN Ordering Facility: [facility] Address: [address] [place] [address] Performed By: #### 2 4323-8 #### [facility] CLIA [id number] [address] [place] [address] [place] Chloride [Moles/Vol] 99 mmol/L Normal 98-107 [facility] Comment on above: Order Comment: Speci men Type: BLOOD SPECIMEN Ordering Facility: [facility] Address: [address] [place] [address] Performed By: #### 2 4323-8 #### [facility] CLIA [id number] [place] [address] [place] CO2 [Moles/Vol] 22 mmol/L Normal 22-30 [facility] Comment on above: Order Comment: Speci men Type: BLOOD SPECIMEN Ordering Facility: [facility] Address: [address] [place] [address] Performed By: #### 2 4323-8 #### [facility] CLIA [id number] [address] [place] [address] [place] Creatinine [Mass/Vol] 1.05 mg/dL Normal 0.73-1.22 [facility] Comment on above: Order Comment: Speci men Type: BLOOD SPECIMEN Ordering Facility: [facility] Address: [address] [place] [address] Performed By: #### 2 4323-8 #### [facility] CLIA [id number] [address] [place] [address] [place] [facility] [place] Creatinine and Glomerular filtration rate.predicted panel (S/P/Bld) 74 mL/min/1.73m??? Normal >=60 [facility] Comment on above: Order Comment: Speci men Type: BLOOD SPECIMEN Ordering Facility: [facility] Address: [address] [place] [address] Result Comment: Yesenia mated Glomerular Filtration Rate (eGFR) is calculated using the 2020 CKD-EPI creatinine equation. This equation utilizes serum creatinine, sex, and age as parameters. The creatinine assay has traceable calibration to isotope dilution-mass spectrometry. Refer to KDIGO guidelines for clinical interpretation. In patients with unstable renal function, e.g. those with acute kidney injury, the eGFR may not accurately reflect actual GFR. Performed By: #### 2 4323-8 #### [facility] CLIA [id number] [place] [address] [place] Glucose [Mass/Vol] 121 mg/dL High 74-99 [facility] Comment on above: Order Comment: Saira jade Type: BLOOD SPECIMEN Ordering Facility: [facility] Address: [address] [place] [address] Result Comment: The [place] Diabetes Association (ADA) provides guidance for cutoff values for fasting glucose and random glucose. The ADA defines fasting as no caloric intake for at least 8 hours. Fasting plasma glucose results between 100 to 125 mg/dL indicate increased risk for diabetes (prediabetes). Fasting plasma glucose results greater than or equal to 126 mg/dL meet the criteria for diagnosis of diabetes. In the absence of unequivocal hyperglycemia, results should be confirmed by repeat testing. In a patient with classic symptoms of hyperglycemia or hyperglycemic crisis, random plasma glucose results greater than or equal to 200 mg/dL meet the criteria for diagnosis of diabetes. Reference: Standards of Medical Care in Diabetes 2016, [place] [employer]. Diabetes Care. 2016.39(Suppl 1). Performed By: #### 2 4323-8 #### [facility] CLIA [id number] [address] [place] [address] [place] Potassium [Moles/Vol] 3.7 mmol/L Normal 3.7-5.1 [facility] Comment on above: Order Comment: Saira jade Type: BLOOD SPECIMEN Ordering Facility: [facility] Address: [address] [place] [address] Performed By: #### 2 4323-8 #### [facility] CLIA [id number] [address] [place] [address] [place] Protein [Mass/Vol] 6.2 g/dL Low 6.3-8.0 [facility] Comment on above: Order Comment: Saira jade Type: BLOOD SPECIMEN Ordering Facility: [facility] Address: [address] [place] [address] Performed By: #### 2 4323-8 #### [facility] CLIA [id number] [address] [place] [address] [place] Sodium [Moles/Vol] 134 mmol/L Low 136-144 [facility] Comment on above: Order Comment: Saira jade Type: BLOOD SPECIMEN Ordering Facility: [facility] Address: [address] [place] [address] Performed By: #### 2 4323-8 #### [facility] CLIA [id number] [place] [id number] [place] Urea nitrogen [Mass/Vol] 11 mg/dL Normal 9-24 [facility] Comment on above: Order Comment: Speci men Type: BLOOD SPECIMEN Ordering Facility: [facility] Address: [address] [place] [address] Performed By: #### 2 4323-8 #### [facility] CLIA [id number] [address] [place] [address] [place] Gastrointestinal pathogens i dentified JENNY+probe Nom (Stl)on 04-28-2024 Campylobacter sp DNA JENNY+probe Nom (Unsp spec) Not detected Normal Not Detected [facility] Comment on above: Order Comment: Speci men Type: STOOL SPECIMENOrdering Facility: [facility] Address: [address] [place] [address] Performed By: #### 7 9390-1, 89143-2, 97466-2 ####[facility]IA [id number] [place] [address] [place] Salmonella sp DNA JENNY+probe Ql (Unsp spec) Not detected Normal Not Detected [facility] Comment on above: Order Comment: Speci men Type: STOOL SPECIMENOrdering Facility: [facility] Address: [address] [place] [address] Performed By: #### 7 9390-1, 59582-1, 44767-3 ####[facility] [id number] [place] [address] [place] Shiga toxin stx gene JENNY+probe Nom (Unsp spec) Not detected Normal Not Detected [facility] Comment on above: Order Comment: Speci men Type: STOOL SPECIMENOrdering Facility: [facility] Address: [address] [place] [address] Performed By: #### 7 9390-1, 94990-3, 48785-1 ####[facility] [id number] [address] [place] Shigella sp DNA JENNY+probe Ql (Unsp spec) Not detected Normal Not Detected [facility] Comment on above: Order Comment: Saira jade Type: STOOL SPECIMENOrdering Facility: [facility] Address: [address] [place] [address] Performed By: #### 7 9390-1, 53823-8, 86992-3 ####[facility] [id number] [address] [place] NURSING PROGon 04-28-2024 NURSING PROG HNO ID: [id number] Author: BRYSON WOO RN Service: ? Author Type: Registered Nurse Type: Nursing Progress Note Filed: 04/28/2024 00:09 Note Text: Nursing Progress Note Patient Name: Diana Thurston Patient Location: [place] [address] [address] Daily Note: 0008- Hosptialist paged 708-0 Diana DALTON patient triggered for sepsis. ThanksBryson [phone] This note was completed by: Bryson Woo Normal [facility] PT panel Coag (PPP)on 2023 INR Coag (PPP) [Relative time] 1.2 {INR} Normal 0.9-1.3 [facility] Comment on above: Order Comment: Speci men Type: BLOOD SPECIMEN Ordering Facility: [facility] Address: [address] [place] [address] Result Comment: Mehreen min K Antagonist (VKA) Therapeutic Range: INR 2 to 3 (Target INR of 2.5) Note: For patients treated with VKA drugs, such as warfarin, the [place] [employer] 2012 Guideline recommends a therapeutic INR range of 2 to 3 (target INR of 2.5). This recommendation includes high-risk patients with antiphospholipid syndrome with previous arterial or venous thromboembolism, current-generation mechanical or bioprosthetic aortic heart valve replacement. Note: Patients with mechanical aortic valve replacement and additional risk factors for thromboembolic events (atrial fibrillation, previous thromboembolism, LV dysfunction, hypercoagulable conditions) or an older generation mechanical AVR (i.e., ball in-Cage) or any mechanical MVR should have a INR therapeutic range of 2.5 to 3.5 (target INR of 3). Candelaria GH, et al. Chest 2012, 141:7S-47S Kristin RA et al. JAC 2017, 70: 252-289 Performed By: #### 2 4323-8 #### [facility] CLIA [id number] [address] [place] [address] [place] PT Coag (PPP) [Time] 13.1 s High 9.7-13.0 [facility] Comment on above: Order Comment: Saira jade Type: BLOOD SPECIMEN Ordering Facility: [facility] Address: [address] [place] [address] Performed By: #### 2 4323-8 #### [facility] CLIA [id number] [address] [place] [address] [place] URINALYSIS, REFLEX MICROSCOP ICon 04-28-2024 Bacteria LM.HPF (Urine sed) [#/Area] Rare Abnormal None Seen [facility] Comment on above: Order Comment: Saira jade Type: BLOOD SPECIMEN Ordering Facility: [facility] Address: [address] [place] [address] Performed By: #### 2 4323-8 #### [facility] CLIA [id number] [address] [place] [address] [place] Bilirubin Ql (U) 2+ Abnormal Negative [facility] Comment on above: Order Comment: Saira jade Type: BLOOD SPECIMEN Ordering Facility: [facility] Address: [address] [place] [address] Result Comment: Sugg est correlation with clinical findings and serum bilirubin if clinically indicated. Performed By: #### 2 4323-8 #### [facility] CLIA [id number] [address] [place] [address] [place] Clarity (Unsp spec) Clear Normal Clear [facility] Comment on above: Order Comment: Speci men Type: BLOOD SPECIMEN Ordering Facility: [facility] Address: [address] [place] [address] Performed By: #### 2 4323-8 #### [facility] CLIA [id number] [address] [place] [address] [place] Color (U) Dark Yellow Abnormal Yellow [facility] Comment on above: Order Comment: Speci men Type: BLOOD SPECIMEN Ordering Facility: [facility] Address: [address] [place] [address] Performed By: #### 2 4323-8 #### [facility] CLIA [id number] [address] [place] [address] [place] Epithelial cells LM.HPF (Urine sed) [#/Area] Few Normal [facility] Comment on above: Order Comment: Speci men Type: BLOOD SPECIMEN Ordering Facility: [facility] Address: [address] [place] [address] Performed By: #### 2 4323-8 #### [facility] CLIA [id number] [address] [place] [address] [place] Glucose Test strip (U) [Mass/Vol] Negative Normal Trace, Negative [facility] Comment on above: Order Comment: Speci men Type: BLOOD SPECIMEN Ordering Facility: [facility] Address: [address] [place] [address] Performed By: #### 2 4323-8 #### [facility] CLIA [id number] [address] [place] [address] [place] Hemoglobin Ql (U) Trace Normal Negative, Trace [facility] Comment on above: Order Comment: Speci men Type: BLOOD SPECIMEN Ordering Facility: [facility] Address: [address] [place] [address] Performed By: #### 2 4323-8 #### [facility] CLIA [id number] [address] [place] [address] [place] Ketones Ql (U) Negative Normal Negative, Trace [facility] Comment on above: Order Comment: Speci men Type: BLOOD SPECIMEN Ordering Facility: [facility] Address: [address] [place] [address] Performed By: #### 2 4323-8 #### [facility] CLIA [id number] [address] [place] [address] [place] Leukocyte esterase Test strip Ql (U) Negative Normal Negative, 25 Franky/uL [facility] Comment on above: Order Comment: Speci men Type: BLOOD SPECIMEN Ordering Facility: [facility] Address: [address] [place] [address] Performed By: #### 2 4323-8 #### [facility] CLIA [id number] [address] [place] [address] [place] Nitrite Ql (U) Negative Normal Negative [facility] Comment on above: Order Comment: Speci men Type: BLOOD SPECIMEN Ordering Facility: [facility] Address: [address] [place] [address] Performed By: #### 2 4323-8 #### [facility] CLIA [id number] [address] [place] [address] [place] pH (U) 6.5 [pH] Normal 5.0-8.0 [facility] Comment on above: Order Comment: Speci men Type: BLOOD SPECIMEN Ordering Facility: [facility] Address: [address] [place] [address] Performed By: #### 2 4323-8 #### [facility] CLIA [id number] [address] [place] [address] [place] Protein (U) [Mass/Vol] Trace Normal Trace, Negative [facility] Comment on above: Order Comment: Speci men Type: BLOOD SPECIMEN Ordering Facility: [facility] Address: [address] [place] [address] Performed By: #### 2 4323-8 #### [facility] CLIA [id number] [address] [place] [address] [place] RBC LM.HPF (Urine sed) [#/Area] 0-3 /HPF Normal 0-3 /HPF [facility] Comment on above: Order Comment: Speci men Type: BLOOD SPECIMEN Ordering Facility: [facility] Address: [address] [place] [address] Performed By: #### 2 4323-8 #### [facility] CLIA [id number] [address] [place] [address] STATES [facility] Specific gravity (U) [Rel density] 1.015 Normal 1.005-1.030 [facility] Comment on above: Order Comment: Speci men Type: BLOOD SPECIMEN Ordering Facility: [facility] Address: [address] [place] [address] Performed By: #### 2 4323-8 #### [facility] CLIA [id number] [address] [place] [address] [place] Urobilinogen Ql (U) 2+ Abnormal Normal [facility] Comment on above: Order Comment: Speci men Type: BLOOD SPECIMEN Ordering Facility: [facility] Address: [address] [place] [address] Performed By: #### 2 4323-8 #### [facility] CLIA [id number] [address] [place] [address] [place] WBC LM.HPF (Urine sed) [#/Area] 0-5 /HPF Normal 0-5 /HPF [facility] Comment on above: Order Comment: Speci men Type: BLOOD SPECIMEN Ordering Facility: [facility] Address: [address] [place] [address] Performed By: #### 2 4323-8 #### [facility] CLIA [id number] [address] [place] [address] [place] XR CHEST 2V FRONTAL/LATon XR CHEST 2V FRONTAL/LAT * * *Final Report* * * DATE OF EXAM: Apr 28 2024 5:03PM FVX [id number] - XR CHEST 2V FRONTAL/LAT / PROCEDURE REASON: Cough * * * * Physician Interpretation * * * * EXAMINATION: CHEST RADIOGRAPH (2 VIEW FRONTAL and LATERAL) CLINICAL HISTORY: Cough MQ: [id number]_6 EXAM DATE/TIME: 04/28/2024 5:03 PM COMPARISON: 09/03/2019 RESULT: Lines, tubes, and devices: None. Lungs and pleura: There has been interval improvement pleuroparenchymal opacity lateral right lung base. Suspect right-sided pleural thickening. The left basilar atelectasis also demonstrates improvement. There is no apical pneumothorax. Cardiomediastinal silhouette: Stable cardiomediastinal silhouette. Bones and soft tissues: Unremarkable. IMPRESSION: Slight interval improvement. Optical Glass Sawyer: RUBY Transcribe Date/Time: Apr 29 2024 7:03A Dictated by : CRISTINA SINGLETON MD This examination was interpreted and the report reviewed and electronically signed by: CRISTINA SINGLETON MD on Apr 29 2024 7:04AM EST [id number] [facility] 04-27-2024 [facility] Telephone (FVPRAD) ----- DIANA THURSTON ([id number]) 1945 M Date Time Provider Department 04/27/24 LESLIE ARTIS [facility] During your visit today, we recorded the following information about you: Leslie Artis MD 04/27/2024 2:47 PM Signed In [place] ER with Nausea for 4 weeks - elev LFTs, CT abd with 1.4 cm mass vs stone in distal CBD. Hx cholecystectomy. Needs EUS/ERCP at . Leslie Artis MD Allergies As of Date: 04/27/2024 (No Known Allergies) Date Reviewed: 04/27/2024 Reviewed by: Mulu Muro, TECHNOLOGIST - Fully Assessed Reason for Visit: Hospital To Hospital [[id number]] Prescriptions as of 04/27/2024 - losartan (COZAAR) 50 mg tablet Take 50 mg by mouth once daily. - pravastatin (PRAVACHOL) 20 mg tablet Take 20 mg by mouth once daily. - Omeprazole 40 mg capsule Take 40 mg by mouth once daily. Facility-Administered Medications as of 04/27/2024 - iv contrast (radiology procedure) Problem List As Of Date 04/27/2024 Noted Resolved Pneumonia [J18.9] 09/03/2019 09/04/2019 Encounter Status:Closed by LESLIE ARTIS on 04/27/24 Normal [facility] Cancer Ag19-9 SerPl-aCncon 0 04-27-2024 Cancer Ag 19-9 Qn 605.0 [arb'U]/mL High <36.0 F [facility] Comment on above: Order Comment: Specemmanuel jade Type: BLOOD SPECIMENOrdering Facility: [facility] Address: [address] [place] [address] Result Comment: [facility] er antigen 19-9 test is used as an aid in monitoring response to treatment or recurrence in patients with established pancreatic, hepatobiliary, or gastrointestinal malignancies. Clinical correlation is required. The CA 19-9 Antigen test was performed using the [employer] DXI paramagnetic particle chemiluminescent immunoassay method. Results obtained with different assay methods or kits cannot be used interchangeably. Performed By: #### 2 4108-3 ####[facility] [id number] [place] [address] [place] Comprehensive metabolic 2000 panelon 04-27-2024 Albumin [Mass/Vol] 3.2 g/dL Low 3.9-4.9 [facility] Comment on above: Order Comment: Saira jade Type: BLOOD SPECIMENOrdering Facility: [facility] Address: [address] [place] [address] Performed By: #### 2 4323-8 ####[facility] [id number] [place] [id number] [place] ALP [Catalytic activity/Vol] 403 U/L High 38-113 [facility] Comment on above: Order Comment: Laurai yasmany Type: BLOOD SPECIMENOrdering Facility: [facility] Address: [address] [place] [address] Performed By: #### 2 4323-8 ####[facility] [id number] [place] [id number] [place] ALT [Catalytic activity/Vol] 161 U/L High 10-54 [facility] Comment on above: Order Comment: Speci men Type: BLOOD SPECIMENOrdering Facility: [facility] Address: [address] [place] [address] Performed By: #### 2 4323-8 ####[facility] [id number] [place] [id number] [place] Anion gap [Moles/Vol] 12 mmol/L Normal 8-15 [facility] Comment on above: Order Comment: Speci men Type: BLOOD SPECIMENOrdering Facility: [facility] Address: [address] [place] [address] Performed By: #### 2 4323-8 ####[facility] [id number] [place] [address] [place] AST [Catalytic activity/Vol] 134 U/L High 14-40 [facility] Comment on above: Order Comment: Speci men Type: BLOOD SPECIMENOrdering Facility: [facility] Address: [address] [place] [address] Performed By: #### 2 4323-8 ####[facility] [id number] [place] [address] [place] Bilirubin [Mass/Vol] 4.7 mg/dL High 0.2-1.3 [facility] Comment on above: Order Comment: Speci men Type: BLOOD SPECIMENOrdering Facility: [facility] Address: [address] [place] [address] Performed By: #### 2 4323-8 ####[facility]ORY[facility] [id number] [place] [address] [place] Calcium [Mass/Vol] 8.4 mg/dL Low 8.5-10.2 [facility] Comment on above: Order Comment: Speci men Type: BLOOD SPECIMENOrdering Facility: [facility] Address: [address] [place] [address] Performed By: #### 2 4323-8 ####[facility]ORY[facility] [id number] [place] [id number] [place] Chloride [Moles/Vol] 93 mmol/L Low 98-107 [facility] Comment on above: Order Comment: Speci men Type: BLOOD SPECIMENOrdering Facility: [facility] Address: [address] [place] [address] Performed By: #### 2 4323-8 ####[facility] [id number] [place] [id number] [place] CO2 [Moles/Vol] 23 mmol/L Normal 22-30 [facility] Comment on above: Order Comment: Speci men Type: BLOOD SPECIMENOrdering Facility: [facility] Address: [address] [place] [address] Performed By: #### 2 4323-8 ####[facility] [id number] [place] [id number] [place] Creatinine [Mass/Vol] 1.14 mg/dL Normal 0.73-1.22 [facility] Comment on above: Order Comment: Speci men Type: BLOOD SPECIMENOrdering Facility: [facility] Address: [address] [place] [address] Performed By: #### 2 4323-8 ####[facility] [id number] [place] [id number] [place] Creatinine and Glomerular filtration rate.predicted panel (S/P/Bld) 67 mL/min/1.73m??? Normal >=60 [facility] Comment on above: Order Comment: Speci men Type: BLOOD SPECIMENOrdering Facility: [facility] Address: [address] [place] [address] Result Comment: Yesenia mated Glomerular Filtration Rate (eGFR) is calculated using the 2020 CKD-EPI creatinine equation. This equation utilizes serum creatinine, sex, and age as parameters. The creatinine assay has traceable calibration to isotope dilution-mass spectrometry. Refer to KDIGO guidelines for clinical interpretation. In patients with unstable renal function, e.g. those with acute kidney injury, the eGFR may not accurately reflect actual GFR. Performed By: #### 2 4323-8 ####[facility] [id number] [place] [id number] [place] Glucose [Mass/Vol] 137 mg/dL High 74-99 [facility] Comment on above: Order Comment: Speci men Type: BLOOD SPECIMENOrdering Facility: [facility] Address: [address] [place] [id number] Result Comment: The [place] Diabetes Association (ADA) provides guidance for cutoff values for fasting glucose and random glucose. The ADA defines fasting as no caloric intake for at least 8 hours. Fasting plasma glucose results between 100 to 125 mg/dL indicate increased risk for diabetes (prediabetes). Fasting plasma glucose results greater than or equal to 126 mg/dL meet the criteria for diagnosis of diabetes. In the absence of unequivocal hyperglycemia, results should be confirmed by repeat testing. In a patient with classic symptoms of hyperglycemia or hyperglycemic crisis, random plasma glucose results greater than or equal to 200 mg/dL meet the criteria for diagnosis of diabetes. Reference: Standards of Medical Care in Diabetes 2016, [place] [employer]. Diabetes Care. 2016.39(Suppl 1). Performed By: #### 2 4323-8 ####[facility] [id number] [place] [address] [place] Potassium [Moles/Vol] 4.2 mmol/L Normal 3.7-5.1 [facility] Comment on above: Order Comment: Lauraemmanuel jade Type: BLOOD SPECIMENOrdering Facility: [facility] Address: [address] [place] [address] Performed By: #### 2 4323-8 ####[facility] [id number] [place] [address] [place] Protein [Mass/Vol] 6.9 g/dL Normal 6.3-8.0 [facility] Comment on above: Order Comment: Speci men Type: BLOOD SPECIMENOrdering Facility: [facility] Address: [address] [place] [address] Performed By: #### 2 4323-8 ####[facility] [id number] [place] [address] [place] Sodium [Moles/Vol] 128 mmol/L Low 136-144 [facility] Comment on above: Order Comment: Speci yasmany Type: BLOOD SPECIMENOrdering Facility: [facility] Address: [address] [place] [address] Performed By: #### 2 4323-8 ####[facility] [id number] [place] [id number] [place] Urea nitrogen [Mass/Vol] 11 mg/dL Normal 9-24 [facility] Comment on above: Order Comment: Speci men Type: BLOOD SPECIMENOrdering Facility: [facility] Address: [facility] [place] [address] Performed By: #### 2 4323-8 ####[facility] [id number] [place] [id number] [place] HISTORY PHYSICALon HISTORY PHYSICAL HNO ID: [id number] Author: BECK ELIZALDE MD Service: Hospital Medicine Author Type: Physician Type: H&P Filed: 04/27/2024 21:12 Note Text: HISTORY AND PHYSICAL EXAMINATION SERVICE DATE: 04/27/2024 SERVICE TIME: 9:02 PM PRIMARY CARE PHYSICIAN: Brad Moody MD Subjective CC: abdoinal pain HPI 78 year old M with HTN, HPL, prio h/o cholecystectomy who presents with abdomnial pain 4 weeks ago, started to have sharp RUQ pain radiating and subsequenlty localizing into the epigastrium 05/07, precipitated by a meal, He was seen in local ed and said there was nothigng wrong with him On follow up with PCP - apparently he lost his insurance, but got [employer] again - [employer] would not cover his PCP visit and OP testing Has cough x3-4 weeks, sometimes with blood tinged sputum EKG NSR nonspec t wave abn HS BLAINE 9->7 Labs CBC : WBC 9.93, Hgb 16.1, Plt 316 CMP - Bili 4.6, ALP 442, AST 185, ALT 186, Glucose [address] abd/pel - 1. 1.4 cm noncalcified calculus versus polypoid mass in the distal common bile duct with secondary intrahepatic and extrahepatic biliary ductal dilation. Consider further evaluation with right upper quadrant ultrasound. 2. Mildly prominent nonspecific periportal/portacaval lymph nodes. 3. Mural thickening of the urinary bladder may be related to incomplete distention though correlate with urinalysis to exclude cystitis. 4. Additional incidental findings include: Left adrenal myelolipoma, left renal cyst, duodenal diverticulum. Mildly prominent prostate for which correlation with PSA levels is requested. RUQ - Cholecystectomy. Intrahepatic and extrahepatic biliary ductal dilation. Filling defect in the distal CBD better visualized on concurrently performed CT. Further evaluation with ERCP is recommended. The patient was given zofran and 1L NS bolus His pain is currently 3/10 FUNCTIONAL STATUS: Independent PAST MEDICAL HISTORY No date: Hyperlipidemia No date: Hypertension No past surgical history on file. No family history on file. Social History Tobacco Use Smoking status: Every Day Smokeless tobacco: Never Substance Use Topics Alcohol use: Not Currently Drug use: Never pravastatin (PRAVACHOL) 40 mg tablet, Take 40 mg by mouth daily at bedtime., Disp: , Rfl: , 04/26/2024 losartan (COZAAR) 50 mg tablet, 50 mg., Disp: , Rfl: hydroCHLOROthiazide 12.5 mg tablet, 12.5 mg., Disp: , Rfl: , 04/27/2024 at AM losartan (COZAAR) 50 mg tablet, Take 50 mg by mouth once daily., Disp: , Rfl: 3, 04/27/2024 at AM pravastatin (PRAVACHOL) 20 mg tablet, Take 20 mg by mouth once daily., Disp: , Rfl: , 04/26/2024 Omeprazole 40 mg capsule, Take 40 mg by mouth once daily., Disp: , Rfl: ALLERGIES No Known Allergies COMPLETE REVIEW OF SYSTEMS: Review of Systems Constitutional: Negative for chills and fever. Respiratory: Positive for cough (since February 2024) and dyspnea (when the pain). Blood tinged sputum x 4 weeks Cardiovascular: Positive for hypertension . Negative for chest pain. Gastrointestinal: Positive for abdominal pain and nausea. Negative for blood in stool, diarrhea and vomiting. Endocrine: Negative for DM on oral agent. Genitourinary: Negative for dysuria, frequency, hematuria and urgency. Skin: neg for jaundice Neurological: Positive for weakness. Negative for light-headedness. Hematological: Negative for bleeding / clotting disorders . Psychiatric/Behavioral: Negative for self-injury and suicidal ideas. Objective PHYSICAL EXAM: Physical Exam Constitutional: General: He is not in acute distress. Appearance: He is not ill-appearing. Eyes: Pupils: Pupils are equal, round, and reactive to light. Cardiovascular: Rate and Rhythm: Normal rate and regular rhythm. Heart sounds: Normal heart sounds. Pulmonary: Effort: No respiratory distress. Breath sounds: Normal breath sounds. No wheezing. Abdominal: General: There is no distension. Palpations: Abdomen is soft. Tenderness: There is no abdominal tenderness. Musculoskeletal: General: No swelling. Skin: General: Skin is warm. Coloration: Skin is not jaundiced. Psychiatric: Mood and Affect: Mood normal. BP 113/55 Pulse 98 Temp 37.3 ?C (99.1 ?F) (Oral) Resp 18 Ht 170.2 cm (5' 7) Wt 99 kg (218 lb 4.8 oz) SpO2 93% BMI 34.19 kg/m? Body mass index is 34.19 kg/m?. DATA: Diagnostic tests reviewed for today's visit: Most recent labs and imaging results. Most recent EKG Assessment/Plan Principal Problem: Choledocholithiasis (POA: Yes) Assessment AND Plan: with RUQ pain, labs c/w cholestasis no evidence of chonlangitis, if fevers, start abx clears, NPO after MN, IVF GI consult Active Problems: Duodenal diverticulum (POA: Yes) Assessment AND Plan: incidental Essential hypertension (POA: Yes) Assessment AND Plan: hold BP meds due to soft BPs Bladder wall thickening (POA: Yes) Assessment AND Plan: has h/o bl (more content not included)... Normal [facility] .Auto Diffon 03-21-2024 Basophil, Absolute 0.0 10 3/mcL Normal 0.0-0.2 [facility] ([place]) Comment on above: Performed By: #### G CLAUDIA CABRERA ADIFF, LIP, W, CMP, CBC ####[id number] [place], [place] [address] Basophils/100 WBC (Bld) 0.5 % Normal 0.0-2.5 [facility] ([place]) Comment on above: Performed By: #### G CLAUDIA CABRERA ADIFF, LIP, ELVIA, CMP, CBC ####[address] [place], [place] [address] Eosinophil, Absolute 0.1 10 3/mcL Normal 0.0-0.4 [facility] ([place]) Comment on above: Performed By: #### G CLAUDIA CABRERA ADIFF, LIP, W, CMP, CBC ####[id number] [place], [place] [address] Eosinophils/100 WBC (Bld) 2.1 % Normal 0.0-7.0 [facility] ([place]) Comment on above: Performed By: #### G FR, ANEU, ADIFF, LIP, MDW, CMP, CBC ####[address] [place], [place] [address] Lymphocyte, Absolute 1.6 10 3/mcL Normal 0.8-3.9 [facility] ([place]) Comment on above: Performed By: #### G FR, ANEU, ADIFF, LIP, MDW, CMP, CBC ####[address] [place], [place] [address] Lymphocytes/100 WBC (Bld) 19.2 % Normal 10.0-50.0 [facility] ([place]) Comment on above: Performed By: #### G FR, ANEU, ADIFF, LIP, MDW, CMP, CBC ####[address] [place], [place] [address] Monocyte, Absolute 0.7 10 3/mcL Normal 0.2-1.0 [facility] ([place]) Comment on above: Performed By: #### G FR, ANEU, ADIFF, LIP, MDW, CMP, CBC ####[id number] [place], [place] [address] Monocytes/100 WBC (Bld) 8.4 % Normal 1.7-13.0 [facility] ([place]) Comment on above: Performed By: #### G FR, ANEU, ADIFF, LIP, MDW, CMP, CBC ####Tamar [address] [place], [place] [address] Neutrophils/100 WBC (Bld) 69.6 % Normal 37.0-80.0 [facility] ([place]) Comment on above: Performed By: #### G FR, ANEU, ADIFF, LIP, MDW, CMP, CBC ####Tamar [address] [place], [place] [address] .GFRon 03-21-2024 GFR Non- 57 ml/min/1.73sqm Normal [facility] ([place]) Comment on above: Result Comment: GFR Population mean for , Non- Americans Ages 20-29 = 116 mL/min/1.73 sq.m. Ages 30-39 = 107 mL/min/1.73 sq.m. Ages 40-49 = 99 mL/min/1.73 sq.m. Ages 50-59 = 93 mL/min/1.73 sq.m. Ages 60-69 = 85 mL/min/1.73 sq.m. Ages 70+ = 75 mL/min/1.73 sq.m. Chronic Kidney Disease: Less than 60 mL/min/1.73 square meters End Stage Renal Disease: Less than 15 mL/min/1.73 square meters Performed By: #### G FR, ANEU, ADIFF, SARAH, ELVIA, CMP, CBC ####Tamar [address] [place], [place] [address] GFR 69 ml/min/1.73sqm Normal [facility] ([place]) Comment on above: Result Comment: GFR Population mean for , Non- Americans Ages 20-29 = 116 mL/min/1.73 sq.m. Ages 30-39 = 107 mL/min/1.73 sq.m. Ages 40-49 = 99 mL/min/1.73 sq.m. Ages 50-59 = 93 mL/min/1.73 sq.m. Ages 60-69 = 85 mL/min/1.73 sq.m. Ages 70+ = 75 mL/min/1.73 sq.m. Chronic Kidney Disease: Less than 60 mL/min/1.73 square meters End Stage Renal Disease: Less than 15 mL/min/1.73 square meters Performed By: #### G FR, ANEU, ADNICOLAS, SARAH, ELVIA, CMP, CBC ####Tamar [address] [place], [place] [address] .Gomez 03-21-2024 Monocyte Distribution Width Not tested Normal 0.00-20.00 [facility] ([place]) Comment on above: Performed By: #### G FR, ANEU, ADIFF, SARAH, ELVIA, CMP, CBC ####Tamar [address] [place], [place] [address] .NEUABSon 03-21-2024 Neutrophil, Absolute 6.1 10 3/mcL Normal 2.9-6.2 [facility] ([place]) Comment on above: Performed By: #### G , CLAUDIA, MARILEE, SARAH, W, CMP, CBC ####Tamarrosa m [address] [place] [address] .Urinalysis Microscopic (AO) on 03-21-2024 UA RBC 0-5 Abnormal None Seen [facility] ([place]) Comment on above: Performed By: #### H EPAC #### [place] [address] #### CMP, GFR, BILAI #### [place] [address] UA Squam Epithelial 0-5 Abnormal None Seen [facility] ([place]) Comment on above: Performed By: #### H EPAC #### [place] [address] #### CMP, GFR, BILAI #### [place] [address] UA WBC None Seen Normal None Seen [facility] ([place] Comment on above: Performed By: #### H EPAC #### [place] [address] #### CMP, GFR, BILAI #### [place] [address] CBCon 03-21-2024 Erythrocyte distribution width (RBC) [Ratio] 13.4 % Normal 11.5-14.5 [facility] ([place]) Comment on above: Performed By: #### G , CLAUDIA, MARILEE, SARAH, W, CMP, CBC ####Tamar [address] [place] [address] Hematocrit (Bld) [Volume fraction] 47.9 % Normal 42.0-52.0 [facility] ([place]) Comment on above: Performed By: #### G , CLAUDIA, MARILEE, SARAH, W, CMP, CBC ####Tamarrosa m [address] [place] [id number] Hgb 16.5 G/dL Normal 14.0-18.0 [facility] ([place] Comment on above: Performed By: #### G FR, ANEU, ADIFF, LIP, MDW, CMP, CBC ####Tamar [address] [place], [place] [address] MCH (RBC) [Entitic mass] 31.8 pg High 27.0-31.2 [facility] ([place] Comment on above: Performed By: #### G FR, ANEU, ADIFF, LIP, MDW, CMP, CBC ####Tamar [address] [place], [place] [address] MCHC 34.6 G/dL Normal 31.8-35.4 [facility] ([place] Comment on above: Performed By: #### G FR, ANEU, ADIFF, LIP, MDW, CMP, CBC ####Tamar [address] [place], [place] [address] MCV (RBC) [Entitic vol] 91.9 fL Normal 80.0-94.0 [facility] ([place] Comment on above: Performed By: #### G FR, ANEU, ADIFF, LIP, MDW, CMP, CBC ####Tamar [address] [place], [place] [address] Platelet 263 10 3/mcL Normal 130-400 [facility] ([place] Comment on above: Performed By: #### G FR, ANEU, ADIFF, LIP, MDW, CMP, CBC ####Tamar [address] [place], [place] [address] Platelet mean volume (Bld) [Entitic vol] 7.9 fL Normal 7.4-10.4 [facility] ([place] Comment on above: Performed By: #### G FR, ANEU, ADIFF, LIP, MDW, CMP, CBC ####Tamar [address] [place], [place] [address] RBC 5.21 10 6/mcL Normal 4.04-6.13 [facility] ([place] Comment on above: Performed By: #### G FR, ANEU, ADIFF, LIP, MDW, CMP, CBC ####Tamar [address] [place], [place] [address] WBC 8.8 10 3/mcL Normal 4.6-10.8 [facility] ([place] Comment on above: Performed By: #### G FR, ANEU, ADIFF, SARAH, W, CMP, CBC ####Tamar [address] [place], [place] [address] CMPon 03-21-2024 Albumin Level 2.9 G/dL Low 3.4-4.8 [facility] ([place] Comment on above: Performed By: #### G FR, ANEU, ADIFF, SARAH, W, CMP, CBC ####Tamar [address] [place], [place] [address] Albumin/Globulin [Mass ratio] 0.8 {ratio} Low 1.1-2.5 [facility] ([place] Comment on above: Performed By: #### G FR, ANEU, ADNICOLAS, SARAH, W, CMP, CBC ####Tamar [address] [place], [place] [address] ALP [Catalytic activity/Vol] 418 U/L High 40-135 [facility] ([place]) Comment on above: Performed By: #### G FR, ANEU, ADNICOLAS, SARAH, W, CMP, CBC ####Tamar [address] [place], [place] [address] ALT [Catalytic activity/Vol] 209 U/L High 16-63 [facility] ([place] Comment on above: Performed By: #### G FR, ANEU, ADIFF, LIP, MDW, CMP, CBC ####Tamar [address] [place], [place] [address] AST [Catalytic activity/Vol] 165 U/L High 10-40 [facility] ([place] Comment on above: Performed By: #### G FR, ANEU, ADIFF, LIP, MDW, CMP, CBC ####Tamar [address] [place], [place] [address] Bili Total 5.1 mg/dL High 0.2-1.0 [facility] ([place]) Comment on above: Result Comment: Use of this assay is not recommended for patients undergoing treatment with eltrombopag due to the potential for falsely elevated results. Performed By: #### G FR, ANEU, ADIFF, LIP, MDW, CMP, CBC ####Tamar [address] [place], [place] [address] BUN/Creatinine Ratio 8 ratio Normal 7-27 [facility] ([place]) Comment on above: Performed By: #### G FR, ANEU, ADIFF, LIP, MDW, CMP, CBC ####Tamar [address] [place], [place] [address] Calcium [Mass/Vol] 8.2 mg/dL Low 8.4-10.2 [facility] ([place]) Comment on above: Performed By: #### G FR, ANEU, ADIFF, LIP, MDW, CMP, CBC ####[address] [place], [place] [address] Chloride [Moles/Vol] 96 mmol/L Low 98-107 [facility] ([place]) Comment on above: Performed By: #### G FR, ANEU, ADIFF, LIP, MDW, CMP, CBC ####[address]amar [address] [place], [place] [address] CO2 [Moles/Vol] 29 mmol/L Normal 23-31 [facility] ([place] Comment on above: Performed By: #### G FR, ANEU, ADIFF, LIP, MDW, CMP, CBC ####Tamar [address] [place], [place] [address] Creatinine [Mass/Vol] 1.23 mg/dL Normal 0.70-1.30 [facility] ([place]) Comment on above: Performed By: #### G FR, ANEU, ADIFF, LIP, MDW, CMP, CBC ####Tamar [address] [place], [place] [address] Electrolyte Balance 8.0 mEq/L Normal 4.0-15.0 [facility] ([place]) Comment on above: Performed By: #### G FR, ANEU, ADIFF, LIP, MDW, CMP, CBC ####[address] [place], [place] [address] Globulin 3.8 G/dL Normal [facility] ([place] Comment on above: Performed By: #### G FR, ANEU, ADIFF, LIP, MDW, CMP, CBC ####[address] [place], [place] [address] Glucose [Mass/Vol] 300 mg/dL High 83-110 [facility] ([place]) Comment on above: Performed By: #### G FR, ANEU, ADIFF, LIP, MDW, CMP, CBC ####Tamar [address] [place], [place] [address] Potassium [Moles/Vol] 4.1 mmol/L Normal 3.5-5.1 [facility] ([place]) Comment on above: Performed By: #### G FR, ANEU, ADIFF, LIP, MDW, CMP, CBC ####Tamar [address] [place], [place] [address] Sodium [Moles/Vol] 133 mmol/L Low 136-145 [facility] ([place]) Comment on above: Performed By: #### G FR, ANEU, ADIFF, LIP, MDW, CMP, CBC ####[address] [place], [place] [address] Total Protein 6.7 G/dL Normal 6.4-8.2 [facility] ([place] Comment on above: Performed By: #### G FR, ANEU, ADIFF, LIP, MDW, CMP, CBC ####[address] [place], [place] [address] Urea nitrogen [Mass/Vol] 10 mg/dL Normal 7-18 [facility] ([place] Comment on above: Performed By: #### G FR, ANEU, ADIFF, LIP, MDW, CMP, CBC ####Tamar [address] [place], [place] [address] CT ABD/PELVIS W/ IV CONTRAST ONLYon 03-21-2024 CT ABD/PELVIS W/ IV CONTRAST ONLY ORIGINAL EXAMINATION: CT OF THE ABDOMEN AND PELVIS WITH CONTRAST03/21/2024 11:08 am TECHNIQUE: CT of the abdomen and pelvis was performed with the administration of intravenous contrast. Multiplanar reformatted images are provided for review. Automated exposure control, iterative reconstruction, and/or weight based adjustment of the mA/kV was utilized to reduce the radiation dose to as low as reasonably achievable. COMPARISON: CT abdomen pelvis 11/26/2023 HISTORY: ORDERING SYSTEM PROVIDED HISTORY: Reason for Exam: Pt c/o rt flank pain starting this morning. States he passed a kidney stone last month. abdominal pain. history of bladder cancer in 2006 FINDINGS: The included lung bases show similar appearance of right basilar atelectasis with small calcification. There is no visible pleural or pericardial effusion. The heart is normal in size. Central and peripheral intrahepatic biliary dilatation. Common bile duct is dilated measuring 15 mm in intrapancreatic part. A small isodense structure seen within the CBD/region of ampulla measuring approximately 12 mm. Otherwise the liver is unremarkable, no focal liver lesions seen. Two Left adrenal gland macroscopic fat containing lesion largest measuring approximately 26 mm are unchanged. The spleen, right adrenal gland, and pancreas are within normal limits. No obvious dilatation of pancreatic duct seen. Hypodense structure measuring approximately 4.0 cm containing air foci seen on pancreaticoduodenal region is likely a duodenal diverticulum. The gallbladder is surgically absent. The kidneys enhance symmetrically. No evidence of hydronephrosis. Left renal upper pole simple cyst measuring 23 mm unchanged. Interval decrease in left perinephric fat stranding. There is right renal perinephric fat stranding and pararenal facial thickening. Right posterolateral abdominal wall hernia containing fat with a defect size of 85 mm. The large and small bowel demonstrate no obstruction. Mild scattered diverticulosis without diverticulitis. The appendix is normal. No free intraperitoneal fluid or gas is identified. The aorta is normal in caliber, shows moderate to severe mixed calcified and atheromatous plaques. There is no lymphadenopathy. The prostate is unremarkable. No filling defects seen in the urinary bladder. Bilateral small fat containing inguinal hernias. There is no acute fracture or aggressive osseous lesion. Few scattered sclerotic densities within the pelvic bones and sacrum are stable, likely bone islands. IMPRESSION: 1. No evidence of obstructive uropathy. Stable appearance of right perirenal fat stranding which is likely nonspecific. Interval improvement of left renal hydronephrosis and perirenal fat stranding. 2. Post cholecystectomy, with intra and extrahepatic biliary dilatation. 3. 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 4. Unchanged appearance of large right lateral hernia. 5. 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 I have personally reviewed the images of this examination and agree with the resident's findings and interpretation. Interpreted by: Con Lara MD Preliminary Report By: Mal Villasenor Electronically signed By Con Lara MD Dictated Date: 03/21/2024 11:09:49 AM Prelim Date: 03/21/2024 12:40:26 PM Sign Date: 03/21/2024 12:40:26 PM Ordering Provider: GRAYSON ARNETT [facility] ([place]) LABORATORYOrdered By: SYSTEM SYSTEM on 03-21-2024 Albumin BCP dye [Mass/Vol] 2.9 G/dL Low 3.4 - 4.8 G/dL AO ADM SS Albumin/Globulin [Mass ratio] 0.8 {ratio} Low 1.1 - 2.5 ratio AO ADM SS ALP [Catalytic activity/Vol] 418 U/L High 40 - 135 U/L AO ADM SS ALT With P-5'-P [Catalytic activity/Vol] 209 U/L High 16 - 63 U/L AO ADM SS AST With P-5'-P [Catalytic activity/Vol] 165 U/L High 10 - 40 U/L AO ADM SS Basophil, Absolute 0.0 103/mcL Normal 0.0 - 0.2 10^3/mcL AO Workflow SS Basophils/100 WBC (Bld) 0.5 % Normal 0.0 - 2.5 % AO Workflow SS Bilirubin [Mass/Vol] 5.1 mg/dL High 0.2 - 1 .0 mg/dL AO ADM SS Comment on above: Interpretive Data: U se of this assay is not recommended for patients undergoing treatment with eltrombopag due to the potential for falsely elevated results. Calcium [Mass/Vol] 8.2 mg/dL Low 8.4 - 10. 2 mg/dL AO ADM SS Chloride [Moles/Vol] 96 mmol/L Low 98 - 10 7 mmol/L AO ADM SS CO2 [Moles/Vol] 29 mmol/L Normal 23 - 31 mmol/L AO ADM SS Creatinine [Mass/Vol] 1.23 mg/dL Normal 0.70 - 1.30 mg/dL AO ADM SS Electrolyte Balance 8.0 mEq/L Normal 4.0 - 15 .0 mEq/L AO ADM SS Eosinophil, Absolute 0.1 103/mcL Normal 0.0 - 0 .4 10^3/mcL AO Workflow SS Eosinophils/100 WBC (Bld) 2.1 % Normal 0.0 - 7.0 % AO Workflow SS Erythrocyte distribution width (RBC) [Ratio] 13.4 % Normal 11.5 - 14.5 % AO Workflow SS GFR/1.73 sq M.predicted among blacks MDRD (S/P/Bld) [Vol rate/Area] 69 ml/min/1.73sqm Invalid Interpretation Code AO Chemistry S Comment on above: Interpretive Data: GFR Population mean for , Non- Americans Ages 20-29 = 116 mL/min/1.73 sq.m. Ages 30-39 = 107 mL/min/1.73 sq.m. Ages 40-49 = 99 mL/min/1.73 sq.m. Ages 50-59 = 93 mL/min/1.73 sq.m. Ages 60-69 = 85 mL/min/1.73 sq.m. Ages 70+ = 75 mL/min/1.73 sq.m. Chronic Kidney Disease: Less than 60 mL/min/1.73 square meters End Stage Renal Disease: Less than 15 mL/min/1.73 square meters GFR/1.73 sq M.predicted among non-blacks MDRD (S/P/Bld) [Vol rate/Area] 57 ml/min/1.73sqm Invalid Interpretation Code AO Chemistry S Comment on above: Interpretive Data: GFR Population mean for , Non- Americans Ages 20-29 = 116 mL/min/1.73 sq.m. Ages 30-39 = 107 mL/min/1.73 sq.m. Ages 40-49 = 99 mL/min/1.73 sq.m. Ages 50-59 = 93 mL/min/1.73 sq.m. Ages 60-69 = 85 mL/min/1.73 sq.m. Ages 70+ = 75 mL/min/1.73 sq.m. Chronic Kidney Disease: Less than 60 mL/min/1.73 square meters End Stage Renal Disease: Less than 15 mL/min/1.73 square meters Globulin 3.8 G/dL Invalid Interpretation Code AO ADM SS Glucose [Mass/Vol] 300 mg/dL High 83 - 110 mg/dL AO ADM SS Hematocrit (Bld) [Volume fraction] 47.9 % Normal 42.0 - 52.0 % AO Workflow SS Hemoglobin (Bld) [Mass/Vol] 16.5 G/dL Normal 14.0 - 18.0 G/dL AO Workflow SS Lipase [Catalytic activity/Vol] 52 U/L Normal 16 - 77 U/L AO ADM SS Lymphocyte, Absolute 1.6 103/mcL Normal 0.8 - 3 .9 10^3/mcL AO Workflow SS Lymphocytes/100 WBC (Bld) 19.2 % Normal 10.0 - 50.0 % AO Workflow SS MCH (RBC) [Entitic mass] 31.8 pg High 27.0 - 31.2 pg AO Workflow SS MCHC 34.6 G/dL Normal 31.8 - 35.4 G/dL AO Workflow SS MCV (RBC) [Entitic vol] 91.9 fL Normal 80.0 - 94.0 fL AO Workflow SS Monocyte, Absolute 0.7 103/mcL Normal 0.2 - 1.0 10^3/mcL AO Workflow SS Monocytes/100 WBC (Bld) 8.4 % Normal 1.7 - 13.0 % AO Workflow SS Neutrophil, Absolute 6.1 103/mcL Normal 2.9 - 6 .2 10^3/mcL AO Workflow SS Neutrophils/100 WBC (Bld) 69.6 % Normal 37.0 - 80.0 % AO Workflow SS Platelet mean volume (Bld) [Entitic vol] 7.9 fL Normal 7.4 - 10.4 fL AO Workflow SS Platelets (Bld) [#/Vol] 263 103/mcL Normal 130 - 400 10^3/mcL AO Workflow SS Potassium [Moles/Vol] 4.1 mmol/L Normal 3.5 - 5.1 mmol/L AO ADM SS Protein [Mass/Vol] 6.7 G/dL Normal 6.4 - 8.2 G/dL AO ADM SS RBC (Bld) [#/Vol] 5.21 106/mcL Normal 4.04 - 6.1 3 10^6/mcL AO Workflow SS Sodium [Moles/Vol] 133 mmol/L Low 136 - 145 mmol/L AO ADM SS Urea nitrogen [Mass/Vol] 10 mg/dL Normal 7 - 18 mg/dL AO ADM SS Urea nitrogen/Creatinine [Mass ratio] 8 ratio Normal 7 - 27 ratio AO ADM SS WBC (Bld) [#/Vol] 8.8 103/mcL Normal 4.6 - 10.8 10^3/mcL AO Workflow SS LABORATORYOrdered By: Taylor canada on 03-21-2024 Appearance (U) Clear (03/21/24 10:28 AM) Normal Clear AO Auto Urine SS Bilirubin Ql (U) Moderate *ABN* (03/21/24 10:28 AM) Invalid Interpretation Code Negative AO Auto Urine SS Color (U) Gabbi Invalid Interpretation Code AO Auto Urine SS Glucose Test strip (U) [Mass/Vol] Negative Normal Negative AO Auto Urine SS Hemoglobin Auto test strip (U) [Mass/Vol] Negative (03/21/24 10:28 AM) Normal Negative AO Auto Urine SS Ketones Ql (U) Negative Normal Negative AO Auto Urine SS Monocyte distribution width Auto (Bld) [Entitic vol] Not tested (03/21/24 10:28 AM) Normal 0.00 - 20.00 AO Hematology S UA Leuk Est Negative (03/21/24 10:28 AM) Normal Negative AO Auto Urine SS UA Nitrite Negative (03/21/24 10:28 AM) Normal Negative AO Auto Urine SS UA pH 7.0 (03/21/24 10:28 AM) Normal 5.0 - 8.0 AO Auto Urine SS UA Protein 30 mg/dL Normal Negative AO Auto Urine SS UA RBC 0-5 /HPF Invalid Interpretation Code None Seen AO Auto Urine SS UA Spec Grav 1.020 (03/21/24 10:28 AM) Normal 1.015-1.025 AO Auto Urine SS UA Specimen Type Clean Catch (03/21/24 10:28 AM) Normal AO Auto Urine SS UA Squam Epithelial 0-5 /HPF Invalid Interpretation Code None Seen AO Auto Urine SS UA Urobilinogen 2.0 E.U./dL Invalid Interpretation Code 0.2-1.0 AO Auto Urine SS WBC LM.HPF (Urine sed) [#/Area] None Seen /HPF Normal None Seen AO Auto Urine SS LIPon 03-21-2024 Lipase Level 52 U/L Normal 16-77 [facility] ([place]) Comment on above: Performed By: #### G FR, ANEU, ADIFF, LIP, MDW, CMP, CBC ####Tamar [address] [place] [id number] UAon 03-21-2024 Color (U) Gabbi Normal [facility] ([place]) Comment on above: Performed By: #### H EPAC #### [place] [address] #### CMP, GFR, BILAI #### [address] [address] Glucose (U) [Mass/Vol] Negative Normal Negative [facility] ([place]) Comment on above: Performed By: #### H EPAC #### [place] [address] #### CMP, GFR, BILAI #### [address] [address] Ketones Ql (U) Negative Normal Negative [facility] ([place] Comment on above: Performed By: #### H EPAC #### [place] [address] #### CMP, GFR, BILAI #### [address] [address] UA Appear Clear Normal Clear [facility] ([place] Comment on above: Performed By: #### H EPAC #### [place] [address] #### CMP, GFR, BILAI #### [address] [address] UA Bili Moderate Abnormal Negative [facility] ([place] Comment on above: Performed By: #### H EPAC #### [place] [address] #### CMP, GFR, BILAI #### [address] [address] UA Blood Negative Normal Negative [facility] ([place] Comment on above: Performed By: #### H EPAC #### [place] [address] #### CMP, GFR, BILAI #### [address] [address] UA Leuk Est Negative Normal Negative [facility] ([place] Comment on above: Performed By: #### H EPAC #### [place] [address] #### CMP, GFR, BILAI #### [address] [address] UA Nitrite Negative Normal Negative [facility] ([place] Comment on above: Performed By: #### H EPAC #### [place] [address] #### CMP, GFR, BILAI #### [address] [address] UA pH 7.0 Normal 5.0 - 8.0 [facility] ([place] Comment on above: Performed By: #### H EPAC #### [place] [address] #### CMP, GFR, BILAI #### [address] [address] UA Protein 30 mg/dL Normal Negative [facility] ([place] Comment on above: Performed By: #### H EPAC #### [place] [address] #### CMP, GFR, BILAI #### [address] [address] UA Spec Grav 1.020 Normal 1.015-1.025 [facility] ([place] Comment on above: Performed By: #### H EPAC #### [place] [address] #### CMP, GFR, BILAI #### [address] [address] UA Specimen Type Clean Catch Normal [facility] ([place] Comment on above: Performed By: #### H EPAC #### [place] [address] #### CMP, GFR, BILAI #### [address] [address] UA Urobilinogen 2.0 E.U./dL Abnormal 0.2-1.0 [facility] ([place] Comment on above: Performed By: #### H EPAC #### [facility] [address] [place] [id number] #### CMP, GFR, BILAI #### [place] [id number] [place], [place] [address] US ABDOMEN LIMITEDon 024 US ABDOMEN LIMITED ORIGINAL EXAMINATION: RIGHT UPPER QUADRANT ULTRASOUND 03/02/2024 8:06 am COMPARISON: CT abdomen pelvis without contrast 11/26/2023 HISTORY: ORDERING SYSTEM PROVIDED HISTORY: Reason for Exam: elevated liver enzymes, evaluate for fatty liver or other causes FINDINGS: LIVER: The liver demonstrates diffuse increased echogenicity with mild intrahepatic bile duct prominence. There is no hepatic mass. BILIARY SYSTEM: Gallbladder is surgically absent. Common bile duct is prominent measuring 14.3 mm dimension. RIGHT KIDNEY: The right kidney is grossly unremarkable without evidence of hydronephrosis. Right kidney measures 12.4 x 6.2 x 5.1 cm. There is no hydronephrosis or stone disease. PANCREAS: Visualized portions of the pancreas are diffusely increased in echotexture. No solid or cystic lesion affects the pancreatic head. OTHER: No evidence of right upper quadrant ascites. IMPRESSION: 1. No solid or cystic lesion affecting the pancreatic head. Previous CT finding is not confirmed. 2. Fatty infiltration of the liver. 3. Prominence of the common bile duct and intrahepatic bile ducts. This may be related to prior cholecystectomy. If there is clinical concern for choledocholithiasis, MRCP or ERCP could be obtained for further evaluation. Interpreted by: Wilian Dexter DO Preliminary Report By: Wilian Dexter DO Electronically signed By Wilian Dexter DO Dictated Date: 03/02/2024 3:25:22 PM Prelim Date: 03/02/2024 3:29:07 PM Sign Date: 03/02/2024 3:29:07 PM Ordering Provider: PRICE KEY [facility] ([place]) .GFRon 02-26-2024 GFR 76 ml/min/1.73sqm Normal [facility] ([place]) Comment on above: Result Comment: GFR Population mean for , Non- Americans Ages 20-29 = 116 mL/min/1.73 sq.m. Ages 30-39 = 107 mL/min/1.73 sq.m. Ages 40-49 = 99 mL/min/1.73 sq.m. Ages 50-59 = 93 mL/min/1.73 sq.m. Ages 60-69 = 85 mL/min/1.73 sq.m. Ages 70+ = 75 mL/min/1.73 sq.m. Chronic Kidney Disease: Less than 60 mL/min/1.73 square meters End Stage Renal Disease: Less than 15 mL/min/1.73 square meters Performed By: #### H EPAC #### [place] [address] #### CMP, GFR, BILAI #### [address] [address] GFR Non- 63 ml/min/1.73sqm Normal [facility] ([place]) Comment on above: Result Comment: GFR Population mean for , Non- Americans Ages 20-29 = 116 mL/min/1.73 sq.m. Ages 30-39 = 107 mL/min/1.73 sq.m. Ages 40-49 = 99 mL/min/1.73 sq.m. Ages 50-59 = 93 mL/min/1.73 sq.m. Ages 60-69 = 85 mL/min/1.73 sq.m. Ages 70+ = 75 mL/min/1.73 sq.m. Chronic Kidney Disease: Less than 60 mL/min/1.73 square meters End Stage Renal Disease: Less than 15 mL/min/1.73 square meters Performed By: #### H EPA #### [address] [address] #### CMP, GFR, BILAI #### [address] [address] BILAIon 02-26-2024 Bili Indirect 0.7 mg/dL Normal [facility] ([place]) Comment on above: Performed By: #### H EPAC #### [address] [address] #### CMP, GFR, BILAI #### [address] [address] Bili Direct 2.6 mg/dL High 0.0-0.2 [facility] [facility] ([place]) Comment on above: Result Comment: Use of this assay is not recommended for patients undergoing treatment with eltrombopag due to the potential for falsely elevated results. Performed By: #### H EPAC #### [place] [address] #### CMP, GFR, BILAI #### [address] [address] CMPon 02-26-2024 Albumin Level 3.3 G/dL Low 3.4-4.8 [facility] ([place]) Comment on above: Performed By: #### H EPAC #### [place] [address] #### CMP, GFR, BILAI #### [address] [address] Albumin/Globulin [Mass ratio] 1.0 {ratio} Low 1.1-2.5 [facility] ([place]) Comment on above: Performed By: #### H EPAC #### [place] [address] #### CMP, GFR, BILAI #### [address] [address] ALP [Catalytic activity/Vol] 266 U/L High 40-135 [facility] ([place]) Comment on above: Performed By: #### H EPAC #### [place] [address] #### CMP, GFR, BILAI #### [address] [address] ALT [Catalytic activity/Vol] 191 U/L High 16-63 [facility] ([place]) Comment on above: Performed By: #### H EPAC #### [place] [address] #### CMP, GFR, BILAI #### [address] [address] AST [Catalytic activity/Vol] 136 U/L High 10-40 [facility] ([place]) Comment on above: Performed By: #### H EPAC #### [place] [address] #### CMP, GFR, BILAI #### [address] [address] Bili Total 3.3 mg/dL High 0.2-1.0 [facility] ([place]) Comment on above: Result Comment: Use of this assay is not recommended for patients undergoing treatment with eltrombopag due to the potential for falsely elevated results. Performed By: #### H EPAC #### [place] [address] #### CMP, GFR, BILAI #### [address] [address] BUN/Creatinine Ratio 6 ratio Low 7-27 [facility] ([place]) Comment on above: Performed By: #### H EPAC #### [place] [address] #### CMP, GFR, BILAI #### [address] [address] Calcium [Mass/Vol] 8.6 mg/dL Normal 8.4-10.2 [facility] ([place]) Comment on above: Performed By: #### H EPAC #### [place] [address] #### CMP, GFR, BILAI #### [address] [address] Chloride [Moles/Vol] 100 mmol/L Normal 98-107 [facility] ([place]) Comment on above: Performed By: #### H EPAC #### [place] [address] #### CMP, GFR, BILAI #### [address] [address] CO2 [Moles/Vol] 32 mmol/L High 23-31 [facility] ([place] Comment on above: Performed By: #### H EPAC #### [place] [address] #### CMP, GFR, BILAI #### [address] [address] Creatinine [Mass/Vol] 1.13 mg/dL Normal 0.70-1.30 [facility] ([place]) Comment on above: Performed By: #### H EPAC #### [place] [address] #### CMP, GFR, BILAI #### [address] [address] Electrolyte Balance 9.0 mEq/L Normal 4.0-15.0 [facility] ([place]) Comment on above: Performed By: #### H EPAC #### [place] [address] #### CMP, GFR, BILAI #### [address] [address] Globulin 3.4 G/dL Normal [facility] ([place] Comment on above: Performed By: #### H EPAC #### [place] [address] #### CMP, GFR, BILAI #### [address] [address] Glucose [Mass/Vol] 150 mg/dL High 83-110 [facility] ([place]) Comment on above: Performed By: #### H EPAC #### [place] [address] #### CMP, GFR, BILAI #### [address] [address] Potassium [Moles/Vol] 3.8 mmol/L Normal 3.5-5.1 [facility] ([place] Comment on above: Performed By: #### H EPAC #### [place] [address] #### CMP, GFR, BILAI #### [address] [address] Sodium [Moles/Vol] 141 mmol/L Normal 136-145 [facility] ([place]) Comment on above: Performed By: #### H EPAC #### [place] [address] #### CMP, GFR, BILAI #### [address] [address] Total Protein 6.7 G/dL Normal 6.4-8.2 [facility] ([place]) Comment on above: Performed By: #### H EPAC #### [place] [address] #### CMP, GFR, BILAI #### [address] [address] Urea nitrogen [Mass/Vol] 7 mg/dL Normal 7-18 [facility] ([place] Comment on above: Performed By: #### H EPAC #### [place] [address] #### CMP, GFR, BILAI #### [place] [id number] HEPACon 02-26-2024 Hep A IgM Ab Non-Reactive Normal Non-Reactive [facility] ([place] Comment on above: Performed By: #### H EPAC #### [place] [address] #### CMP, GFR, BILAI #### [place] [id number] Hep A IgM Ab Int [facility] ([place]) Comment on above: Result Comment: No s erological evidence of a current Hepatitis A infection. See Interp Performed By: #### H EPAC #### [place] [address] #### CMP, GFR, BILAI #### [address] [address] Hep B Core IgM Ab Non-Reactive Normal Non-Reactive [facility] ([place]) Comment on above: Performed By: #### H EPAC #### [place] [address] #### CMP, GFR, BILAI #### [place] [phone] Hep B Core IgM Ab Int [facility] ([place]) Comment on above: Result Comment: Samp les with a value < 0.80 Index are considered nonreactive (negative) for IgM antibodies to hepatitis B core antigen. See Interp Performed By: #### H EPAC #### [place] [address] #### CMP, GFR, BILAI #### [place] [address] Hep C Ab Non-Reactive Normal Non-Reactive [facility] ([place] Comment on above: Performed By: #### H EPAC #### [place] [address] #### CMP, GFR, BILAI #### [place] [address] Hep C Ab Int [facility] ([place]) Comment on above: Result Comment: Nonr eactive: Samples with a value < 0.80 are considered nonreactive (negative) for antibodies to HCV. A negative test result does not exclude the possibility of exposure to or infection with HCV. HCV antibodies may be undetectable in some stages of the infection and in some clinical conditions. See Interp Performed By: #### H EPAC #### [place] [address] #### CMP, GFR, BILAI #### [place] [address] Hep B Surf Ag Non-Reactive Normal Non-Reactive [facility] ([place]) Comment on above: Performed By: #### H EPAC #### [place] [address] #### CMP, GFR, BILAI #### [address] [address] MALMurray 02-26-2024 U Creatinine 172.8 mg/dL Normal 39.0-259.0 [facility] ([place] Comment on above: Performed By: #### H EPAC #### [place] [address] #### CMP, GFR, BILAI #### [address] [address] U Microalb 4631 mcg/dL Normal [facility] ([place]) Comment on above: Performed By: #### H EPAC #### [address] [address] #### CMP, GFR, BILAI #### [address] [address] U Ratio Alb/Cre 27 mcg/mg Normal 0-30 [facility] ([place]) Comment on above: Performed By: #### H EPAC #### [address] [address] #### CMP, GFR, BILAI #### [address] [address] .Auto Diffon 02-15-2024 Basophil, Absolute 0.1 10 3/mcL Normal 0.0-0.2 [facility] ([place]) Comment on above: Performed By: #### A NORMA, CBC, A1C, FT4, TSH, CMP, LIPID, PSA, ADIFF, GFR #### [address] [address] #### HCV1 #### [address] [address] Basophils/100 WBC (Bld) 0.8 % Normal 0.0-2.5 [facility] ([place]) Comment on above: Performed By: #### A NORMA, CBC, A1C, FT4, TSH, CMP, LIPID, PSA, ADIFF, GFR #### [address] [address] #### HCV1 #### [address] [address] Eosinophil, Absolute 0.2 10 3/mcL Normal 0.0-0.4 [facility] ([place]) Comment on above: Performed By: #### A NORMA, CBC, A1C, FT4, TSH, CMP, LIPID, PSA, ADIFF, GFR #### [address] [address] #### HCV1 #### [address] [address] Eosinophils/100 WBC (Bld) 3.4 % Normal 0.0-7.0 [facility] ([place]) Comment on above: Performed By: #### A NORMA, CBC, A1C, FT4, TSH, CMP, LIPID, PSA, ADIFF, GFR #### [address] [address] #### HCV1 #### [address] [address] Lymphocyte, Absolute 2.4 10 3/mcL Normal 0.8-3.9 [facility] ([place]) Comment on above: Performed By: #### A NORMA, CBC, A1C, FT4, TSH, CMP, LIPID, PSA, ADIFF, GFR #### [address] [address] #### HCV1 #### [address] [address] Lymphocytes/100 WBC (Bld) 35.2 % Normal 10.0-50.0 [facility] ([place]) Comment on above: Performed By: #### A NORMA, CBC, A1C, FT4, TSH, CMP, LIPID, PSA, ADIFF, GFR #### [address] [address] #### HCV1 #### [address] [address] Monocyte, Absolute 0.7 10 3/mcL Normal 0.2-1.0 [facility] ([place]) Comment on above: Performed By: #### A NORMA, CBC, A1C, FT4, TSH, CMP, LIPID, PSA, ADIFF, GFR #### [address] [address] #### HCV1 #### [address] [address] Monocytes/100 WBC (Bld) 9.7 % Normal 1.7-13.0 [facility] ([place]) Comment on above: Performed By: #### A NORMA, CBC, A1C, FT4, TSH, CMP, LIPID, PSA, ADIFF, GFR #### [address] [address] #### HCV1 #### [facility] [address] [place] [address] Neutrophils/100 WBC (Bld) 50.9 % Normal 37.0-80.0 [facility] ([place]) Comment on above: Performed By: #### A NORMA, CBC, A1C, FT4, TSH, CMP, LIPID, PSA, ADIFF, GFR #### [address] [address] #### HCV1 #### [facility] [address] [place] [address] .GFRon 02-15-2024 GFR Non- 56 ml/min/1.73sqm Normal [facility] ([place]) Comment on above: Result Comment: GFR Population mean for , Non- Americans Ages 20-29 = 116 mL/min/1.73 sq.m. Ages 30-39 = 107 mL/min/1.73 sq.m. Ages 40-49 = 99 mL/min/1.73 sq.m. Ages 50-59 = 93 mL/min/1.73 sq.m. Ages 60-69 = 85 mL/min/1.73 sq.m. Ages 70+ = 75 mL/min/1.73 sq.m. Chronic Kidney Disease: Less than 60 mL/min/1.73 square meters End Stage Renal Disease: Less than 15 mL/min/1.73 square meters Performed By: #### A NORMA, CBC, A1C, FT4, TSH, CMP, LIPID, PSA, ADIFF, GFR ####[address] [address]#### HCV1 ####[facility] [place] [address] GFR 67 ml/min/1.73sqm Normal [facility] ([place]) Comment on above: Result Comment: GFR Population mean for , Non- Americans Ages 20-29 = 116 mL/min/1.73 sq.m. Ages 30-39 = 107 mL/min/1.73 sq.m. Ages 40-49 = 99 mL/min/1.73 sq.m. Ages 50-59 = 93 mL/min/1.73 sq.m. Ages 60-69 = 85 mL/min/1.73 sq.m. Ages 70+ = 75 mL/min/1.73 sq.m. Chronic Kidney Disease: Less than 60 mL/min/1.73 square meters End Stage Renal Disease: Less than 15 mL/min/1.73 square meters Performed By: #### A NORMA, CBC, A1C, FT4, TSH, CMP, LIPID, PSA, ADIFF, GFR ####[place] [address]#### HCV1 ####[place] [address] .NEUABSon 02-15-2024 Neutrophil, Absolute 3.5 10 3/mcL Normal 2.9-6.2 [facility] ([place]) Comment on above: Performed By: #### A NORMA, CBC, A1C, FT4, TSH, CMP, LIPID, PSA, ADIFF, GFR #### [place] [address] #### HCV1 #### [place] [address] A1Con 02-15-2024 HbA1c (Bld) [Mass fraction] 6.2 % Normal 4.3-6.4 [facility] ([place]) Comment on above: Performed By: #### A NORMA, CBC, A1C, FT4, TSH, CMP, LIPID, PSA, ADIFF, GFR ####[place] [address]#### HCV1 ####[place] [address] CBCon 02-15-2024 Erythrocyte distribution width (RBC) [Ratio] 15.4 % High 11.5-14.5 [facility] ([place]) Comment on above: Performed By: #### A NORMA, CBC, A1C, FT4, TSH, CMP, LIPID, PSA, ADIFF, GFR #### [place] [address] #### HCV1 #### [place] [address] Hematocrit (Bld) [Volume fraction] 46.0 % Normal 42.0-52.0 [facility] ([place]) Comment on above: Performed By: #### A NORMA, CBC, A1C, FT4, TSH, CMP, LIPID, PSA, ADIFF, GFR #### [place] [address] #### HCV1 #### [place] [address] Hgb 16.3 G/dL Normal 14.0-18.0 [facility] ([place] Comment on above: Performed By: #### A NORMA, CBC, A1C, FT4, TSH, CMP, LIPID, PSA, ADIFF, GFR #### [place] [address] #### HCV1 #### [place] [address] MCH (RBC) [Entitic mass] 32.0 pg High 27.0-31.2 [facility] ([place] Comment on above: Performed By: #### A NORMA, CBC, A1C, FT4, TSH, CMP, LIPID, PSA, ADIFF, GFR #### [place] [address] #### HCV1 #### [place] [address] MCHC 35.4 G/dL Normal 31.8-35.4 [facility] ([place] Comment on above: Performed By: #### A NORMA, CBC, A1C, FT4, TSH, CMP, LIPID, PSA, ADIFF, GFR #### [place] [address] #### HCV1 #### [place] [address] MCV (RBC) [Entitic vol] 90.3 fL Normal 80.0-94.0 [facility] ([place] Comment on above: Performed By: #### A NORMA, CBC, A1C, FT4, TSH, CMP, LIPID, PSA, ADIFF, GFR #### [place] [address] #### HCV1 #### [place] [address] Platelet 191 10 3/mcL Normal 130-400 [facility] ([place] Comment on above: Performed By: #### A NORMA, CBC, A1C, FT4, TSH, CMP, LIPID, PSA, ADIFF, GFR #### [place] [address] #### HCV1 #### [place] [address] Platelet mean volume (Bld) [Entitic vol] 8.3 fL Normal 7.4-10.4 [facility] ([place] Comment on above: Performed By: #### A NORMA, CBC, A1C, FT4, TSH, CMP, LIPID, PSA, ADIFF, GFR #### [place] [address] #### HCV1 #### [place] [address] RBC 5.09 10 6/mcL Normal 4.04-6.13 [facility] ([place] Comment on above: Performed By: #### A NORMA, CBC, A1C, FT4, TSH, CMP, LIPID, PSA, ADIFF, GFR #### [place] [address] #### HCV1 #### [place] [address] WBC 6.9 10 3/mcL Normal 4.6-10.8 [facility] ([place] Comment on above: Performed By: #### A NORMA, CBC, A1C, FT4, TSH, CMP, LIPID, PSA, ADIFF, GFR #### [place] [address] #### HCV1 #### [place] [address] CMPon 02-15-2024 Albumin Level 3.3 G/dL Low 3.4-4.8 [facility] ([place] Comment on above: Performed By: #### A NORMA, CBC, A1C, FT4, TSH, CMP, LIPID, PSA, ADIFF, GFR ####[place] [address]#### HCV1 ####[address] [address] Albumin/Globulin [Mass ratio] 0.9 {ratio} Low 1.1-2.5 [facility] ([place] Comment on above: Performed By: #### A NORMA, CBC, A1C, FT4, TSH, CMP, LIPID, PSA, ADIFF, GFR ####[place] [address]#### HCV1 ####[address] [address] ALP [Catalytic activity/Vol] 229 U/L High 40-135 [facility] ([place]) Comment on above: Performed By: #### A NORMA, CBC, A1C, FT4, TSH, CMP, LIPID, PSA, ADIFF, GFR ####[place] [address]#### HCV1 ####[address] [address] ALT [Catalytic activity/Vol] 250 U/L High 16-63 [facility] ([place]) Comment on above: Performed By: #### A NORMA, CBC, A1C, FT4, TSH, CMP, LIPID, PSA, ADIFF, GFR ####[place] [address]#### HCV1 ####[address] [address] AST [Catalytic activity/Vol] 158 U/L High 10-40 [facility] ([place]) Comment on above: Performed By: #### A NORMA, CBC, A1C, FT4, TSH, CMP, LIPID, PSA, ADIFF, GFR ####[place] [address]#### HCV1 ####[address] [address] Bili Total 4.5 mg/dL High 0.2-1.0 [facility] ([place]) Comment on above: Result Comment: Use of this assay is not recommended for patients undergoing treatment with eltrombopag due to the potential for falsely elevated results. Performed By: #### A NORMA, CBC, A1C, FT4, TSH, CMP, LIPID, PSA, ADIFF, GFR ####[place] [address]#### HCV1 ####[address] [address] BUN/Creatinine Ratio 9 ratio Normal 7-27 [facility] ([place]) Comment on above: Performed By: #### A NORMA, CBC, A1C, FT4, TSH, CMP, LIPID, PSA, ADIFF, GFR ####[place] [address]#### HCV1 ####[address] [address] Calcium [Mass/Vol] 8.7 mg/dL Normal 8.4-10.2 [facility] ([place]) Comment on above: Performed By: #### A NORMA, CBC, A1C, FT4, TSH, CMP, LIPID, PSA, ADIFF, GFR ####[place] [address]#### HCV1 ####[address] [address] Chloride [Moles/Vol] 101 mmol/L Normal 98-107 [facility] ([place]) Comment on above: Performed By: #### A NORMA, CBC, A1C, FT4, TSH, CMP, LIPID, PSA, ADIFF, GFR ####[place] [address]#### HCV1 ####[address] [address] CO2 [Moles/Vol] 29 mmol/L Normal 23-31 [facility] ([place] Comment on above: Performed By: #### A NORMA, CBC, A1C, FT4, TSH, CMP, LIPID, PSA, ADIFF, GFR ####[place] [address]#### HCV1 ####[place] [address] Creatinine [Mass/Vol] 1.26 mg/dL Normal 0.70-1.30 [facility] ([place] Comment on above: Performed By: #### A NORMA, CBC, A1C, FT4, TSH, CMP, LIPID, PSA, ADIFF, GFR ####[place] [address]#### HCV1 ####[place] [address] Electrolyte Balance 8.0 mEq/L Normal 4.0-15.0 [facility] ([place]) Comment on above: Performed By: #### A NORMA, CBC, A1C, FT4, TSH, CMP, LIPID, PSA, ADIFF, GFR ####[place] [address]#### HCV1 ####[place] [address] Globulin 3.5 G/dL Normal [facility] ([place] Comment on above: Performed By: #### A NORMA, CBC, A1C, FT4, TSH, CMP, LIPID, PSA, ADIFF, GFR ####[place] [address]#### HCV1 ####[place] [address] Glucose [Mass/Vol] 173 mg/dL High 83-110 [facility] ([place]) Comment on above: Performed By: #### A NORMA, CBC, A1C, FT4, TSH, CMP, LIPID, PSA, ADIFF, GFR ####[place] [address]#### HCV1 ####[place] [address] Potassium [Moles/Vol] 4.0 mmol/L Normal 3.5-5.1 [facility] ([place] Comment on above: Performed By: #### A NORMA, CBC, A1C, FT4, TSH, CMP, LIPID, PSA, ADIFF, GFR ####[place] [address]#### HCV1 ####[place] [address] Sodium [Moles/Vol] 138 mmol/L Normal 136-145 [facility] ([place]) Comment on above: Performed By: #### A NORMA, CBC, A1C, FT4, TSH, CMP, LIPID, PSA, ADIFF, GFR ####[place] [address]#### HCV1 ####[place] [address] Total Protein 6.8 G/dL Normal 6.4-8.2 [facility] ([place] Comment on above: Performed By: #### A NORMA, CBC, A1C, FT4, TSH, CMP, LIPID, PSA, ADIFF, GFR ####[place] [address]#### HCV1 ####[place] [address] Urea nitrogen [Mass/Vol] 11 mg/dL Normal 7-18 [facility] ([place] Comment on above: Performed By: #### A NORMA, CBC, A1C, FT4, TSH, CMP, LIPID, PSA, ADIFF, GFR ####[place] [address]#### HCV1 ####[place] [address] FT4on 02-15-2024 Free T4 [Mass/Vol] 1.09 ng/dL Normal 0.76-1.46 [facility] ([place]) Comment on above: Performed By: #### A NORMA, CBC, A1C, FT4, TSH, CMP, LIPID, PSA, ADIFF, GFR ####[place] [address]#### HCV1 ####[place] [address] HCVon 02-15-2024 Hep C Ab Non-Reactive Normal Non-Reactive [facility] ([place] Comment on above: Performed By: #### A NORMA, CBC, A1C, FT4, TSH, CMP, LIPID, PSA, ADIFF, GFR ####[address] [place], [place] [address]#### HCV1 ####[place] [address] Hep C Ab Int Normal [facility] ([place] Comment on above: Result Comment: Nonr eactive: Samples with a value < 0.80 are considered nonreactive (negative) for antibodies to HCV. A negative test result does not exclude the possibility of exposure to or infection with HCV. HCV antibodies may be undetectable in some stages of the infection and in some clinical conditions. See Interp Performed By: #### A NORMA, CBC, A1C, FT4, TSH, CMP, LIPID, PSA, ADIFF, GFR ####[address] [place] [place] [id number]#### HCV1 ####[place] [address] LABORATORYOrdered By: SYSTEM SYSTEM on 02-15-2024 Albumin BCP dye [Mass/Vol] 3.3 G/dL Low 3.4 - 4.8 G/dL AO ADM SS Albumin/Globulin [Mass ratio] 0.9 {ratio} Low 1.1 - 2.5 ratio AO ADM SS ALP [Catalytic activity/Vol] 229 U/L High 40 - 135 U/L AO ADM SS ALT With P-5'-P [Catalytic activity/Vol] 250 U/L High 16 - 63 U/L AO ADM SS AST With P-5'-P [Catalytic activity/Vol] 158 U/L High 10 - 40 U/L AO ADM SS Basophil, Absolute 0.1 103/mcL Normal 0.0 - 0.2 10^3/mcL AO Workflow SS Basophils/100 WBC (Bld) 0.8 % Normal 0.0 - 2.5 % AO Workflow SS Bilirubin [Mass/Vol] 4.5 mg/dL High 0.2 - 1 .0 mg/dL AO ADM SS Comment on above: Interpretive Data: U se of this assay is not recommended for patients undergoing treatment with eltrombopag due to the potential for falsely elevated results. Calcium [Mass/Vol] 8.7 mg/dL Normal 8.4 - 10. 2 mg/dL AO ADM SS Chloride [Moles/Vol] 101 mmol/L Normal 98 - 10 7 mmol/L AO ADM SS CO2 [Moles/Vol] 29 mmol/L Normal 23 - 31 mmol/L AO ADM SS Creatinine [Mass/Vol] 1.26 mg/dL Normal 0.70 - 1.30 mg/dL AO ADM SS Electrolyte Balance 8.0 mEq/L Normal 4.0 - 15 .0 mEq/L AO ADM SS Eosinophil, Absolute 0.2 103/mcL Normal 0.0 - 0 .4 10^3/mcL AO Workflow SS Eosinophils/100 WBC (Bld) 3.4 % Normal 0.0 - 7.0 % AO Workflow SS Erythrocyte distribution width (RBC) [Ratio] 15.4 % High 11.5 - 14.5 % AO Workflow SS Free T4 [Mass/Vol] 1.09 ng/dL Normal 0.76 - 1. 46 ng/dL AO ADM SS GFR/1.73 sq M.predicted among blacks MDRD (S/P/Bld) [Vol rate/Area] 67 ml/min/1.73sqm Invalid Interpretation Code AO Chemistry S Comment on above: Interpretive Data: GFR Population mean for , Non- Americans Ages 20-29 = 116 mL/min/1.73 sq.m. Ages 30-39 = 107 mL/min/1.73 sq.m. Ages 40-49 = 99 mL/min/1.73 sq.m. Ages 50-59 = 93 mL/min/1.73 sq.m. Ages 60-69 = 85 mL/min/1.73 sq.m. Ages 70+ = 75 mL/min/1.73 sq.m. Chronic Kidney Disease: Less than 60 mL/min/1.73 square meters End Stage Renal Disease: Less than 15 mL/min/1.73 square meters GFR/1.73 sq M.predicted among non-blacks MDRD (S/P/Bld) [Vol rate/Area] 56 ml/min/1.73sqm Invalid Interpretation Code AO Chemistry S Comment on above: Interpretive Data: GFR Population mean for , Non- Americans Ages 20-29 = 116 mL/min/1.73 sq.m. Ages 30-39 = 107 mL/min/1.73 sq.m. Ages 40-49 = 99 mL/min/1.73 sq.m. Ages 50-59 = 93 mL/min/1.73 sq.m. Ages 60-69 = 85 mL/min/1.73 sq.m. Ages 70+ = 75 mL/min/1.73 sq.m. Chronic Kidney Disease: Less than 60 mL/min/1.73 square meters End Stage Renal Disease: Less than 15 mL/min/1.73 square meters Globulin 3.5 G/dL Invalid Interpretation Code AO ADM SS Glucose [Mass/Vol] 173 mg/dL High 83 - 110 mg/dL AO ADM SS HbA1c (Bld) [Mass fraction] 6.2 % Normal 4.3 - 6.4 % AO ADM SS Hematocrit (Bld) [Volume fraction] 46.0 % Normal 42.0 - 52.0 % AO Workflow SS Hemoglobin (Bld) [Mass/Vol] 16.3 G/dL Normal 14.0 - 18.0 G/dL AO Workflow SS Lymphocyte, Absolute 2.4 103/mcL Normal 0.8 - 3 .9 10^3/mcL AO Workflow SS Lymphocytes/100 WBC (Bld) 35.2 % Normal 10.0 - 50.0 % AO Workflow SS MCH (RBC) [Entitic mass] 32.0 pg High 27.0 - 31.2 pg AO Workflow SS MCHC 35.4 G/dL Normal 31.8 - 35.4 G/dL AO Workflow SS MCV (RBC) [Entitic vol] 90.3 fL Normal 80.0 - 94.0 fL AO Workflow SS Monocyte, Absolute 0.7 103/mcL Normal 0.2 - 1.0 10^3/mcL AO Workflow SS Monocytes/100 WBC (Bld) 9.7 % Normal 1.7 - 13.0 % AO Workflow SS Neutrophil, Absolute 3.5 103/mcL Normal 2.9 - 6 .2 10^3/mcL AO Workflow SS Neutrophils/100 WBC (Bld) 50.9 % Normal 37.0 - 80.0 % AO Workflow SS Platelet mean volume (Bld) [Entitic vol] 8.3 fL Normal 7.4 - 10.4 fL AO Workflow SS Platelets (Bld) [#/Vol] 191 103/mcL Normal 130 - 400 10^3/mcL AO Workflow SS Potassium [Moles/Vol] 4.0 mmol/L Normal 3.5 - 5.1 mmol/L AO ADM SS Prostate specific Ag [Mass/Vol] 0.79 ng/mL Normal 0.00 - 4.00 ng/mL AO ADM SS Protein [Mass/Vol] 6.8 G/dL Normal 6.4 - 8.2 G/dL AO ADM SS RBC (Bld) [#/Vol] 5.09 106/mcL Normal 4.04 - 6.1 3 10^6/mcL AO Workflow SS Sodium [Moles/Vol] 138 mmol/L Normal 136 - 145 mmol/L AO ADM SS TSH Qn 3.59 m[IU]/L Normal 0.36 - 3.74 mcIU/mL AO ADM SS Urea nitrogen [Mass/Vol] 11 mg/dL Normal 7 - 18 mg/dL AO ADM SS Urea nitrogen/Creatinine [Mass ratio] 9 ratio Normal 7 - 27 ratio AO ADM SS WBC (Bld) [#/Vol] 6.9 103/mcL Normal 4.6 - 10.8 10^3/mcL AO Workflow SS LABORATORYOrdered By: Sidra Sexton on 02-15-2024 Cholesterol [Mass/Vol] 170 mg/dL Normal 0 - 200 mg/dL AO ADM SS Comment on above: Interpretive Data: C holesterol Reference Interval: Less than 200 Desirable 200-239 Borderline high risk 240 and above High risk Cholesterol in HDL [Mass/Vol] 28 mg/dL Low 40 - 60 mg/dL AO ADM SS Cholesterol in LDL [Mass/Vol] 110 mg/dL Normal 0 - 130 mg/dL AO ADM SS Triglyceride [Mass/Vol] 158 mg/dL High 0 - 150 mg/dL AO ADM SS Comment on above: Interpretive Data: T riglyceride Reference Interval: Less than 150 Normal 150-199 Borderline high risk 200-499 High risk 500 or higher Very high risk LABORATORYOrdered By: Eden Sen on 02-15-2024 HCV Ab IA Ql Non-Reactive (02/15/24 8:46 AM) Normal Non-Reactive AH ADM SS HCV Ab IA Ql Nonreactive: Samples with a value < 0.80 are considered nonreactive (negative) for antibodies to HCV.A negative test result does not exclude the possibility of exposure to or infection with HCV. HCV antibodies may be undetectable in some stages of the infection and in some clinical conditions. Invalid Interpretation Code Chemistry S LIPIDon 02-15-2024 Cholesterol [Mass/Vol] 170 mg/dL Normal 0-200 [facility] ([place] Comment on above: Result Comment: Chol esterol Reference Interval: Less than 200 Desirable 200-239 Borderline high risk 240 and above High risk Performed By: #### A NORMA, CBC, A1C, FT4, TSH, CMP, LIPID, PSA, ADIFF, GFR ####[address] [place], [place] [address]#### HCV1 ####[address] [address] Cholesterol in HDL [Mass/Vol] 28 mg/dL Low 40-60 [facility] ([place] Comment on above: Performed By: #### A NORMA, CBC, A1C, FT4, TSH, CMP, LIPID, PSA, ADIFF, GFR ####[place] [address]#### HCV1 ####[address] [address] Cholesterol in LDL [Mass/Vol] 110 mg/dL Normal 0-130 [facility] ([place] Comment on above: Performed By: #### A NORMA, CBC, A1C, FT4, TSH, CMP, LIPID, PSA, ADIFF, GFR ####[address] [address]#### HCV1 ####[address] [address] Triglyceride [Mass/Vol] 158 mg/dL High 0-150 [facility] [place] Comment on above: Result Comment: Trig lyceride Reference Interval: Less than 150 Normal 150-199 Borderline high risk 200-499 High risk 500 or higher Very high risk Performed By: #### A NORMA, CBC, A1C, FT4, TSH, CMP, LIPID, PSA, ADIFF, GFR ####[place] [address]#### HCV1 ####[address] [address] PSAon 02-15-2024 Prostate Specific Antigen 0.79 ng/mL Normal 0.00-4.00 [facility] ([place] Comment on above: Performed By: #### A NORMA, CBC, A1C, FT4, TSH, CMP, LIPID, PSA, ADIFF, GFR ####[facility] [place] [id number]#### HCV1 ####[address] [address] TSHon 02-15-2024 TSH Qn 3.59 m[IU]/L Normal 0.36-3.74 [facility] ([place]) Comment on above: Performed By: #### A NORMA, CBC, A1C, FT4, TSH, CMP, LIPID, PSA, ADIFF, GFR ####[address] [place] [id number]#### HCV1 ####[place] [address] .Auto Diffon 11-26-2023 Basophil, Absolute 0.1 10 3/mcL Normal 0.0-0.2 [facility] ([place]) Comment on above: Performed By: #### M DW, ANEU, CBC, ADIFF ####[address] [place], [place] [address] Basophils/100 WBC (Bld) 1.1 % Normal 0.0-2.5 [facility] ([place] Comment on above: Performed By: #### M DW, ANEU, CBC, ADIFF ####[address] [place], [place] [address] Eosinophil, Absolute 0.2 10 3/mcL Normal 0.0-0.4 [facility] ([place]) Comment on above: Performed By: #### M DW, ANEU, CBC, ADIFF ####[address] [place], [place] [address] Eosinophils/100 WBC (Bld) 1.6 % Normal 0.0-7.0 [facility] ([place] Comment on above: Performed By: #### M DW, ANEU, CBC, ADIFF ####[address] [place], [place] [address] Lymphocyte, Absolute 2.0 10 3/mcL Normal 0.8-3.9 [facility] ([place]) Comment on above: Performed By: #### M DW, ANEU, CBC, ADIFF ####[address] [place], [place] [address] Lymphocytes/100 WBC (Bld) 16.2 % Normal 10.0-50.0 [facility] ([place] Comment on above: Performed By: #### M DW, ANEU, CBC, ADIFF ####[address] [place], [place] [address] Monocyte, Absolute 0.9 10 3/mcL Normal 0.2-1.0 [facility] ([place]) Comment on above: Performed By: #### M DW, ANEU, CBC, ADIFF ####[address] [place], [place] [address] Monocytes/100 WBC (Bld) 7.6 % Normal 1.7-13.0 [facility] ([place] Comment on above: Performed By: #### M DW, ANEU, CBC, ADIFF ####[address] [place], [place] [address] Neutrophils/100 WBC (Bld) 73.5 % Normal 37.0-80.0 [facility] ([place] Comment on above: Performed By: #### M DW, ANEU, CBC, ADIFF ####[address] [place], [place] [address] .GFRon 11-26-2023 GFR 54 ml/min/1.73sqm Normal [facility] ([place] Comment on above: Result Comment: GFR Population mean for , Non- Americans Ages 20-29 = 116 mL/min/1.73 sq.m. Ages 30-39 = 107 mL/min/1.73 sq.m. Ages 40-49 = 99 mL/min/1.73 sq.m. Ages 50-59 = 93 mL/min/1.73 sq.m. Ages 60-69 = 85 mL/min/1.73 sq.m. Ages 70+ = 75 mL/min/1.73 sq.m. Chronic Kidney Disease: Less than 60 mL/min/1.73 square meters End Stage Renal Disease: Less than 15 mL/min/1.73 square meters Performed By: #### G FR, LIP, CMP ####[address] [place], [place] [address] GFR Non- 44 ml/min/1.73sqm Normal [facility] ([place] Comment on above: Result Comment: GFR Population mean for , Non- Americans Ages 20-29 = 116 mL/min/1.73 sq.m. Ages 30-39 = 107 mL/min/1.73 sq.m. Ages 40-49 = 99 mL/min/1.73 sq.m. Ages 50-59 = 93 mL/min/1.73 sq.m. Ages 60-69 = 85 mL/min/1.73 sq.m. Ages 70+ = 75 mL/min/1.73 sq.m. Chronic Kidney Disease: Less than 60 mL/min/1.73 square meters End Stage Renal Disease: Less than 15 mL/min/1.73 square meters Performed By: #### G FR, LIP, CMP ####[place] [address] [place], [place] [address] .MDWon 11-26-2023 Monocyte Distribution Width 20.28 High 0.00-20.00 [facility] ([place] Comment on above: Result Comment: For adults in ED, MDW>20.0 may be associated with a higher risk of sepsis during the first 12hrs of hospital admission Performed By: #### H EPAC #### [place] [address] #### CMP, GFR, BILAI #### [address] [address] .NEUABSon 11-26-2023 Neutrophil, Absolute 8.8 10 3/mcL High 2.9-6.2 [facility] ([place]) Comment on above: Performed By: #### H EPAC #### [place] [address] #### CMP, GFR, BILAI #### [address] [address] .Urinalysis Microscopic (AO) on 11-26-2023 UA RBC 0-5 Abnormal None Seen [facility] ([place] Comment on above: Performed By: #### H EPAC #### [address] [address] #### CMP, GFR, BILAI #### [address] [address] UA Squam Epithelial 0-5 Abnormal None Seen [facility] ([place]) Comment on above: Performed By: #### H EPAC #### [address] [address] #### CMP, GFR, BILAI #### [address] [address] UA WBC 0-5 Abnormal None Seen [facility] ([place] Comment on above: Performed By: #### H EPAC #### [place] [address] #### CMP, GFR, BILAI #### [address] [address] CBCon 11-26-2023 Erythrocyte distribution width (RBC) [Ratio] 14.3 % Normal 11.5-14.5 [facility] ([place] Comment on above: Performed By: #### M DW, ANEU, CBC, ADIFF ####[address] [place], [place] [address] Hematocrit (Bld) [Volume fraction] 47.6 % Normal 42.0-52.0 [facility] ([place] Comment on above: Performed By: #### M DW, ANEU, CBC, ADIFF ####[address] [place], [place] [address] Hgb 16.5 G/dL Normal 14.0-18.0 [facility] ([place] Comment on above: Performed By: #### M DW, ANEU, CBC, ADIFF ####[address] [place], [place] [address] MCH (RBC) [Entitic mass] 30.8 pg Normal 27.0-31.2 [facility] ([place] Comment on above: Performed By: #### M DW, ANEU, CBC, ADIFF ####[address] [place], [place] [address] MCHC 34.7 G/dL Normal 31.8-35.4 [facility] ([place] Comment on above: Performed By: #### CLAUDIA NORMAN, CBC, ADIFF ####[address] [place], [place] [address] MCV (RBC) [Entitic vol] 88.6 fL Normal 80.0-94.0 [facility] ([place] Comment on above: Performed By: #### Amee BUSCH ANEU, CBC, ADIFF ####[address] [place], [place] [address] Platelet 273 10 3/mcL Normal 130-400 [facility] ([place] Comment on above: Performed By: #### Amee BUSCH ANEU, CBC, ADIFF ####[address] [place], [place] [address] Platelet mean volume (Bld) [Entitic vol] 7.4 fL Normal 7.4-10.4 [facility] ([place] Comment on above: Performed By: #### CLAUDIA NORMAN, CBC, ADIFF ####[address] [place], [place] [address] RBC 5.38 10 6/mcL Normal 4.04-6.13 [facility] ([place] Comment on above: Performed By: #### Amee BUSCH ANEU, CBC, ADIFF ####[address] [place], [place] [address] WBC 12.0 10 3/mcL High 4.6-10.8 [facility] ([place] Comment on above: Performed By: #### M JO-ANN ANEU, CBC, ADIFF ####[address] [place], [place] [address] CMPon 11-26-2023 Albumin Level 3.4 G/dL Normal 3.4-4.8 [facility] ([place] Comment on above: Performed By: #### G FR, LIP, CMP ####[address] [place], [place] [address] Albumin/Globulin [Mass ratio] 0.9 {ratio} Low 1.1-2.5 [facility] ([place] Comment on above: Performed By: #### G FR, LIP, CMP ####[address] [place], [place] [address] ALP [Catalytic activity/Vol] 134 U/L Normal 40-135 [facility] ([place] Comment on above: Performed By: #### G , LIP, CMP ####[address] [place], [place] [address] ALT [Catalytic activity/Vol] 66 U/L High 16-63 [facility] ([place] Comment on above: Performed By: #### G FR, LIP, CMP ####[address] [place], [place] [address] AST [Catalytic activity/Vol] 33 U/L Normal 10-40 [facility] ([place] Comment on above: Performed By: #### Michelle CABRERA LIP, CMP ####[address] [place], [place] [address] Bili Total 0.6 mg/dL Normal 0.2-1.0 [facility] ([place] Comment on above: Result Comment: Use of this assay is not recommended for patients undergoing treatment with eltrombopag due to the potential for falsely elevated results. Performed By: #### Michelle CABRERA LIP, CMP ####[address] [place], [place] [address] BUN/Creatinine Ratio 8 ratio Normal 7-27 [facility] ([place]) Comment on above: Performed By: #### Michelle CABRERA, LIP, CMP ####[address] [place], [place] [address] Calcium [Mass/Vol] 9.4 mg/dL Normal 8.4-10.2 [facility] ([place]) Comment on above: Performed By: #### Michelle CABRERA, LIP, CMP ####[address] [place], [place] [address] Chloride [Moles/Vol] 100 mmol/L Normal 98-107 [facility] ([place]) Comment on above: Performed By: #### Michelle FR, LIP, CMP ####[address] [place], [place] [address] CO2 [Moles/Vol] 34 mmol/L High 23-31 [facility] ([place] Comment on above: Performed By: #### G FR, LIP, CMP ####[address] [place], [place] [address] Creatinine [Mass/Vol] 1.54 mg/dL High 0.70-1.30 [facility] ([place] Comment on above: Performed By: #### Michelle FR, LIP, CMP ####[address] [place], [place] [address] Electrolyte Balance 6.0 mEq/L Normal 4.0-15.0 [facility] ([place]) Comment on above: Performed By: #### Michelle CABRERA, LIP, CMP ####[address] [place], [place] [address] Globulin 3.7 G/dL Normal [facility] ([place] Comment on above: Performed By: #### Michelle CABRERA, LIP, CMP ####[address] [place], [place] [address] Glucose [Mass/Vol] 218 mg/dL High 83-110 [facility] ([place]) Comment on above: Performed By: #### G , LIP, CMP ####[address] [place], [place] [address] Potassium [Moles/Vol] 5.3 mmol/L High 3.5-5.1 [facility] ([place] Comment on above: Performed By: #### Michelle FR, LIP, CMP ####[address] [place], [place] [address] Sodium [Moles/Vol] 140 mmol/L Normal 136-145 [facility] ([place]) Comment on above: Performed By: #### G FR, LIP, CMP ####[address] [place], [place] [address] Total Protein 7.1 G/dL Normal 6.4-8.2 [facility] ([place] Comment on above: Performed By: #### G FR, LIP, CMP ####[address] [place], [place] [address] Urea nitrogen [Mass/Vol] 13 mg/dL Normal 7-18 [facility] ([place] Comment on above: Performed By: #### G , SARAH, [facility] ####[address] [place], [place] [address] CT ABDOMEN/PELVIS W/O CONTRA Rodriguez 11-26-2023 CT ABDOMEN/PELVIS W/O CONTRAST ORIGINAL EXAMINATION: CT OF THE ABDOMEN AND PELVIS WITHOUT CONTRAST 11/26/2023 9:53 pm TECHNIQUE: CT of the abdomen and pelvis was performed without the administration of intravenous contrast. Multiplanar reformatted images are provided for review. Automated exposure control, iterative reconstruction, and/or weight based adjustment of the mA/kV was utilized to reduce the radiation dose to as low as reasonably achievable. COMPARISON: None. HISTORY: ORDERING SYSTEM PROVIDED HISTORY: Reason for Exam: LEFT flank pain FINDINGS: Visualized portion of the lower chest demonstrates no acute abnormality. The liver is in normal limits for size and demonstrates a smooth contour. Parenchyma appears grossly minus. Status post cholecystectomy. Mild prominence of the common bile duct. No intrahepatic bile duct dilation. The spleen is normal in appearance. A small rounded soft tissue nodule inferior to the spleen measuring 1.6 cm likely represents a small splenule. At the level of the pancreatic head, there is a 2.5 x 3.1 cm well-circumscribed posteriorly projecting soft tissue prominence. The remainder of the pancreas is normal in appearance. No pancreatic duct dilation. A 1.8 cm rounded lesion is appreciated of the left adrenal gland which demonstrates macroscopic fat, likely representing an adrenal myelolipoma. The right adrenal gland is unremarkable in appearance. The kidneys are within normal limits for size. Asymmetric perinephric stranding is appreciated about the left kidney. There is an exophytic cyst arising from the superior pole of the left kidney measuring approximately 2.0 x 2.1 cm, likely benign. Grade 1 hydronephrosis is appreciated on the left with mild hydroureter. Periureteral stranding is also noted along the left ureter. Mild right perinephric stranding is noted. No hydroureteronephrosis or nephroureterolithiasis is identified. Within the urinary bladder, there is a small focus of hyperdensity along the dependent bladder adjacent to the left UVJ (series 2, image 102) which may represent a calculus. The urinary bladder is decompressed. Small hiatal hernia. Partial distention of the gastric lumen with ingested contents. Bowel gas is noted to the level of the rectum in a nonobstructive pattern. The appendix is visualized and unremarkable. Diverticula are noted within the descending and sigmoid colon without evidence of diverticulitis. No abdominal free air or free fluid. No abdominal or pelvic adenopathy. The abdominal aorta is nonaneurysmal in size with scattered mild calcified atherosclerotic plaque. The osseous structures demonstrate no evidence of acute fracture or aggressive lesion. A large right-sided fat containing lumbar hernia is appreciated. Small bilateral fat containing inguinal hernias. Soft tissues otherwise unremarkable. IMPRESSION: 1. Grade 1-2 left hydroureteronephrosis with perinephric and periureteral stranding. This is associated with a small hyperdensity dependently within the bladder likely represents a recently passed left renal calculus. 2. Abnormal contour of the posterior aspect of the pancreatic head, incompletely characterized on this study. Consider outpatient follow-up with pancreatic protocol MRI/MRCP for further characterization. 3. 1.8 cm left adrenal mass, likely benign adrenal myelolipoma. Interpreted by: Wagner Ritter Preliminary Report By: Wagner Ritter Electronically signed By Wagner Ritter Dictated Date: 11/26/2023 10:59:36 PM Prelim Date: 11/26/2023 11:20:40 PM Sign Date: 11/26/2023 11:20:40 PM Ordering Provider: KRYSTEN CHESTER [facility] ([place]) LABORATORYOrdered By: Saira Sterling on 11-26-2023 Appearance (U) Clear (11/26/23 9:55 PM) Normal Clear AO Auto Urine SS Bilirubin Ql (U) Negative (11/26/23 9:55 PM) Normal Negative AO Auto Urine SS Color (U) Yellow (11/26/23 9:55 PM) Normal AO Auto Urine SS Glucose Test strip (U) [Mass/Vol] Negative Normal Negative AO Auto Urine SS Hemoglobin Auto test strip (U) [Mass/Vol] Small *ABN* (11/26/23 9:55 PM) Invalid Interpretation Code Negative AO Auto Urine SS Ketones Ql (U) Negative Normal Negative AO Auto Urine SS UA Leuk Est Negative (11/26/23 9:55 PM) Normal Negative AO Auto Urine SS UA Nitrite Negative (11/26/23 9:55 PM) Normal Negative AO Auto Urine SS UA pH 7.5 (11/26/23 9:55 PM) Normal 5.0 - 8.0 AO Auto Urine SS UA Protein 30 mg/dL Normal Negative AO Auto Urine SS UA RBC 0-5 /HPF Invalid Interpretation Code None Seen AO Auto Urine SS UA Spec Grav 1.020 (11/26/23 9:55 PM) Normal 1.015-1.025 AO Auto Urine SS UA Specimen Type Void (11/26/23 9:55 PM) Normal AO Auto Urine SS UA Squam Epithelial 0-5 /HPF Invalid Interpretation Code None Seen AO Auto Urine SS UA Urobilinogen 1.0 E.U./dL Normal 0.2-1.0 AO Auto Urine SS WBC LM.HPF (Urine sed) [#/Area] 0-5 /HPF Invalid Interpretation Code None Seen AO Auto Urine SS LABORATORYOrdered By: SYSTEM SYSTEM on 11-26-2023 Albumin BCP dye [Mass/Vol] 3.4 G/dL Normal 3.4 - 4.8 G/dL AO ADM SS Albumin/Globulin [Mass ratio] 0.9 {ratio} Low 1.1 - 2.5 ratio AO ADM SS ALP [Catalytic activity/Vol] 134 U/L Normal 40 - 135 U/L AO ADM SS ALT With P-5'-P [Catalytic activity/Vol] 66 U/L High 16 - 63 U/L AO ADM SS AST With P-5'-P [Catalytic activity/Vol] 33 U/L Normal 10 - 40 U/L AO ADM SS Basophil, Absolute 0.1 103/mcL Normal 0.0 - 0.2 10^3/mcL AO Workflow SS Basophils/100 WBC (Bld) 1.1 % Normal 0.0 - 2.5 % AO Workflow SS Bilirubin [Mass/Vol] 0.6 mg/dL Normal 0.2 - 1 .0 mg/dL AO ADM SS Comment on above: Interpretive Data: U se of this assay is not recommended for patients undergoing treatment with eltrombopag due to the potential for falsely elevated results. Calcium [Mass/Vol] 9.4 mg/dL Normal 8.4 - 10. 2 mg/dL AO ADM SS Chloride [Moles/Vol] 100 mmol/L Normal 98 - 10 7 mmol/L AO ADM SS CO2 [Moles/Vol] 34 mmol/L High 23 - 31 mmol/L AO ADM SS Creatinine [Mass/Vol] 1.54 mg/dL High 0.70 - 1.30 mg/dL AO ADM SS Electrolyte Balance 6.0 mEq/L Normal 4.0 - 15 .0 mEq/L AO ADM SS Eosinophil, Absolute 0.2 103/mcL Normal 0.0 - 0 .4 10^3/mcL AO Workflow SS Eosinophils/100 WBC (Bld) 1.6 % Normal 0.0 - 7.0 % AO Workflow SS Erythrocyte distribution width (RBC) [Ratio] 14.3 % Normal 11.5 - 14.5 % AO Workflow SS GFR/1.73 sq M.predicted among blacks MDRD (S/P/Bld) [Vol rate/Area] 54 ml/min/1.73sqm Invalid Interpretation Code AO Chemistry S Comment on above: Interpretive Data: GFR Population mean for , Non- Americans Ages 20-29 = 116 mL/min/1.73 sq.m. Ages 30-39 = 107 mL/min/1.73 sq.m. Ages 40-49 = 99 mL/min/1.73 sq.m. Ages 50-59 = 93 mL/min/1.73 sq.m. Ages 60-69 = 85 mL/min/1.73 sq.m. Ages 70+ = 75 mL/min/1.73 sq.m. Chronic Kidney Disease: Less than 60 mL/min/1.73 square meters End Stage Renal Disease: Less than 15 mL/min/1.73 square meters GFR/1.73 sq M.predicted among non-blacks MDRD (S/P/Bld) [Vol rate/Area] 44 ml/min/1.73sqm Invalid Interpretation Code AO Chemistry S Comment on above: Interpretive Data: GFR Population mean for , Non- Americans Ages 20-29 = 116 mL/min/1.73 sq.m. Ages 30-39 = 107 mL/min/1.73 sq.m. Ages 40-49 = 99 mL/min/1.73 sq.m. Ages 50-59 = 93 mL/min/1.73 sq.m. Ages 60-69 = 85 mL/min/1.73 sq.m. Ages 70+ = 75 mL/min/1.73 sq.m. Chronic Kidney Disease: Less than 60 mL/min/1.73 square meters End Stage Renal Disease: Less than 15 mL/min/1.73 square meters Globulin 3.7 G/dL Invalid Interpretation Code AO ADM SS Glucose [Mass/Vol] 218 mg/dL High 83 - 110 mg/dL AO ADM SS Hematocrit (Bld) [Volume fraction] 47.6 % Normal 42.0 - 52.0 % AO Workflow SS Hemoglobin (Bld) [Mass/Vol] 16.5 G/dL Normal 14.0 - 18.0 G/dL AO Workflow SS Lipase [Catalytic activity/Vol] 35 U/L Normal 16 - 77 U/L AO ADM SS Lymphocyte, Absolute 2.0 103/mcL Normal 0.8 - 3 .9 10^3/mcL AO Workflow SS Lymphocytes/100 WBC (Bld) 16.2 % Normal 10.0 - 50.0 % AO Workflow SS MCH (RBC) [Entitic mass] 30.8 pg Normal 27.0 - 31.2 pg AO Workflow SS MCHC 34.7 G/dL Normal 31.8 - 35.4 G/dL AO Workflow SS MCV (RBC) [Entitic vol] 88.6 fL Normal 80.0 - 94.0 fL AO Workflow SS Monocyte distribution width Auto (Bld) [Entitic vol] 20.28 1 High 0.00 - 20.00 AO Workflow SS Comment on above: Result Comment: For adults in ED, MDW>20.0 may be associated with a higher risk of sepsis during the first 12hrs of hospital admission Monocyte, Absolute 0.9 103/mcL Normal 0.2 - 1.0 10^3/mcL AO Workflow SS Monocytes/100 WBC (Bld) 7.6 % Normal 1.7 - 13.0 % AO Workflow SS Neutrophil, Absolute 8.8 103/mcL High 2.9 - 6 .2 10^3/mcL AO Workflow SS Neutrophils/100 WBC (Bld) 73.5 % Normal 37.0 - 80.0 % AO Workflow SS Platelet mean volume (Bld) [Entitic vol] 7.4 fL Normal 7.4 - 10.4 fL AO Workflow SS Platelets (Bld) [#/Vol] 273 103/mcL Normal 130 - 400 10^3/mcL AO Workflow SS Potassium [Moles/Vol] 5.3 mmol/L High 3.5 - 5.1 mmol/L AO ADM SS Protein [Mass/Vol] 7.1 G/dL Normal 6.4 - 8.2 G/dL AO ADM SS RBC (Bld) [#/Vol] 5.38 106/mcL Normal 4.04 - 6.1 3 10^6/mcL AO Workflow SS Sodium [Moles/Vol] 140 mmol/L Normal 136 - 145 mmol/L AO ADM SS Urea nitrogen [Mass/Vol] 13 mg/dL Normal 7 - 18 mg/dL AO ADM SS Urea nitrogen/Creatinine [Mass ratio] 8 ratio Normal 7 - 27 ratio AO ADM SS WBC (Bld) [#/Vol] 12.0 103/mcL High 4.6 - 10.8 10^3/mcL AO Workflow SS LIPon 11-26-2023 Lipase Level 35 U/L Normal 16-77 [facility] ([place] Comment on above: Performed By: #### G FR, LIP, CMP ####[address] [address] UAon 11-26-2023 Color (U) Yellow Normal [facility] ([place] Comment on above: Performed By: #### H EPAC #### [place] [address] #### CMP, GFR, BILAI #### [address] [address] Glucose (U) [Mass/Vol] Negative Normal Negative [facility] ([place] Comment on above: Performed By: #### H EPAC #### [place] [address] #### CMP, GFR, BILAI #### [address] [address] Ketones Ql (U) Negative Normal Negative [facility] ([place] Comment on above: Performed By: #### H EPAC #### [place] [address] #### CMP, GFR, BILAI #### [address] [address] UA Appear Clear Normal Clear [facility] ([place] Comment on above: Performed By: #### H EPAC #### [place] [address] #### CMP, GFR, BILAI #### [address] [address] UA Blood Small Abnormal Negative [facility] ([place] Comment on above: Performed By: #### H EPAC #### [place] [address] #### CMP, GFR, BILAI #### [address] [address] UA Leuk Est Negative Normal Negative [facility] [place] Comment on above: Performed By: #### H EPAC #### [place] [address] #### CMP, GFR, BILAI #### [address] [address] UA Nitrite Negative Normal Negative [facility] ([place] Comment on above: Performed By: #### H EPAC #### [place] [address] #### CMP, GFR, BILAI #### [address] [address] UA pH 7.5 Normal 5.0 - 8.0 [facility] ([place] Comment on above: Performed By: #### H EPAC #### [place] [address] #### CMP, GFR, BILAI #### [address] [address] UA Protein 30 mg/dL Normal Negative [facility] ([place] Comment on above: Performed By: #### H EPAC #### [place] [address] #### CMP, GFR, BILAI #### [address] [address] UA Spec Grav 1.020 Normal 1.015-1.025 [facility]ly [facility] ([place]) Comment on above: Performed By: #### H EPAC #### [place] [address] #### CMP, GFR, BILAI #### [address] [address] UA Specimen Type Void Normal [facility] [place] Comment on above: Performed By: #### H EPAC #### [address] [address] #### CMP, GFR, BILAI #### [address] [address] UA Urobilinogen 1.0 E.U./dL Normal 0.2-1.0 [facility] [place] Comment on above: Performed By: #### H EPAC #### [address] [address] #### CMP, GFR, BILAI #### [address] [address] Urobilinogen (U) [Mass/Vol] Negative Normal Negative [facility] ([place] Comment on above: Performed By: #### H EPAC #### [place] [address] #### CMP, GFR, BILAI #### [address] [address] NSE (add)on 04-29-2023 NSE (add) Patient Age/Sex Loca tion Account Attending Physician DIANA THURSTON / LAB [id number] Amee Olson Specimen: [id number] Received: 04/30/23 Status: SOUT Req Num: [id number] Spec Type: IMMUNO Subm Dr: Dr. Ceasar Thomas MD PHYSICIAN INSTITUTION [place] [address] SPECIMEN INFORMATION: Tissue Source: Left parotid mass Clinical Info: Left parotid mass Specimen Number: [id number] CPT code: 85359, 34656 x11 METHODOLOGY: Deparaffinized sections of prefer/formalin-fixed tissue or PAP/DQ stained slides are incubated with monoclonal/polyclonal antibodies/oligonucleotid e probes. Localization is made via biotin free immunoperoxidase method. Appropriate controls are performed and reacted as expected. Results on target cell population are indicated in the following table: RESULTS: ANTIBODY / CLONE RESULT GATA3 (L50-823) negative AE1-3 (AE1/AE3/PCK26) negative CK7 (OV-TL12/30) positive, occasional CK8 (33yqweW63) negative CK20 (KS20.8) negative BCL-2 (bcl-2/100/D5) positive Vimentin (V9) positive, stromal, rare 34BE12 (34BE12) positive, focal S-100 (4C4.9) positive, focal, dim NSE Neuron Specific Enolase negative P53 (DO-7) negative, null pattern Ki-67 (30-9) positive, 1% These tests were developed and their performance characteristics determined by [facility]. They may not have been cleared or approved by the U.S. Food and Drug Administration. The FDA has determined that such clearance or approval is not necessary. The above immunohistochemical/dualI SH markers are ordered and reviewed by the Pathologist. INTERPRETATION: Left parotid mass, fine needle aspiration: Consistent with basal cell adenoma (monomorphic adenoma). AM:sue 05/01/2023 Signed (signature on file) Dr. Jian Sanchez, 05/01/23 1244 Normal [facility] Comment on above: Performed By: #### P NSE. #### [facility] [address] [place], [address] Surgery Specimen Level Ike 04-29-2023 Surgery Specimen Level IV Patient Age/Sex Location Account Attending Physician DIANA THURSTON 77/M LAB [id number] Amee Olson Specimen: [id number] Received: 04/29/23-1030 Status: [facility] Num: [id number] Spec Type: ASP HERE Subm Dr: Dr. Ceasar Thomas MD HEADER OPERATION: Fine needle aspiration left parotid mass PRE-OP DIAGNOSIS: Left parotid mass TISSUE SUBMITTED: Left parotid mass DIAGNOSIS CYTOLOGY Fine needle aspiration, left parotid mass (smears and cell block): Consistent with basal cell adenoma (monomorphic adenoma) AM:sue 04/30/2023 COMMENT A fine needle aspiration was performed and the specimen is evaluated at the time of FNA by Dr. Sanchez. Immediate Evaluation = Negative for malignant cells. Favor sialadenitis. Case has been reviewed in consultation with Dr. Adames who concurs with the above diagnosis. IDC:SJ CYTOLOGY STUDY Slides are reviewed. CYTOLOGY GROSS Received is 0.2 ml of reddish fluid labeled with the patient's name, and designated left parotid mass. Four imprints and two paps are made from the submitted fluid and the rest is added to CytoLyt for cell block preparation. Submitted for cytology study. / sue 04/29/2023 TC:1 CPT: 11894, 62938, 68555, 76824 Signed (signature on file) Dr. Jian Sanchez, 05/01/23 1248 Normal [facility] Comment on above: Performed By: #### L 500.4100, L100.0100, L500.4050, L506.1000, L509.3000, L501.9520 #### [facility] [place], [address] Surgery Visit Reporton 02-10 Surgery Visit Report [facility] [address] [place] [address] OFFICE VISIT Date of Service: 02/10/23 MR#: [id number] Acct: [id number] Name: DIANA THURSTON Rep #: [id number] : 1945 Provider: Dr. Luis Antonio puente MD Age/Sex: 77/M Location: [facility] Status: Signed Intake Vital Signs 01/15/23 09:42 Height 5 ft 7 in Intake Visit Reasons: DRAIN PULLED 01/27 Chief Complaint: F/U drain removal Financial Report Service Sales Agent Required: No Is patient in pain?: No Allergies No Known Allergies Allergy (Verified 02/10/23 12:55) Medications hydrochlorothiazide 12.5 mg tablet 12.5 tab PO DAILY 04/09/22 [History Confirmed 02/10/23] losartan 50 mg tablet 50 mg PO DAILY 04/09/22 [History Confirmed 02/10/23] omeprazole 40 mg capsule,delayed release 40 mg PO DAILY 04/09/22 [History Confirmed 02/10/23] pravastatin 40 mg tablet 40 mg PO DAILY 01/15/23 [History Confirmed 02/10/23] ciprofloxacin HCl 500 mg tablet 500 mg PO BID #20 tabs 01/19/23 [Rx Confirmed 02/10/23] metronidazole 500 mg tablet 500 mg PO TID #24 tabs 01/20/23 [Rx Confirmed 02/10/23] Subjective Details: Patient reports he is not having any discomfort or nausea or vomiting. He is having some loose stools and is it. Objective Details: Incisions are healing well, abdomen is soft and nontender Coding Level of Care Code Global Post Op Diagnoses Acute cholecystitis K81.0 [facility] Medical History (Updated 02/10/23 @ 12:55 by Katheryn Simpson) Acute cholecystitis BPH (benign prostatic hyperplasia) Fluid collection at surgical site GERD (gastroesophageal reflux disease) Hepatomegaly High cholesterol History of bladder cancer History of stress test Hx of gastroesophageal reflux (GERD) Hypertension Loss of hearing Obesity Respiratory failure Smoker Wears dentures Surgical History H/O chest tube placement H/O hand surgery History of bladder surgery History of laparoscopic cholecystectomy History of surgery of head History of tonsillectomy and adenoidectomy Family History Brother Heart disease Hypertension CAD (coronary artery disease) Myocardial infarction Father Heart disease Hypertension CAD (coronary artery disease) Myocardial infarction Mother Alzheimer disease Social History household members: none housing: house number of children: 1 current occupational status: retired Smoking Status: Former smoker how long ago did patient quit smoking: Quit 2015; started 16 w/ 1 pk/2.5 day until 10 cigar/d x 3 yrs. alcohol intake: never substance use type: does not use Assessment and Plan (No Qualifiers) Assessment and Plan (1) Acute cholecystitis: Status: Acute Plan: Patient is doing well since his drain was removed. He denies any abdominal pain or nausea or vomiting or fevers or chills. Follow-up as needed. Activity as tolerated. Luis Antonio Daly MD Pager: [facility] [address] [place] [phone] Office: 02/10/23 1405 Date Luis Antonio Daly MD [facility] Signature: Date (if applicable) CC: Normal [facility] Surgery Visit Reporton 01-27 Surgery Visit Report [address] [address] OFFICE VISIT Date of Service: 01/27/23 MR#: [id number] Acct: [id number] Name: DIANA THURSTON ISHAAN Rep #: [id number] : 1945 Provider: Dr. Luis Antonio puente MD Age/Sex: 77/M Location: [facility] Status: Signed Intake Vital Signs 01/15/23 09:42 Height 5 ft 7 in Intake Visit Reasons: DRAIN REMOVAL Chief Complaint: drain removal Financial Report Service Sales Agent Required: No Is patient in pain?: No Allergies No Known Allergies Allergy (Verified 01/27/23 14:11) Medications hydrochlorothiazide 12.5 mg tablet 12.5 tab PO DAILY 04/09/22 [History Confirmed 01/27/23] losartan 50 mg tablet 50 mg PO DAILY 04/09/22 [History Confirmed 01/27/23] omeprazole 40 mg capsule,delayed release 40 mg PO DAILY 04/09/22 [History Confirmed 01/27/23] pravastatin 40 mg tablet 40 mg PO DAILY 01/15/23 [History Confirmed 01/27/23] ciprofloxacin HCl 500 mg tablet 500 mg PO BID #20 tabs 01/19/23 [Rx Confirmed 01/27/23] metronidazole 500 mg tablet 500 mg PO TID #24 tabs 01/20/23 [Rx Confirmed 01/27/23] Subjective Details: Patient is doing well with no discomfort and has had no drainage for the last 2 days Objective Details: Abdomen soft and nontender with drain in place with no drainage Coding Level of Care Code Global Post Op Diagnoses Fluid collection at surgical site T88.8XXA [facility] Medical History BPH (benign prostatic hyperplasia) Fluid collection at surgical site GERD (gastroesophageal reflux disease) Hepatomegaly High cholesterol History of bladder cancer History of stress test Hx of gastroesophageal reflux (GERD) Hypertension Loss of hearing Obesity Smoker Wears dentures Surgical History H/O chest tube placement H/O hand surgery History of bladder surgery History of laparoscopic cholecystectomy History of surgery of head History of tonsillectomy and adenoidectomy Family History Brother Heart disease Hypertension CAD (coronary artery disease) Myocardial infarction Father Heart disease Hypertension CAD (coronary artery disease) Myocardial infarction Mother Alzheimer disease Social History household members: none housing: house number of children: 1 current occupational status: retired Smoking Status: Former smoker how long ago did patient quit smoking: Quit 2016; started 16 w/ 1 pk/2.5 day until 10 cigar/d x 3 yrs. alcohol intake: never substance use type: does not use Assessment and Plan (No Qualifiers) Assessment and Plan (1) Fluid collection at surgical site: Status: Acute Plan: Patient had drainage of deep postsurgical infection. He is still on his antibiotics I remove the drain today. Follow-up in 2 weeks. Luis Antonio Daly MD Pager: [facility] [address] [place] [address], [address] [place] [address] Office: 01/27/23 1527 Date Luis Antonio Daly MD [facility] Signature: Date (if applicable) CC: Normal [facility] Bacteria identified Anaer cx Nom (Unsp spec)Ordered By: Dr. Daly on 01-20-2023 Anaerobic Culture Clostridium perfringens [facility] Culture, Anaerobic Any [facility] zayra 01-20-2023 CUAN gallbladder fossa fl uid Clostridium perfringens is generally SUSCEPTIBLE to Penicillin, Metronidazole, and Meropenem. It is showing increasing RESISTANCE to Clindamycin and Tetracycline. Bacteria Spec Anaerobe Cult Clostridium species other than perfringens are generally SUSCEPTIBLE to Piperacillin, Beta-lactams and Beta-lactamase inhibitors, Carbapenems, Metronidazole and Vancomycin. They are generally RESISTANT to Ampicillin, Aminoglycosides, Trimethoprim-sulfamethoxa zole, and Clindamycin. Clostridium perfringens * This is an amended result. * A prior result that was reported as final has been changed. 01/20/23 0756 by ARETHA Potts [facility] Comment on above: Performed By: #### M 100.3000, M100.4001, M100.1999 #### [facility] [address] [place], [address] Surgery Visit Reporton 01-20 Surgery Visit Report [facility] [address] [place] [address] OFFICE VISIT Date of Service: 01/20/23 MR#: [id number] Acct: [id number] Name: DIANA THURSTON Rep #: [id number] : 1945 Provider: Dr. Luis Antonio puente MD Age/Sex: 77/M Location: [facility] Status: Signed Intake Vital Signs 01/15/23 09:42 Height 5 ft 7 in Intake Visit Reasons: drain removal Chief Complaint: drain removal Financial Report Service Sales Agent Required: No Is patient in pain?: No Allergies No Known Allergies Allergy (Verified 01/20/23 13:49) Medications hydrochlorothiazide 12.5 mg tablet 12.5 tab PO DAILY 04/09/22 [History Confirmed 01/20/23] losartan 50 mg tablet 50 mg PO DAILY 04/09/22 [History Confirmed 01/20/23] omeprazole 40 mg capsule,delayed release 40 mg PO DAILY 04/09/22 [History Confirmed 01/20/23] pravastatin 40 mg tablet 40 mg PO DAILY 01/15/23 [History Confirmed 01/20/23] ciprofloxacin HCl 500 mg tablet 500 mg PO BID #20 tabs 01/19/23 [Rx Confirmed 01/20/23] metronidazole 500 mg tablet 500 mg PO TID #24 tabs 01/20/23 [Rx Confirmed 01/20/23] Subjective Details: The patient reports he is doing well. He denies fevers or chills. Objective Details: IRENE with purulent drainage Coding Level of Care Code Global Post Op Diagnoses Fluid collection at surgical site T88.8XXA [facility] Medical History BPH (benign prostatic hyperplasia) Fluid collection at surgical site GERD (gastroesophageal reflux disease) Hepatomegaly High cholesterol History of bladder cancer History of stress test Hx of gastroesophageal reflux (GERD) Hypertension Loss of hearing Obesity Smoker Wears dentures Surgical History H/O chest tube placement H/O hand surgery History of bladder surgery History of laparoscopic cholecystectomy History of surgery of head History of tonsillectomy and adenoidectomy Family History Brother Heart disease Hypertension CAD (coronary artery disease) Myocardial infarction Father Heart disease Hypertension CAD (coronary artery disease) Myocardial infarction Mother Alzheimer disease Social History (Updated 01/15/23 @ 09:38 by Sheryl Zelaya) household members: none housing: house number of children: 1 current occupational status: retired Smoking Status: Former smoker how long ago did patient quit smoking: Quit 2015; started 16 w/ 1 pk/2.5 day until 10 cigar/d x 3 yrs. alcohol intake: never substance use type: does not use Assessment and Plan (No Qualifiers) Assessment and Plan (1) Fluid collection at surgical site: Status: Acute Plan: The patient was having green looking output last week. I had a HIDA scan done yesterday which showed no leak. His drainage has turned purulent. Cultures show bacteria. Patient has a postoperative abscess in the deep space. I will have the patient continue drainage and he started Cipro today I will add Flagyl. I will have him follow-up in 2 days and if there is decreased drainage I will remove the drain. Luis Antonio Daly MD Pager: [facility] [address] [place] [address], [address] [place] [address] Office: Medications: New metronidazole 500 mg PO TID 24 tabs 0RF 01/20/23 1409 Date Luis Antonio Daly MD [facility] Signature: Date (if applicable) CC: Dr. Brad Moody MD Normal [facility] Hepatobilliary Imagingon Hepatobilliary Imaging [facility] [address] [place] [address] Hepatobilliary Imaging MR#: [id number] Acct: [id number] Name: DIANA THURSTON Rep #: [id number] : 1945 M 77 From: Maikel Caceres PCP: Dr. Brad Moody MD Status: REG CLI Study: Hepatobilliary Imaging Date of Exam: 01/19/23 Exam# [id number] Ordering Dr: Luis Antonio Daly CLINICAL: 77-year-old male with history of recent cholecystectomy with postoperative pain and suspected bile leak. RADIONUCLIDE HEPATOBILIARY SCINTIGRAPHY COMPARISON: CT of the abdomen-pelvis report 01/08/2023 FINDINGS: Following the intravenous administration of 5.1 mCi of 99m Tc Mebrofenin, hepatobiliary images reveal: 1. Relatively prompt and homogeneous radiopharmaceutical concentration is noted by a normal sized liver. No parenchymal defects are identified. 2. Gallbladder activity is not identified during 60 minutes of sequential imaging commensurate with known history of prior cholecystectomy. 3. Small intestinal tract is observed at 19-20 minutes post radiopharmaceutical administration. 4. Washout of the radiopharmaceutical by the hepatic parenchyma appears qualitatively normal. 5. There is no evidence of a visualized bile leak identified during 60 minutes of sequential imaging. 6.Duodenal gastric reflux is demonstrated at 51 minutes post tracer injection. NM/Hepatobilliary Imaging IMPRESSION: 1. Nonvisualization of the gallbladder is consistent with prior cholecystectomy. 2. There is no scintigraphic evidence of bile leak. 3. Mild duodenal gastric reflux is identified as described above. Electronically Signed: Maikel oTrres, at 11:32 EDT , CC: Dr. Luis Antonio Daly MD; Dr. Brad Moody MD Optical Glass Sawyer: Signed Normal [facility] Bacteria identified Cx Nom ( Wound)Ordered By: Dr. Daly on 01-18-2023 Wound Culture Klebsiella pneumonia e sp pneum [facility] Wound Culture Enterococcus faecium [facility] Wound Cultureon 01-18-2023 WC gallbladder fossa fl uid Klebsiella pneumoniae sp pneum Amount Growth 1+ Enterococcus faecium Amount Growth Rare Klebsiella pneumoniae sp pneum: REACTION Ampicillin Islt EBONY R Ampicillin+Sulbac Islt EBONY 8 S ceFAZolin Islt EBONY <=4 S Cefepime Islt EBONY <=0.12 S cefTRIAXone Islt EBONY <=0.25 S Ciprofloxacin Islt EBONY <=0.25 S Ertapenem Islt EBONY <=0.12 S B-Lactamase Extended Susc Islt NEG Gentamicin Islt EBONY <=1 S Imipenem Islt EBONY <=0.25 S levoFLOXacin Islt EBONY 1 S Pip+Tazo Islt EBONY 16 S Tobramycin Islt EBONY <=1 S TMP SMX Islt EBONY <=20 S Enterococcus faecium: REACTION Ampicillin Islt EBONY <=2 S Gentamicin Synergy Susc Islt SYN-S S Linezolid Islt EBONY 2 S Streptomycin High Pot Susc Islt SYN-S S Vancomycin Islt EBONY <=0.5 S Normal [facility] Comment on above: Performed By: #### M 100.3000, M100.4001, M1.1999 #### [facility] [address] [place], [place], [id number] Gram Stainon 01-16-2023 GS gallbladder fossa fl uid Gram Stain 4+ White Blood Cells No Epithelial cells No organisms seen Normal [facility] Comment on above: Performed By: #### M 100.3000, M100.4001, M100.1999 #### [facility] [address] [place], [place], [address] Gram stain for investigation of transfusion reactionOrdered By: Dr. Daly on 01-16-2023 Microscopic observation Gram stain Nom (Unsp spec) [facility] Surgery Visit Reporton 01-16 Surgery Visit Report [facility] [address] [place] [address] OFFICE VISIT Date of Service: 01/16/23 MR#: [id number] Acct: [id number] Name: DIANA THURSTON Rep #: [id number] : 1945 Provider: Dr. Luis Antonio puente MD Age/Sex: 77/M Location: [facility] Status: Signed Intake Vital Signs 01/15/23 09:42 Height 5 ft 7 in Intake Visit Reasons: ABCESS DRAINAGE Chief Complaint: acute cholecystitis; bronchospasm Allergies No Known Allergies Allergy (Verified 12/25/22 11:22) Subjective Details: Patient feels better after having his drain placed Objective Details: Incisions are healing well. Drain with serous output Coding Level of Care Code Global Post Op Diagnoses Fluid collection at surgical site T88.8XXA [facility] Medical History BPH (benign prostatic hyperplasia) Fluid collection at surgical site GERD (gastroesophageal reflux disease) Hepatomegaly High cholesterol History of bladder cancer History of stress test Hx of gastroesophageal reflux (GERD) Hypertension Loss of hearing Obesity Smoker Wears dentures Surgical History H/O chest tube placement H/O hand surgery History of bladder surgery History of laparoscopic cholecystectomy History of surgery of head History of tonsillectomy and adenoidectomy Family History Brother Heart disease Hypertension CAD (coronary artery disease) Myocardial infarction Father Heart disease Hypertension CAD (coronary artery disease) Myocardial infarction Mother Alzheimer disease Social History (Updated 01/15/23 @ 09:38 by Sheryl Zelaya) household members: none housing: house number of children: 1 current occupational status: retired Smoking Status: Former smoker how long ago did patient quit smoking: Quit 2015; started 16 w/ 1 pk/2.5 day until 10 cigar/d x 3 yrs. alcohol intake: never substance use type: does not use Assessment and Plan (No Qualifiers) Assessment and Plan (1) Fluid collection at surgical site: Status: Acute Plan: Patient had percutaneous drain placed yesterday into the gallbladder fossa. The cultures are still pending. It is hard to tell if this is seroma versus bile. I will order a HIDA to elucidate if he has a bile leak. If there is a bile leak identified I recommended ERCP and I discussed this with him in detail. Luis Antonio Daly MD Pager: [facility] [address] [place] [address], [address] [place] [address] Office: 01/16/23 1451 Date Luis Antonio Daly MD [employer] Signature: Date (if applicable) CC: Dr. Brad Moody MD Normal [facility] CT Guidance Abscess Drg w/Ca thon 01-15-2023 CT Guidance Abscess Drg w/Cath [facility] [address] [place] [address] CT Guidance Abscess Drg w/Cath MR#: [id number] Acct: [id number] Name: DIANA THURSTON Rep #: [id number] : 1945 M 77 From: Ludwin mayer MD PCP: Dr. Brad Moody MD Status: REG CLI Study: CT Guidance Abscess Drg w/Cath Date of Exam: 0 01/15/23 Exam# [id number] Ordering Dr: Luis Antonio Daly PROCEDURE: CT DIRECTED ABSCESS DRAINAGE, PERITONEAL DATE OF EXAMINATION: January 15, 2023. INDICATION: Male, 77 years old. Fluid collection in the right upper quadrant following cholecystectomy. PHYSICIAN: Ludwin Barragan M.D. CONSENT: Written informed consent was obtained having explained the risks, benefits and alternatives in detail with the patient who accepted the risks and agreed to proceed. Laboratory review and clinical assessment was performed. CONSCIOUS SEDATION PROTOCOL: The Drugs used were: 2 mg Versed, IV., and 50 mcg Fentanyl, IV. The sedation time was: 26 minutes. Conscious sedation was started at 10:12 AM and terminated at 1038 The conscious sedation protocol was independently monitored. RADIATION DOSAGE (If Supplied By Facility): CTDIvol = ( 22 ) mGy, DLP = ( 899.03 ) mGycm. Individualized dose optimization techniques were utilized. TECHNIQUE: CT sections were made through the abdomen and pelvis revealing an abscess in the region of the gallbladder fossa. The skin surface was prepped and draped in a sterile fashion. Puncture of this collection was performed initially with a 5 Icelandic catheter and fluid was aspirated. 8 Icelandic drainage catheter was then inserted into the collection and formed into position. Additional fluid was aspirated for a total of approximately 20 and 80 cc of cloudy purulent fluid. The catheter was sutured into position to allow for continued drainage. Followup CT sections reveals good position of the catheter. CT/CT Guidance Abscess Drg w/Cath IMPRESSION: 1. CT directed drainage of a fluid collection using CT image guidance and image documentation as described. 2. Conscious Sedation protocol utilized with independent monitoring Electronically Signed: Ludwin Barragan MD at 11:06 EDT , CC: Dr. Luis Antonio Daly MD; Dr. Brad Moody MD Optical Glass Sawyer: Signed Normal [facility] Absolute lymphocyte countOrd ered By: Dr. Daly on 01-14-2023 Lymphocytes Auto (Unsp spec) [#/Vol] 1.46 10*3/uL 0.83-4.51 [facility] Basophil percentageOrdered B y: Dr. Daly on 01-14-2023 Basophils/100 WBC (Bld) 0.9 % 0-1 [facility] Eosinophils/100 WBC (Bld) 1.1 % 0-5 [facility] Neutrophils (Bld) [#/Vol] 4.6 10*3/uL 2.0-7.7 [facility] Neutrophils/100 WBC (Bld) 65.6 % 47-70 [facility] WBC (Bld) [#/Vol] 7.0 10*3/uL 4.4-11.0 [facility] Blood erythrocytes count (nu mber/volume)Ordered By: Dr. Daly on 01-14-2023 RBC (Bld) [#/Vol] 4.33 10*6/uL 4.6-6.2 [facility] Blood hemoglobin measurement (mass/volume)Ordered By: Dr. Daly on 01-14-2023 Hemoglobin (Bld) [Mass/Vol] 12.3 g/dL 13.0-16.5 [facility] Blood lymphocytes/100 leukoc ytesOrdered By: Dr. Daly on 01-14-2023 Lymphocytes/100 WBC (Bld) 20.8 % 19-41 [facility] Blood monocytes/100 leukocyt esOrdered By: Dr. Daly on 01-14-2023 Monocytes/100 WBC (Bld) 11.2 % 0-10 [facility] Blood platelet mean volumeOr dered By: Dr. Daly on 01-14-2023 Platelet mean volume (Bld) [Entitic vol] 8.9 fL 6.2-12.0 [facility] CBC W/Diff, Automatedon 12-27 Absolute Lymph 1.46 X10 3/uL Normal 0.83-4.51 [facility] Comment on above: Performed By: #### M 100.3000, M1.400, #### [facility] [address] [place], [address] Absolute Neut 4.6 X10 3/uL Normal 2.0-7.7 [facility] Comment on above: Performed By: #### M 100.3000, M100.4001, #### [facility] [address] [place], [address] Basophils/100 WBC (Bld) 0.9 % Normal 0-1 [facility] Comment on above: Performed By: #### M 100.3000, M100.4001, #### [facility] [address] [place], [address] Eosinophils/100 WBC (Bld) 1.1 % Normal 0-5 [facility] Comment on above: Performed By: #### M 100.3000, M100.4001, #### [facility] [address] [place], [address] Erythrocyte distribution width (RBC) [Ratio] 13.7 % Normal 11.6-14.6 [facility] Comment on above: Performed By: #### M 100.3000, M100.4001, #### [facility] [address] [place], [address] Hematocrit (Bld) [Volume fraction] 37.8 % Low 40-54 [facility] Comment on above: Performed By: #### M 100.3000, M100.4001, #### [facility] [address] [place], [address] Hemoglobin (Bld) [Mass/Vol] 12.3 g/dL Low 13.0-16.5 [facility] Comment on above: Performed By: #### M 100.3000, M100.4001, #### [facility] [address] [place], [address] IG% 0.400 Normal 0.0-0.9 [facility] Comment on above: Result Comment: IG% - Immature Granulocytes (promyelocytes, myelocytes and metamyelocytes) > 1% indicates that a LEFT SHIFT is Present. Performed By: #### M 100.3000, M100.4001, #### [facility] [address] [place], [address] Lymphocytes/100 WBC (Bld) 20.8 % Normal 19-41 [facility] Comment on above: Performed By: #### M 100.3000, M100.4001, #### [facility] [address] [place], [address] MCH (RBC) [Entitic mass] 28.4 pg Normal 27.0-32.0 [facility] Comment on above: Performed By: #### M 100.3000, M100.4001, #### [facility] [address] [place], [address] MCHC (RBC) [Mass/Vol] 32.5 g/dL Normal 32-36 [facility] Comment on above: Performed By: #### M 100.3000, M100.4001, #### [facility] [address] [place], [address] MCV (RBC) [Entitic vol] 87.3 fL Normal 80-94 [facility] Comment on above: Performed By: #### M 100.3000, M100.4001, #### [facility] [address] [place], [address] Monocytes/100 WBC (Bld) 11.2 % High 0-10 [facility] Comment on above: Performed By: #### M 100.3000, M100.4001, #### [facility] [address] [place], [address] Neutrophils/100 WBC (Bld) 65.6 % Normal 47-70 [facility] Comment on above: Performed By: #### M 100.3000, M100.4001, #### [facility] [address] [place], [address] Nucleated RBC (Bld) [#/Vol] 0 10*3/uL Normal 0-5 [facility] Comment on above: Performed By: #### M 100.3000, M100.4001, M12000 #### [facility] [address] [place], [address] Platelet mean volume (Bld) [Entitic vol] 8.9 fL Normal 6.2-12.0 [facility] Comment on above: Performed By: #### M 100.3000, M100.4001, #### [facility] [address] [place], [address] Platelets (Bld) [#/Vol] 362 10*3/uL Normal 150-450 [facility] Comment on above: Performed By: #### M 100.3000, M100.4001, #### [facility] [address] [place], [address] RBC (Bld) [#/Vol] 4.33 10*6/uL Low 4.6-6.2 [facility] Comment on above: Performed By: #### M 100.3000, M100.4001, #### [facility] [address] [place], [address] RDW SD 44.3 fl High 35.1-43.9 [facility] Comment on above: Performed By: #### M 100.3000, M100.4001, #### [facility] [address] [place], [address] WBC (Bld) [#/Vol] 7.0 10*3/uL Normal 4.4-11.0 [facility] Comment on above: Performed By: #### M 100.3000, M100.4001, #### [facility] [address] [place], [address] Determination of erythrocyte mean corpuscular volume (MCV)Ordered By: Dr. Daly on 01-14-2023 MCV (RBC) [Entitic vol] 87.3 fL 80-94 [facility] Hematocrit Auto (Bld) [Volum e fraction]Ordered By: Dr. Daly on 01-14-2023 Hematocrit (Bld) [Volume fraction] 37.8 % 40-54 [facility] INR in Blood by Coagulation assayOrdered By: Dr. Daly on 01-14-2023 INR Coag (Bld) [Relative time] 1.2 {INR} [facility] - CoagulationOrde red By: Dr. Daly on 01-14-2023 aPTT Coag (Bld) [Time] 36.7 s 24.1-36.2 [facility] PT Coag (PPP) [Time] 14.5 s 11.7-14.9 [facility] - Hematology and Cell countsOrdered By: Dr. Daly on 01-14-2023 Erythrocyte distribution width (RBC) [Entitic vol] 44.3 fL 35.1-43.9 [facility] Erythrocyte distribution width (RBC) [Ratio] 13.7 % 11.6-14.6 [facility] Immature granulocytes/100 WBC (Bld) 0.400 % 0.0-0.9 [facility] Comment on above: IG% - Immature Granu locytes (promyelocytes, myelocytes and metamyelocytes) > 1% indicates that a LEFT SHIFT is Present. MCH (RBC) [Entitic mass] 28.4 pg 27.0-32.0 [facility] Nucleated RBC/100 WBC (Bld) [Ratio] 0 % 0-5 [facility] MCHC Auto (RBC) [Mass/Vol]Or dered By: Dr. Daly on 01-14-2023 MCHC (RBC) [Mass/Vol] 32.5 g/dL 32-36 [facility] Partial Thromboplast Timeon 01-14-2023 aPTT Coag (Bld) [Time] 36.7 s High 24.1-36.2 [facility] Comment on above: Performed By: #### M 100.3000, M100.4001, M100.1999 #### [facility] [address] [place], [address] Platelets bldOrdered By: Dr. Daly on 01-14-2023 Platelets (Bld) [#/Vol] 362 10*3/uL 150-450 [facility] Prothrombin Time w/INRon INR Coag (PPP) [Relative time] 1.2 {INR} Normal [facility] Comment on above: Performed By: #### M 100.3000, M100.4001, M1.1999 #### [facility] [address] [place], [address] PT Coag (PPP) [Time] 14.5 s Normal 11.7-14.9 [facility] Comment on above: Performed By: #### M 100.3000, M100.4001, M1 #### [facility] [address] [place], [address] Abdomen Limitedon 01-13-2023 Abdomen Limited [facility] [address] [place] [address] Abdomen Limited MR#: [id number] Acct: [id number] Name: DIANA THURSTON Rep #: [id number] : 1945 M 77 From: Ludwin mayer MD PCP: Dr. Brad Moody MD Status: REG CLI Study: Abdomen Limited Date of Exam: 01/13/23 Exam# [id number] Ordering Dr: Brad Moody MD STUDY: ABDOMINAL ULTRASOUND - RIGHT UPPER QUADRANT REASON FOR VISIT: Male, 77 years old ABD PAIN S/P RAFA IN NOVEMBER -- CT TO FOLLOW TECHNIQUE: Ultrasound evaluation of the right upper quadrant was performed with real-time and static davis-scale imaging. TECHNICAL QUALITY: Adequate. COMPARISON: None. FINDINGS: Liver: The liver measures 17.1 cm. There is increased echogenicity consistent with fatty infiltration. The bile ducts are within normal limits. There is hepatic color flow. The direction of portal flow is hepatopetal. There is no demonstrated mass lesion. Gallbladder: The patient is status post cholecystectomy. There is a 7.7 cm x 6.6 x 6.5 cm complex fluid collection in the gallbladder fossa. This most likely represents a postoperative seroma. Common Bile Duct (C.B.D.): The common bile duct measures 5 mm. Pancreas: There is nonvisualization of the pancreas due to overlying bowel gas. Right Kidney: Normal size of the right kidney. The right kidney measures 12.1 cm x 6.2 cm x 6 cm. Normal renal cortex. The right cortex measures 2.0 cm. There is no demonstrated renal mass or cyst. There is no right hydronephrosis. US/Abdomen Limited IMPRESSION: Status post cholecystectomy. 7.7 cm x 6.6 cm x 6.5 cm complex fluid collection in the bladder fossa. This most likely represents a postoperative seroma. Electronically Signed: Ludwin Barragan MD at 14:04 EDT Reading Location ID and State: [facility] / [place] , Service support , CC: Dr. Brad Moody MD [employer]yer: Signed Normal [facility] Abdomen/Pelvis WITH Contrast on 01-13-2023 Abdomen/Pelvis WITH Contrast [facility] [address] [place] [address] Abdomen/Pelvis WITH Contrast MR#: [id number] Acct: [id number] Name: DIANA THURSTON Rep #: [id number] : 1945 77 From: Ludwin mayer MD PCP: Dr. Brad Moody MD Status: REG CLI Study: Abdomen/Pelvis WITH Contrast Date of Exam: Exam# [id number] Ordering Dr: Brad Moody MD STUDY: CT ABDOMEN AND PELVIS WITH CONTRAST REASON FOR EXAM: Male, 77 years old. RUQ PAIN. The patient is status post cholecystectomy. RADIATION DOSAGE (If Supplied By Facility): CTDIvol = ( 17.35 ) mGy, DLP = ( 1255.00 ) mGycm TECHNIQUE: Transaxial images were obtained from the dome of the diaphragm to the symphysis pubis without oral contrast. Oral and amp; IV Gastrografin and amp; 100mL Isovue-300 was administered. Sagittal and coronal images were reconstructed. Individualized dose optimization techniques were used for this CT. COMPARISON: None. FINDINGS: Mild degree of increased markings at the lung bases likely more prominent on the right side suggestive of a right basilar atelectasis. Coronary artery calcification. There is decreased attenuation of the liver consistent with steatosis. The patient is status post cholecystectomy. In the gallbladder fossa, there is a 8.6 cm x 7 cm x 6 cm fluid collection with a thin rim. Increased markings are seen in the surrounding peritoneal fat. Tiny air bubbles are seen in the surrounding peritoneal fat in the gallbladder fossa most likely secondary to recent cholecystectomy. Normal spleen. Normal pancreas. 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 Normal right kidney. Normal left kidney. There is a small hiatal hernia. Normal small intestine. Fecal material is seen in the rectum. Asymmetrical thickening of the right lateral wall of the rectum. The appendix is visualized and appears normal. There is scattered atherosclerotic calcification of the abdominal aorta, without a demonstrated aneurysm. Mild degree of mural thrombus is seen within the abdominal aorta. Normal inferior vena cava. Normal retroperitoneum. Normal urinary bladder. There is evidence of a right sided spigelian hernia containing fat. There are diffuse degenerative changes of the visualized lumbar spine. CT/Abdomen/Pelvis WITH Contrast IMPRESSION: 8.6 cm x 7 cm x 6 mL fluid collection in the region of the gallbladder fossa. This most likely represents a postoperative seroma. The patient is status post cholecystectomy. The remainder of the examination is unchanged. Electronically Signed: Ludwin Barragan MD at 10:31 EDT , CC: Dr. Brad Moody MD [employer]yer: Signed Normal [facility] Absolute lymphocyte countOrd ered By: Dr. Moody on 01-12-2023 Lymphocytes Auto (Unsp spec) [#/Vol] 1.90 10*3/uL 0.83-4.51 [facility] Amylaseon 01-12-2023 JOAN 39 U/L Normal 25-115 [facility] Comment on above: Performed By: #### M 100.3000, M1, #### [facility] [address] [place], [address] Automated blood hematocrit ( percentage)Ordered By: Dr. Moody on 01-12-2023 Hematocrit (Bld) [Volume fraction] 41.6 % Normal 40-54 [facility] Comment on above: Performed By: #### M 100.3000, , #### [facility] [address] [place], [address] Basophil percentageOrdered B y: Dr. Moody on 01-12-2023 Bilirubin [Mass/Vol] 1.20 mg/dL High 0.20-1.00 [facility] Comment on above: For patients on eltr ombopag therapy, use of Dimension Colome TBIL is not recommended. Result Comment: For patients on eltrombopag therapy, use of Dimension Colome TBIL is not recommended. Performed By: #### M 100.3000, M1.4000, #### [facility] [address] [place], [address] Chloride [Moles/Vol] 98 mmol/L Normal 98-107 [facility] Comment on above: Performed By: #### M 100.3000, M100.400, #### [facility] [address] [place], [address] Glucose [Mass/Vol] 96 mg/dL Normal 74-106 [facility] Comment on above: Performed By: #### M 100.3000, M100.4001, #### [facility] [address] [place], [address] Potassium [Moles/Vol] 3.4 mmol/L Low 3.5-5.1 [facility] Comment on above: Performed By: #### M 100.3000, M100.4001, #### [facility] [address] [place], [address] Sodium [Moles/Vol] 131 mmol/L Low 136-145 [facility] Comment on above: Performed By: #### M 100.3000, M100.400, #### [facility] [address] [place], [address] Basophils/100 WBC (Bld) 0.4 % Normal 0-1 [facility] Comment on above: Performed By: #### M 100.3000, M100.400, #### [facility] [address] [place], [address] Eosinophils/100 WBC (Bld) 0.6 % Normal 0-5 [facility] Comment on above: Performed By: #### M 100.3000, M100.4001, #### [facility] [address] [place], [address] Neutrophils/100 WBC (Bld) 72.4 % High 47-70 [facility] Comment on above: Performed By: #### M 100.3000, M100.4001, #### [facility] [address] [place], [address] WBC (Bld) [#/Vol] 11.3 10*3/uL High 4.4-11.0 [facility] Comment on above: Performed By: #### M 100.3000, M100.4001, #### [facility] [address] [place], [address] Amylase [Catalytic activity/Vol] 39 U/L 25-115 [facility] Neutrophils (Bld) [#/Vol] 8.2 10*3/uL 2.0-7.7 [facility] Protein [Mass/Vol] 7.1 g/dL 6.4-8.2 [facility] Blood erythrocytes count (nu mber/volume)Ordered By: Dr. Moody on 01-12-2023 RBC (Bld) [#/Vol] 4.69 10*6/uL Normal 4.6-6.2 [facility] Comment on above: Performed By: #### M 100.3000, M100.4001, #### [facility] [address] [place], [address] Blood hemoglobin measurement (mass/volume)Ordered By: Dr. Moody on 01-12-2023 Hemoglobin (Bld) [Mass/Vol] 13.4 g/dL Normal 13.0-16.5 [facility] Comment on above: Performed By: #### M 100.3000, M100.4001, M1 #### [facility] [address] [place], [address] Blood lymphocytes/100 leukoc ytesOrdered By: Dr. Moody on 01-12-2023 Lymphocytes/100 WBC (Bld) 16.9 % Low 19-41 [facility] Comment on above: Performed By: #### M 100.3000, M100.4001, M1 #### [facility] [address] [place], [address] Blood monocytes/100 leukocyt esOrdered By: Dr. Moody on 01-12-2023 Monocytes/100 WBC (Bld) 9.3 % Normal 0-10 [facility] Comment on above: Performed By: #### M 100.3000, M100.4001, M1.1999 #### [facility] [address] [place], [address] Blood platelet mean volumeOr dered By: Dr. Moody on 01-12-2023 Platelet mean volume (Bld) [Entitic vol] 9.0 fL Normal 6.2-12.0 [facility] Comment on above: Performed By: #### M 100.3000, M100.4001, #### [facility] [address] [place], [address] CBC W/Diff, Automatedon 12-27 Absolute Lymph 1.90 X10 3/uL Normal 0.83-4.51 [facility] Comment on above: Performed By: #### M 100.3000, M100.400, #### [facility] [address] [place], [address] Absolute Neut 8.2 X10 3/uL High 2.0-7.7 [facility] Comment on above: Performed By: #### M 100.3000, M100.4001, #### [facility] [address] [place], [address] IG% 0.400 Normal 0.0-0.9 [facility] Comment on above: Result Comment: IG% - Immature Granulocytes (promyelocytes, myelocytes and metamyelocytes) > 1% indicates that a LEFT SHIFT is Present. Performed By: #### M 100.3000, M100.4001, #### [facility] [address] [place], [address] Nucleated RBC (Bld) [#/Vol] 0 10*3/uL Normal 0-5 [facility] Comment on above: Performed By: #### M 100.3000, M100.4001, #### [facility] [address] [place], [address] RDW SD 44.8 fl High 35.1-43.9 [facility] Comment on above: Performed By: #### M 100.3000, M100.4001, #### [facility] [address] [place], [address] CBC W/Diff, AutomatedOrdered By: Dr. Moody on 01-12-2023 Erythrocyte distribution width (RBC) [Ratio] 13.8 % Normal 11.6-14.6 [facility] Comment on above: Performed By: #### M 100.3000, M100.4001, #### [facility] [address] [place], [address] MCH (RBC) [Entitic mass] 28.6 pg Normal 27.0-32.0 [facility] Comment on above: Performed By: #### M 100.3000, M100.4001, #### [facility] [address] [place], [address] Comprehensive Metabolic Prof ilon 01-12-2023 ALK P 98 U/L Normal 45-117 [facility] Comment on above: Performed By: #### M 100.3000, M100.4001, #### [facility] [address] [place], [address] AST [Catalytic activity/Vol] 23 U/L Normal 15-37 [facility] Comment on above: Performed By: #### M 100.3000, M100.4001, #### [facility] [address] [place], [address] BUN/CRE 10.2 RATIO Normal 10-20 [facility] Comment on above: Performed By: #### M 100.3000, M100.4001, #### [facility] [address] [place], [address] CA,Total 8.7 mg/dL Normal 8.5-10.1 [facility] Comment on above: Performed By: #### M 100.3000, M100.4001, #### [facility] [address] [place], [address] EST GFR - AA 71 mL/min Normal >60 [facility] Comment on above: Result Comment: Afri can [place] GFR Calc Performed By: #### M 100.3000, M100.4001, #### [facility] [address] [place], [address] GAP 6 Normal 5-15 [facility] Comment on above: Performed By: #### M 100.3000, M100.4001, #### [facility] [address] [place], [address] GFR/1.73 sq M.predicted among non-blacks MDRD (S/P/Bld) [Vol rate/Area] 59 mL/min/{1.73_m2} Low >60 [facility] Comment on above: Result Comment: Non- GFR Calc Performed By: #### M 100.3000, M100.4001, #### [facility] [address] [place], [address] T PROT 7.1 g/dL Normal 6.4-8.2 [facility] Comment on above: Performed By: #### M 100.3000, M100.4001, #### [facility] [address] [place], [address] Comprehensive Metabolic Prof ilOrdered By: Dr. Moody on 01-12-2023 ALT [Catalytic activity/Vol] 23 U/L Normal 16-61 [facility] Comment on above: Performed By: #### M 100.3000, M100.4001, #### [facility] [address] [place], [address] CO2 [Moles/Vol] 27.0 mmol/L Normal 21.0-32.0 [facility] Comment on above: Performed By: #### M 100.3000, M100.4001, M100.1999 #### [facility] [address] [place], [address] Globulin (S) [Mass/Vol] 4.3 g/dL High 2.2-4.2 [facility] Comment on above: Performed By: #### M 100.3000, M100.4001, M100.1999 #### [facility] [address] [place], [address] Determination of erythrocyte mean corpuscular volume (MCV)Ordered By: Dr. Moody on 01-12-2023 MCV (RBC) [Entitic vol] 88.7 fL Normal 80-94 [facility] Comment on above: Performed By: #### M 100.3000, M100.4001, M100.1999 #### [facility] [address] [facility] [place], [address] Laboratory - Chemistry and C hemistry - challengeOrdered By: Dr. Moody on 01-12-2023 ALP [Catalytic activity/Vol] 98 U/L 45-117 [facility] Urea nitrogen/Creatinine [Mass ratio] 10.2 mg/mg 10-20 [facility] - Hematology and Cell countsOrdered By: Dr. Moody on 01-12-2023 Erythrocyte distribution width (RBC) [Entitic vol] 44.8 fL 35.1-43.9 [facility] Immature granulocytes/100 WBC (Bld) 0.400 % 0.0-0.9 [facility] Comment on above: IG% - Immature Granu locytes (promyelocytes, myelocytes and metamyelocytes) > 1% indicates that a LEFT SHIFT is Present. Nucleated RBC/100 WBC (Bld) [Ratio] 0 % 0-5 [facility] LipaseOrdered By: Dr. Fransisco hayes 01-12-2023 Lipase [Catalytic activity/Vol] 27 U/L Normal 13-75 [facility] Comment on above: Please note:LIPASE r evised reference range effective 23. New Lipase methodology. Expected to produce lower values than the previous assay method. NEW Reference Range: 13 - 75 U/L Result Comment: Manisha pope note: LIPASE revised reference range effective 23. New Lipase methodology. Expected to produce lower values than the previous assay method. NEW Reference Range: 13 - 75 U/L Performed By: #### M 100.3000, M100.4001, #### [facility] [address] [place], [address] MCHC [Mass/volume] by Automa malvin countOrdered By: Dr. Moody on 01-12-2023 MCHC (RBC) [Mass/Vol] 32.2 g/dL Normal 32-36 [facility] Comment on above: Performed By: #### M 100.3000, M100.4000, #### [facility] [address] [place], [address] No Panel InformationOrdered By: Dr. Moody on 01-12-2023 Estimated GFR (MDRD) Amer 71 mL/min >60 [facility] Comment on above: GFR Calc Estimated GFR (MDRD) Non-Af Amer 59 mL/min >60 [facility] Comment on above: Non- GFR Calc Platelets bldOrdered By: Dr. Moody on 01-12-2023 Platelets (Bld) [#/Vol] 379 10*3/uL Normal 150-450 [facility] Comment on above: Performed By: #### M 100.3000, M100.4001, #### [facility] [address] [place], [address] Serum or plasma albumin keny urement (mass/volume)Ordered By: Dr. Moody on 01-12-2023 Albumin [Mass/Vol] 2.8 g/dL Low 3.2-5.0 [facility] Comment on above: Performed By: #### M 100.3000, M100.4001, #### [facility] [address] [place], [address] Serum or plasma albumin/glob ulin mass ratioOrdered By: Dr. Moody on 01-12-2023 Albumin/Globulin [Mass ratio] 0.7 {ratio} Low 0.9-2.4 [facility] Comment on above: Performed By: #### M 100.3000, M100.4001, M1 #### [facility] [address] [place], [address] Serum or plasma calcium keny urement (mass/volume)Ordered By: Dr. Moody on 01-12-2023 Calcium [Mass/Vol] 8.7 mg/dL 8.5-10.1 [facility] Serum or plasma creatinine m easurement (mass/volume)Ordered By: Dr. Moody on 01-12-2023 Creatinine [Mass/Vol] 1.27 mg/dL Normal 0.70-1.30 [facility] Comment on above: The validity of the calculated GFR & GFRAA in patients over 70 years has not been determined. Clinical correlation is essential. Result Comment: The validity of the calculated GFR GFRAA in patients over 70 years has not been determined. Clinical correlation is essential. Performed By: #### M 100.3000, M100.4001, M1 #### [facility] [address] [place], [address] Serum or plasma urea nitroge n measurement (mass/volume)Ordered By: Dr. Moody on 01-12-2023 Urea nitrogen [Mass/Vol] 13 mg/dL Normal 7-18 [facility] Comment on above: Performed By: #### M 100.3000, M100.4001, M1 #### [facility] [address] [place], [address] Thin prep Papanicolaou smear with manual screeningOrdered By: Dr. Moody on 01-12-2023 Thin prep Papanicolaou smear with manual screening 23 U/L 15-37 [facility] Thin prep Papanicolaou smear with manual screening 6 5-15 [facility] Absolute lymphocyte countOrd ered By: Dr. Moody on 01-01-2023 Lymphocytes Auto (Unsp spec) [#/Vol] 1.69 10*3/uL 0.83-4.51 [facility] Basophil percentageOrdered B y: Dr. Moody on 01-01-2023 Basophils/100 WBC (Bld) 0.5 % 0-1 [facility] Bilirubin [Mass/Vol] 0.80 mg/dL 0.20-1.00 [facility] Comment on above: For patients on eltr ombopag therapy, use of Dimension Colome TBIL is not recommended. Chloride [Moles/Vol] 98 mmol/L 98-107 [facility] Cholesterol [Mass/Vol] 119 mg/dL <200 [facility] Comment on above: <200 mg/dL Desirable 200-240 mg/dL Borderline >240 mg/dL High Risk Eosinophils/100 WBC (Bld) 2.9 % 0-5 [facility] Glucose [Mass/Vol] 112 mg/dL 74-106 [facility] Comment on above: Fasting Glucose resu lt from 100 to 125 mg/dL suggests IMPAIRED HOMEOSTASIS per A.D.A. criteria. Neutrophils (Bld) [#/Vol] 7.0 10*3/uL 2.0-7.7 [facility] Neutrophils/100 WBC (Bld) 70.0 % 47-70 [facility] Potassium [Moles/Vol] 3.0 mmol/L 3.5-5.1 [facility] Protein [Mass/Vol] 6.6 g/dL 6.4-8.2 [facility] Sodium [Moles/Vol] 133 mmol/L 136-145 [facility] Testosterone [Mass/Vol] 42.29 ng/dL [facility] Comment on above: CENTRAL 90% REFERENC E RANGES MALE AGE <50 197.44 - 669.58 ng/dL MALE AGE > or = 50 187.72 - 684.19 ng/dL FEMALE AGE <50 8.38 - 35.01 ng/dL FEMALE AGE > or = 50 <7.00 - 35.92 ng/dL Effective as of 04/23/21 Triglyceride [Mass/Vol] 128 mg/dL <199 [facility] Comment on above: The drugs N-Acetylcy steine and Metamizole may falsely depress this assay.Serum Triglycerides Reference Interval Normal <150 mg/dL Borderline high 150 - 199 mg/dL High 200 - 499 mg/dL Very High > or = 500 mg/dL WBC (Bld) [#/Vol] 10.0 10*3/uL 4.4-11.0 [facility] Blood erythrocytes count (nu mber/volume)Ordered By: Dr. Moody on 01-01-2023 RBC (Bld) [#/Vol] 4.61 10*6/uL 4.6-6.2 [facility] Blood hemoglobin measurement (mass/volume)Ordered By: Dr. Moody on 01-01-2023 Hemoglobin (Bld) [Mass/Vol] 13.2 g/dL 13.0-16.5 [facility] Blood lymphocytes/100 leukoc ytesOrdered By: Dr. Moody on 01-01-2023 Lymphocytes/100 WBC (Bld) 16.9 % 19-41 [facility] Blood monocytes/100 leukocyt esOrdered By: Dr. Moody on 01-01-2023 Monocytes/100 WBC (Bld) 8.3 % 0-10 [facility] Blood platelet mean volumeOr dered By: Dr. Moody on 01-01-2023 Platelet mean volume (Bld) [Entitic vol] 9.6 fL 6.2-12.0 [facility] CBC W/Diff, Automatedon Absolute Lymph 1.69 X10 3/uL Normal 0.83-4.51 [facility] Comment on above: Performed By: #### L 500.4100, L100.0100, L500.4050, L506.1000, L509.3000, L501.9520 #### [facility] [address] [place], [address] Absolute Neut 7.0 X10 3/uL Normal 2.0-7.7 [facility] Comment on above: Performed By: #### L 500.4100, L100.0100, L500.4050, L506.1000, L509.3000, L501.9520 #### [facility] [address] [place], [address] Basophils/100 WBC (Bld) 0.5 % Normal 0-1 [facility] Comment on above: Performed By: #### L 500.4100, L100.0100, L500.4050, L506.1000, L509.3000, L501.9520 #### [facility] [address] [place], [address] Eosinophils/100 WBC (Bld) 2.9 % Normal 0-5 [facility] Comment on above: Performed By: #### L 500.4100, L100.0100, L500.4050, L506.1000, L509.3000, L501.9520 #### [facility] [address] [place], [address] Erythrocyte distribution width (RBC) [Ratio] 14.0 % Normal 11.6-14.6 [facility] Comment on above: Performed By: #### L 500.4100, L100.0100, L500.4050, L506.1000, L509.3000, L501.9520 #### [facility] [address] [place], [address] Hematocrit (Bld) [Volume fraction] 41.5 % Normal 40-54 [facility] Comment on above: Performed By: #### L 500.4100, L100.0100, L500.4050, L506.1000, L509.3000, L501.9520 #### [facility] [address] [place], [address] Hemoglobin (Bld) [Mass/Vol] 13.2 g/dL Normal 13.0-16.5 [facility] Comment on above: Performed By: #### L 500.4100, L100.0100, L500.4050, L506.1000, L509.3000, L501.9520 #### [facility] [address] [place], [address] IG% 1.400 High 0.0-0.9 [facility] Comment on above: Result Comment: IG% - Immature Granulocytes (promyelocytes, myelocytes and metamyelocytes) > 1% indicates that a LEFT SHIFT is Present. Performed By: #### L 500.4100, L100.0100, L500.4050, L506.1000, L509.3000, L501.9520 #### [facility] [address] [place], [address] Lymphocytes/100 WBC (Bld) 16.9 % Low 19-41 [facility] Comment on above: Performed By: #### L 500.4100, L100.0100, L500.4050, L506.1000, L509.3000, L501.9520 #### [facility] [address] [place], [address] MCH (RBC) [Entitic mass] 28.6 pg Normal 27.0-32.0 [facility] Comment on above: Performed By: #### L 500.4100, L100.0100, L500.4050, L506.1000, L509.3000, L501.9520 #### [facility] [address] [place], [address] MCHC (RBC) [Mass/Vol] 31.8 g/dL Low 32-36 [facility] Comment on above: Performed By: #### L 500.4100, L100.0100, L500.4050, L506.1000, L509.3000, L501.9520 #### [facility] [address] [place], [address] MCV (RBC) [Entitic vol] 90.0 fL Normal 80-94 [facility] Comment on above: Performed By: #### L 500.4100, L100.0100, L500.4050, L506.1000, L509.3000, L501.9520 #### [facility] [address] [place], [address] Monocytes/100 WBC (Bld) 8.3 % Normal 0-10 [facility] Comment on above: Performed By: #### L 500.4100, L100.0100, L500.4050, L506.1000, L509.3000, L501.9520 #### [facility] [address] [place], [address] Neutrophils/100 WBC (Bld) 70.0 % Normal 47-70 [facility] Comment on above: Performed By: #### L 500.4100, L100.0100, L500.4050, L506.1000, L509.3000, L501.9520 #### [facility] [address] [place], [address] Nucleated RBC (Bld) [#/Vol] 0 10*3/uL Normal 0-5 [facility] Comment on above: Performed By: #### L 500.4100, L100.0100, L500.4050, L506.1000, L509.3000, L501.9520 #### [facility] [address] [place], [address] Platelet mean volume (Bld) [Entitic vol] 9.6 fL Normal 6.2-12.0 [facility] Comment on above: Performed By: #### L 500.4100, L100.0100, L500.4050, L506.1000, L509.3000, L501.9520 #### [facility] [address] [place], [address] Platelets (Bld) [#/Vol] 326 10*3/uL Normal 150-450 [facility] Comment on above: Performed By: #### L 500.4100, L100.0100, L500.4050, L506.1000, L509.3000, L501.9520 #### [facility] [address] [place], [address] RBC (Bld) [#/Vol] 4.61 10*6/uL Normal 4.6-6.2 [facility] Comment on above: Performed By: #### L 500.4100, L100.0100, L500.4050, L506.1000, L509.3000, L501.9520 #### [facility] [address] [place], [address] RDW SD 46.2 fl High 35.1-43.9 [facility] Comment on above: Performed By: #### L 500.4100, L100.0100, L500.4050, L506.1000, L509.3000, L501.9520 #### [facility] [address] [place], [address] WBC (Bld) [#/Vol] 10.0 10*3/uL Normal 4.4-11.0 [facility] Comment on above: Performed By: #### L 500.4100, L100.0100, L500.4050, L506.1000, L509.3000, L501.9520 #### [facility] [address] [place], [address] Comprehensive Metabolic Prof coon 01-01-2023 Albumin [Mass/Vol] 2.5 g/dL Low 3.2-5.0 [facility] Comment on above: Performed By: #### L 500.4100, L100.0100, L500.4050, L506.1000, L509.3000, L501.9520 #### [facility] [address] [place], [address] Albumin/Globulin [Mass ratio] 0.6 {ratio} Low 0.9-2.4 [facility] Comment on above: Performed By: #### L 500.4100, L100.0100, L500.4050, L506.1000, L509.3000, L501.9520 #### [facility] [address] [place], [address] ALK P 102 U/L Normal 45-117 [facility] Comment on above: Performed By: #### L 500.4100, L100.0100, L500.4050, L506.1000, L509.3000, L501.9520 #### [facility] [address] [place], [address] ALT [Catalytic activity/Vol] 39 U/L Normal 16-61 [facility] Comment on above: Performed By: #### L 500.4100, L100.0100, L500.4050, L506.1000, L509.3000, L501.9520 #### [facility] [address] [place], [address] AST [Catalytic activity/Vol] 26 U/L Normal 15-37 [facility] Comment on above: Performed By: #### L 500.4100, L100.0100, L500.4050, L506.1000, L509.3000, L501.9520 #### [facility] [address] [place], [address] Bilirubin [Mass/Vol] 0.80 mg/dL Normal 0.20-1.00 [facility] Comment on above: Result Comment: For patients on eltrombopag therapy, use of Dimension Colome TBIL is not recommended. Performed By: #### L 500.4100, L100.0100, L500.4050, L506.1000, L509.3000, L501.9520 #### [facility] [address] [place], [address] BUN/CRE 14.8 RATIO Normal 10-20 [facility] Comment on above: Performed By: #### L 500.4100, L100.0100, L500.4050, L506.1000, L509.3000, L501.9520 #### [facility] [address] [place], [address] CA,Total 8.6 mg/dL Normal 8.5-10.1 [facility] Comment on above: Performed By: #### L 500.4100, L100.0100, L500.4050, L506.1000, L509.3000, L501.9520 #### [facility] [address] [place], [address] Chloride [Moles/Vol] 98 mmol/L Normal 98-107 [facility] Comment on above: Performed By: #### L 500.4100, L100.0100, L500.4050, L506.1000, L509.3000, L501.9520 #### [facility] [address] [place], [address] CO2 [Moles/Vol] 28.0 mmol/L Normal 21.0-32.0 [facility] Comment on above: Performed By: #### L 500.4100, L100.0100, L500.4050, L506.1000, L509.3000, L501.9520 #### [facility] [address] [place], [address] Creatinine [Mass/Vol] 1.28 mg/dL Normal 0.70-1.30 [facility] Comment on above: Result Comment: The validity of the calculated GFR GFRAA in patients over 70 years has not been determined. Clinical correlation is essential. Performed By: #### L 500.4100, L100.0100, L500.4050, L506.1000, L509.3000, L501.9520 #### [facility] [address] [place], [address] EST GFR - AA 70 mL/min Normal >60 [facility] Comment on above: Result Comment: Afri can [place]in[place]e GFR Calc Performed By: #### L 500.4100, L100.0100, L500.4050, L506.1000, L509.3000, L501.9520 #### [facility] [address] [place], [address] GAP 7 Normal 5-15 [facility] Comment on above: Performed By: #### L 500.4100, L100.0100, L500.4050, L506.1000, L509.3000, L501.9520 #### [facility] [address] [place], [address] GFR/1.73 sq M.predicted among non-blacks MDRD (S/P/Bld) [Vol rate/Area] 58 mL/min/{1.73_m2} Low >60 [facility] Comment on above: Result Comment: Non- GFR Calc Performed By: #### L 500.4100, L100.0100, L500.4050, L506.1000, L509.3000, L501.9520 #### [facility] [address] [place], [address] Globulin (S) [Mass/Vol] 4.1 g/dL Normal 2.2-4.2 [facility] Comment on above: Performed By: #### L 500.4100, L100.0100, L500.4050, L506.1000, L509.3000, L501.9520 #### [facility] [address] [place], [address] Glucose [Mass/Vol] 112 mg/dL High 74-106 [facility] Comment on above: Result Comment: Fast ing Glucose result from 100 to 125 mg/dL suggests IMPAIRED HOMEOSTASIS per A.D.A. criteria. Performed By: #### L 500.4100, L100.0100, L500.4050, L506.1000, L509.3000, L501.9520 #### [facility] [address] [place], [address] Potassium [Moles/Vol] 3.0 mmol/L Low 3.5-5.1 [facility] Comment on above: Performed By: #### L 500.4100, L100.0100, L500.4050, L506.1000, L509.3000, L501.9520 #### [facility] [address] [place], [address] Sodium [Moles/Vol] 133 mmol/L Low 136-145 [facility] Comment on above: Performed By: #### L 500.4100, L100.0100, L500.4050, L506.1000, L509.3000, L501.9520 #### [facility] [address] [place], [address] T PROT 6.6 g/dL Normal 6.4-8.2 [facility] Comment on above: Performed By: #### L 500.4100, L100.0100, L500.4050, L506.1000, L509.3000, L501.9520 #### [facility] [address] [place], [address] Urea nitrogen [Mass/Vol] 19 mg/dL High 7-18 [facility] Comment on above: Performed By: #### L 500.4100, L100.0100, L500.4050, L506.1000, L509.3000, L501.9520 #### [facility] [address] [place], [address] Determination of erythrocyte mean corpuscular volume (MCV)Ordered By: Dr. Moody on 01-01-2023 MCV (RBC) [Entitic vol] 90.0 fL 80-94 [facility] Hematocrit Auto (Bld) [Volum e fraction]Ordered By: Dr. Moody on 01-01-2023 Hematocrit (Bld) [Volume fraction] 41.5 % 40-54 [facility] - Chemistry and C hemistry - challengeOrdered By: Dr. Moody on 01-01-2023 ALP [Catalytic activity/Vol] 102 U/L 45-117 [facility] ALT [Catalytic activity/Vol] 39 U/L 16-61 [facility] CO2 [Moles/Vol] 28.0 mmol/L 21.0-32.0 [facility] Globulin (S) [Mass/Vol] 4.1 g/dL 2.2-4.2 [facility] Urea nitrogen/Creatinine [Mass ratio] 14.8 mg/mg 10-20 [facility] - Hematology and Cell countsOrdered By: Dr. Moody on 01-01-2023 Erythrocyte distribution width (RBC) [Entitic vol] 46.2 fL 35.1-43.9 [facility] Erythrocyte distribution width (RBC) [Ratio] 14.0 % 11.6-14.6 [facility] Immature granulocytes/100 WBC (Bld) 1.400 % 0.0-0.9 [facility] Comment on above: IG% - Immature Granu locytes (promyelocytes, myelocytes and metamyelocytes) > 1% indicates that a LEFT SHIFT is Present. MCH (RBC) [Entitic mass] 28.6 pg 27.0-32.0 [facility] Nucleated RBC/100 WBC (Bld) [Ratio] 0 % 0-5 [facility] Lipid Profileon 01-01-2023 Cholesterol [Mass/Vol] 119 mg/dL Normal 200 [facility] Comment on above: Result Comment: <200 mg/dL Desirable 200-240 mg/dL Borderline >240 mg/dL High Risk Performed By: #### L 500.4100, L100.0100, L500.4050, L506.1000, L509.3000, L501.9520 #### [facility] [address] [place], [place], [id number] (768) Cholesterol in HDL [Mass/Vol] 16 mg/dL Low [facility] Comment on above: Result Comment: The drugs N-Acetylcysteine and Metamizole may falsely depress this assay. Reference Range HDL <40 mg/dL Low HDL Cholesterol HDL >or= 60 mg/dL High HDL Cholesterol Performed By: #### L 500.4100, L100.0100, L500.4050, L506.1000, L509.3000, L501.9520 #### [facility] [address] [place], [address] Cholesterol in LDL [Mass/Vol] 77 mg/dL Normal 0-130 [facility] Comment on above: Performed By: #### L 500.4100, L100.0100, L500.4050, L506.1000, L509.3000, L501.9520 #### [facility] [address] [place], [address] Cholesterol in VLDL [Mass/Vol] 26 mg/dL Normal 5-40 [facility] Comment on above: Performed By: #### L 500.4100, L100.0100, L500.4050, L506.1000, L509.3000, L501.9520 #### [facility] [address] [place], [address] Triglyceride [Mass/Vol] 128 mg/dL Normal [facility] Comment on above: Result Comment: The drugs N-Acetylcysteine and Metamizole may falsely depress this assay. Serum Triglycerides Reference Interval Normal <150 mg/dL Borderline high 150 - 199 mg/dL High 200 - 499 mg/dL Very High > or = 500 mg/dL Performed By: #### L 500.4100, L100.0100, L500.4050, L506.1000, L509.3000, L501.9520 #### [facility] [address] [place], [address] MCHC Auto (RBC) [Mass/Vol]Or dered By: Dr. Moody on 01-01-2023 MCHC (RBC) [Mass/Vol] 31.8 g/dL 32-36 [facility] No Panel InformationOrdered By: Dr. Moody on 01-01-2023 Estimated GFR (MDRD) Amer 70 mL/min >60 [facility] Comment on above: GFR Calc Estimated GFR (MDRD) Non-Af Amer 58 mL/min >60 [facility] Comment on above: Non- GFR Calc Thyroid Stimulating Hormone (TSH) 2.41 uIU/mL 0.358-3.74 [facility] Vitamin D 25-Hydroxy 24.3 ng/mL [facility] Comment on above: Vitamin D 25(OH) Sta tus Range Deficiency <20 ng/mL (50nmol/L) Insufficiency 20 - 30 ng/mL (50 - 75 nmol/L) Sufficiency 30 - 100 ng/mL (75 - 250 nmol/L) Toxicity >100 ng/mL (>250 nmol/L) Platelets bldOrdered By: Dr. Moody on 01-01-2023 Platelets (Bld) [#/Vol] 326 10*3/uL 150-450 [facility] Serum or plasma albumin keny urement (mass/volume)Ordered By: Dr. Moody on 01-01-2023 Albumin [Mass/Vol] 2.5 g/dL 3.2-5.0 [facility] Serum or plasma albumin/glob ulin mass ratioOrdered By: Dr. Moody on 01-01-2023 Albumin/Globulin [Mass ratio] 0.6 {ratio} 0.9-2.4 [facility] Serum or plasma calcium keny urement (mass/volume)Ordered By: Dr. Moody on 01-01-2023 Calcium [Mass/Vol] 8.6 mg/dL 8.5-10.1 [facility] Serum or plasma cholesterol in HDL measurement (mass/volume)Ordered By: Dr. Moody on 01-01-2023 Cholesterol in HDL [Mass/Vol] 16 mg/dL >40 [facility] Comment on above: The drugs N-Acetylcy steine and Metamizole may falsely depress this assay. Reference Range HDL <40 mg/dL Low HDL Cholesterol HDL >or= 60 mg/dL High HDL Cholesterol Serum or plasma cholesterol in VLDL measurement (mass/volume)Ordered By: Dr. Moody on 01-01-2023 Cholesterol in VLDL [Mass/Vol] 26 mg/dL 5-40 [facility] Serum or plasma creatinine m easurement (mass/volume)Ordered By: Dr. Moody on 01-01-2023 Creatinine [Mass/Vol] 1.28 mg/dL 0.70-1.30 [facility] Comment on above: The validity of the calculated GFR & GFRAA in patients over 70 years has not been determined. Clinical correlation is essential. Serum or plasma low density lipoprotein (LDL) cholesterol measurement (mass/volume)Ordered By: Dr. Moody on 01-01-2023 Cholesterol in LDL [Mass/Vol] 77 mg/dL 0-130 [facility] Serum or plasma urea nitroge n measurement (mass/volume)Ordered By: Dr. Moody on 01-01-2023 Urea nitrogen [Mass/Vol] 19 mg/dL 7-18 [facility] Testosterone, Serum Totalon 01-01-2023 Testosterone [Mass/Vol] 42.29 ng/dL Normal [facility] Comment on above: Result Comment: CENT RAL 90% REFERENCE RANGES MALE AGE <50 197.44 - 669.58 ng/dL MALE AGE > or = 50 187.72 - 684.19 ng/dL FEMALE AGE <50 8.38 - 35.01 ng/dL FEMALE AGE > or = 50 <7.00 - 35.92 ng/dL Effective as of 04/23/21 Performed By: #### L 500.4100, L100.0100, L500.4050, L506.1000, L509.3000, L501.9520 #### [facility] [address] [place], [address] Thin prep Papanicolaou smear with manual screeningOrdered By: Dr. Moody on 01-01-2023 Thin prep Papanicolaou smear with manual screening 26 U/L 15-37 [facility] Thin prep Papanicolaou smear with manual screening 7 5-15 [facility] Thyroid Stim Hormone (TSH)on 01-01-2023 TSH 2.41 uIU/mL Normal 0.358-3.74 [facility] Comment on above: Performed By: #### M 100.3000, M100.4001, M100.2000 #### [facility] [address] [place], [place], [address] Vitamin D,25 Hydroxyon 01-01 Vitamin D 25-OH 24.3 ng/mL Normal [facility] Comment on above: Result Comment: Mehreen min D 25(OH) Status Range Deficiency <20 ng/mL (50nmol/L) Insufficiency 20 - 30 ng/mL (50 - 75 nmol/L) Sufficiency 30 - 100 ng/mL (75 - 250 nmol/L) Toxicity >100 ng/mL (>250 nmol/L) Performed By: #### L 500.4100, L100.0100, L500.4050, L506.1000, L509.3000, L501.9520 #### [facility] [address] [place], [address] Basic Metabolic Profile (BMP )on 12-26-2022 BUN/CRE 13.6 RATIO Normal 10-20 [facility] Comment on above: Performed By: #### M 100.3000, M100.4001, #### [facility] [address] [place], [address] CA,Total 8.7 mg/dL Normal 8.5-10.1 [facility] Comment on above: Performed By: #### M 100.3000, M100.400, #### [facility] [address] [place], [address] Chloride [Moles/Vol] 99 mmol/L Normal 98-107 [facility] Comment on above: Performed By: #### M 100.3000, M100.400, #### [facility] [address] [place], [address] CO2 [Moles/Vol] 30.0 mmol/L Normal 21.0-32.0 [facility] Comment on above: Performed By: #### M 100.3000, M100.4001, #### [facility] [address] [place], [address] Creatinine [Mass/Vol] 1.18 mg/dL Normal 0.70-1.30 [facility] Comment on above: Result Comment: The validity of the calculated GFR GFRAA in patients over 70 years has not been determined. Clinical correlation is essential. Performed By: #### M 100.3000, M100.4001, #### [facility] [address] [place], [address] ECRCL 50.57 ml/min Normal [facility] Comment on above: Performed By: #### M 100.3000, M1.4000, #### [facility] [address] [place], [address] EST GFR - AA 77 mL/min Normal >60 [facility] Comment on above: Result Comment: Afri can Surinamese GFR Calc Performed By: #### M 100.3000, M1.4000, #### [facility] [address] [place], [address] GAP 4 Low 5-15 [facility] Comment on above: Performed By: #### M 100.3000, M1.4000, #### [facility] [address] [place], [address] GFR/1.73 sq M.predicted among non-blacks MDRD (S/P/Bld) [Vol rate/Area] 64 mL/min/{1.73_m2} Normal >60 [facility] Comment on above: Result Comment: Non- GFR Calc Performed By: #### M 100.3000, M1.4000, #### [facility] [address] [place], [address] Glucose [Mass/Vol] 143 mg/dL High 74-106 [facility] Comment on above: Result Comment: Fast ing Glucose result greater than or equal to 126 mg/dL suggests DIABETES MELLITUS per A.D.A. criteria. Performed By: #### M 100.3000, M100.400, #### [facility] [address] [place], [address] Potassium [Moles/Vol] 4.2 mmol/L Normal 3.5-5.1 [facility] Comment on above: Performed By: #### M 100.3000, M100.400, #### [facility] [address] [place], [address] Sodium [Moles/Vol] 133 mmol/L Low 136-145 [facility] Comment on above: Performed By: #### M 100.3000, M100.400, #### [facility] [address] [place], [address] Urea nitrogen [Mass/Vol] 16 mg/dL Normal 7-18 [facility] Comment on above: Performed By: #### M 100.3000, M1.400, #### [facility] [address] [place], [address] Basophil percentageOrdered B y: Dr. Daly on 12-26-2022 Bilirubin [Mass/Vol] 0.50 mg/dL 0.20-1.00 [facility] Comment on above: For patients on eltr ombopag therapy, use of Dimension Colome TBIL is not recommended. Chloride [Moles/Vol] 99 mmol/L 98-107 [facility] Glucose [Mass/Vol] 143 mg/dL 74-106 [facility] Comment on above: Fasting Glucose resu lt greater than or equal to 126 mg/dL suggests DIABETES MELLITUS per A.D.A. criteria. Potassium [Moles/Vol] 4.2 mmol/L 3.5-5.1 [facility] Protein [Mass/Vol] 6.2 g/dL 6.4-8.2 [facility] Sodium [Moles/Vol] 133 mmol/L 136-145 [facility] Comprehensive Metabolic Prof ilon 12-26-2022 Albumin [Mass/Vol] 2.8 g/dL Low 3.2-5.0 [facility] Comment on above: Performed By: #### M 100.3000, M1.400, #### [facility] [address] [place], [address] Albumin/Globulin [Mass ratio] 0.8 {ratio} Low 0.9-2.4 [facility] Comment on above: Performed By: #### M 100.3000, M100.400, #### [facility] [address] [place], [address] ALK P 74 U/L Normal 45-117 [facility] Comment on above: Performed By: #### M 100.3000, .4000, #### [facility] [address] [place], [address] ALT [Catalytic activity/Vol] 50 U/L Normal 16-61 [facility] Comment on above: Performed By: #### M 100.3000, .4000, #### [facility] [address] [place], [address] AST [Catalytic activity/Vol] 38 U/L High 15-37 [facility] Comment on above: Performed By: #### M 100.3000, .4000, #### [facility] [address] [place], [address] Bilirubin [Mass/Vol] 0.50 mg/dL Normal 0.20-1.00 [facility] Comment on above: Result Comment: For patients on eltrombopag therapy, use of Dimension Colome TBIL is not recommended. Performed By: #### M 100.3000, M1.4000, #### [facility] [address] [place], [address] Globulin (S) [Mass/Vol] 3.4 g/dL Normal 2.2-4.2 [facility] Comment on above: Performed By: #### M 100.3000, M100.400, #### [facility] [address] [place], [address] T PROT 6.2 g/dL Low 6.4-8.2 [facility] Comment on above: Performed By: #### M 100.3000, M100.4001, M100.2000 #### [facility] [address] [place], [address] Laboratory - Chemistry and C hemistry - challengeOrdered By: Dr. Daly on 12-26-2022 ALP [Catalytic activity/Vol] 74 U/L 45-117 [facility] ALT [Catalytic activity/Vol] 50 U/L 16-61 [facility] CO2 [Moles/Vol] 30.0 mmol/L 21.0-32.0 [facility] Globulin (S) [Mass/Vol] 3.4 g/dL 2.2-4.2 [facility] Urea nitrogen/Creatinine [Mass ratio] 13.6 mg/mg 10-20 [facility] No Panel InformationOrdered By: Dr. Daly on 12-26-2022 Estimated Creatinine Clearance Calc 50.57 ml/min [facility] Estimated GFR (MDRD) Amer 77 mL/min >60 [facility] Comment on above: GFR Calc Estimated GFR (MDRD) Non-Af Amer 64 mL/min >60 [facility] Comment on above: Non- GFR Calc Serum or plasma albumin keny urement (mass/volume)Ordered By: Dr. Daly on 12-26-2022 Albumin [Mass/Vol] 2.8 g/dL 3.2-5.0 [facility] Serum or plasma albumin/glob ulin mass ratioOrdered By: Dr. Daly on 12-26-2022 Albumin/Globulin [Mass ratio] 0.8 {ratio} 0.9-2.4 [facility] Serum or plasma calcium keny urement (mass/volume)Ordered By: Dr. Daly on 12-26-2022 Calcium [Mass/Vol] 8.7 mg/dL 8.5-10.1 [facility] Serum or plasma creatinine m easurement (mass/volume)Ordered By: Dr. Daly on 12-26-2022 Creatinine [Mass/Vol] 1.18 mg/dL 0.70-1.30 [facility] Comment on above: The validity of the calculated GFR & GFRAA in patients over 70 years has not been determined. Clinical correlation is essential. Serum or plasma urea nitroge n measurement (mass/volume)Ordered By: Dr. Daly on 12-26-2022 Urea nitrogen [Mass/Vol] 16 mg/dL 7-18 [facility] Thin prep Papanicolaou smear with manual screeningOrdered By: Dr. Daly on 12-26-2022 Thin prep Papanicolaou smear with manual screening 38 U/L 15-37 [facility] Thin prep Papanicolaou smear with manual screening 4 5-15 [facility] 12 Lead EKGon 12-25-2022 12 Lead EKG [facility] [address] [place] [address] 12 Lead EKG 12/25/22 1444 MR#: [id number] Acct: [id number] Name: DIANA THURSTON Rep #: [id number] : 1945 77 From: Roscoe Borjas MD Attending Dr: Dr. Luis Antonio Daly MD Status: ADM UMBERTO Ordering Dr: Luis Antonio Daly MD Date: 12/25/22 Location: MT3 Sex: M C Admitted: 12/25/22 Test Reason : RYTHMN CHANGE Blood Pressure : / mmHG Vent. Rate : 087 BPM Atrial Rate : 087 BPM P-R Int : 148 ms QRS Dur : 078 ms QT Int : 384 ms P-R-T Axes : 073 034 094 degrees QTc Int : 462 ms Sinus rhythm with frequent Premature ventricular complexes Otherwise normal ECG When compared with ECG of 25-DEC-2022 11:20, MANUAL COMPARISON REQUIRED, DATA IS UNCONFIRMED Confirmed by YESENIA FONTANEZ, ROSCOE ([id number]), web content editor JOSÉ MIGUEL RICKS ([id number]) on 12/26/2022 1:26:48 PM Referred By: Luis Antonio Daly Confirmed By:ROSCOE BORJAS MD 12/26/22 1326 Date Roscoe Borjas MD CC: Dr. Luis Antonio Daly MD; Dr. Brad Moody MD Signed Normal [facility] 12 Lead EKG [facility] [address] [place] [address] 12 Lead EKG 12/25/22 1120 MR#: [id number] Acct: [id number] Name: DIANA THURSTON ISHAAN Rep #: [id number] : 1945 77 From: Roscoe Borjas MD Attending Dr: Dr. Luis Antonio Daly MD Status: ADM UMBERTO Ordering Dr: Timothy Wilhelm MD Date: 12/25/22 Location: [facility] Sex: M C Admitted: 12/25/22 Test Reason : PRE OP Blood Pressure : / mmHG Vent. Rate : 074 BPM Atrial Rate : 074 BPM P-R Int : 160 ms QRS Dur : 076 ms QT Int : 416 ms P-R-T Axes : 067 018 065 degrees QTc Int : 461 ms Sinus rhythm with marked sinus arrhythmia Nonspecific ST abnormality Abnormal ECG When compared with ECG of 09-APR-2022 07:22, No significant change was found Confirmed by ROSCOE BORJAS MD ([id number]), web content editor JOSÉ MIGUEL RICKS ([id number]) on 12/26/2022 1:24:01 PM Referred By: Luis Antonio Daly Confirmed By:ROSCOE BORJAS MD 12/26/22 1324 Date Roscoe Borjas MD CC: Dr. Luis Antonio Daly MD; Dr. Timothy Wilhelm MD; Dr. Brad Moody MD Signed [facility] Cholangiogram/ O R,Initialon 12-25-2022 Cholangiogram/ O R,Initial [facility] Imaging Services [address] [place] [address] Cholangiogram/ O R,Initial MR#: [id number] Acct: [id number] Name: DIANA THURSTON MIDVALE Rep #: [id number] : 1945 M 77 From: Ludwin mayer MD PCP: Dr. Brad Moody MD Status: ADM UMBERTO Study: Cholangiogram/ O R,Initial Date of Exam: 12/25 Exam# [id number] Ordering Dr: Luis Antonio Daly STUDY: INTRAOPERATIVE CHOLANGIOGRAM. REASON FOR EXAM: Male, 77 years old. Laparoscopic cholecystectomy. FLUOROSCOPY TIME (if supplied): ( 28.6 seconds ) minutes/seconds. 7.86 mGy TECHNIQUE: Attempted intraoperative cholangiogram was performed. COMPARISON: None. FINDINGS: Attempted intraoperative cholangiogram. RAD/Cholangiogram/ O R,Initial IMPRESSION: Attempted intraoperative cholangiogram. Electronically Signed: Ludwin Barragan MD at 10:04 EDT , CC: Dr. Luis Antonio Daly MD; Dr. Brad Moody MD Optical Glass Sawyer: Signed Normal [facility] Discharge Instructionon 11-28 Discharge Instruction [facility] Medical Records Department [address] [place] [address] Instructions for Home/Discharge Instructions 12/25/22 1419 MR#: [id number] Acct: [id number] Name: DIANA THURSTON Rep #: [id number] : 1945 77 From: Luis Antonio Daly MD PCP: Dr. Brad Moody MD Status:REG [facility] Discharge Instructions Procedure Gallbladder Diet Discharge Diet: Light diet - advance as tolerated Activity Discharge Activity: May Not Drive (for 2-3 days or while taking narcotic pain medications.) and - (Do not drive, work heavy equipment or sign legal documents for 24 hours.) May shower in (days): 1 Lifting Restrictions: 20 lbs for 2 weeks Additional Activity Instructions:: Pain medication may cause nausea. You should typically eat light foods as you take your pain medications. Pain medication may also cause constipation. If this is a problem for you, please discuss with your doctor. Dressing / Incision Call your doctor if your incision/area has: Continuous Slow Oozing, Sudden Increased Bleeding, Increased Pain/ Swelling, Increased Redness and Foul Smelling Discharge Call your doctor if you observe: Fever of 101 or Higher Suture Line Care: Avoid Pulling/Pushing and Avoid Pinching/Bending Remove Dressing in: 2 days Additional Dressing/Incision Instructions:: Leave operative bandaids on for 2 days. When you remove dressing, leave Steri-Strips on until your follow-up appointment, or until the Steri-Strips fall off on their own. Follow Up Care Please Follow Up With: Luis Antonio Daly MD When: Please call to schedule 2 week follow up appointment. [phone] Test Results: Test results from this visit will be discussed in further detail at your follow-up appointment, if applicable. Discharge Plan Admission Attending Provider: Luis Antonio Daly Primary Care Provider: Brad Moody Chi Discharge Orders/Prescriptions Prescriptions: New oxycodone 5 mg tablet 5 - 10 mg PO Q6H PRN (Reason: pain) 5 Days Qty: 20 0RF No Action losartan 50 mg tablet 50 mg PO DAILY omeprazole 40 mg capsule,delayed release(DR/EC) 40 mg PO DAILY Label Comments: TAKE 1 CAPSULE BY MOUTH ONCE DAILY FOR 90 DAYS hydrochlorothiazide 12.5 mg tablet 12.5 tab PO DAILY Referrals / Follow Up: Brad Moody Chi, MD [Primary Care Provider] - Disposition Disposition (needs filled in before D/C Order can be placed): Home, Self Care 12/25/22 1420 Luis Antonio Daly MD CC: Dr. Brad Moody MD Signed Normal [facility] Operative Reporton 3 Operative Report [facility] Medical Records Department [address] [place] [address] Operative Report 12/25/22 1416 MR#: [id number] Acct: [id number] Name: DIANA THURSTON Rep #: [id number] : 1945 77 From: Luis Antonio Daly MD PCP: Dr. Brad Moody MD Status:[facility] Location: [place] [address] Report of Operation Date of Procedure: 12/25/22 Pre-Operative Diagnosis: Acute on chronic cholecystitis Post-Operative Diagnosis: Same Surgery/Procedure Performed:: Laparoscopic cholecystectomy Specimen's removed: Gallbladder Description of Procedure: Patient was brought back to the operating room and general anesthesia was induced. The percutaneous cholecystostomy tube was then removed and then the abdomen was prepped and draped in usual sterile fashion. Incision was made superior to the umbilicus and deepened to the fascia which was incised and then a finger sweep was performed and a port was placed into the abdomen and the abdomen was insufflated 15 mmHg. Camera was placed into the abdomen and it was inspected. There was a lot of inflammation in the right upper quadrant. The tube tract was taken down using electrocautery and then the fat was retracted inferiorly. The gallbladder was grasped and elevated and was very inflamed. It was followed downward to the infundibulum. The cystic duct was identified and dissected free. Cholangiograms were attempted but there was no way to flush contrast down the cystic duct. The cystic duct was milked back but there is still no flushing of the duct and cholangiograms were unable to be performed. The midportion of the gallbladder was then dissected free from the gallbladder fossa and dissected inferiorly until the cystic duct was identified from that side. It appeared that the cystic duct only entering the gallbladder and did not enter the common duct and the common duct seem to be free of this area. The cystic artery was identified and clipped and divided. Next the cystic duct was clipped and divided. The gallbladder was then taken off the gallbladder fossa using letter cautery. Surgicel powder was placed over the gallbladder fossa to stop oozing. The area was irrigated and suctioned dry and it appeared to be hemostatic. Gallbladder was placed into a bag and removed. The abdomen was allowed to desufflate from air and the ports were removed. The midline fascia was closed with a [id number] 0 Vicryl suture. Subcutaneous tissue was irrigated and suctioned dry. Local was instilled in all the incisions. All the incisions were closed with interrupted 4-0 Monocryl suture and Steri-Strips and bandages were applied. Patient was taken to PACU in stable condition tolerated the procedure well. Admit VTE Documentation VTE Mechan Device Prophylaxis: SCD's 12/25/22 5828 Cosigner Signature (if applicable): CC: Dr. Luis Antonio Daly MD; Dr. Brad Moody MD Signed Normal [facility] Surgery Specimen Level IIIon 12-25-2022 Surgery Specimen Level III Patient Age/Sex Location Account Attending Physician DIANA THURSTON 77/M MS3 [id number] Dr. Luis Antonio Daly MD Specimen: [id number] Received: 12/25/22 Status: JENNIFER Tsai Num: [id number] Spec Type: CARLOS Ibarra Dr: Dr. Luis Antonio Daly MD HEADER OPERATION: Laparoscopic cholecystectomy PRE-OP DIAGNOSIS: Acute cholecystitis TISSUE SUBMITTED: Gallbladder MICROSCOPIC DIAGNOSIS Gallbladder, cholecystectomy: Acute and chronic cholecystitis. Focal fat necrosis. AM:sue 12/29/2022 MICROSCOPIC DESCRIPTION Slides are reviewed. GROSS DESCRIPTION Received is one container labeled with the patient's name and designated gallbladder. The specimen consists of a gallbladder measuring 8.0 cm in length and up to 3.5 cm in diameter. The external surface is pink-fatima, smooth and glistening for the most part. Focally it is granular, hemorrhagic and contains cautery artifact. The lumen is markedly narrow and no bile is noted. No stones are identified in the container or in the gallbladder. The gallbladder wall shows an increased amount of subserosal fat and measures up to 1.5 cm in thickness (inclusive of fat). Dry Curer sections from the gallbladder and the cystic duct are submitted in two cassettes. / SJ:sue 12/26/2022 TC:3 CPT: 53589 Patient Age/Sex Location Account Attending Physician DIANA THURSTON 77/M MS3 [id number] Dr. Luis Antonio Daly MD Signed (signature on file) Dr. Jian Sanchez, DO 12/29/22 1303 Normal [facility] Comment on above: Performed By: #### M 100.3000, M100.4001, M100.1999 #### [facility] [address] [place], [place], [address] Surgery Visit Reporton 12-11 Surgery Visit Report [facility] [place] [facility] [address] [place], [place] [address] OFFICE VISIT Date of Service: 12/11/22 MR#: [id number] Acct: [id number] Name: DIANA THURSTON Rep #: [id number] : 1945 Provider: Dr. Luis Antonio puente MD Age/Sex: 77/M Location: [facility] Status: Signed Intake Vital Signs 12/02/22 18:18 Height 5 ft 7 in Intake Visit Reasons: CHOLECYSTITIS 12/04 Chief Complaint: acute cholecystits Financial Report Service Sales Agent Required: No Is patient in pain?: No Allergies No Known Allergies Allergy (Verified 12/11/22 13:17) Medications hydrochlorothiazide 12.5 mg tablet 12.5 tab PO DAILY 04/09/22 [History Confirmed 12/11/22] losartan 50 mg tablet 50 mg PO DAILY 04/09/22 [History Confirmed 12/11/22] omeprazole 40 mg capsule,delayed release 40 mg PO DAILY 04/09/22 [History Confirmed 12/11/22] amoxicillin 500 mg-potassium clavulanate 125 mg tablet (Augmentin) 1 tab PO BID #20 tabs 12/04/22 [Rx Confirmed 12/11/22] Subjective Details: Patient reports he is not having any right upper quadrant pain and he is tolerating a diet. No nausea or vomiting. Objective Details: Abdomen is soft and nontender with IRENE in place with bilious drainage Coding Level of Care Code Off vis,est,level 3 Diagnoses Acute cholecystitis K81.0 [facility] Medical History BPH (benign prostatic hyperplasia) GERD (gastroesophageal reflux disease) Hepatomegaly High cholesterol History of bladder cancer Hx of gastroesophageal reflux (GERD) Hypertension Obesity Tobacco use Surgical History H/O chest tube placement H/O hand surgery History of bladder surgery History of surgery of head History of tonsillectomy and adenoidectomy Family History Brother Heart disease Hypertension CAD (coronary artery disease) Myocardial infarction Father Heart disease Hypertension CAD (coronary artery disease) Myocardial infarction Mother Alzheimer disease Social History household members: none housing: house number of children: 1 current occupational status: retired Smoking Status: Current some day smoker tobacco type: cigars how long ago did patient quit smoking: Quit 8 years during, started 18 w/ 1 pk/2.5 day until 10 cigar/d x 3 yrs. alcohol intake: never substance use type: does not use Assessment and Plan (No Qualifiers) Assessment and Plan (1) Acute cholecystitis: Status: Acute Plan: Patient was in the hospital with acute cholecystitis and cholecystostomy tube was placed. Patient is improving and is tolerating antibiotics well. I will plan for laparoscopic cholecystectomy in about 2 weeks. I discussed the procedure in detail with the patient. I discussed the risks, benefits, and alternatives of the procedure. I discussed the risks including but not limited to bleeding, infection, injury to surrounding organs such as the liver, bile duct, bowels. I did discuss the possibility of having to convert to an open procedure as well as the possibility that if any injuries occurred this may necessitate further surgery at a tertiary care center. Luis Antonio Daly MD Pager: [facility] [address] [place] [address], [address] [place] [address] Office: 12/12/22 1303 Date Luis Antonio Daly MD [facility] Signature: Date (if applicable) CC: Dr. Brad Moody MD [facility] Anaerobic cultureOrdered By: Dr. Daly on 12-08-2022 Bacteria identified Anaer cx Nom (Unsp spec) No anaerobic bacteria isolated. [facility] Culture, Anaerobic Any Sourc zayra 12-08-2022 CUAN gallbladder No anaerobic bacteria isolated. [facility] Comment on above: Performed By: #### M 100.3000, M100.4001, M100.2000 #### [facility] [address] [place], [place], [id number] Bacteria identified Cx Nom ( Wound)Ordered By: Dr. Daly on 12-06-2022 Wound Culture Escherichia coli [facility] Wound Culture Klebsiella pneumonia e sp pneum [facility] Wound Cultureon 12-06-2022 WC gallbladder Escherichia coli Amount Growth 1+ Klebsiella pneumoniae sp pneum Amount Growth 1+ Escherichia coli: REACTION Ampicillin Islt EBONY 16 I Ampicillin+Sulbac Islt EBONY 4 S ceFAZolin Islt EBONY <=4 S Cefepime Islt EBONY <=0.12 S cefTRIAXone Islt EBONY <=0.25 S Ciprofloxacin Islt EBONY <=0.25 S Ertapenem Islt EBONY <=0.12 S B-Lactamase Extended Susc Islt NEG Gentamicin Islt EBONY <=1 S Imipenem Islt EBONY <=0.25 S levoFLOXacin Islt EBONY <=0.12 S Pip+Tazo Islt EBONY <=4 S Tobramycin Islt EBONY <=1 S TMP SMX Islt EBONY <=20 S Klebsiella pneumoniae sp pneum: REACTION Ampicillin Islt EBONY R Ampicillin+Sulbac Islt EBONY <=2 S ceFAZolin Islt EBONY <=4 S Cefepime Islt EBONY <=0.12 S cefTRIAXone Islt EBONY <=0.25 S Ciprofloxacin Islt EBONY <=0.25 S Ertapenem Islt EBONY <=0.12 S B-Lactamase Extended Susc Islt NEG Gentamicin Islt EBONY <=1 S Imipenem Islt EBONY <=0.25 S levoFLOXacin Islt EBONY <=0.12 S Pip+Tazo Islt EBONY <=4 S Tobramycin Islt EBONY <=1 S TMP SMX Islt EBONY <=20 S Normal [facility] Comment on above: Performed By: #### M 100.3000, M100.4001, M100.1999 #### [facility] [address] [place], [address] Culture, urineOrdered By: Dr Steffi Moody on 12-04-2022 Bacteria identified Cx Nom (U) Positive [facility] Gram Stainon 12-04-2022 GS gallbladder Gram Stain 2+ White Blood Cells 1+ Epithelial cells No organisms seen Normal [facility] Comment on above: Performed By: #### M 100.3000, M100.4001, M100.1999 #### [facility] [address] [place], [place], [address] Gram stain for investigation of transfusion reactionOrdered By: Dr. Daly on 12-04-2022 Microscopic observation Gram stain Nom (Unsp spec) [facility] Urine Cultureon 12-04-2022 [facility] Mixed Gram Positive Organisms [place] Count 25,000-50,000 [facility] Mixed contaminants. Submit a new specimen if indicated. Normal [facility] [facility] Comment on above: Performed By: #### M 100.2200 #### [facility] [address] [place], [place], [address] Absolute lymphocyte countOrd ered By: Dr. Daly on 12-03-2022 Lymphocytes Auto (Unsp spec) [#/Vol] 1.86 10*3/uL 0.83-4.51 [facility] Basophil percentageOrdered B y: Dr. Daly on 12-03-2022 Basophils/100 WBC (Bld) 0.7 % 0-1 [facility] Bilirubin [Mass/Vol] 0.70 mg/dL 0.20-1.00 [facility] Comment on above: For patients on eltr ombopag therapy, use of Dimension Colome TBIL is not recommended. Chloride [Moles/Vol] 103 mmol/L 98-107 [facility] Eosinophils/100 WBC (Bld) 2.1 % 0-5 [facility] Glucose [Mass/Vol] 87 mg/dL 74-106 [facility] Neutrophils (Bld) [#/Vol] 4.6 10*3/uL 2.0-7.7 [facility] Neutrophils/100 WBC (Bld) 60.9 % 47-70 [facility] Potassium [Moles/Vol] 3.1 mmol/L 3.5-5.1 [facility] Protein [Mass/Vol] 6.1 g/dL 6.4-8.2 [facility] Sodium [Moles/Vol] 136 mmol/L 136-145 [facility] WBC (Bld) [#/Vol] 7.5 10*3/uL 4.4-11.0 [facility] Blood erythrocytes count (nu mber/volume)Ordered By: Dr. Daly on 12-03-2022 RBC (Bld) [#/Vol] 4.44 10*6/uL 4.6-6.2 [facility] Blood hemoglobin measurement (mass/volume)Ordered By: Dr. Daly on 12-03-2022 Hemoglobin (Bld) [Mass/Vol] 13.3 g/dL 13.0-16.5 [facility] Blood lymphocytes/100 leukoc ytesOrdered By: Dr. Daly on 12-03-2022 Lymphocytes/100 WBC (Bld) 24.9 % 19-41 [facility] Blood monocytes/100 leukocyt esOrdered By: Dr. Daly on 12-03-2022 Monocytes/100 WBC (Bld) 10.3 % 0-10 [facility] Blood platelet mean volumeOr dered By: Dr. Daly on 12-03-2022 Platelet mean volume (Bld) [Entitic vol] 9.1 fL 6.2-12.0 [facility] CBC W/Diff, Automatedon Absolute Lymph 1.86 X10 3/uL Normal 0.83-4.51 [facility] Comment on above: Performed By: #### M 100.3000, M100.4001, #### [facility] [address] [place], [address] Absolute Neut 4.6 X10 3/uL Normal 2.0-7.7 [facility] Comment on above: Performed By: #### M 100.3000, M100.4001, #### [facility] [address] [place], [address] Basophils/100 WBC (Bld) 0.7 % Normal 0-1 [facility] Comment on above: Performed By: #### M 100.3000, M100.4001, #### [facility] [address] [place], [address] Eosinophils/100 WBC (Bld) 2.1 % Normal 0-5 [facility] Comment on above: Performed By: #### M 100.3000, M100.4001, #### [facility] [address] [place], [address] Erythrocyte distribution width (RBC) [Ratio] 14.0 % Normal 11.6-14.6 [facility] Comment on above: Performed By: #### M 100.3000, M100.4001, #### [facility] [address] [place], [address] Hematocrit (Bld) [Volume fraction] 39.2 % Low 40-54 [facility] Comment on above: Performed By: #### M 100.3000, M100.4001, #### [facility] [address] [place], [address] Hemoglobin (Bld) [Mass/Vol] 13.3 g/dL Normal 13.0-16.5 [facility] Comment on above: Performed By: #### M 100.3000, M100.4001, M12000 #### [facility] [address] [place], [address] IG% 1.100 High 0.0-0.9 [facility] Comment on above: Result Comment: IG% - Immature Granulocytes (promyelocytes, myelocytes and metamyelocytes) > 1% indicates that a LEFT SHIFT is Present. Performed By: #### M 100.3000, M1.400, #### [facility] [address] [place], [address] Lymphocytes/100 WBC (Bld) 24.9 % Normal 19-41 [facility] Comment on above: Performed By: #### M 100.3000, , #### [facility] [address] [place], [address] MCH (RBC) [Entitic mass] 30.0 pg Normal 27.0-32.0 [facility] Comment on above: Performed By: #### M 100.3000, M1.4000, #### [facility] [address] [place], [address] MCHC (RBC) [Mass/Vol] 33.9 g/dL Normal 32-36 [facility] Comment on above: Performed By: #### M 100.3000, M1.4000, #### [facility] [address] [place], [address] MCV (RBC) [Entitic vol] 88.3 fL Normal 80-94 [facility] Comment on above: Performed By: #### M 100.3000, M1.400, #### [facility] [address] [place], [address] Monocytes/100 WBC (Bld) 10.3 % High 0-10 [facility] Comment on above: Performed By: #### M 100.3000, M100.4001, #### [facility] [address] [place], [address] Neutrophils/100 WBC (Bld) 60.9 % Normal 47-70 [facility] Comment on above: Performed By: #### M 100.3000, M100.400, #### [facility] [address] [place], [address] Nucleated RBC (Bld) [#/Vol] 0 10*3/uL Normal 0-5 [facility] Comment on above: Performed By: #### M 100.3000, .4000, #### [facility] [address] [place], [address] Platelet mean volume (Bld) [Entitic vol] 9.1 fL Normal 6.2-12.0 [facility] Comment on above: Performed By: #### M 100.3000, .4000, #### [facility] [address] [place], [address] Platelets (Bld) [#/Vol] 237 10*3/uL Normal 150-450 [facility] Comment on above: Performed By: #### M 100.3000, .4000, #### [facility] [address] [place], [address] RBC (Bld) [#/Vol] 4.44 10*6/uL Low 4.6-6.2 [facility] Comment on above: Performed By: #### M 100.3000, M1.400, #### [facility] [address] [place], [address] RDW SD 45.4 fl High 35.1-43.9 [facility] Comment on above: Performed By: #### M 100.3000, M1.400, #### [facility] [address] [place], [address] WBC (Bld) [#/Vol] 7.5 10*3/uL Normal 4.4-11.0 [facility] Comment on above: Performed By: #### M 100.3000, M100.4001, M100.2000 #### [facility] [address] [place], [address] CT Guidance Abscess Drg w/Ca thon 12-03-2022 CT Guidance Abscess Drg w/Cath [facility] Imaging Services [address] [facility] [place] [address] CT Guidance Abscess Drg w/Cath MR#: [id number] Acct: [id number] Name: DIANA THURSTON Rep #: [id number] : 1945 M 77 From: Ludwin mayer MD PCP: Dr. Brad Moody MD Status: ADM IN Study: CT Guidance Abscess Drg w/Cath Date of Exam: 0 12/03/22 Exam# [id number] Ordering Dr: Luis Antonio Daly PROCEDURE: CT DIRECTED PERCUTANEOUS CHOLECYSTOSTOMY. DATE OF EXAMINATION: December 03, 2022. INDICATION: Male, 77 years old. Acute cholecystitis. PHYSICIAN: Ludwin Barragan M.D. CONSENT: Written informed consent was obtained having explained the risks, benefits and alternatives in detail with the patient who accepted the risks and agreed to proceed. Laboratory review and clinical assessment was performed. CONSCIOUS SEDATION PROTOCOL: The Drugs used were: 2 mg Versed, IV., and 50 mcg Fentanyl, IV. The sedation time was: 22 minutes. Conscious sedation was started at the 1:53 PM and terminated at 2:15 PM. The conscious sedation protocol was independently monitored. RADIATION DOSAGE (If Supplied By Facility): CTDIvol = ( 27.5 ) mGy, DLP = ( 1470.1 ) mGycm. Individualized dose optimization techniques were utilized. TECHNIQUE: CT sections were made through the abdomen and pelvis revealing acute cholecystitis.. The skin surface was prepped and aped in a sterile fashion. Puncture of this collection was performed initially with a 5 Icelandic catheter and fluid was aspirated. 8 Icelandic drainage catheter was then inserted into the collection and formed into position. Additional fluid was aspirated for a total of approximately 60 cc of cloudy fluid. The catheter was sutured into position to allow for continued drainage. Followup CT sections reveals good position of the catheter. CT/CT Guidance Abscess Drg w/Cath IMPRESSION: 1. CT directed percutaneous cholecystostomy using CT image guidance and image documentation as described. 2. Conscious Sedation protocol utilized with independent monitoring Electronically Signed: Ludwin Barragan MD at 14:44 EST Reading Location ID and State: [facility] / [place] , Service support , CC: Dr. Luis Antonio Daly MD; Dr. Brad Moody MD Optical Glass Sawyer: Signed Normal [facility] Comprehensive Metabolic Prof ilon 12-03-2022 Albumin [Mass/Vol] 2.4 g/dL Low 3.2-5.0 [facility] Comment on above: Performed By: #### M 100.3000, M100.4001, #### [facility] [address] [place], [address] Albumin/Globulin [Mass ratio] 0.6 {ratio} Low 0.9-2.4 [facility] Comment on above: Performed By: #### M 100.3000, M100.4001, #### [facility] [address] [place], [address] ALK P 92 U/L Normal 45-117 [facility] Comment on above: Performed By: #### M 100.3000, M100.4001, #### [facility] [address] [place], [address] ALT [Catalytic activity/Vol] 48 U/L Normal 16-61 [facility] Comment on above: Performed By: #### M 100.3000, .4000, #### [facility] [address] [place], [address] AST [Catalytic activity/Vol] 28 U/L Normal 15-37 [facility] Comment on above: Performed By: #### M 100.3000, .4000, #### [facility] [address] [place], [address] Bilirubin [Mass/Vol] 0.70 mg/dL Normal 0.20-1.00 [facility] Comment on above: Result Comment: For patients on eltrombopag therapy, use of Dimension Colome TBIL is not recommended. Performed By: #### M 100.3000, , #### [facility] [address] [place], [address] BUN/CRE 15.5 RATIO Normal 10-20 [facility] Comment on above: Performed By: #### M 100.3000, , #### [facility] [address] [place], [address] CA,Total 8.5 mg/dL Normal 8.5-10.1 [facility] Comment on above: Performed By: #### M 100.3000, .4000, #### [facility] [address] [place], [address] Chloride [Moles/Vol] 103 mmol/L Normal 98-107 [facility] Comment on above: Performed By: #### M 100.3000, M1.400, #### [facility] [address] [place], [address] CO2 [Moles/Vol] 25.0 mmol/L Normal 21.0-32.0 [facility] Comment on above: Performed By: #### M 100.3000, M100.400, #### [facility] [address] [place], [address] Creatinine [Mass/Vol] 1.03 mg/dL Normal 0.70-1.30 [facility] Comment on above: Result Comment: The validity of the calculated GFR GFRAA in patients over 70 years has not been determined. Clinical correlation is essential. Performed By: #### M 100.3000, M100.4001, #### [facility] [address] [place], [address] ECRCL 57.94 ml/min Normal [facility] Comment on above: Performed By: #### M 100.3000, M100.400, #### [facility] [address] [place], [address] EST GFR - AA 90 mL/min Normal >60 [facility] Comment on above: Result Comment: Afri can Surinamese GFR Calc Performed By: #### M 100.3000, M100.4000, #### [facility] [address] [place], [address] GAP 8 Normal 5-15 [facility] Comment on above: Performed By: #### M 100.3000, M100.400, #### [facility] [address] [place], [address] GFR/1.73 sq M.predicted among non-blacks MDRD (S/P/Bld) [Vol rate/Area] 75 mL/min/{1.73_m2} Normal >60 [facility] Comment on above: Result Comment: Non- GFR Calc Performed By: #### M 100.3000, M100.4001, #### [facility] [address] [place], [address] Globulin (S) [Mass/Vol] 3.7 g/dL Normal 2.2-4.2 [facility] Comment on above: Performed By: #### M 100.3000, M100.400, #### [facility] [address] [place], [address] Glucose [Mass/Vol] 87 mg/dL Normal 74-106 [facility] Comment on above: Performed By: #### M 100.3000, M100.400, #### [facility] [address] [place], [address] Potassium [Moles/Vol] 3.1 mmol/L Low 3.5-5.1 [facility] Comment on above: Performed By: #### M 100.3000, M100.400, #### [facility] [address] [place], [address] Sodium [Moles/Vol] 136 mmol/L Normal 136-145 [facility] Comment on above: Performed By: #### M 100.3000, M100.400, #### [facility] [address] [place], [address] T PROT 6.1 g/dL Low 6.4-8.2 [facility] Comment on above: Performed By: #### M 100.3000, M100.400, #### [facility] [address] [place], [address] Urea nitrogen [Mass/Vol] 16 mg/dL Normal 7-18 [facility] Comment on above: Performed By: #### M 100.3000, M100.400, #### [facility] [address] [place], [address] Determination of erythrocyte mean corpuscular volume (MCV)Ordered By: Dr. Daly on 12-03-2022 MCV (RBC) [Entitic vol] 88.3 fL 80-94 [facility] Hematocrit Auto (Bld) [Volum e fraction]Ordered By: Dr. Daly on 12-03-2022 Hematocrit (Bld) [Volume fraction] 39.2 % 40-54 [facility] INR in Blood by Coagulation assayOrdered By: Dr. Daly on 12-03-2022 INR Coag (Bld) [Relative time] 1.1 {INR} [facility] - Chemistry and C hemistry - challengeOrdered By: Dr. Daly on 12-03-2022 ALP [Catalytic activity/Vol] 92 U/L 45-117 [facility] ALT [Catalytic activity/Vol] 48 U/L 16-61 [facility] CO2 [Moles/Vol] 25.0 mmol/L 21.0-32.0 [facility] Globulin (S) [Mass/Vol] 3.7 g/dL 2.2-4.2 [facility] Urea nitrogen/Creatinine [Mass ratio] 15.5 mg/mg 10-20 [facility] - CoagulationOrde red By: Dr. Daly on 12-03-2022 aPTT Coag (Bld) [Time] 34.0 s 24.1-36.2 [facility] PT Coag (PPP) [Time] 14.1 s 11.7-14.9 [facility] - Hematology and Cell countsOrdered By: Dr. Daly on 12-03-2022 Erythrocyte distribution width (RBC) [Entitic vol] 45.4 fL 35.1-43.9 [facility] Erythrocyte distribution width (RBC) [Ratio] 14.0 % 11.6-14.6 [facility] Immature granulocytes/100 WBC (Bld) 1.100 % 0.0-0.9 [facility] Comment on above: IG% - Immature Granu locytes (promyelocytes, myelocytes and metamyelocytes) > 1% indicates that a LEFT SHIFT is Present. MCH (RBC) [Entitic mass] 30.0 pg 27.0-32.0 [facility] Nucleated RBC/100 WBC (Bld) [Ratio] 0 % 0-5 [facility] MCHC Auto (RBC) [Mass/Vol]Or dered By: Dr. Daly on 12-03-2022 MCHC (RBC) [Mass/Vol] 33.9 g/dL 32-36 [facility] No Panel InformationOrdered By: Dr. Daly on 12-03-2022 Estimated Creatinine Clearance Calc 57.94 ml/min [facility] Estimated GFR (MDRD) Amer 90 mL/min >60 [facility] Comment on above: GFR Calc Estimated GFR (MDRD) Non-Af Amer 75 mL/min >60 [facility] Comment on above: Non- GFR Calc Partial Thromboplast Timeon 12-03-2022 aPTT Coag (Bld) [Time] 34.0 s Normal 24.1-36.2 [facility] Comment on above: Performed By: #### M 100.3000, M100.4001, M1 #### [facility] [address] [place], [address] Platelets bldOrdered By: Dr. Daly on 12-03-2022 Platelets (Bld) [#/Vol] 237 10*3/uL 150-450 [facility] Prothrombin Time w/INRon INR Coag (PPP) [Relative time] 1.1 {INR} Normal [facility] Comment on above: Performed By: #### M 100.3000, M100.4001, M1 #### [facility] [address] [place], [address] PT Coag (PPP) [Time] 14.1 s Normal 11.7-14.9 [facility] Comment on above: Performed By: #### M 100.3000, M100.4001, M1 #### [facility] [address] [place], [address] Serum or plasma albumin keny urement (mass/volume)Ordered By: Dr. Daly on 12-03-2022 Albumin [Mass/Vol] 2.4 g/dL 3.2-5.0 [facility] Serum or plasma albumin/glob ulin mass ratioOrdered By: Dr. Daly on 12-03-2022 Albumin/Globulin [Mass ratio] 0.6 {ratio} 0.9-2.4 [facility] Serum or plasma calcium keny urement (mass/volume)Ordered By: Dr. Daly on 12-03-2022 Calcium [Mass/Vol] 8.5 mg/dL 8.5-10.1 [facility] Serum or plasma creatinine m easurement (mass/volume)Ordered By: Dr. Daly on 12-03-2022 Creatinine [Mass/Vol] 1.03 mg/dL 0.70-1.30 [facility] Comment on above: The validity of the calculated GFR & GFRAA in patients over 70 years has not been determined. Clinical correlation is essential. Serum or plasma urea nitroge n measurement (mass/volume)Ordered By: Dr. Daly on 12-03-2022 Urea nitrogen [Mass/Vol] 16 mg/dL 7-18 [facility] Thin prep Papanicolaou smear with manual screeningOrdered By: Dr. Daly on 12-03-2022 Thin prep Papanicolaou smear with manual screening 28 U/L 15-37 [facility] Thin prep Papanicolaou smear with manual screening 8 5-15 [facility] Abdomen/Pelvis WITH Contrast on 12-02-2022 Abdomen/Pelvis WITH Contrast [facility] Imaging Services [address] [facility] [place] [address] Abdomen/Pelvis WITH Contrast MR#: [id number] Acct: [id number] Name: DIANA THURSTON Rep #: [id number] : 1945 M 77 From: Phani Salamanca MD PCP: Dr. Brad Moody MD Status: REG CLI Study: Abdomen/Pelvis WITH Contrast Date of Exam: 04/19 Exam# [id number] Ordering Dr: Brad Moody MD STUDY: CT ABDOMEN AND PELVIS WITH CONTRAST REASON FOR EXAM: Male, 77 years old. ABDOMINAL PAIN RADIATION DOSAGE (If Supplied By Facility): CTDIvol = ( 16.29 ) mGy, DLP = ( 1281.93 ) mGycm TECHNIQUE: Transaxial images were obtained from the dome of the diaphragm to the symphysis pubis without oral contrast. Oral and amp; IV Gastrografin and amp; 100mL Isovue-370 was administered. Sagittal and coronal images were reconstructed. Individualized dose optimization techniques were used for this CT. COMPARISON: None. FINDINGS: Mild bibasilar interstitial thickening.. The visualized portions of the heart are within normal limits. Nonspecific fatty infiltrated liver without mass or bile duct dilatation. Thick-walled gallbladder without calcified stones demonstrating pericholecystic edema suspicious for acute cholecystitis.. Normal spleen. Normal pancreas. Right adrenal is normal. 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 A tiny cyst in the left renal cortex which will not require additional imaging Normal visualized stomach. Normal small intestine. There is diffusely ahaustral appearance to the ascending and transverse colon which may be consistent with nonspecific inflammatory bowel disease. Minor diverticular changes of the colon without evidence for acute diverticulitis The appendix is visualized and appears normal. Atherosclerotic changes of the aorta without evidence for aneurysm. Normal inferior vena cava. Normal retroperitoneum. Mild nonspecific enlargement of prostate association with incompletely distended thick walled bladder. No discrete focal bladder wall mass although study limited without contrast Small bilateral fat-containing inguinal hernias. Lumbar spine demonstrates mild spondylosis. CT/Abdomen/Pelvis WITH Contrast IMPRESSION: Nonspecific fatty infiltrated liver. Thick-walled gallbladder with pericholecystic edema without definitive evidence for intraluminal stones possibly representing a calculus cholecystitis. Ultrasound would be helpful for further evaluation Other findings as above Electronically Signed: Phani Salamanca MD at 16:04 EST , CC: Dr. Brad Moody MD Optical Glass Sawyer: Signed Normal [facility] Absolute lymphocyte countOrd ered By: Dr. Moody on 12-02-2022 Lymphocytes Auto (Unsp spec) [#/Vol] 1.82 10*3/uL 0.83-4.51 [facility] Amylaseon 12-02-2022 JOAN 34 U/L Normal 25-115 [facility] Comment on above: Performed By: #### M 100.3000, M100.4001, #### [facility] [address] [place], [address] Automated blood hematocrit ( percentage)Ordered By: Dr. Moody on 12-02-2022 Hematocrit (Bld) [Volume fraction] 46.0 % Normal 40-54 [facility] Comment on above: Performed By: #### M 100.3000, M1.4000, #### [facility] [address] [place], [address] Basophil percentageOrdered B y: Dr. Moody on 12-02-2022 Bilirubin [Mass/Vol] 1.00 mg/dL Normal 0.20-1.00 [facility] Comment on above: For patients on eltr ombopag therapy, use of Dimension Colome TBIL is not recommended. Result Comment: For patients on eltrombopag therapy, use of Dimension Colome TBIL is not recommended. Performed By: #### M 100.3000, M100.4000, #### [facility] [address] [place], [address] Chloride [Moles/Vol] 97 mmol/L Low 98-107 [facility] Comment on above: Performed By: #### M 100.3000, M100.4001, #### [facility] [address] [place], [address] Glucose [Mass/Vol] 104 mg/dL Normal 74-106 [facility] Comment on above: Fasting Glucose resu lt from 100 to 125 mg/dL suggests IMPAIRED HOMEOSTASIS per A.D.A. criteria. Result Comment: Fast ing Glucose result from 100 to 125 mg/dL suggests IMPAIRED HOMEOSTASIS per A.D.A. criteria. Performed By: #### M 100.3000, M1.4001, #### [facility] [address] [place], [address] Potassium [Moles/Vol] 3.4 mmol/L Low 3.5-5.1 [facility] Comment on above: Performed By: #### M 100.3000, M100.4001, #### [facility] [address] [place], [address] Sodium [Moles/Vol] 132 mmol/L Low 136-145 [facility] Comment on above: Performed By: #### M 100.3000, M100.400, #### [facility] [address] [place], [address] Basophils/100 WBC (Bld) 0.5 % Normal 0-1 [facility] Comment on above: Performed By: #### M 100.3000, M100.400, #### [facility] [address] [place], [address] Eosinophils/100 WBC (Bld) 1.0 % Normal 0-5 [facility] Comment on above: Performed By: #### M 100.3000, M100.400, #### [facility] [address] [place], [address] Neutrophils/100 WBC (Bld) 66.3 % Normal 47-70 [facility] Comment on above: Performed By: #### M 100.3000, M100.4001, #### [facility] [address] [place], [address] WBC (Bld) [#/Vol] 8.9 10*3/uL Normal 4.4-11.0 [facility] Comment on above: Performed By: #### M 100.3000, M100.4001, #### [facility] [address] [place], [address] Amylase [Catalytic activity/Vol] 34 U/L 25-115 [facility] Neutrophils (Bld) [#/Vol] 5.9 10*3/uL 2.0-7.7 [facility] Protein [Mass/Vol] 7.1 g/dL 6.4-8.2 [facility] Blood erythrocytes count (nu mber/volume)Ordered By: Dr. Moody on 12-02-2022 RBC (Bld) [#/Vol] 5.11 10*6/uL Normal 4.6-6.2 [facility] Comment on above: Performed By: #### M 100.3000, M100.4001, #### [facility] [address] [place], [address] Blood hemoglobin measurement (mass/volume)Ordered By: Dr. Moody on 12-02-2022 Hemoglobin (Bld) [Mass/Vol] 15.2 g/dL Normal 13.0-16.5 [facility] Comment on above: Performed By: #### M 100.3000, M100.4001, #### [facility] [address] [place], [address] Blood lymphocytes/100 leukoc ytesOrdered By: Dr. Moody on 12-02-2022 Lymphocytes/100 WBC (Bld) 20.5 % Normal 19-41 [facility] Comment on above: Performed By: #### M 100.3000, M100.4001, #### [facility] [address] [place], [address] Blood monocytes/100 leukocyt esOrdered By: Dr. Moody on 12-02-2022 Monocytes/100 WBC (Bld) 10.7 % High 0-10 [facility] Comment on above: Performed By: #### M 100.3000, M100.4001, M1 #### [facility] [address] [place], [address] Blood platelet mean volumeOr dered By: Dr. Moody on 12-02-2022 Platelet mean volume (Bld) [Entitic vol] 9.2 fL Normal 6.2-12.0 [facility] Comment on above: Performed By: #### M 100.3000, M100.4001, #### [facility] [address] [place], [address] CBC W/Diff, Automatedon Absolute Lymph 1.82 X10 3/uL Normal 0.83-4.51 [facility] Comment on above: Performed By: #### M 100.3000, M100.400, #### [facility] [address] [place], [address] Absolute Neut 5.9 X10 3/uL Normal 2.0-7.7 [facility] Comment on above: Performed By: #### M 100.3000, M100.400, #### [facility] [address] [place], [address] IG% 1.000 High 0.0-0.9 [facility] Comment on above: Result Comment: IG% - Immature Granulocytes (promyelocytes, myelocytes and metamyelocytes) > 1% indicates that a LEFT SHIFT is Present. Performed By: #### M 100.3000, M100.400, #### [facility] [address] [place], [address] Nucleated RBC (Bld) [#/Vol] 0 10*3/uL Normal 0-5 [facility] Comment on above: Performed By: #### M 100.3000, M100.400, #### [facility] [address] [place], [address] RDW SD 46.7 fl High 35.1-43.9 [facility] Comment on above: Performed By: #### M 100.3000, M100.4001, #### [facility] [address] [place], [address] CBC W/Diff, AutomatedOrdered By: Dr. Moody on 12-02-2022 Erythrocyte distribution width (RBC) [Ratio] 14.0 % Normal 11.6-14.6 [facility] Comment on above: Performed By: #### M 100.3000, M100.400, #### [facility] [address] [place], [address] MCH (RBC) [Entitic mass] 29.7 pg Normal 27.0-32.0 [facility] Comment on above: Performed By: #### M 100.3000, M100.4000, #### [facility] [address] [place], [address] Comprehensive Metabolic Prof ilon 12-02-2022 ALK P 123 U/L High 45-117 [facility] Comment on above: Performed By: #### M 100.3000, M100.400, #### [facility] [address] [place], [address] AST [Catalytic activity/Vol] 44 U/L High 15-37 [facility] Comment on above: Performed By: #### M 100.3000, M100.400, #### [facility] [address] [place], [address] BUN/CRE 14.7 RATIO Normal 10-20 [facility] Comment on above: Performed By: #### M 100.3000, M100.400, #### [facility] [address] [place], [address] CA,Total 9.1 mg/dL Normal 8.5-10.1 [facility] Comment on above: Performed By: #### M 100.3000, .4001, #### [facility] [address] [place], [address] EST GFR - AA 70 mL/min Normal >60 [facility] Comment on above: Result Comment: Afri can Surinamese GFR Calc Performed By: #### M 100.3000, M100.4001, #### [facility] [address] [place], [address] GAP 7 Normal 5-15 [facility] Comment on above: Performed By: #### M 100.3000, M100.4001, #### [facility] [address] [place], [address] GFR/1.73 sq M.predicted among non-blacks MDRD (S/P/Bld) [Vol rate/Area] 58 mL/min/{1.73_m2} Low >60 [facility] Comment on above: Result Comment: Non- GFR Calc Performed By: #### M 100.3000, M100.4001, #### [facility] [address] [place], [address] T PROT 7.1 g/dL Normal 6.4-8.2 [facility] Comment on above: Performed By: #### M 100.3000, M100.4001, #### [facility] [address] [place], [address] Comprehensive Metabolic Prof ilOrdered By: Dr. Moody on 12-02-2022 ALT [Catalytic activity/Vol] 67 U/L High 16-61 [facility] Comment on above: Performed By: #### M 100.3000, M100.4001, #### [facility] [address] [place], [address] CO2 [Moles/Vol] 28.0 mmol/L Normal 21.0-32.0 [facility] Comment on above: Performed By: #### M 100.3000, M100.4001, M100.1999 #### [facility] [address] [place], [address] Globulin (S) [Mass/Vol] 4.4 g/dL High 2.2-4.2 [facility] Comment on above: Performed By: #### M 100.3000, M100.4001, M100.1999 #### [facility] [address] [place], [address] Determination of erythrocyte mean corpuscular volume (MCV)Ordered By: Dr. Moody on 12-02-2022 MCV (RBC) [Entitic vol] 90.0 fL Normal 80-94 [facility] Comment on above: Performed By: #### M 100.3000, M100.4001, M100.1999 #### [facility] [address] [place], [address] Emergency Department Summary on 12-02-2022 Emergency Department Summary [facility] Medical Records Department [address] [place] [address] Emergency Department Summary 12/02/22 MR#: [id number] Acct: [id number] Name: DIANA THURSTON Rep #: [id number] : 1945 77 From: Sanaz Dunbar DO PCP: Dr. Brad Moody MD Status:ADM [facility]PI - GI History of Present Illness Chief Complaint: Abd Pain Detail of Chief Complaint: Abdominal pain Informant: patient Narrative Narrative: Patient presents to the emergency department from outpatient CT for concern for a calculus cholecystitis. Patient tells me that 6 days ago after eating he felt full very quickly and became quite nauseated but did not vomit. States subsequently did well for several days and then 3 days ago ate some chicken noodle soup again got very full very quickly. Today saw his primary care physician who examined him and upon pushing on his abdomen became concerned as to how tender he was. Patient had lab work-up which showed a normal white count and slightly elevated LFTs. Patient had a CT scan of the abdomen and pelvis that showed thick-walled gallbladder with pericholecystic edema without definitive evidence for intraluminal stones possibly representing a calculus cholecystitis. Ultrasound would be helpful for further evaluation. Patient denies any abdominal pain. He denies any fever. He denies chest pain. He is not on blood thinners. Prior similar symptoms: No PFSH PFSH Medical History BPH (benign prostatic hyperplasia) GERD (gastroesophageal reflux disease) Hepatomegaly High cholesterol History of bladder cancer Hypertension Obesity Tobacco use Home Medications hydrochlorothiazide 12.5 mg tablet 12.5 tab PO DAILY 04/09/22 [History Last Taken 12/02/22] losartan 50 mg tablet 50 mg PO DAILY 04/09/22 [History Last Taken 12/02/22] omeprazole 40 mg capsule,delayed release 40 mg PO DAILY 04/09/22 [History Last Taken 12/02/22] Allergy/AdvReac Type Severity Reaction Status Date / Time No Known Allergies Allergy Verified 12/02/22 16:39 Family History Brother Heart disease Hypertension CAD (coronary artery disease) Myocardial infarction Father Heart disease Hypertension CAD (coronary artery disease) Myocardial infarction Mother Alzheimer disease Surgical History H/O chest tube placement H/O hand surgery History of bladder surgery History of surgery of head History of tonsillectomy and adenoidectomy Social History (Updated 04/09/22 @ 06:44 by Nani Schilling) household members: none housing: house number of children: 1 current occupational status: retired Smoking Status: Current every day smoker tobacco type: cigars how long ago did patient quit smoking: Quit 8 years during, started 18 w/ 1 pk/2.5 day until 10 cigar/d x 3 yrs. alcohol intake: never substance use type: does not use ROS ROS ED Review of Systems ROS Unobtainable: other Constitutional Constitutional ED: Reports lethargy; Denies chills, fever(s), sweats or weight loss Eyes Eyes: Denies blurry vision, change in vision or diplopia ENT ENT ED: Denies rhinorrhea or sore throat Cardiovascular Cardiovascular: Denies chest pain, orthopnea or racing heartbeat Respiratory/Chest Respiratory/Chest: Denies cough, dyspnea, dyspnea on exertion, orthopnea or sputum Gastrointestinal Gastrointestinal: Reports nausea; Denies abdominal pain, diarrhea or vomiting Genitourinary Genitourinary ED: Denies dysuria, hematuria or urinary frequency Musculoskeletal Musculoskeletal: Denies arthralgias, back pain, myalgias or neck pain Integumentary Denies abscess, Abrasions or rash Neurologic Neurologic: Denies headache(s) or weakness Psychiatric Psychiatric: Denies anxiety, depression or suicidal thoughts Endocrine Endocrinology: Denies polydipsia, polyphagia or polyuria Hematologic/Lymphatic Hematologic/Lymphatic: Denies easy bleeding, easy bruising or lymphadenopathy Allergic/Immunologic Allergic/Immunologic ED: Denies mouth swelling, tongue swelling or urticaria EXAM Physical Exam Const Vital Signs: 12/02/22 16:21 Temperature 97 F L Temperature Source Temporal Pulse Rate 75 Respiratory Rate 18 Blood Pressure 139/79 H Blood Pressure Mean 99 Pulse Ox 98 Oxygen Delivery Method Room Air Positive well nourished and well developed General Appearance ED: well developed and NAD HEENT Reports TM's clear and moist mucous membranes normocephalic and atraumatic; Negative for trauma or tenderness Tympanic Membrane ED: Yes TM's clear Eyes PERRL and EOMs intact bilaterally General Eye ED: Negative for pale conjunctiva or scleral icterus Neck no lymphadenopathy, supple and no JVD General: Negative for tende (more content not included)... Normal [facility] Gallbladderon 12-02-2022 Gallbladder [facility] Services [address] [place] [address] Gallbladder MR#: [id number] Acct: [id number] Name: DIANA THURSTON Rep #: [id number] : 1945 M 77 From: Phani Salamanca MD PCP: Dr. Brad Moody MD Status: ADM IN Study: Gallbladder Date of Exam: 12/02/22 Exam# [id number] Ordering Dr: Sanaz Dunbar DO STUDY: ABDOMINAL ULTRASOUND - RIGHT UPPER QUADRANT REASON FOR VISIT: Male, 77 years old abdominal pain TECHNIQUE: Ultrasound evaluation of the right upper quadrant was performed with real-time and static davis-scale imaging. TECHNICAL QUALITY: Adequate. COMPARISON: None. FINDINGS: Liver: The liver measures 19 cm. There is diffusely increased echogenicity of the liver. The bile ducts are within normal limits. There is hepatic color flow. The direction of portal flow is hepatopetal. There is no demonstrated mass lesion. Gallbladder: Normal distended gallbladder. The gallbladder wall measures 8 mm. There is a negative sonographic Casas''s sign. There is pericholecystic fluid. There are multiple gallstones. Common Bile Duct (C.B.D.): The common bile duct measures 6 mm. Pancreas: Not well visualized due to bowel gas producing artifact. Right Kidney: Normal size of the right kidney. The right kidney measures 11.6 x 7 x 6 cm. Normal renal cortex. The right cortex measures 1.5 cm. There is no demonstrated renal mass or cyst. There is no right hydronephrosis. US/Gallbladder IMPRESSION: Thick-walled gallbladder containing stones with pericholecystic edema suspicious for chronic cholecystitis and superimposed acute cholecystitis. HIDA scan would be useful for further evaluation if clinically warranted Common bile duct is upper normal in size and there is no definitive evidence for intraductal stone Electronically Signed: Phani Salamanca MD at 17:54 EST Reading Location ID and State: [address] [place] [address] , Service support , CC: Dr. Sanaz Dunbar DO; Dr. Brad Moody MD [employer] Sawyer: Signed Normal [facility] H AND P Exam - Surgicalon H&P Exam - Surgical [facility] Medical Records Department [address] [place] [address] H P Exam - Surgical 12/02/221951 MR#: [id number] Acct: [id number] Name: DIANA THURSTON Rep #: [id number] : 1945 77 From: Luis Antonio Daly MD PCP: Dr. Brad Moody MD Status:ADM IN Location: [facility] CN140-0 HPI - General General Date of Admission: 12/02/22 [facility] Narrative BOWER KARENA, is a 77 M who presents from his PCP. He says he got sick last Thursday and after a few days went to see his Doctor. He denies fever or chills. He does have RUQ pain. Denies nausea or vomiting. PFSH Medical History BPH (benign prostatic hyperplasia) GERD (gastroesophageal reflux disease) Hepatomegaly High cholesterol History of bladder cancer Hypertension Obesity Tobacco use Home Medications hydrochlorothiazide 12.5 mg tablet 12.5 tab PO DAILY 04/09/22 [History Last Taken 12/02/22] losartan 50 mg tablet 50 mg PO DAILY 04/09/22 [History Last Taken 12/02/22] omeprazole 40 mg capsule,delayed release 40 mg PO DAILY 04/09/22 [History Last Taken 12/02/22] Allergy/AdvReac Type Severity Reaction Status Date / Time No Known Allergies Allergy Verified 12/02/22 16:39 Family History Brother Heart disease Hypertension CAD (coronary artery disease) Myocardial infarction Father Heart disease Hypertension CAD (coronary artery disease) Myocardial infarction Mother Alzheimer disease Surgical History H/O chest tube placement H/O hand surgery History of bladder surgery History of surgery of head History of tonsillectomy and adenoidectomy Social History (Updated 04/09/22 @ 06:44 by Nani Schilling) household members: none housing: house number of children: 1 current occupational status: retired Smoking Status: Current some day smoker tobacco type: cigars how long ago did patient quit smoking: Quit 8 years during, started 18 w/ 1 pk/2.5 day until 10 cigar/d x 3 yrs. alcohol intake: never substance use type: does not use ROS Constitutional Constitutional: Reports anorexia and fatigue; Denies chills or fever(s) Eyes Eyes: Denies blurry vision ENT HEENT: Denies abnormal hearing Cardiovascular Cardiovascular: Denies chest pain Respiratory/Chest Respiratory/Chest: Denies cough or dyspnea Gastrointestinal Gastrointestinal: Reports abdominal pain; Denies constipation, diarrhea, dysphagia, nausea, rectal bleeding or vomiting Genitourinary Genitourinary: Denies change in urinary stream or dysuria Musculoskeletal Musculoskeletal: Denies abnormal gait or difficulty walking Neurologic Neurologic: Denies dizziness Psychiatric Psychiatric: Denies anxiety Endocrine Endocrinology: Denies flushing Hematologic/Lymphatic Hematologic/Lymphatic: Denies easy bleeding Vital Signs Vital Signs Vital Signs: 12/02/22 16:21 12/02/22 17:26 12/02/22 18:15 Temperature 97 F L 97.6 F L 96.8 F L Temperature Source Temporal Oral Temporal Pulse Rate 75 84 69 Respiratory Rate 18 16 18 Respiratory Effort Respiratory Depth Respiratory Pattern Blood Pressure 139/79 H 137/88 H 136/66 H Blood Pressure Mean 99 104 89 Blood Pressure Source Monitor Blood Pressure Position Semi-Fowlers Blood Pressure Location Right Arm Pulse Ox 98 97 96 Oxygen Delivery Method Room Air Room Air Room Air 12/02/22 18:00 Temperature Temperature Source Pulse Rate Respiratory Rate Respiratory Effort Normal Non-Labored Respiratory Depth Normal Respiratory Pattern Normal Blood Pressure Blood Pressure Mean Blood Pressure Source Blood Pressure Position Blood Pressure Location Pulse Ox Oxygen Delivery Method Room Air Weight Weight: 222 lb 6.4 oz Body Mass Index (BMI) 34.8 Physical Exam Const oriented x3 and no apparent distress Resp normal respiratory effort GI soft to palpation Palpation: tender RUQ external exam normal Extremity normal to inspection Results Radiology Impression Gallbladder Ultrasound 12/02/22 16:46 IMPRESSION: Thick-walled gallbladder containing stones with pericholecystic edema suspicious for chronic cholecystitis and superimposed acute cholecystitis. HIDA scan would be useful for further evaluation if clinically warranted Common bile duct is upper normal in size and there is no definitive evidence for intraductal stone Electronically Signed: Phani Salamanca MD at 17:54 EST , Assessment Plan Assessment/Plan (1) Acute cholecystitis: PLAN: Patient has a normal white count but his CT scan shows cholecyst (more content not included)... Normal [facility] - Chemistry and C hemistry - challengeOrdered By: Dr. Moody on 12-02-2022 ALP [Catalytic activity/Vol] 123 U/L 45-117 [facility] Urea nitrogen/Creatinine [Mass ratio] 14.7 mg/mg 10-20 [facility] - Hematology and Cell countsOrdered By: Dr. Moody on 12-02-2022 Erythrocyte distribution width (RBC) [Entitic vol] 46.7 fL 35.1-43.9 [facility] Immature granulocytes/100 WBC (Bld) 1.000 % 0.0-0.9 [facility] Comment on above: IG% - Immature Granu locytes (promyelocytes, myelocytes and metamyelocytes) > 1% indicates that a LEFT SHIFT is Present. Nucleated RBC/100 WBC (Bld) [Ratio] 0 % 0-5 [facility] LipaseOrdered By: Dr. Fransisco hayes 12-02-2022 Lipase [Catalytic activity/Vol] 115 U/L Normal 73-393 [facility] Comment on above: Performed By: #### M 100.3000, M100.4001, #### [facility] [address] [place], [address] MCHC [Mass/volume] by Automa malvin countOrdered By: Dr. Moody on 12-02-2022 MCHC (RBC) [Mass/Vol] 33.0 g/dL Normal 32-36 [facility] Comment on above: Performed By: #### M 100.3000, M100.4001, #### [facility] [address] [place], [address] No Panel InformationOrdered By: Dr. Moody on 12-02-2022 Estimated GFR (MDRD) Amer 70 mL/min >60 [facility] Comment on above: GFR Calc Estimated GFR (MDRD) Non-Af Amer 58 mL/min >60 [facility] Comment on above: Non- GFR Calc Platelets bldOrdered By: Dr. Moody on 12-02-2022 Platelets (Bld) [#/Vol] 282 10*3/uL Normal 150-450 [facility] Comment on above: Performed By: #### M 100.3000, M100.4001, #### [facility] [address] [place], [address] Serum or plasma albumin keny urement (mass/volume)Ordered By: Dr. Moody on 12-02-2022 Albumin [Mass/Vol] 2.7 g/dL Low 3.2-5.0 [facility] Comment on above: Performed By: #### M 100.3000, M100.4000, #### [facility] [address] [place], [address] Serum or plasma albumin/glob ulin mass ratioOrdered By: Dr. Moody on 12-02-2022 Albumin/Globulin [Mass ratio] 0.6 {ratio} Low 0.9-2.4 [facility] Comment on above: Performed By: #### M 100.3000, M100.4000, #### [facility] [address] [place], [address] Serum or plasma calcium keny urement (mass/volume)Ordered By: Dr. Moody on 12-02-2022 Calcium [Mass/Vol] 9.1 mg/dL 8.5-10.1 [facility] Serum or plasma creatinine m easurement (mass/volume)Ordered By: Dr. Moody on 12-02-2022 Creatinine [Mass/Vol] 1.29 mg/dL Normal 0.70-1.30 [facility] Comment on above: The validity of the calculated GFR & GFRAA in patients over 70 years has not been determined. Clinical correlation is essential. Result Comment: The validity of the calculated GFR GFRAA in patients over 70 years has not been determined. Clinical correlation is essential. Performed By: #### M 100.3000, M100.4000, #### [facility] [address] [place], [address] Serum or plasma urea nitroge n measurement (mass/volume)Ordered By: Dr. Moody on 12-02-2022 Urea nitrogen [Mass/Vol] 19 mg/dL High 7-18 [facility] Comment on above: Performed By: #### M 100.3000, M100.4001, #### [facility] [address] [place], [address] Thin prep Papanicolaou smear with manual screeningOrdered By: Dr. Moody on 12-02-2022 Thin prep Papanicolaou smear with manual screening 44 U/L 15-37 [facility] Thin prep Papanicolaou smear with manual screening 7 5-15 [facility] Absolute lymphocyte counton 07-02-2022 Lymphocytes Auto (Unsp spec) [#/Vol] 2.38 10*3/uL 0.83-4.51 [facility] Work Phone: Basophil percentageon 2021 Basophils/100 WBC (Bld) 0.8 % 0-1 [facility] Work Phone: Bilirubin [Mass/Vol] 0.50 mg/dL 0.20-1.00 [facility] Work Phone: Comment on above: For patients on eltr ombopag therapy, use of Dimension Colome TBIL is not recommended. Chloride [Moles/Vol] 104 mmol/L 98-107 [facility] Work Phone: Cholesterol [Mass/Vol] 174 mg/dL <200 [facility] Work Phone: Comment on above: <200 mg/dL Desirable 200-240 mg/dL Borderline >240 mg/dL High Risk Eosinophils/100 WBC (Bld) 3.7 % 0-5 [facility] Work Phone: Glucose [Mass/Vol] 90 mg/dL 74-106 [facility] Work Phone: Neutrophils (Bld) [#/Vol] 3.7 10*3/uL 2.0-7.7 [facility] Work Phone: Neutrophils/100 WBC (Bld) 51.3 % 47-70 [facility] Work Phone: Potassium [Moles/Vol] 3.6 mmol/L 3.5-5.1 [facility] Work Phone: Protein [Mass/Vol] 7.1 g/dL 6.4-8.2 [facility] Work Phone: Sodium [Moles/Vol] 139 mmol/L 136-145 [facility] Work Phone: Testosterone [Mass/Vol] 286.03 ng/dL [facility] Work Phone: [phone] Comment on above: CENTRAL 90% REFERENC E RANGES MALE AGE <50 197.44 - 669.58 ng/dL MALE AGE > or = 50 187.72 - 684.19 ng/dL FEMALE AGE <50 8.38 - 35.01 ng/dL FEMALE AGE > or = 50 <7.00 - 35.92 ng/dL Effective as of 04/23/21 Triglyceride [Mass/Vol] 172 mg/dL <199 [facility] Work Phone: Comment on above: The drugs N-Acetylcy steine and Metamizole may falsely depress this assay.Serum Triglycerides Reference Interval Normal <150 mg/dL Borderline high 150 - 199 mg/dL High 200 - 499 mg/dL Very High > or = 500 mg/dL WBC (Bld) [#/Vol] 7.2 10*3/uL 4.4-11.0 [facility] Work Phone: Blood erythrocytes count (nu mber/volume)on 07-02-2022 RBC (Bld) [#/Vol] 5.50 10*6/uL 4.6-6.2 [facility] Work Phone: Blood hemoglobin measurement (mass/volume)on 07-02-2022 Hemoglobin (Bld) [Mass/Vol] 15.9 g/dL 13.0-16.5 [facility] Work Phone: [phone] Blood lymphocytes/100 leukoc yteson 07-02-2022 Lymphocytes/100 WBC (Bld) 33.0 % 19-41 [facility] [facility] Work Phone: [phone] Blood monocytes/100 leukocyt eson 07-02-2022 Monocytes/100 WBC (Bld) 9.7 % 0-10 [facility] Work Phone: [phone] Blood platelet mean volumeon 07-02-2022 Platelet mean volume (Bld) [Entitic vol] 9.5 fL 6.2-12.0 [facility] Work Phone: [phone] CBC W/Diff, Automatedon 10-0 -2021 Absolute Lymph 2.38 X10 3/uL Normal 0.83-4.51 [facility] Comment on above: Performed By: #### M 100.3000, M100.4001, #### [facility] [address] [place], [address] Absolute Neut 3.7 X10 3/uL Normal 2.0-7.7 [facility] Comment on above: Performed By: #### M 100.3000, M100.4001, #### [facility] [address] [place], [address] Basophils/100 WBC (Bld) 0.8 % Normal 0-1 [facility] Comment on above: Performed By: #### M 100.3000, M100.4001, #### [facility] [address] [place], [address] Eosinophils/100 WBC (Bld) 3.7 % Normal 0-5 [facility] Comment on above: Performed By: #### M 100.3000, M100.4001, #### [facility] [address] [place], [address] Erythrocyte distribution width (RBC) [Ratio] 13.9 % Normal 11.6-14.6 [facility] Comment on above: Performed By: #### M 100.3000, M100.4001, #### [facility] [address] [place], [address] Hematocrit (Bld) [Volume fraction] 49.6 % Normal 40-54 [facility] Comment on above: Performed By: #### M 100.3000, M100.4001, #### [facility] [address] [place], [address] Hemoglobin (Bld) [Mass/Vol] 15.9 g/dL Normal 13.0-16.5 [facility] Comment on above: Performed By: #### M 100.3000, M100.400, #### [facility] [address] [place], [address] IG% 1.500 High 0.0-0.9 [facility] Comment on above: Result Comment: IG% - Immature Granulocytes (promyelocytes, myelocytes and metamyelocytes) > 1% indicates that a LEFT SHIFT is Present. Performed By: #### M 100.3000, .400, #### [facility] [address] [place], [address] Lymphocytes/100 WBC (Bld) 33.0 % Normal 19-41 [facility] Comment on above: Performed By: #### M 100.3000, .4000, #### [facility] [address] [place], [address] MCH (RBC) [Entitic mass] 28.9 pg Normal 27.0-32.0 [facility] Comment on above: Performed By: #### M 100.3000, M100.400, #### [facility] [address] [place], [address] MCHC (RBC) [Mass/Vol] 32.1 g/dL Normal 32-36 [facility] Comment on above: Performed By: #### M 100.3000, M100.4001, #### [facility] [address] [place], [address] MCV (RBC) [Entitic vol] 90.2 fL Normal 80-94 [facility] Comment on above: Performed By: #### M 100.3000, M100.4001, #### [facility] [address] [place], [address] Monocytes/100 WBC (Bld) 9.7 % Normal 0-10 [facility] Comment on above: Performed By: #### M 100.3000, M100.4001, #### [facility] [address] [place], [address] Neutrophils/100 WBC (Bld) 51.3 % Normal 47-70 [facility] Comment on above: Performed By: #### M 100.3000, M100.4001, #### [facility] [address] [place], [address] Nucleated RBC (Bld) [#/Vol] 0 10*3/uL Normal 0-5 [facility] Comment on above: Performed By: #### M 100.3000, M100.400, #### [facility] [address] [place], [address] Platelet mean volume (Bld) [Entitic vol] 9.5 fL Normal 6.2-12.0 [facility] Comment on above: Performed By: #### M 100.3000, M100.400, #### [facility] [address] [place], [address] Platelets (Bld) [#/Vol] 229 10*3/uL Normal 150-450 [facility] Comment on above: Performed By: #### M 100.3000, M100.4001, #### [facility] [address] [place], [address] RBC (Bld) [#/Vol] 5.50 10*6/uL Normal 4.6-6.2 [facility] Comment on above: Performed By: #### M 100.3000, M100.4001, #### [facility] [address] [place], [address] RDW SD 45.9 fl High 35.1-43.9 [facility] Comment on above: Performed By: #### M 100.3000, M100.400, #### [facility] [address] [place], [address] WBC (Bld) [#/Vol] 7.2 10*3/uL Normal 4.4-11.0 [facility] Comment on above: Performed By: #### M 100.3000, M100.4001, #### [facility] [address] [place], [address] Comprehensive Metabolic Prof [facility] 07-02-2022 Albumin [Mass/Vol] 3.4 g/dL Normal 3.2-5.0 [facility] Comment on above: Performed By: #### M 100.3000, M100.4000, #### [facility] [address] [place], [address] Albumin/Globulin [Mass ratio] 0.9 {ratio} Normal 0.9-2.4 [facility] Comment on above: Performed By: #### M 100.3000, M100.4000, #### [facility] [address] [place], [address] ALK P 82 U/L Normal 45-117 [facility] Comment on above: Performed By: #### M 100.3000, M100.400, #### [facility] [address] [place], [address] ALT [Catalytic activity/Vol] 37 U/L Normal 16-61 [facility] Comment on above: Performed By: #### M 100.3000, M100.4001, #### [facility] [address] [place], [address] AST [Catalytic activity/Vol] 19 U/L Normal 15-37 [facility] Comment on above: Performed By: #### M 100.3000, M100.400, #### [facility] [address] [place], [address] Bilirubin [Mass/Vol] 0.50 mg/dL Normal 0.20-1.00 [facility] Comment on above: Result Comment: For patients on eltrombopag therapy, use of Dimension Colome TBIL is not recommended. Performed By: #### M 100.3000, M100.400, #### [facility] [address] [place], [address] BUN/CRE 10.9 RATIO Normal 10-20 [facility] Comment on above: Performed By: #### M 100.3000, M1.4000, #### [facility] [address] [place], [address] CA,Total 9.1 mg/dL Normal 8.5-10.1 [facility] Comment on above: Performed By: #### M 100.3000, M1.4000, #### [facility] [address] [place], [address] Chloride [Moles/Vol] 104 mmol/L Normal 98-107 [facility] Comment on above: Performed By: #### M 100.3000, M1.4000, #### [facility] [address] [place], [address] CO2 [Moles/Vol] 29.0 mmol/L Normal 21.0-32.0 [facility] Comment on above: Performed By: #### M 100.3000, M100.400, #### [facility] [address] [place], [address] Creatinine [Mass/Vol] 1.10 mg/dL Normal 0.70-1.30 [facility] Comment on above: Result Comment: The validity of the calculated GFR GFRAA in patients over 70 years has not been determined. Clinical correlation is essential. Performed By: #### M 100.3000, M100.4001, #### [facility] [address] [place], [address] EST GFR - AA 84 mL/min Normal >60 [facility] Comment on above: Result Comment: Afri can [place]inamese GFR Calc Performed By: #### M 100.3000, M100.400, #### [facility] [address] [place], [address] GAP 6 Normal 5-15 [facility] Comment on above: Performed By: #### M 100.3000, M100.4000, #### [facility] [address] [place], [address] GFR/1.73 sq M.predicted among non-blacks MDRD (S/P/Bld) [Vol rate/Area] 69 mL/min/{1.73_m2} Normal >60 [facility] Comment on above: Result Comment: Non- GFR Calc Performed By: #### M 100.3000, M100.4001, #### [facility] [address] [place], [address] Globulin (S) [Mass/Vol] 3.7 g/dL Normal 2.2-4.2 [facility] Comment on above: Performed By: #### M 100.3000, M100.4001, #### [facility] [address] [place], [address] Glucose [Mass/Vol] 90 mg/dL Normal 74-106 [facility] Comment on above: Performed By: #### M 100.3000, M100.4001, #### [facility] [address] [place], [address] Potassium [Moles/Vol] 3.6 mmol/L Normal 3.5-5.1 [facility] Comment on above: Performed By: #### M 100.3000, M100.4001, #### [facility] [address] [place], [address] Sodium [Moles/Vol] 139 mmol/L Normal 136-145 [facility] Comment on above: Performed By: #### M 100.3000, M100.4001, #### [facility] [address] [place], [address] T PROT 7.1 g/dL Normal 6.4-8.2 [facility] Comment on above: Performed By: #### M 100.3000, M100.4001, #### [facility] [address] [place], [address] Urea nitrogen [Mass/Vol] 12 mg/dL Normal 7-18 [facility] Comment on above: Performed By: #### M 100.3000, M100.4001, #### [facility] [address] [place], [address] Determination of erythrocyte mean corpuscular volume (MCV)on 07-02-2022 MCV (RBC) [Entitic vol] 90.2 fL 80-94 [facility] Work Phone: [phone] Hematocrit Auto (Bld) [Volum e fraction]on 07-02-2022 Hematocrit (Bld) [Volume fraction] 49.6 % 40-54 [facility] Work Phone: [phone] Laboratory - Chemistry and C hemistry - challengeon 07-02-2022 ALP [Catalytic activity/Vol] 82 U/L 45-117 [facility] Work Phone: [phone] ALT [Catalytic activity/Vol] 37 U/L 16-61 [facility] Work Phone: [phone] CO2 [Moles/Vol] 29.0 mmol/L 21.0-32.0 [facility] Work Phone: Globulin (S) [Mass/Vol] 3.7 g/dL 2.2-4.2 [facility] Work Phone: [phone] Urea nitrogen/Creatinine [Mass ratio] 10.9 mg/mg 10-20 [facility] Work Phone: Laboratory - Hematology and Cell countson 07-02-2022 Erythrocyte distribution width (RBC) [Entitic vol] 45.9 fL 35.1-43.9 [facility] Work Phone: Erythrocyte distribution width (RBC) [Ratio] 13.9 % 11.6-14.6 [facility] Work Phone: Immature granulocytes/100 WBC (Bld) 1.500 % 0.0-0.9 [facility] Work Phone: Comment on above: IG% - Immature Granu locytes (promyelocytes, myelocytes and metamyelocytes) > 1% indicates that a LEFT SHIFT is Present. MCH (RBC) [Entitic mass] 28.9 pg 27.0-32.0 [facility] Work Phone: Nucleated RBC/100 WBC (Bld) [Ratio] 0 % 0-5 [facility] Work Phone: Lipid Profileon 07-02-2022 Cholesterol [Mass/Vol] 174 mg/dL Normal 200 [facility] Comment on above: Result Comment: <200 mg/dL Desirable 200-240 mg/dL Borderline >240 mg/dL High Risk Performed By: #### M 100.3000, M100.4001, M1.1999 #### [facility] [address] [place], [place], [address] Cholesterol in HDL [Mass/Vol] 28 mg/dL Low [facility] Comment on above: Result Comment: The drugs N-Acetylcysteine and Metamizole may falsely depress this assay. Reference Range HDL <40 mg/dL Low HDL Cholesterol HDL >or= 60 mg/dL High HDL Cholesterol Performed By: #### M 100.3000, M100.4001, #### [facility] [address] [place], [address] Cholesterol in LDL [Mass/Vol] 112 mg/dL Normal 0-130 [facility] Comment on above: Performed By: #### M 100.3000, M100.4001, #### [facility] [address] [place], [address] Cholesterol in VLDL [Mass/Vol] 34 mg/dL Normal 5-40 [facility] Comment on above: Performed By: #### M 100.3000, M100.4001, #### [facility] [address] [place], [address] Triglyceride [Mass/Vol] 172 mg/dL Normal [facility] Comment on above: Result Comment: The drugs N-Acetylcysteine and Metamizole may falsely depress this assay. Serum Triglycerides Reference Interval Normal <150 mg/dL Borderline high 150 - 199 mg/dL High 200 - 499 mg/dL Very High > or = 500 mg/dL Performed By: #### M 100.3000, M100.4001, #### [facility] [address] [place], [address] MCHC Auto (RBC) [Mass/Vol]on 07-02-2022 MCHC (RBC) [Mass/Vol] 32.1 g/dL 32-36 [facility] Work Phone: No Panel Informationon 07-02 Estimated GFR (MDRD) Amer 84 mL/min >60 [facility] Work Phone: Comment on above: GFR Calc Estimated GFR (MDRD) Non-Af Amer 69 mL/min >60 [facility] Work Phone: Comment on above: Non- GFR Calc Prostate Specific Antigen Screen 1.03 ng/mL 0.00-4.00 [facility] Work Phone: Comment on above: This test was perfor med using the TPSA assay method for the[employer] chemistry system. Values obtained with differentassay methods cannot be used interchangably.When changing PSA assays in the course of monitoring apatient, additional sequential testing should be carriedout to confirm baseline values. Thyroid Stimulating Hormone (TSH) 3.53 uIU/mL 0.358-3.74 [facility] Work Phone: [phone] Vitamin D 25-Hydroxy 28.4 ng/mL [facility] Work Phone: Comment on above: Vitamin D 25(OH) Sta tus Range Deficiency <20 ng/mL (50nmol/L) Insufficiency 20 - 30 ng/mL (50 - 75 nmol/L) Sufficiency 30 - 100 ng/mL (75 - 250 nmol/L) Toxicity >100 ng/mL (>250 nmol/L) PSA,Total - Annual Screenon 07-02-2022 PSA,TOT SCREEN 1.03 ng/mL Normal 0.00-4.00 [facility] Comment on above: Result Comment: This test was performed using the TPSA assay method for the [employer] chemistry system. Values obtained with different assay methods cannot be used interchangably. When changing PSA assays in the course of monitoring a patient, additional sequential testing should be carried out to confirm baseline values. Performed By: #### M 100.2200 #### [facility] [address] [place], [place], [id number] Platelets bldon 07-02-2022 Platelets (Bld) [#/Vol] 229 10*3/uL 150-450 [facility] Work Phone: [phone] Serum or plasma albumin keny urement (mass/volume)on 07-02-2022 Albumin [Mass/Vol] 3.4 g/dL 3.2-5.0 [facility] Work Phone: [phone] Serum or plasma albumin/glob ulin mass ratioon 07-02-2022 Albumin/Globulin [Mass ratio] 0.9 {ratio} 0.9-2.4 [facility] Work Phone: [phone] Serum or plasma calcium keny urement (mass/volume)on 07-02-2022 Calcium [Mass/Vol] 9.1 mg/dL 8.5-10.1 [facility] Work Phone: Serum or plasma cholesterol in HDL measurement (mass/volume)on 07-02-2022 Cholesterol in HDL [Mass/Vol] 28 mg/dL >40 [facility] Work Phone: Comment on above: The drugs N-Acetylcy steine and Metamizole may falsely depress this assay. Reference Range HDL <40 mg/dL Low HDL Cholesterol HDL >or= 60 mg/dL High HDL Cholesterol Serum or plasma cholesterol in VLDL measurement (mass/volume)on 07-02-2022 Cholesterol in VLDL [Mass/Vol] 34 mg/dL 5-40 [facility] Work Phone: Serum or plasma creatinine m easurement (mass/volume)on 07-02-2022 Creatinine [Mass/Vol] 1.10 mg/dL 0.70-1.30 [facility] Work Phone: Comment on above: The validity of the calculated GFR & GFRAA in patients over 70 years has not been determined. Clinical correlation is essential. Serum or plasma low density lipoprotein (LDL) cholesterol measurement (mass/volume)on 07-02-2022 Cholesterol in LDL [Mass/Vol] 112 mg/dL 0-130 [facility] Work Phone: Serum or plasma urea nitroge n measurement (mass/volume)on 07-02-2022 Urea nitrogen [Mass/Vol] 12 mg/dL 7-18 [facility] Work Phone: Testosterone, Serum Totalon 07-02-2022 Testosterone [Mass/Vol] 286.03 ng/dL Normal [facility] Comment on above: Result Comment: CENT RAL 90% REFERENCE RANGES MALE AGE <50 197.44 - 669.58 ng/dL MALE AGE > or = 50 187.72 - 684.19 ng/dL FEMALE AGE <50 8.38 - 35.01 ng/dL FEMALE AGE > or = 50 <7.00 - 35.92 ng/dL Effective as of 04/23/21 Performed By: #### M 100.3000, M100.4001, M100.2000 #### [facility] [address] [place], [address] Thin prep Papanicolaou smear with manual screeningon 07-02-2022 Thin prep Papanicolaou smear with manual screening 19 U/L 15-37 [facility] Work Phone: Thin prep Papanicolaou smear with manual screening 6 5-15 [facility] Work Phone: Thyroid Stim Hormone (TSH)on 07-02-2022 TSH 3.53 uIU/mL Normal 0.358-3.74 [facility] Comment on above: Performed By: #### M 100.3000, M100.4001, #### [facility] [address] [place], [address] Vitamin D,25 Hydroxyon 07-02 Vitamin D 25-OH 28.4 ng/mL Normal [facility] Comment on above: Result Comment: Mehreen min D 25(OH) Status Range Deficiency <20 ng/mL (50nmol/L) Insufficiency 20 - 30 ng/mL (50 - 75 nmol/L) Sufficiency 30 - 100 ng/mL (75 - 250 nmol/L) Toxicity >100 ng/mL (>250 nmol/L) Performed By: #### M 100.3000, M100.4001, #### [facility] [address] [place], [address] Absolute lymphocyte counton 04-09-2022 Lymphocytes Auto (Unsp spec) [#/Vol] 2.60 10*3/uL 0.83-4.51 [facility] Work Phone: Basophil percentageon 2021 Basophils/100 WBC (Bld) 0.8 % 0-1 [facility] Work Phone: Chloride [Moles/Vol] 103 mmol/L 98-107 [facility] Work Phone: Eosinophils/100 WBC (Bld) 4.4 % 0-5 [facility] Work Phone: Glucose [Mass/Vol] 141 mg/dL 74-106 [facility] Work Phone: [phone] Comment on above: Fasting Glucose resu lt greater than or equal to 126 mg/dL suggests DIABETES MELLITUS per A.D.A. criteria. Neutrophils (Bld) [#/Vol] 3.4 10*3/uL 2.0-7.7 [facility] Work Phone: [phone] Neutrophils/100 WBC (Bld) 48.1 % 47-70 [facility] Work Phone: [phone] Potassium [Moles/Vol] 3.5 mmol/L 3.5-5.1 [facility] Work Phone: [phone] Sodium [Moles/Vol] 137 mmol/L 136-145 [facility] Work Phone: [phone] WBC (Bld) [#/Vol] 7.1 10*3/uL 4.4-11.0 [facility] Work Phone: [phone] Blood erythrocytes count (nu mber/volume)on 04-09-2022 RBC (Bld) [#/Vol] 5.05 10*6/uL 4.6-6.2 [facility] Work Phone: [phone] Blood hemoglobin measurement (mass/volume)on 04-09-2022 Hemoglobin (Bld) [Mass/Vol] 14.8 g/dL 13.0-16.5 [facility] Work Phone: [phone] Blood lymphocytes/100 leukoc yteson 04-09-2022 Lymphocytes/100 WBC (Bld) 36.8 % 19-41 [facility] Work Phone: [phone] Blood monocytes/100 leukocyt eson 04-09-2022 Monocytes/100 WBC (Bld) 9.5 % 0-10 [facility] Work Phone: [phone] Blood platelet mean volumeon 04-09-2022 Platelet mean volume (Bld) [Entitic vol] 8.9 fL 6.2-12.0 [facility] Work Phone: [phone] Determination of erythrocyte mean corpuscular volume (MCV)on 04-09-2022 MCV (RBC) [Entitic vol] 90.7 fL 80-94 [facility] Work Phone: Hematocrit Auto (Bld) [Volum e fraction]on 04-09-2022 Hematocrit (Bld) [Volume fraction] 45.8 % 40-54 [facility] Work Phone: Laboratory - Chemistry and C hemistry - challengeon 04-09-2022 CO2 [Moles/Vol] 29.0 mmol/L 21.0-32.0 [facility] Work Phone: Magnesium [Mass/Vol] 1.9 mg/dL 1.6-2.6 [facility] Work Phone: Urea nitrogen/Creatinine [Mass ratio] 9.8 mg/mg 10-20 [facility] Work Phone: Laboratory - Hematology and Cell countson 04-09-2022 Erythrocyte distribution width (RBC) [Entitic vol] 45.5 fL 35.1-43.9 [facility] Work Phone: Erythrocyte distribution width (RBC) [Ratio] 13.7 % 11.6-14.6 [facility] Work Phone: Immature granulocytes/100 WBC (Bld) 0.400 % 0.0-0.9 [facility] Work Phone: Comment on above: IG% - Immature Granu locytes (promyelocytes, myelocytes and metamyelocytes) > 1% indicates that a LEFT SHIFT is Present. MCH (RBC) [Entitic mass] 29.3 pg 27.0-32.0 [facility] Work Phone: Nucleated RBC/100 WBC (Bld) [Ratio] 0 % 0-5 [facility] Work Phone: [phone] MCHC Auto (RBC) [Mass/Vol]on 04-09-2022 MCHC (RBC) [Mass/Vol] 32.3 g/dL 32-36 [facility] Work Phone: No Panel Informationon 04-09 Troponin I High Sensitivity 6 pg/mL 3.0-78.0 [facility] Work Phone: Comment on above: Please Note: New Lazara t Units and Gender Specific Reference Ranges. For more information see Policy Stat Procedure Colome High Sensitivity Troponin (TNIH) and attachments. Estimated Creatinine Clearance Calc 49.67 ml/min [facility] Work Phone: Estimated GFR (MDRD) Amer 75 mL/min >60 [facility] Work Phone: Comment on above: GFR Calc Estimated GFR (MDRD) Non-Af Amer 62 mL/min >60 [facility] Work Phone: Comment on above: Non- GFR Calc Platelets bldon 04-09-2022 Platelets (Bld) [#/Vol] 229 10*3/uL 150-450 [facility] Work Phone: Serum or plasma calcium keny urement (mass/volume)on 04-09-2022 Calcium [Mass/Vol] 8.5 mg/dL 8.5-10.1 [facility] Work Phone: Serum or plasma creatinine m easurement (mass/volume)on 04-09-2022 Creatinine [Mass/Vol] 1.22 mg/dL 0.70-1.30 [facility] Work Phone: Comment on above: The validity of the calculated GFR & GFRAA in patients over 70 years has not been determined. Clinical correlation is essential. Serum or plasma urea nitroge n measurement (mass/volume)on 04-09-2022 Urea nitrogen [Mass/Vol] 12 mg/dL 7-18 [facility] Work Phone: Thin prep Papanicolaou smear with manual screeningon 04-09-2022 Thin prep Papanicolaou smear with manual screening 5 5-15 [facility] Work Phone: Whole blood hemoglobin A1c/t otal hemoglobin ratio (mass fraction)on 04-09-2022 HbA1c (Bld) [Mass fraction] 6.0 % 3.8-5.6 [facility] Work Phone: Comment on above: Normal < 5.7 % Predi abetic 5.7 - 6.4 % Diabetic >or= 6.5 % Please note range changes. Absolute lymphocyte counton 12-26-2021 Lymphocytes Auto (Unsp spec) [#/Vol] 2.82 10*3/uL 0.83-4.51 [facility] Work Phone: Basophil percentageon 2021 Basophils/100 WBC (Bld) 1.0 % 0-1 [facility] Work Phone: Bilirubin [Mass/Vol] 0.50 mg/dL 0.20-1.00 [facility] Work Phone: Comment on above: For patients on eltr ombopag therapy, use of Dimension Colome TBIL is not recommended. Chloride [Moles/Vol] 102 mmol/L 98-107 [facility] Work Phone: Cholesterol [Mass/Vol] 118 mg/dL <200 [facility] Work Phone: Comment on above: <200 mg/dL Desirable 200-240 mg/dL Borderline >240 mg/dL High Risk Eosinophils/100 WBC (Bld) 3.6 % 0-5 [facility] Work Phone: Glucose [Mass/Vol] 108 mg/dL 74-106 [facility] Work Phone: Comment on above: Fasting Glucose resu lt from 100 to 125 mg/dL suggests IMPAIRED HOMEOSTASIS per A.D.A. criteria. Neutrophils (Bld) [#/Vol] 4.2 10*3/uL 2.0-7.7 [facility] Work Phone: Neutrophils/100 WBC (Bld) 50.5 % 47-70 [facility] Work Phone: Potassium [Moles/Vol] 3.6 mmol/L 3.5-5.1 [facility] Work Phone: [phone] Protein [Mass/Vol] 6.7 g/dL 6.4-8.2 [facility] Work Phone: Sodium [Moles/Vol] 136 mmol/L 136-145 [facility] Work Phone: [phone] Testosterone [Mass/Vol] 228.22 ng/dL [facility] Work Phone: [phone] Comment on above: CENTRAL 90% REFERENC E RANGES MALE AGE <50 197.44 - 669.58 ng/dL MALE AGE > or = 50 187.72 - 684.19 ng/dL FEMALE AGE <50 8.38 - 35.01 ng/dL FEMALE AGE > or = 50 <7.00 - 35.92 ng/dL Effective as of 04/23/21 Triglyceride [Mass/Vol] 178 mg/dL <199 [facility] Work Phone: [phone] Comment on above: The drugs N-Acetylcy steine and Metamizole may falsely depress this assay.Serum Triglycerides Reference Interval Normal <150 mg/dL Borderline high 150 - 199 mg/dL High 200 - 499 mg/dL Very High > or = 500 mg/dL WBC (Bld) [#/Vol] 8.2 10*3/uL 4.4-11.0 [facility] Work Phone: [phone] Blood erythrocytes count (nu mber/volume)on 12-26-2021 RBC (Bld) [#/Vol] 5.08 10*6/uL 4.6-6.2 [facility] Work Phone: [phone] Blood hemoglobin measurement (mass/volume)on 12-26-2021 Hemoglobin (Bld) [Mass/Vol] 14.9 g/dL 13.0-16.5 [facility] Work Phone: [phone] Blood lymphocytes/100 leukoc yteson 12-26-2021 Lymphocytes/100 WBC (Bld) 34.3 % 19-41 [facility] Work Phone: [phone] Blood monocytes/100 leukocyt eson 12-26-2021 Monocytes/100 WBC (Bld) 10.1 % 0-10 [facility] Work Phone: [phone] Blood platelet mean volumeon 12-26-2021 Platelet mean volume (Bld) [Entitic vol] 9.3 fL 6.2-12.0 [facility] Work Phone: [phone] Determination of erythrocyte mean corpuscular volume (MCV)on 12-26-2021 MCV (RBC) [Entitic vol] 87.4 fL 80-94 [facility] Work Phone: [phone] Hematocrit Auto (Bld) [Volum e fraction]on 12-26-2021 Hematocrit (Bld) [Volume fraction] 44.4 % 40-54 [facility] Work Phone: [phone] Laboratory - Chemistry and C hemistry - challengeon 12-26-2021 ALP [Catalytic activity/Vol] 84 U/L 45-117 [facility] Work Phone: [phone] ALT [Catalytic activity/Vol] 38 U/L 16-61 [facility] Work Phone: [phone] CO2 [Moles/Vol] 29.0 mmol/L 21.0-32.0 [facility] Work Phone: [phone] Globulin (S) [Mass/Vol] 3.4 g/dL 2.2-4.2 [facility] Work Phone: [phone] Urea nitrogen/Creatinine [Mass ratio] 7.8 mg/mg 10-20 [facility] Work Phone: [phone] Laboratory - Hematology and Cell countson 12-26-2021 Erythrocyte distribution width (RBC) [Entitic vol] 44.0 fL 35.1-43.9 [facility] Work Phone: [phone] Erythrocyte distribution width (RBC) [Ratio] 13.8 % 11.6-14.6 [facility] Work Phone: [phone] Immature granulocytes/100 WBC (Bld) 0.500 % 0.0-0.9 [facility] Work Phone: [phone] Comment on above: IG% - Immature Granu locytes (promyelocytes, myelocytes and metamyelocytes) > 1% indicates that a LEFT SHIFT is Present. MCH (RBC) [Entitic mass] 29.3 pg 27.0-32.0 [facility] Work Phone: [phone] Nucleated RBC/100 WBC (Bld) [Ratio] 0 % 0-5 [facility] Work Phone: MCHC Auto (RBC) [Mass/Vol]on 12-26-2021 MCHC (RBC) [Mass/Vol] 33.6 g/dL 32-36 [facility] Work Phone: No Panel Informationon 12-26 Estimated GFR (MDRD) Amer 79 mL/min >60 [facility] Work Phone: Comment on above: GFR Calc Estimated GFR (MDRD) Non-Af Amer 65 mL/min >60 [facility] Work Phone: Comment on above: Non- GFR Calc Thyroid Stimulating Hormone (TSH) 3.36 uIU/mL 0.358-3.74 [facility] Work Phone: [phone] Vitamin D 25-Hydroxy 28.6 ng/mL [facility] Work Phone: Comment on above: Vitamin D 25(OH) Sta tus Range Deficiency <20 ng/mL (50nmol/L) Insufficiency 20 - 30 ng/mL (50 - 75 nmol/L) Sufficiency 30 - 100 ng/mL (75 - 250 nmol/L) Toxicity >100 ng/mL (>250 nmol/L) Platelets bldon 12-26-2021 Platelets (Bld) [#/Vol] 217 10*3/uL 150-450 [facility] Work Phone: [phone] Serum or plasma albumin keny urement (mass/volume)on 12-26-2021 Albumin [Mass/Vol] 3.3 g/dL 3.2-5.0 [facility] Work Phone: [phone] Serum or plasma albumin/glob ulin mass ratioon 12-26-2021 Albumin/Globulin [Mass ratio] 1.0 {ratio} 0.9-2.4 [facility] Work Phone: [phone] Serum or plasma calcium keny urement (mass/volume)on 12-26-2021 Calcium [Mass/Vol] 8.4 mg/dL 8.5-10.1 [facility] Work Phone: [phone] Serum or plasma cholesterol in HDL measurement (mass/volume)on 12-26-2021 Cholesterol in HDL [Mass/Vol] 27 mg/dL >40 [facility] Work Phone: Comment on above: The drugs N-Acetylcy steine and Metamizole may falsely depress this assay. Reference Range HDL <40 mg/dL Low HDL Cholesterol HDL >or= 60 mg/dL High HDL Cholesterol Serum or plasma cholesterol in VLDL measurement (mass/volume)on 12-26-2021 Cholesterol in VLDL [Mass/Vol] 36 mg/dL 5-40 [facility] Work Phone: [phone] Serum or plasma creatinine m easurement (mass/volume)on 12-26-2021 Creatinine [Mass/Vol] 1.16 mg/dL 0.70-1.30 [facility] Work Phone: Comment on above: The validity of the calculated GFR & GFRAA in patients over 70 years has not been determined. Clinical correlation is essential. Serum or plasma low density lipoprotein (LDL) cholesterol measurement (mass/volume)on 12-26-2021 Cholesterol in LDL [Mass/Vol] 55 mg/dL 0-130 [facility] Work Phone: [phone] Serum or plasma urea nitroge n measurement (mass/volume)on 12-26-2021 Urea nitrogen [Mass/Vol] 9 mg/dL 7-18 [facility] Work Phone: [phone] Thin prep Papanicolaou smear with manual screeningon 12-26-2021 Thin prep Papanicolaou smear with manual screening 23 U/L 15-37 [facility] Work Phone: [phone] Thin prep Papanicolaou smear with manual screening 5 5-15 [facility] Work Phone: [phone] Absolute lymphocyte counton 12-14-2021 Lymphocytes Auto (Unsp spec) [#/Vol] 1.50 10*3/uL 0.83-4.51 [facility] Work Phone: Basophil percentageon 2021 Basophils/100 WBC (Bld) 0.5 % 0-1 [facility] Work Phone: Chloride [Moles/Vol] 102 mmol/L 98-107 [facility] Work Phone: Eosinophils/100 WBC (Bld) 0.8 % 0-5 [facility] Work Phone: Glucose [Mass/Vol] 133 mg/dL 74-106 [facility] Work Phone: Comment on above: Fasting Glucose resu lt greater than or equal to 126 mg/dL suggests DIABETES MELLITUS per A.D.A. criteria. Neutrophils (Bld) [#/Vol] 5.5 10*3/uL 2.0-7.7 [facility] Work Phone: Neutrophils/100 WBC (Bld) 71.1 % 47-70 [facility] Work Phone: Potassium [Moles/Vol] 3.6 mmol/L 3.5-5.1 [facility] Work Phone: Sodium [Moles/Vol] 136 mmol/L 136-145 [facility] Work Phone: WBC (Bld) [#/Vol] 7.8 10*3/uL 4.4-11.0 [facility] Work Phone: Blood erythrocytes count (nu mber/volume)on 12-14-2021 RBC (Bld) [#/Vol] 5.36 10*6/uL 4.6-6.2 [facility] Work Phone: Blood hemoglobin measurement (mass/volume)on 12-14-2021 Hemoglobin (Bld) [Mass/Vol] 15.8 g/dL 13.0-16.5 [facility] Work Phone: Blood lymphocytes/100 leukoc yteson 12-14-2021 Lymphocytes/100 WBC (Bld) 19.2 % 19-41 [facility] Work Phone: Blood monocytes/100 leukocyt eson 12-14-2021 Monocytes/100 WBC (Bld) 7.8 % 0-10 [facility] Work Phone: Blood platelet mean volumeon 12-14-2021 Platelet mean volume (Bld) [Entitic vol] 9.5 fL 6.2-12.0 [facility] Work Phone: [phone] Determination of erythrocyte mean corpuscular volume (MCV)on 12-14-2021 MCV (RBC) [Entitic vol] 87.7 fL 80-94 [facility] Work Phone: [phone] Hematocrit Auto (Bld) [Volum e fraction]on 12-14-2021 Hematocrit (Bld) [Volume fraction] 47.0 % 40-54 [facility] Work Phone: [phone] Laboratory - Chemistry and C hemistry - challengeon 12-14-2021 CO2 [Moles/Vol] 30.0 mmol/L 21.0-32.0 [facility] Work Phone: [phone] Urea nitrogen/Creatinine [Mass ratio] 12.7 mg/mg 10-20 [facility] Work Phone: [phone] Laboratory - Hematology and Cell countson 12-14-2021 Erythrocyte distribution width (RBC) [Entitic vol] 43.8 fL 35.1-43.9 [facility] Work Phone: [phone] Erythrocyte distribution width (RBC) [Ratio] 13.7 % 11.6-14.6 [facility] Work Phone: [phone] Immature granulocytes/100 WBC (Bld) 0.600 % 0.0-0.9 [facility] Work Phone: [phone] Comment on above: IG% - Immature Granu locytes (promyelocytes, myelocytes and metamyelocytes) > 1% indicates that a LEFT SHIFT is Present. MCH (RBC) [Entitic mass] 29.5 pg 27.0-32.0 [facility] Work Phone: [phone] Nucleated RBC/100 WBC (Bld) [Ratio] 0 % 0-5 [facility] Work Phone: [phone] MCHC Auto (RBC) [Mass/Vol]on 12-14-2021 MCHC (RBC) [Mass/Vol] 33.6 g/dL 32-36 [facility] Work Phone: [phone] No Panel Informationon 12-14 Estimated Creatinine Clearance Calc 62.22 ml/min [facility] Work Phone: Estimated GFR (MDRD) Amer 101 mL/min >60 [facility] Work Phone: Comment on above: GFR Calc Estimated GFR (MDRD) Non-Af Amer 83 mL/min >60 [facility] Work Phone: Comment on above: Non- GFR Calc Troponin I High Sensitivity 4 pg/mL 3.0-78.0 [facility] Work Phone: Comment on above: Please Note: New Lazara t Units and Gender Specific Reference Ranges. For more information see Policy Stat Procedure Colome High Sensitivity Troponin (TNIH) and attachments. Platelets bldon 12-14-2021 Platelets (Bld) [#/Vol] 218 10*3/uL 150-450 [facility] Work Phone: Serum or plasma calcium keny urement (mass/volume)on 12-14-2021 Calcium [Mass/Vol] 9.0 mg/dL 8.5-10.1 [facility] Work Phone: Serum or plasma creatinine m easurement (mass/volume)on 12-14-2021 Creatinine [Mass/Vol] 0.94 mg/dL 0.70-1.30 [facility] Work Phone: Comment on above: The validity of the calculated GFR & GFRAA in patients over 70 years has not been determined. Clinical correlation is essential. Serum or plasma urea nitroge n measurement (mass/volume)on 12-14-2021 Urea nitrogen [Mass/Vol] 12 mg/dL 7-18 [facility] Work Phone: Thin prep Papanicolaou smear with manual screeningon 12-14-2021 Thin prep Papanicolaou smear with manual screening 4 5-15 [facility] Work Phone: No Panel Informationon 08-30 Prostate Specific Antigen Total 0.62 ng/mL 0.0-4.0 [facility] Work Phone: Comment on above: This test was perfor med using the TPSA assay method for the[employer] chemistry system. Values obtained with differentassay methods cannot be used interchangably.When changing PSA assays in the course of monitoring apatient, additional sequential testing should be carriedout to confirm baseline values. Basic Panelon 09-03-2019 Creatinine [Mass/Vol] 1.04 mg/dL Normal 0.67-1.17 [facility] Comment on above: Performed By: #### P 8 #### [facility] [address] [place], [place] [address] Anion gap [Moles/Vol] 9 mmol/L Normal 8-16 [facility] Comment on above: Performed By: #### P 8 #### [facility] [address] [place], [place] [address] Calcium [Mass/Vol] 8.7 mg/dL Normal 8.5-10.1 [facility] Comment on above: Performed By: #### P 8 #### [facility] [address] [place], [place] [address] CO2 [Moles/Vol] 31 mmol/L Normal 21-32 [facility] Comment on above: Performed By: #### P 8 #### [facility] [address] [place], [place] [address] Glucose [Mass/Vol] 108 mg/dL High 70-99 [facility] Comment on above: Performed By: #### P 8 #### [facility] [address] [place], [place] [address] Urea nitrogen [Mass/Vol] 16 mg/dL Normal 7-18 [facility] Comment on above: Performed By: #### P 8 #### [facility] [address] [place], [place] [address] Chloride [Moles/Vol] 105 mmol/L Normal 98-107 [facility] Comment on above: Performed By: #### P 8 #### [facility] [address] [place], [place] [address] Potassium [Moles/Vol] 3.7 mmol/L Normal 3.5-5.1 [facility] Comment on above: Performed By: #### P 8 #### [facility] [address] [place], [place] [address] Sodium [Moles/Vol] 141 mmol/L Normal 136-145 [facility] Comment on above: Performed By: #### P 8 #### [facility] [address] [place] [address] [address] CHEST W IVCON PEon 2018 CT CHEST W IVCON PE * * *Final Report* * * DATE OF EXAM: Sep 03 2019 7:38AM [facility] 0540 - CT CHEST W IVCON PE / PROCEDURE REASON: PE suspected, high pretest prob * * * * Physician Interpretation * * * * EXAMINATION: CHEST CT WITH CONTRAST (PULMONARY EMBOLISM PROTOCOL) CLINICAL HISTORY: PE suspected, high pretest prob Technique: Spiral CT acquisition of the chest from the thoracic inlet to the upper abdomen following IV contrast. MQ: CTCP_4 Contrast: 69 mL Omnipaque [address] Dose-Length Product: 299 mGy*cm CT Dose Reduction Employed: Automated exposure control(AEC) and iterative recon Comparison: None RESULT: Limitations: Respiratory motion and poor contrast opacification. Evaluation for thromboembolic disease: - Right heart chambers: No thromboembolic disease. - Main pulmonary arteries: No thromboembolic disease. - Lobar pulmonary arteries: Nondiagnostic - Segmental pulmonary arteries: Nondiagnostic - Subsegmental pulmonary arteries: Nondiagnostic Lines, tubes, and devices: None. Lung parenchyma and pleura: The central airways are patent and void of endobronchial lesion. There are left hilar/peribronchiolar left lung base groundglass opacities and additional medial consolidative opacities which may be consistent with an infectious/inflammatory pneumonia or bronchiolitis. Right atelectasis is present. No consolidation. No suspicious pulmonary nodule. No pleural effusion. Central airways are patent. Thoracic inlet, heart, and mediastinum: No lymphadenopathy in the axillary, mediastinal, or hilar regions. The thoracic aorta and main pulmonary artery are normal in caliber. The cardiac chambers are normal in size. There are scattered coronary artery atherosclerotic calcifications are noted, although the study is not optimized for coronary assessment. No pericardial effusion or thickening. Bones and soft tissues: No destructive bone lesion. Chest wall is unremarkable. Multilevel degenerative changes of the thoracic spine. Upper abdomen: No abnormality in the imaged upper abdomen. IMPRESSION: No CT evidence of central pulmonary embolism. Non-diagnostic evaluation of the remaining pulmonary arterial vasculature. Scattered left hilar/peribronchiolar and left lung base groundglass opacities may be secondary to an infectious/inflammatory pneumonia or bronchiolitis. Follow-up examination is suggested to ensure resolution following treatment. Optical Glass Sawyer: PSCJaymie Transcribe Date/Time: Sep 03 2019 7:47A Dictated by : HEIDI BECERRA MD This examination was interpreted and the report reviewed and electronically signed by: HEIDI BECERRA MD on Sep 03 2019 7:51AM EST Normal [facility] Troponin Ion 09-03-2019 Troponin I.cardiac [Mass/Vol] ng/mL Normal 0.015-0.045 [facility] Comment on above: Performed By: #### E RTRP #### [place] [address] Hemogramon 09-03-2019 Erythrocyte distribution width (RBC) [Ratio] 13.6 % Normal 11.6-14.4 [facility] Comment on above: Performed By: #### C BC1 #### [place] [address] Hematocrit (Bld) [Volume fraction] 45.1 % Normal 40.1-51.0 [facility] Comment on above: Performed By: #### C BC1 #### [place] [address] Hemoglobin (Bld) [Mass/Vol] 14.7 g/dL Normal 13.7-17.5 [facility] Comment on above: Performed By: #### C BC1 #### [place] [address] MCH (RBC) [Entitic mass] 29.6 pg Normal 25.7-32.2 [facility] Comment on above: Performed By: #### C BC1 #### [place] [address] MCHC (RBC) [Mass/Vol] 32.6 % Normal 32.3-36.5 [facility] Comment on above: Performed By: #### C BC1 #### [place] [address] MCV (RBC) [Entitic vol] 90.7 fL Normal 83.2-95.6 [facility] Comment on above: Performed By: #### C BC1 #### [facility] [address] [place], [place] [address] Platelet mean volume (Bld) [Entitic vol] 9.5 fL Normal 8.7-12.0 [facility] Comment on above: Performed By: #### C BC1 #### [facility] [address] [place], [place] [address] Platelets (Bld) [#/Vol] 224 thou/cmm Normal 141-365 [facility] Comment on above: Performed By: #### C BC1 #### [facility] [address] [place], [place] [address] RBC (Bld) [#/Vol] 4.97 mil/cmm Normal 4.63-6.08 [facility] Comment on above: Performed By: #### C BC1 #### [facility] [address] [place], [place] [address] RDW SD 45.5 fl Normal 36.1-45.8 [facility] Comment on above: Performed By: #### C BC1 #### [facility] [address] [place], [place] [address] WBC (Bld) [#/Vol] 12.31 thou/cmm High 4.23-9.07 [facility] Comment on above: Performed By: #### C BC1 #### [facility] [address] [place], [place] [address] Lactic Acidon 09-03-2019 Lactate [Moles/Vol] 1.1 mmol/L Normal 0.5-2.2 [facility] Comment on above: Performed By: #### E DLAG #### [facility] [address] [place], [place] [address] MDRD GFRon 09-03-2019 GFR/1.73 sq M predicted among non-blacks MDRD (S/P/Bld) [Vol rate/Area] mL/min/{1.73_m2} Normal >60mL/min/1. 73m2 [facility] Comment on above: Result Comment: If t he patient is , multiply the result by 1.210. Performed By: #### G FR #### [facility] [address] [place], [place] [address] Troponin Ion 09-03-2019 Troponin I.cardiac [Mass/Vol] ng/mL Normal 0.015-0.045 [facility] Comment on above: Performed By: #### T ROP #### [facility] [address] [place], [place] [address] XR CHEST 2V FRONTAL/LATon XR CHEST 2V FRONTAL/LAT * * *Final Report* * * DATE OF EXAM: Sep 03 2019 6:17AM [facility] [id number] - XR CHEST 2V FRONTAL/LAT / PROCEDURE REASON: Chest pain * * * * Physician Interpretation * * * * EXAMINATION: CHEST RADIOGRAPH (2 VIEW FRONTAL & LATERAL) CLINICAL HISTORY: Chest pain MQ: XC2_5 Comparison: None RESULT: Lines, tubes, and devices: None. Lungs and pleura: Small right pleural effusion. Bibasilar pulmonary opacities. No pneumothorax. Cardiomediastinal silhouette: Normal cardiomediastinal silhouette. Other: . IMPRESSION: Small right pleural effusion. Bibasilar pulmonary opacities are nonspecific and could represent atelectasis or pneumonia. Optical Glass Sawyer: PSCJaymie Transcribe Date/Time: Sep 03 2019 6:20A Dictated by : CATHERINE FAITH MD This examination was interpreted and the report reviewed and electronically signed by: CATHERINE FAITH MD on Sep 03 2019 6:21AM EST Normal [facility] Vital Signs Date Time Vital Sign Value Performing Clinician Facility 06-07-2025 13:16-0400 Body mass index (BMI) [Ratio] 32.99 kg/m2 Ilan Simon MD Work Phone: [facility] 06-07-2025 13:16040 Body temperature 98.1 [degF] Ilan Simon MD Work Phone: [facility] 06-07-2025 13:16040 Body weight 94.12 kg Ilan Simon MD Work Phone: [facility] 06-07-2025 13:160400 Diastolic blood pressure 80 mm[Hg] Ilan Simon MD Work Phone: [facility] 06-07-2025 13:16-0400 Heart rate 77 /min Ilan Simon MD Work Phone: [facility] 06-07-2025 13:16-0400 Respiratory rate 16 /min Ilan Simon MD Work Phone: [facility] 06-07-2025 13:16-0400 SaO2% (BldA) [Mass fraction] 99 % Ilan Simon MD Work Phone: [facility] 06-07-2025 13:16-0400 Systolic blood pressure 129 mm[Hg] Ilan Simon MD Work Phone: [facility] 06-06-2025 10:30-0400 Body mass index (BMI) [Ratio] 32.91 kg/m2 Blake Martínez DO Work Phone: [facility] 06-06-2025 10:30-0400 Body temperature 97.59 [degF] Blake Martínez [employer] Work Phone: [facility] 06-06-2025 10:30-0400 Body weight 93.89 kg Blake Martínez DO Work Phone: [facility] 06-06-2025 10:30-0400 Diastolic blood pressure 88 mm[Hg] Blake Martínez DO Work Phone: [facility] 06-06-2025 10:30-0400 Heart rate 72 /min Blake Martínez DO Work Phone: [facility] 06-06-2025 10:30-0400 SaO2% (BldA) [Mass fraction] 98 % Blake Martínez DO Work Phone: [facility] 06-06-2025 10:30-0400 Systolic blood pressure 132 mm[Hg] Blake Contrerasi DO Work Phone: [facility] 05-04-2025 21:50-0400 SaO2% (BldA) [Mass fraction] 100 % ILAN SIMON [facility] Comment on above: Order Comment: Specimen Type: ARTERIAL B LOOD SPECIMENOrdering Facility: [facility] Address: [address] [place] [address] Performed By: #### A LLBG ####[facility] LABCLIA [id number] [address] [address] [place] 05-04-2025 19:29-0400 SaO2% (BldA) [Mass fraction] 99 % DABRAYDENUNG [facility] Comment on above: Order Comment: Specimen Type: ARTERIAL B LOOD SPECIMENOrdering Facility: [facility] Address: [address] [place] [address] Performed By: #### A LLMG ####[facility] LABIA [id number] [place] [id number] [place] 05-04-2025 18:07-0400 SaO2% (BldA) [Mass fraction] 99 % DABRAYDENUNG [facility] Comment on above: Order Comment: Specimen Type: ARTERIAL B LOOD SPECIMENOrdering Facility: [facility] Address: [address] [place] [address] Performed By: #### A LLMG ####[facility] [id number] [place] [id number] [place] 05-04-2025 13:05-0400 SaO2% (BldA) [Mass fraction] 100 % DABRAYDENUNG [facility] Comment on above: Order Comment: Specimen Type: ARTERIAL B LOOD SPECIMENOrdering Facility: [facility] Address: [address] [place] [address] Performed By: #### A LLMG ####[facility] [id number] [place] [id number] [place] 05-04-2025 12:44-0400 SaO2% (BldA) [Mass fraction] 100 % DABRAYDENUNG [facility] Comment on above: Order Comment: Specimen Type: ARTERIAL B LOOD SPECIMENOrdering Facility: [facility] Address: [address] [place] [address] Performed By: #### A LLMG ####[facility] [id number] OF [facility] 05-04-2025 08:56-0400 SaO2% (BldA) [Mass fraction] 97 % ILAN SIMON [facility] Comment on above: Order Comment: Specimen Type: ARTERIAL B LOOD SPECIMENOrdering Facility: [facility] Address: [address] [place] [address] Performed By: #### A LLMG ####[facility] LABCLIA [id number] [place] [id number] [facility] 04-25-2025 08:30-0400 Body height 168.9 cm Pacc 1 Work Phone: [facility] 04-25-2025 08:30-0400 Body mass index (BMI) [Ratio] 34.21 kg/m2 Pacc 1 Work Phone: [facility] 04-25-2025 08:30-0400 Body temperature 97.11 [degF] Pacc 1 Work Phone: [facility] 04-25-2025 08:30-0400 Body weight 97.61 kg Pacc 1 Work Phone: [facility] 04-25-2025 08:30-0400 Diastolic blood pressure 72 mm[Hg] Pacc 1 Work Phone: [facility] 04-25-2025 08:30-0400 Heart rate 52 /min Pacc 1 Work Phone: [facility] 04-25-2025 08:30-0400 Respiratory rate 16 /min Pacc 1 Work Phone: [facility] 04-25-2025 08:30-0400 SaO2% (BldA) [Mass fraction] 99 % Pacc 1 Work Phone: [facility] 04-25-2025 08:30-0400 Systolic blood pressure 148 mm[Hg] Pacc 1 Work Phone: [facility] 04-11-2025 14:48-0400 Diastolic blood pressure 70 mm[Hg] Matt Olivo MD Work Phone: [facility] 04-11-2025 14:48-0400 Heart rate 76 /min Matt Olivo MD Work Phone: [facility] 04-11-2025 14:48-0400 SaO2% (BldA) [Mass fraction] 98 % Matt Olivo MD Work Phone: [facility] 04-11-2025 14:48-0400 Systolic blood pressure 152 mm[Hg] Matt Olivo MD Work Phone: [facility] 02-27-2025 14:34-0400 Body mass index (BMI) [Ratio] 33.23 kg/m2 Ilan Simon MD Work Phone: [facility] 02-27-2025 14:34-0400 Body temperature 97.7 [degF] Ilan Simon MD Work Phone: [facility] 02-27-2025 14:34-0400 Body weight 94.8 kg Ilan Simon MD Work Phone: [facility] 02-27-2025 14:34-0400 Diastolic blood pressure 92 mm[Hg] Ilan Simon MD Work Phone: [facility] 02-27-2025 14:34-0400 Heart rate 78 /min Ilan Simon MD Work Phone: [facility] 02-27-2025 14:34-0400 Respiratory rate 14 /min Ilan Simon MD Work Phone: [facility] 02-27-2025 14:34-0400 SaO2% (BldA) [Mass fraction] 99 % Ilan Simon MD Work Phone: [facility] 02-27-2025 14:34-0400 Systolic blood pressure 151 mm[Hg] Ilan Simon MD Work Phone: [facility] 02-27-2025 13:16-0400 Body height 168.9 cm Blake Martínez DO Work Phone: [facility] 02-27-2025 13:16-0400 Body mass index (BMI) [Ratio] 33.23 kg/m2 Blake Martínez DO Work Phone: [facility] 02-27-2025 13:16-0400 Body temperature 97.7 [degF] Blake Contrerasi DO Work Phone: [facility] 02-27-2025 13:16-0400 Body weight 94.8 kg Blake Contrerasi DO Work Phone: [facility] 02-27-2025 13:16-0400 Diastolic blood pressure 92 mm[Hg] Blake Contrerasi DO Work Phone: [facility] 02-27-2025 13:16-0400 Heart rate 78 /min Blake Contrerasi DO Work Phone: [facility] 02-27-2025 13:16-0400 SaO2% (BldA) [Mass fraction] 99 % Blake Contrerasi DO Work Phone: [facility] 02-27-2025 13:16-0400 Systolic blood pressure 151 mm[Hg] Blake Contrerasi DO Work Phone: [facility] 02-07-2025 14:37-0400 Body mass index (BMI) [Ratio] 33.67 kg/m2 Cortney Desouza MD Work Phone: [facility] 02-07-2025 14:37-0400 Body weight 94.62 kg Cortney Desouza MD Work Phone: [facility] 02-07-2025 14:37-0400 Diastolic blood pressure 74 mm[Hg] Cortney Daniel Work Phone: [facility] 02-07-2025 14:37-0400 Heart rate 76 /min Cortney Desouza MD Work Phone: [facility] 02-07-2025 14:37-0400 SaO2% (BldA) [Mass fraction] 99 % Cortney Desouza MD Work Phone: [facility] 02-07-2025 14:37-0400 Systolic blood pressure 113 mm[Hg] Cortney Desouza MD Work Phone: [facility] 01-18-2025 11:12-0400 Body height 167.6 cm Cortney Desouza MD Work Phone: [facility] 01-18-2025 11:12-0400 Body mass index (BMI) [Ratio] 34.86 kg/m2 Cortney Desouza MD Work Phone: [facility] 01-18-2025 11:12-0400 Body weight 97.98 kg Cortney Desouza MD Work Phone: [facility] 01-18-2025 11:12-0400 Diastolic blood pressure 80 mm[Hg] Cortney Daniel Work Phone: [facility] 01-18-2025 11:12-0400 Heart rate 60 /min Cortney Desouza MD Work Phone: [facility] 01-18-2025 11:12-0400 Respiratory rate 16 /min Cortney Desouza MD Work Phone: [facility] 01-18-2025 11:12-0400 Systolic blood pressure 132 mm[Hg] Cortney Desouza MD Work Phone: [facility] 05-20-2024 09:39-0400 Body height 167.6 cm Rufino Givens DO Work Phone: [facility] 05-20-2024 09:39-0400 Body mass index (BMI) [Ratio] 34.39 kg/m2 Rufino Givens DO Work Phone: [facility] 05-20-2024 09:39-0400 Body temperature 97 [degF] Rufino Givens DO Work Phone: [facility] 05-20-2024 09:39-0400 Body weight 96.65 kg Rufino Givens DO Work Phone: [facility] 05-20-2024 09:39-0400 Diastolic blood pressure 74 mm[Hg] Rufino Givens DO Work Phone: [facility] 05-20-2024 09:39-0400 Heart rate 68 /min Rufino Givens DO Work Phone: [facility] 05-20-2024 09:39-0400 Respiratory rate 18 /min Rufino Givens DO Work Phone: [facility] 05-20-2024 09:39-0400 SaO2% (BldA) [Mass fraction] 96 % Rufino Givens DO Work Phone: [facility] 05-20-2024 09:39-0400 Systolic blood pressure 135 mm[Hg] Avtarannalee Bautista Work Phone: [facility] 05-12-2024 13:46-0400 Body height 167.6 cm Araceli Isidro MD Work Phone: [facility] 05-12-2024 13:46-0400 Body mass index (BMI) [Ratio] 34.16 kg/m2 Araceli Isidro MD Work Phone: [facility] 05-12-2024 13:46-0400 Body weight 96 kg Araceli Isidro MD Work Phone: [facility] 05-12-2024 13:46-0400 Diastolic blood pressure 66 mm[Hg] Araceli sullivan MD Work Phone: [facility] 05-12-2024 13:46-0400 Heart rate 89 /min Araceli Isidro MD Work Phone: [facility] 05-12-2024 13:46-0400 SaO2% (BldA) [Mass fraction] 96 % Araceli Isidro MD Work Phone: [facility] 05-12-2024 13:46-0400 Systolic blood pressure 108 mm[Hg] Araceli hayes MD Work Phone: [facility] 05-10-2024 12:56-0400 Body height 167.6 cm Mirna Clancy APRN.CNP Work Phone: [facility] 05-10-2024 12:56-0400 Body mass index (BMI) [Ratio] 34.38 kg/m2 Mirna Aston SURGICAL SERVICES COORDINATOR.RECHARGER Work Phone: [facility] 05-10-2024 12:56-0400 Body weight 96.62 kg Mirna Grosster SURGICAL SERVICES COORDINATOR.RECHARGER Work Phone: [facility] 05-10-2024 12:56-0400 Diastolic blood pressure 84 mm[Hg] Mirna Aston SURGICAL SERVICES COORDINATOR.RECHARGER Work Phone: [facility] 05-10-2024 12:56-0400 Heart rate 101 /min Mirna Grosster SURGICAL SERVICES COORDINATOR.RECHARGER Work Phone: [facility] 05-10-2024 12:56-0400 SaO2% (BldA) [Mass fraction] 97 % Mirna Grosster SURGICAL SERVICES COORDINATOR.RECHARGER Work Phone: [facility] 05-10-2024 12:56-0400 Systolic blood pressure 135 mm[Hg] Mirna Grosster SURGICAL SERVICES COORDINATOR.RECHARGER Work Phone: [facility] 03-21-2024 13:16-0400 Blood Pressure Location GRAYSON ARNETT DO [facility] 03-21-2024 13:16-0400 Blood Pressure Method GRAYSON FLOREST DO [facility] 03-21-2024 13:16-0400 Diastolic Blood Pressure Non-Invasive 76 mm[Hg] GRAYSON FLOREST [facility] 03-21-2024 13:16-0400 Heart rate 71 /min GRAYSON FLOREST DO [facility] 03-21-2024 13:16-0400 Respiratory rate 18 /min GRAYSON FLOREST DO [facility] 03-21-2024 13:16-0400 Systolic Blood Pressure Non-Invasive 152 mm[Hg] GRAYSON FLOREST DO [facility] 03-21-2024 11:13-0400 Blood Pressure Location GRAYSON FROMMELT DO [facility] 03-21-2024 11:13-0400 Blood Pressure Method GRAYSON FROMMELT DO [facility] 03-21-2024 11:13-0400 Diastolic Blood Pressure Non-Invasive 69 mm[Hg] GRAYSON FROMMELT DO [facility] 03-21-2024 11:13-0400 Heart rate 78 /min GRAYSON FROMMELT DO [facility] 03-21-2024 11:13-0400 Respiratory rate 18 /min GRAYSON FROMMELT DO [facility] 03-21-2024 11:13-0400 Systolic Blood Pressure Non-Invasive 147 mm[Hg] GRAYSON FROMMELT DO [facility] 03-21-2024 10:09-0400 Blood Pressure Location GRAYSON FROMMELT DO [facility] 03-21-2024 10:09-0400 Blood Pressure Method GRAYSON FROMMELT DO [facility] 03-21-2024 10:09-0400 Body temperature 98.06 [degF] GRAYSON FROMMELT DO [facility] 03-21-2024 10:09-0400 Diastolic Blood Pressure Non-Invasive 83 mm[Hg] GRAYSON FROMMELT DO [facility] 03-21-2024 10:09-0400 Heart rate 89 /min GRAYSON FROMMELT DO [facility] 03-21-2024 10:09-0400 Respiratory rate 18 /min GRAYSON FROMMELT DO [facility] 03-21-2024 10:09-0400 Systolic Blood Pressure Non-Invasive 168 mm[Hg] GRAYSON ARNETT [facility] 11-26-2023 23:47-0500 Blood Pressure Cuff Size KRYSTEN Daniel [facility] 11-26-2023 23:47-0500 Blood Pressure Location KRYSTEN CHESTER MD [facility] 11-26-2023 23:47-0500 Blood Pressure Method KRYSTEN CHESTER MD [facility] 11-26-2023 23:47-0500 Diastolic Blood Pressure Non-Invasive 82 mm[Hg] KRYSTEN CHESTER MD [facility] 11-26-2023 23:47-0500 Heart rate 62 /min KRYSTEN CHESTER MD [facility] 11-26-2023 23:47-0500 Respiratory rate 18 /min KRYSTEN CHESTER MD [facility] 11-26-2023 23:47-0500 Systolic Blood Pressure Non-Invasive 164 mm[Hg] KRYSTEN CHESTER MD [facility] 11-26-2023 20:45-0500 Blood Pressure Cuff Size KRYSTEN Daniel [facility] 11-26-2023 20:45-0500 Blood Pressure Location KRYSTEN CHESTER MD [facility] 11-26-2023 20:45-0500 Blood Pressure Method KRYSTEN CHESTER MD [facility] 11-26-2023 20:45-0500 Body height 170.2 cm KRYSTEN CHESTER MD [facility] 11-26-2023 20:45-0500 Body temperature 96.8 [degF] KRYSTEN CHESTER MD [facility] 11-26-2023 20:45-0500 Body weight 104.5 kg KRYSTEN CHESTER MD [facility] 11-26-2023 20:45-0500 Diastolic Blood Pressure Non-Invasive 78 mm[Hg] KRYSTEN CHESTER MD [facility] 11-26-2023 20:45-0500 Heart rate 76 /min KRYSTEN CHESTER MD [facility] 11-26-2023 20:45-0500 Reason For Taking VItal Signs KRYSTEN CHESTER MD [facility] 11-26-2023 20:45-0500 Respiratory rate 20 /min KRYSTEN CHESTER MD [facility] 11-26-2023 20:45-0500 Systolic Blood Pressure Non-Invasive 183 mm[Hg] KRYSTEN CHESTER MD [facility] 01-15-2023 11:50-0400 Diastolic blood pressure 61 mm[Hg] Dr. Brad Moody Work Phone: [facility] 01-15-2023 11:50-0400 Heart rate 73 /min Dr. Brad Moody Work Phone: [facility] 01-15-2023 11:50-0400 Respiratory rate 22 /min Dr. Brad Moody Work Phone: [facility] 01-15-2023 11:50-0400 SaO2% (BldA) [Mass fraction] 96 % Dr. Brad Moody Work Phone: [facility] 01-15-2023 11:50-0400 Systolic blood pressure 129 mm[Hg] Dr. Brad Moody Work Phone: [facility] 01-15-2023 10:12-0400 Inhaled oxygen flow rate 2 L/min Dr. Brad Moody Work Phone: [facility] 01-15-2023 09:42-0400 Body height 170.[address] Brad Moody Work Phone: [facility] 01-15-2023 09:42-0400 Body mass index (BMI) [Ratio] 32.5 kg/m2 Dr. Brad Moody Work Phone: [facility] 01-15-2023 09:42-0400 Body temperature 97.4 [degF] Dr. Brad Moody Work Phone: [facility] 01-15-2023 09:42-0400 Body weight 94.[address] Brad Moody Work Phone: [facility] 12-26-2022 13:53-0400 Body temperature 98.3 [degF] Dr. Brad Moody Work Phone: [facility] 12-26-2022 13:53-0400 Diastolic blood pressure 61 mm[Hg] Dr. Brad Moody Work Phone: [facility] 12-26-2022 13:53-0400 Heart rate 85 /min Dr. Brad Moody Work Phone: [facility] 12-26-2022 13:53-0400 Respiratory rate 18 /min Dr. Brad Moody Work Phone: [facility] 12-26-2022 13:53-0400 SaO2% (BldA) [Mass fraction] 95 % Dr. Brad Moody Work Phone: [facility] 12-26-2022 13:53-0400 Systolic blood pressure 105 mm[Hg] Dr. Brad Moody Work Phone: [facility] 12-26-2022 03:44-0400 Inhaled oxygen flow rate 2 L/min Dr. Brad Moody Work Phone: [facility] 12-25-2022 16:56-0400 Body height 170.[address] Brad Moody Work Phone: [facility] 12-25-2022 16:56-0400 Body mass index (BMI) [Ratio] 35.1 kg/m2 Dr. Brad Moody Work Phone: [facility] 12-25-2022 16:56-0400 Body weight 101.[address] Brad Moody Work Phone: [facility] 12-25-2022 16:00-0400 Inhaled oxygen concentration 40 % Dr. Brad Moody Work Phone: 3(840)[phone] [place] [address] 12-04-2022 08:22-0500 Body temperature 98 [degF] Dr. Brad Moody Work Phone: 6(202)[phone] [address] 12-04-2022 08:22-0500 Diastolic blood pressure 82 mm[Hg] Dr. Brad Moody Work Phone: 3(746)[phone] [place] [address] 12-04-2022 08:22-0500 Heart rate 83 /min Dr. Brad Moody Work Phone: 2(888)[phone] [place] [address] 12-04-2022 08:22-0500 Respiratory rate 18 /min Dr. Brad Moody Work Phone: [facility] 12-04-2022 08:22-0500 SaO2% (BldA) [Mass fraction] 96 % Dr. Brad Moody Work Phone: [facility] 12-04-2022 08:22-0500 Systolic blood pressure 138 mm[Hg] Dr. Brad Moody Work Phone: [facility] 12-03-2022 14:17-0500 Inhaled oxygen flow rate 2 L/min Dr. Brad Moody Work Phone: [facility] 12-02-2022 18:18-0500 Body height 170.[address] Brad Moody Work Phone: [facility] 12-02-2022 18:18-0500 Body mass index (BMI) [Ratio] 34.8 kg/m2 Dr. Brad Moody Work Phone: [facility] 12-02-2022 18:18-0500 Body weight 100.[address] Brad Moody Work Phone: [facility] 12-02-2022 17:26-0500 Body temperature 97.6 [degF] [facility] 12-02-2022 17:26-0500 Diastolic blood pressure 88 mm[Hg] [facility] 12-02-2022 17:26-0500 Heart rate 84 /min [facility] 12-02-2022 17:26-0500 Respiratory rate 16 /min [facility] 12-02-2022 17:26-0500 SaO2% (BldA) [Mass fraction] 97 % [facility] 12-02-2022 17:26-0500 Systolic blood pressure 137 mm[Hg] [facility] 12-02-2022 16:21-0500 Body height 170.18 cm [facility] 12-02-2022 16:21-0500 Body mass index (BMI) [Ratio] 35 kg/m2 [facility] 12-02-2022 16:21-0500 Body weight 101.6 kg [facility] 04-09-2022 12:30-0400 Body temperature 97.7 [degF] Dr. Brad Moody Work Phone: [facility] Work Phone: 04-09-2022 12:30-0400 Diastolic blood pressure 91 mm[Hg] Dr. Brad Moody Work Phone: [facility] Work Phone: 04-09-2022 12:30-0400 Heart rate 64 /min Dr. Brad Moody Work Phone: [facility] Work Phone: 04-09-2022 12:30-0400 Respiratory rate 16 /min Dr. Brad Moody Work Phone: [facility] Work Phone: 04-09-2022 12:30-0400 SaO2% (BldA) [Mass fraction] 100 % Dr. Brad Moody Work Phone: [facility] Work Phone: 04-09-2022 12:30-0400 Systolic blood pressure 142 mm[Hg] Dr. Brad Moody Work Phone: [facility] Work Phone: 04-09-2022 06:34-0400 Body height 170.[address] Brad Moody Work Phone: [facility] Work Phone: 04-09-2022 06:34-0400 Body mass index (BMI) [Ratio] 35.7 kg/m2 Dr. Brad Moody Work Phone: [facility] Work Phone: 04-09-2022 06:34-0400 Body weight 103.[address] Brad Moody Work Phone: [facility] Work Phone: 12-14-2021 21:42-0400 Diastolic blood pressure 90 mm[Hg] [facility] Work Phone: 12-14-2021 21:42-0400 Heart rate 67 /min [facility] Work Phone: 12-14-2021 21:42-0400 Respiratory rate 16 /min [facility] Work Phone: 12-14-2021 21:42-0400 SaO2% (BldA) [Mass fraction] 96 % [facility] Work Phone: 12-14-2021 21:42-0400 Systolic blood pressure 175 mm[Hg] [facility] Work Phone: 12-14-2021 19:15-0400 Body height 167.64 cm [facility] Work Phone: 12-14-2021 19:15-0400 Body mass index (BMI) [Ratio] 37.8 kg/m2 [facility] Work Phone: 12-14-2021 19:15-0400 Body temperature 97 [degF] [facility] Work Phone: 12-14-2021 19:15-0400 Body weight 106.4 kg [facility] Work Phone: 09-03-2019 12:20-0500 Body mass index (BMI) [Ratio] [facility] Comment on above: Performed By: #### C_RES #### [address] [address] Encounters Encounter Date Encounter Type Care Provider Facility Start: 08-06-2025 Evaluation and management of inpatient PRICE KEY Facility:[facility] Start: 08-04-2025 End: 08-04-2025 ambulatory PRICE KEY Facility:[facility] Start: 08-03-2025 End: 08-03-2025 ambulatory ILAN SIMON Facility:[facility] Start: 08-02-2025 End: 08-02-2025 ambulatory LESLEYUNG ALFRED Facility:[facility] Start: 08-01-2025 End: 08-01-2025 ambulatory JOSÉ MIGUEL LEDBETTER Facility:[facility] Start: 08-01-2025 End: 08-01-2025 ambulatory DABRAYDENUNG ALFRED Facility:[facility] Start: 07-28-2025 End: 07-28-2025 ambulatory DABRAYDENUNG ALFRED Facility:[facility] Start: 07-27-2025 End: 07-27-2025 ambulatory DABRAYDENUNG ALFRED Facility:[facility] Start: 07-26-2025 End: 07-26-2025 ambulatory DABRAYDENUNG ALFRED Facility:[facility] Start: 07-25-2025 End: 07-25-2025 ambulatory BLAKE MARTÍNEZ Facility:[facility] Start: 07-21-2025 End: 07-21-2025 ambulatory PRICE KEY Facility:[facility] Start: 07-20-2025 End: 07-20-2025 ambulatory DAESUNG ALFRED Facility:[facility] Start: 07-19-2025 End: 07-19-2025 ambulatory DAESUNG ALFRED Facility:[facility] Start: 07-18-2025 End: 07-18-2025 ambulatory DAESUNG ALFRED Facility:[facility] Start: 07-17-2025 End: 07-17-2025 ambulatory LESLEYUNG ALFRED Facility:[facility] Start: 07-17-2025 End: 07-17-2025 ambulatory PRICE KEY Facility:[facility] Start: 07-13-2025 End: 07-13-2025 ambulatory DABRAYDENUNG ALFRED Facility:[facility] Start: 07-12-2025 End: 07-12-2025 ambulatory DABRAYDENUNG ALFRED Facility:[facility] Start: 07-11-2025 End: 07-11-2025 ambulatory LESLEYUNG ALFRED Facility:[facility] Start: 07-10-2025 End: 07-10-2025 ambulatory BLAKE MARTÍNEZ Facility:[facility] Start: 07-07-2025 End: 07-07-2025 ambulatory PRICE KEY Facility:[facility] Start: 07-05-2025 End: 07-05-2025 ambulatory LESLEYUNG ALFRED Facility:[facility] Start: 07-04-2025 End: 07-04-2025 ambulatory LESLEYUNG ALFRED Facility:[facility] Start: 07-03-2025 End: 07-03-2025 ambulatory LESLEYUNG ALFRED Facility:[facility] Start: 07-03-2025 End: 07-03-2025 ambulatory PRICE KEY Facility:[facility] Start: 06-28-2025 End: 06-28-2025 ambulatory ELIEZER CHURCH Facility:[facility] Start: 06-23-2025 End: 06-23-2025 ambulatory PRICE KEY Facility:[facility] Start: 06-21-2025 End: 06-21-2025 ambulatory JOSÉ MIGUEL LEDBETTER Facility:[facility] Start: 06-20-2025 End: 06-20-2025 ambulatory DABRAYDENUNG ALFRED Facility:[facility] Start: 06-07-2025 End: 06-07-2025 Patient encounter procedure Ilan Simon MD Work Phone: Radiation Oncology Comment on above: 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); 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); Primary cancer of parotid gland (HCC) Start: 06-07-2025 End: 06-07-2025 ambulatory LESLEYUNG ALFRED Facility:[facility] Start: 06-06-2025 End: 06-06-2025 Telephone encounter Imani Leon RN Work Phone: Hematology/Oncology Comment on above: Care Coordination (I ntroduction) Start: 06-06-2025 End: 06-06-2025 Patient encounter procedure Blake Martínez DO Work Phone: Hematology/Oncology Start: 06-06-2025 End: 06-06-2025 ambulatory Blake Ralph Mauricio VELEZ Work Phone: Hematology/Oncology Comment on above: 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); 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); Primary cancer of parotid gland (HCC) Start: 06-02-2025 End: 06-02-2025 Unlisted evaluation and management service Eliezer Church MD Work Phone: Facial Plastics/Reconstruction Comment on above: Encounter for postop erative care (Primary Dx); Primary cancer of parotid gland (HCC) Start: 06-02-2025 End: 06-02-2025 ambulatory ELIEZER CHURCH Facility:[facility] Start: 05-25-2025 End: 05-25-2025 Postop follow up visit related to original px Matt Olivo MD Work Phone: Otolarynogology Comment on above: Primary cancer of pa rotid gland (HCC) (Primary Dx); 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); Cancer of base of tongue (HCC) Start: 05-25-2025 End: 05-25-2025 ambulatory MATT OLIVO Facility:[facility] Start: 05-22-2025 End: 05-22-2025 Follow-up encounter Mi Ayala APRN.RECHARGER Work Phone: [facility] [place] Start: 05-20-2025 ambulatory RUFINO Byrd :[facility] Start: 05-20-2025 End: 05-20-2025 Subsequent hospital visit by physician [facility] Radiology Comment on above: Lung nodules [R91.8] Start: 05-19-2025 End: 05-19-2025 Telephone encounter Eliezer Church MD Work Phone: [facility] [place] Start: 05-19-2025 End: 05-19-2025 Postop follow up visit related to original px Harpreet Johnson MD Work Phone: Otolaryngology Comment on above: 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); Cancer of base of tongue (HCC); Personal history of tobacco use; Tympanic membrane perforation, left; Hearing loss, unspecified hearing loss type, unspecified laterality Start: 04-27-2025 End: 04-27-2025 ambulatory [facility] Facility[facility] Start: 04-25-2025 End: 04-25-2025 [facility] Start: 04-25-2025 Encounter for other preprocedural examination ILAN SIMON [facility] Start: 04-25-2025 End: 04-25-2025 Subsequent hospital visit by physician Carmen [facility] Ratna Mob Work Phone: Radiology Comment on above: Pre-operative examin ation [Z01.818] Start: 04-25-2025 End: 04-25-2025 Admission to establishment [facility] 1 Work Phone: Pre Anesthesia Start: 04-25-2025 End: 04-25-2025 Anesthesia consultation [facility] 1 Work Phone: Pre Anesthesia Comment on above: Pre-operative examin ation (Primary Dx); Cancer of parotid gland (HCC); Personal history of tobacco use; Chronic cough; Gastroesophageal reflux disease, unspecified whether esophagitis present; Essential hypertension; Type 2 diabetes mellitus with hyperlipidemia (HCC); Elevated LFTs; Common bile duct dilation; Duodenal diverticulum; Myelolipoma of left adrenal gland; History of skin cancer; Benign prostatic hyperplasia with nocturia; Obesity, Class I, BMI 30-34.9; Primary cancer of parotid gland (HCC); Pericardial effusion (HCC) Start: 04-25-2025 End: 04-25-2025 Preprocedural examination done [facility] 1 Work Phone: [facility] Start: 04-25-2025 End: 04-25-2025 ambulatory MATT OLIVO Facility:[facility] Start: 04-18-2025 End: 04-22-2025 ambulatory PRICE KEY DO Facility:[facility] Start: 04-18-2025 End: 04-22-2025 Encounter for general adult medical examination without abnormal findings PRICE KEY DO Facility:[facility] Start: 04-18-2025 End: 04-22-2025 Outreach Lab PRICE KEY DO [facility] Start: 04-14-2025 End: 04-14-2025 Telephone encounter Matt Olivo MD Work Phone: [facility] [place] Start: 04-11-2025 End: 04-11-2025 Office consultation new/estab patient 60 min Matt Olivo MD Work Phone: Otolaryngology Comment on above: Cancer of base of to ngue (HCC); 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); Primary cancer of parotid gland (HCC); History of skin cancer; Personal history of tobacco use Start: 04-11-2025 End: 04-11-2025 ambulatory MATT OLIVO Facility:[facility] Start: 03-12-2025 End: 03-13-2025 Emergency department patient visit DR JULIUS GODINEZ DO [facility] Start: 02-27-2025 End: 02-27-2025 Telephone encounter Gabbi Stock RN Hematology/Oncology Comment on above: Technical Internship - O ther (Introduction ) Start: 02-27-2025 End: 02-27-2025 Patient encounter procedure Blake Martínez DO Work Phone: Hematology/Oncology Comment on above: Cancer of base of to ngue (HCC); 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); Primary cancer of parotid gland (HCC) Start: 02-27-2025 End: 02-27-2025 ambulatory Blake Martínez DO Work Phone: Hematology/Oncology Comment on above: 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); 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); Primary cancer of parotid gland (HCC) Start: 02-24-2025 End: 02-24-2025 ambulatory PRICE KEY DO Facility:[facility] Start: 02-24-2025 End: 02-24-2025 Patient encounter procedure PRICE KEY DO [facility] Start: 02-14-2025 ambulatory CORTNEY DESOUZA [facility] Start: 02-10-2025 End: 02-13-2025 Telephone encounter Cortney Desouza MD Work Phone: [facility] Ear, Nose, and Throat (ENT) Comment on above: Results (LN/parotid FNA results) Start: 02-07-2025 End: 02-07-2025 Patient encounter procedure Cortney Desouza MD Work Phone: [facility] Ear, Nose, and Throat (ENT) Comment on above: Cancer of base of to ngue (HCC); 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); Mass of left parotid gland Start: 02-07-2025 End: 02-07-2025 ambulatory PRICE KEY [facility] Start: 02-02-2025 End: 02-02-2025 ambulatory CORTNEY DESOUZA Facility:[facility] Start: 02-02-2025 End: 02-02-2025 Subsequent hospital visit by physician [facility] Radiology Comment on above: Mass of left parotid gland [K11.8] Start: 01-31-2025 ambulatory PRICE KEY DO Faci lity[facility] Start: 01-18-2025 End: 01-18-2025 Patient encounter procedure Cortney eDsouza MD Work Phone: [facility] Ear, Nose, and Throat (ENT) Comment on above: Mass of left parotid gland; Otorrhea, left; Tympanic membrane perforation, left; Screening for nephropathy Start: 01-18-2025 End: 01-18-2025 ambulatory CORTNEY DESOUZA [facility] Start: 10-12-2024 End: 10-16-2024 ambulatory PRICE KEY DO [facility] Start: 10-12-2024 End: 10-16-2024 Outreach Lab PRICE KEY DO [facility] Start: 08-03-2024 End: 08-03-2024 ambulatory PRICE KEY DO Facility[facility] Start: 08-03-2024 End: 08-03-2024 Patient encounter procedure PRICE KEY DO [facility] Start: 08-03-2024 End: 08-03-2024 Well adult monitoring check done PRICE KEY DO [facility] Start: 07-07-2024 End: 07-08-2024 Telephone encounter To Be Assigned [facility] Otolaryngology (ENT) Comment on above: ENT appointment Start: 06-03-2024 End: 06-03-2024 Telephone encounter Aisha Barber SURGICAL SERVICES COORDINATOR.RECHARGER Work Phone: Cardiology Comment on above: Appointment Start: 05-20-2024 End: 05-20-2024 Transitional care manage srvc 14 day discharge Rufino Givens DO Work Phone: Family Medicine [place] Comment on above: Lung nodule (Primary Dx); Lung nodules; Hemoptysis Start: 05-12-2024 End: 05-12-2024 Patient encounter procedure Araceli Isidro MD Work Phone: Cardiology Comment on above: Pericardial effusion (noninflammatory) (Primary Dx); Epigastric pain Start: 05-11-2024 Telephone encounter Mirna rothman SURGICAL SERVICES COORDINATOR.RECHARGER Work Phone: Family Medicine Comment on above: Results Start: 05-10-2024 End: 05-10-2024 Patient encounter procedure Mirna Clancy SURGICAL SERVICES COORDINATOR.RECHARGER Work Phone: Family Medicine Comment on above: Elevated bilirubin ( Primary Dx); Elevated LFTs Start: 04-29-2024 End: 04-29-2024 ambulatory JENIFER PARRA Facility:[facility] Start: 04-27-2024 Evaluation and management of inpatient [facility] Facility:[facility] Start: 04-27-2024 Telephone encounter Leslie farmer MD Work Phone: [facility] Provider Adult Comment on above: [facility] Start: 03-21-2024 End: 03-21-2024 Emergency department patient visit GRAYSON JOSEMEAGHAN DO [facility] Start: 03-02-2024 End: 03-02-2024 ambulatory PRICE KEY DO Facility:[facility] Start: 03-02-2024 End: 03-02-2024 Patient encounter procedure PRICE KEY DO [facility] Start: 02-26-2024 End: 03-01-2024 ambulatory PRICE KEY DO Facility:[facility] Start: 02-26-2024 End: 03-01-2024 Encounter for general adult medical examination without abnormal findings PRICE KEY DO Facility:[facility] Start: 02-15-2024 End: 02-15-2024 ambulatory PRICE Laura KEY DO Facility:[facility] Start: 02-15-2024 End: 02-15-2024 Patient encounter procedure PRICE Laura KEY DO [facility] Start: 02-01-2024 ambulatory PRICE KEY DO Faci lity:[facility] Start: 11-26-2023 End: 11-27-2023 Emergency department patient visit KRYSTEN CHESTER MD [facility] Start: 11-18-2023 End: 11-18-2023 ambulatory PRICE Laura KEY DO Facility:[facility] Start: 11-18-2023 End: 11-18-2023 Patient encounter procedure PRICE Laura KEY DO [facility] Start: 11-18-2023 ambulatory PRICE KEY DO Faci lity:[facility] Start: 04-29-2023 End: 04-29-2023 ambulatory Ceasar Thomas Facility:[facility] Start: 02-10-2023 End: 02-10-2023 ambulatory Brad Chi [place]isco Facility:[facility] Start: 01-27-2023 End: 01-27-2023 ambulatory Brad [facility] [place] Facility:[facility] Start: 01-20-2023 End: 01-20-2023 ambulatory Brad Chi [place] Facility:[facility] Start: 01-20-2023 End: 01-20-[address] Brad Moody Work Phone: [facility] Start: 01-19-2023 End: 01-19-2023 ambulatory Luis Antonio Daly Facility:[facility] Start: 01-19-[address] Brad Moody Work Phone: [facility]-Nuclear Medicine, [facility] Start: 01-16-2023 End: 01-16-2023 ambulatory Brad Moody Facility:[facility] Start: 01-16-2023 End: 01-16-[address] Brad Moody Work Phone: [facility] Start: 01-15-2023 End: 01-15-2023 ambulatory Luis Antonio Daly Facility:[facility] Start: 01-15-[address] Brad Moody Work Phone: [facility] Start: 01-13-2023 End: 01-13-[address] Brad Moody Work Phone: [facility] Work Phone: Start: 01-13-2023 End: 01-13-[address] Brad Moody Work Phone: [facility]-Laboratory, Phy Office 3rd Flr Start: 01-13-2023 End: 01-13-[address] Brad Moody Work Phone: [facility] Work Phone: Start: 01-13-2023 End: 01-13-[address] Brad Moody Work Phone: [facility] Start: 01-12-2023 End: 01-12-[address] Brad Moody Work Phone: [facility]-Laboratory, Phy Office 3rd Flr Start: 01-12-2023 End: 01-12-2023 ambulatory Brad Moody Facility:[facility] Start: 01-01-2023 End: 01-01-[address] Brad Moody Work Phone: [facility] Work Phone: Start: 01-01-2023 End: 01-01-[address] Brad Moody Work Phone: [facility]-Laboratory, Phy Office 3rd Flr Start: 12-26-2022 Non-patient / Non-visit Dr. Salvador Moody Work Phone: [facility] Start: 12-25-2022 End: 12-26-2022 ambulatory Brad Mooreok Facility:[facility] Start: 12-25-2022 End: 12-26-2022 Evaluation and management of inpatient Dr. Brad Moody [facility] Start: 12-25-2022 End: 12-25-2022 ambulatory Luis Antonio Daly Facility:[facility] Start: 12-25-2022 End: 12-25-2022 Non-patient / Non-visit Dr. Brad Moody Work Phone: [facility] Start: 12-11-2022 End: 12-11-2022 ambulatory Brad Moody Facility:[facility] Start: 12-11-2022 End: 12-11-[address] Brad Moody Work Phone: [facility] Start: 12-04-2022 Non-patient / Non-visit Dr. Salvador Moody Work Phone: [facility] Start: 12-03-2022 Non-patient / Non-visit Dr. Salvador Moody Work Phone: [facility] Start: 12-02-2022 Non-patient / Non-visit Dr. Salvador Moody Work Phone: [facility] Start: 12-02-2022 ambulatory Luis Antonio Daly Faci lity:[facility] Start: 12-02-2022 End: 12-04-2022 Evaluation and management of inpatient Brad Chi Fransisco Facility:[facility] Start: 12-02-2022 End: 12-04-2022 [facility] Start: 12-02-2022 End: 12-02-[address] Brad Moody Work Phone: [facility] Work Phone: Start: 12-02-2022 End: 12-02-2022 Patient encounter procedure [facility]-Cat Scan, [facility] Start: 07-02-2022 End: 07-02-[address] Brad Moody Work Phone: [facility] Work Phone: Start: 07-02-2022 End: 07-02-[address] Brad Moody Work Phone: [facility]-Laboratory, Phy Office 3rd Flr Start: 04-09-2022 Non-patient / Non-visit Dr. Salvador Moody Work Phone: [facility] Start: 04-09-2022 End: 04-09-2022 Evaluation and management of inpatient Dr. Brad Moody Work Phone: [facility]-Progressive Care Unit Start: 12-30-2021 End: 12-30-2021 Patient encounter procedure [facility]-Ultrasound, [facility] Start: 12-26-2021 End: 12-26-2021 Patient encounter procedure [facility]-Laboratory, Phy Office 3rd Flr Start: 12-17-2021 End: 12-17-2021 Patient encounter procedure [facility]-Radiology, [facility] Start: 12-14-2021 End: 12-14-2021 Emergency department patient visit [facility]-Emergency Department Start: 08-30-2021 Patient encounter procedure [facility]-Laboratory Start: 08-28-2021 Patient encounter procedure [facility]-Pulmonary Services/Neurology Procedures Date Procedure Procedure Detail Performing Clinician Start: 05-20-2025 Ct thorax w/o contra st belle Vincent Bautista DO Work Phone: Start: 04-28-2025 HEARING TEST/AUDIOGRAM Blaire Laura NIXON Work Phone: Start: 04-25-2025 Antibody screen IALN ALFRED Comment on above: Order Comment: Speci men Type: BLOOD SPECIMENOrdering Facility: [facility] Address: [address] [place] [address] Performed By: #### T SCR ####CC MAIN BLOOD BANKCLIA [id number] [facility] [id number] [place], [place] [id number] [place] Start: 04-25-2025 Radiologic exam ches t 2 views Mary Carmen Stephens APRN.RECHARGER Work Phone: Start: 04-11-2025 Cytp eval fine needl e aspirate interp & report Matt Olivo MD Work Phone: Start: 04-11-2025 HIGH RISK HUMAN KATYA LLOMA VIRUS (HPV), PCR FOR DETECTION AND GENOTYPING Matt Olivo MD Work Phone: Start: 04-11-2025 US NECK (POC) HNI US E ONLY Matt Olivo MD Work Phone: Start: 02-07-2025 Cytp eval fine needl e aspirate interp & report Cortney Desouza MD Work Phone: Start: 02-02-2025 Ct soft tissue neck w/contrast material Cortney Desouza MD Work Phone: Start: 01-19-2023 Radionuclide imaging of liver and/or biliary tract using radioactive isotope Dr. Brad Moody Work Phone: Start: 01-15-[address] Brad Moody Work Phone: Start: 01-13-2023 Computed tomography of abdomen and pelvis with contrast Dr. Brad Moody Work Phone: Start: 01-13-[address] Brad Moody Work Phone: Start: 12-25-[address] Brad gonzales Work Phone: Start: 12-25-2022 Fluoroscopic guidance María Moody Work Phone: Start: 12-03-[address] guidance [address] Brad Moody Work Phone: Start: 12-02-2022 US scan of gallbladder Start: 12-02-2022 Computed tomography of abdomen and pelvis with contrast Start: 11-29-2022 Cholecystectomy PRICE W ILKINS DO Start: 04-09-2022 Radionuclide imaging of perfusion of myocardium under exercise stress Dr. Brad Moody Work Phone: Start: 04-09-2022 Plain chest X-ray Dr. Damaso Moody Work Phone: Start: 12-30-2021 Ultrasound elastography Start: 12-30-2021 Ultrasonography of abdomen Start: 12-26-2021 Plain chest X-ray Start: 12-17-2021 Diagnostic radiograp hy of abdomen, decubitus and erect Start: 12-14-2021 CT of head without contrast Start: 12-14-2021 Plain chest X-ray Anaerobic microbial culture Dr. Brad Moody Work Phone: Anaerobic microbial culture Dr. Brad Moody Work Phone: Cataract surgery PRICE HOUSTON LITZY History of cholecystectomy S/P laparoscopic cholecystectomy PRICE KEY Investigation of transfusion reaction Dr. Brad Moody Work Phone: Investigation of transfusion reaction Dr. Brad Moody Work Phone: Microbial culture, routine Dr. Brad Moody Work Phone: Microbial culture, routine Dr. Brad Moody Work Phone: Urine culture Dr. Brad Moody Work Phone: Plan of Treatment Date Care Activity Detail Author Start: 06-02-2027 Diabetes Screening Diabetes Screening [facility] Start: 05-10-2027 Diabetes Screening Diabetes Screening [facility] Start: 05-09-2027 Diabetes Screening Diabetes Screening [facility] Start: 04-27-2027 Diabetes Screening Diabetes Screening [facility] Start: 02-07-2026 BP Controlled (<130/80) BP Controlled (<130/80) [facility] Start: 08-25-2025 End: 08-25-2025 Patient encounter procedure 08/25/2025 10:00 AM EST Office Visit Otolaryngology [address] [id number] Eliezer Church MD [address] [place] [address] follow up Otolaryngology Comment on above: follow up Start: 06-28-2025 End: 06-28-2025 Patient encounter procedure 06/28/2025 1:30 PM EDT Office Visit Otolaryngology [address] [address] Eliezer Church MD [address] [place] [address] follow up Otolaryngology Comment on above: follow up Start: 06-07-2025 End: 06-07-2025 Patient encounter procedure 06/07/2025 1:30 PM EDT Office Visit Radiation Oncology [address] [place], [place] [id number] Ilan Simon MD [address] [place] [address] [employer] H[employer] INSPECTOR [employer] PACKER/REFERRED BY DR MARTÍNEZ* Radiation Oncology Comment on above: F[employer]T H[employer] INSPECTOR [employer] PACKER/REFERRED BY DR MARTÍNEZ* Start: 06-06-2025 End: 06-06-2025 Follow-up encounter 06/06/2025 11:10 AM EDT Visit (SP) Office Hematology/Oncology [address], [place] [id number] Blake Martínez DO [address] [place] [address] Follow up from ENT Hematology/Oncology Comment on above: Follow up from ENT Start: 06-06-2025 End: 06-06-2025 ambulatory [facility] Laboratory Comment on above: CBC/CMP/hep remote panel.* CBC/CMP(S)/hep remot e panel.* Start: 06-02-2025 End: 06-02-2025 Patient encounter procedure 06/02/2025 10:15 AM EDT Office Visit Facial Plastics/Reconstruction [address] [place], [place] [id number] Eliezer Church MD [address] [place] [address] follow up Facial Plastics/Reconstruction Comment on above: follow up Start: 05-29-2025 Influenza vaccination Influenza Vaccine (#1) [facility] Start: 05-25-2025 End: 05-25-2025 Patient encounter procedure 05/25/2025 8:15 AM EDT Office Visit Otolarynogology [address] [place] [address] Matt Olivo MD [address] [place] [address] post op Otolarynogology Comment on above: post op Start: 05-23-2025 End: 05-23-2025 Patient encounter procedure 05/23/2025 3:30 PM EDT Office Visit Otolaryngology [address] [address] Matt Olivo MD [address] [place] [address] POSTOP Otolaryngology Comment on above: POSTOP Start: 05-20-2025 Annual PCP Team Chronic Disease Visit Annual PCP Team Chronic Disease Visit [facility] Start: 05-20-2025 End: 06-19-2025 CT Chest WO contrast CT CHEST WO IVCON Radiology Routine Lung nodules Expected: 05/20/2025 (Approximate), Expires: 06/19/2025 [facility] Work Phone: Comment on above: Expected: 05/20/2025 (Approximate), Expi res: 06/19/2025 Start: 05-20-2025 End: 05-20-2025 Patient encounter procedure 05/20/2025 9:00 AM EDT Appointment Radiology [address] [place] [address] Lung nodules [R91.8] Radiology Comment on above: Lung nodules [R91.8] Start: 05-19-2025 End: 05-19-2025 Patient encounter procedure 05/19/2025 11:30 AM EDT Office Visit Otolaryngology [address] [address] Harpreet Johnson MD [address] [place] [address] post op Otolaryngology Comment on above: post op Start: 05-12-2025 BP Controlled (<130/80) BP Controlled (<130/80) [facility] Start: 05-10-2025 Annual PCP Team Chronic Disease Visit Annual PCP Team Chronic Disease Visit [facility] Start: 05-10-2025 End: 05-10-2025 Follow-up encounter 05/10/2025 9:10 AM EDT Visit (SP) Office Hematology/Oncology [address], [place] [phone] Blake Martínez DO [address] [place], [place] [id number] Follow up from ENT Hematology/Oncology Comment on above: Follow up from ENT Start: 05-04-2025 End: 05-04-2025 Admission to same day surgery center 05/04/2025 7:30 AM EDT - 05/04/2025 5:45 PM EDT Surgery Admitting [address] [place] [address] Matt Olivo MD [address] [place] [address] REMOVAL OF TUMOR; TEMPORAL BONE Admitting Comment on above: REMOVAL OF TUMOR; TEMPORAL BONE Start: 05-04-2025 End: 05-04-2025 Cervical lymphadec modified radical neck dsj DISSECTION NECK MODIFIED RADICAL Cancer of parotid gland (HCC) 05/04/2025 7:30 AM EDT [facility] Start: 05-04-2025 End: 05-04-2025 Excision parotid tumor/gland total en bloc rmvl EXCISION OF PAROTID TUMOR/GLAND TOTAL EN BLOC REMOVAL W/ SACRIFICE OF FACIAL NERVE Cancer of parotid gland (HCC) 05/04/2025 7:30 AM EDT [facility] Start: 05-04-2025 End: 05-04-2025 Free fascial flap w/microvascular anastomosis FREE FASCIAL FLAP W/ MICROVASCULAR ANASTOMOSIS LOWER EXTREMITY Cancer of parotid gland (HCC) 05/04/2025 7:30 AM EDT [facility] Start: 05-04-2025 End: 05-04-2025 Grf facial nerve paralysis regional muscle tr [employer]CLE [employer]SFER FOR FACIAL NERVE PARALYSIS Cancer of parotid gland (HCC) 05/04/2025 7:30 AM EDT [facility] Start: 05-04-2025 End: 05-04-2025 Nerve graft head/neck 4 cm NERVE GRAFT HEAD/NECK = OR < 4CM LENGTH Cancer of parotid gland (HCC) 05/04/2025 7:30 AM EDT [facility] Start: 05-04-2025 End: 05-04-2025 Removal tumor temporal bone REMOVAL OF TUMOR; TEMPORAL BONE Cancer of parotid gland (HCC) 05/04/2025 7:30 AM EDT [facility] Start: 05-04-2025 Subsequent hospital visit by physician 05/04/2025 7:30 AM EDT Hospital Encounter Admitting [address] [place] [address] Matt Olivo MD [address] [place] [address] 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] Admitting Comment on above: 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] Start: 05-03-2025 End: 05-03-2025 Patient encounter procedure 05/03/2025 9:00 AM EDT Office Visit Otolaryngology [address] [address] Eliezer Church MD [address] [place] [address] PREOP Otolaryngology Comment on above: PREOP Start: 03-13-2025 End: 03-13-2025 Patient encounter procedure 03/13/2025 10:30 AM EDT Office Visit Otolaryngology [address] [address] Niesha Velazquez MD [address] [place] [address] left parotid tumor Otolaryngology Comment on above: left parotid tumor Start: 02-15-2025 End: 02-15-2025 Patient encounter procedure 02/15/2025 2:15 PM EDT Office Visit [facility] Ear, [facility], and Throat (ENT) [address] [facility] [place] [address] Cortney Desouza MD [address] [place] [address] test results/CT/CCMEDINA [facility] (ENT) Comment on above: test results/CT/CCMEDINA Start: 02-14-2025 End: 02-14-2025 Patient encounter procedure Mobile PET CT Comment on above: NM PET/CT SKULL-THIGH INITIAL Start: 02-02-2025 End: 02-02-2025 Patient encounter procedure 02/02/2025 1:00 PM EDT Appointment Radiology [address] [place] [address] Mass of left parotid gland [K11.8] Radiology Comment on above: Mass of left parotid gland [K11.8] Start: 01-18-2025 End: 04-19-2025 Creatinine and Glomerular filtration rate.predicted panel - Serum, Plasma or Blood CREATININE BLD Lab Routine Screening for nephropathy Expected: 01/18/2025, Expires: 04/19/2025 [facility] Comment on above: Expected: 01/18/2025, Expires: Start: 09-28-2024 Advance Directive Discussion Advance Directive Discussion [facility] Start: 09-28-2024 Medicare Advantage Annual Wellness Visit Medicare Advantage Annual Wellness Visit [facility] Start: 07-15-2024 End: 07-15-2024 Patient encounter procedure 07/15/2024 1:30 PM EDT Office Visit [facility] Otolaryngology (ENT) [address] [place] [address] Wilmar Khanna MD [address] [place] [address] [facility] [place] Otolaryngology (ENT) Start: 07-07-2024 Welcome to Medicare Visit (G0402) Welcome to Medicare Visit (G0402) [facility] Start: 07-04-2024 End: 07-04-2024 Patient encounter procedure 07/04/2024 1:30 PM EDT Office Visit Gastroenterolgy [address] [place] [address] Nati Govea, SURGICAL SERVICES COORDINATOR.RECHARGER [address] [place] [address] ED Follow Up - Diverticulitus Gastroenterolgy Comment on above: ED Follow Up - Diverticulitus Start: 06-09-2024 End: 06-09-2024 Patient encounter procedure 06/09/2024 8:30 AM EDT Office Visit Cardiology [address] [address] Aisha Barber, SURGICAL SERVICES COORDINATOR.RECHARGER [address] [place] [address] Follow up Cardiology Comment on above: Follow up Start: 06-03-2024 End: 06-03-2024 Patient encounter procedure 06/03/2024 10:00 AM EDT Appointment Cardiology Lab [address] [place] [address] Pericardial effusion (noninflammatory) [I31.39] Cardiology Lab Comment on above: Pericardial effusion (noninflammatory) [ I31.39] Start: 05-29-2024 Covid-19 Vaccine ( season) Covid-19 Vaccine ( season) [facility] Start: 05-29-2024 COVID-19 Vaccine ( season) COVID-19 Vaccine ( season) [facility] Start: 05-29-2024 Influenza vaccination Influenza Vaccine (#1) [facility] Start: 05-26-2024 End: 05-12-2025 Echocardiography ECHO Cardiology Routine Pericardial effusion (noninflammatory) Expected: 05/26/2024, Expires: 05/12/2025 [facility] Work Phone: Comment on above: Expected: 05/26/2024, Expires: Start: 05-20-2024 End: 05-20-2024 Patient encounter procedure 05/20/2024 9:40 AM EDT Office Visit [address] [address] Rufino Givens DO [address] [place] [address] / [place] [address] Post hospital. Choledocholithiasis. Hemoptysis. Incidental CT findings. [facility] Comment on above: Post hospital. Choledocholithiasis. Hemo ptysis. Incidental CT findings. Start: 05-12-2024 End: 05-12-2024 Patient encounter procedure 05/12/2024 2:00 PM EDT Office Visit Cardiology [address] [place] [address] Araceli Isidro MD [address] [place] [address] ED Follow Up - pericardial effusion Cardiology Comment on above: ED Follow Up - pericardial effusion Start: 09-28-2023 Advance Directive Discussion Advance Directive Discussion [facility] Start: 05-29-2023 Covid-19 Vaccine () Covid-19 Vaccine () [facility] Start: 01-15-2023 Catheterization of vein [facility] Start: 01-15-2023 Oxygen therapy [facility] Start: 01-15-2023 Patient discharge [facility] Start: 01-15-2023 Vital signs measurements [facility] Start: 12-26-2022 Patient discharge [facility] Start: 12-25-2022 Application of intermittent pneumatic compression device [facility] Start: 12-25-2022 End: 12-25-2022 Following clinical pathway protocol [facility] Start: 12-25-2022 Ambulation without limitation [facility] Start: 12-25-2022 Continuous pulse oximetry [facility] Start: 12-25-2022 Incentive spirometry [facility] Start: 12-25-2022 Measuring intake and output [facility] Start: 12-25-2022 Taking patient vital signs [facility] Start: 12-25-2022 [facility] Start: 12-25-2022 Admission procedure [facility] Start: 12-25-2022 Anes intraperitoneal upper abdomen w/laps nos ANESTH SURG UPPER ABDOMEN [facility] Start: 12-25-2022 Laparoscopy surg cholecystectomy LAPAROSCOPIC CHOLECYSTECTOMY [facility] Start: 12-04-2022 Patient discharge [facility] Start: 12-03-2022 [facility] Start: 12-03-2022 Oxygen therapy [facility] Start: 12-03-2022 Vital signs measurements [facility] Start: 12-03-2022 Dietary regime [facility] Start: 12-02-2022 Application of intermittent pneumatic compression device [facility] Start: 12-02-2022 Ambulation without limitation [facility] Start: 12-02-2022 Taking patient vital signs [facility] Start: 12-02-2022 [facility] Start: 12-02-2022 End: 12-02-2022 Following clinical pathway protocol [facility] Start: 12-02-2022 Admission procedure [facility] Start: 12-02-2022 [facility] Start: 04-09-2022 Patient discharge [facility] Work Phone: Start: 04-09-2022 [facility] Work Phone: Start: 04-09-2022 Following clinical pathway protocol [facility] Work Phone: Start: 04-09-2022 Assessment of risk of venous thromboembolism [facility] Work Phone: Start: 04-09-2022 Inhalation therapy procedure [facility] Work Phone: Start: 04-09-2022 Insertion of catheter into peripheral vein [facility] Work Phone: Start: 04-09-2022 Introduction of urinary catheter [facility] Work Phone: Start: 04-09-2022 Measuring intake and output [facility] Work Phone: Start: 04-09-2022 Oxygen therapy [facility] Work Phone: Start: 04-09-2022 Providing care according to standard [facility] Work Phone: Start: 04-09-2022 Provision of activity privileges [facility] Work Phone: Start: 04-09-2022 Tobacco use cessation education [facility] Work Phone: Start: 04-09-2022 [facility] Work Phone: Start: 04-09-2022 Admission procedure [facility] Work Phone: Start: 12-14-2021 [facility] Work Phone: Start: 2007 Hepatitis B (HBV) Vaccine (optional start 60+ years) Hepatitis B (HBV) Vaccine (optional start 60+ years) [facility] Start: 1966 Hepatitis A (HAV) Vaccine (optional start 19+ years) Hepatitis A (HAV) Vaccine (optional start 19+ years) [facility] Start: 1966 Urine microalbumin profile DTaP,Tdap,Td Vaccine (1 - Tdap) [facility] Start: 1965 Anxiety Screening Anxiety Screening [facility] Start: 1965 BP Controlled (<130/80) BP Controlled (<130/80) [facility] Start: 1965 Depression Screening Depression Screening [facility] Start: 1965 Hepatitis B surface antibody level LDL Cholesterol [facility] Start: 1965 Hepatitis C screening [facility] Start: 1965 Tdap Booster Tdap Booster [facility] Start: 1957 Diabetic foot examination Diabetic Foot Exam [facility] Start: 1957 Glaucoma screening Dilated Retinal Exam [facility] Start: 1957 Hepatitis B screening Urine Albumin:Creatinine Ratio [facility] Start: 1952 Hemoglobin A1c measurement HbA1C [facility] Anaerobic Culture Anaerobic Culture [facility] Bacteria identified in Unspecified specimen by Anaerobe culture [facility] Bacteria identified in Urine by Culture Urine Culture [facility] Comprehensive metabo lic 2000 panel - Serum or Plasma COMPREHENSIVE METABOLIC PANEL Lab Routine Elevated bilirubin Elevated LFTs Ordered: 05/10/2024 [facility] Work Phone: Comment on above: Ordered: 05/10/2024 End: 02-17-2026 CT Neck W contrast IV CT NECK SOFT TISSUE W IVCON Radiology Routine Mass of left parotid gland 1 Occurrences starting 01/18/2025 until 02/17/2026 [facility] Work Phone: Comment on above: 1 Occurrences starting 01/18/2025 until 02/17/2026 End: 04-28-2026 HEARING TEST/AUDIOGRAM HEARING TEST/AUDIOGRAM Audiology Routine 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) Cancer of base of tongue (HCC) Personal history of tobacco use Tympanic membrane perforation, left Hearing loss, unspecified hearing loss type, unspecified laterality 1 Occurrences starting 04/27/2025 until 04/28/2026 [facility] Work Phone: Comment on above: 1 Occurrences starting 04/27/2025 until 04/28/2026 Microbial culture, routine Wound Culture [facility] Patient Education [facility] Work Phone: Patient referral [facility] Work Phone: End: 03-14-2026 PET+CT Guidance for localization of tumor of Skull base to mid-thigh-- W 18F-FDG IV NM PET/CT SKULL-THIGH INITIAL Radiology Routine 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) 1 Occurrences starting 02/12/2025 until 03/14/2026 [facility] Work Phone: Comment on above: 1 Occurrences starting 02/12/2025 until 03/14/2026 [facility] Immunizations Immunization Date Immunization Notes Care Provider Fa heidi 11-02-2024 influenza virus vacc ine, unspecified formulation PRICE KEY DO [facility] 07-06-2024 influenza virus vacc ine, unspecified formulation PRICE ROSEY DO [facility] 07-06-2024 influenza, high dose seasonal, preservative-free To Assigned [facility] 11-21-2023 Respiratory syncytia l virus (RSV), vaccine, bivalent, protein subunit RSV prefusion F, diluent reconstituted, 0.5 mL, preservative free (ZSI=899) To Assigned [facility] 11-21-2023 RSV vaccine, preF A- preF B, recombinant PRICE KEY DO [facility] 05-26-2023 influenza virus vacc ine, unspecified formulation PRICE KEY DO [facility] 05-26-2023 Influenza, injectabl e, high-dose seasonal, quadrivalent, preservative free (VPG=750) To Assigned [facility] 05-26-2023 pneumococcal 20-samantha nt conjugate vaccine PRICE KEY DO [facility] 05-26-2023 Pneumococcal conjuga te 20 valent (PCV20), polysaccharide [id number] conjugate, adjuvant, PF (GJK=878) To Assigned [facility] 08-30-2021 pneumococcal conjuga te vaccine, 13 valent PRICE KEY DO [facility] 08-03-2021 SARS-CoV-2 mRNA (tozinameran) vaccine PRICE KEY DO [facility] 06-20-2021 zoster vaccine recombinant PRICE KEY DO [facility] 05-27-2021 influenza virus vacc ine, unspecified formulation PRIEC KEY DO [facility] 03-12-2021 zoster vaccine recombinant PRICE KEY DO [facility] 01-02-2021 SARS-CoV-2 (COVID-19 ) mRNA-1273 vaccine; Translations: [Moderna COVID-19 Vaccine] PRICE KEY DO [facility] Vaccine [facility] 12-05-2020 SARS-CoV-2 (COVID-19 ) mRNA-1273 vaccine; Translations: [Moderna COVID-19 Vaccine] PRICE KEY DO [facility] Vaccine [facility] Comment on above: Result Comment: 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 06-21-2020 influenza virus vacc ine, unspecified formulation PRICE KEY DO [facility] 06-21-2020 influenza, injectabl e, quadrivalent, contains preservative To Assigned [facility] 10-20-2019 influenza virus vacc ine, unspecified formulation PRICE KEY DO [facility] 10-20-2019 influenza, injectabl e, quadrivalent, contains preservative To Assigned [facility] 06-17-2019 influenza virus vacc ine, unspecified formulation PRICE KEY DO [facility] 06-17-2019 influenza, injectabl e, quadrivalent, contains preservative To Assigned [facility] 07-17-2017 influenza virus vacc ine, unspecified formulation PRICE KEY DO [facility] Payers Date Payer Category Payer Private Health Insurance [id number] 2024 Medicare [id number] 2024 Unknown [id number] 2024 Medicare (Managed Care) 1.2. [id number] 2024 Unknown [id number] 2023 Medicare [id number] 2023 Medicare [id number]. [id number] 2022 Medicare [id number] 2022 Self-pay [id number] 2016 Medicare [id number] 1947 Unknown [id number] 2.16.8 40.1.520248.3.579.2.627 1947 Unknown [id number] 2.16.8 40.1.885242.3.579.2.627 1947 Unknown [id number] 2.16.8 40.1.642240.3.579.2.627 1947 Unknown [id number] 2.16.8 40.1.968422.3.579.2.627 1947 Unknown [id number] 2.16.8 40.1.315379.3.579.2.627 1947 Unknown [id number] 2.16.8 40.1.325050.3.579.2.627 1947 Unknown [id number] 2.16.8 40.1.487251.3.579.2.627 1947 Unknown [id number] 2.16.8 40.1.749672.3.579.2.627 1947 Unknown [id number] 2.16. 840.1.856743.3.579.2.627 1947 Unknown [id number] 2.16. 840.1.908997.3.579.2.627 1947 Unknown [id number] 2.16.8 40.1.821793.3.579.2.627 1947 Unknown [id number] 2.16.8 40.1.308792.3.579.2.627 1947 Unknown [id number] 2.16.8 40.1.818047.3.579.2.627 1947 Unknown [id number] 2.16.8 40.1.939004.3.579.2.627 Unknown [id number] 2.16.8 40.1.172760.3.579.2.462 Unknown [id number] 2.16.8 40.1.074169.3.579.2.462 Unknown [id number] 2.16.8 40.1.754989.3.579.2.462 Unknown [id number] 2.16.8 40.1.766428.3.579.2.462 Unknown [id number] 2.16.8 40.1.611445.3.579.2.462 Unknown [id number] 2.16.8 40.1.318592.3.579.2.462 Unknown [id number] 2.16.8 40.1.370858.3.579.2.462 Unknown [id number] 2.16.8 40.1.456860.3.579.2.462 Unknown [id number] 2.16.8 40.1.348934.3.579.2.462 Unknown [id number] 2.16.8 40.1.851896.3.579.2.462 Unknown [id number] 2.16.8 40.1.941975.3.579.2.462 Unknown [id number] 2.16.8 40.1.177030.3.579.2.462 Unknown [id number] 2.16.8 40.1.413392.3.579.2.462 Unknown [id number] 2.16.8 40.1.215624.3.579.2.462 Unknown [id number] 2.16.8 40.1.254982.3.579.2.462 Unknown [id number] 2.16.8 40.1.658347.3.579.2.462 Unknown [id number] 2.16.8 40.1.306384.3.579.2.462 Unknown [id number] 2.16.8 40.1.350755.3.579.2.462 Unknown [id number] 2.16.8 40.1.412120.3.579.2.462 Unknown [id number] 2.16.8 40.1.455592.3.579.2.462 Unknown [id number] 2.16.8 40.1.276021.3.579.2.462 Unknown [id number] 2.16.8 40.1.048862.3.579.2.462 Social History Date Type Detail Facility Start: 12-14-2021 End: 01-15-2023 Tobacco smoking status RUST Unknown if ever smoked [facility] Start: 1945 Sex Assigned At Male [facility] Start: 11-06-2023 End: 04-18-2025 Tobacco smoking status Smokes tobacco daily (finding) [facility] Comment on above: Former Cigarette smo ker Start: 05-09-2024 End: 05-25-2025 Tobacco smoking status NHIS Ex-smoker [facility] Start: 09-28-1963 End: 09-28-1991 History of tobacco use Current smoker [facility] Start: 09-28-1963 End: 09-28-1991 History of tobacco use Cigarette Smoker [facility] Start: 05-09-2024 End: 05-25-2025 Tobacco use and exposure Smokeless tobacco non-user [facility] Start: 05-10-2024 End: 06-06-2025 Alcohol intake Ex-drinker (finding) [facility] Start: 04-28-2024 End: 05-25-2025 History of Social function [facility] Start: 04-28-2024 End: 05-25-2025 [facility] Utilities [facility] Has the [employer], or [employer] threatened to shut off services in your home in past 12Mo No [facility] Start: 08-29-2012 PHQ-2 Score 2 [facility] (I/We) worried ramone er (my/our) food would run out before (I/we) got money to buy more. Never true [facility] Start: 1945 Sex Assigned At Not on file [facility] Start: 08-01-2012 End: 12-04-2020 Sex Male (finding) [facility] Start: 02-27-2025 Tobacco Comment Pt smoked 1/2 pack daily x 40 years, quit smoking January 2025 [facility] Tobacco Nicotine Use: pt denies at this time. [facility] Start: 09-28-1961 Tobacco smoking stat us OHIS Occasional tobacco smoker [facility] How often to you hav e a drink containing alcohol? Never [facility] Medical Equipment Procedure Code Equipment Code Equipment Original Text Equipment Identifier Dates Total cholecystectomy with exploration of common bile duct SURGICEL, POWDER 3GR FDA Start: 12-25-2022 Total cholecystectomy with exploration of common bile duct Ligation clip, synthetic polymer, non-bioabsorbable ([id number] FDA Start: 12-25-2022 Total cholecystectomy with exploration of common bile duct SURGICEL, POWDER 3GR FDA Start: 12-25-2022 Total cholecystectomy with exploration of common bile duct SURGICEL, POWDER 3GR FDA Start: 12-25-2022 Stent Wallflex 10mm 8.5fr Permalume Covering 40mm Biliary Rapid Exchange - [id number] Start: 04-29-2024 See Instructions , AccuChek Test Strips. Use to check blood sugar once daily. Okay to dispense insurance preferred brand. #1 bottle of 100, # 1 EA, 11 Refill(s), Pharmacy: [facility], 170.6, cm, 11/21/24 13:41:00 EST, Height, 98.2, kg, 01/05/25 14:16:00 EDT, Dosing Weight Start: 01-31-2025 See Instructions , AccuChek Lancets. Use to check blood sugar once daily. Okay to dispense insurance preferred brand. #1 box of 100, # 1 EA, 11 Refill(s), Pharmacy: [facility] 1812, 170.6, cm, 11/21/24 13:41:00 EST, Height, 98.2, kg, 01/05/25 14:16:00 EDT, Dosing Weight Start: 01-31-2025 See Instructions , AccuChek Test Strips. Use to check blood sugar once daily. Okay to dispense insurance preferred brand. #1 bottle of 100, # 1 EA, 11 Refill(s), Pharmacy: [facility], 170.6, cm, 11/21/24 13:41:00 EST, Height, 98.2, kg, 01/05/25 14:16:00 EDT, Dosing Weight Start: 01-31-2025 See Instructions , AccuChek Lancets. Use to check blood sugar once daily. Okay to dispense insurance preferred brand. #1 box of 100, # 1 EA, 11 Refill(s), Pharmacy: [facility], 170.6, cm, 11/21/24 13:41:00 EST, Height, 98.2, kg, 01/05/25 14:16:00 EDT, Dosing Weight Start: 01-31-2025 See Instructions , AccuChek Test Strips. Use to check blood sugar once daily. Okay to dispense insurance preferred brand. #1 bottle of 100, # 1 EA, 11 Refill(s), Pharmacy: [facility], 170.6, cm, 11/21/24 13:41:00 EST, Height, 98.2, kg, 01/05/25 14:16:00 EDT, Dosing Weight Start: 01-31-2025 See Instructions , AccuChek Lancets. Use to check blood sugar once daily. Okay to dispense insurance preferred brand. #1 box of 100, # 1 EA, 11 Refill(s), Pharmacy: [facility], 170.6, cm, 11/21/24 13:41:00 EST, Height, 98.2, kg, 01/05/25 14:16:00 EDT, Dosing Weight Start: 01-31-2025 Implant Irene/Carl Hamilton Eyelid Chain Flexible Sterile 1.2gm - [id number] Start: 05-04-2025 3.5mm Vessel Range 3.2mm X 3.8mm Bx 6 - [id number] Start: 05-04-2025 2.0mm Vessel Range 1.8mm X 2.2mm Bx 6 - [id number] Start: 05-04-2025 Goals Date Patient Goal Desired Activity /State Functional Status Date Assessment Result Facility 05-25-2025 Total score [AUDIT-C] 0 05/25/20 8:06 AM EDT Lula Sadler MA [facility] 04-30-2024 Are you deaf, or do you have serious difficulty hearing No 04/30/2024 2:53 PM EDT Yoselyn Salinas, ELI No [facility] 04-30-2024 Are you blind, or do you have serious difficulty seeing, even when wearing glasses No 04/30/2024 2:53 PM EDT Yoselyn [place], ELI No [facility] 04-30-2024 Do you have serious difficulty walking or climbing stairs No 04/30/2024 2:53 PM EDT Yoselyn [place], ELI No [facility] 04-30-2024 Do you have difficul ty dressing or bathing No 04/30/2024 2:53 PM EDT Yoselyn [place], ELI No [facility] 04-30-2024 Because of a physica l, mental, or emotional condition, do you have difficulty doing errands alone such as visiting a physician's office or shopping No 04/30/2024 2:53 PM EDT Yoselyn [place], ELI No [facility] 03-21-2024 Functional Status Independent [facility] 03-21-2024 Functional Status ID band on, Call device within reach, Bed in low position, Wheels locked, Upper/Half-Length side-rails up, Safety level maintained [facility] 11-27-2023 Functional Status Independent [facility] 11-26-2023 Functional Status Awake, Resting [facility] 12-26-2022 Functional status Ambulates;Chair [facility] Work Phone: 12-04-2022 Functional status Ambulates;Up ad rachna Glover [facility] Work Phone: 04-09-2022 Functional status Activity Abili ty Independent [facility] Work Phone: [facility] Mental Status Date Assessment Result Facility 04-30-2024 Because of a physica l, mental, or emotional condition, do you have serious difficulty concentrating, remembering, or making decisions No 04/30/2024 2:53 PM EDT Yoselyn [place], ELI [facility] 03-21-2024 Mental Status Orientation Oriented x 4 [facility] 03-21-2024 Mental Status [facility] 11-27-2023 Mental Status Orientation Oriented x 4 [facility] 11-26-2023 Mental Status [facility] 01-15-2023 Cognitive function Voice/Name [facility] Work Phone: 12-26-2022 Cognitive function Level Of Cons ciousness Awake;Alert;Appropriate;Fol lows Commands [facility] Work Phone: 12-26-2022 Cognitive function Voice/Name [facility] Work Phone: 12-04-2022 Cognitive function Voice/Name [facility] Work Phone: 04-09-2022 Cognitive function Voice/Name [facility] Work Phone: 12-14-2021 Cognitive function Level Of Cons ciousness Awake;Alert;Appropriate;Fol lows Commands [facility] Work Phone: Clinical Notes 12-02-2022 to 08-10-2025 Ilan Simon MD - 06/07/2025 1:10 PM Romina Zhu RN - 06/07/2025 1:03 PM EDTTeleImani Mccormick RN - 06/06/2025 11:13 AM EDBlake Ovalles DO - 06/06/2025 11:10 AM EDT Note Date & Type Note Facility 08-10-2025 Note HNO ID: [id number] Author: DAVEY CORDOBA MD Service: Hospital Medicine Author Type: Physician Type: Progress Notes Filed: 08/10/2025 15:56 Note Text: Documentation Query Please specify a diagnosis associated with the Clinical Indicators for this patient Obesity BMI 30.67 kg/m? Please clarify the Present on Admission status This document will become part of the patient's medical record. [facility] 08-10-2025 Note HNO ID: [id number] Author: DAVEY CORDOBA MD Service: Hospital Medicine Author Type: Physician Type: Progress Notes Filed: 08/10/2025 15:51 Note Text: Documentation Query Please clarify the Diagnosis associated with clinical indicators Metabolic encephalopathy Please clarify the Present on Admission status Present on Admission This document will become part of the patient's medical record. [facility] 08-10-2025 Note HNO ID: [id number] Author: MEGHANN ESCOBEDO RN Service: Care Management Author Type: Registered Nurse Type: Care Mgt Progress Note Filed: 08/10/2025 15:30 Note Text: CARE MANAGEMENT PROGRESS NOTE SERVICE DATE: 08/10/2025 SERVICE TIME: 3:25 PM LOS: 4 days Needs Prior to Discharge: Equipment Delivery, Nutrition Enteral Arrangements, Home Care Order, Other: See Comment (Medical Clearance) IMM Follow Up Copy Given: Yes Copy given to:: Patient Method: In Person EMR reviewed. [facility] can accept for [facility] needs with a plan for a start of care tomorrow afternoon (08/11). [facility] will plan to deliver the tube feed supplies to the patient's sister's residence tomorrow before the scheduled Home Care visit. Kristine confirmed plan for delivery of the oral suction machine to the patient's bedside before the end of the day today. The patient and his tdvxea-sx-hce Dasha were updated at bedside. Dr. Cordoba was also updated. Plan for discharge tomorrow late morning/early afternoon if the patient is able to tolerate tube feedings at goal rate and all Home Care arrangements are confirmed SIGNATURE: Meghann Escobedo RN PATIENT NAME: Diana Thurston DATE: August 10, 2025 TIME: 3:25 PM [facility] 08-10-2025 Note HNO ID: [id number] Author: DAVEY CORDOBA MD Service: Hospital Medicine Author Type: Physician Type: Progress Notes Filed: 08/10/2025 14:44 Note Text: DEPARTMENT OF HOSPITAL MEDICINE PROGRESS NOTE SERVICE DATE: 08/10/2025 SERVICE TIME: 2:42 PM Hospital Medicine/Primary Attending: Davey Cordoba,* NIGHT AND WEEKEND COVERAGE: CROWDER COVERAGE: Days: [phone], please page attending physician. Nights: [phone], please page [place] [facility] Night coverage pager [phone]. Subjective INTERVAL HPI: Seen and examined. Patient was resting. No overnight events. Zmecen-[id number]-kxp at bedside, questions answered Does not complain much abdominal pain. Continues to have oral secretions which she is suctioning. No chest pain. Current Facility-Administered Medications Medication Dose Route Frequency carboxymethylcellulose sodium 2-5 drop (CELLUVISC) 2-5 drop LEFT EYE q 1 H PRN White Petrolatum-Mineral Oil 1 application ophthalmic ointment (LACRI-LUBE) 1 application BOTH EYES PRN enoxaparin 40 mg injection (LOVENOX) 40 mg SUBCUTANEOUS q 24 HR NaCl 0.9% iv flush bag 20 mL INTRAVENOUS PRN ondansetron (PF) 4 mg injection (ZOFRAN) 4 mg INTRAVENOUS q 6 H PRN pantoprazole 40 mg injection (PROTONIX) 40 mg INTRAVENOUS DAILY (6 AM) thiamine 200 mg injection 200 mg INTRAVENOUS DAILY dextrose 5% in NaCl 0.45% iv infusion 30-150 mL/hr INTRAVENOUS PRN acetaminophen 650 mg suppository (TYLENOL) 650 mg RECTAL BID PRN morphine 2.5 mg oral liquid 2.5 mg ORAL q 4 H PRN polyvinyl alcohol 1.4 % 1 drop (LIQUIFILM TEARS) 1 drop BOTH EYES PRN Objective PHYSICAL EXAM: BP 122/66 Pulse 82 Temp (Src) 98.7 (Oral) Resp 16 Ht 5' 6 (1.68m) Wt 185 lb 3 oz (84.0kg) SpO2 95% BMI 29.90 kg/(m2). O2 Therapy: Room Air Physical Exam Performed General, pleasant elderly male, alert Dysarthric speech due to tongue and throat swelling Defect to left jaw area, left neck due to previous surgery Large tongue, difficult to examine oropharynx CV RRR Lungs clear upper de jesus Abdomen soft. Nontender. GJ tube present No lower extremity edema Lines, Drains, and Airways Line Duration Peripheral 08/06/25 [facility] Right Antecubital 20 Gauge 4 days Drain Duration External Collection Device 08/06/25 2030 [facility] 3 days GI/ Feeding 08/07/25 1629 [facility] Gastro-Jejunal Right Abdomen 18 Fr 2 days Reviewed lines and needs to be continued: REASONS: Intravenous fluids DATA: Diagnostic tests reviewed for today's visit: Most recent imaging CBC, Coags, BMP, Mg, Phos Recent Labs 08/08/25 0607 WBC 3.39* HB 14.9 HCT 44.0 PLT 128* NA 140 K 3.7 CHLOR 100 CO2 28 BUN 24 CREAT 1.00 GLUC 125* CA 9.6 MG 1.7 P 2.6* Liver Function, Amylase, AND Lipase Recent Labs 08/08/25 0607 TPROT 6.5 ALB 3.6* ALT 18 AST 20 ALKPHOS 70 TBILI 0.2 HOSPITAL COURSE: Bower E Karena is a 80 year old male former smoker presented with past medical history of 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 Patient reports food getting stuck in throat, choking up on food, he is having difficulty managing his oral secretions. Also complain of generalized weakness, difficulty managing at home. Currently chemotherapy is paused, he is currently getting weekly radiation for both left parotid tumor and base of tongue lesion. Last treatment on 08/04/2025. Patient has been seeing a dietitian, PEG placement was discussed at her last oncology visit. On presentation to the ED he was afebrile, vital signs were stable. Sodium 136, potassium 5.8, bicarb 25, BUN 43, creatinine 1.4, blood glucose 99. Calcium 10.6. LFTs normal range. CK 30. Lactate 2.1. Troponin slightly elevated 14, subsequent troponin 11. WBC 5.25, hemoglobin 17, hematocrit 50.7, platelets 158. Chest x-ray, opacity in lower right chest likely pleural fat/diaphragmatic elevation. No acute finding. Brain CT, left frontal craniectomy and cranioplasty with metallic plate. Neck CT, extensive postop finding from left parotidectomy and mastoidectomy with resection of left parotid/mastoid mass. No residual or recurrent mass along the free flap reconstruction. Extensive mucosal edema involving the tongue base, oropharynx and hypopharynx, involving the epiglottis with effacement of bilateral vallecula and piriform sinuses. Mild narrowing of supraglottic airway. Interval decreased confluent enhancing mass involving the tongue base with ill-defined residual enhancement. CT chest, no evidence of acute abnor (more content not included)... [facility] 08-09-2025 Note HNO ID: [id number] Author: DAVEY CORDOBA MD Service: Hospital Medicine Author Type: Physician Type: Progress Notes Filed: 08/09/2025 13:10 Note Text: DEPARTMENT OF HOSPITAL MEDICINE PROGRESS NOTE SERVICE DATE: 08/09/2025 SERVICE TIME: 1:09 PM Hospital Medicine/Primary Attending: Davey Cordoba,* NIGHT AND WEEKEND COVERAGE: CROWDER COVERAGE: Days: [phone], please page attending physician. Nights: [phone], please page [place] [facility] Night coverage pager [phone]. Subjective INTERVAL HPI: Seen and examined. Patient was resting. He answers questions appropriately, just difficult to understand speech. Seen tolerating tube feeds denies chest pain, shortness of breath. Continued to have oral secretion which he is managing with suction. Current Facility-Administered Medications Medication Dose Route Frequency carboxymethylcellulose sodium 2-5 drop (CELLUVISC) 2-5 drop LEFT EYE q 1 H PRN White Petrolatum-Mineral Oil 1 application ophthalmic ointment (LACRI-LUBE) 1 application BOTH EYES PRN enoxaparin 40 mg injection (LOVENOX) 40 mg SUBCUTANEOUS q 24 HR NaCl 0.9% iv flush bag 20 mL INTRAVENOUS PRN ondansetron (PF) 4 mg injection (ZOFRAN) 4 mg INTRAVENOUS q 6 H PRN pantoprazole 40 mg injection (PROTONIX) 40 mg INTRAVENOUS DAILY (6 AM) thiamine 200 mg injection 200 mg INTRAVENOUS DAILY dextrose 5% in NaCl 0.45% iv infusion 30-150 mL/hr INTRAVENOUS PRN acetaminophen 650 mg suppository (TYLENOL) 650 mg RECTAL BID PRN morphine 2.5 mg oral liquid 2.5 mg ORAL q 4 H PRN Objective PHYSICAL EXAM: BP 146/75 Pulse 84 Temp (Src) 98.4 (Axillary) Resp 16 Ht 5' 6 (1.68m) Wt 185 lb 3 oz (84.0kg) SpO2 94% BMI 29.90 kg/(m2). O2 Therapy: Room Air Physical Exam Performed General, pleasant elderly male, alert Dysarthric speech due to tongue and throat swelling Defect to left jaw area, left neck due to previous surgery Large tongue, difficult to examine oropharynx CV RRR Lungs clear upper de jesus, poor inspiratory effort Abdomen soft. Nontender. GJ tube present No lower extremity edema Lines, Drains, and Airways Line Duration Peripheral 08/06/25 [facility] Right Antecubital 20 Gauge 3 days Drain Duration External Collection Device 08/06/25 2030 [facility] 2 days GI/ Feeding 08/07/25 1629 [facility] Gastro-Jejunal Right Abdomen 18 Fr 1 day Reviewed lines and needs to be continued: REASONS: Intravenous fluids DATA: Diagnostic tests reviewed for today's visit: Most recent imaging CBC, Coags, BMP, Mg, Phos Recent Labs 08/08/25 0607 08/07/25 0619 08/06/25 2222 08/06/25 1913 08/06/25 1812 08/06/25 1545 WBC 3.39* 2.34* -- -- -- 5.25 HB 14.9 14.1 -- -- -- 17.1* HCT 44.0 41.2 -- -- -- 50.7 PLT 128* 125* -- -- -- 158 INR -- 1.2 1.2 -- -- -- NA 140 137 -- -- 131* 136 K 3.7 3.7 -- 4.2 -- 5.8* CHLOR 100 98 -- -- 92* 93* CO2 28 25 -- -- 25 25 BUN 24 37* -- -- 41* 43* CREAT 1.00 1.09 -- -- 1.14 1.40* GLUC 125* 165* -- -- 84 99 CA 9.6 9.5 -- -- 9.4 10.6* MG 1.7 2.0 -- -- -- 2.3 P 2.6* 3.6 -- -- -- -- Liver Function, Amylase, AND Lipase Recent Labs 08/08/25 0607 08/07/25 0619 08/06/25 1812 08/06/25 1649 08/06/25 1545 TPROT 6.5 6.4 6.7 -- 7.9 ALB 3.6* 3.5* 3.5* -- 4.1 ALT 18 23 -- -- 31 AST 20 24 -- -- 32 ALKPHOS 70 74 77 -- 91 TBILI 0.2 0.3 0.3 -- 0.4 LACT -- -- -- 1.9 2.1* HOSPITAL COURSE: Bower Laura Thurston is a 80 year old male former smoker presented with past medical history of 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 Patient reports food getting stuck in throat, choking up on food, he is having difficulty managing his oral secretions. Also complain of generalized weakness, difficulty managing at home. Currently chemotherapy is paused, he is currently getting weekly radiation for both left parotid tumor and base of tongue lesion. Last treatment on 08/04/2025. Patient has been seeing a dietitian, PEG placement was discussed at her last oncology visit. On presentation to the ED he was afebrile, vital signs were stable. Sodium 136, potassium 5.8, bicarb 25, BUN 43, creatinine 1.4, blood glucose 99. Calcium 10.6. LFTs normal range. CK 30. Lactate 2.1. Troponin slightly elevated 14, subsequent troponin 11. WBC 5.25, hemoglobin 17, hematocrit 50.7, platelets 158. Chest x-ray, opacity in lower right chest likely pleural fat/diaphragmatic elevation. No acute finding. Brain CT, left frontal craniectomy and cranioplasty with metallic plate. Neck CT, extensive postop findin (more content not included)... [facility] 08-09-2025 Note HNO ID: [id number] Author: MEGHANN ESCOBEDO RN Service: Care Management Author Type: Registered Nurse Type: Care Mgt Progress Note Filed: 08/09/2025 13:02 Note Text: CARE MANAGEMENT PROGRESS NOTE SERVICE DATE: 08/09/2025 SERVICE TIME: 12:42 PM LOS: 3 days Needs Prior to Discharge: Nutrition Enteral Arrangements, Home Care Order, Other: See Comment (Medical Clearance) ENR reviewed. RN CHARMAINE met with the patient and his owzsbd-bs-pyp Dasha at bedside to follow-up regarding Home Care choices. Referrals sent to [facility] and [facility] per patient preference. If [facility] cannot accept, the patient is agreeable to referrals being sent to other agencies. A referral was also sent to [facility] per patient's preference for an oral suction machine. CM assigned will continue to follow. [address] [place] [address] cannot accept.Multiple additional Home Care referrals sent. SIGNATURE: Meghann Escobedo RN PATIENT NAME: Diana Thurston DATE: August 09, 2025 TIME: 12:42 PM [facility] 08-08-2025 Note HNO ID: [id number] Author: LARISSA WALL APRN.HERB Service: General Surgery Author Type: Nurse Practitioner Type: Plan of Care Filed: 08/08/2025 14:34 Note Text: Patient had Image guided placement of percutaneous GJ tube. Ok to start TF based on nutrition recommendations No further surgical intervention is needed - will sign off can reconsult PRN Thanks Larissa Wall APRN.RECHARGER [facility] 08-08-2025 Note HNO ID: [id number] Author: DAVEY CORDOBA MD Service: Hospital Medicine Author Type: Physician Type: Progress Notes Filed: 08/08/2025 14:30 Note Text: DEPARTMENT OF HOSPITAL MEDICINE PROGRESS NOTE SERVICE DATE: 08/08/2025 SERVICE TIME: 2:26 PM Hospital Medicine/Primary Attending: Davey Cordoba,* NIGHT AND WEEKEND COVERAGE: CROWDER COVERAGE: Days: [phone], please page attending physician. Nights: [phone], please page [place] [facility] Night coverage pager [phone]. Subjective INTERVAL HPI: Seen and examined. Patient was resting. He answers questions appropriately, just difficult to understand speech. He was complaining some abdominal pain which he reports has resolved without taking pain medicine. Denies chest pain, shortness of breath. Continued to have oral secretion which he is managing with suction. Current Facility-Administered Medications Medication Dose Route Frequency carboxymethylcellulose sodium 2-5 drop (CELLUVISC) 2-5 drop LEFT EYE q 1 H PRN White Petrolatum-Mineral Oil 1 application ophthalmic ointment (LACRI-LUBE) 1 application BOTH EYES PRN enoxaparin 40 mg injection (LOVENOX) 40 mg SUBCUTANEOUS q 24 HR NaCl 0.9% iv flush bag 20 mL INTRAVENOUS PRN ondansetron (PF) 4 mg injection (ZOFRAN) 4 mg INTRAVENOUS q 6 H PRN pantoprazole 40 mg injection (PROTONIX) 40 mg INTRAVENOUS DAILY (6 AM) thiamine 200 mg injection 200 mg INTRAVENOUS DAILY Parenteral Nutrition - Adult INTRAVENOUS ONCE PN (2200 START) dextrose 5% in NaCl 0.45% iv infusion 30-150 mL/hr INTRAVENOUS PRN acetaminophen 650 mg suppository (TYLENOL) 650 mg RECTAL BID PRN morphine 2.5 mg oral liquid 2.5 mg ORAL q 4 H PRN Objective PHYSICAL EXAM: BP 146/76 Pulse 75 Temp (Src) 97.9 (Oral) Resp 16 Ht 5' 6 (1.68m) Wt 184 lb 4.9 oz (83.6kg) SpO2 96% BMI 29.76 kg/(m2). O2 Therapy: Room Air Physical Exam Performed General, pleasant elderly male, alert Dysarthric speech due to tongue and throat swelling Defect to left jaw area, left neck due to previous surgery Large tongue, difficult to examine oropharynx CV RRR Lungs clear upper de jesus, poor inspiratory effort Abdomen soft. GJ tube present No lower extremity edema Lines, Drains, and Airways Line Duration Peripheral 08/06/25 [facility] Right Antecubital 20 Gauge 2 days Peripheral 08/06/25 1658 Short Right Hand 20 Gauge 1 day Drain Duration External Collection Device 08/06/25 2030 [facility] 1 day GI/ Feeding 08/07/25 1629 [facility] Gastro-Jejunal Right Abdomen 18 Fr <1 day Reviewed lines and needs to be continued: REASONS: Intravenous fluids DATA: Diagnostic tests reviewed for today's visit: Most recent imaging CBC, Coags, BMP, Mg, Phos Recent Labs 08/08/25 0607 08/07/25 0619 08/06/25 2222 08/06/25 1913 08/06/25 1812 08/06/25 1545 WBC 3.39* 2.34* -- -- -- 5.25 HB 14.9 14.1 -- -- -- 17.1* HCT 44.0 41.2 -- -- -- 50.7 PLT 128* 125* -- -- -- 158 INR -- 1.2 1.2 -- -- -- NA 140 137 -- -- 131* 136 K 3.7 3.7 -- 4.2 -- 5.8* CHLOR 100 98 -- -- 92* 93* CO2 28 25 -- -- 25 25 BUN 24 37* -- -- 41* 43* CREAT 1.00 1.09 -- -- 1.14 1.40* GLUC 125* 165* -- -- 84 99 CA 9.6 9.5 -- -- 9.4 10.6* MG 1.7 2.0 -- -- -- 2.3 P 2.6* 3.6 -- -- -- -- Liver Function, Amylase, AND Lipase Recent Labs 08/08/25 0607 08/07/25 0619 08/06/25 1812 08/06/25 1649 08/06/25 1545 TPROT 6.5 6.4 6.7 -- 7.9 ALB 3.6* 3.5* 3.5* -- 4.1 ALT 18 23 -- -- 31 AST 20 24 -- -- 32 ALKPHOS 70 74 77 -- 91 TBILI 0.2 0.3 0.3 -- 0.4 LACT -- -- -- 1.9 2.1* HOSPITAL COURSE: Bower Laura Thurston is a 80 year old male former smoker presented with past medical history of 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 Patient reports food getting stuck in throat, choking up on food, he is having difficulty managing his oral secretions. Also complain of generalized weakness, difficulty managing at home. Currently chemotherapy is paused, he is currently getting weekly radiation for both left parotid tumor and base of tongue lesion. Last treatment on 08/04/2025. Patient has been seeing a dietitian, PEG placement was discussed at her last oncology visit. On presentation to the ED he was afebrile, vital signs were stable. Sodium 136, potassium 5.8, bicarb 25, BUN 43, creatinine 1.4, blood glucose 99. Calcium 10.6. LFTs normal range. CK 30. Lactate 2.1. Troponin slightly elevated 14, subsequent troponin 11. WBC 5.25, hemoglobin 17, hematocrit 50.7, platelets 158. Chest x-ray, opacity in lower (more content not included)... [facility] 08-08-2025 Note HNO ID: [id number] Author: MEGHANN ESCOBEDO RN Service: Care Management Author Type: Registered Nurse Type: Care Mgt Progress Note Filed: 08/08/2025 11:47 Note Text: CARE MANAGEMENT PROGRESS NOTE SERVICE DATE: 08/08/2025 SERVICE TIME: 11:41 AM LOS: 2 days Needs Prior to Discharge: Facility or Agency Choices, Home Care Order, Nutrition Enteral Arrangements, Other: See Comment (Medical Clearance) [place] of Choice Given: Yes Level of Care Discussed: Home Care Financial Disclosure Provided: Yes Provider List: Home Care Provider list within the patient's requested geographic area shared with the patient/family: Yes of zip code: [facility] Quality and resource use metrics shared with the patient that are relevant to the patient's goals of care and treatment preferences:: Yes EMR reviewed. Patient is S/P G-J tube placement on 08/07 with plan to start enteral feedings. PT and OT are recommending home with no home PT/OT needs. ELI MONTANO met with the patient and his zoymcv-lk-vma Dasha at bedside to discuss discharge planning needs. Dasha confirmed plan for the patient to either return to his own home or come to stay with her upon discharge. The patient will need Home Health Care and a Home Care Pharmacy arranged. CHARMAINE provided a HHC list for the patient and family to review for choices. Dasha also expressed interest in getting a Rx for an oral suction machine for the patient. CM assigned will continue to follow. SIGNATURE: Meghann Escobedo RN PATIENT NAME: Diana Thurston DATE: August 08, 2025 TIME: 11:41 AM [facility] 08-07-2025 Note HNO ID: [id number] Author: MEGHANN ESCOBEDO RN Service: Care Management Author Type: Registered Nurse Type: Care Mgt Initial Assessment Filed: 08/07/2025 12:55 Note Text: CARE MANAGEMENT: ASSESSMENT AND DISCHARGE PLAN SERVICE DATE: August 07, 2025 SERVICE TIME: 12:49 PM PCP: Price Key DO Primary Contact: Extended Emergency Contact Information Primary Emergency Contact: Kayy Palacio Mobile Relation: Daughter Secondary Emergency Contact: dasha olvera Relation: [id number]-Uiz Admission Status: Inpatient Insurance Provider: [facility] MEDICARE [facility] Discharge Planning requested by: Per Department Practice Potential Transition Plans Home, Home Care, Home Care Pharmacy, Home OT/PT, Longterm Facility/Intermediate Care Facility, To Be Determined Advance Directives Current Advance Directive: Health Care Power of Linking Machine Operator, Living Will In Chart: No Current Living Arrangements and Support Lives with: Alone Type of Residence: Mobile Home Does the patient have to climb stairs at home?: stairs outside the home Support: Children, Family members How do you manage to accomplish the following: Independent: Ambulation, Bathe/Shower, Dress, Meals/Meal Prep, Going to the bathroom, Medication Management, Transportation to appointments/community Current Services/Equipment Current Post-Acute Service(s): DME Current DME Type: Grab bars, Cane Discharge Planning Patient Goal(s): General wellness, Be able to go home, Increase strength [place] of Choice Explained: [place] of Choice Given: No Reason Not Given: Unable to complete with this assessment - revisit Are you interested in bedside delivery of your medications? No, Ratna Arenas. Discharge Planning Participant(s): Patient, Family Caregiver Assessment: Caregiver is ready, willing and able to meet the patient's needs as recommended by the inter-professional team: Other: See Comment (TBD) Transport at Discharge: Transportation Arrangements: To Be Determined Needs Prior to Discharge: Needs Prior to Discharge: To Be Determined, Facility or Agency Choices, Home Care Order, Nutrition Enteral Arrangements, OT/PT Evaluation, Other: See Comment (Medical Clearance) Post-Acute Discharge Plan: EMR reviewed and CM assessment complete. 80 year old patient with a history of oral and parotid gland cancer admitted for failure to thrive, weakness, dysphagia and dehydration. RN CM met with the patient, his brother and jtvaeq-ld-tup at bedside to discuss discharge planning needs. The patient's speech is somewhat garbled due to his inability to swallow secretions. He asked that CM discuss PLOF with his brother and MOLLY. The patient reportedly lives in a single level mobile home with three steps to enter and was independent [employer]. He still drives and uses a cane PRN to assist with mobility at baseline. Physical Therapy eval is pending. Occupational Therapy is recommending home with no home OT needs. GI consult is pending for possible PEG placement. CM assigned will continue to follow for potential discharge needs. SIGNATURE: Meghann Escobedo RN PATIENT NAME: Diana Thurston DATE: August 07, 2025 TIME: 12:48 PM [facility] 08-07-2025 Note HNO ID: [id number] Author: DAVEY CORDOBA MD Service: Hospital Medicine Author Type: Physician Type: Progress Notes Filed: 08/07/2025 12:35 Note Text: DEPARTMENT OF HOSPITAL MEDICINE PROGRESS NOTE SERVICE DATE: 08/07/2025 SERVICE TIME: 12:09 PM Hospital Medicine/Primary Attending: Davey Cordoba,* NIGHT AND WEEKEND COVERAGE: CROWDER COVERAGE: Days: [phone], please page attending physician. Nights: [phone], please page [place] [facility] Night coverage pager [phone]. Subjective INTERVAL HPI: Seen and examined. Patient was resting. Patient has dysarthria due to tongue/throat swelling from local treatment making it difficult to evaluate her system. He reports that difficulty swallowing, states food gets stuck in throat, he also reports difficulty managing his own secretions. Reports weight loss, has not been able to eat for the past 2 weeks. Denies chest pain, shortness of breath, or abdominal pain. Current Facility-Administered Medications Medication Dose Route Frequency carboxymethylcellulose sodium 2-5 drop (CELLUVISC) 2-5 drop LEFT EYE q 1 H PRN White Petrolatum-Mineral Oil 1 application ophthalmic ointment (LACRI-LUBE) 1 application BOTH EYES PRN enoxaparin 40 mg injection (LOVENOX) 40 mg SUBCUTANEOUS q 24 HR NaCl 0.9% iv flush bag 20 mL INTRAVENOUS PRN dextrose 5% in NaCl 0.9% iv infusion 75 mL/hr INTRAVENOUS CONTINUOUS ondansetron (PF) 4 mg injection (ZOFRAN) 4 mg INTRAVENOUS q 6 H PRN pantoprazole 40 mg injection (PROTONIX) 40 mg INTRAVENOUS DAILY (6 AM) thiamine 200 mg injection 200 mg INTRAVENOUS DAILY Objective PHYSICAL EXAM: BP 132/74 Pulse 59 Temp (Src) 97.5 (Oral) Resp 16 Ht 5' 6 (1.68m) Wt 182 lb 8.7 oz (82.8kg) SpO2 98% BMI 29.48 kg/(m2). O2 Therapy: Room Air Physical Exam Performed General, pleasant elderly male, alert Dysarthric speech due to tongue and throat swelling Defect to left jaw area, left neck due to previous surgery Large tongue, difficult to examine oropharynx CV RRR Lungs clear upper de jesus, poor inspiratory effort Abdomen soft No lower extremity edema Lines, Drains, and Airways Line Duration Peripheral 08/06/25 [facility] Right Antecubital 20 Gauge 1 day Peripheral 08/06/25 1658 Short Right Hand 20 Gauge <1 day Drain Duration External Collection Device 08/06/25 2030 [facility] <1 day Reviewed lines and needs to be continued: REASONS: Intravenous fluids DATA: Diagnostic tests reviewed for today's visit: Most recent imaging CBC, Coags, BMP, Mg, Phos Recent Labs 08/07/25 0619 08/06/25 2222 08/06/25 1913 08/06/25 1812 08/06/25 1545 08/04/25 1259 WBC 2.34* -- -- -- 5.25 4.59 HB 14.1 -- -- -- 17.1* 16.5 HCT 41.2 -- -- -- 50.7 47.5 PLT 125* -- -- -- 158 150 INR 1.2 1.2 -- -- -- -- NA 137 -- -- 131* 136 134* K 3.7 -- 4.2 -- 5.8* 3.9 CHLOR 98 -- -- 92* 93* 93* CO2 25 -- -- 24 BUN 37* -- -- 41* 43* 35* CREAT 1.09 -- -- 1.14 1.40* 1.31* GLUC 165* -- -- 84 99 89 CA 9.5 -- -- 9.4 10.6* 10.3* MG 2.0 -- -- -- 2.3 2.0 P 3.6 -- -- -- -- -- Liver Function, Amylase, AND Lipase Recent Labs 08/07/25 0619 08/06/25 1812 08/06/25 1649 08/06/25 1545 08/04/25 1259 TPROT 6.4 6.7 -- 7.9 7.3 ALB 3.5* 3.5* -- 4.1 4.2 ALT 23 -- -- 31 24 AST 24 -- -- 32 28 ALKPHOS 74 77 -- 91 87 TBILI 0.3 0.3 -- 0.4 0.4 LACT -- -- 1.9 2.1* -- HOSPITAL COURSE: Bower Laura Thurston is a 80 year old male former smoker presented with past medical history of 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 Patient reports food getting stuck in throat, choking up on food, he is having difficulty managing his oral secretions. Also complain of generalized weakness, difficulty managing at home. Currently chemotherapy is paused, he is currently getting weekly radiation for both left parotid tumor and base of tongue lesion. Last treatment on 08/04/2025. Patient has been seeing a dietitian, PEG placement was discussed at her last oncology visit. On presentation to the ED he was afebrile, vital signs were stable. Sodium 136, potassium 5.8, bicarb 25, BUN 43, creatinine 1.4, blood glucose 99. Calcium 10.6. LFTs normal range. CK 30. Lactate 2.1. Troponin slightly elevated 14, subsequent troponin 11. WBC 5.25, hemoglobin 17, hematocrit 50.7, platelets 158. Chest x-ray, opacity in lower right chest likely pleural fat/diaphragmatic elevation. No acute finding. Brain CT, left frontal craniectomy and cranioplasty with metallic plate. Neck CT, extensive postop finding from left pa (more content not included)... [facility] 08-06-2025 Note HNO ID: [id number] Author: AZALEA SALAS RT(Jan) Service: Radiology Author Type: Technologist Type: Progress Notes Filed: 08/06/2025 17:15 Note Text: Radiology Service Progress Note DATE OF SERVICE: August 06, 2025 TIME: 5:14 PM PATIENT IDENTITY VERIFICATION COMPLETED USING TWO (2) STANDARD IDENTIFIERS: Name and Date of confirmed by identification band. FALL SCREENING: Has the patient had 2 falls in the last year or 1 fall with injury or currently using an Ambulatory Assistive Device (Walker, Cane, Wheelchair, Crutches, etc.)? Emergency Room Patient: Screened in ED PATIENT GENDER DATA: Assigned male at PATIENT RELEVANT IMPLANT DATA REVIEWED: Yes PATIENT PRESENTS WITH AN IMPLANTABLE OR ATTACHED BREAKER HAND: No ALLERGIES: Reviewed and unchanged CONTRAST ALLERGY: N/A EXAM: CT -CONTRAST INDUCED NEPHROPATHY RISK FACTORS: Not applicable CREATININE: Creatinine Date Value Ref Range Status 08/06/2025 1.40 (H) 0.73 - 1.22 mg/dL Final 08/04/2025 1.31 (H) 0.73 - 1.22 mg/dL Final 07/25/2025 1.12 0.73 - 1.22 mg/dL Final Estimated Glomerular Filtration Rate Date Value Ref Range Status 08/06/2025 51 (L) >=60 mL/min/1.73m? Final Comment: Estimated Glomerular Filtration Rate (eGFR) is calculated using the 2020 CKD-EPI creatinine equation. This equation utilizes serum creatinine, sex, and age as parameters. The creatinine assay has traceable calibration to isotope dilution-mass spectrometry. Refer to KDIGO guidelines for clinical interpretation. In patients with unstable renal function, e.g. those with acute kidney injury, the eGFR may not accurately reflect actual GFR. P.O.C.T. RESULTS: POC done: Yes, See Lab Tab August 06, 2025 TREATMENT: N/A PERIPHERAL IV DATA: Inpatient - refer to LDA documentation RADIOLOGY DEPARTMENT: CT; Exam(s) Completed: Brain , Chest, and Neck . Anesthesia: No SIGNATURE: RT Marisol(R) PATIENT NAME: Bower E Cogar DATE: August 06, 2025 TIME: 5:14 PM [facility] 08-06-2025 Note SARS-COV-2 (AGENT OF COVID-19) RNA: Not detected INFLUENZA A RNA: Not detected INFLUENZA B RNA: Not detected RESPIRATORY SYNCYTIAL VIRUS (RSV) RNA: Not detected [facility] Comment on above: Performed By: #### [id number] ####[facility] [id number] [place] [address] [place] 08-01-2025 Note [facility] 08-01-2025 Note [facility] 08-01-2025 Note [facility] 07-31-2025 Note [facility] 07-26-2025 Note [facility] 07-21-2025 Note [facility] 07-17-2025 Note [facility] 07-17-2025 Note [facility] 07-11-2025 Note [facility] 07-11-2025 Note [facility] 07-07-2025 Note [facility] 07-04-2025 Note [facility] 07-04-2025 Note [facility] 06-28-2025 Note [facility] 06-28-2025 Note [facility] 06-23-2025 Note [facility] 06-20-2025 Note [facility] 06-20-2025 Note [facility] 06-20-2025 Note [facility] 06-20-2025 Note [facility] 06-07-2025 Note [facility] 06-07-2025 History of Present illness Narrative Radiation Oncology - New Patient/Consult Note PATIENT NAME: Diana Thurston PATIENT REQUESTING PROVIDER: Dr. Blake Martínez DIAGNOSIS: 1. 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 2. 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 HPI: 80 year old male who presents with above diagnosis, for an opinion regarding the role of radiation therapy in the management of the patient's disease. Final recommendations will be communicated back to the requesting physician by way of the shared medical record, or letter to requesting physician via US mail. 80 year old man who had left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 Patient History Smoking Tobacco Use: Some Days Smokeless Tobacco Use: Never Passive Exposure: Not on file FH family history includes Breast Cancer in his sister; Cancer in his sister; Heart Attack in his brother, brother, brother, and father; Lung Cancer in his sister. Review of Systems A review of systems was performed and was negative except as indicated above. Physical Exam There were no vitals taken for this visit. Constitutional: Well appearing, no acute distress, oriented, conversant Ears: Patient s ears were examined under the microscope given prior complex history of ear symptoms necessitating use. Left Pinna:normal External auditory canal:clear Tympanic membrane:with inferior perforation without retraction, middle ear dry Right Pinna:normal External auditory canal:Ear Canal impacted by cerumen. Removed under the microscope with Alligator forceps atraumatically. Tympanic membrane: intact without perforation with retraction onto promontory inferiorly Neuro: Extraocular movements intact V1-V3 symmetric to light touch symmetric shoulder shrung midline tongue protrusion symmetric palate elevation Facial nerve: Right: II/ House-Brackmann scale with synkinesis Left: I/ House-Brackmann scale Voice: normal with good projection and no evidence of dysphonia Respiratory Effort: unlabored without stridor or stertor Eyes: Extraocular movements intact, no lid or conjunctival inflammation or drainage Face: No gross lesions. With Right cheek fullness Nose: No obvious external deformity or lesions. Oral Cavity/Oropharynx: Mucous membranes are moist and pink, tongue without lesions, no trismus, no obvious mucosal lesions Neck: No masses, adenopathy or tenderness. Trachea midline. PROCEDURE: With the patient sitting upright, informed consent was obtained. The patient was re-identified and a time out made. The area over the lesion was anesthetized with 1 cc of 1% lidocaine with 1 100,000 epinephrine. We then used ultrasound to localize the lesion - 1) right level 2 node - Then under ultrasound guidance a 23-gauge needle was used in 4 passes with confirmation on ultrasound imaging of the needle within the lesion to obtain sample. The needles were used to create slides and then each was washed into CytoLyt and sent for pathology. 2) left parotid mass - then under ultrasound guidance a 16 gauger core needle was used in 4 passes with the tissue placed in formalin FINDINGS: Lesion successfully targeted -= right level 2 node and left parotid mass. Patient tolerated the procedure well, and there were no complications. Matt Olivo MD Audiometric Testing NA- pending Imaging Imaging personally reviewed. Agree with impression. NM PET/CT SKULL-THIGH INITIAL 02/14/2025 2:32 PM - Radiology, Oru In IMPRESSION PRIMARY: Hypermetabolic focus right tongue base/vallecular region compatible with neoplasm. NAS STATUS: Hypermetabolic right level IIa cervical lymph node likely metastatic lymph node METASTASES: No metabolically active distant metastases. OTHER FINDINGS: Hypermetabolic left parotid region mass CT NECK SOFT TISSUE W IVCON 02/02/2025 5:24 PM - Radiology, Oru In Impression IMPRESSION: Enhancing lesion in the right tongue base/vallecula with pathologic right level 2A node, concerning for primary neoplasm with nas metastasis. Recommend direct visualization and tissue sampling as clinical warranted. Small enhancing focus in the pre-epiglottic region just anterior to this may be related to the above, versus ectopic thyroid tissue. Large 51 mm irregular enhancing left parotid mass involving the superficial and deep lobes. Adjacent cortical thinning at the inferior left mastoid tip. 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 No prior imaging is available for review however if these become available, comparison for interval change can be made and an addendum issued at clinician request. In addition, MRI face protocol without and with contrast would be of value to assess for perineural extension along the left facial nerve. No left-sided cervical lymphadenopathy. Impression / Recommendations ASSESSMENT/PLAN: 1. 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 Cancer of base of tongue (HCC) - ICD9: 141.0, ICD10: C01 4. Personal history of tobacco use - ICD9: V15.82, ICD10: Z87.891 5. Tympanic membrane perforation, left - ICD9: 384.20, ICD10: H72.92 6. Hearing loss, unspecified hearing loss type, unspecified laterality - ICD9: 389.9, ICD10: H91.90 Scheduled for surgical resection next week. Otology to assist in lateral temporal bone resection - Discussed with patient that either Myself or Dr. Bhargav Melchor will perform the ear portion of the surgery, involving drilling of the temporal bone for resection of tumor and to expose the facial nerve. -- Informed patient about the surgical process, risk and expected hospital stay --- audiometric evaluation today at 1430 to obtain updated hearing status. Juaquin Batres MD Otology/Neurotology/Lateral Skull-Base Surgery Head and Neck [place] [facility] Medical Decision Making: Problems: Moderate: New problem with uncertain prognosis Data: Unique source(s) for external note(s) reviewed: 1 Unique test result(s) reviewed: 1 Unique test(s) ordered: 1 Independent interpretation of test from other physician/QHCP Risk: Minimal: Minimal risk from testing/treatment High: Decision on elective major surgery w/ risk factors Medical Decision Making Level: 5 - High Tobacco Use: Types: Cigarettes Was smoking cessation packet given? Patient Declined Was a referral initiated?Patient declined. documented in this encounter [facility] 04-27-2025 Note [facility] 04-25-2025 History of Present illness Narrative Radiology Service Progress Note PATIENT NAME: Diana Thurston DATE OF SERVICE: April 25, 2025 TIME: 12:03 PM PATIENT IDENTITY VERIFICATION COMPLETED USING TWO (2) IDENTIFIERS: Name and Date of confirmed by patient verbally. FALL SCREENING: Has the patient had 2 falls in the last year or 1 fall with injury or currently using an Ambulatory Assistive Device (Walker, Cane, Wheelchair, Crutches, etc.)? No PATIENT GENDER DATA: Assigned male at PATIENT RELEVANT IMPLANT DATA REVIEWED: Not Applicable PATIENT PRESENTS WITH AN IMPLANTABLE OR ATTACHED BREAKER HAND: No RADIOLOGY DEPARTMENT: General X-ray: Exam(s) Completed: Chest X-Ray PERIPHERAL IV DATA: Not applicable SIGNED BY: RT Campbell(R) April 25, 2025 12:03 PM documented in this encounter [facility] 04-25-2025 Note [facility] 04-25-2025 History and physical note Images from the original note were not included. [facility] HISTORY AND PHYSICAL EXAMINATION SERVICE DATE: 04/25/2025 SERVICE TIME: 9:17 AM PRIMARY CARE PHYSICIAN: Price Key DO Assessment Patient has the following medical conditions which may affect kim-operative course: Personal history of tobacco use Assessment: 0.25ppd/30+ years, states now just cigars occasionally, Chronic cough Assessment: CXR today, hx of bronchitis last month, pt states symptoms have resolved IMPRESSION: Elevation of the right lateral hemidiaphragm with chronic right basilar and lateral pleural thickening GERD (gastroesophageal reflux disease) Assessment: otc rx as needed Essential hypertension Assessment: controlled on rx Last 14 BP Last 14 Encounter BP Readings: Date: BP: 04/25/2025 148/72 04/11/2025 152/70 02/27/2025 151/92 02/27/2025 151/92 02/07/2025 113/74 01/18/2025 132/80 06/02/2024 133/83 05/20/2024 135/74 05/12/2024 108/66 05/10/2024 135/84 05/09/2024 150/76 04/29/2024 131/54 04/27/2024 133/67 04/27/2024 142/87 Type 2 diabetes mellitus with hyperlipidemia (HCC) Assessment: diet controlled DM, c/w statin, last A1c below found in clinic sync Hgb A1c [4.3-6.4 %] 5.7 % (04/18/25 3:11 PM) Elevated LFTs Assessment: hx Albumin (g/dL) Date Value 06/02/2024 3.6 (L) Bilirubin, Total (mg/dL) Date Value 06/02/2024 1.0 Alkaline Phosphatase (U/L) Date Value 06/02/2024 108 AST (U/L) Date Value 06/02/2024 36 ALT (U/L) Date Value 06/02/2024 59 (H) Protein, Total (g/dL) Date Value 06/02/2024 6.5 Common bile duct dilation Assessment: s/p stent Duodenal diverticulum Assessment: incidental finding CT 2023 Myelolipoma of left adrenal gland Assessment: PET scan showed no uptake, incidental finding on CT History of skin cancer Assessment: s/p excision cheek, pt again had lesion noted on cheek, recommended f/u with dermatology to re-evaulate Benign prostatic hyperplasia with nocturia Assessment: no current tx, >1 nocturia Obesity, Class I, BMI 30-34.9 Assessment: Body mass index is 34.21 kg/m . Primary cancer of parotid gland (HCC) Assessment: history of left parotid mass for a few years -apparently per outside notes from Dr. Desouza he saw an ENT and had a biopsy of this left parotid mass and was told it needed to be removed. He did not pursue that. 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 Pericardial effusion (HCC) Assessment:hx, No pericardial effusion noted on recent PET scan 01/2025 . 04/2024 echo PERICARDIUM There is a small pericardial effusion adjacent to the right ventricle measuring 0.4 cm, a small pericardial effusion adjacent to the left ventricle measuring 0.8 cm and a small pericardial effusion adjacent to the right atrium measuring 0.7 cm. There is an epicardial fat pad. ANESTHESIA FINDINGS: Intubation History: No history of difficult intubation Significant Anesthesia Considerations: none Airway History: No history of difficult airway Kim Activity Status Index: METS: Climb a flight of stairs or walk up a hill (5.50 METs) DASI Score: 5.5 Patient denies any chest pain or undue shortness of breath with the above physical activity. Clinical Frailty Scale: 3. Well, with treated comorbid disease STOP-Bang Score: Snores loudly Has or is being treated for high blood pressure Patient over 50 years old Has a large neck Male patient Denies feeling tired, fatigued, or sleepy during the daytime Has not been observed to stop breathing or choking/gasping during sleep BMI less than or equal to 35 kg/m^2 STOP-Bang Score: 5 [id number] Score: Age: >=75 Sex: male CHF history: No Hypertension history: Yes Stroke/TIA/thromboembolism history: No Vascular disease history: No Diabetes history: No [id number] Score: 3 ARISCAT Score: Age: 51-80 Preoperative SpO2: >=96% Respiratory infection in the last month: No Preoperative anemia: No Surgical incision: peripheral Duration of surgery: >3 hrs Emergency procedure: No ARISCAT Score: 26 I - PHYSICAL EVALUATION AIRWAY Patient intubated: No. Tracheostomy tube not present Mallampati: IV. TM distance: >3 FB. Neck ROM: full ROM without neurological symptoms. Mouth opening: adequate. Short neck: no. Thick neck: no Phillips present: no Lip Bite Test: I Microretrognathia/Micronagthia/Rec essed Chin: No DENTAL Dental findings: teeth intact. Dentures, upper: complete. II - ANESTHESIA PLAN Anesthetic Plan: other Beta Mari Monitoring Plan Post Procedure Analgesic Plan Prepared for Surgery: optimally prepared for surgery. CXR-reviewed, okay to proceed-JL CONSULTS: Patient does not require consults for optimization at this time Planned Anesthetic: other anesthesia choice The Following Tests/Procedures Have Been Initiated: Orders Placed This Encounter XR CHEST 2V FRONTAL/LAT Standing Status: Future Number of Occurrences: 1 Expected Date: 04/25/2025 Expiration Date: 05/25/2026 REASON FOR VISIT: Diana Thurston is a 79 year old male who is scheduled for Procedure(s): REMOVAL OF TUMOR; TEMPORAL BONE (Left) DISSECTION NECK MODIFIED RADICAL (Left) EXCISION OF PAROTID TUMOR/GLAND TOTAL EN BLOC REMOVAL W/ SACRIFICE OF FACIAL NERVE (Left) FREE FASCIAL FLAP W/ MICROVASCULAR ANASTOMOSIS LOWER EXTREMITY (Pending) NERVE GRAFT HEAD/NECK = OR < 4CM LENGTH (Pending) GRAFT REGIONAL MUSCLE TRANSFER FOR FACIAL NERVE PARALYSIS (Left) at the request of Dr. Matt Olivo for consultation. My final recommendation will be communicated back to the requesting physician by way of shared medical record or letter. Subjective The patient has the following: COVID-19 Immunization Status This patient has no relevant Health Maintenance data. 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 04/11/25, Dr. Matt Olivo HPI: Diana Thurston is a 79 year old male presenting with history of left parotid mass for a few years -apparently per outside notes from Dr. Desouza he saw an ENT and had a biopsy of this left parotid mass and was told it needed to be removed. He did not pursue that. 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 He now has seen Dr. Lynn who noted a right BOT mass and right neck node and a left parotid mass. REVIEW OF SYSTEMS: General: No weight loss, malaise or fevers. Neurological: No history of TIA's, stroke, RADIO DISC JOCKEY tumor, impaired sensorium, hemiplegia, paraplegia or quadraplegia. No neurological symptoms or problems. Respiratory: Positive for: bronchitis (last month) and tobacco use (cigars occassionally). Negative for: asthma, current cough, dyspnea, pneumonia within 6 weeks, URI < 2 weeks and obstructive sleep apnea. Cardiovascular: Positive for: arrhythmia (PAC's), hyperlipidemia (on rx) and hypertension (on rx) Negative for: abdominal aortic aneurysm, AICD/PPM, angina, anticoagulation therapy, atrial fibrillation, CAD, chest pain, CHF, congenital heart defect, DVT/PE, recent [place], murmur/valvular heart disease, PTCA, PVD, open heart surgery and valve surgery. GI: Positive for: GERD (otc rx as needed) Negative for: abdominal pain, dysphagia, hepatitis, irritable bowel syndrome, inflammatory bowel disease, liver disease, nausea, pancreatitis, vomiting and ETOH >2 drinks/day. : Positive for: nocturia >1 time per night. Negative for: urinary incontinence, renal failure and urinary tract infection. Endocrine: No history of diabetes. Has not taken steroids within the past 30 days. No history of endocrinological symptoms or problems. Hematology: No history of bleeding or clotting disorder. Patient is not taking anti-coagulation or platelet medications. No history of hematological symptoms or problems. Oncology: See HPI. +bladder CA s/p laser +skin CA s/p excision, left cheek, returned Psych: No history of psychiatric symptoms or problems. Musculoskeletal: Negative for joint pain or swelling, back pain or muscle pain. Skin: Negative for lesions, rash and itching. Implanted Devices: No implanted devices. 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 PAST SURGICAL HISTORY Procedure Laterality Date PAST SURGICAL HISTORY OF 1966 head surgery PAST SURGICAL HISTORY OF 02/07/2025 Left parotid gland/right neck lymph node FNA REMOVAL GALLBLADDER 2023 FAMILY HISTORY Problem Relation Age of Onset Heart Attack Father Cancer Sister Breast Cancer Sister Lung Cancer Sister Heart Attack Brother Heart Attack Brother Heart Attack Brother Social History Tobacco Use Smoking status: Some Days Current packs/day: 0.25 Average packs/day: 0.5 packs/day for 34.6 years (15.6 ttl pk-yrs) Types: Cigarettes Start date: 1963 Last attempt to quit: 1991 Smokeless tobacco: Never Vaping Use Vaping status: Never Used Substance Use Topics Alcohol use: Not Currently Drug use: Never Prior to Admission medications as of 04/27/25 1135 Medication Sig Last Dose Taking hydroCHLOROthiazide 25 mg tablet Take 25 mg by mouth every morning. Yes pravastatin (PRAVACHOL) 40 mg tablet Take 40 mg by mouth daily at bedtime. Yes losartan (COZAAR) 50 mg tablet Take 50 mg by mouth once daily. Yes No medication comments found. ALLERGIES No Known Allergies Objective PHYSICAL EXAM: General: alert and oriented (x3), healthy appearance and obese. Pertinent negatives noted - not distressed. Skin: normal color, no rash or lesions. HEENT: EOM intact and pupils equal round. Pertinent negatives noted - no carotid bruit. Cardiovascular: regular rate and rhythm, normal S1 and S2, no rub, murmurs, or gallop. Respiratory: normal breath sounds, no wheezes or crackles. No chest wall deformity or tenderness. Abdomen: soft. Pertinent negatives noted - not tender. Extremities: no deformity, no edema or tenderness, no joint swelling or clubbing. Neurological: normal cognition and motor skills. Gait normal. No weakness or sensory deficit. PAIN ASSESSMENT: VITALS: BP 148/72 Pulse 52 Temp (Src) 97.1 (Temporal) Resp 16 Ht 5' 6.5 (1.69m) Wt 215 lb 3.2 oz (97.6kg) SpO2 99% BMI 34.22 kg/(m^2). Diagnostic tests reviewed for today's visit: Lab Value Units Date High Low HB 16.6 g/dL 04/25/2025 17.0 13.0 HCT 48.3 % 04/25/2025 51.0 39.0 WBC 16.99 k/uL 04/25/2025 11.00 3.70 PLT 272 k/uL 04/25/2025 400 150 NA 136 mmol/L 04/25/2025 144 136 K 3.5 mmol/L 04/25/2025 5.1 3.7 GLUC 158 mg/dL 04/25/2025 99 74 BUN 28 mg/dL 04/25/2025 24 9 CREAT 1.27 mg/dL 04/25/2025 1.22 0.73 PTSEC No results within date range. INR No results within date range. APTT No results within date range. ALT No results within date range. AST No results within date range. TBILI No results within date range. TSH No results within date range. Lab Value Units Date High Low HCGQT No results within date range. UHCG No results within date range. HCG, BODY* No results within date range. Lab Value Units Date High Low ABORHD No results within date range. ABSCREEN No results within date range. No results found for: HBA1C Recent Results (from the past 8760 hours) ECG COMPLETE Collection Time: 04/25/25 9:06 AM Result Value Ventricular Rate 56 Atrial Rate 56 P-R Interval 134 QRS Duration 80 QT Interval 448 QTC Calculation (Bazett) 432 Calculated P [place] 71 Calculated R [place] 32 Calculated T [place] 61 Impression SINUS BRADYCARDIA WITH PREMATURE ATRIAL COMPLEXES OTHERWISE NORMAL ECG Confirmed by MD DEMETRIS, QARAB ([id number]) on 04/26/2025 10:58:28 AM No results found for this or any previous visit (from the past 92680 hours). Instructions Given to Patient: Instructions located in the after visit summary. Patient given verbal and written preop instructions and voices comprehension and compliance. SIGNATURE: Mary Carmen Stephens APRN.CNP PATIENT NAME: Diana Thurston DATE: April 25, 2025 TIME: 8:47 AM PAGER/CONTACT #: [facility] 04-25-2025 History and physical note Images from the original note were not included. [facility] HISTORY AND PHYSICAL EXAMINATION SERVICE DATE: 04/25/2025 SERVICE TIME: 9:17 AM PRIMARY CARE PHYSICIAN: Price Key, Assessment Patient has the following medical conditions which may affect kim-operative course: Personal history of tobacco use Assessment: 0.25ppd/30+ years, states now just cigars occasionally, Chronic cough Assessment: CXR today, hx of bronchitis last month, pt states symptoms have resolved IMPRESSION: Elevation of the right lateral hemidiaphragm with chronic right basilar and lateral pleural thickening GERD (gastroesophageal reflux disease) Assessment: otc rx as needed Essential hypertension Assessment: controlled on rx Last 14 BP Last 14 Encounter BP Readings: Date: BP: 04/25/2025 148/72 04/11/2025 152/70 02/27/2025 151/92 02/27/2025 151/92 02/07/2025 113/74 01/18/2025 132/80 06/02/2024 133/83 05/20/2024 135/74 05/12/2024 108/66 05/10/2024 135/84 05/09/2024 150/76 04/29/2024 131/54 04/27/2024 133/67 04/27/2024 142/87 Type 2 diabetes mellitus with hyperlipidemia (HCC) Assessment: diet controlled DM, c/w statin, last A1c below found in clinic sync Hgb A1c [4.3-6.4 %] 5.7 % (04/18/25 3:11 PM) Elevated LFTs Assessment: hx Albumin (g/dL) Date Value 06/02/2024 3.6 (L) Bilirubin, Total (mg/dL) Date Value 06/02/2024 1.0 Alkaline Phosphatase (U/L) Date Value 06/02/2024 108 AST (U/L) Date Value 06/02/2024 36 ALT (U/L) Date Value 06/02/2024 59 (H) Protein, Total (g/dL) Date Value 06/02/2024 6.5 Common bile duct dilation Assessment: s/p stent Duodenal diverticulum Assessment: incidental finding CT 2023 Myelolipoma of left adrenal gland Assessment: PET scan showed no uptake, incidental finding on CT History of skin cancer Assessment: s/p excision cheek, pt again had lesion noted on cheek, recommended f/u with dermatology to re-evaulate Benign prostatic hyperplasia with nocturia Assessment: no current tx, >1 nocturia Obesity, Class I, BMI 30-34.9 Assessment: Body mass index is 34.21 kg/m . Primary cancer of parotid gland (HCC) Assessment: history of left parotid mass for a few years -apparently per outside notes from Dr. Desouza he saw an ENT and had a biopsy of this left parotid mass and was told it needed to be removed. He did not pursue that. 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 Pericardial effusion (HCC) Assessment:hx, No pericardial effusion noted on recent PET scan 01/2025 . 04/2024 echo PERICARDIUM There is a small pericardial effusion adjacent to the right ventricle measuring 0.4 cm, a small pericardial effusion adjacent to the left ventricle measuring 0.8 cm and a small pericardial effusion adjacent to the right atrium measuring 0.7 cm. There is an epicardial fat pad. ANESTHESIA FINDINGS: Intubation History: No history of difficult intubation Significant Anesthesia Considerations: none Airway History: No history of difficult airway Kim Activity Status Index: METS: Climb a flight of stairs or walk up a hill (5.50 METs) DASI Score: 5.5 Patient denies any chest pain or undue shortness of breath with the above physical activity. Clinical Frailty Scale: 3. Well, with treated comorbid disease STOP-Bang Score: Snores loudly Has or is being treated for high blood pressure Patient over 50 years old Has a large neck Male patient Denies feeling tired, fatigued, or sleepy during the daytime Has not been observed to stop breathing or choking/gasping during sleep BMI less than or equal to 35 kg/m^2 STOP-Bang Score: 5 [id number] Score: Age: >=75 Sex: male CHF history: No Hypertension history: Yes Stroke/TIA/thromboembolism history: No Vascular disease history: No Diabetes history: No [id number] Score: 3 ARISCAT Score: Age: 51-80 Preoperative SpO2: >=96% Respiratory infection in the last month: No Preoperative anemia: No Surgical incision: peripheral Duration of surgery: >3 hrs Emergency procedure: No ARISCAT Score: 26 I - PHYSICAL EVALUATION AIRWAY Patient intubated: No. Tracheostomy tube not present Mallampati: IV. TM distance: >3 FB. Neck ROM: full ROM without neurological symptoms. Mouth opening: adequate. Short neck: no. Thick neck: no Phillips present: no Lip Bite Test: I Microretrognathia/Micronagthia/Rec essed Chin: No DENTAL Dental findings: teeth intact. Dentures, upper: complete. II - ANESTHESIA PLAN Anesthetic Plan: other Beta Mari Monitoring Plan Post Procedure Analgesic Plan Prepared for Surgery: optimally prepared for surgery. CXR-reviewed, okay to proceed-JL CONSULTS: Patient does not require consults for optimization at this time Planned Anesthetic: other anesthesia choice The Following Tests/Procedures Have Been Initiated: Orders Placed This Encounter XR CHEST 2V FRONTAL/LAT Standing Status: Future Number of Occurrences: 1 Expected Date: 04/25/2025 Expiration Date: 05/25/2026 REASON FOR VISIT: Diana Thurston is a 79 year old male who is scheduled for Procedure(s): REMOVAL OF TUMOR; TEMPORAL BONE (Left) DISSECTION NECK MODIFIED RADICAL (Left) EXCISION OF PAROTID TUMOR/GLAND TOTAL EN BLOC REMOVAL W/ SACRIFICE OF FACIAL NERVE (Left) FREE FASCIAL FLAP W/ MICROVASCULAR ANASTOMOSIS LOWER EXTREMITY (Pending) NERVE GRAFT HEAD/NECK = OR < 4CM LENGTH (Pending) GRAFT REGIONAL MUSCLE TRANSFER FOR FACIAL NERVE PARALYSIS (Left) at the request of Dr. Matt Olivo for consultation. My final recommendation will be communicated back to the requesting physician by way of shared medical record or letter. Subjective The patient has the following: COVID-19 Immunization Status This patient has no relevant Health Maintenance data. 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 04/11/25, Dr. Matt Olivo HPI: Diana Thurston is a 79 year old male presenting with history of left parotid mass for a few years -apparently per outside notes from Dr. Desouza he saw an ENT and had a biopsy of this left parotid mass and was told it needed to be removed. He did not pursue that. 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 He now has seen Dr. Lynn who noted a right BOT mass and right neck node and a left parotid mass. REVIEW OF SYSTEMS: General: No weight loss, malaise or fevers. Neurological: No history of TIA's, stroke, RADIO DISC JOCKEY tumor, impaired sensorium, hemiplegia, paraplegia or quadraplegia. No neurological symptoms or problems. Respiratory: Positive for: bronchitis (last month) and tobacco use (cigars occassionally). Negative for: asthma, current cough, dyspnea, pneumonia within 6 weeks, URI < 2 weeks and obstructive sleep apnea. Cardiovascular: Positive for: arrhythmia (PAC's), hyperlipidemia (on rx) and hypertension (on rx) Negative for: abdominal aortic aneurysm, AICD/PPM, angina, anticoagulation therapy, atrial fibrillation, CAD, chest pain, CHF, congenital heart defect, DVT/PE, recent [place], murmur/valvular heart disease, PTCA, PVD, open heart surgery and valve surgery. GI: Positive for: GERD (otc rx as needed) Negative for: abdominal pain, dysphagia, hepatitis, irritable bowel syndrome, inflammatory bowel disease, liver disease, nausea, pancreatitis, vomiting and ETOH >2 drinks/day. : Positive for: nocturia >1 time per night. Negative for: urinary incontinence, renal failure and urinary tract infection. Endocrine: No history of diabetes. Has not taken steroids within the past 30 days. No history of endocrinological symptoms or problems. Hematology: No history of bleeding or clotting disorder. Patient is not taking anti-coagulation or platelet medications. No history of hematological symptoms or problems. Oncology: See HPI. +bladder CA s/p laser +skin CA s/p excision, left cheek, returned Psych: No history of psychiatric symptoms or problems. Musculoskeletal: Negative for joint pain or swelling, back pain or muscle pain. Skin: Negative for lesions, rash and itching. Implanted Devices: No implanted devices. 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 PAST SURGICAL HISTORY Procedure Laterality Date PAST SURGICAL HISTORY OF 1965 head surgery PAST SURGICAL HISTORY OF 02/07/2025 Left parotid gland/right neck lymph node FNA REMOVAL GALLBLADDER 2023 FAMILY HISTORY Problem Relation Age of Onset Heart Attack Father Cancer Sister Breast Cancer Sister Lung Cancer Sister Heart Attack Brother Heart Attack Brother Heart Attack Brother Social History Tobacco Use Smoking status: Some Days Current packs/day: 0.25 Average packs/day: 0.5 packs/day for 34.6 years (15.6 ttl pk-yrs) Types: Cigarettes Start date: 1963 Last attempt to quit: 1991 Smokeless tobacco: Never Vaping Use Vaping status: Never Used Substance Use Topics Alcohol use: Not Currently Drug use: Never Prior to Admission medications as of 04/27/25 1135 Medication Sig Last Dose Taking hydroCHLOROthiazide 25 mg tablet Take 25 mg by mouth every morning. Yes pravastatin (PRAVACHOL) 40 mg tablet Take 40 mg by mouth daily at bedtime. Yes losartan (COZAAR) 50 mg tablet Take 50 mg by mouth once daily. Yes No medication comments found. ALLERGIES No Known Allergies Objective PHYSICAL EXAM: General: alert and oriented (x3), healthy appearance and obese. Pertinent negatives noted - not distressed. Skin: normal color, no rash or lesions. HEENT: EOM intact and pupils equal round. Pertinent negatives noted - no carotid bruit. Cardiovascular: regular rate and rhythm, normal S1 and S2, no rub, murmurs, or gallop. Respiratory: normal breath sounds, no wheezes or crackles. No chest wall deformity or tenderness. Abdomen: soft. Pertinent negatives noted - not tender. Extremities: no deformity, no edema or tenderness, no joint swelling or clubbing. Neurological: normal cognition and motor skills. Gait normal. No weakness or sensory deficit. PAIN ASSESSMENT: VITALS: BP 148/72 Pulse 52 Temp (Src) 97.1 (Temporal) Resp 16 Ht 5' 6.5 (1.69m) Wt 215 lb 3.2 oz (97.6kg) SpO2 99% BMI 34.22 kg/(m^2). Diagnostic tests reviewed for today's visit: Lab Value Units Date High Low HB 16.6 g/dL 04/25/2025 17.0 13.0 HCT 48.3 % 04/25/2025 51.0 39.0 WBC 16.99 k/uL 04/25/2025 11.00 3.70 PLT 272 k/uL 04/25/2025 400 150 NA 136 mmol/L 04/25/2025 144 136 K 3.5 mmol/L 04/25/2025 5.1 3.7 GLUC 158 mg/dL 04/25/2025 99 74 BUN 28 mg/dL 04/25/2025 24 9 CREAT 1.27 mg/dL 04/25/2025 1.22 0.73 PTSEC No results within date range. INR No results within date range. APTT No results within date range. ALT No results within date range. AST No results within date range. TBILI No results within date range. TSH No results within date range. Lab Value Units Date High Low HCGQT No results within date range. UHCG No results within date range. HCG, BODY* No results within date range. Lab Value Units Date High Low ABORHD No results within date range. ABSCREEN No results within date range. No results found for: HBA1C Recent Results (from the past 8760 hours) ECG COMPLETE Collection Time: 04/25/25 9:06 AM Result Value Ventricular Rate 56 Atrial Rate 56 P-R Interval 134 QRS Duration 80 QT Interval 448 QTC Calculation (Bazett) 432 Calculated P [place] 71 Calculated R [place] 32 Calculated T [place] 61 Impression SINUS BRADYCARDIA WITH PREMATURE ATRIAL COMPLEXES OTHERWISE NORMAL ECG Confirmed by MD DEMETRIS, QAESTIVEN ([id number]) on 04/26/2025 10:58:28 AM No results found for this or any previous visit (from the past 60622 hours). Instructions Given to Patient: Instructions located in the after visit summary. Patient given verbal and written preop instructions and voices comprehension and compliance. SIGNATURE: Mary Carmen Stephens APRN.CNP PATIENT NAME: Diana Thurston DATE: April 25, 2025 TIME: 8:47 AM PAGER/CONTACT #: documented in this encounter [facility] 04-25-2025 Instructions Mary Carmen Stephens APRN.CNP - 04/25/2025 8:47 AM EDT Images from the original note were not included. [facility] PATIENT PREOPERATIVE INSTRUCTIONS Matt Olivo MD has scheduled you for your procedure at this surgery center: [facility] Scheduling Office: [phone] --[address] [place] [address]. Please read below carefully for your personalized instructions. Dietary Restrictions: - No solid food after midnight. - You may have 12 ounces of clear liquids (water, clear juices such as apple juice or gatorade, carbonated beverages, clear tea, black coffee, jello) until 2 hours before scheduled arrival at facility. Medications: Unless instructed differently below, stay on all of your medications until your surgery. If you start any new medications after today's visit, please contact your surgeon. Pre-Surgery Med Instructions Medication Instructions hydroCHLOROthiazide 25 mg tablet Do not take the day of surgery pravastatin (PRAVACHOL) 40 mg tablet If you normally take this medication in the morning, take the morning of surgery. losartan (COZAAR) 50 mg tablet If you normally take this medication in the morning, take the morning of surgery. If you take any medications for erectile dysfunction-Cialis (Tadalafil), Levitra, Staxyn (Vardenafil) Viagra (Sildenenafil please do not take these for 48 hours before surgery. If you start any new medications after today's visit, please contact the surgeon's office. If you are currently using a skik-iri-rhzk injectable or oral medication for diabetes or weight loss such as Dulaglutide (Trulicity), Exenatide (Byetta, Bydureon), Liraglutide (Victoza, Saxenda), Semaglutide (Ozempic, Wegovy, Rybelsus), or Tirzepatide (Mounjaro), the medicine should be stopped at least 7 days before surgery. These medicines can cause food to remain in your stomach for a very long time and increase the risks from surgery and anesthesia. Not stopping the medication for a long enough time may result in your surgery being rescheduled. Blood Thinning Medications: - Stop NSAIDS (Ibuprofen, Advil, Aleve, Motrin, Celebrex, Mobic, etc.) 7 days before surgery, as directed by your surgeon. - Stop Aspirin 7 days before surgery, as directed by your surgeon. - Stop ALL herbal and dietary supplements 7 days before surgery. - You may take Tylenol (Acetaminophen) or any of your pain medications that do not contain aspirin or NSAIDS as needed. Important Reminders: - Candy, mints, and tobacco products are NOT permitted the morning of surgery. - Hearing aids, dentures and glasses may be worn the morning of surgery. - NO jewelry, body piercings, makeup, hairpins or contacts are to be worn the day of surgery. If you develop symptoms such as a fever, cold, or flu, or have other changes to your health within TWO DAYS of scheduled surgery or the morning of surgery, please contact the surgery center above. Personal Belongings: -Please have photo ID and insurance cards. -If you do not have a copy of advance directives on file with us, please bring a copy with you on the day of surgery. - Leave ALL valuables and money at home or with family members. - Please bring high-quality footwear, such as sneakers, to the hospital for ambulating post-surgery. For Outpatient Procedures: - YOU MUST HAVE A RESPONSIBLE DETONATOR MAKER TAKE YOU HOME. A RADIAL DRILL PRESS SET UP OPERATOR OR HOUSE MOVER SUPERVISOR CANNOT BE MADE A RESPONSIBLE DETONATOR MAKER. - We recommend that a responsible person stays with you overnight to take care of you. - You cannot stay in a hotel alone after outpatient surgery. You will not be permitted to have your surgery, if you do not have someone to take care of you. Arrival Time for Surgery: - To obtain your arrival time for surgery, call your physician's office the day before your surgery. - If you have received different instructions about finding out your arrival time from your surgeon, please follow those instructions. - If your surgery is scheduled for Thursday, call the Thursday before. Your surgeon s crew scheduler will tell you what time to call the office. - If you have not reached the departmental crew scheduler by 5 P.M., call [phone] after 5 P.M. the day before your surgery. Please be aware that emergency situations arise, which may delay or change your surgical time. If this happens, we will notify you as soon as possible and regret any inconvenience. If you already have an Advance Directive, please fax a copy to [phone] or email to for it to be added to your chart. If you do not have an Advance Directive, you can find the appropriate form and more information at [email or web address]. We recommend that you complete the Advance Directive form found on the website and bring it with you the day of your surgery. It can be witnessed and scanned into your chart that day. Mary Carmen Stephens APRN.CNP documented in this encounter [facility] 04-14-2025 Telephone encounter Note Person Calling: Patient's daughter Kayy Reason for Call: Calling because pt saw Dr. Olivo previous , and she was calling to get an update on surgery (if it was approved or not) Pt Phone #: [phone] Pharmacy Name and # : Pt last seen: Visit date not found Pamela Hernandez [facility] 04-14-2025 Miscellaneous Notes Person Calling: Patient's daughter Kayy Reason for Call: Calling because pt saw Dr. Olivo previous , and she was calling to get an update on surgery (if it was approved or not) Pt Phone #: [phone] Pharmacy Name and # : Pt last seen: Visit date not found Pamela Hernandez documented in this encounter [facility] 04-13-2025 Note [facility] 04-11-2025 Note [facility] 04-11-2025 History of Present illness Narrative [facility] Consult This consult was requested by Blake Martínez DO for an opinion regarding left parotid mass, right base of tongue mass. My final recommendations will be communicated to the requesting provider by way of shared EMR or letter via the [place] mail. HPI: Diana Thurston is a 79 year old male presenting with history of left parotid mass for a few years -apparently per outside notes from Dr. Desouza he saw an ENT and had a biopsy of this left parotid mass and was told it needed to be removed. He did not pursue that. 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 He now has seen Dr. Lynn who noted a right BOT mass and right neck node and a left parotid mass which had grown a significant amount. The patient reports that the parotid mass has grown significantly since its initial appearance and is now causing symptoms, including diplopia when looking to the left and inability to close his left eye. He also experiences involuntary jaw movements in the evenings and has a persistent cough, which he was told is due to the growth. He denies dysphagia or odynophagia. He has a history of otorrhea, which resolved after antibiotic treatment. He also reports significant weight loss, from 250 lbs to 207 lbs, but has recently gained 2 lbs, attributing the weight gain to increased appetite. 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 He also has a metal plate in his head from a previous accident in 1965, which has complicated imaging studies. 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 He denies any recent falls or balance issues. 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 (Patient not taking: Reported on 04/11/2025) hydroCHLOROthiazide 25 mg tablet Take 25 mg by mouth every morning. pravastatin (PRAVACHOL) 40 mg tablet Take 40 mg by mouth daily at bedtime. losartan (COZAAR) 50 mg tablet Take 50 mg by mouth once daily. 3 No current facility-administered medications for this visit. ALLERGIES No Known Allergies FAMILY HISTORY Problem Relation Age of Onset Heart Attack Father Cancer Sister Breast Cancer Sister Lung Cancer Sister Heart Attack Brother Heart Attack Brother Heart Attack Brother Social History Tobacco Use Smoking status: Former Current packs/day: 0.25 Average packs/day: 0.5 packs/day for 34.5 years (15.6 ttl pk-yrs) Types: Cigarettes Start date: 1963 Quit date: 1991 Smokeless tobacco: Never Vaping Use Vaping status: Never Used Substance Use Topics Alcohol use: Not Currently Drug use: Never REVIEW OF RADIOLOGICAL FILMS AND RECORDS: Ct neck from 02/02/25 - shows artifact from left frontal crani plate. There is a large infiltrative appearing left parotid mass 5 X 5 X 5 cm on my measurement, extends to deep parotid and near stylomastoid foramen. No left neck lymphadenopathy. There is a 2 cm right level 2 node that is pathologic appearing. There is also an infiltrative appearing right BOT mass that appears to extend across midline. Pet scan from 02/14/25 - IMPRESSION PRIMARY: Hypermetabolic focus right tongue base/vallecular region compatible with neoplasm. NAS STATUS: Hypermetabolic right level IIa cervical lymph node likely metastatic lymph node METASTASES: No metabolically active distant metastases. OTHER FINDINGS: Hypermetabolic left parotid region mass LABS: Needle biopsies on 02/10/25 FINAL DIAGNOSIS A - Parotid Gland, Left, FNA Positive for malignant cells. Basaloid neoplasm, favor salivary gland origin. (See comment.) B - Lymph Node, FNA - Right neck Positive for malignant cells. Squamous cell carcinoma. (See comment.) PHYSICAL EXAM: Vitals - There were no vitals taken for this visit. Constitutional - General Appearance: well developed, well nourished, without obvious deformities Communication: speaks with a normal voice without hoarseness Head & Face - Overall: no obvious scars, lesions or masses Parotid and submandibular glands:very large left sided parotid mass ~ 5 cm, it is firm and fixed, somewhat tender. Right parotid and bilateral submandibular glands are normal. Facial strength: some weakness on the left side - inability to close left eye fully - no scleral irritation, there is a small slit opening. Intact Camacho's. There is some reported diplopia on far left lateral gaze. Eyes - Ear, Nose, Mouth & Throat - Ears: both left and right external auditory canals and TM's are normal except for a small left sided Tm perforation that is clean without drainage. , no external deformities Nasal exam: mucosa is pink, septum is midline, visible turbinates are normal on anterior rhinoscopy Oral Cavity and oropharynx: mucosa, hard and soft palates, tongue, tonsil area, posterior pharyngeal wall, lips and gums are without lesions Neck: large left parotid mass as above. No left neck palpable nodes. Right firm level 2 ~ 2 cm node. Thyroid: no asymmetry, thyromegaly, or thyroid nodules on palpation Cranial Nerves: II: Pupillary reflexes normal III, IV, : EOM normal V: 1,2,3: normal sensation VII: Normal strength in all divisions IX, X: Normal voice, palatal elevation and sensation XI: Shoulder strength normal XII: Tongue mobility normal Larynx - mirror exam limited by gag. FLEXIBLE LARYNGOSCOPY Indications: tongue base mass. Larynx - mirror exam limited by gag. Procedure: With the patient sitting upright, informed consent was obtained. Topical anesthesia and vasoconstriction was applied with spray to the right side(s) of the nose. After waiting an appropriate period of time for anesthesia/vasoconstriction to become effective, a flexible laryngoscope was passed through the right side(s) of the nose and the nose, nasopharynx, oropharynx, hypopharynx and larnyx. The patient tolerated the procedure without complications. Findings: The nasal passageways and nasopharynx appear normal without edema or erythema. The oropharynx - shows a large ulcer in the midline BOT, touching base of epiglotis. . piriform sinuses, epiglottis, and aryepiglottic folds were examined and no masses, lesions, or ulcerations were seen. The true vocal cords move well to midline bilaterally. The airway is widely patent. Procedure: Right neck fine needle aspiration biopsy Left parotid core needle biopsy Informed Consent Consent Obtained: Written Ranger Protocol A moment to CARE was completed SIGN IN Sign in communication not applicable due to emergent procedure Personnel directly involved with the procedure wore the appropriate PPE Special Equipment: Yes Patient/Surrogate Stated/Verified: Patient name, Date of , Relevant allergies and Intended procedure TIME OUT Relevant labs, photos, and/or imaging studies have been reviewed. Intended patient and procedure match source documents. Consent obtained and matches the intended procedure Correct side/site marked and visible. Medications required for procedure verified. No fire risk assessment and interventions applicable. No implant(s) inserted. SIGN OUT All specimens correctly labeled and sent. All instruments, equipment, possible retained foreign bodies accounted for. The post-procedure POC has been communicated to the patient or surrogate. Post-procedure POC communicated to patient's multidisciplinary team (including bedside nurse for hospitalized patients). PROCEDURE NOTE: Recommended Ultrasound guided Fine needle aspiration biopsy right neck node. Left parotid core needle biopsy. Risks, benefits, personnel and alternatives were explained. The patient wished to proceed. S/he was re-identified and a time out obtained. PROCEDURE: Recommended Ultrasound guided Fine needle aspiration biopsy right neck nodes, left parotid core needle biopsy PREOPERATIVE DIAGNOSIS: right neck lymphadenopathy. Left parotid mass POSTOPERATIVE DIAGNOSIS: same INDICATIONS: right neck lymphadenopathy. Left parotid mass - obtain further tissue for diagnosis for HPV testing for the right level 2 node to confirm that tongue base is the primary for this and for further characterization of left parotid mass with core biopsy. ANESTHESIA: 1% lidocaine with 1:100,000 epinephrine PROCEDURE: With the patient sitting upright, informed consent was obtained. The patient was re-identified and a time out made. The area over the lesion was anesthetized with 1 cc of 1% lidocaine with 1 100,000 epinephrine. We then used ultrasound to localize the lesion - 1) right level 2 node - Then under ultrasound guidance a 23-gauge needle was used in 4 passes with confirmation on ultrasound imaging of the needle within the lesion to obtain sample. The needles were used to create slides and then each was washed into CytoLyt and sent for pathology. 2) left parotid mass - then under ultrasound guidance a 16 gauger core was attempted however the patient did not tolerate the left parotid core biopsy as he had severe ain even after lidocaine injection. FINDINGS: Lesion successfully targeted -= right level 2 node FNA with hope to be able to test it for HPV. Unable to tolerate left parotid core needle biopsy. Patient tolerated the procedure well, and there were no complications. 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 Unable to perform P16 or HPV testing on the right neck biopsy due to insufficient material. - Repeated right neck FNA today. - Present case at tumor board to discuss treatment sequencing and modalities. # Primary cancer of parotid gland (HCC) (C07) Biopsy results suggest a left parotid neoplasm. Tumor appears extensive, potentially involving facial nerve sacrifice. Patient experiences diplopia on leftward gaze, indicating possible skull base involvement. - attempted left parotid core - patient could not tolerate due to pain today - Present case at tumor board to discuss treatment sequencing and modalities. 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 Lesion was removed but recurred. # Personal history of tobacco use (Z87.891) Patient is a current smoker. Medical Decision Making: Problems: High: Illness/injury w/ threat to life/body function Data: Unique test result(s) reviewed: 2 Unique test(s) ordered: 2 Risk: Moderate: Moderate risk from testing/treatment Medical Decision Making Level: 4 - Moderate Matt Olivo MD Tobacco Use: Types: Cigarettes Was smoking cessation packet given? Patient Declined Was a referral initiated?Patient declined. documented in this encounter [facility] 04-11-2025 Note [facility] 03-13-2025 Hospital Discharge instructions Patient Education 03/12/2025 23:39:21 Bronchitis With Wheezing (Adult) Viral or Bacterial Bronchitis with Wheezing (Adult) Bronchitis is an infection of the air passages. It often occurs during a cold and is usually caused by a virus. Symptoms include cough with mucus (phlegm) and low-grade fever. This illness is contagious during the first few days and is spread through the air by coughing and sneezing, or by direct contact (touching the sick person and then touching your own eyes, nose, or mouth). If there is a lot of inflammation, air flow is restricted. The air passages may also go into spasm, especially if you have asthma. This causes wheezing and difficulty breathing even in people who do not have asthma. Bronchitis usually lasts 7 to 14 days. The wheezing should improve with treatment during the first week. An inhaler is often prescribed to relax the air passages and stop wheezing. Antibiotics will be prescribed if your doctor thinks there is also a secondary bacterial infection. Home care If symptoms are severe, rest at home for the first 2 to 3 days. When you go back to your usual activities, don't let yourself get too tired. Dont s'moke. Also avoid being exposed to secondhand smoke. You may use eehj-cpv-becstce medicine to control fever or pain, unless another medicine was prescribed. Note: If you have chronic liver or kidney disease or have ever had a stomach ulcer or gastrointestinal bleeding, talk with your healthcare provider before using these medicines. Also talk to your provider if you are taking medicine to prevent blood clots.) Aspirin should never be given to anyone younger than 18 years of age who is ill with a viral infection or fever. It may cause severe liver or brain damage. Your appetite may be poor, so a light diet is fine. Stay well hydrated by drinking 6 to 8 glasses of fluids per day (such as water, soft drinks, sports drinks, juices, tea, or soup). Extra fluids will help loosen secretions in the nose and lungs. Mkmm-jor-horfisp cough, cold, and sore-throat medicines will not shorten the length of the illness, but they may be helpful to reduce symptoms. (Note: Don't use decongestants if you have high blood pressure.) If you were given an inhaler, use it exactly as directed. If you need to use it more often than prescribed, your condition may be worsening. If this happens, contact your healthcare provider. If prescribed, finish all antibiotic medicine, even if you are feeling better after only a few days. Follow-up care Follow up with your healthcare provider, or as advised. If you had an X-ray or ECG (electrocardiogram), a specialist will review it. You will be notified of any new findings that may affect your care. If you are age 65 or older, or if you have a chronic lung disease or condition that affects your immune system, or you smoke, ask your healthcare provider about getting a pneumococcal vaccine and a yearly flu shot (influenza vaccine). When to seek medical advice Call your healthcare provider right away if any of these occur: Fever of 100.4 F (38 C) or higher, or as directed by your healthcare provider Coughing up increasing amounts of colored sputum Weakness, drowsiness, headache, facial pain, ear pain, or a stiff neck Call 911 Call 911 if any of these occur. Coughing up blood Worsening weakness, drowsiness, headache, or stiff neck Increased wheezing not helped with medication, shortness of breath, or pain with breathing [id number] [employer]. [address] [place] [address], [place] [address]. All rights reserved. This information is not intended as a substitute for professional medical care. Always follow your healthcare professional's instructions. Follow Up Care 03/12/2025 21:54:02 With:PRICE KEY DO Address: [address] [place] [address] [place] [address] [phone] When:2-4 days [facility] 03-12-2025 Note Discharge Instructions Thank you for allowing [facility] to assist you with your healthcare needs. The following is important discharge information regarding your hospital visit. Diagnosis from Today's Visit Bronchitis What to Do Next Instructions from Your Care Team No qualifying data available. Post Acute Orders No qualifying data available. You Need to Schedule the Following Appointments Follow Up with PRICE KEY DO When:Within 2-4 days Where:[address] [facility] [place] [address] [phone] Allergies No Known Medication Allergies Medications Please ask your primary doctor or pharmacist before taking any other medication not listed, including over the counter drugs, herbal medications, vitamins and or supplements as they may interact with your home medications. What How Much When Why Instructions Last Dose New amoxicillin-clavulanate (amoxicillin-clavulanate 875 mg-125 mg oral tablet) 1 tab(s) by mouth Every 12 hours Duration: 10 Days Take with a probiotic Printed Prescription Please take this list to your next doctor s visit. Bring all medications you take, including over the counter medications, herbals and other supplements with you to your doctor s visit. Patients and families are reminded to discard old lists and to update any records with all medication providers or retail pharmacies. Education Materials Viral or Bacterial Bronchitis with Wheezing (Adult) Bronchitis is an infection of the air passages. It often occurs during a cold and is usually caused by a virus. Symptoms include cough with mucus (phlegm) and low-grade fever. This illness is contagious during the first few days and is spread through the air by coughing and sneezing, or by direct contact (touching the sick person and then touching your own eyes, nose, or mouth). If there is a lot of inflammation, air flow is restricted. The air passages may also go into spasm, especially if you have asthma. This causes wheezing and difficulty breathing even in people who do not have asthma. Bronchitis usually lasts 7 to 14 days. The wheezing should improve with treatment during the first week. An inhaler is often prescribed to relax the air passages and stop wheezing. Antibiotics will be prescribed if your doctor thinks there is also a secondary bacterial infection. Home care If symptoms are severe, rest at home for the first 2 to 3 days. When you go back to your usual activities, don't let yourself get too tired. Dont s'moke. Also avoid being exposed to secondhand smoke. You may use auhs-owc-rqojwya medicine to control fever or pain, unless another medicine was prescribed. Note: If you have chronic liver or kidney disease or have ever had a stomach ulcer or gastrointestinal bleeding, talk with your healthcare provider before using these medicines. Also talk to your provider if you are taking medicine to prevent blood clots.) Aspirin should never be given to anyone younger than 18 years of age who is ill with a viral infection or fever. It may cause severe liver or brain damage. Your appetite may be poor, so a light diet is fine. Stay well hydrated by drinking 6 to 8 glasses of fluids per day (such as water, soft drinks, sports drinks, juices, tea, or soup). Extra fluids will help loosen secretions in the nose and lungs. Ywlc-qaw-ricnebs cough, cold, and sore-throat medicines will not shorten the length of the illness, but they may be helpful to reduce symptoms. (Note: Don't use decongestants if you have high blood pressure.) If you were given an inhaler, use it exactly as directed. If you need to use it more often than prescribed, your condition may be worsening. If this happens, contact your healthcare provider. If prescribed, finish all antibiotic medicine, even if you are feeling better after only a few days. Follow-up care Follow up with your healthcare provider, or as advised. If you had an X-ray or ECG (electrocardiogram), a specialist will review it. You will be notified of any new findings that may affect your care. If you are age 65 or older, or if you have a chronic lung disease or condition that affects your immune system, or you smoke, ask your healthcare provider about getting a pneumococcal vaccine and a yearly flu shot (influenza vaccine). When to seek medical advice Call your healthcare provider right away if any of these occur: Fever of 100.4 F (38 C) or higher, or as directed by your healthcare provider Coughing up increasing amounts of colored sputum Weakness, drowsiness, headache, facial pain, ear pain, or a stiff neck Call 911 Call 911 if any of these occur. Coughing up blood Worsening weakness, drowsiness, headache, or stiff neck Increased wheezing not helped with medication, shortness of breath, or pain with breathing [id number] [employer] [facility]. [address] [place] [address], [place] [address]. All rights reserved. This information is not intended as a substitute for professional medical care. Always follow your healthcare professional's instructions. Additional Information VACCINATE! IT SAVES LIVES! Members of the community who have not yet received the COVID-19 vaccine and would like to receive it can visit one of [facility] vaccine clinics. There are many vaccine clinic locations within the [facility]. For locations and available times, please visit [email or web address] [email or web address] It is important to note that some COVID mobile vaccine clinics are held outdoors and may be canceled in rainy or stormy conditions. To learn more about pediatric vaccinations (ages 5-11), we invite you to visit the [employer] webpage. [email or web address][email or web address]/pag [email or web address]-Tdrbh-Adecsvdzkiw-Frequent hq-Wwbrr-Fqzqcadud.html To learn more about the COVID-19 vaccine, we invite you to visit the CDC website for a list of frequently asked questions. https://www.cdc.gov/coronavirus/20 19-ncov/vaccines/faq.html [facility] Patient Portal Access Instructions: Stay connected with your healthcare team and access your personal medical information anytime with the [facility] Patient Portal. If you would like a full copy of your medical records please contact the [facility] Medical Records Department Thursday through Thursday between 8a.m. and 4:30p.m. Please follow the directions below to access the portal: 1.Access the email account you provided upon registration to the hospital.2.Look for an invitation email from [facility].3.Open the email and access the invitation link: Accept Invitation to [facility]4.Fill in the required de jesus to create your account. Sign into [email or web address] with your username and password that you created in the above steps to stay up to date. You can then view a summary of results, a summary of your visits, and the ability to download your summaries to your computer or send the information securely to a physician. Remember that your healthcare information is confidential, so carefully consider who you will allow to register on the [facility] Patient Portal for access to your information. You can also access the [facility] Patient Portal on the [employer] marlena. Simply click on Health Records under Health Data and then click on the [employer] logo. HOW TO SAFELY DISPOSE OF PRESCRIPTION MEDICATIONS Please use one of the following methods to safely dispose of your unused medications. 1.Use a drug disposal kit: the drug disposal pouch allows you to safely discard your old and unused drugs. Ask your nurse to give you one when you are discharged.2.Visit a local take-back location: Many local pharmacies and police departments have programs that collect old and unwanted prescription drugs. Call your local pharmacy or go to http://[employer]/7C6Oa8d to find one close to you.3.Make use of household items: Use cat litter or old coffee grounds to dispose medications if other options are not available. Mix your drugs with these household products, seal them in an airtight container and throw it into the garbage. Call [facility]: [phone] to be sure your drugs can be disposed of in this way. Some medicines may require a different approach.4.Never flush your medications down the toilet. IF YOU HAVE BEEN PRESCRIBED AN OPIOIDS FOR PAIN If you have been prescribed an opioid (such as hydrocodone, oxycodone or morphine), it is critical to understand the possible side effects and risks of opioid pain medications. Even when taken as directed, opioids can have several side effects including: Tolerance, meaning you might need to take more of a medication for the same pain relief. Nausea, vomiting and/or constipation. Sleepiness, dizziness, dry mouth, confusion, depression or itching. Physical dependence, meaning you have withdrawal symptoms when a medication is stopped ? this can develop within a few days. KNOW YOUR RESPONSIBILITIES It is important to know exactly how much and how often to take the opioid pain medications you are prescribed. Never take opioids in higher amounts or more often than prescribed. Do not combine opioids with alcohol or other drugs that cause drowsiness, such as benzodiazepines, also known as benzos, including diazepam and alprazolam, muscle relaxants or sleep aids. Never sell or share prescription opioids. This is illegal. Store opioids in a secure place and out of reach of others (including children, family, friends and visitors). The last page(s) of this document has been signed and retained as a CHART COPY Signatures Patient Education Materials Bronchitis With Wheezing (Adult) Medication Leaflets My discharge plan and instructions have been reviewed and explained to me and I,JULIO CESARAR, BOWER E understand my current condition and have read and understand these discharge instructions. I have received a written copy of the plan/instructions. If I have questions, I am aware that I should contact my doctor. Patient/Dry Curer Signature: Date/Time: Relationship to Patient: ___ Witness Name/Signature: Date/Time: [facility] 03-12-2025 Note Exam Date Time Procedure Performing Provider Status 03/12/25 11:04 PM XR Chest 1 View MARCO MCHUGH DO; Auth (Verified) [id number] ORIGINAL EXAMINATION: ONE XRAY VIEW OF THE CHEST03/12/2025 11:05 pm COMPARISON: CT abdomen pelvis 03/21/2024 HISTORY: ORDERING SYSTEM PROVIDED HISTORY: Reason for Exam: cough, SOB FINDINGS: The cardiomediastinal contours are within normal limits. Mild bilateral interstitial prominence is noted. Stable appearance of the right costophrenic angle compared to prior, likely scarring. Linear opacities at the left lung base likely represents subsegmental atelectasis. No visible pneumothorax. No acute osseous abnormality. Multiple chronic appearing right-sided rib fractures are present. Right scapular deformity could indicate chronic fracture. Degenerative changes of the visualized shoulders and spine. IMPRESSION: Mild bilateral interstitial prominence could represent pulmonary edema versus an infectious/inflammatory process. I have reviewed the resident's preliminary report and agree with findings and impression. Interpreted by: Marco Mchugh Preliminary Report By: Clifton Martin Electronically signed By Marco Mchugh Dictated Date: 03/12/2025 11:23:55 PM Prelim Date: 03/12/2025 11:29:09 PM Sign Date: 03/12/2025 11:31:57 PM Ordering Provider: JULIUS GODINEZ [facility]06-04-2025 Evaluation + Plan note Future Scheduled Tests Laboratory* TSH with Reflex to FT4 03/01/25 * Basic Metabolic Panel 03/01/25 * A1C Hemoglobin 03/01/25 Radiology* CT Coronary Calcium Score w/o Contrast 08/03/24 [facility] 06-02-2025 Telephone encounter Note* Telephone Encounter - Gabbi Stock RN - 02/27/2025 3:03 PM EDT Met with patient and introduced myself. Patient was given a My Journey binder with chemocare information, office contact information, thermometer, and additional chemotherapy resource booklets. Patient aware this nurse will review on scheduled appointment date. Gabbi Stock RN [facility]06-02-2025 Miscellaneous Notes* Telephone Encounter - Gabbi Stock RN - 02/27/2025 3:03 PM EDT Met with patient and introduced myself. Patient was given a My Journey binder with chemocare information, office contact information, thermometer, and additional chemotherapy resource booklets. Patient aware this nurse will review on scheduled appointment date. Gabbi Stock RN documented in this encounterCleveland Clinic [facility]06-02-2025 Note[facility] History of Present illness Narrative* Brittany Donahue RN - 02/27/2025 2:34 PM EDT Intake information documented in the prior visit with Dr. Martínez today. Radiation Therapy - Nursing Note (Consult) PATIENT NAME: Diana Thurston PATIENT February 27, 2025 [facility] FACILITY/LOCATION: [place] Chief Complaint: consult Reason for visit: Consult. Referring physician: Internal provider Dr Desouza Subjective Data: no complaints Additional Data Do you want to see a Emergency Nurse? No Are you interested in information about fertility? No Status: Patient is male Stress Scale: On a scale of 0 to 10, what number best describes how much distress you have experienced in the past week?(0 being no distress and 10 being extreme distress) 1 Social work notified: no SIGNED by: Brittany Donahue RN * Ilan Simon MD - 02/27/2025 1:46 PM EDT Radiation Oncology - New Patient/Consult Note PATIENT NAME: Diana Thurston PATIENT REQUESTING PROVIDER: Dr. Cortney Desouza DIAGNOSIS: 1. 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 2. 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 HPI: 79 year old male who presents with above diagnosis, for an opinion regarding the role of radiation therapy in the management of the patient's disease. Final recommendations will be communicated back to the requesting physician by way of the shared medical record, or letter to requesting physician via US mail. 79 year old man who had left parotid gland mass two years ago and was seen by ENT in 04/2023. 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 The mass grew in size over time and he saw another ENT. He was finally referred to Dr. Desouza at [facility]. He also had left ear drainage for months. He was found to have a firm/hard 4 x 4 centimeter mass in the left parotid. The left TM and perforation. CT neck on 02/02/25 showed enhancing lesion in the right tongue base/vallecula involving the anteriorsurface of the epiglottis. 7 mm hyperattenuating lesion in the midline anterior to this, immediately superior to the hyoid bone. with pathologic right level 2A node 16 x 14 mm, concerning for primaryneoplasm with nas metastasis. Small enhancing focus in the pre-epiglottic region just anterior tothis may be related to the above, versus ectopic thyroid tissue. Large 51 mm irregular enhancing left parotid mass involving the superficial and deep lobes. Adjacent cortical thinning at the inferiorleft mastoid tip. This is compatible with primary neoplasm Office laryngoscopy on 02/07/[address] Cortney Desouza showed a 3 cm right base of tongue mass. There was normal TVC motion. FNA of the left parotid gland on 02/07/25 showed malignant cells, basaloid neoplasm favoring salivary gland origin. FNA of the right neck node showed squamous cell carcinoma. PET scan on 02/14/25 showed heterogeneous hypermetabolic infiltrative left parotid region mass (max SUV 5.6), measures about 4.7 x 5.2 cm. Possible adjacent left mastoid osseous changes/ invasion. Hypermetabolic focus with soft tissue thickening/asymmetry in the right tongue base/vallecular region (Max SUV 18.4). The metabolic activity extends to the contralateral side. Hypermetabolic right level 2A lymph node (Max SUV 8.7) measures 1.5 x 1.6 cm. ALLERGIES No Known Allergies Current Outpatient Medications on File Prior to Visit Medication Sig MOUNJARO 5 mg/0.5 mL pen injector INJECT 5MG SUBCUTANEOUSLY ONCE WEEKLY ROTATE INJECTION SITES (Patient not taking: Reported on 02/27/2025) MOUNJARO 2.5 mg/0.5 mL pen injector INJECT 2.5 MG UNDER THE SKIN EVERY WEEK. - ROTATE INJECTION SITES (Patient not taking: Reported on 02/07/2025) omeprazole (PRILOSEC) 40 mg capsule Take 1 capsule by mouth once daily. hydroCHLOROthiazide 25 mg tablet Take 25 mg by mouth every morning. dexAMETHasone 0.1 % ophthalmic solution Two drops in affected ear twice a day (Patient not taking: Reported on 02/07/2025) ciprofloxacin HCl (CILOXAN) 0.3 % ophthalmic solution 2 drops two times a day. Affected ear (Patient not taking: Reported on 02/07/2025) colchicine 0.6 mg tablet Take 1 tablet by mouth two times a day. (Patient not taking: Reported on 02/27/2025) pantoprazole DR (PROTONIX) 20 mg tablet Take 1 tablet by mouth once daily for 10 days. (Patient nottaking: Reported on 02/27/2025) pravastatin (PRAVACHOL) 40 mg tablet Take 40 mg by mouth daily at bedtime. losartan (COZAAR) 50 mg tablet Take 50 mg by mouth once daily. No current facility-administered medications on file prior to visit. 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 No PAST SURGICAL HISTORY Procedure Laterality Date PAST SURGICAL HISTORY OF 1966 head surgery PAST SURGICAL HISTORY OF 02/07/2025 Left parotid gland/right neck lymph node FNA REMOVAL GALLBLADDER 2023 FAMILY HISTORY Problem Relation Age of Onset Heart Attack Father Cancer Sister Breast Cancer Sister Lung Cancer Sister Heart Attack Brother Heart Attack Brother Heart Attack Brother Social History Tobacco Use Smoking status: Former Types: Cigarettes Smokeless tobacco: Never Tobacco comments: Pt smoked 1/2 pack daily x 40 years, quit smoking January 2025 Vaping Use Vaping status: Never Used Substance Use Topics Alcohol use: Not Currently Drug use: Never COMPLETE REVIEW OF SYSTEMS: GENERAL: feeling well without fatigue, no recent change in weight HEENT: denies DICKEY, change in hearing or vision, no other ENT complaints NECK: Left neck mass RESPIRATORY: no cough, no wheezing or shortness of breath CARDIOVASCULAR: no chest pain, no palpitations GI: normal appetite, tolerating PO well, BMs normal, and no abdominal pain : urination is normal MUSCULOSKELETAL: denies any painful or swollen joints, no muscle aches SKIN: no rash HEMATOLOGY/LYMPHOLOGY: negative for prolonged bleeding, no swollen lymph nodes NEURO: no numbness or paresthesias and no weakness of the extremities PHYSICAL EXAM: VS: BP 151/92 Pulse 78 Temp 36.5 C (97.7 F) (Temporal) Resp 14 Wt 94.8 kg (209 lb) SpO2 99% BMI 33.23 kg/m KPS: 80 General Appearance: Alert and oriented. No acute distress. HEENT: 4 cm firm left parotid mass. Sclera anicteric. EOMI. Neck: Normal ROM. Chest: No respiratory distress. Musculoskeletal: Normal ROM in extremities. Neuro: Speech fluent. Gait normal. No focal deficits. Hematologic: No signs of active bleeding. Lymph nodes: No palpable discrete cervical/supraclavicular node. RADIOLOGY/LABORATORY DATA: see HPI ASSESSMENT AND PLAN: 79 year old man with 1. 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 2. 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 Regarding his right base of tongue cancer, I recommend chemoradiation treatment. Regarding his left parotid gland basaloid cancer, surgical resection needs to be considered. He sawDr. Martínez and he is referred to see ENT surgeon at the [facility] [place]. I explained the rationale, benefits, alternative management options and potential complications of radiation treatment to the patient and he understands and agrees to proceed. It was explained and understood that other personnel such as radiation therapists, neurology hospitalist, and physicists will participate in planning and delivery of radiation treatment. Permanent tattoo alegria will be placed to aid with positioning for daily treatment and the patient consented. Patient will have a simulation procedure after decision on surgery. Thank you very much for allowing us to participate in his care. Signed by: Ilan Simon MD cc: Price [place] [phone] [facility] [place] [address] Cortney Desouza [facility] [id number] Blake Martínez documented in this encounterCleveland Clinic [facility]06-02-2025 NoteSelect [facility]ty [facility]06-02-2025 NoteSelect Medical Specialty [facility] - [place]06-02-2025 History of Present illness Narrative* Blake Martínez DO - 02/27/2025 1:28 PM EDT Patient referred by Dr. Desouza for head and neck cancer. HPI: The patient is a 79-year-old male with past medical history as outlined below. CT Neck 02/02/2025: IMPRESSION: Enhancing lesion in the right tongue base/vallecula with pathologic right level 2A node, concerningfor primary neoplasm with nas metastasis. Recommend direct visualization and tissue sampling as clinical warranted. Small enhancing focus in the pre-epiglottic region just anterior to this may be related to the above, versus ectopic thyroid tissue. Large 51 mm irregular enhancing left parotid mass involving the superficial and deep lobes. Adjacent cortical thinning at the inferior left mastoid tip. 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 this area. The left parotid FNA shows basaloid neoplasm, favor salivary gland origin. If Mr Thurston wants to have surgery for this then it would be done at [facility]. If no surgery XRT will help slow down the cancer. Dr Desouza recommends getting a PET scan, whether he goes for treatment or not. Kayy stated she understands and would like to proceed with getting the PET scan. She will talk with her Dad over the weekend and give us a call next week with what he states. Meek Graham MA documented in this encounterC[facility]05-[facility] Telephone encounter Note * Telephone Encounter - Meek Graham MA - 02/10/2025 6:17 PM EDT Called and spoke with Kayy, Mr Thurston's daughter. 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 XRT/chemo can treat this area. The left parotid FNA shows basaloid neoplasm, favor salivary gland origin. If Mr Thurston wants to have surgery for this then it would be done at [facility]. If no surgery XRT will help slow down the cancer. Dr Desouza recommends getting a PET scan, whether he goes for treatment or not. Kayy stated she understands and would like to proceed with getting the PET scan. She will talk with her Dad over the weekend and give us a call next week with what he states. Meek Graham MA [facility]05-13-[facility]25 Instructions* Patient Instructions* Cortney Desouza MD - 02/07/2025 3:35 PM EDT We will call you with the results of the biopsies. documented in this encounterCleveland [facility]05-08-20[facility] History of Present illness Narrative* Amy Calderon TECHNOLOGIST - 02/02/2025 1:00 PM EDT Radiology Service Progress Note PATIENT NAME: Diana Thurston DATE OF SERVICE: February 02, 2025 TIME: 2:04 PM PATIENT IDENTITY VERIFICATION COMPLETED USING TWO (2) IDENTIFIERS: Name and Date of confirmedby patient verbally and Name and Date of confirmed by identification band. FALL SCREENING: Has the patient had 2 falls in the last year or 1 fall with injury or currently using an Ambulatory Assistive Device (Walker, Cane, Wheelchair, Crutches, etc.)? No PATIENT GENDER DATA: Assigned male at PATIENT RELEVANT IMPLANT DATA REVIEWED: Yes PATIENT PRESENTS WITH AN IMPLANTABLE OR ATTACHED BREAKER HAND: No RADIOLOGY DEPARTMENT: CT; Exam(s) Completed: Neck PERIPHERAL IV DATA: Site assessment: Clean,Dry and Intact, Site disposition Discontinued SIGNED BY: TECHNOLOGIST Lyly February 02, 2025 2:04 PM documented in this encounterCleveland [facility]05-08-2025 NoteHNO ID: [id number] Author: AMY CALDERON TECHNOLOGIST Service: Radiology Author Type: Technologist Type: Progress Notes Filed: 02/02/2025 14:04 Note Text: Radiology Service Progress Note PATIENT NAME: Diana Thurston DATE OF SERVICE: February 02, 2025 TIME: 2:04 PM PATIENT IDENTITY VERIFICATION COMPLETED USING TWO (2) IDENTIFIERS: Name and Date of confirmed by patient verbally and Name and Date of confirmed by identification band. FALL SCREENING: Has the patient had 2 falls in the last year or 1 fall with injury or currently using an Ambulatory Assistive Device (Walker, Cane, Wheelchair, Crutches, etc.)? No PATIENT GENDER DATA: Assigned male at PATIENT RELEVANT IMPLANT DATA REVIEWED: Yes PATIENT PRESENTS WITH AN IMPLANTABLE OR ATTACHED BREAKER HAND: No RADIOLOGY DEPARTMENT: CT; Exam(s) Completed: Neck PERIPHERAL IV DATA: Site assessment: Clean,Dry and Intact, Site disposition Discontinued SIGNED BY: Amy Calderon TECHNOLOGIST February 02, 2025 2:04 PMNorwalk [facility] [id number] Nurse Note* Aidee Owen RN - 02/02/2025 1:00 PM EDT Radiology Service Progress Note DATE OF SERVICE: February 02, 2025 TIME: 2:03 PM PATIENT WEIGHT: 216LBS PATIENT IDENTITY VERIFICATION COMPLETED USING TWO (2) STANDARD IDENTIFIERS: Name and Date of confirmed by patient verbally and Name and Date of confirmed by identification band. FALL SCREENING: Has the patient had 2 falls in the last year or 1 fall with injury or currently using an Ambulatory Assistive Device (Walker, Cane, Wheelchair, Crutches, etc.)? No PATIENT GENDER DATA: Assigned male at ALLERGIES: Reviewed and unchanged CONTRAST ALLERGY: No EXAM: CT -CONTRAST INDUCED NEPHROPATHY RISK FACTORS: Patient age > 60 years CREATININE: Creatinine Date Value Ref Range Status 02/02/2025 1.13 0.73 - 1.22 mg/dL Final 06/02/2024 0.98 0.73 - 1.22 mg/dL Final 05/10/2024 0.88 0.73 - 1.22 mg/dL Final Estimated Glomerular Filtration Rate Date Value Ref Range Status 02/02/2025 67 >=60 mL/min/1.73m Final Comment: Estimated Glomerular Filtration Rate (eGFR) is calculated using the 2020 CKD-EPI creatinine equation. This equation utilizes serum creatinine, sex, and age as parameters. The creatinine assay has traceable calibration to isotope dilution- mass spectrometry. Refer to KDIGO guidelines for clinical interpretation. In patients with unstable renal function, e.g. those with acute kidney injury, the eGFRmay not accurately reflect actual GFR. P.O.C.T. RESULTS: N/A February 02, 2025 TREATMENT: N/A IV SITE: Ambulatory: A peripheral IV was started in the Left antecubital site with a Angio cath: 22gauge. IV SITE APPEARANCE: Clean,Dry and Intact SIGNATURE: Aidee Owen RN PATIENT NAME: Diana Thurston DATE: February 02, 2025 TIME: 2:03 PM [facility]05-08-[facility] Nurse Note* Aidee Owen RN - 02/02/2025 1:00 PM EDT Radiology Service Progress Note DATE OF SERVICE: February 02, 2025 TIME: 2:03 PM PATIENT WEIGHT: 216LBS PATIENT IDENTITY VERIFICATION COMPLETED USING TWO (2) STANDARD IDENTIFIERS: Name and Date of confirmed by patient verbally and Name and Date of confirmed by identification band. FALL SCREENING: Has the patient had 2 falls in the last year or 1 fall with injury or currently using an Ambulatory Assistive Device (Walker, Cane, Wheelchair, Crutches, etc.)? No PATIENT GENDER DATA: Assigned male at ALLERGIES: Reviewed and unchanged CONTRAST ALLERGY: No EXAM: CT -CONTRAST INDUCED NEPHROPATHY RISK FACTORS: Patient age > 60 years CREATININE: Creatinine Date Value Ref Range Status 02/02/2025 1.13 0.73 - 1.22 mg/dL Final 06/02/2024 0.98 0.73 - 1.22 mg/dL Final 05/10/2024 0.88 0.73 - 1.22 mg/dL Final Estimated Glomerular Filtration Rate Date Value Ref Range Status 02/02/2025 67 >=60 mL/min/1.73m Final Comment: Estimated Glomerular Filtration Rate (eGFR) is calculated using the 2020 CKD-EPI creatinine equation. This equation utilizes serum creatinine, sex, and age as parameters. The creatinine assay has traceable calibration to isotope dilution- mass spectrometry. Refer to KDIGO guidelines for clinical interpretation. In patients with unstable renal function, e.g. those with acute kidney injury, the eGFRmay not accurately reflect actual GFR. P.O.C.T. RESULTS: N/A February 02, 2025 TREATMENT: N/A IV SITE: Ambulatory: A peripheral IV was started in the Left antecubital site with a Angio cath: 22gauge. IV SITE APPEARANCE: Clean,Dry and Intact SIGNATURE: Aidee Owen RN PATIENT NAME: Diana Thurston DATE: February 02, 2025 TIME: 2:03 PM documented in this encounterCleveland [facility]04-29-2025 NoteHNO ID: [id number] Author: CORTNEY DESOUZA MD Service: ? Author Type: Physician Type: Progress Notes Filed: 01/24/2025 18:19 Note Text: TRIBE: Diana Thurston is a 79 year old, White, male who presents with his [id number], I am here about my left ear/face. He has swelling of the left face near the ear for a couple of years. It is not enlarging. He saw ENT in [place] and had a biopsy. He was told he needed surgery. He has daily left ear drainage for months. He is not tried any treatment. He has had bad hearing for years but noticed it is more left than right since the drainage started. He is not having ear pain, tinnitus or vertigo. He does not have general bleeding or bruising problems and does not use aspirin or blood thinners. SUBJECTIVE: I reviewed the allergies, medications, problem list, PMH/PSH, FmHx and SocHx as documented in Epic chart. PHYSICAL EXAM: VS: height is 167.6 cm (5' 6) and weight is 98 kg (216 lb). His blood pressure is 132/80 and his pulse is 60. His respiration is 16. CONST/MS: The patient appears to be in NAD and has a normal voice quality. H/F/N: The facial motion is overall normal. There are no palpable salivary gland, thyroid or neck masses, except the left parotid inferiorly and posteriorly has a firm/hard 4 x 4 centimeter mass. Ears: The external ears and right canal are without lesions. The left canal has some drainage and moist debris which I suctioned. The right TM is intact and mobile on pneumatic otoscopy. The left TM has an anterior/inferior 2 mm perforation. Nose: The external nose is without lesions. The nasal mucosa appears healthy on nasal speculum exam. The septum has left greater than right deviation. The IT are not hypertrophic. OC/OP: The lips and visualized gums are without lesions. The tongue/oral mucosa is healthy. The soft palate, tonsil fossa and posterior pharynx are without lesions. There is an upper denture but the lower jaw is a dentulous. [employer]T H[employer] INSPECTOR [employer] PACKER: The mirror exam is without obvious lesion. HP/LX: The mirror exam is prevented by gagging. OBJECTIVE: I requested the records from [place] [facility]. I received them later in the day after the patient left. 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 ASSESSMENT AND PLAN: I counseled them about the differential diagnosis, natural course, treatment options and answered their questions for all diagnoses and orders: 1. 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 Otorrhea, left - ICD9: 388.60, ICD10: H92.12 3. Tympanic membrane perforation, left - ICD9: 384.20, ICD10: H72.92 4. Screening for nephropathy - ICD9: V81.5, ICD10: Z13.89 Prescriptions for ciprofloxacin ophthalmic and dexamethasone ophthalmic, 5 mL each, NRF were sent. He was counseled to use 2 drops of each of these in the left ear twice a day. We will check a neck CT and see him afterward. He was counseled he needs to consider parotidectomy. Return for Test Results, neck CT. Cortney Desouza MD 65 minutes Total time including preparation, obtaining/reviewing history, exam, interpreting results, ordering, counseling/education, referring/communicating and documentation. Created using voice recognition software, some errors may have occurred. Corrections may be performed at a later date.[facility] 01-24-20[facility] History of Present illness Narrative* Cortney Desouza MD - 01/24/2025 6:09 PM EDT TRIBE: Diana Thurston is a 79 year old, White, male who presents with his [id number], I am here about myleft ear/face. He has swelling of the left face near the ear for a couple of years. It is not enlarging. He saw ENT in [place] and had a biopsy. He was told he needed surgery. He has daily left ear drainage for months. He is not tried any treatment. He has had bad hearing for years but noticed it is more left than right since the drainage started. He is not having ear pain, tinnitus or vertigo. He does not have general bleeding or bruising problems and does not use aspirin or blood thinners. SUBJECTIVE: I reviewed the allergies, medications, problem list, PMH/PSH, FmHx and SocHx as documented in Epic chart. PHYSICAL EXAM: VS: height is 167.6 cm (5' 6) and weight is 98 kg (216 lb). His blood pressure is 132/80 and his pulse is 60. His respiration is 16. CONST/MS: The patient appears to be in NAD and has a normal voice quality. H/F/N: The facial motion is overall normal. There are no palpable salivary gland, thyroid or neck masses, except the left parotid inferiorly and posteriorly has a firm/hard 4 x 4 centimeter mass. Ears: The external ears and right canal are without lesions. The left canal has some drainage and moist debris which I suctioned. The right TM is intact and mobile on pneumatic otoscopy. The left TM has an anterior/inferior 2 mm perforation. Nose: The external nose is without lesions. The nasal mucosa appears healthy on nasal speculum exam. The septum has left greater than right deviation. The IT are not hypertrophic. OC/OP: The lips and visualized gums are without lesions. The tongue/oral mucosa is healthy. The soft palate, tonsil fossa and posterior pharynx are without lesions. There is an upper denture but the lower jaw is a dentulous. [employer]T H[employer] INSPECTOR [employer] PACKER: The mirror exam is without obvious lesion. HP/LX: The mirror exam is prevented by gagging. OBJECTIVE: I requested the records from [place] [facility]. I received them later in the day after the patient left. 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 ASSESSMENT & PLAN: I counseled them about the differential diagnosis, natural course, treatment options and answered their questions for all diagnoses and orders: 1. 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 Otorrhea, left - ICD9: 388.60, ICD10: H92.12 3. Tympanic membrane perforation, left - ICD9: 384.20, ICD10: H72.92 4. Screening for nephropathy - ICD9: V81.5, ICD10: Z13.89 Prescriptions for ciprofloxacin ophthalmic and dexamethasone ophthalmic, 5 mL each, NRF were sent. He was counseled to use 2 drops of each of these in the left ear twice a day. We will check a neck CT and see him afterward. He was counseled he needs to consider parotidectomy. Return for Test Results, neck CT. Cortney Desouza MD 65 minutes Total time including preparation, obtaining/reviewing history, exam, interpreting results, ordering, counseling/education, referring/communicating and documentation. Created using voice recognition software, some errors may have occurred. Corrections may be performed at a later date. documented in this encounterC[facility]04-[facility] Instructions* Patient Instructions* Cortney Desouza MD - 01/18/2025 11:52 AM EDT Use 2 drops of each of the bottles of eyedrops in the left ear twice a day. You may stop the drops if the drainage stops. documented in this encounterC[facility]11-13-[facility] Telephone encounter Note * Telephone Encounter - Jayashree Sneed - 08/10/2024 2:53 PM EST Dyll[place]. 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 [facility] does not have any appointments in 2 weeks but [facility] has space in Nov. This is the pt we got referral from [facility] then pt no showed and then never picked up the phone. Referral in [employer] [id number] Miscellaneous Notes* Telephone Encounter - Jayashree Sneed - 08/10/2024 2:53 PM EST Dyllan. 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 [facility] does not have any appointments in 2 weeks but [facility] has space in Nov. This is the pt we got referral from ratna then pt no showed and then never picked up the phone. Referral in [employer] * Telephone Encounter - Jayashree Sneed - 07/11/2024 3:15 PM EDT Please advice I have been calling pt everyday and no answer to make aware of appt. This was a referral from Ratna Thomas * Telephone Encounter - Jayashree Sneed - 07/08/2024 9:[address] Khanna actually wants to see this pt in 1/2 weeks. Scheduled pt at [place] 07/15. [facility] to make aware. * Telephone Encounter - Jayashree Sneed - 07/07/2024 2:54 PM EDT Received referral from [facility] for pt to see Dr. Khanna. Referral sent to the referral department. If pt calls back please schedule for ENT H&N green available spot first available. documented in this [id number] Evaluation + Plan note Diagnostic Tests Pending * .Peripheral Smear Review 08/03/24 Future Scheduled Tests Laboratory* [facility] Send out (Blood Specimens) 07/05/24 Radiology* BD Bone Density DEXA Axial Skeleton 12/04/23 * CT Coronary Calcium Score w/o Contrast 08/03/24 [facility] 10-14-2024 NotePlease advice I have been calling pt everyday and no answer to make aware of appt. [facility] [id number] Telephone encounter Note* Telephone Encounter - Jayashree Sneed - 07/11/2024 3:15 PM EDT Please advice I have been calling pt everyday and no answer to make aware of appt. This was a referral from Ratna Thomas [id number] Miscellaneous Notes* Telephone Encounter - Jayashree Sneed - 07/11/2024 3:15 PM EDT Please advice I have been calling pt everyday and no answer to make aware of appt. This was a referral from [facility] Thomas * Telephone Encounter - Jayashree Sneed - 07/08/2024 9:[address] Khanna actually wants to see this pt in 1/2 weeks. Scheduled pt at [place] 07/15. [facility] to make aware. * Telephone Encounter - Jayashree Sneed - 07/07/2024 2:54 PM EDT Received referral from [facility] for pt to see Dr. Khanna. Referral sent to the referral department. If pt calls back please schedule for ENT H&N green available spot first available. documented in this [id number] Telephone encounter Note* Telephone Encounter - Jayashree Sneed - 07/08/2024 9:[address] Khanna actually wants to see this pt in 1/2 weeks. Scheduled pt at [place] 07/15. [facility] to make aware. [id number] Miscellaneous Notes* Telephone Encounter - Jayashree Sneed - 07/08/2024 9:[address] Khanna actually wants to see this pt in 1/2 weeks. Scheduled pt at [place] 07/15. [facility] to make aware. * Telephone Encounter - Jayashree Sneed - 07/07/2024 2:54 PM EDT Received referral from [facility] for pt to see Dr. Khanna. Referral sent to the referral department. If pt calls back please schedule for ENT H&N green available spot first available. documented in this [id number] NoteReceived referral from [facility] for pt to see Dr. Khanna. Referral sent to the referral department. If pt calls back please schedule for ENT H AND N green available spot first available.[email or web address] [id number] Telephone encounter Note* Telephone Encounter - Jayashree Sneed - 07/07/2024 2:54 PM EDT Received referral from [facility] for pt to see Dr. Khanna. Referral sent to the referral department. If pt calls back please schedule for ENT H&N green available spot first available. [id number] Telephone encounter Note* Telephone Encounter - ArandaAngie - 06/03/2024 2:48 PM EDT Per Aisha Barber: Was also supposed to have echo prior to appointment. Looks like she missed the appointment today? Can we call her to get echo rescheduled prior to appointment Called and left VM to get patient rescheduled for echo and appt after echo [facility]09-06-[facility] Miscellaneous Notes* Telephone Encounter - ArandaAngie - 06/03/2024 2:48 PM EDT Per Aisha Barber: Was also supposed to have echo prior to appointment. Looks like she missed the appointment today? Can we call her to get echo rescheduled prior to appointment Called and left VM to get patient rescheduled for echo and appt after echo documented in this encounterCleveland Clinic [facility]08-23-2024 History of Present illness Narrative* Rufino Givens DO - 05/20/2024 9:25 AM EDT 78 year old male presenting for hospital follow up I have fully reviewed the past medical, surgical, social and family history and updated the Histories section of [facility]. Continues to have hemoptysis at times small drops of blood Recommend outpatient workup in hospital Abd symptoms resolved Current Outpatient Medications on File Prior to Visit: Current Outpatient Medications Medication Sig Dispense Refill colchicine 0.6 mg tablet Take 1 tablet by mouth two times a day. 60 tablet 2 ibuprofen (MOTRIN) 600 mg tablet Take 1 tablet by mouth three times a day for 10 days. [address] (PROTONIX) 20 mg tablet Take 1 tablet by mouth once daily for 10 days. 10 tablet 0 pravastatin (PRAVACHOL) 40 mg tablet Take 40 mg by mouth daily at bedtime. hydroCHLOROthiazide 12.5 mg tablet 12.5 mg. losartan (COZAAR) 50 mg tablet Take 50 mg by mouth two times a day. 3 No current facility-administered medications for this visit. ALLERGIES No Known Allergies No past surgical history on file. Social history reviewed in [facility]. REVIEW OF SYSTEMS: Constitutional: Denies fever, denies chills, denies fatigue Head: Denies headache Eyes: Denies changes in vision or blurry vision Ears/Nose/Throat: Denies sore throat, denies rhinorrhea Musculoskeletal: Denies joint pain, denies myalgias Abd: No abd pain, no vomiting, no diarrhea, no nausea Skin/Breast: Denies rash or lesions Cardiovascular: Denies chest pain, denies palpitations, denies LE edema Respiratory: Denies cough, denies SOB, denies wheezing Neurological: Denies numbness, denies tingling, denies weakness PHYSICAL EXAMINATION: General appearance: Well appearing, alert, in no acute distress, well-hydrated, well nourished. Skin: no suspicious rashes or lesions Head: Normocephalic, atraumatic Eyes: Anicteric sclera. Pupils are equally round and reactive to light. Extraocular movements are intact. Ears: External ears normal, canals clear Nose/Sinuses: Nares normal, septum midline, mucosa normal, Oropharynx: Lips, mucosa, and tongue normal, good dentition, no pharyngeal erythema or exudates Neck: Supple, no adenopathy Lungs: Lungs clear to auscultation. No wheezing, rhonchi, rales. Heart: RRR without murmur, gallop, or rubs. Abdomen: Normal abdominal exam, Abdomen soft, non-tender. No masses Extremities: No deformities, no edema, no cyanosis. Musculoskeletal: No joint swelling, no deformity Neuro: Gait normal. Speech intact TRANSITIONS OF CARE CRITICAL ISSUES: GONZALEZ MEDICATION CHANGES: None FOLLOW UP APPOINTMENTS: PCP, GI for biliary stent removal Pulmonary nodule [address] follow up LABS & PROCEDURES PENDING AT DISCHARGE: Test Results Not Yet Available from This Hospitalization: Please Review at Your Follow Up Appointment Order Current Status CALPROTECTIN,FECAL In process INCIDENTAL OR ACTIONABLE FINDING (Last Refresh: 04/30/2024 12:45 PM) Test(s): CT CHEST WO IVCON REASON FOR HOSPITALIZATION/PRINCIPAL DIAGNOSES: Abdominal pain, Choledocholithiasis HOSPITAL PROBLEMS: Principal Problem: Choledocholithiasis (POA: Yes) Active Problems: Chronic cough (POA: Yes) Cough with hemoptysis (POA: Yes) Essential hypertension (POA: Yes) Bladder wall thickening (POA: Yes) Benign prostatic hyperplasia with nocturia (POA: Yes) 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 * HOSPITAL COURSE: Diana Thurston is a 78 year old male PMH: HTN, HLD, cholecystectomy presenting to ED with abdominal pain starting about 4 weeks ago. Initially was having sharp RUQ pain and epigastric pain after eating. Also reporting cough over the past month with occasional blood-tinged sputum. ED workup with CT abdomen showing 1.4 cm noncalcified calculus versus mass in the distal CBD with intrahepatic and extrahepatic biliary dilation. Incidental findings of bladder wall thickening recommending UA to rule out cystitis, left adrenal myelo lipoma, left renal cyst, diverticuli, prominent prostate. RUQ US done showing intrahepatic and extrahepatic biliary dilation and filling defect in the distalCBD. CBC with no leukocytosis. Bilirubin 4.6, ALP 442, AST 185, ALT 186, lipase 27. Transferred to [place] for GI consult with advanced endoscopy. Bilirubin trended up to 5.2. ERCP done 04/29. Choledocholithiasis removed by sphincterotomy and balloon extraction. Stent to CBD to stop sphincterotomy bleeding. Tolerated diet. Bilirubin down to 2.4 post ERCP. To follow up with GI for ERCP stent removal in 2 months. Due to reported hemoptysis CT chest done, w one <6mm nodule, will need [address] follow up. No further hemoptysis while here. Will need further workup outpatient. CT abdomen in ED had multiple incidental findings. Mural thickening of the urinary bladder may be related to incomplete distention though correlate with urinalysis to exclude cystitis. UA was done and is negative. Additional incidental findings include: Left adrenal myelolipoma, left renal cyst, duodenal diverticulum. Mildly prominent prostate for which correlation with PSA levels is requested. OPERATIONS/PROCEDURE DURING THIS HOSPITALIZATION: * No surgery found * CONSULTS DURING HOSPITALIZATION: Treatment Team: Attending Provider: Monica Monroe MD Primary Service: 6, [facility] Primary Service: Karri Terry APRN.RECHARGER PATIENT CONDITION AT DISCHARGE: Improved DISCHARGE DISPOSITION: Home with Self Chcf with Self Care General: NAD, resting comfortably in bed, polite and cooperative HEENT: Normocephalic, atraumatic, Pupils are equal, round, and reactive to light, EOMI, Mucus membranes moist, tongue is pink and midline Neck: Supple, trachea midline Lungs: CTA bilaterally without wheezes, rales, rhonchi. Unlabored respiratory effort Heart: Regular rate and rhythm without ectopy, no M/R/G Abdomen: Soft, nontender, bowel sounds present in all de jesus, no HSM, no rebound or guarding. Musculoskeletal: Normal muscle bulk and tone. Appears to have full ROM of the UE/LE without deficit. Vascular: Cap refill brisk less than 2 sec. No cyanosis or edema. Neuro: CN II-XII intact. Answers all questions appropriately. Skin: No rashes, lesions, or cellulitis WOUND/SURGICAL SITE CARE: None SUPPLIES OR EQUIPMENT: None DIET: Resume pre-hospital diet ACTIVITY AND EXERCISE: Resume pre-hospital activity FOLLOW UP APPOINTMENTS: NO FUTURE APPOINTMENTS. ALLERGIES ALLERGIES No Known Allergies DISCHARGE MEDICATION: Medication List CONTINUE taking these medications hydroCHLOROthiazide 12.5 mg tablet losartan 50 mg tablet Commonly known as: COZAAR omeprazole 40 mg capsule Commonly known as: PriLOSEC pravastatin 40 mg tablet Commonly known as: PRAVACHOL ASSESSMENT/PLAN: 1. Lung nodule - ICD9: 793.11, ICD10: R91.1 (primary diagnosis) 2. Lung nodules - ICD9: 793.19, ICD10: R91.8 - CT CHEST WO IVCON 3. Hemoptysis - ICD9: 786.30, ICD10: R04.2 - CONSULT TO PULMONARY MEDICINE Discussed with patient red flag symptoms. Discussed risks and benefits of treatment plan. Pt understands to seek appropriate evaluation for new or worsening symptoms. Patient understands and agrees with plan, all concerns and questions addressed. documented in this encounterC[facility]08-15-[facility]24 History of Present illness Narrative* Araceli Isidro MD - 05/12/2024 2:00 PM EDT Images from the original note were not included. [facility] [place] SECTION OF REGIONAL CARDIOLOGY OUTPATIENT VISIT DATE 05/12/2024 OUTPATIENT VISIT TYPE NEW HISTORY OF PRESENT ILLNESS: Mr. Thurston is a 78 year old male, hx of hypertension, HLD, choledocholithiasis s/p ERCP with CBD stent, presents for post ER visit follow up. He presented to the ED on 05/09 with chest pain. He denied any association with food. He reported experiencing chest pain when lying down which would eventually improve and he would sometimes feel it when sitting. He denies SOB, palpitations, orthopnea, PND, leg swelling, lightheadedness, syncope. Labs: Tbil 1.5, ALP 143, Na 133, WBC 12.12, hstrop 10 x2. Limited echo 05/09: EF 60%, trace TR, small pericardial effusion adjacent to RV, LV and RA PAST MEDICAL HISTORY No date: Hyperlipidemia No date: Hypertension No past surgical history on file. Social History Tobacco Use Smoking status: Former Types: Cigarettes Smokeless tobacco: Never Vaping Use Vaping Use: Never used Substance Use Topics Alcohol use: Not Currently Drug use: Never No family history on file. ALLERGIES No Known Allergies CURRENT MEDICATIONS: pravastatin (PRAVACHOL) 40 mg tablet Take 40 mg by mouth daily at bedtime. hydroCHLOROthiazide 12.5 mg tablet 12.5 mg. losartan (COZAAR) 50 mg tablet Take 50 mg by mouth two times a day. PHYSICAL EXAMINATION: BP 108/66 Pulse 89 Ht 167.6 cm (5' 6) Wt 96 kg (211 lb 10.3 oz) SpO2 96% BMI 34.16 kg/m General: Appears comfortable in no apparent cardiopulmonary distress Neck: No JVD, no bruits CVS: S1, S2, No m/r/g Chest: CTAB Abd: Soft, nontender, no masses, BS present Ext: No pedal edema, pedal pulses 2+ bilaterally Neuro: No focal neurological deficits CARDIOVASCULAR MEDICINE TESTING: Last ECHO Result Conclusion ECHO LIMITED Collected: 05/09/2024 1:54 PM (Final result) Impression: CONCLUSIONS: - Exam indication: Pericardial effusion - The left ventricle is normal in size. Left ventricular systolic function is normal. EF = 60 5% (visual est.). Left ventricular diastolic function was not evaluated. - The right ventricle is normal in size. Right ventricular systolic function is normal. - Limited echo for pericardial effusion. - No significant valvular abnormalities. - The patient has not had a prior CC echocardiographic exam for comparison. * * * Final * * * Last EKG Result Conclusion EKG Collected: 05/09/2024 9:22 AM (Preliminary result) Impression: NORMAL SINUS RHYTHM NONSPECIFIC T WAVE ABNORMALITY ABNORMAL ECG Last CT Result Conclusion CT CHEST W IVCON PE Exam End: 05/09/2024 10:51 AM (Final result) Impression: IMPRESSION: 1. No evidence of pulmonary embolus 2. Small left-sided pleural effusion 3. Interval placement of a distal common bile duct stent. Air in the biliary tree due to recent intervention 4. 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 Pericardial effusion (noninflammatory) - ICD9: 423.9, ICD10: I31. - Will empirically start treatment for pericarditis with colchicine and ibuprofen to see if this helps with the pericardial effusion and chest pain. Pantoprazole prescribed to be taken while taking ibuprofen. Side effect profile of medications were d/w him. - Repeat ECHO in 3 weeks to reassess pericardial effusion size, and symptoms. Araceli Isidro MD, [facility] Non invasive and Sports Import/Export Agent documented in this encounterC[facility]08-14-2024 Telephone encounter Note * Telephone Encounter - Renate Crowell MA - 05/11/2024 10:37 AM EDT Left message for patient. [facility]08-[facility] Miscellaneous Notes* Telephone Encounter - Renate Crowell MA - 05/11/2024 10:37 AM EDT Left message for patient. * Telephone Encounter - Mirna Clancy APRN.CNP - 05/11/2024 9:50 AM EDT Please call pt and let him know his labs are the same from previous day. Please have him keep follow up with cardio and with Dr. Givens. documented in this encounterC[facility] Clinic [facility]08-14-2024 Telephone encounter Note * Telephone Encounter - Mirna Clancy APRN.CNP - 05/11/2024 9:50 AM EDT Please call pt and let him know his labs are the same from previous day. Please have him keep follow up with cardio and with Dr. Givens. [facility]08-[facility] History of Present illness Narrative* Mirna Clancy APRN.HERB - 05/10/2024 12:43 PM EDT This note was created using NoteWriter. Subjective Bower E Karena is a 78 year old male. Patient presents with: Hospital F/U Was seen yesterday for sob and postop pain Pt states he feels better today Was found to have pericardial effusion and has follow up with cardio Is est care with pcp in [place] as well this month. Per ER note should watch LFT's Unsure what medications he's on The history is provided by the patient. No sign language teacher was used. Review of Systems Constitutional: Negative for appetite change, chills, diaphoresis, fatigue and fever. HENT: Negative for tinnitus. Eyes: Negative for photophobia and visual disturbance. Respiratory: Negative for cough, chest tightness, shortness of breath and wheezing. Cardiovascular: Negative for chest pain, palpitations and leg swelling. Gastrointestinal: Negative. Genitourinary: Negative. Musculoskeletal: Negative for myalgias. Skin: Negative for rash. Neurological: Negative for dizziness, syncope, weakness, light-headedness, numbness and headaches. Psychiatric/Behavioral: Negative for dysphoric mood, self-injury, sleep disturbance and suicidal ideas. The patient is not nervous/anxious. All other systems reviewed and are negative. Objective BP 135/84 (BP Site: Left Arm, BP Position: Sitting, BP Cuff Size: Regular Adult) Pulse 101 Ht 167.6 cm (5' 6) Wt 96.6 kg (213 lb) SpO2 97% BMI 34.38 kg/m PAST MEDICAL HISTORY No date: Hyperlipidemia No date: Hypertension History reviewed. No pertinent surgical history. Current Outpatient Medications on File Prior to Visit Medication Sig pravastatin (PRAVACHOL) 40 mg tablet Take 40 mg by mouth daily at bedtime. hydroCHLOROthiazide 12.5 mg tablet 12.5 mg. losartan (COZAAR) 50 mg tablet Take 50 mg by mouth once daily. Omeprazole 40 mg capsule Take 40 mg by mouth once daily. No current facility-administered medications on file prior to visit. ALLERGIES No Known Allergies Physical Exam Vitals and nursing note reviewed. Constitutional: General: He is awake. He is not in acute distress. Appearance: Normal appearance. He is well-developed. He is obese. He is not ill-appearing. HENT: Head: Normocephalic. Eyes: General: Lids are normal. Conjunctiva/sclera: Conjunctivae normal. Pupils: Pupils are equal, round, and reactive to light. Cardiovascular: Rate and Rhythm: Regular rhythm. Tachycardia present. Pulses: Normal pulses. Heart sounds: Normal heart sounds. Pulmonary: Effort: Pulmonary effort is normal. No respiratory distress. Breath sounds: Normal breath sounds. No decreased breath sounds or wheezing. Musculoskeletal: General: No swelling. Normal range of motion. Right lower leg: No edema. Left lower leg: No edema. Skin: General: Skin is warm and dry. Capillary Refill: Capillary refill takes less than 2 seconds. Findings: No rash. Neurological: General: No focal deficit present. Mental Status: He is alert and oriented to person, place, and time. Mental status is at baseline. Cranial Nerves: No cranial nerve deficit. Sensory: Sensation is intact. No sensory deficit. Motor: Motor function is intact. No weakness. Coordination: Coordination is intact. Gait: Gait is intact. Gait normal. Psychiatric: Attention and Perception: Attention and perception normal. Mood and Affect: Mood and affect normal. Speech: Speech normal. Behavior: Behavior normal. Behavior is cooperative. Thought Content: Thought content normal. Thought content does not include homicidal or suicidal ideation. Cognition and Memory: Cognition and memory normal. Judgment: Judgment normal. ASSESSMENT/PLAN: 1. Elevated bilirubin - ICD9: 277.4, ICD10: R17 (primary diagnosis) - COMPREHENSIVE METABOLIC PANEL 2. Elevated LFTs - ICD9: 790.6, ICD10: R79.89 - COMPREHENSIVE METABOLIC PANEL Follow up with cardio and pcp, as needed or sooner if new or worsening symptoms. Mirna Clancy APRN.HERB documented in this encounterCleveland Clinic [facility]08-02-2024 NoteHNO ID: [id number] Author: RG HAN APRN.CNP Service: Gastroenterology Author Type: Nurse Practitioner Type: Plan of Care Filed: 04/29/2024 18:54 Note Text: S/p ERCP with Dr. Aj today Impression: - The major papilla was located entirely within a diverticulum. Precut with needle knife, Significant bleeding. - Choledocholithiasis was found. Complete removal was accomplished by biliary sphincterotomy and balloon extraction. - A biliary sphincterotomy was performed. - The biliary tree was swept. - One covered metal stent was placed into the common bile duct to successfully control post sphincterotomy bleed. Recommendation: - Resume previous diet. - Continue present medications. - Repeat ERCP in 2 months to remove stent.[facility] [id number] NoteHNO ID: [id number] Author: KARRI TERRY APRN.CNP Service: Hospital Medicine Author Type: Nurse Practitioner Type: Progress Notes Filed: 04/29/2024 13:23 Note Text: DEPARTMENT OF HOSPITAL MEDICINE PROGRESS NOTE SERVICE DATE: 04/29/2024 SERVICE TIME: 1:21 PM Hospital Medicine/Primary Attending: Monica Monroe MD NIGHT AND WEEKEND COVERAGE: [place] COVERAGE: [id number] please page / Epic Chat me directly. Nights please page [phone] Subjective INTERVAL HPI: Pt reports significant amounts of diarrhea overnight, has tapered off this morning. Abdominal pain is significantly improved. Reports no hemoptysis since admission, but states it is normally intermittent in nature. Current Facility-Administered Medications Medication Dose Route Frequency NaCl 0.9% iv flush bag 20 mL INTRAVENOUS PRN NaCl 0.9% iv infusion 100 mL/hr INTRAVENOUS CONTINUOUS Objective PHYSICAL EXAM: BP 138/74 Pulse 93 Temp (Src) 98.2 (Oral) Resp 16 Ht 5' 7 (1.70m) Wt 218 lb 4.8 oz (99.0kg) SpO2 95% BMI 34.18 kg/(m2). O2 Therapy: Room Air Physical Exam Performed General: NAD, resting comfortably in bed, polite and cooperative HEENT: Normocephalic, atraumatic, Pupils are equal, round, and reactive to light, EOMI, Mucus membranes moist, tongue is pink and midline Neck: Supple, trachea midline Lungs: CTA bilaterally without wheezes, rales, rhonchi. Unlabored respiratory effort Heart: Regular rate and rhythm without ectopy, no M/R/G Abdomen: Soft, nontender, bowel sounds present in all de jesus, no HSM, no rebound or guarding. Musculoskeletal: Normal muscle bulk and tone. Appears to have full ROM of the UE/LE without deficit. Vascular: Cap refill brisk less than 2 sec. No cyanosis or edema. Neuro: CN II-XII intact. Answers all questions appropriately. 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 Initially was having sharp RUQ pain and epigastric pain after eating. Also reporting cough over the past month with occasional blood-tinged sputum. ED workup with CT abdomen showing 1.4 cm noncalcified calculus versus mass in the distal CBD with intrahepatic and extrahepatic biliary dilation. Incidental findings of bladder wall thickening recommending UA to rule out cystitis, left adrenal myelo lipoma, left renal cyst, diverticuli, prominent prostate. RUQ US done showing intrahepatic and extrahepatic biliary dilation and filling defect in the distal CBD. CBC with no leukocytosis. Bilirubin 4.6, ALP 442, AST 185, ALT 186, lipase 27. Transferred to [place] for GI consult with advanced endoscopy. Principal Problem: Choledocholithiasis / Elevated LFTs / Common bile duct dilation / Diarrhea Assessment AND Plan: Presenting with RUQ pain x [address] abdomen with 1.4 cm noncalcified calculus versus mass in distal CBD with subsequent biliary tree dilation. RUQ US again showing intrahepatic and extrahepatic duct dilation with filling to fact in distal CBD LFTs significantly elevated, bilirubin 4.6, ALP 442, AST 185, ALT 186, lipase 27. No leukocytosis Bilirubin trending up. -GI consulted and planning for EGD/ERCP 04/29 -Low concern for cholangitis at this time, afebrile, WBC normal -Stool studies: C. Difficile negative, enteric panel negative, calprotectin Active Problems: Cough with hemoptysis / Chronic cough / Lung nodule Assessment AND Plan: Consistent cough with blood-tinged sputum for 1 month. -CT chest with one <6mm nodule that will need 1 year follow up, no other acute findings to explain hemopysis Essential hypertension Assessment AND Plan: -Hold home losartan and HCTZ for now Bladder wall thickening Assessment AND Plan: Incidental finding on CT -Urinalysis pending Benign prostatic hyperplasia with nocturia Assessment AND Plan: Enlarged prostate seen on CT -Follow-up with PCP for further testing and considering PSA Myelolipoma of left adrenal gland Asses (more content not included)...[id number] NoteHNO ID: [id number] Author: DAJUAN BONNER RN Service: Care Management Author Type: Registered Nurse Type: Care Mgt Progress Note Filed: 04/29/2024 10:25 Note Text: CARE MANAGEMENT WEEKEND PLANNING NOTE DISCHARGE OR POSSIBLE DISCHARGE Date/Time: TBD Disposition: Home with no skilled needs Transport: Car Other Concerns: Patient scheduled for ERCP and EGD today at 1600. Patient receiving IVF. Weekend Floral Designer Salesperson Pager #: Thursday - Melonie Johnson RN [phone] Thursday - RIP Colon [phone] SIGNATURE: Dajuan Bonner RN PATIENT NAME: Diana Thurston DATE: April 29, 2024 TIME: 10:23 AM PAGER/CONTACT #: [phone] [id number] NoteHNO ID: [id number] Author: KARRI TERRY APRN.CNP Service: Hospital Medicine Author Type: Nurse Practitioner Type: Progress Notes Filed: 04/28/2024 15:02 Note Text: DEPARTMENT OF HOSPITAL MEDICINE PROGRESS NOTE SERVICE DATE: 04/28/2024 SERVICE TIME: 2:38 PM Hospital Medicine/Primary Attending: Estelita Urrutia MD NIGHT AND WEEKEND COVERAGE: [place] COVERAGE: 0730-5:30 please page / Epic Chat me directly. Nights please page [phone] Subjective INTERVAL HPI: Pt reports significant amounts of diarrhea overnight, has tapered off this morning. Abdominal pain is significantly improved. Reports no hemoptysis since admission, but states it is normally intermittent in nature. Current Facility-Administered Medications Medication Dose Route Frequency NaCl 0.9% iv flush bag 20 mL INTRAVENOUS PRN NaCl 0.9% iv infusion 100 mL/hr INTRAVENOUS CONTINUOUS iv contrast (radiology procedure) INTRAVENOUS DIRECTED PRN Objective PHYSICAL EXAM: BP 129/67 Pulse 73 Temp (Src) 97.5 (Oral) Resp 16 Ht 5' 7 (1.70m) Wt 218 lb 4.8 oz (99.0kg) SpO2 95% BMI 34.18 kg/(m2). O2 Therapy: Room Air Physical Exam Performed General: NAD, resting comfortably in bed, polite and cooperative HEENT: Normocephalic, atraumatic, Pupils are equal, round, and reactive to light, EOMI, Mucus membranes moist, tongue is pink and midline Neck: Supple, trachea midline Lungs: CTA bilaterally without wheezes, rales, rhonchi. Unlabored respiratory effort Heart: Regular rate and rhythm without ectopy, no M/R/G Abdomen: Soft, nontender, bowel sounds present in all de jesus, no HSM, no rebound or guarding. Musculoskeletal: Normal muscle bulk and tone. Appears to have full ROM of the UE/LE without deficit. Vascular: Cap refill brisk less than 2 sec. No cyanosis or edema. Neuro: CN II-XII intact. Answers all questions appropriately. 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 Initially was having sharp RUQ pain and epigastric pain after eating. Also reporting cough over the past month with occasional blood-tinged sputum. ED workup with CT abdomen showing 1.4 cm noncalcified calculus versus mass in the distal CBD with intrahepatic and extrahepatic biliary dilation. Incidental findings of bladder wall thickening recommending UA to rule out cystitis, left adrenal myelo lipoma, left renal cyst, diverticuli, prominent prostate. RUQ US done showing intrahepatic and extrahepatic biliary dilation and filling defect in the distal CBD. CBC with no leukocytosis. Bilirubin 4.6, ALP 442, AST 185, ALT 186, lipase 27. Transferred to [place] for GI consult with advanced endoscopy. Principal Problem: Choledocholithiasis / Elevated LFTs / Common bile duct dilation / Diarrhea Assessment AND Plan: Presenting with RUQ pain x [address] abdomen with 1.4 cm noncalcified calculus versus mass in distal CBD with subsequent biliary tree dilation. RUQ US again showing intrahepatic and extrahepatic duct dilation with filling to fact in distal CBD LFTs significantly elevated, bilirubin 4.6, ALP 442, AST 185, ALT 186, lipase 27. No leukocytosis -GI consulted and planning for EGD/ERCP 04/29 -Low concern for cholangitis at this time, afebrile, WBC normal -Stool studies: C. difficile, enteric panel, calprotectin Active Problems: Cough with hemoptysis / Chronic cough Assessment AND Plan: Consistent cough with blood-tinged sputum for 1 month. -CT chest Essential hypertension Assessment AND Plan: -Hold home losartan and HCTZ for now Bladder wall thickening Assessment AND Plan: Incidental finding on CT -Urinalysis pending Benign prostatic hyperplasia with nocturia Assessment AND Plan: Enlarged prostate seen on CT -Follow-up with PCP for further testing and considering PSA Myelolipoma of left adrenal gland Assessment AND Plan: Macroscopic fat-containing left adrenal nodule measuring up to 2.1 cm in s (more content not included)...[facility] [id number] NoteHNO ID: [id number] Author: DAJUAN BONNER RN Service: Care Management Author Type: Registered Nurse Type: Care Mgt Initial Assessment Filed: 04/28/2024 11:47 Note Text: CARE MANAGEMENT: ASSESSMENT AND DISCHARGE PLAN SERVICE DATE: April 28, 2024 SERVICE TIME: 11:46 AM PCP: Brad Moody MD Primary Contact: Extended Emergency Contact Information Primary Emergency Contact: DavidNatashah Mobile Relation: Daughter Admission Status: Observation Insurance Provider: [employer] MEDICARE PPO Discharge Planning requested by: Per Department Practice Potential Transition Plans Home Advance Directives Current Advance Directive: None Drafter Mechanical Attempted to Assist with AD Completion: Yes Action: Education Provided Current Living Arrangements and Support Lives with: Alone Type of Residence: Private Residence (House) Support: Family members, Friends/neighbors How do you manage to accomplish the following: Independent: Ambulation;Bathe/Shower;Dress;Meals/Meal Prep;Going to the bathroom;Medication Management;Transportation to appointments/community Current Services/Equipment Current Post-Acute Service(s): DME Current DME Type: Cane Discharge Planning Patient Goal(s): Be able to go home, General wellness, Less pain [place] of [place] Explained: [place] of [place] Given: No Reason Not Given: No placements necessary Are you interested in bedside delivery of your medications? Yes Discharge Planning Participant(s): Patient Caregiver Assessment: Caregiver is ready, willing and able to meet the patient's needs as recommended by the inter-professional team: No Caregiver needed Transport at Discharge: Transportation Arrangements: Car Destination: Home Needs Prior to Discharge: Needs Prior to Discharge: To Be Determined Post-Acute Discharge Plan: CM met with patient at bedside to complete assessment. Patient is a 78 y/o male admitted for abdominal pain. PMHx of HTN and HLD. Patient lives at home alone. Patient ambulates independently without device. Patient reports independence with ADLs/iADLs and drives. No transitional care needs identified at this time. Patient reports his car is at [facility] and will arrange his own transportation there to retrieve his car. remains available for plan of care and discharge planning needs as they arise. SIGNATURE: Dajuan Bonner RN PATIENT NAME: Diana Thurston DATE: April 28, 2024 TIME: 11:46 AM CONTACT #: [phone] [id number] Telephone encounter Note* Telephone Encounter - Leslie Artis MD - 04/27/2024 2:45 PM EDT In [place] ER with Nausea for 4 weeks - elev LFTs, CT abd with 1.4 cm mass vs stone in distal CBD. Hx cholecystectomy. Needs EUS/ERCP at . Leslie Artis MD [facility] Work Phone: [phone]) 645-325707-31-2024 Miscellaneous Notes* Telephone Encounter - Leslie Artis MD - 04/27/2024 2:45 PM EDT In [place] ER with Nausea for 4 weeks - elev LFTs, CT abd with 1.4 cm mass vs stone in distal CBD. Hx cholecystectomy. Needs EUS/ERCP at . Leslie Artis MD [facility] Hospital Discharge instructions Patient Education 03/21/2024 12:55:56 Flank Pain, Uncertain Cause Flank Pain, Uncertain Cause The flank is the area between your upper abdomen and your back. Pain there is often caused by a problem with your kidneys. It might be a kidney infection or a kidney stone. Other causes of flank paininclude spinal arthritis, a pinched nerve from a back injury, or a back muscle strain or spasm. The cause of your flank pain is not certain. You may need other tests. Home care Follow these tips when caring for yourself at home: You may use acetaminophen or ibuprofen to control pain, unless your health care provider prescribedanother medicine. If you have chronic liver or kidney disease, talk with your provider before taking these medicines. Also talk with your provider first if you ve ever had a stomach ulcer or GI bleeding. If the pain is coming from your muscles, you may get relief with ice or heat. During the first 2 days after the injury, put an ice pack on the painful area for 20 minutes every 2 to 4 hours. This will reduce swelling and pain. A hot shower, hot bath, or heating pad works well for a muscle spasm. You can start with ice, then switch to heat after 2 days. You might find that alternating ice and heatworks well. Use the method that feels the best to you. Follow-up care Follow up with your healthcare provider if your symptoms don t get better over the next few days. When to seek medical advice Call your healthcare provider right away if any of these happen: Repeated vomiting Fever of 100.4 F (38 C) or higher, or as directed by your health care provider Flank pain that gets worse Pain that spreads to the front of your belly (abdomen) Dizziness, weakness, or fainting Blood in your urine Burning feeling when you urinate or the need to urinate often Pain in one of your legs that gets worse Numbness or weakness in a leg [id number] [employer]. [address] [place] [address]. All rights reserved. This information is not intended as a substitute for professional medical care. Always follow yourhealthcare professional's instructions. Follow Up Care 03/21/2024 10:04:59 With:RUFINO BRO MD Address: [address] [address] [phone] When:2-4 days With:Call Physician Referral Address:Unknown When:2-4 days With:PRICE KEY DO Address: [address] [facility] [place] [address]- [phone] When:2-4 days [facility] 06-24-2024 Note Discharge Instructions Thank you for allowing [facility] to assist you with your healthcare needs. The following is importantdischarge information regarding your hospital visit. What to Do Next Instructions from Your Care Team No qualifying data available. Post Acute Orders No qualifying data available. You Need to Schedule the Following Appointments Follow Up with Call Physician Referral When:Within 2-4 days Follow Up with PRICE KEY DO When:Within 2-4 days Where:[address] [facility] [place] [address]- [phone] Allergies No Known Medication Allergies Medications Please ask your primary doctor or pharmacist before taking any other medication not listed, including over the counter drugs, herbal medications, vitamins and or supplements as they may interact withyour home medications. What How Much When Instructions Last Dose Unchanged hydroCHLOROthiazide (hydroCHLOROthiazide 12.5 mg oral tablet) 1 tab(s) by mouth Once a day Unchanged losartan (losartan 50 mg oral tablet) 1 tab(s) by mouth Two (2) times a day Unchanged pravastatin (pravastatin 40 mg oral tablet) 1 tab(s) by mouth Daily at bedtime Please take this list to your next doctor s visit. Bring all medications you take, including over the counter medications, herbals and other supplements with you to your doctor s visit. Patients and families are reminded to discard old lists and to update any records with all medication providers or retail pharmacies. Education Materials Flank Pain, Uncertain Cause The flank is the area between your upper abdomen and your back. Pain there is often caused by a problem with your kidneys. It might be a kidney infection or a kidney stone. Other causes of flank paininclude spinal arthritis, a pinched nerve from a back injury, or a back muscle strain or spasm. The cause of your flank pain is not certain. You may need other tests. Home care Follow these tips when caring for yourself at home: You may use acetaminophen or ibuprofen to control pain, unless your health care provider prescribedanother medicine. If you have chronic liver or kidney disease, talk with your provider before taking these medicines. Also talk with your provider first if you ve ever had a stomach ulcer or GI bleeding. If the pain is coming from your muscles, you may get relief with ice or heat. During the first 2 days after the injury, put an ice pack on the painful area for 20 minutes every 2 to 4 hours. This will reduce swelling and pain. A hot shower, hot bath, or heating pad works well for a muscle spasm. You can start with ice, then switch to heat after 2 days. You might find that alternating ice and heatworks well. Use the method that feels the best to you. Follow-up care Follow up with your healthcare provider if your symptoms don t get better over the next few days. When to seek medical advice Call your healthcare provider right away if any of these happen: Repeated vomiting Fever of 100.4 F (38 C) or higher, or as directed by your health care provider Flank pain that gets worse Pain that spreads to the front of your belly (abdomen) Dizziness, weakness, or fainting Blood in your urine Burning feeling when you urinate or the need to urinate often Pain in one of your legs that gets worse Numbness or weakness in a leg [id number] [employer]. [address] [place] [address], [place] [address]. All rights reserved. This information is not intended as a substitute for professional medical care. Always follow yourhealthcare professional's instructions. Additional Information VACCINATE! IT SAVES LIVES! Members of the community who have not yet received the COVID-19 vaccine and would like to receive it can visit one of [facility] vaccine clinics. There are many vaccine clinic locations within the [facility]. For locations and available times, please visit www.gettheshot.coronavirus.[place].gov/. It is important to note that some COVID mobile vaccine clinics are held outdoors and may be canceled in rainy or stormy conditions. To learn more about pediatric vaccinations (ages 5-11), we invite you to visit the [facility] webpage. [email or web address].[email or web address]/[email or web address] stions.htmlTo learn more about the COVID-19 vaccine, we invite you to visit the CDC website for a list of frequently asked questions. https://www.cdc.gov/coronavirus/2019-ncov/vaccines/faq.html [facility] Patient Portal Access Instructions: Stay connected with your healthcare team and access your personal medical information anytime with the [facility] Patient Portal. If you would like a full copy of your medical records please contact the [facility] Medical Records Department Thursday through Thursday between 8a.m. and 4:30p.m. Please follow the directions below to access the portal: 1.Access the email account you provided upon registration to the [facility].2.Look for an invitation email from [facility].3.Open the email and access the invitation link: [facility] to [facility]4.Fill in the required de jesus to create your account. Sign into [email or web address] with your username and password that you created in the above steps to stay up to date. You can then view a summary of results, a summary of your visits, and the ability to download your summaries to your computer or send the information securely to a physician. Remember that your healthcare information is confidential, so carefully consider who you will allow to register on the [facility] Patient Portal for access to your information. You can also access the [facility] Patient Portal on the spigit. Simply click on Health Records under Dragonplay and then click on the [facility] logo. HOW TO SAFELY DISPOSE OF PRESCRIPTION MEDICATIONS Please use one of the following methods to safely dispose of your unused medications. 1.Use a drug disposal kit: the drug disposal pouch allows you to safely discard your old and unuseddrugs. Ask your nurse to give you one when you are discharged.2.Visit a local take-back location: Many local pharmacies and police departments have programs that collect old and unwanted prescriptiondrugs. Call your local pharmacy or go to http://[employer]/5J5Gb8z to find one close to you.3.Make use of household items: Use cat litter or old coffee grounds to dispose medications if other options arenot available. Mix your drugs with these household products, seal them in an airtight container andthrow it into the garbage. Call [facility]: [phone] to be sure your drugs can be disposed of in this way. Some medicines may require a different approach.4.Never flush your medications down the toilet. IF YOU HAVE BEEN PRESCRIBED AN OPIOIDS FOR PAIN If you have been prescribed an opioid (such as hydrocodone, oxycodone or morphine), it is critical to understand the possible side effects and risks of opioid pain medications. Even when taken as directed, opioids can have several side effects including: Tolerance, meaning you might need to take more of a medication for the same pain relief. Nausea, vomiting and/or constipation. Sleepiness, dizziness, dry mouth, confusion, depression or itching. Physical dependence, meaning you have withdrawal symptoms when a medication is stopped ? this can develop within a few days. KNOW YOUR RESPONSIBILITIES It is important to know exactly how much and how often to take the opioid pain medications you are prescribed. Never take opioids in higher amounts or more often than prescribed. Do not combine opioids with alcohol or other drugs that cause drowsiness, such as benzodiazepines, also known as benzos,including diazepam and alprazolam, muscle relaxants or sleep aids. Never sell or share prescriptionopioids. This is illegal. Store opioids in a secure place and out of reach of others (including children, family, friends and visitors). The last page(s) of this document has been signed and retained as a CHART COPY Signatures Patient Education Materials Flank Pain, Uncertain Cause Medication Leaflets My discharge plan and instructions have been reviewed and explained to me and IKARENA WARD E understand my current condition and have read and understand these discharge instructions. I have received a written copy of the plan/instructions. If I have questions, I am aware that I should contact my d octor. Patient/Dry Curer Signature: Date/Time: Relationship to Patient: Witness Name/Signature: Date/Time: [facility]06-24-2024 Note ORIGINAL EXAMINATION: CT OF THE ABDOMEN AND PELVIS WITH CONTRAST03/21/2024 11:08 am TECHNIQUE: CT of the abdomen and pelvis was performed with the administration of intravenous contrast. Multiplanar reformatted images are provided for review. Automated exposure control, iterative reconstruction, and/or weight based adjustment of the mA/kV was utilized to reduce the radiation dose to as low as reasonably achievable. COMPARISON: CT abdomen pelvis 11/26/2023 HISTORY: ORDERING SYSTEM PROVIDED HISTORY: Reason for Exam: Pt c/o rt flank pain starting this morning. States he passed a kidney stone last month. abdominal pain. history of bladder cancer in 2007 FINDINGS: The included lung bases show similar appearance of right basilar atelectasis with small calcification. There is no visible pleural or pericardial effusion. The heart is normal in size. Central and peripheral intrahepatic biliary dilatation. Common bile duct is dilated measuring 15 mm in intrapancreatic part. A small isodense structure seen within the CBD/region of ampulla measuring approximately 12 mm. Otherwise the liver is unremarkable, no focal liver lesions seen. Two Left adrenal gland macroscopic fat containing lesion largest measuring approximately 26 mm are unchanged. The spleen, right adrenal gland, and pancreas are within normal limits. No obvious dilatation of pancreatic duct seen. Hypodense structure measuring approximately 4.0 cm containing air foci seen on pancreaticoduodenal region is likely a duodenal diverticulum. The gallbladder is surgically absent. The kidneys enhance symmetrically. No evidence of hydronephrosis. Left renal upper pole simple cyst measuring 23 mm unchanged. Interval decrease in left perinephric fat stranding. There is right renal perinephric fat stranding and pararenal facial thickening. Right posterolateral abdominal wall hernia containing fat with a defect size of 85 mm. The large and small bowel demonstrate no obstruction. Mild scattered diverticulosis without diverticulitis. The appendix is normal. No free intraperitoneal fluid or gas is identified. The aorta is normal in caliber, shows moderate to severe mixed calcified and atheromatous plaques. There is no lymphadenopathy. The prostate is unremarkable. No filling defects seen in the urinary bladder. Bilateral small fat containing inguinal hernias. There is no acute fracture or aggressive osseous lesion. Few scattered sclerotic densities within the pelvic bones and sacrum are stable, likely bone islands. IMPRESSION: 1. No evidence of obstructive uropathy. Stable appearance of right perirenal fat stranding which is likely nonspecific. Interval improvement of left renal hydronephrosis and perirenal fat stranding. 2. Post cholecystectomy, with intra and extrahepatic biliary dilatation. 3. 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 4. Unchanged appearance of large right lateral hernia. 5. 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 I have personally reviewed the images of this examination and agree with the resident's findings and interpretation. Interpreted by: Con Lara MD Preliminary Report By: Mal Villasenor Electronically signed By Con Lara MD Dictated Date: 03/21/2024 11:09:49 AM Prelim Date: 03/21/2024 12:40:26 PM Sign Date: 03/21/2024 12:40:26 PM Ordering Provider: [facility]06-[facility]-2024 Note ORIGINAL EXAMINATION: RIGHT UPPER QUADRANT ULTRASOUND 03/02/2024 8:06 am COMPARISON: CT abdomen pelvis without contrast 11/26/2023 HISTORY: ORDERING SYSTEM PROVIDED HISTORY: Reason for Exam: elevated liver enzymes, evaluate for fatty liver or other causes FINDINGS: LIVER: The liver demonstrates diffuse increased echogenicity with mild intrahepatic bile duct prominence. There is no hepatic mass. BILIARY SYSTEM: Gallbladder is surgically absent. Common bile duct is prominent measuring 14.3 mm dimension. RIGHT KIDNEY: The right kidney is grossly unremarkable without evidence of hydronephrosis. Right kidney measures 12.4 x 6.2 x 5.1 cm. There is no hydronephrosis or stone disease. PANCREAS: Visualized portions of the pancreas are diffusely increased in echotexture. No solid or cystic lesion affects the pancreatic head. OTHER: No evidence of right upper quadrant ascites. IMPRESSION: 1. No solid or cystic lesion affecting the pancreatic head. Previous CT finding is not confirmed. 2. Fatty infiltration of the liver. 3. Prominence of the common bile duct and intrahepatic bile ducts. This may be related to prior cholecystectomy. If there is clinical concern for choledocholithiasis, MRCP or ERCP could be obtained for further evaluation. Interpreted by: Wilian Dexter DO Preliminary Report By: Wilian Dexter DO Electronically signed By Wilian Dexter DO Dictated Date: 03/02/2024 3:25:22 PM Prelim Date: 03/02/2024 3:29:07 PM Sign Date: 03/02/2024 3:29:07 PM Ordering Provider: [facility] [id number] Hospital Discharge instructions Patient Education 11/26/2023 23:50:55 Kidney Stone w/ Colic Kidney Stone with Pain The sharp cramping pain on either side of your lower back and nausea/vomiting that you have are because of a small stone that has formed in the kidney. It is now passing down a narrow tube (ureter) on its way to your bladder. Once the stone reaches your bladder, the pain will often stop. But it maycome back as the stone continues to pass out of the bladder and through the urethra. The stone may pass in your urine stream in one piece. The size may be 1/16 inch to 1/4 inch (1 mm to 6 mm). Or, the stone may break up into eriberto fragments that you may not even notice. Once you have had a kidney stone, you are at risk of getting another one in the future. There are 4types of kidney stones. Eighty percent are calcium stones mostly calcium oxalate but also some withcalcium phosphate. The other 3 types include uric acid stones, struvite stones (from a preceding infection), and rarely, cystine stones. Most stones will pass on their own, but may take from a few hours to a few days. Sometimes the stone is too large to pass by itself. In that case, the healthcare provider will need to use other ways to remove the stone. These techniques include: Lithotripsy. This uses ultrasound waves to break up the stone. Ureteroscopy. This pushes a basket-like instrument through the urethra and bladder and into the ureter to pull out the stone. Various types of direct surgery through the skin Home care The following are general care guidelines: Drink plenty of fluids. This means at least 12, 8-ounce glasses of fluid mostly water a day. Each time you urinate, do so in a jar. Pour the urine from the jar through the strainer and into the toilet. Continue doing this until 24 hours after your pain stops. By then, if there was a kidney stone, it should pass from your bladder. Some stones dissolve into sand-like particles and pass rightthrough the strainer. In that case, you won t ever see a stone. Save any stone that you find in the strainer and bring it to your healthcare provider to look at. It may be possible to stop certain types of stones from forming. For this reason, it is important to know what kind of stone you have. Try to stay as active as possible. This will help the stone pass. Don't stay in bed unless your pain keeps you from getting up. You may notice a red, pink, or brown color to your urine. This is normal while passing a kidney stone. If you develop pain, you may take ibuprofen or naproxen for pain, unless another medicine was prescribed. If you have chronic liver or kidney disease, talk with your healthcare provider before takingthese medicines. Also talk with your provider if you've had a stomach ulcer or GI bleeding. Preventing stones Each year for the next 5 to 7 years, you are at risk that a new stone will form. Your risk is a 50%chance over this time period. The risk is higher if you have a family history of kidney stones or have certain chronic illnesses like hypertension, obesity, or diabetes. But you can make changes to your lifestyle and diet that can lower your risk for another stone. Most kidney stones are made of calcium. The following is advice for preventing another calcium stone. If you don t know the type of stone you have, follow this advice until the cause of your stone isfound. Things that help: The most important thing you can do is to drink plenty of fluids each day. See home care above. Eat foods that contain phytates. These include wheat, rice, rye, barley, and beans. Phytates are substances that may lower your risk for any type of stone to form. Eat more fruits and vegetables. Choose those that are high in potassium. Eat foods high in natural citrate like fruit and low-sugar fruit juices. Having too little calcium in your diet can put you at risk for calcium kidney stones. Eat a normal amount of calcium in your diet and talk with your healthcare provider if you are taking calcium supplements. Cutting back on your calcium intake may raise your risk. New research shows that eating calcium-rich and oxalate-rich foods together lowers your risk for stones by binding the minerals in thestomach and intestines before they can reach the kidneys. Limit salt intake to 2 grams (1 teaspoon) per day. Use limited amounts when cooking, and don t add salt at the table. Processed and canned foods are usually high in salt. Spinach, rhubarb, peanuts, cashews, almonds, grapefruit, and grapefruit juice are all high oxalate foods. You should limit how much of these you eat. Or eat them with calcium-rich foods. These include dairy products, dark leafy greens, soy products, and calcium-enriched foods. Reducing the amount of animal meat and high protein foods in your diet may lower your risk for uricacid stones. Avoid excess sugar (sucrose) and fructose (sweetener in many soft drinks) in your diet. If you take vitamin C as a supplement, don't take more than 1,000 mg a day. A dietitian or your healthcare provider can give you information about changes in your diet that will help prevent more kidney stones from forming. Follow-up care Follow up with your healthcare provider, or as advised, if the pain lasts more than 48 hours. Talk with your provider about urine and blood tests to find out the cause of your stone. If you had an X-ray, CT scan, or other diagnostic test, you will be told of any new findings that may affect your care. Call 911 Call 911 if you have any of these: Weakness, dizziness, or fainting When to seek medical advice Call your healthcare provider right away if any of these occur: Pain that is not controlled by the medicine given Repeated vomiting or unable to keep down fluids Fever of 100.4 F (38 C) or higher, or as directed by your healthcare provider Passage of solid red or brown urine (can't see through it) or urine with lots of blood clots Foul-smelling or cloudy urine Unable to pass urine for 8 hours and increasing bladder pressure [id number] [employer]. [address] [place] [address]. All rights reserved. This information is not intended as a substitute for professional medical care. Always follow yourhealthcare professional's instructions. Follow Up Care 11/26/2023 20:41:19 With:MARGARETH IVAN Address: [address] [place] [phone] Business (1) When:2-4 days Comments:Schedule an appointment for follow-up if symptoms persist.Push fluids, bland diet as tolerated. Strain your urine.Use Tylenol, Advil or Aleve for pain and fever as needed.Use Byram as prescribed for severe pain, Zofran for nausea vomiting and Flomax to help with urine outflow.Return to the ED if symptoms worsen. [facility] 02-29-2024 Note Discharge Instructions Thank you for allowing [facility] to assist you with your healthcare needs. The following is importantdischarge information regarding your hospital visit. Diagnosis from Today's Visit Back pain Dizziness Nausea Renal colic on left side What to Do Next Instructions from Your Care Team No qualifying data available. Post Acute Orders No qualifying data available. You Need to Schedule the Following Appointments Follow Up with MARGARETH IVAN When Within 2-4 days Why: Schedule an appointment for follow-up if symptoms persist. Push fluids, bland diet as tolerated. Strain your urine. Use Tylenol, Advil or Aleve for pain and fever as needed. Use Byram as prescribed for severe pain, Zofran for nausea vomiting and Flomax to help with urine outflow. Return to the ED if symptoms worsen. Where: [address] [place] [phone] Business (1) Allergies No Known Medication Allergies Medications Please ask your primary doctor or pharmacist before taking any other medication not listed, including over the counter drugs, herbal medications, vitamins and or supplements as they may interact withyour home medications. What How Much When Why Instructions Last Dose New acetaminophen-hydrocodone (Byram 325- 5 mg oral tablet) 1 tab(s) by mouth Every 6 hours as needed for As needed for severe pain Renal colic on left side Duration: 3 Days Printed Prescription New ondansetron (Zofran 4 mg oral tablet) 1 tab(s) by mouth Every 6 hours as needed for As needed for nausea and vomiting Duration: 3 Days Printed Prescription New tamsulosin (Flomax 0.4 mg oral capsule) 1 cap by mouth Once a day Duration: 7 Days Printed Prescription Unchanged amoxicillin (amoxicillin 500 mg oral capsule) 1 cap by mouth Two (2) times a day Otalgia of left ear Duration: 10 Days Unchanged hydroCHLOROthiazide (hydroCHLOROthiazide 12.5 mg oral tablet) 1 tab(s) by mouth Once a day Unchanged losartan (losartan 50 mg oral tablet) 1 tab(s) by mouth Once a day Unchanged pravastatin (pravastatin 40 mg oral tablet) 1 tab(s) by mouth Daily at bedtime Please take this list to your next doctor s visit. Bring all medications you take, including over the counter medications, herbals and other supplements with you to your doctor s visit. Patients and families are reminded to discard old lists and to update any records with all medication providers or retail pharmacies. Education Materials Kidney Stone with Pain The sharp cramping pain on either side of your lower back and nausea/vomiting that you have are because of a small stone that has formed in the kidney. It is now passing down a narrow tube (ureter) on its way to your bladder. Once the stone reaches your bladder, the pain will often stop. But it maycome back as the stone continues to pass out of the bladder and through the urethra. The stone may pass in your urine stream in one piece. The size may be 1/16 inch to 1/4 inch (1 mm to 6 mm). Or, the stone may break up into eriberto fragments that you may not even notice. Once you have had a kidney stone, you are at risk of getting another one in the future. There are 4types of kidney stones. Eighty percent are calcium stones mostly calcium oxalate but also some withcalcium phosphate. The other 3 types include uric acid stones, struvite stones (from a preceding infection), and rarely, cystine stones. Most stones will pass on their own, but may take from a few hours to a few days. Sometimes the stone is too large to pass by itself. In that case, the healthcare provider will need to use other ways to remove the stone. These techniques include: Lithotripsy. This uses ultrasound waves to break up the stone. Ureteroscopy. This pushes a basket-like instrument through the urethra and bladder and into the ureter to pull out the stone. Various types of direct surgery through the skin Home care The following are general care guidelines: Drink plenty of fluids. This means at least 12, 8-ounce glasses of fluid mostly water a day. Each time you urinate, do so in a jar. Pour the urine from the jar through the strainer and into the toilet. Continue doing this until 24 hours after your pain stops. By then, if there was a kidney stone, it should pass from your bladder. Some stones dissolve into sand-like particles and pass rightthrough the strainer. In that case, you won t ever see a stone. Save any stone that you find in the strainer and bring it to your healthcare provider to look at. It may be possible to stop certain types of stones from forming. For this reason, it is important to know what kind of stone you have. Try to stay as active as possible. This will help the stone pass. Don't stay in bed unless your pain keeps you from getting up. You may notice a red, pink, or brown color to your urine. This is normal while passing a kidney stone. If you develop pain, you may take ibuprofen or naproxen for pain, unless another medicine was prescribed. If you have chronic liver or kidney disease, talk with your healthcare provider before takingthese medicines. Also talk with your provider if you've had a stomach ulcer or GI bleeding. Preventing stones Each year for the next 5 to 7 years, you are at risk that a new stone will form. Your risk is a 50%chance over this time period. The risk is higher if you have a family history of kidney stones or have certain chronic illnesses like hypertension, obesity, or diabetes. But you can make changes to your lifestyle and diet that can lower your risk for another stone. Most kidney stones are made of calcium. The following is advice for preventing another calcium stone. If you don t know the type of stone you have, follow this advice until the cause of your stone isfound. Things that help: The most important thing you can do is to drink plenty of fluids each day. See home care above. Eat foods that contain phytates. These include wheat, rice, rye, barley, and beans. Phytates are substances that may lower your risk for any type of stone to form. Eat more fruits and vegetables. Choose those that are high in potassium. Eat foods high in natural citrate like fruit and low-sugar fruit juices. Having too little calcium in your diet can put you at risk for calcium kidney stones. Eat a normal amount of calcium in your diet and talk with your healthcare provider if you are taking calcium supplements. Cutting back on your calcium intake may raise your risk. New research shows that eating calcium-rich and oxalate-rich foods together lowers your risk for stones by binding the minerals in thestomach and intestines before they can reach the kidneys. Limit salt intake to 2 grams (1 teaspoon) per day. Use limited amounts when cooking, and don t add salt at the table. Processed and canned foods are usually high in salt. Spinach, rhubarb, peanuts, cashews, almonds, grapefruit, and grapefruit juice are all high oxalate foods. You should limit how much of these you eat. Or eat them with calcium-rich foods. These include dairy products, dark leafy greens, soy products, and calcium-enriched foods. Reducing the amount of animal meat and high protein foods in your diet may lower your risk for uricacid stones. Avoid excess sugar (sucrose) and fructose (sweetener in many soft drinks) in your diet. If you take vitamin C as a supplement, don't take more than 1,000 mg a day. A dietitian or your healthcare provider can give you information about changes in your diet that will help prevent more kidney stones from forming. Follow-up care Follow up with your healthcare provider, or as advised, if the pain lasts more than 48 hours. Talk with your provider about urine and blood tests to find out the cause of your stone. If you had an X-ray, CT scan, or other diagnostic test, you will be told of any new findings that may affect your care. Call 911 Call 911 if you have any of these: Weakness, dizziness, or fainting When to seek medical advice Call your healthcare provider right away if any of these occur: Pain that is not controlled by the medicine given Repeated vomiting or unable to keep down fluids Fever of 100.4 F (38 C) or higher, or as directed by your healthcare provider Passage of solid red or brown urine (can't see through it) or urine with lots of blood clots Foul-smelling or cloudy urine Unable to pass urine for 8 hours and increasing bladder pressure [id number] [employer] [address] [place] [address]. All rights reserved. This information is not intended as a substitute for professional medical care. Always follow yourhealthcare professional's instructions. Additional Information VACCINATE! IT SAVES LIVES! Members of the community who have not yet received the COVID-19 vaccine and would like to receive it can visit one of [facility] vaccine clinics. There are many vaccine clinic locations within the [facility]. For locations and available times, please visit www.gettheshot.coronavirus.[place].gov/. It is important to note that some COVID mobile vaccine clinics are held outdoors and may be canceled in rainy or stormy conditions. To learn more about pediatric vaccinations (ages 5-11), we invite you to visit the [facility] webpage. [email or web address].org/pages/[email or web address]-[email or web address] stions.htmlTo learn more about the COVID-19 vaccine, we invite you to visit the CDC website for a list of frequently asked questions. https://www.cdc.gov/coronavirus/2019-ncov/vaccines/faq.html [facility] Access Instructions: Stay connected with your healthcare team and access your personal medical information anytime with the [facility] Patient Portal. If you would like a full copy of your medical records please contact the [facility] Medical Records Department Thursday through Thursday between 8a.m. and 4:30p.m. Please follow the directions below to access the portal: 1.Access the email account you provided upon registration to the [facility].2.Look for an invitation email from [facility].3.Open the email and access the invitation link: Accept Invitation to [facility]4.Fill in the required de jesus to create your account. Sign into [email or web address] with your username and password that you created in the above steps to stay up to date. You can then view a summary of results, a summary of your visits, and the ability to download your summaries to your computer or send the information securely to a physician. Remember that your healthcare information is confidential, so carefully consider who you will allow to register on the [facility] Patient Portal for access to your information. You can also access the [facility] Patient Portal on the [employer]lena. Simply click on Health Records under [employer] and then click on the [facility] logo. HOW TO SAFELY DISPOSE OF PRESCRIPTION MEDICATIONS Please use one of the following methods to safely dispose of your unused medications. 1.Use a drug disposal kit: the drug disposal pouch allows you to safely discard your old and unuseddrugs. Ask your nurse to give you one when you are discharged.2.Visit a local take-back location: Many local pharmacies and police departments have programs that collect old and unwanted prescriptiondrugs. Call your local pharmacy or go to http://[employer]/5M7Gx6x to find one close to you.3.Make use of household items: Use cat litter or old coffee grounds to dispose medications if other options arenot available. Mix your drugs with these household products, seal them in an airtight container andthrow it into the garbage. Call [facility]: [phone] to be sure your drugs can be disposed of in this way. Some medicines may require a different approach.4.Never flush your medications down the toilet. IF YOU HAVE BEEN PRESCRIBED AN OPIOIDS FOR PAIN If you have been prescribed an opioid (such as hydrocodone, oxycodone or morphine), it is critical to understand the possible side effects and risks of opioid pain medications. Even when taken as directed, opioids can have several side effects including: Tolerance, meaning you might need to take more of a medication for the same pain relief. Nausea, vomiting and/or constipation. Sleepiness, dizziness, dry mouth, confusion, depression or itching. Physical dependence, meaning you have withdrawal symptoms when a medication is stopped ? this can develop within a few days. KNOW YOUR RESPONSIBILITIES It is important to know exactly how much and how often to take the opioid pain medications you are prescribed. Never take opioids in higher amounts or more often than prescribed. Do not combine opioids with alcohol or other drugs that cause drowsiness, such as benzodiazepines, also known as benzos,including diazepam and alprazolam, muscle relaxants or sleep aids. Never sell or share prescriptionopioids. This is illegal. Store opioids in a secure place and out of reach of others (including children, family, friends and visitors). The last page(s) of this document has been signed and retained as a CHART COPY Signatures Patient Education Materials Kidney Stone w/ Colic Medication Leaflets My discharge plan and instructions have been reviewed and explained to me and I,KARENA, BOWER understand my current condition and have read and understand these discharge instructions. I have received a written copy of the plan/instructions. If I have questions, I am aware that I should contact my doctor. Patient/Dry Curer Signature: Date/Time: Relationship to Patient: Witness Name/Signature: Date/Time: [facility]02-29-2024 Note ORIGINAL EXAMINATION: CT OF THE ABDOMEN AND PELVIS WITHOUT CONTRAST 11/26/2023 9:53 pm TECHNIQUE: CT of the abdomen and pelvis was performed without the administration of intravenous contrast. Multiplanar reformatted images are provided for review. Automated exposure control, iterative reconstruction, and/or weight based adjustment of the mA/kV was utilized to reduce the radiation dose to as low as reasonably achievable. COMPARISON: None. HISTORY: ORDERING SYSTEM PROVIDED HISTORY: Reason for Exam: LEFT flank pain FINDINGS: Visualized portion of the lower chest demonstrates no acute abnormality. The liver is in normal limits for size and demonstrates a smooth contour. Parenchyma appears grossly minus. Status post cholecystectomy. Mild prominence of the common bile duct. No intrahepatic bile duct dilation. The spleen is normal in appearance. A small rounded soft tissue nodule inferior to the spleen measuring 1.6 cm likely represents a small splenule. At the level of the pancreatic head, there is a 2.5 x 3.1 cm well-circumscribed posteriorly projecting soft tissue prominence. The remainder of the pancreas is normal in appearance. No pancreatic duct dilation. A 1.8 cm rounded lesion is appreciated of the left adrenal gland which demonstrates macroscopic fat, likely representing an adrenal myelolipoma. The right adrenal gland is unremarkable in appearance. The kidneys are within normal limits for size. Asymmetric perinephric stranding is appreciated about the left kidney. There is an exophytic cyst arising from the superior pole of the left kidney measuring approximately 2.0 x 2.1 cm, likely benign. Grade 1 hydronephrosis is appreciated on the left with mild hydroureter. Periureteral stranding is also noted along the left ureter. Mild right perinephric stranding is noted. No hydroureteronephrosis or nephroureterolithiasis is identified. Within the urinary bladder, there is a small focus of hyperdensity along the dependent bladder adjacent to the left UVJ (series 2, image 102) which may represent a calculus. The urinary bladder is decompressed. Small hiatal hernia. Partial distention of the gastric lumen with ingested contents. Bowel gas is noted to the level of the rectum in a nonobstructive pattern. The appendix is visualized and unremarkable. Diverticula are noted within the descending and sigmoid colon without evidence of diverticulitis. No abdominal free air or free fluid. No abdominal or pelvic adenopathy. The abdominal aorta is nonaneurysmal in size with scattered mild calcified atherosclerotic plaque. The osseous structures demonstrate no evidence of acute fracture or aggressive lesion. A large right-sided fat containing lumbar hernia is appreciated. Small bilateral fat containing inguinal hernias. Soft tissues otherwise unremarkable. IMPRESSION: 1. Grade 1-2 left hydroureteronephrosis with perinephric and periureteral stranding. This is associated with a small hyperdensity dependently within the bladder likely represents a recently passed left renal calculus. 2. Abnormal contour of the posterior aspect of the pancreatic head, incompletely characterized on this study. Consider outpatient follow-up with pancreatic protocol MRI/MRCP for further characterization. 3. 1.8 cm left adrenal mass, likely benign adrenal myelolipoma. Interpreted by: Wagner Ritter Preliminary Report By: Wagner Ritter Electronically signed By Wagner Ritter Dictated Date: 11/26/2023 10:59:36 PM Prelim Date: 11/26/2023 11:20:40 PM Sign Date: 11/26/2023 11:20:40 PM Ordering Provider: [facility]03-30-2023 Note [facility] Medical Records Department [address] [place] [address] History Physical Exam 12/25/22 1118 MR#: [id number] Acct: [id number] Name: DIANA THURSTON Rep #: [id number] : 1945 77 From: Luis Antonio Daly MD PCP: Dr. Brad Moody MD Status:[facility] Location: [place] [address] History and Physical Date of Admission: 12/25/22 Intake Vital Signs ??? 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 Required: No Is patient in pain?: No Allergies No Known Allergies Allergy (Verified 12/11/22 13:17) Medications hydrochlorothiazide 12.5 mg tablet 12.5 tab PO DAILY 04/09/22 [History Confirmed 12/11/22] losartan 50 mg tablet 50 mg PO DAILY 04/09/22 [History Confirmed 12/11/22] omeprazole 40 mg capsule,delayed release 40 mg PO DAILY 04/09/22 [History Confirmed 12/11/22] amoxicillin 500 mg-potassium clavulanate 125 mg tablet (Augmentin) 1 tab PO BID #20 tabs 12/04/22 [Rx Confirmed 12/11/22] Subjective Details: Patient reports he is not having any right upper quadrant pain and he is tolerating a diet.??? No nausea or vomiting. Objective Details: Abdomen is soft and nontender with IRENE in place with bilious drainage Coding Level of Care Code Off vis,est,level 3 Diagnoses Acute cholecystitis??? K81.0 PFSH Medical History BPH (benign prostatic hyperplasia) GERD (gastroesophageal reflux disease) Hepatomegaly High cholesterol History of bladder cancer Hx of gastroesophageal reflux (GERD) Hypertension Obesity Tobacco use Surgical History??? H/O chest tube placement H/O hand surgery History of bladder surgery History of surgery of head History of tonsillectomy and adenoidectomy Family History??? Brother Heart disease Hypertension CAD (coronary artery disease) Myocardial infarctionFather Heart disease Hypertension CAD (coronary artery disease) Myocardial infarctionMother Alzheimer disease Social History??? household members:??? none housing:??? house number of children:??? 1 current occupational status:??? retired Smoking Status:??? Current some day smoker tobacco type: cigars how long ago did patient quit smoking:??? Quit 8 years during, started 18 w/ 1 pk/2.5 day until 10 cigar/d x 3 yrs. alcohol intake:??? never substance use type:??? does not use Assessment and Plan (No Qualifiers) Assessment and Plan (1) Acute cholecystitis: ?Status:???Acute ?Plan: Patient was in the hospital with acute cholecystitis and cholecystostomy tube was placed.??? Patient is improving and is tolerating antibiotics well.??? I will plan for laparoscopic cholecystectomy in about 2 weeks. I discussed the procedure in detail with the patient.??? I discussed the risks, benefits, and alternatives of the procedure.??? I discussed the risks including but not limited to bleeding, infection, injury to surrounding organs such as the liver, bile duct, bowels.??? I did discuss the possibility of having to convert to an open procedure as well as the possibility that if any injuries occurred this may necessitate further surgery at a tertiary care center. Luis Antonio Daly MD Pager: [facility] [address] [facility], [place] [address] Office: I have examined the patient and the H P has been reviewed. There are no clinical changes since date of exam. 12/25/22 1118 Cosigner Signature (if applicable): CC: Dr. Luis Antonio Daly MD; Dr. Brad Moody MD [facility] Medical Records Department [address] [place], [place] [id number] Discharge Summary 12/04/22 0937 MR#: [id number] Acct: [id number] Name: DIANA THURSTON Rep #: [id number] : 1945 77 From: Luis Antonio Daly MD PCP: Dr. Brad Moody MD Status:ADM IN [facility] Date of Admission: 12/02/22 Primary Care Physician: Dr. Brad Moody MD Reason For Visit: ACUTE CHOLECYSTITIS Diagnosis Discharge Diagnosis (1) Acute cholecystitis: Status: Acute Code(s): K81.0 - Acute cholecystitis Plan: Patient has acute cholecystitis but I believe it is too risky to perform surgery at this time as the symptoms of been going on for an entire week. I recommend percutaneous cholecystostomy tube and antibiotics. I will start a diet after the cholecystostomy tube was placed. Patient will then be discharged home today or tomorrow with the tube in place and will follow-up in my office to schedule elective cholecystectomy in the future once the gallbladder and colon have calm down. Luis Antonio Daly MD Pager: [facility] [address] [facility] [place], [address] [address] Office: Medications at Discharge Home Medications hydrochlorothiazide 12.5 mg tablet 12.5 tab PO DAILY 04/09/22 losartan 50 mg tablet 50 mg PO DAILY 04/09/22 omeprazole 40 mg capsule,delayed release 40 mg PO DAILY 04/09/22 amoxicillin 500 mg-potassium clavulanate 125 mg tablet (Augmentin) 1 tab PO BID #20 tabs 12/04/22 Hospital Course Summary of Care Provided Hospital Course: Patient was admitted with acute cholecystitis but it had been going on for over 6 days before his admission. Patient was admitted and the following day he had a cholecystostomy tube placed. He was then advanced on his diet. This morning he is feeling well with pain in the right upper quadrant but no other pain he tolerated regular diet with no nausea or vomiting. He was discharged home with cholecystostomy tube placed and will follow-up with me to discuss elective cholecystectomy once inflammation has decreased. Physical Exam Const oriented x3 and no apparent distress Resp normal respiratory effort GI soft to palpation Inspection: Negative for abdominal distention Palpation: tender RUQ Weight / BMI Weight Weight: 222 lb 6.4 oz Body Mass Index (BMI) 34.8 ABG / Lab / Microbiology Data Result Diagrams: 12/03/22 06:10 12/03/22 06:10 Radiography Diagnostic Testing: Radiology Impression Abscess Drainage CT 12/03/22 13:30 IMPRESSION: 1. CT directed percutaneous cholecystostomy using CT image guidance and image documentation as described. 2. Conscious Sedation protocol utilized with independent monitoring Electronically Signed: Ludwin Barragan MD at 14:44 EST , D/C Instructions Discharge Diet: No restrictions Discharge Activity: Return to Normal Activity, May Drive and May Shower Weight Bearing Status: Weight bearing as tolerated Call your doctor if your incision/area has: Continuous Slow Oozing, Increased Pain/ Swelling and Increased Redness Call your doctor if you observe: Fever of 101 or Higher Drain: Suction Please Follow Up With: Luis Antonio Daly MD When: Please call to schedule 1 week follow up appointment. [phone] Meaningful Use Info Meaningful Use Diagnoses (Choose all that apply): None applicable Discharge Plan Admission Admit Date/Time: 12/02/22 17:22 Attending Provider: Luis Antonio Daly Primary Care Provider: Brad Moody Chi Instructions Patient Instructions: Lamberto Roger Drain Tube Dc, DIAZ RN Procedural Sedation Discharge Orders/Prescriptions Prescriptions: New amoxicillin-pot clavulanate [Augmentin] 500-125 mg tablet 1 tab PO BID Qty: 20 0RF Continued losartan 50 mg tablet 50 mg PO DAILY omeprazole 40 mg capsule,delayed release(DR/EC) 40 mg PO DAILY Label Comments: TAKE 1 CAPSULE BY MOUTH ONCE DAILY FOR 90 DAYS hydrochlorothiazide 12.5 mg tablet 12.5 tab PO DAILY Referrals / Follow Up: Brad Moody Chi, MD [Primary Care Provider] - Disposition Disposition (needs filled in before D/C Order can be placed): Home, Self Care 12/04/22 0941 Cosigner Signature (if applicable): CC: Dr. Luis Antonio Daly MD; Dr. Brad Moody MD [facility]igned[facility] Daly [facility] December 03, 2022 10:32am Note Date/Time December 03, 2022 10:3 2am [facility] Medical Records Department [address] [place] [id number] Progress Note - Surgery 12/03/22 1031 MR#: [id number] Acct: [id number] Name: DIANA THURSTON Rep #:[id number] : 1945 77 From: Luis Antonio jordan MD PCP: Dr. Brad Moody MD Status:ADM I N Location: [place] [address]-1 Subjective Subjective Patient is not complaining of any new pain or vomiting Objective Data Objective Data Vital Signs: Vital Signs Temp Pulse Resp BP Pulse Ox O2 Del Method 98 F 68 18 112/67 97 Room Air 12/03/22 09:02 12/03/22 09:02 12/03/22 09:02 12/03/22 09:02 12/03/22 09:02 12/03/22 09:13 Oxygen Delivery Method Room Air Weight: 222 lb 6.4 oz Body Mass Index (BMI) 34.8 Intake & Output: Intake and Output for Last 24 Hours 12/01/22 12/02/22 12/03/22 23:59 23:59 23:59 Intake Total 729.17 / 729.17 945.84 / 945.84 Balance 729.17 / 729.17 945.84 / 945.84 Lab / Micro Data Result Diagrams: 12/03/22 06:10 12/03/22 06:10 Labs: Laboratory Results - last 24 hr 12/03/22 06:10: WBC 7.5, RBC 4.44 L, Hgb 13.3, Hct 39.2 L, MCV 88.3, MCH 30.0, MCHC 33.9, RDW Std Deviation 45.4 H, RDW Coeff of Mayra 14.0, Plt Count 237, MPV 9.1, Immature Gran % (Auto) 1.100 H, Neut % (Auto) 60.9, Lymph % (Auto) 24.9, [place] % (Auto) 10.3 H, Eos % (Auto) 2.1, Baso % (Auto) 0.7, Absolute Neuts (auto)4.6, Absolute Lymphs (auto) 1.86, Nucleated RBC % 0 12/03/22 06:10: PT 14.1, INR 1.1, APTT 34.0 12/03/22 06:10: Sodium 136, Potassium 3.1 L, Chloride 103, Carbon Dioxide 25.0, Anion Gap 8, BUN 16, Creatinine 1.03, Estim Creat Clear Calc 57.94, Est GFR (MDRD) Af Amer 90, Est GFR (MDRD) Non-Af 75, BUN/Creatinine Ratio 15.5, Glucose 87, Calcium 8.5, Total Bilirubin 0.70, AST 28, ALT 48, Alkaline Phosphatase 92, Total Protein 6.1 L, Albumin 2.4 L, Globulin 3.7, Albumin/Globulin Ratio 0.6 L Radiography Diagnostic Testing: Radiology Impression Gallbladder Ultrasound 12/02/22 16:46 IMPRESSION: Thick-walled gallbladder containing stones with pericholecystic edema suspicious for chronic cholecystitis and superimposed acute cholecystitis. HIDA scan would be useful for further evaluation if clinically warranted Common bile duct is upper normal in size and there is no definitive evidence for intraductal stone Electronically Signed: Phani Salamnaca MD at 17:54 EST , Physical Exam Const oriented x3 and no apparent distress Resp normal respiratory effort GI Palpation: tender RUQ Assessment & Plan Assessment/Plan (1) Acute cholecystitis: PLAN: Patient has acute cholecystitis but I believe it is too risky to perform surgery at this time as the symptoms of been going on for an entire week. I recommend percutaneous cholecystostomy tube and antibiotics. I will start a diet after the cholecystostomy tube was placed. Patient will then be dischargedhome today or tomorrow with the tube in place and will follow-up in my office toschedule elective cholecystectomy in the future once the gallbladder and colon have calm down. Luis Antonio Daly MD Pager: [facility] [address] [place] [address], [address] [place] [address] Office: 12/03/22 1032 <Electronically signed by Luis Antonio Daly MD> Cosigner Signature (if applicable): CC: ~ Signed [facility] Work Phone: 1(844) 880-638103-08-[address] Dunbar [facility] December 02, 2022 10:02pm Note Date/Time December 02, 2022 4:51 pm [facility] Medical Records Department [address] [place] [id number] Emergency Department Summary 12/02/22 MR#: [id number] Acct: [id number] Name: DIANA THURSTON Rep #:[id number] : 1945 77 From: Sanaz Dunbar DO PCP: Dr. Brad Moody MD Status:ADM I N Location: [place] [address] HPI HPI - GI History of Present Illness Chief Complaint: Abd Pain Detail of Chief Complaint: Abdominal pain Informant: patient Narrative Narrative: Patient presents to the emergency department from outpatient CT for concern for a calculus cholecystitis. Patient tells me that 6 days ago after eating he feltfull very quickly and became quite nauseated but did not vomit. States subsequently did well for several days and then 3 days ago ate some chicken noodle soup again got very full very quickly. Today saw his primary care physician who examined him and upon pushing on his abdomen became concerned as to how tender he was. Patient had lab work-up which showed a normal white countand slightly elevated LFTs. Patient had a CT scan of the abdomen and pelvis that showed thick-walled gallbladder with pericholecystic edema without definitive evidence for intraluminal stones possibly representing a calculus cholecystitis. Ultrasound would be helpful for further evaluation. Patient denies any abdominal pain. He denies any fever. He denies chest pain. He is not on blood thinners. Prior similar symptoms: No PFSH PFSH Medical History BPH (benign prostatic hyperplasia) GERD (gastroesophageal reflux disease) Hepatomegaly High cholesterol History of bladder cancer Hypertension Obesity Tobacco use Home Medications hydrochlorothiazide 12.5 mg tablet 12.5 tab PO DAILY 04/09/22 [History Last Taken 12/02/22] losartan 50 mg tablet 50 mg PO DAILY 04/09/22 [History Last Taken 12/02/22] omeprazole 40 mg capsule,delayed release 40 mg PO DAILY 04/09/22 [History Last Taken 12/02/22] Allergy/AdvReac Type Severity Reaction Status Date / Time No Known Allergies Allergy Verified 12/02/22 16:39 Family History Brother Heart disease Hypertension CAD (coronary artery disease) Myocardial infarction Father Heart disease Hypertension CAD (coronary artery disease) Myocardial infarction Mother Alzheimer disease Surgical History H/O chest tube placement H/O hand surgery History of bladder surgery History of surgery of head History of tonsillectomy and adenoidectomy Social History (Updated 04/09/22 @ 06:44 by Nani Schilling) household members: none housing: house number of children: 1 current occupational status: retired Smoking Status: Current every day smoker tobacco type: cigars how long ago did patient quit smoking: Quit 8 years during, started 18 w/ 1 pk/2.5 day until 10 cigar/d x 3 yrs. alcohol intake: never substance use type: does not use ROS ROS ED Review of Systems ROS Unobtainable: other Constitutional Constitutional ED: Reports lethargy; Denies chills, fever(s), sweats or weight loss Eyes Eyes: Denies blurry vision, change in vision or diplopia ENT ENT ED: Denies rhinorrhea or sore throat Cardiovascular Cardiovascular: Denies chest pain, orthopnea or racing heartbeat Respiratory/Chest Respiratory/Chest: Denies cough, dyspnea, dyspnea on exertion, orthopnea or sputum Gastrointestinal Gastrointestinal: Reports nausea; Denies abdominal pain, diarrhea or vomiting Genitourinary Genitourinary ED: Denies dysuria, hematuria or urinary frequency Musculoskeletal Musculoskeletal: Denies arthralgias, back pain, myalgias or neck pain Integumentary Denies abscess, Abrasions or rash Neurologic Neurologic: Denies headache(s) or weakness Psychiatric Psychiatric: Denies anxiety, depression or suicidal thoughts Endocrine Endocrinology: Denies polydipsia, polyphagia or polyuria Hematologic/Lymphatic Hematologic/Lymphatic: Denies easy bleeding, easy bruising or lymphadenopathy Allergic/Immunologic Allergic/Immunologic ED: Denies mouth swelling, tongue swelling or urticaria EXAM Physical Exam Const Vital Signs: 12/02/22 16:21 Temperature 97 F L Temperature Source Temporal Pulse Rate 75 Respiratory Rate 18 Blood Pressure 139/79 H Blood Pressure Mean 99 Pulse Ox 98 Oxygen Delivery Method Room Air Positive well nourished and well developed General Appearance ED: well developed and NAD HEENT Reports TM's clear and moist mucous membranes normocephalic and atraumatic; Negative for trauma or tenderness Tympanic Membrane ED: Yes TM's clear Eyes PERRL and EOMs intact bilaterally General Eye ED: Negative for pale conjunctiva or scleral icterus Neck no lymphadenopathy, supple and no JVD General: Negative for tenderness Chest Wall inspection of chest normal and palpation of chest normal Chest: Negative for tenderness Resp normal respiratory effort and clear to auscultation bilaterally Effort and Inspection: Negative for respiratory distress or pain with movement Auscultation: Negative for rhonchi, wheezes or diminished lung sounds Cardio regular rate, regular rhythm, S1 normal heart sound, S2 normal heart sound and no murmurs Peripheral Pulses: pulses 2+ throughout GI normal to inspection, nondistended, normoactive bowel sounds, soft to palpation,non-distended and no masses GI Narrative: Tenderness palpation over the mid right abdomen and right lower quadrant. Patient with minimal tenderness underneath the right ribs and negative Casas sign. Patient does have guarding on exam. Patient does have some rebound. Back/Spine no CVA tenderness and no thoracic nor lumbar tenderness Extremity normal to inspection General Extremety ED: Negative for edema General Extremity: Negative for edema Neuro oriented x3, CN's II-XII intact bilaterally, no sensory deficits noted and gait normal Sensorium / Orientation: awake, alert, oriented to person, oriented to place andoriented to time Motor Exam: strength 5/5 throughout and strength abnormal Psych mental status grossly normal Skin no rashes or lesions noted and no wounds MDM MDM MDM Narrative Medical decision making narrative: Patient had an IV line established on arrival. I discussed case with general surgeon on-call who recommended that we obtain a gallbladder ultrasound and he will evaluate patient. Patient was seen by the surgeon in thedepartment and surgeon recommended Zosyn antibiotics and he will admit the patient. It was noted on prior ultrasound the patient did have history of gallstones. Patient will be admitted for acute cholecystitis. Discharge Plan Triage Chief Complaint: Abd Pain ED Provider: Sanaz Dunbar Dx/Rx/DC Orders Clinical Impression: Acute cholecystitis, Abdominal pain, acute, Hx of gastroesophageal reflux (GERD) Prescriptions: No Action losartan 50 mg tablet 50 mg PO DAILY omeprazole 40 mg capsule,delayed release(DR/EC) 40 mg PO DAILY Label Comments: TAKE 1 CAPSULE BY MOUTH ONCE DAILY FOR 90 DAYS hydrochlorothiazide 12.5 mg tablet 12.5 tab PO DAILY Primary Care Provider: Brad Moody Chi Referrals: Brad Moody Chi, MD [Primary Care Provider] - Disposition Disposition: Acute Care Hospital [facility] What to do if you have Problems For any increased pain, shortness of breath, bleeding, nausea or vomiting, chestpain, or any unexpected problems, contact your Primary Care Provider. Call [facility] ([phone]) or report to the closest Emergency Room. Call 911 if necessary. 12/02/222201 <Electronically signed by Sanaz Dunbar DO> Cosigner Signature (if applicable): CC: Dr. Brad Moody MD ~ Signed [facility] Work Phone: 1(740) 161-939203-07-2023 History and physical note Author Dr. Daly [facility] December 02, 2022 7:56pm Note Date/Time December 02, 2022 7:56 pm [facility] Medical Records Department [address] [place] [address] H&P Exam - Surgical 12/02/221951 MR#: [id number] Acct: [id number] Name: DIANA THURSTON Rep #:[id number] : 1945 77 From: Luis Antonio jordan MD PCP: Dr. Brad Moody MD Status:ADM I N Location: [facility] RH[facility]-1 [facility] - General General Date of Admission: 12/02/22 [facility] Narrative BOWER KARENA, is a 77 M who presents from his PCP. He says he got sick last Thursday and after a few days went to see his Doctor. He denies fever or chills. He does have RUQ pain. Denies nausea or vomiting. PFSH Medical History BPH (benign prostatic hyperplasia) GERD (gastroesophageal reflux disease) Hepatomegaly High cholesterol History of bladder cancer Hypertension Obesity Tobacco use Home Medications hydrochlorothiazide 12.5 mg tablet 12.5 tab PO DAILY 04/09/22 [History Last Taken 12/02/22] losartan 50 mg tablet 50 mg PO DAILY 04/09/22 [History Last Taken 12/02/22] omeprazole 40 mg capsule,delayed release 40 mg PO DAILY 04/09/22 [History Last Taken 12/02/22] Allergy/AdvReac Type Severity Reaction Status Date / Time No Known Allergies Allergy Verified 12/02/22 16:39 Family History Brother Heart disease Hypertension CAD (coronary artery disease) Myocardial infarction Father Heart disease Hypertension CAD (coronary artery disease) Myocardial infarction Mother Alzheimer disease Surgical History H/O chest tube placement H/O hand surgery History of bladder surgery History of surgery of head History of tonsillectomy and adenoidectomy Social History (Updated 04/09/22 @ 06:44 by Nani Schilling) household members: none housing: house number of children: 1 current occupational status: retired Smoking Status: Current some day smoker tobacco type: cigars how long ago did patient quit smoking: Quit 8 years during, started 18 w/ 1 pk/2.5 day until 10 cigar/d x 3 yrs. alcohol intake: never substance use type: does not use ROS Constitutional Constitutional: Reports anorexia and fatigue; Denies chills or fever(s) Eyes Eyes: Denies blurry vision ENT HEENT: Denies abnormal hearing Cardiovascular Cardiovascular: Denies chest pain Respiratory/Chest Respiratory/Chest: Denies cough or dyspnea Gastrointestinal Gastrointestinal: Reports abdominal pain; Denies constipation, diarrhea, dysphagia, nausea, rectal bleeding or vomiting Genitourinary Genitourinary: Denies change in urinary stream or dysuria Musculoskeletal Musculoskeletal: Denies abnormal gait or difficulty walking Neurologic Neurologic: Denies dizziness Psychiatric Psychiatric: Denies anxiety Endocrine Endocrinology: Denies flushing Hematologic/Lymphatic Hematologic/Lymphatic: Denies easy bleeding Vital Signs Vital Signs Vital Signs: 12/02/22 16:21 12/02/22 17:26 12/02/22 18:15 Temperature 97 F L 97.6 F L 96.8 F L Temperature Source Temporal Oral Temporal Pulse Rate 75 84 69 Respiratory Rate 18 16 18 Respiratory Effort Respiratory Depth Respiratory Pattern Blood Pressure 139/79 H 137/88 H 136/66 H Blood Pressure Mean 99 104 89 Blood Pressure Source Monitor Blood Pressure Position Semi-Fowlers Blood Pressure Location Right Arm Pulse Ox 98 97 96 Oxygen Delivery Method Room Air Room Air Room Air 12/02/22 18:00 Temperature Temperature Source Pulse Rate Respiratory Rate Respiratory Effort Normal Non-Labored Respiratory Depth Normal Respiratory Pattern Normal Blood Pressure Blood Pressure Mean Blood Pressure Source Blood Pressure Position Blood Pressure Location Pulse Ox Oxygen Delivery Method Room Air Weight Weight: 222 lb 6.4 oz Body Mass Index (BMI) 34.8 Physical Exam Const oriented x3 and no apparent distress Resp normal respiratory effort GI soft to palpation Palpation: tender RUQ external exam normal Extremity normal to inspection Results Radiology Impression Gallbladder Ultrasound 12/02/22 16:46 IMPRESSION: Thick-walled gallbladder containing stones with pericholecystic edema suspicious for chronic cholecystitis and superimposed acute cholecystitis. HIDA scan would be useful for further evaluation if clinically warranted Common bile duct is upper normal in size and there is no definitive evidence for intraductal stone Electronically Signed: Phani Salamanca MD at 17:54 EST , Assessment & Plan Assessment/Plan (1) Acute cholecystitis: PLAN: Patient has a normal white count but his CT scan shows cholecystitis with significant edema around his gallbladder. It also appears his colon is thickenedwhich may be reactive to the gallbladder. As this has been going on for several days I believe that he would benefit from antibiotics and cholecystostomy tube placement. Then in a few weeks when everything calms down I will offer the patient cholecystectomy. Will admit the patient on antibiotics and order Cholecystostomy tube. Luis Antonio Daly MD 12/02/221955 <Electronically signed by Luis Antonio Daly MD> Cosigner Signature (if applicable): CC: Dr. Luis Antonio Daly MD; Dr. Brad Moody MD~ Signed [facility] Work Phone: Discharge summary Author Dr. Daly [facility] December 04, 2022 9:41am Note Date/Time December 04, 2022 9:40 am [facility] Medical Records Department [address] [place] [id number] Discharge Summary 12/04/2237 MR#: [id number] Acct: [id number] Name: DIANA THURSTON Rep #:[id number] : 1945 77 From: Luis Antonio jordan MD PCP: Dr. Brad Moody MD Status:ADM I N Location: [place] [address] Providers Date of Admission: 12/02/22 Primary Care Physician: Dr. Brad Moody MD Reason For Visit: ACUTE CHOLECYSTITIS Diagnosis Discharge Diagnosis (1) Acute cholecystitis: Status: Acute Code(s): K81.0 - Acute cholecystitis Plan: Patient has acute cholecystitis but I believe it is too risky to perform surgeryat this time as the symptoms of been going on for an entire week. I recommend percutaneous cholecystostomy tube and antibiotics. I will start a diet after the cholecystostomy tube was placed. Patient will then be discharged home todayor tomorrow with the tube in place and will follow-up in my office to schedule elective cholecystectomy in the future once the gallbladder and colon have calm down. Luis Antonio Daly MD Pager: [facility] [address] [place] [address], [address] [place] [address] Office: Medications at Discharge Home Medications hydrochlorothiazide 12.5 mg tablet 12.5 tab PO DAILY 04/09/22 losartan 50 mg tablet 50 mg PO DAILY 04/09/22 omeprazole 40 mg capsule,delayed release 40 mg PO DAILY 04/09/22 amoxicillin 500 mg-potassium clavulanate 125 mg tablet (Augmentin) 1 tab PO BID #20 tabs 12/04/22 Hospital Course Summary of Care Provided Hospital Course: Patient was admitted with acute cholecystitis but it had been going on for over 6 days before his admission. Patient was admitted and the following day he had a cholecystostomy tube placed. He was then advanced on his diet. This morning he is feeling well with pain in the right upper quadrant but no other pain he tolerated regular diet with no nausea or vomiting. He was discharged home with cholecystostomy tube placed and will follow-up with me to discuss elective cholecystectomy once inflammation has decreased. Physical Exam Const oriented x3 and no apparent distress Resp normal respiratory effort GI soft to palpation Inspection: Negative for abdominal distention Palpation: tender RUQ Weight / BMI Weight Weight: 222 lb 6.4 oz Body Mass Index (BMI) 34.8 ABG / Lab / Microbiology Data Result Diagrams: 12/03/22 06:10 12/03/22 06:10 Radiography Diagnostic Testing: Radiology Impression Abscess Drainage CT 12/03/22 13:30 IMPRESSION: 1. CT directed percutaneous cholecystostomy using CT image guidance and image documentation as described. 2. Conscious Sedation protocol utilized with independent monitoring Electronically Signed: Ludwin Barragan MD at 14:44 EST Reading Location ID and State: [address] [place] [address] , Service support , D/C Instructions Discharge Diet: No restrictions Discharge Activity: Return to Normal Activity, May Drive and May Shower Weight Bearing Status: Weight bearing as tolerated Call your doctor if your incision/area has: Continuous Slow Oozing, Increased Pain/ Swelling and Increased Redness Call your doctor if you observe: Fever of 101 or Higher Drain: Suction Please Follow Up With: Luis Antonio Daly MD When: Please call to schedule 1 week follow up appointment. [phone] Meaningful Use Info Meaningful Use Diagnoses (Choose all that apply): None applicable Discharge Plan Admission Admit Date/Time: 12/02/22 17:22 Attending Provider: Luis Antonio Daly Primary Care Provider: Brad Moody Chi Instructions Patient Instructions: Lamberto Roger Drain Tube Dc, DIAZ RN Procedural Sedation Discharge Orders/Prescriptions Prescriptions: New amoxicillin-pot clavulanate [Augmentin] 500-125 mg tablet 1 tab PO BID Qty: 20 0RF Continued losartan 50 mg tablet 50 mg PO DAILY omeprazole 40 mg capsule,delayed release(DR/EC) 40 mg PO DAILY Label Comments: TAKE 1 CAPSULE BY MOUTH ONCE DAILY FOR 90 DAYS hydrochlorothiazide 12.5 mg tablet 12.5 tab PO DAILY Referrals / Follow Up: Brad Moody Chi, MD [Primary Care Provider] - Disposition Disposition (needs filled in before D/C Order can be placed): Home, Self Care 12/04/22940 <Electronically signed by Luis Antonio Daly MD> Cosigner Signature (if applicable): CC: Dr. Luis Antonio Daly MD; Dr. Brad Moody MD~ Signed [facility] Work Phone: Evaluation + Plan note Future Appointments Appointment Date:12/04/2023 11:30:00 AM Scheduled Provider: Location:[facility] Appointment Type:BD Bone Density DEXA Axial Skeleton Appointment Date:02/01/2024 02:00:00 PM Scheduled Provider:PRICE KEY DO Location:[facility] Appointment Type: OV Future Scheduled Tests Laboratory* Prostate Specific Antigen 11/06/23 * Thyroid Stimulating Hormone 11/06/23 * Free T4 11/06/23 * A1C Hemoglobin 11/06/23 * Complete Blood Count 11/06/23 * Lipid Profile 11/06/23 * Hepatitis C Antibody IgG 11/06/23 * Albumin/Creatinine Ratio, Random Urine 11/06/23 * Complete Metabolic Panel 11/06/23 Radiology* BD Bone Density DEXA Axial Skeleton 12/04/23 [facility] Evaluation + Plan note Future Appointments Appointment Date:02/19/2024 02:00:00 PM Scheduled Provider:PRICE KEY DO Location:[facility] Appointment Type: OV Follow Up Future Scheduled Tests Laboratory* Albumin/Creatinine Ratio, Random Urine 11/06/23 Radiology* BD Bone Density DEXA Axial Skeleton 12/04/23 [facility] Evaluation + Plan note Future Appointments Appointment Date:03/25/2024 12:30:00 PM Scheduled Provider:PRICE KEY DO Location:[facility] Appointment Type: OV Follow Up Future Scheduled Tests Radiology* BD Bone Density DEXA Axial Skeleton 12/04/23 [facility] evaluation + Plan note Future Appointments Appointment Date:10/18/2024 01:30:00 PM Scheduled Provider:PRICE KEY DO Location:[facility] Appointment Type:PC OV Future Scheduled Tests Laboratory* Complete Blood Count 08/04/24 Radiology* BD Bone Density DEXA Axial Skeleton 12/04/23 * CT Coronary Calcium Score w/o Contrast 08/03/24 [facility] evaluation + Plan note Future Appointments Appointment Date:03/01/2025 02:00:00 PM Scheduled Provider:PRICE KEY DO Location:[facility] Appointment Type:PC OV Future Scheduled Tests Laboratory* Complete Blood Count 08/04/24 Radiology* CT Coronary Calcium Score w/o Contrast 08/03/24 [facility] evaluation + Plan note Future Appointments Appointment Date:08/18/2025 02:00:00 PM Scheduled Provider:PRICE KEY DO Location:[facility] Appointment Type:PC OV Future Scheduled Tests Radiology* CT Coronary Calcium Score w/o Contrast 08/03/24 [facility] evaluation noteNo assessment information available [facility] Work Phone: evaluation note* Diagnosis Onset Date Resolution Status Chest pain acute [facility] Work Phone: evaluation note* Diagnosis Onset Date Resolution Status Chest pain resolved [facility] Work Phone: evaluation note* Diagnosis Onset Date Resolution Status Abdominal pain, acute acute Acute cholecystitis acute Hx of gastroesophageal reflux (GERD) acute [facility] Work Phone: evaluation note* Diagnosis Onset Date Resolution Status Acute cholecystitis acute Abdominal pain, acute resolv ed Acute cholecystitis acute Acute cholecystitis acute Respiratory failure acute [facility] Work Phone: evaluation note* Diagnosis Onset Date Resolution Status Acute cholecystitis acute Abdominal pain, acute resolv ed Acute cholecystitis acute Acute cholecystitis acute Respiratory failure acute Fluid collection at surgical site acute Fluid collection at surgical site [facility] Work Phone: Evaluation note* Diagnosis Elevated bilirubin- Primary Jaundice, unspecified, not of Elevated LFTs Other abnormal blood [facility] Diagnosis Pericardial effusion (noninflammatory)- Primary Epigastric pain Abdominal pain, epigastric [facility] Diagnosis Lung nodule- Primary Solitary pulmonary nodule Lung nodules Other nonspecific abnormal finding of lung field Hemoptysis Hemoptysis, unspecified [facility] Mass of left parotid gland Otorrhea, left Tympanic membrane perforation, left Screening for nephropathy [facility] Diagnosis Mass of left parotid gland [facility] Diagnosis 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, face, 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) [facility] Diagnosis 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, face, and neck Mass of left parotid gland [facility] Diagnosis 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, face, 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) [facility] Diagnosis 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, face, 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) [facility] Diagnosis Pre-operative examination Preoperative examination, unspecified 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 [facility] Diagnosis 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, face, 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 Personal history of tobacco use Personal history of tobacco use, presenting hazards to health Tympanic membrane perforation, left Hearing loss, unspecified hearing loss type, unspecified laterality 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 documented in this encounter [facility] note* Diagnosis Pre-operative examination- Primary Preoperative examination, unspecified 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 Personal history of tobacco use Personal history of tobacco use, presenting hazards to health Chronic cough Cough Gastroesophageal reflux disease, unspecified whether esophagitis present Essential hypertension Unspecified essential hypertension Type 2 diabetes mellitus with hyperlipidemia (HCC) Elevated LFTs Other abnormal blood chemistry Common bile duct dilation Other specified disorders of biliary tract Duodenal diverticulum Diverticulosis of small intestine (without mention of hemorrhage) Myelolipoma of left adrenal gland History of skin cancer Personal history of other malignant neoplasm of skin Benign prostatic hyperplasia with nocturia Obesity, Class I, BMI 30-34.9 Obesity, unspecified Primary cancer of parotid gland (HCC) Pericardial effusion (HCC) Unspecified disease of pericardium Sensorineural hearing loss (SNHL) of both ears- Primary Tympanic membrane perforation, 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) Secondary and unspecified malignant neoplasm of lymph nodes of head, face, 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 documented in this encounter [facility] note* Diagnosis Pre-operative examination- Primary Preoperative examination, unspecified 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 Personal history of tobacco use Personal history of tobacco use, presenting hazards to health Chronic cough Cough Gastroesophageal reflux disease, unspecified whether esophagitis present Essential hypertension Unspecified essential hypertension Type 2 diabetes mellitus with hyperlipidemia (HCC) Elevated LFTs Other abnormal blood chemistry Common bile duct dilation Other specified disorders of biliary tract Duodenal diverticulum Diverticulosis of small intestine (without mention of hemorrhage) Myelolipoma of left adrenal gland History of skin cancer Personal history of other malignant neoplasm of skin Benign prostatic hyperplasia with nocturia Obesity, Class I, BMI 30-34.9 Obesity, unspecified Primary cancer of parotid gland (HCC) Pericardial effusion (HCC) Unspecified disease of pericardium Pre-operative examination Preoperative examination, unspecified 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 04/2024 echo PERICARDIUM There is a small pericardial effusion adjacent to the right ventricle measuring 0.4 cm, a small pericardial effusion adjacent to the left ventricle measuring 0.8 cm and a small pericardial effusion adjacent to the right atrium measuring 0.7 cm. There is an epicardial fat pad. * Assessment & Plan Note - Mary Carmen Stephens APRN.CNP - 04/28/2025 9:12 AM EDT Associated Problem(s): Primary cancer of parotid gland (HCC) Assessment: history of left parotid mass for a few years -apparently per outside notes from Dr. Desouza he saw an ENT and had a biopsy of this left parotid mass and was told it needed to be removed. He did not pursue that. 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 * Assessment & Plan Note - Mary Carmen Stephens APRN.CNP - 04/28/2025 9:09 AM EDT Associated Problem(s): Obesity, Class I, BMI 30-34.9 Assessment: Body mass index is 34.21 kg/m . * Assessment & Plan Note - Mary Carmen Stephens APRN.CNP - 04/28/2025 9:09 AM EDT Associated Problem(s): Benign prostatic hyperplasia with nocturia Assessment: no current tx, >1 nocturia * Assessment & Plan Note - Mary Carmen Stephens APRN.CNP - 04/28/2025 9:09 AM EDT Associated Problem(s): History of skin cancer Assessment: s/p excision cheek, pt again had lesion noted on cheek, recommended f/u with dermatology to re-evaulate * Assessment & Plan Note - Mary Carmen Stephens APRN.CNP - 04/28/2025 9:08 AM EDT Associated Problem(s): Myelolipoma of left adrenal gland Assessment: PET scan showed no uptake, incidental finding on CT * Assessment & Plan Note - Mary Carmen Stephens APRN.CNP - 04/28/2025 9:08 AM EDT Associated Problem(s): Duodenal diverticulum Assessment: incidental finding CT 2023 * Assessment & Plan Note - Mary Carmen Stephens APRN.CNP - 04/28/2025 9:07 AM EDT Associated Problem(s): Common bile duct dilation Assessment: s/p stent * Assessment & Plan Note - Mary Carmen Stephens APRN.CNP - 04/28/2025 9:07 AM EDT Associated Problem(s): Elevated LFTs Assessment: hx Albumin (g/dL) Date Value 06/02/2024 3.6 (L) Bilirubin, Total (mg/dL) Date Value 06/02/2024 1.0 Alkaline Phosphatase (U/L) Date Value 06/02/2024 108 AST (U/L) Date Value 06/02/2024 36 ALT (U/L) Date Value 06/02/2024 59 (H) Protein, Total (g/dL) Date Value 06/02/2024 6.5 * Assessment & Plan Note - Mary Carmen Stephens APRN.CNP - 04/28/2025 9:06 AM EDT Associated Problem(s): Type 2 diabetes mellitus with hyperlipidemia (HCC) Assessment: diet controlled DM, c/w statin, last A1c below found in clinic sync Hgb A1c [4.3-6.4 %] 5.7 % (04/18/25 3:11 PM) * Assessment & Plan Note - Mary Carmen Stephens APRN.CNP - 04/28/2025 9:04 AM EDT Associated Problem(s): Essential hypertension Assessment: controlled on rx Last 14 BP Last 14 Encounter BP Readings: Date: BP: 04/25/2025 148/72 04/11/2025 152/70 02/27/2025 151/92 02/27/2025 151/92 02/07/2025 113/74 01/18/2025 132/80 06/02/2024 133/83 05/20/2024 135/74 05/12/2024 108/66 05/10/2024 135/84 05/09/2024 150/76 04/29/2024 131/54 04/27/2024 133/67 04/27/2024 142/87 * Assessment & Plan Note - Mary Carmen Stephens APRN.CNP - 04/28/2025 9:04 AM EDT Associated Problem(s): GERD (gastroesophageal reflux disease) Assessment: otc rx as needed * Assessment & Plan Note - Mary Carmen Stephens APRN.CNP - 04/28/2025 9:04 AM EDT Associated Problem(s): Chronic cough Assessment: CXR today, hx of bronchitis last month, pt states symptoms have resolved IMPRESSION: Elevation of the right lateral hemidiaphragm with chronic right basilar and lateral pleural thickening * Assessment & Plan Note - Mary Carmen Stephens APRN.CNP - 04/28/2025 9:02 AM EDT Associated Problem(s): Personal history of tobacco use Assessment: 0.25ppd/30+ years, states now just cigars occasionally, [facility] 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 Acute post-operative pain Pericardial effusion (HCC) Unspecified disease of pericardium History of skin cancer Personal history of other malignant neoplasm of skin Obesity, Class I, BMI 30-34.9 Obesity, unspecified Benign prostatic hyperplasia with nocturia Duodenal diverticulum Diverticulosis of small intestine (without mention of hemorrhage) Common bile duct dilation Other specified disorders of biliary tract Type 2 diabetes mellitus with hyperlipidemia (HCC) Essential hypertension Unspecified essential hypertension GERD (gastroesophageal reflux disease) Esophageal reflux Chronic cough Cough Personal history of tobacco use Personal history of tobacco use, presenting hazards to health Nicotine use disorder, F17.2 Tobacco use disorder Obesity, Class II, BMI 35-39.9 Obesity, unspecified Pre-operative examination- Primary Preoperative examination, unspecified 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 Personal history of tobacco use Personal history of tobacco use, presenting hazards to health Chronic cough Cough Gastroesophageal reflux disease, unspecified whether esophagitis present Essential hypertension Unspecified essential hypertension Type 2 diabetes mellitus with hyperlipidemia (HCC) Elevated LFTs Other abnormal blood chemistry Common bile duct dilation Other specified disorders of biliary tract Duodenal diverticulum Diverticulosis of small intestine (without mention of hemorrhage) Myelolipoma of left adrenal gland History of skin cancer Personal history of other malignant neoplasm of skin Benign prostatic hyperplasia with nocturia Obesity, Class I, BMI 30-34.9 Obesity, unspecified Primary cancer of parotid gland (HCC) Pericardial effusion (HCC) Unspecified disease of pericardium 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 [facility]* Diagnosis 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 Acute post-operative pain Pericardial effusion (HCC) Unspecified disease of pericardium History of skin cancer Personal history of other malignant neoplasm of skin Obesity, Class I, BMI 30-34.9 Obesity, unspecified Benign prostatic hyperplasia with nocturia Duodenal diverticulum Diverticulosis of small intestine (without mention of hemorrhage) Common bile duct dilation Other specified disorders of biliary tract Type 2 diabetes mellitus with hyperlipidemia (HCC) Essential hypertension Unspecified essential hypertension GERD (gastroesophageal reflux disease) Esophageal reflux Chronic cough Cough Personal history of tobacco use Personal history of tobacco use, presenting hazards to health Nicotine use disorder, F17.2 Tobacco use disorder Obesity, Class II, BMI 35-39.9 Obesity, unspecified Pre-operative examination- Primary Preoperative examination, unspecified 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 Personal history of tobacco use Personal history of tobacco use, presenting hazards to health Chronic cough Cough Gastroesophageal reflux disease, unspecified whether esophagitis present Essential hypertension Unspecified essential hypertension Type 2 diabetes mellitus with hyperlipidemia (HCC) Elevated LFTs Other abnormal blood chemistry Common bile duct dilation Other specified disorders of biliary tract Duodenal diverticulum Diverticulosis of small intestine (without mention of hemorrhage) Myelolipoma of left adrenal gland History of skin cancer Personal history of other malignant neoplasm of skin Benign prostatic hyperplasia with nocturia Obesity, Class I, BMI 30-34.9 Obesity, unspecified Primary cancer of parotid gland (HCC) Pericardial effusion (HCC) Unspecified disease of pericardium Lung nodules Other nonspecific abnormal finding of lung field [facility] Diagnosis 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, face, 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) History of skin cancer Personal history of other malignant neoplasm of skin Personal history of tobacco use Personal history of tobacco use, presenting hazards to health 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 Acute post-operative pain Pericardial effusion (HCC) Unspecified disease of pericardium History of skin cancer Personal history of other malignant neoplasm of skin Obesity, Class I, BMI 30-34.9 Obesity, unspecified Benign prostatic hyperplasia with nocturia Duodenal diverticulum Diverticulosis of small intestine (without mention of hemorrhage) Common bile duct dilation Other specified disorders of biliary tract Type 2 diabetes mellitus with hyperlipidemia (HCC) Essential hypertension Unspecified essential hypertension GERD (gastroesophageal reflux disease) Esophageal reflux Chronic cough Cough Personal history of tobacco use Personal history of tobacco use, presenting hazards to health Nicotine use disorder, F17.2 Tobacco use disorder Obesity, Class II, BMI 35-39.9 Obesity, unspecified Pre-operative examination- Primary Preoperative examination, unspecified 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 Personal history of tobacco use Personal history of tobacco use, presenting hazards to health Chronic cough Cough Gastroesophageal reflux disease, unspecified whether esophagitis present Essential hypertension Unspecified essential hypertension Type 2 diabetes mellitus with hyperlipidemia (HCC) Elevated LFTs Other abnormal blood chemistry Common bile duct dilation Other specified disorders of biliary tract Duodenal diverticulum Diverticulosis of small intestine (without mention of hemorrhage) Myelolipoma of left adrenal gland History of skin cancer Personal history of other malignant neoplasm of skin Benign prostatic hyperplasia with nocturia Obesity, Class I, BMI 30-34.9 Obesity, unspecified Primary cancer of parotid gland (HCC) Pericardial effusion (HCC) Unspecified disease of pericardium documented in [facility] encounter [facility] Diagnosis 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 Acute post-operative pain Pericardial effusion (HCC) Unspecified disease of pericardium History of skin cancer Personal history of other malignant neoplasm of skin Obesity, Class I, BMI 30-34.9 Obesity, unspecified Benign prostatic hyperplasia with nocturia Duodenal diverticulum Diverticulosis of small intestine (without mention of hemorrhage) Common bile duct dilation Other specified disorders of biliary tract Type 2 diabetes mellitus with hyperlipidemia (HCC) Essential hypertension Unspecified essential hypertension GERD (gastroesophageal reflux disease) Esophageal reflux Chronic cough Cough Personal history of tobacco use Personal history of tobacco use, presenting hazards to health Nicotine use disorder, F17.2 Tobacco use disorder Obesity, Class II, BMI 35-39.9 Obesity, unspecified Pre-operative examination- Primary Preoperative examination, unspecified 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 Personal history of tobacco use Personal history of tobacco use, presenting hazards to health Chronic cough Cough Gastroesophageal reflux disease, unspecified whether esophagitis present Essential hypertension Unspecified essential hypertension Type 2 diabetes mellitus with hyperlipidemia (HCC) Elevated LFTs Other abnormal blood chemistry Common bile duct dilation Other specified disorders of biliary tract Duodenal diverticulum Diverticulosis of small intestine (without mention of hemorrhage) Myelolipoma of left adrenal gland History of skin cancer Personal history of other malignant neoplasm of skin Benign prostatic hyperplasia with nocturia Obesity, Class I, BMI 30-34.9 Obesity, unspecified Primary cancer of parotid gland (HCC) Pericardial effusion (HCC) Unspecified disease of pericardium 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 documented in this encounter [facility] note* Diagnosis 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 Acute post-operative pain Pericardial effusion (HCC) Unspecified disease of pericardium History of skin cancer Personal history of other malignant neoplasm of skin Obesity, Class I, BMI 30-34.9 Obesity, unspecified Benign prostatic hyperplasia with nocturia Duodenal diverticulum Diverticulosis of small intestine (without mention of hemorrhage) Common bile duct dilation Other specified disorders of biliary tract Type 2 diabetes mellitus with hyperlipidemia (HCC) Essential hypertension Unspecified essential hypertension GERD (gastroesophageal reflux disease) Esophageal reflux Chronic cough Cough Personal history of tobacco use Personal history of tobacco use, presenting hazards to health Nicotine use disorder, F17.2 Tobacco use disorder Obesity, Class II, BMI 35-39.9 Obesity, unspecified Pre-operative examination- Primary Preoperative examination, unspecified 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 Personal history of tobacco use Personal history of tobacco use, presenting hazards to health Chronic cough Cough Gastroesophageal reflux disease, unspecified whether esophagitis present Essential hypertension Unspecified essential hypertension Type 2 diabetes mellitus with hyperlipidemia (HCC) Elevated LFTs Other abnormal blood chemistry Common bile duct dilation Other specified disorders of biliary tract Duodenal diverticulum Diverticulosis of small intestine (without mention of hemorrhage) Myelolipoma of left adrenal gland History of skin cancer Personal history of other malignant neoplasm of skin Benign prostatic hyperplasia with nocturia Obesity, Class I, BMI 30-34.9 Obesity, unspecified Primary cancer of parotid gland (HCC) Pericardial effusion (HCC) Unspecified disease of pericardium Encounter for postoperative care- Primary Other specified aftercare following surgery Primary cancer of parotid gland (HCC) documented in this encounter [facility] note* Diagnosis 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 Acute post-operative pain Pericardial effusion (HCC) Unspecified disease of pericardium History of skin cancer Personal history of other malignant neoplasm of skin Obesity, Class I, BMI 30-34.9 Obesity, unspecified Benign prostatic hyperplasia with nocturia Duodenal diverticulum Diverticulosis of small intestine (without mention of hemorrhage) Common bile duct dilation Other specified disorders of biliary tract Type 2 diabetes mellitus with hyperlipidemia (HCC) Essential hypertension Unspecified essential hypertension GERD (gastroesophageal reflux disease) Esophageal reflux Chronic cough Cough Personal history of tobacco use Personal history of tobacco use, presenting hazards to health Nicotine use disorder, F17.2 Tobacco use disorder Obesity, Class II, BMI 35-39.9 Obesity, unspecified Pre-operative examination- Primary Preoperative examination, unspecified 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 Personal history of tobacco use Personal history of tobacco use, presenting hazards to health Chronic cough Cough Gastroesophageal reflux disease, unspecified whether esophagitis present Essential hypertension Unspecified essential hypertension Type 2 diabetes mellitus with hyperlipidemia (HCC) Elevated LFTs Other abnormal blood chemistry Common bile duct dilation Other specified disorders of biliary tract Duodenal diverticulum Diverticulosis of small intestine (without mention of hemorrhage) Myelolipoma of left adrenal gland History of skin cancer Personal history of other malignant neoplasm of skin Benign prostatic hyperplasia with nocturia Obesity, Class I, BMI 30-34.9 Obesity, unspecified Primary cancer of parotid gland (HCC) Pericardial effusion (HCC) Unspecified disease of pericardium 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, face, 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) documented in this encounter [facility] note* Diagnosis 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 Acute post-operative pain Pericardial effusion (HCC) Unspecified disease of pericardium History of skin cancer Personal history of other malignant neoplasm of skin Obesity, Class I, BMI 30-34.9 Obesity, unspecified Benign prostatic hyperplasia with nocturia Duodenal diverticulum Diverticulosis of small intestine (without mention of hemorrhage) Common bile duct dilation Other specified disorders of biliary tract Type 2 diabetes mellitus with hyperlipidemia (HCC) Essential hypertension Unspecified essential hypertension GERD (gastroesophageal reflux disease) Esophageal reflux Chronic cough Cough Personal history of tobacco use Personal history of tobacco use, presenting hazards to health Nicotine use disorder, F17.2 Tobacco use disorder Obesity, Class II, BMI 35-39.9 Obesity, unspecified Pre-operative examination- Primary Preoperative examination, unspecified 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 Personal history of tobacco use Personal history of tobacco use, presenting hazards to health Chronic cough Cough Gastroesophageal reflux disease, unspecified whether esophagitis present Essential hypertension Unspecified essential hypertension Type 2 diabetes mellitus with hyperlipidemia (HCC) Elevated LFTs Other abnormal blood chemistry Common bile duct dilation Other specified disorders of biliary tract Duodenal diverticulum Diverticulosis of small intestine (without mention of hemorrhage) Myelolipoma of left adrenal gland History of skin cancer Personal history of other malignant neoplasm of skin Benign prostatic hyperplasia with nocturia Obesity, Class I, BMI 30-34.9 Obesity, unspecified Primary cancer of parotid gland (HCC) Pericardial effusion (HCC) Unspecified disease of pericardium 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, face, 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) documented in this encounter [facility] course Narrative No data available for this section [facility] Hospital Discharge instructions No data available for this section [facility] Progress note No data available for this section [facility] Reason for referral (narrative)* Outpatient Procedure (Routine) - Authorized Specialty Diagnoses / Procedures Referred By Contac t Referred To [facility] Diagnoses Pericardial effusion (noninflammatory) Procedures ECHO ECHO TTHRC R-T 2D W/WOM-MODE COMPL SPEC&COLR D Araceli Isidro MD [address] [place] [address] [facility] [address] [place] [id number] Referral ID Status Reason Start Date Expiration Date Visits Requested Visits Authorized [id number] Authorized Auto-Generat ed Referral 05/12/2024 07/28/2024 [address] [facility] for referral (narrative)* Consult, Test, Treat (Routine) - New Request Specialty Diagnoses / Procedures Referred By Adolph alan Referred To Contact Procedures HEARING TEST/AUDIOGRAM COMPRE AUDIOMETRY THRESHOLD EVAL SP RECOGNIJ [facility] [address] [address] Phone: tel: fax: [facility] [place] [address] [place] [address] Referral ID Status Reason Start Date Expiration Date Visits Requested Visits Authorized [id number] New Request Auto-Generat ed Referral 04/27/2025 04/28/2026 [address] [facility] for visit Narrative* MRI/CT (Routine) - Closed Specialty Diagnoses / Procedures Referred By Adolph alan Referred To Contact CT IMAG[facility] Diagnoses Mass of left parotid gland Procedures CT NECK SOFT TISSUE W IVCON CT SOFT TISSUE NECK W/CONTRAST MATERIAL Cortney Desouza MD [address] [place] [address] Phone: tel: fax: [id number] Referral ID Status Reason Start Date Expiration Date V isits Requested Visits Authorized [id number] Closed Auto-Generate d Referral 01/18/2025 02/17/2026 [address] [facility] for visit Narrative* MRI/CT (Routine) - Closed Specialty Diagnoses / Procedures Referred By Adolph alan Referred To Contact CT IMAGING Diagnoses Lung nodules Procedures CT CHEST WO IVCON DIAGNOSTIC COMPUTED TOMOGRAPHY THORAX W/O [facility] Rufino Givens DO [address] [facility] [place] [address] Phone: tel: fax: [place] [address] Referral ID Status Reason Start Date Expiration Date V isits Requested Visits Authorized [id number] Closed Auto-Generate d Referral 05/20/2025 06/19/2025 1 1 [facility] note* MALIK Lee: PERFORM Event Display: Patient Summary Documents Authored Date: [id number] [facility]* MALIK Lee: PERFORM Event Display: Patient Summary Documents Authored Date: [id number] [facility] Summary Purpose Family History No Family History Records Found Relationship Condition Age at Onset Recorded Date/T mai brother Cardiac disease Unknown Hypertension Unknown Coronary artery disease Unknown Myocardial infarction Unknown father Cardiac disease Unknown mother Alzheimer's disease Unknown Advance Directives No Advanced Directives Records Found Advance Directive Response Recorded Date/ Time Living Will No December 14, 2021 7:39pm Power of Linking Machine Operator Yes December 14 7:39pm Advance Directive Response Recorded Date/ Time Name of Medical Power of Linking Machine Operator daughter December 14, 2021 7:39pm Living Will No April 09, 2022 6:34am Power of Linking Machine Operator No April 09 6:34am Advance Directive Response Recorded Date/ Time Living Will No April 09, 2022 6:34am Power of Linking Machine Operator No April 09 6:34am Advance Directive Response Recorded Date/ Time Name of Medical Power of Linking Machine Operator Yoselyn -yojana tatiana December 02, 2022 5:44pm Living Will No December 02, 2022 5:44pm Power of Linking Machine Operator Yes December 02 5:44pm Advance Directive Response Recorded Date/ Time Name of Medical Power of Linking Machine Operator Yoselyn -yojana briater December 02, 2022 6:44pm Name of Medical Power of Linking Machine Operator DAUGHTER December 25, 2022 4:56pm Living Will Yes December 25, 2022 4:56pm Power of Linking Machine Operator Yes December 25 4:56pm Date Activated Date Inactivated Comments 04/27/2024 8:09 PM 04/30/2024 6:41 PM Question Answer Comments Full Code Order Discussed With: Patient Date Activated Date Inactivated Comments 04/27/2024 8:09 PM 04/30/2024 6:41 PM Question Answer Comments Full Code Order Discussed With: Patient Chief Complaint and Reason for Visit Chief Complaint R20.0, NUMBNESS WEAKNESS Chief Complaint WEAKNESS HEPATOMEGALY Chief Complaint WEAKNESS HEPATOMEGALY CHEST PAIN CHEST PAIN Reason for Visit Chest pain Chief Complaint CHEST PAIN CHEST PAIN Reason for Visit Chest pain Chief Complaint ABD PAIN CHOLECYSTITIS, ABDOMINAL PAIN Reason for Visit Abdominal pain, acut e Acute cholecystitis Hx of gastroesophageal reflux (GERD) Chief Complaint ABD PAIN ACUTE CHOLECYSTITIS CHOLECYSTITIS, ABDOMINAL PAIN ACUTE CHOLECYSTITIS ACUTE CHOLECYSTITIS Reason for Visit Abdominal pain, acut e Acute cholecystitis Hx of gastroesophageal reflux (GERD) Chief Complaint ABD PAIN ACUTE CHOLECYSTITIS CHOLECYSTITIS, ABDOMINAL PAIN ACUTE CHOLECYSTITIS ACUTE CHOLECYSTITIS CHOLECYSTITIS 3 LAP RAFA W IOC PREOP LAP RAFA W IOC LAP RAFA W IOC Reason for Visit Acute cholecystitis Abdominal pain, acute Acute cholecystitis Acute cholecystitis Respiratory failure Chief Complaint ABD PAIN ACUTE CHOLECYSTITIS CHOLECYSTITIS, ABDOMINAL PAIN ACUTE CHOLECYSTITIS ACUTE CHOLECYSTITIS CHOLECYSTITIS 12/04 LAP RAFA W IOC PREOP LAP RAFA W IOC LAP RAFA W IOC RUQ PAIN STAT COMPLICATIONS OF SURGICAL AND MEDICAL CARE ABCESS DRAINAGE BILE LEAK drain removal Reason for Visit Acute cholecystitis Abdominal pain, acute Acute cholecystitis Acute cholecystitis Respiratory failure Fluid collection at surgical site Fluid collection at surgical site Reason for Referral Specialty Diagnoses / Procedures Referred By Conttroy t Referred To Contact CT IMAGING Diagnoses Lung nodules Procedures CT CHEST WO IVCON DIAGNOSTIC COMPUTED TOMOGRAPHY [facility]AX [facility] BautistaRufino sullivan, [address] / [place] [address] [place] [address] Referral ID Status Reason Start Date Expiration Date Visits Requested Visits Authorized [id number] Pending Review Auto-Generat ed Referral 05/20/2025 06/19/2025 1 1 Additional Source Comments (unrecognized sect ion and content) No Status Records FoundNo Status Records FoundNo Status Records FoundNo Status Records FoundNo Status Records FoundNo Status Records FoundNo Status Records FoundNo Status Records FoundNo Status Records Found INFORMATION SOURCE (unrecogn ized section and content) DATE CREATED AUTHOR 11/23/2019 [facility] DATE CREATED AUTHOR AUTHOR'S ORGANIZ ATION [facility] DATE CREATED AUTHOR AUTHOR'S ORGANIZ ATION 03/28/2024 [facility] ([place] DATE CREATED AUTHOR AUTHOR'S ORGANIZ ATION 05/06/2024 [facility] DATE CREATED AUTHOR AUTHOR'S ORGANIZ ATION 08/13/2024 [facility] DATE CREATED AUTHOR AUTHOR'S ORGANIZ ATION 02/16/2025 [facility] DATE CREATED AUTHOR AUTHOR'S ORGANIZ ATION 04/23/2025 [facility] DATE CREATED AUTHOR AUTHOR'S ORGANIZ ATION 08/10/2025 [facility] DATE CREATED AUTHOR AUTHOR'S ORGANIZ ATION 08/10/2025 [facility] Goals (unrecognized section and content) Goals may be documented in a n alternate sectionGoals may be documented in an alternate sectionGoals may be documented in an alternate sectionGoals may be documented in an alternate sectionGoals may be documented in an alternate sectionGoals may be documented in an alternate sectionGoals may be documented in an alternate section No data available for this section No data available for this section No data available for this section No data available for this section No data available for this section No data available for this section No data available for this section No data available for this section No data available for this section No data available for this section Care Teams (unrecognized sec tion and content) Team Status: Active Member Role Status Dates Dr. Brad Moody MD Family Provider Active Dr. Brad Moody MD Primary Care Provider Active Team Status: Active Member Role Status Dates Dr. Brad Moody MD Primary Care Provider, Attending Provider Active Team Status: Active Member Role Status Dates Dr. Brad Moody MD Primary Care Provider Active Dr. Sanaz Dunbar DO Emergency Provider Active Dr. Luis Antonio Daly MD Admit Provider, Attending Provider Active Team Status: Active Member Role Status Dates Dr. Brad Moody MD Primary Care Provider Active Dr. Sanaz Dunbar DO Emergency Provider Active Dr. Luis Antonio Daly MD Admit Provid er, Attending Provider, Other Provider Active Team Status: Inactive Member Role Status Dates Dr. Brad Moody MD Primary Care Provider Active Dr. Sanaz Dunbar DO Emergency Provider Active Dr. Luis Antonio Daly MD Admit Provider, Attending Provider Active Team Status: Inactive Member Role Status Dates Dr. Brad Moody MD Primary Care Provider, Attending Provider Active Team Status: Inactive Member Role Status Dates Dr. Brad Moody MD Primary Care Provider, Referring Provider Active Dr. Luis Antonio Daly MD Attending Provider Active Team Status: Active Member Role Status Dates Dr. Brad Moody MD Primary Care Provider Active Dr. Luis Antonio Daly MD Attending Pr ovider, Referring Provider, Other Provider Active Team Status: Active Member Role Status Dates Dr. Brad Moody MD Primary Care Provider Active Dr. Luis Antonio Daly MD Admit Provid er, Attending Provider, Referring Provider, Other Provider Active Team Status: Active Member Role Status Dates Dr. Brad Moody MD Primary Care Provider Active Dr. Roscoe Borjas MD Attending Provider Active Dr. Luis Antonio Daly MD Referring Provider Active Team Status: Inactive Member Role Status Dates Dr. Brad Moody MD Primary Care Provider Active Dr. Luis Antonio Daly MD Admit Provid er, Attending Provider, Referring Provider Active Team Status: Active Member Role Status Dates Dr. Brad Moody MD Primary Care Provider Active Dr. Luis Antonio Daly MD Attending Provider, Referr ing Provider Active Mill Tender Relationship Specialty Start Date End Date Brad Moody Chi [address] [address] PCP - General Gerontology 09/03/19 Mill Tender Relationship Specialty Start Date End Date Price Key DO [address] [place] [address] PCP - General Family Medicine 01/24/25 Mill Tender Relationship Specialty Start Date End Date Price Key DO [address] [place] [address] PCP - General Family Medicine 01/24/25 Mill Tender Relationship Specialty Start Date End Date Price Key DO [address] [place] [address] PCP - General Family Medicine 01/24/25 Mill Tender Relationship Specialty Start Date End Date Price Key DO [address] [place] [address] PCP - General Family Medicine 01/24/25 Cortney Desouza MD [address] [place] [phone] Ent - Otolaryngology 02/15/25 Ilan Simon MD [address] [facility] [place], [place] [address] Radiation Oncology 02/24/25 Mill Tender Relationship Specialty Start Date End Date Price Key DO [address] [place] [address] PCP - General Family Medicine 01/24/25 Cortney Desouza MD [address] [place] [phone] Ent - Otolaryngology 02/15/25 Ilan Simon MD [address] [facility] [place] [address] Radiation Oncology 02/24/25 Mill Tender Relationship Specialty Start Date End Date Price Key DO [address] [place] [id number] PCP - General Family Medicine 01/24/25 Cortney Desouza MD [address] [place] [phone] Ent - Otolaryngology 02/15/25 Ilan Simon MD [address] [place] [address] Radiation Oncology 02/24/25 Mill Tender Relationship Specialty Start Date End Date Price Key DO [address] [place] [address] PCP - General Family Medicine 01/24/25 Cortney Desouza MD [address] [place] [phone] Ent - Otolaryngology 02/15/25 Ilan Simon MD [address] [place] [address] Radiation Oncology 02/24/25 Mill Tender Relationship Specialty Start Date End Date Price Key DO [address] [place] [address] PCP - General Family Medicine 01/24/25 Cortney Desouza MD [address] [place] [address] Ent - Otolaryngology 02/15/25 Ilan Simon MD [address] [place] [address] Radiation Oncology 02/24/25 Mill Tender Relationship Specialty Start Date End Date Price Key DO [address] [facility] [place] [address] PCP - General Family Medicine 01/24/25 Cortney Desouza MD [address] [place] [phone] Ent - Otolaryngology 02/15/25 Ilan Simon MD [address] [facility] [place], [place] [address] Radiation Oncology 02/24/25 Mill Tender Relationship Specialty Start Date End Date Price Key DO [address] [place] [address] PCP - General Family Medicine 01/24/25 Cortney Desouza MD [address] [place] [phone] Ent - Otolaryngology 02/15/25 Ilan Simon MD [address] [place] [address] Radiation Oncology 02/24/25 Mill Tender Relationship Specialty Start Date End Date Price Key DO [address] [facility] [place] [address] PCP - General Family Medicine 01/24/25 Cortney Desouza MD [address] [place] [phone] Ent - Otolaryngology 02/15/25 Ilan Simon MD [address] [place] [address] Radiation Oncology 02/24/25 Mill Tender Relationship Specialty Start Date End Date Price Key DO [address] [facility] [place] [address] PCP - General Family Medicine 01/24/25 Cortney Desouza MD [address] [place] [phone] Ent - Otolaryngology 02/15/25 Ilan Simon MD [address] [place] [address] Radiation Oncology 02/24/25 Blake Martínez DO [address] [place] [address] Hematology/Oncology 05/09/25 Gabbi Stock RN Specialty Technical Internship Oncology 05/09/25 Mill Tender Relationship Specialty Start Date End Date Price Key DO [address] [place] [address] PCP - General Family Medicine 01/24/25 Cortney Desouza MD [address] [place] [phone] Ent - Otolaryngology 02/15/25 Ilan Simon MD [address] [place] [address] Radiation Oncology 02/24/25 Blake Martínez DO [address] [place] [address] Hematology/Oncology 05/09/25 Gabbi Stock RN Specialty Technical Internship Oncology 05/09/25 Ilan Simon MD [address] [place] [address] Radiation Oncology 05/19/25 Mill Tender Relationship Specialty Start Date End Date Price Key DO [address] [place] [address] [place] [address] PCP - General Family Medicine 01/24/25 Cortney Desouza MD [address] [place] [phone] Ent - Otolaryngology 02/15/25 Ilan Simon MD [address] [place] [address] Radiation Oncology 02/24/25 Blake Martínez DO [address] [place] [address] Hematology/Oncology 05/09/25 Gabbi Stock RN Specialty Technical Internship Oncology 05/09/25 Ilan Simon MD [address] [place] [address] Radiation Oncology 05/19/25 Mill Tender Relationship Specialty Start Date End Date Price Key DO [address] [facility] [place] [address] PCP - General Family Medicine 01/24/25 Cortney Desouza MD [address] [place] [phone] Ent - Otolaryngology 02/15/25 Ilan Simon MD [address] [place] [address] Radiation Oncology 02/24/25 Blake Martínez DO [address] [place] [address] Hematology/Oncology 05/09/25 Gabbi Stock RN Specialty Technical Internship Oncology 05/09/25 Ilan Simon MD [address] [place] [address] Radiation Oncology 05/19/25 Mill Tender Relationship Specialty Start Date End Date Price Key DO [address] [facility] [place] [address] PCP - General Family Medicine 01/24/25 Cortney Desouza MD [address] [place] [address] Ent - Otolaryngology 02/15/25 Ilan Simon MD [address] [place] [address] Radiation Oncology 02/24/25 Mill Tender Relationship Specialty Start Date End Date Price Key DO [address] [facility] [place] [address] PCP - General Family Medicine 01/24/25 Cortney Desouza MD [address] [place] [phone] Ent - Otolaryngology 02/15/25 Ilan Simon MD [address] [place] [address] Radiation Oncology 02/24/25 Blake Martínez DO [address] [place] [address] Hematology/Oncology 05/09/25 Gabbi Stock RN Specialty Technical Internship Oncology 05/09/25 Ilan Simon MD [address] [place] [address] Radiation Oncology 05/19/25 Mill Tender Relationship Specialty Start Date End Date Price Key DO [address] [place] [address] PCP - General Family Medicine 01/24/25 Cortney Desouza MD [address] [place] [address] Ent - Otolaryngology 02/15/25 Ilan Simon MD [address] [place], [place] [address] [phone] Radiation Oncology 02/24/25 Blake Martínez DO [address] [place] [address] Hematology/Oncology 05/09/25 Gabbi Stock RN Specialty Technical Internship Oncology 05/09/25 Ilan Simon MD [address] [place] [address] Radiation Oncology 05/19/25 Mill Tender Relationship Specialty Start Date End Date Price Key DO [address] [place] [address] PCP - General Family Medicine 01/24/25 Cortney Desouza MD [address] [place] [phone] Ent - Otolaryngology 02/15/25 Ilan Simon MD [address] [place] [address] Radiation Oncology 02/24/25 Blake Martínez DO [address] [place] [address] Hematology/Oncology 05/09/25 Gabbi Stock RN Specialty Technical Internship Oncology 05/09/25 Ilan Simon MD [address] [place] [address] Radiation Oncology 05/19/25 Mill Tender Relationship Specialty Start Date End Date Price Key DO [address] [place] [address] PCP - General Family Medicine 01/24/25 Cortney Desouza MD [address] [place] [phone] Ent - Otolaryngology 02/15/25 Ilan Simon MD [address] [place] [address] Radiation Oncology 02/24/25 Blake Martínez DO [address] [place] [address] Hematology/Oncology 05/09/25 Gabbi Stock RN Specialty Technical Internship Oncology 05/09/25 Ilan Simon MD [address] [place] [address] Radiation Oncology 05/19/25 Mill Tender Relationship Specialty Start Date End Date Price Key DO [address] [place] [address] PCP - General Family Medicine 01/24/25 Cortney Desouza MD [address] [place] [phone] Ent - Otolaryngology 02/15/25 Ilna Simon MD [address] [place] [address] Radiation Oncology 02/24/25 Blake Martínez DO [address] [place] [address] Hematology/Oncology 05/09/25 Gabbi Stock RN Specialty Technical Internship Oncology 05/09/25 Ilan Simon MD [address] [place] [address] Radiation Oncology 05/19/25 Source Comments (unrecognize d section and content) In the event this informatio n is protected by the Federal Confidentiality of Alcohol and Drug Abuse Patient Records regulations: The Federal rules restrict any use of the information to criminally investigate or prosecute any alcohol or drug abuse patient.[facility] the event this information is protected by the Federal Confidentiality of Alcohol and Drug Abuse Patient Records regulations: The Federal rules restrict any use of the information to criminally investigate or prosecute any alcohol or drug abuse patient.[facility] HospitalIn the event this information is protected by the Federal Confidentiality of Alcohol and Drug Abuse Patient Records regulations: The Federal rules restrict any use of the information to criminally investigate or prosecute any alcohol or drug abuse patient.[facility] HospitalIn the event this information is protected by the Federal Confidentiality of Alcohol and Drug Abuse Patient Records regulations: The Federal rules restrict any use of the information to criminally investigate or prosecute any alcohol or drug abuse patient.[facility] HospitalIn the event this information is protected by the Federal Confidentiality of Alcohol and Drug Abuse Patient Records regulations: The Federal rules restrict any use of the information to criminally investigate or prosecute any alcohol or drug abuse patient.[facility] HospitalIn the event this information is protected by the Federal Confidentiality of Alcohol and Drug Abuse Patient Records regulations: The Federal rules restrict any use of the information to criminally investigate or prosecute any alcohol or drug abuse patient.[facility] HospitalIn the event this information is protected by the Federal Confidentiality of Alcohol and Drug Abuse Patient Records regulations: The Federal rules restrict any use of the information to criminally investigate or prosecute any alcohol or drug abuse patient.[facility] HospitalIn the event this information is protected by the Federal Confidentiality of Alcohol and Drug Abuse Patient Records regulations: The Federal rules restrict any use of the information to criminally investigate or prosecute any alcohol or drug abuse patient.[facility] HospitalIn the event this information is protected by the Federal Confidentiality of Alcohol and Drug Abuse Patient Records regulations: The Federal rules restrict any use of the information to criminally investigate or prosecute any alcohol or drug abuse patient.[facility] HospitalIn the event this information is protected by the Federal Confidentiality of Alcohol and Drug Abuse Patient Records regulations: The Federal rules restrict any use of the information to criminally investigate or prosecute any alcohol or drug abuse patient.[facility] HospitalIn the event this information is protected by the Federal Confidentiality of Alcohol and Drug Abuse Patient Records regulations: The Federal rules restrict any use of the information to criminally investigate or prosecute any alcohol or drug abuse patient.[facility] HospitalIn the event this information is protected by the Federal Confidentiality of Alcohol and Drug Abuse Patient Records regulations: The Federal rules restrict any use of the information to criminally investigate or prosecute any alcohol or drug abuse patient.[facility] HospitalIn the event this information is protected by the Federal Confidentiality of Alcohol and Drug Abuse Patient Records regulations: The Federal rules restrict any use of the information to criminally investigate or prosecute any alcohol or drug abuse patient.[facility] HospitalIn the event this information is protected by the Federal Confidentiality of Alcohol and Drug Abuse Patient Records regulations: The Federal rules restrict any use of the information to criminally investigate or prosecute any alcohol or drug abuse patient.[facility] HospitalIn the event this information is protected by the Federal Confidentiality of Alcohol and Drug Abuse Patient Records regulations: The Federal rules restrict any use of the information to criminally investigate or prosecute any alcohol or drug abuse patient.[facility] HospitalIn the event this information is protected by the Federal Confidentiality of Alcohol and Drug Abuse Patient Records regulations: The Federal rules restrict any use of the information to criminally investigate or prosecute any alcohol or drug abuse patient.[facility] HospitalIn the event this information is protected by the Federal Confidentiality of Alcohol and Drug Abuse Patient Records regulations: The Federal rules restrict any use of the information to criminally investigate or prosecute any alcohol or drug abuse patient.[facility] HospitalIn the event this information is protected by the Federal Confidentiality of Alcohol and Drug Abuse Patient Records regulations: The Federal rules restrict any use of the information to criminally investigate or prosecute any alcohol or drug abuse patient.[facility] HospitalIn the event this information is protected by the Federal Confidentiality of Alcohol and Drug Abuse Patient Records regulations: The Federal rules restrict any use of the information to criminally investigate or prosecute any alcohol or drug abuse patient.[facility] HospitalIn the event this information is protected by the Federal Confidentiality of Alcohol and Drug Abuse Patient Records regulations: The Federal rules restrict any use of the information to criminally investigate or prosecute any alcohol or drug abuse patient.[facility] HospitalIn the event this information is protected by the Federal Confidentiality of Alcohol and Drug Abuse Patient Records regulations: The Federal rules restrict any use of the information to criminally investigate or prosecute any alcohol or drug abuse patient.[facility] HospitalIn the event this information is protected by the Federal Confidentiality of Alcohol and Drug Abuse Patient Records regulations: The Federal rules restrict any use of the information to criminally investigate or prosecute any alcohol or drug abuse patient.[facility] HospitalIn the event this information is protected by the Federal Confidentiality of Alcohol and Drug Abuse Patient Records regulations: The Federal rules restrict any use of the information to criminally investigate or prosecute any alcohol or drug abuse patient.[facility] HospitalIn the event this information is protected by the Federal Confidentiality of Alcohol and Drug Abuse Patient Records regulations: The Federal rules restrict any use of the information to criminally investigate or prosecute any alcohol or drug abuse patient.[facility] HospitalIn the event this information is protected by the Federal Confidentiality of Alcohol and Drug Abuse Patient Records regulations: The Federal rules restrict any use of the information to criminally investigate or prosecute any alcohol or drug abuse patient.[facility] HospitalIn the event this information is protected by the Federal Confidentiality of Alcohol and Drug Abuse Patient Records regulations: The Federal rules restrict any use of the information to criminally investigate or prosecute any alcohol or drug abuse patient.[facility] HospitalIn the event this information is protected by the Federal Confidentiality of Alcohol and Drug Abuse Patient Records regulations: The Federal rules restrict any use of the information to criminally investigate or prosecute any alcohol or drug abuse patient.[facility] HospitalIn the event this information is protected by the Federal Confidentiality of Alcohol and Drug Abuse Patient Records regulations: The Federal rules restrict any use of the information to criminally investigate or prosecute any alcohol or drug abuse patient.[facility] HospitalIn the event this information is protected by the Federal Confidentiality of Alcohol and Drug Abuse Patient Records regulations: The Federal rules restrict any use of the information to criminally investigate or prosecute any alcohol or drug abuse patient.[facility] Reason for Visit (unrecogniz ed section and content) Reason Comments Hospital F/U Reason Comments Results Reason Comments New Patient New Pt: ED follow up for pericardial effusionPt still having chest discomfort. [place] ruled out cardiac cause.Pt also has SOB Echo and EKG completed in hospital. Pt frustrated and would like to know what is causing the discomfort. 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) Procedures CONSULT TO HEMATOLOGY/ONCOLOGY OFFICE/OUTPATIENT NEW HIGH MDM 60 MINUTES Cortney Desouza MD [address] [place] [address] Phone: tel: fax: Referral ID Status Reason Start Date Expiration Date V isits Requested Visits Authorized [id number] Closed PCP Requested Referral 02/15/2025 05/16/2025 1 1 Reason Comments Technical Internship - Other Introduction Reason Comments Consult Specialty Diagnoses / Procedures Referred By Contac t Referred To Contact Radiation Oncology Diagnoses 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) Procedures RAD/ONC CONSULT OFFICE/OUTPATIENT NEW HIGH MDM 60 MINUTES Cortney Desouza MD [address] [place] [address] Phone: tel: fax: Referral ID Status Reason Start Date Expiration Date V isits Requested Visits Authorized [id number] Closed PCP Requested Referral 02/22/2025 02/15/2026 1 1 Reason Comments Pre-Op Visit Reason Comments Hearing Loss Reason Comments Consult surgery on 05/04/25 at [facility] Specialty Diagnoses / Procedures Referred By Contac t Referred To Contact Diagnoses Cancer of parotid gland (HCC) Procedures REFER TO [facility] - PREOPERATIVE OPTIMIZATION OFFICE/OUTPATIENT NEW HIGH MDM 60 MINUTES Matt Olivo MD [address] [place] [address] Phone: tel: fax: Referral ID Status Reason Start Date Expiration Date V isits Requested Visits Authorized [id number] Closed PCP Requested Referral 04/17/2025 04/17/2026 1 1 Reason Comments Patient Update Reason Comments Post Op Reason Comments New Patient Specialty Diagnoses / Procedures Referred By Contac t Referred To Contact Ent - Otolaryngology Diagnoses 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 This clinical summary was aggregated from multiple sources. Caution should be exercised in using it in the provision of clinical care. This summary normalizes information from multiple sources, and as a consequence, information in this document may materially change the coding, format and clinical context of patient data. In addition, data may be omitted in some cases. CLINICAL DECISIONS SHOULD BE BASED ON THE PRIMARY CLINICAL RECORDS. [email or web address] provides no warranty or guarantee of the accuracy or completeness of information in this document.
--- NOTE | 2025-08-20 16:43 | EKG12_ITS ---
Test Reason : sob Blood Pressure : */* mmHG Vent. Rate : 79 BPM Atrial Rate : 79 BPM P-R Int : 146 ms QRS Dur : 70 ms QT Int : 380 ms P-R-T Axes : 73 7 65 degrees QTcB Int : 435 ms Normal sinus rhythm Low voltage QRS Borderline ECG Confirmed by YESENIA FONTANEZ, RODRIGO ([id number]), clinical editor JOSÉ MIGUEL RICKS ([id number]) on 08/21/2025 1:10:02 PM Referred By: Confirmed By: RODRIGO PATTERSON MD
[2025-08-20 16:56] LABS: Hematocrit 40.7 % (40-54); Hemoglobin 13.6 g/dL (13.0-16.5); Immature Granulocytes Count 0.120 X10^3/uL (0.0-0.0); Mean Corp Hgb Conc 33.4 g/dL (32-36); Mean Corpuscular Volume 88.9 fL (80-94); Mean Platelet Vol. 8.4 fl (6.2-12.0); NRBC Flagged by Analyzer 0 % (0-5); Platelet Count 310 K/mm3 (150-450); RBC Distribution Width CV 14.7 % (11.6-14.6); RBC Distribution Width SD 46.5 fl (35.1-43.9); Red Blood Count 4.58 M/mm3 (4.6-6.2); White Blood Count 6.8 K/mm3 (4.4-11.0)
[2025-08-20 17:04] LABS: Prothrombin Time (Protime)PT. 13.3 SECONDS (11.7-14.9)
[2025-08-20 17:05] LABS: Partial Thromboplast Time 31.1 Seconds (24.1-36.2)
[2025-08-20 17:10] LABS: Base Excess -2 mmol/L (-2 to +2); FI02 2.0; PO2 89 mmHG (75-100); SITE L Brach; SO2 98 % (94-98)
--- NOTE | 2025-08-20 17:12 | RAD_ITS ---
PROCEDURE: CHEST 1 VIEW (PORTABLE) 08/20/2025 REASON FOR EXAM: RESPIRATORY DISTRESS TECHNIQUE: Frontal view of the chest. COMPARISON: 04/09/2022. FINDINGS: The heart appears enlarged which may be due to cardiomegaly or AP technique. Small to moderate right pleural effusion. Superimposed atelectasis or infiltrate is likely. No acute osseous abnormalities. RAD/Chest 1 View (Portable) IMPRESSION: Pulmonary findings as above. Reading Location: [id number]
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
[2025-08-20 17:26] LABS: AST(SGOT) 42 U/L (<=37); Alanine Aminotransfer ALT/SGPT 37 U/L (<=46); Albumin, Serum 3.7 g/dL (3.4-4.8); Alkaline Phosphatase 97 U/L (40-129); Anion Gap 12 (5-15); BUN 21 mg/dL (4-19); BUN/Creat Ratio 19.9 RATIO (10-20); Calcium,Total 9.4 mg/dL (7.6-11.0); Carbon Dioxide 24.2 mmol/L (21.0-32.0); Chloride 98 mmol/L (98-108); Estimated Creatinine Clearance 60.12 ml/min (50-250); Globulin 3.5 g/dL (2.2-4.2); Glucose 102 mg/dL (70-99); Potassium 5.3 mmol/L (3.3-5.1)
[2025-08-20 17:47] LABS: Troponin T High Sensitivity 12 ng/L (<=22)
[2025-08-20] MEDS: 0.9% Normal Saline (500mL Bag) 500 ML 999 ML IV ×2 (18:43→21:24)
[2025-08-20 19:10] LABS: Troponin T High Sens 2 HR 11 ng/L (<=22)
--- NOTE | 2025-08-20 22:00 | ED.RN ---
this RN in room to flush PEG per family request. Verified placement, flushed with 120 cc sterile water.
--- NOTE | 2025-08-20 23:38 | CT_ITS ---
PROCEDURE: BRAIN/HEAD WITHOUT CONTRAST 08/21/2025 REASON FOR EXAM: ACUTE CHANGE IN MENTAL STATUS TECHNIQUE: Procedure Code: CTBR Modality: CT Procedure: BRAIN/HEAD WITHOUT CONTRAST Coronal and Sagittal reconstruction series were provided. One or more dose reduction techniques were used (e.g., Automated exposure control, adjustment of the mA and/or kV according to patient size, use of iterative reconstruction technique. RADIATION DOSE SUMMARY: CTDI Vol 44.99 mGy DLP :846.73 mGycm COMPARISON: 14-Dec-2021 FINDINGS: Applied frontal bone metallic plate and left orbital density inducing beam hardening artifacts markedly degrading the images quality hindering proper assessment of the cerebral hemispheres mainly masking the fronto-temporal regions. The visualized davis-white matter differentiation is maintained. Unremarkable posterior fossa structures. No obvious intracerebral or extra axial hemorrhage. Dilated ventricular system, cortical sulci and extra-axial CSF spaces. No definite calvarial fractures. No midline shifts or deformity. The osseous structures in the skull base show right mastoiditis. Evidence of left mastoidectomy with non visualized left ossicular chain. Paranasal sinuses are unremarkable. Vascular atheromatous calcifications. CT/Brain/Head without Contrast IMPRESSION: No acute territorial cerebrovascular abnormalities, intra or extra-axial acute hemorrhage within the study limitations as detailed. Reading Location[facility]
[2025-08-20] MEDS: 0.9% Normal Saline (1000mL) 1,000 ML 1000 ML IV (23:48)
[2025-08-20 23:56] LABS: Mucous, Urine 0 SEEN /hpf (<or=2+); Red Blood Cells-Urine 0 SEEN /hpf (0-5); Squamous Epithelial Cells - UA 0 SEEN /hpf (0-5)
[2025-08-20 23:57] LABS: Glucose, Dipstick Normal (Normal); Ketone-Dipstick 5 mg/dl (Negative); Leukocyte Esterase-Dipstick 100 /ul (Negative); Nitrite-Dipstick Negative (Negative); Occult Blood-Urine 25 /ul (Negative); Protein-Dipstick 30 mg/dl (Negative); Specific Gravity, Urine 1.020 (1.002-1.030); Urine Bilirubin Dipstick Negative (Negative)
[2025-08-21] VITALS: BP 152/85; PULSE 88; RESP 26; O2SAT 100
[2025-08-21 00:04] LABS: Color, Urine Yellow (Yellow)
[2025-08-21 01:24] VITALS: BP 139/71; PULSE 75; RESP 23; TEMP 36.6; O2SAT 100
== END 2025-08-21 01:45 | disposition home or self-care (01) ==
PROVIDERS: Emergency Provider Emergency Medicine; Visit Provider Emergency Medicine
DX: G93.40 Encephalopathy, unspecified (principal); Z93.1 Gastrostomy status; C14.0 Malignant neoplasm of pharynx, unspecified; J90 Pleural effusion, not elsewhere classified; I10 Essential (primary) hypertension; Z87.891 Personal history of nicotine dependence; I95.9 Hypotension, unspecified; E78.00 Pure hypercholesterolemia, unspecified; K21.9 Gastro-esophageal reflux disease without esophagitis; I51.7 Cardiomegaly; R06.02 Shortness of breath
CPT/HCPCS: 51702; 96360; 96361 ×2; 99285; 36600; 70450; 71045; 80053; 81001; 82803; 83605; 84484; 85025; 85610; 85730; 87631; 93005; A4216

== ENCOUNTER 2025-08-22 10:46 | Inpatient (IN) | payer MEDICARE, SELFPAY ==
[2025-08-22] VITALS (7 sets, daily range): BP systolic 97–152; BP diastolic 67–87; PULSE 70–102; RESP 18–32; TEMP 36.4–37.3; O2SAT 96–100; BMI 28.7
--- NOTE | 2025-08-22 11:27 | EKG12_ITS ---
Test Reason : Blood Pressure : */* mmHG Vent. Rate : 74 BPM Atrial Rate : 74 BPM P-R Int : 152 ms QRS Dur : 70 ms QT Int : 406 ms P-R-T Axes : 73 17 67 degrees QTcB Int : 450 ms Normal sinus rhythm Low voltage QRS Borderline ECG Confirmed by YESENIA FONTANEZ, RODRIGO ([id number]), publications editor JOSÉ MIGUEL RICKS ([id number]) on 08/23/2025 9:15:25 AM Referred By: Confirmed By: RODRIGO PATTERSON MD
--- NOTE | 2025-08-22 11:27 | RAD_ITS ---
PROCEDURE: CHEST PA AND LATERAL 08/22/2025 REASON FOR EXAM: HYPOTENSION TECHNIQUE: Procedure Code: RADCXR Modality: DX Procedure: CHEST PA AND LATERAL COMPARISON: Portable chest, 08/20/2025 FINDINGS: There are bilateral pleural effusions with bibasilar atelectasis. There is cardiomegaly. There is calcific vascular disease of the thoracic aorta there is a percutaneous gastrostomy tube and a gastrojejunostomy tube. There are a few air-fluid levels in the upper abdomen. Status post left carotid endarterectomy. There are no significant bony abnormalities of the chest. RAD/Chest PA and Lateral IMPRESSION: 1. Bilateral pleural effusions with bibasilar atelectasis. 2. There are few air-fluid levels in the upper abdomen of questionable signifi cance. 3. Other findings as noted. Reading Location: [id number]
--- NOTE | 2025-08-22 11:30 | EX.ED.DYSGE1 ---
HPI History of Present Illness Chief Complaint: Hypotension Informant: patient and family (Accompanied by his [id number].) Onset/Context/Timing Onset: Days Context: Gradual Onset Timing: Continuous Current Severity: Moderate Maximum Severity: Moderate Narrative Narrative: 80-year-old male history of tongue cancer for which he is under: Chemotherapy which was stopped 3 weeks ago radiation therapy. He is having difficulty swallowing. Today he was seen at his oncologist office he had low blood pressure and a sentiment for further evaluation. He was seen in the last several days had a negative workup was discharged home. He has had some intermittent nausea vomiting and diarrhea. Denies any dysuria. Denies any fever. Prior similar symptoms: Yes Recent Illness/Hospitalization: Yes PFSH PFSH Medical History Fluid collection at surgical site Respiratory failure Loss of hearing Wears dentures Smoker History of stress test Hx of gastroesophageal reflux (GERD) Acute cholecystitis History of bladder cancer Obesity Hepatomegaly BPH (benign prostatic hyperplasia) GERD (gastroesophageal reflux disease) High cholesterol Hypertension Home Medications Medication Instructions Recorded Last Taken Type NK 08/21/25 Unknown History Allergy/AdvReac Type Severity Reaction Status Date / Time No Known Allergies Allergy Verified 08/22/25 10:48 Family History Brother Heart disease Hypertension CAD (coronary artery disease) Myocardial infarction Father Heart disease Hypertension CAD (coronary artery disease) Myocardial infarction Mother Alzheimer disease Surgical History History of laparoscopic cholecystectomy History of surgery of head H/O hand surgery H/O chest tube placement History of tonsillectomy and adenoidectomy History of bladder surgery Social History household members: none housing: house number of children: 1 current occupational status: retired Smoking Status: Former smoker how long ago did patient quit smoking: Quit 2015; started 18 w/ 1 pk/2.5 day until 10 cigar/d x 3 yrs. alcohol intake: never substance use type: does not use ROS ROS ED ROS Narrative Difficulty swallowing. Constitutional Constitutional ED: Denies chills or fever(s) Eyes Eyes: Denies blurry vision ENT ENT ED: Denies ear pain Cardiovascular Cardiovascular: Denies chest pain Respiratory/Chest Respiratory/Chest: Denies cough or dyspnea Gastrointestinal Gastrointestinal: Reports diarrhea, nausea and vomiting; Denies abdominal pain or constipation Genitourinary Genitourinary ED: Denies dysuria or hematuria Musculoskeletal Musculoskeletal: Denies arthralgias Integumentary Denies abscess Neurologic Neurologic: Denies headache(s) Psychiatric Psychiatric: Denies anxiety Endocrine Endocrinology: Denies cold intolerance Hematologic/Lymphatic Hematologic/Lymphatic: Reports none Allergic/Immunologic Allergic/Immunologic ED: Denies mouth swelling, tongue swelling or urticaria EXAM Physical Exam Narrative Exam Narrative: 80-year-old male sitting upright in bed. Vital signs show a blood pressure 90s over 60s heart rate of 102. Temperature 99.2 pulse ox percent on room air no signs hypoxia. H EENT exam pupils round react light. Very dry mucous membranes. Chronic changes in skin of his neck from radiation. I believe he has had also surgery to his neck due to the cancer and reconstructive surgery. Trachea midline. Lungs clear to auscultation. Heart regular rhythm rate about 102 no murmur. Chest wall ribs nontender. Back nontender. Abdomen is soft nontender. Normal bowel sounds without peritoneal signs. He does have a feeding tube in place. Patient moving all 4 extremities. Normal fishing rod trimmer strength. Normal dorsi plantarflexion. Neurologically he is awake. He follows limited commands. Const Vital Signs: 08/22/25 10:47 08/22/25 11:09 08/22/25 11:53 Temperature 99.2 F H Temperature Source Temporal Pulse Rate 102 H 83 Respiratory Rate 22 H 32 H Respiratory Pattern Tachypnea Blood Pressure 97/67 125/76 H Blood Pressure Mean 77 92 Pulse Ox 100 98 Oxygen Delivery Method Room Air Room Air 08/22/25 12:27 Temperature 98.8 F Temperature Source Oral Pulse Rate 70 Respiratory Rate 24 H Respiratory Pattern Blood Pressure 129/77 H Blood Pressure Mean 94 Pulse Ox 96 Oxygen Delivery Method Room Air MDM MDM MDM Narrative Medical decision making narrative: 80-year-old male clinically was dehydrated he is hypotensive. I reviewed his test from the which was 2 days ago actually did not look bad. He may need to be admitted for dehydration. I will do repeat exams clinically I do not think this is an infectious etiology at least less likely from his prior workup. He had negative UA at that time. Repeat exam around 12:50 PM. Patient's blood pressure is improved after the IV fluids. No significant change on his exam. I spoken to the hospitalist and should be done admit the patient to [facility]. Patient and family are comfortable with the plan. History & Record Review Discussion w/independent historian: Patient and Family Additional record(s) reviewed:: Prior outpatient record, Prior ED visit and Prior labs Lab Data Attestation: I reviewed the patient's lab results. Lab results narrative: CBC shows a white count 6 H&H 14 and 42. Platelets 337. Electrolytes show gap 13. BUN and creatinine of 20 and 1. Glucose 99. Liver enzymes unremarkable. Lactic acid less than 1. Chest x-ray right-sided pleural effusion. Chronic changes Labs: Laboratory Results - last 24 hr 08/22/25 08/22/25 11:05 11:25 WBC 6.7 RBC 4.72 Hgb 14.0 Hct 42.5 MCV 90.0 MCH 29.7 MCHC 32.9 RDW Std Deviation 47.8 H RDW Coeff of Mayra 14.7 H Plt Count 337 MPV 8.7 Immature Gran % (Auto) 1.800 H Neut % (Auto) 73.3 H Lymph % (Auto) 11.7 L [place] % (Auto) 10.8 H Eos % (Auto) 1.5 Baso % (Auto) 0.9 Absolute Neuts (auto) 4.9 Absolute Lymphs (auto) 0.78 L Nucleated RBC % 0 Sodium 135 Potassium 4.9 Chloride 100 Carbon Dioxide 23.2 Anion Gap 13 BUN 20 H Creatinine 1.08 Estim Creat Clear Calc 58.13 Est GFR (MDRD) Non-Af 70 BUN/Creatinine Ratio 18.6 Glucose 99 Lactic Acid < 1.0 Calcium 9.8 Total Bilirubin 0.67 AST 30 ALT 35 Alkaline Phosphatase 100 Total Protein 7.3 Albumin 3.9 Globulin 3.4 Albumin/Globulin Ratio 1.1 Radiography Chest X-Ray - ED: 2 View, Read by ED Physician, Read by Radiologist, Heart, Mediastinum, Bony Structures, No Acute Disease, Chronic Changes and Right Effusion Diagnostic Testing: Clinical Impression(s) from Imaging Studies Chest X-Ray 08/22/25 11:27 IMPRESSION: 1. Bilateral pleural effusions with bibasilar atelectasis. 2. There are few air-fluid levels in the upper abdomen of questionable significance. 3. Other findings as noted. Reading Location: [id number] Chest x-ray, 2 views, AP and lateral, interpreted both by myself and the radiologist Shows right pleural effusion. Nonspecific air-fluid levels in his abdomen. Rhythm Strip Rhythm Strip: Sinus Rhythm Rate: 74 Ectopy: None EKG Initial EKG: Attestation: I personally reviewed and interpreted this EKG as follows: Interpretation: Sinus Rhythm and No Acute Injury Pattern Comments: Normal sinus rhythm rate of 74 no acute signs of OR or ischemia. Discharge Plan Dx/Rx/DC Orders Clinical Impression: Acute hypotension, Acute dehydration, Hx of tongue cancer, Inability to swallow, Adult failure to thrive Disposition Disposition: Acute Care Hospital [facility]
[2025-08-22 11:34] LABS: Hematocrit 42.5 % (40-54); Hemoglobin 14.0 g/dL (13.0-16.5); Immature Granulocytes Count 0.120 X10^3/uL (0.0-0.0); Mean Corp Hgb Conc 32.9 g/dL (32-36); Mean Corpuscular Volume 90.0 fL (80-94); Mean Platelet Vol. 8.7 fl (6.2-12.0); NRBC Flagged by Analyzer 0 % (0-5); Platelet Count 337 K/mm3 (150-450); RBC Distribution Width CV 14.7 % (11.6-14.6); RBC Distribution Width SD 47.8 fl (35.1-43.9); Red Blood Count 4.72 M/mm3 (4.6-6.2); White Blood Count 6.7 K/mm3 (4.4-11.0)
[2025-08-22] MEDS: 0.9% Normal Saline (1000mL) 1,000 ML 1000 ML IV (11:52)
[2025-08-22 12:02] LABS: AST(SGOT) 30 U/L (<=37); Alanine Aminotransfer ALT/SGPT 35 U/L (<=46); Albumin, Serum 3.9 g/dL (3.4-4.8); Alkaline Phosphatase 100 U/L (40-129); Anion Gap 13 (5-15); BUN 20 mg/dL (4-19); BUN/Creat Ratio 18.6 RATIO (10-20); Calcium,Total 9.8 mg/dL (7.6-11.0); Carbon Dioxide 23.2 mmol/L (21.0-32.0); Chloride 100 mmol/L (98-108); Estimated Creatinine Clearance 58.13 ml/min (50-250); Globulin 3.4 g/dL (2.2-4.2); Glucose 99 mg/dL (70-99); Potassium 4.9 mmol/L (3.3-5.1)
--- NOTE | 2025-08-22 12:43 | PCM.HP.STD ---
HPI - General General Date of Admission: 08/22/25 Date of Service: 08/22/25 Chief Complaint: hypotension HPI Narrative ORTIZ MELISSA, is a 80 M with a PMH as outlined including a history of tongue cancer for which he was on radiation who was admitted via the ED on 08/22/2025 with a complaint of hypotension. The radiation and chemo was stopped ~ 3 weeks ago because he could not tolerate the chemo and could not swallow. He went to see his oncologist today and was found to have low blood pressure so was sent in to the ED. He had been seen in the ED a few days ago and was discharged after a negative workup. He denied any sore throat, nausea, vomiting or any other symptoms. He had not been tolerating his tube feeds as well. According to [id number] who was present, patient had been started on tube feeds about 2 weeks prior to admission. He was supposed to get 1250 mL daily. However he had received this only twice over the last 2 weeks as he had not been tolerating the tube feeds and not had nausea and vomiting as well as diarrhea with the particular tube feed that he was on. They do not member the name of this tube feed. Since last which was about 5 days prior to admission he had not gotten much of the tube feeds at all. Vitals in the ED were blood pressure 129/77, pulse rate of 70, respiratory rate of 24 and temperature of 98.8 Fahrenheit. He was saturating 96% on room air. CBC showed hemoglobin of 14 with WBC of 6.7 and platelets of 337. Chemistry showed sodium of 135 with potassium of 4.9 and bicarb of 23.2 with creatinine of 1.08. Total bilirubin, AST and ALT as well as ALP were within normal limits. Chest x-ray showed bilateral pleural effusions with bibasilar atelectasis and few air-fluid levels in the upper abdomen of questionable significance. He is being admitted to be managed for failure to thrive and dehydration in a patient with known tongue cancer. [facility] Medical History Fluid collection at surgical site Respiratory failure Loss of hearing Wears dentures Smoker History of stress test Hx of gastroesophageal reflux (GERD) Acute cholecystitis History of bladder cancer Obesity Hepatomegaly BPH (benign prostatic hyperplasia) GERD (gastroesophageal reflux disease) High cholesterol Hypertension Home Medications Medication Instructions Recorded Last Taken Type NK 08/21/25 Unknown History Allergy/AdvReac Type Severity Reaction Status Date / Time No Known Allergies Allergy Verified 08/22/25 10:48 Family History Brother Heart disease Hypertension CAD (coronary artery disease) Myocardial infarction Father Heart disease Hypertension CAD (coronary artery disease) Myocardial infarction Mother Alzheimer disease Surgical History History of laparoscopic cholecystectomy History of surgery of head H/O hand surgery H/O chest tube placement History of tonsillectomy and adenoidectomy History of bladder surgery Social History household members: none housing: house number of children: 1 current occupational status: retired Smoking Status: Former smoker how long ago did patient quit smoking: Quit 2015; started 18 w/ 1 pk/2.5 day until 10 cigar/d x 3 yrs. alcohol intake: never substance use type: does not use ROS Constitutional Constitutional: Reports anorexia, fatigue, malaise and weakness; Denies chills or fever(s) Eyes Eyes: Denies change in vision ENT HEENT: Reports dysphagia; Denies epistaxis, headache(s) or sore throat Cardiovascular Cardiovascular: Denies chest pain, dyspnea on exertion, edema, lightheadedness, orthopnea, palpitations, rapid heart rate or syncope Respiratory/Chest Respiratory/Chest: Denies cough, dyspnea, shortness of breath at rest or shortness of breath with exertion Gastrointestinal Gastrointestinal: Reports diarrhea, nausea and vomiting; Denies abdominal pain, constipation or dyspepsia Genitourinary Genitourinary: Denies burning urination or dysuria Musculoskeletal Musculoskeletal: Denies joint pain Neurologic Neurologic: Denies confusion, dizziness, focal weakness, headache(s) or numbness Psychiatric Psychiatric: Denies anxiety or depression Vital Signs Vital Signs Vital Signs: 08/22/25 10:47 08/22/25 11:09 08/22/25 11:53 Temperature 99.2 F H Temperature Source Temporal Pulse Rate 102 H 83 Respiratory Rate 22 H 32 H Respiratory Pattern Tachypnea Blood Pressure 97/67 125/76 H Blood Pressure Mean 77 92 Pulse Ox 100 98 Oxygen Delivery Method Room Air Room Air 08/22/25 12:27 Temperature 98.8 F Temperature Source Oral Pulse Rate 70 Respiratory Rate 24 H Respiratory Pattern Blood Pressure 129/77 H Blood Pressure Mean 94 Pulse Ox 96 Oxygen Delivery Method Room Air Weight Weight: 183 lb 3.266 oz Body Mass Index (BMI) 28.7 Physical Exam Const alert, oriented x3 and no apparent distress Constitutional Narrative: frail and weak looking General Appearance: cooperative HEENT normocephalic, head/scalp atraumatic and hearing grossly normal bilaterally HEENT Narrative: dry oral mucosa; chronic erythema on neck from radiation effect Eyes EOMs intact bilaterally and conjunctivae normal Neck supple Resp normal respiratory effort, no use of accessory muscles and clear to auscultation bilaterally Cardio regular rate, regular rhythm, S1 normal heart sound, S2 normal heart sound and no murmurs GI normal to inspection, nondistended, normoactive bowel sounds, soft to palpation, non-tender and non-distended GI Narrative: PEG tube in situ Extremity normal to inspection and full ROM Skin Skin Narrative: radiation changes on neck Neuro oriented x3 and moves all extremities Sensorium / Orientation: awake Psych affect normal Results Lab / Micro Data 08/22/25 11:05 08/22/25 11:05 Labs: Laboratory Results - last 24 hr 08/22/25 11:05: WBC 6.7, RBC 4.72, Hgb 14.0, Hct 42.5, MCV 90.0, MCH 29.7, MCHC 32.9, RDW Std Deviation 47.8 H, RDW Coeff of Mayra 14.7 H, Plt Count 337, MPV 8.7, Immature Gran % (Auto) 1.800 H, Neut % (Auto) 73.3 H, Lymph % (Auto) 11.7 L, [place] % (Auto) 10.8 H, Eos % (Auto) 1.5, Baso % (Auto) 0.9, Absolute Neuts (auto) 4.9, Absolute Lymphs (auto) 0.78 L, Nucleated RBC % 0, Sodium 135, Potassium 4.9, Chloride 100, Carbon Dioxide 23.2, Anion Gap 13, BUN 20 H, Creatinine 1.08, Estim Creat Clear Calc 58.13, Est GFR (MDRD) Non-Af 70, BUN/Creatinine Ratio 18.6, Glucose 99, Calcium 9.8, Total Bilirubin 0.67, AST 30, ALT 35, Alkaline Phosphatase 100, Total Protein 7.3, Albumin 3.9, Globulin 3.4, Albumin/Globulin Ratio 1.1 08/22/25 11:25: Lactic Acid < 1.0 Imaging Radiology Impression Chest X-Ray 08/22/25 11:27 IMPRESSION: 1. Bilateral pleural effusions with bibasilar atelectasis. 2. There are few air-fluid levels in the upper abdomen of questionable significance. 3. Other findings as noted. Reading Location: [id number] Assessment & Plan Assessment/Plan (1) Adult failure to thrive: (2) Acute dehydration: PLAN: Plan #Hypotension and failure to thrive likely due to decreased intake and malnutrition Patient has a history of tongue cancer and had surgery for this as well as having chemotherapy and radiation. Chemotherapy was stopped about 3 weeks ago because he could not tolerated and he had a session of radiation yesterday but his oncologist apparently planning to hold off on this for a while to due to patient's performance status. He came into the ED because of weakness and lethargy and was found to be hypotensive in his oncologist office today. Patient had been started on tube feeds about 2 weeks ago but has not been getting the amount he is supposed to because he could not tolerate the tube feeds. He is post to get 1.25 L of tube feed daily but has gotten this only twice over the last 2 weeks and since last he has barely gotten any acidosis. He has also had diarrhea and nausea and vomiting with this. He is not able to take in orally at all due to worsening odynophagia and dysphagia from the cancer and radiation. Hypotension is likely due to dehydration and decreased intake and malnutrition. Labs are essentially unremarkable. Hypotension resolved with hydration in the ED. Will continue hydration with D5 normal saline at 125 cc/h. Consult nutrition to give recommendation for tube feeds. Will keep n.p.o. due to severe dysphagia and odynophagia waking it impossible for him to swallow. Consult PT OT. Fall precautions. #History of tongue cancer: As stated follows with oncology. Was diagnosed earlier this year and has had surgery namely resection of the tongue. Was on chemotherapy for this. 3 weeks ago and was on radiation and chemo for which she had a session yesterday. According to [id number] his oncologist is planning to hold off on further radiation sessions for now due to patient's weakness and poor performance status. # Debility and weakness due to failure to thrive: As above. PT OT consulted. Fall precautions. DVT prophylaxis: Lovenox CODE STATUS: Full code Patient counseled extensively about different types of CODE STATUS including full code, DNR CCA and DNR CCA. Patient elects to be full code and wants CPR and intubation if needed. Total [id number] time 16 minutes. Charges/Coding Visit Charges Inpatient E&M: 79641 Init Hosp L3 Procedures Hospitalists Procedures: 35220 Advncd Care Plan 30 Min
[2025-08-22] MEDS: 0.9% Saline Lock 10 ML Syringe IV (15:26)
[2025-08-22] MEDS: 0.9% Normal Saline (1000mL) 1,000 ML 125 ML IV (15:33)
[2025-08-22] MEDS: Dextrose 5%/0.9% NaCl 1,000 ML 125 ML IV (16:21)
[2025-08-23] MEDS: Dextrose 5%/0.9% NaCl 1,000 ML 125 ML IV ×2 (00:39→16:02)
[2025-08-23 02:00] VITALS: BP 148/89; PULSE 68; RESP 18; TEMP 36.6; O2SAT 97
[2025-08-23 06:55] LABS: Hematocrit 36.4 % (40-54); Hemoglobin 12.0 g/dL (13.0-16.5); Immature Granulocytes Count 0.080 X10^3/uL (0.0-0.0); Mean Corp Hgb Conc 33.0 g/dL (32-36); Mean Corpuscular Volume 89.7 fL (80-94); Mean Platelet Vol. 8.6 fl (6.2-12.0); NRBC Flagged by Analyzer 0 % (0-5); Platelet Count 267 K/mm3 (150-450); RBC Distribution Width CV 14.7 % (11.6-14.6); RBC Distribution Width SD 47.6 fl (35.1-43.9); Red Blood Count 4.06 M/mm3 (4.6-6.2); White Blood Count 4.8 K/mm3 (4.4-11.0)
[2025-08-23 07:15] LABS: Anion Gap 8 (5-15); BUN 13 mg/dL (4-19); BUN/Creat Ratio 15.1 RATIO (10-20); Calcium,Total 8.7 mg/dL (7.6-11.0); Carbon Dioxide 22.5 mmol/L (21.0-32.0); Chloride 106 mmol/L (98-108); Estimated Creatinine Clearance 74.73 ml/min (50-250); Glucose 118 mg/dL (70-99); Potassium 4.7 mmol/L (3.3-5.1)
[2025-08-23 08:54] VITALS: BP 149/81; PULSE 64; RESP 16; TEMP 36.5; O2SAT 100
--- NOTE | 2025-08-23 10:15 | PN_ITS ---
Subjective Subjective Patient seen and examined. He had no active complaints and denies any diarrhea, nausea, vomiting, shortness of breath or any other symptoms. Review of systems is otherwise negative. He has remained hemodynamically stable and is on room air. Objective Data Objective Data Vital Signs: Vital Signs Temp Pulse Resp BP Pulse Ox O2 Del Method 97.7 F L 64 16 149/81 H 100 Room Air 08/23/25 08:54 08/23/25 08:54 08/23/25 08:54 08/23/25 08:54 08/23/25 08:54 08/23/25 08:54 Oxygen Delivery Method Room Air Weight: 183 lb 3.2 oz Body Mass Index (BMI) 28.7 Intake & Output: Intake and Output for Last 24 Hours 08/21/25 08/22/25 08/23/25 23:59 23:59 23:59 Intake Total 1202.08 / 1302.08 2200 / 2200 Balance 1202.08 / 1302.08 2200 / 2200 Lab / Micro Data 08/23/25 06:18 08/23/25 06:18 Labs: Laboratory Results - last 24 hr 08/22/25 11:05: WBC 6.7, RBC 4.72, Hgb 14.0, Hct 42.5, MCV 90.0, MCH 29.7, MCHC 32.9, RDW Std Deviation 47.8 H, RDW Coeff of Mayra 14.7 H, Plt Count 337, MPV 8.7, Immature Gran % (Auto) 1.800 H, Neut % (Auto) 73.3 H, Lymph % (Auto) 11.7 L, M angie % (Auto) 10.8 H, Eos % (Auto) 1.5, Baso % (Auto) 0.9, Absolute Neuts (auto) 4.9, Absolute Lymphs (auto) 0.78 L, Nucleated RBC % 0, Sodium 135, Potassium 4.9, Chloride 100, Carbon Dioxide 23.2, Anion Gap 13, BUN 20 H, Creatinine 1.08, Estim Creat Clear Calc 58.13, Est GFR (MDRD) Non-Af 70, BUN/Creatinine Ratio 18.6, Glucose 99, Calcium 9.8, Total Bilirubin 0.67, AST 30, ALT 35, Alkaline Phosphatase 100, Total Protein 7.3, Albumin 3.9, Globulin 3.4, Albumin/Globulin Ratio 1.1 08/22/25 11:25: Lactic Acid < 1.0 08/23/25 06:18: WBC 4.8, RBC 4.06 L, Hgb 12.0 L, Hct 36.4 L, MCV 89.7, MCH 29.6, MCHC 33.0, RDW Std Deviation 47.6 H, RDW Coeff of Mayra 14.7 H, Plt Count 267, MPV 8.6, Immature Gran % (Auto) 1.700 H, Neut % (Auto) 65.2, Lymph % (Auto) 16.2 L, [place] % (Auto) 13.2 H, Eos % (Auto) 2.9, Baso % (Auto) 0.8, Absolute Neuts (auto) 3.1, Absolute Lymphs (auto) 0.77 L, Nucleated RBC % 0, Sodium 136, Potassium 4.7, Chloride 106, Carbon Dioxide 22.5, Anion Gap 8, BUN 13, Creatinine 0.84, Estim Creat Clear Calc 74.73, Est GFR (MDRD) Non-Af 89, BUN/Creatinine Ratio 15.1, Glucose 118 H, Calcium 8.7 Radiography Diagnostic Testing: Radiology Impression Chest X-Ray 08/22/25 11:27 IMPRESSION: 1. Bilateral pleural effusions with bibasilar atelectasis. 2. There are few air-fluid levels in the upper abdomen of questionable significance. 3. Other findings as noted. Reading Location: [id number] Rhythm Strip Rhythm Strip: Sinus Rhythm Rate: 74 Ectopy: None Physical Exam Const alert, oriented x3 and no apparent distress Constitutional Narrative: frail and weak looking General Appearance: cooperative HEENT normocephalic, head/scalp atraumatic and hearing grossly normal bilaterally Eyes EOMs intact bilaterally and conjunctivae normal Neck supple Resp normal respiratory effort, normal air movement, no use of accessory muscles and clear to auscultation bilaterally Cardio regular rate, regular rhythm, S1 normal heart sound, S2 normal heart sound and no murmurs GI normal to inspection, nondistended, normoactive bowel sounds, soft to palpation, non-tender and non-distended GI Narrative: PEG tube in situ Extremity normal to inspection and full ROM Skin Skin Narrative: radiation changes on neck Neuro oriented x3 and moves all extremities Sensorium / Orientation: awake Psych affect normal Appearance: appropriate Assessment & Plan Assessment/Plan (1) Adult failure to thrive: (2) Acute dehydration: PLAN: Plan #Hypotension and failure to thrive likely due to decreased intake and malnutrition * Patient has a history of tongue cancer and had surgery for this as well as having chemotherapy and radiation. Chemotherapy was stopped about 3 weeks ago because he could not tolerated and he had a session of radiation the day before admission but his oncologist apparently planning to hold off on this for a while to due to patient's performance status. * He came into the ED because of weakness and lethargy and was found to be hypotensive in his oncologist office * Patient had been started on tube feeds about 2 weeks ago but has not been getting the amount he is supposed to because he could not tolerate the tube feeds. He is post to get 1.25 L of tube feed daily but has gotten this only twice over the last 2 weeks and since last he has barely gotten any acidosis. He has also had diarrhea and nausea and vomiting with this. He is not able to take in orally at all due to worsening odynophagia and dysphagia from the cancer and radiation. * hypotension has now resolved. * Hypotension is likely due to dehydration and decreased intake and malnutrition. * Labs are essentially unremarkable. Hypotension resolved with hydration in the ED. Will continue hydration with D5 normal saline at 125 cc/h. * Nutrition on board to give dietary recommendations. Will keep n.p.o. due to severe dysphagia and odynophagia waking it impossible for him to swallow. * Consult PT/OT. Fall precautions. * #History of tongue cancer: * As stated follows with oncology. * Was diagnosed earlier this year and has had surgery namely resection of the tongue. * Was on chemotherapy for this. 3 weeks ago and was on radiation and chemo for which she had a session yesterday. * According to [id number] his oncologist is planning to hold off on further radiation sessions for now due to patient's weakness and poor performance status. * # Debility and weakness due to failure to thrive: As above. PT OT consulted. Fall precautions. DVT prophylaxis: Lovenox CODE STATUS: Full code * Charges/Coding Visit Charges Inpatient E&M: 09803 Subs Hosp L2
[2025-08-23 11:33] VITALS: BP 153/87; PULSE 77; RESP 16; TEMP 36.6; O2SAT 100
--- NOTE | 2025-08-23 11:50 | CASEMGMT ---
ELI CM Face to Face with patient for initial transition planning/care coordination assessment. RN CM introduced self and role at [facility]. Patient lying in bed, alert and oriented, sister in law at bedside. Patient willing to participate in assessment and is able to answer all questions appropriately. Care providers, pharmacy, and demographics verified. Strata: 3 PCP: Shahid Specialists: Mauricio, oncologist; Mariana, Radiologist; MYESHA Fu Preferred Pharmacy: [facility] Insurance: [employer] M[employer] Prescription Benefit: yes Living Will/HPOA: yes, daughter Serene Palacio LNOK: daughter, sister in law, brother Living Arrangements: Patient lives alone in a mobile home with 3 steps and railing. Patient is independent at home. Patient will be discharging to his sister in laws house at discharge. Transportation: self, family DME/HHC: Patient has suction machine, tube feeds, feeding pump and pole at home. Patient was recently discharged from [facility] and they were working on setting up services with another agency in [place]. Patient wishes to discharge is MOLLY's house with [facility]. Patient and MOLLY prefer [facility]. Patient states he has no further needs or concerns at this time. RN CM called and taurus referral to [facility] and they stated they already received referral from [facility] and are able to accept patient with tentative SOC for Thursday. RN CM updated patient and MOLLY. RN CM called [facility] and requested to fully DC patient from services. RN CM updated the DC and green sheet placed on chart. CM to follow for discharge planning needs that may arise. Disposition Plan: Patient to discharge home with [facility], family support, and follow-up plans in place. Diana RAMIREZ, RN, CM
[2025-08-23] MEDS: Pivot 1.5 Cal 1,000 ML 20 ML JT (12:50)
[2025-08-23 15:06] VITALS: BP 136/96; PULSE 87; RESP 16; TEMP 36.4; O2SAT 100
[2025-08-23 21:00] VITALS: BP 154/83; PULSE 77; RESP 16; TEMP 36.2; O2SAT 100
[2025-08-24] MEDS: Dextrose 5%/0.9% NaCl 1,000 ML 125 ML IV ×2 (00:37→09:08)
--- NOTE | 2025-08-24 01:10 | NURSING ---
Increased TF to 50ml. pt tolerating well. Will continue to monitor.
[2025-08-24 04:00] VITALS: BP 156/82; PULSE 81; RESP 18; TEMP 36.7; O2SAT 98
--- NOTE | 2025-08-24 06:15 | NURSING ---
Increased feeds to 55 ml, pt tolerating well. Will continue to monitor.
[2025-08-24 06:16] LABS: Hematocrit 37.1 % (40-54); Hemoglobin 12.3 g/dL (13.0-16.5); Immature Granulocytes Count 0.070 X10^3/uL (0.0-0.0); Mean Corp Hgb Conc 33.2 g/dL (32-36); Mean Corpuscular Volume 88.8 fL (80-94); Mean Platelet Vol. 8.6 fl (6.2-12.0); NRBC Flagged by Analyzer 0 % (0-5); Platelet Count 259 K/mm3 (150-450); RBC Distribution Width CV 14.7 % (11.6-14.6); RBC Distribution Width SD 46.4 fl (35.1-43.9); Red Blood Count 4.18 M/mm3 (4.6-6.2); White Blood Count 6.4 K/mm3 (4.4-11.0)
[2025-08-24] MEDS: Pivot 1.5 Cal 1,000 ML 55 ML JT ×2 (06:37→17:25)
[2025-08-24 06:54] LABS: Anion Gap 8 (5-15); BUN 8 mg/dL (4-19); BUN/Creat Ratio 10.9 RATIO (10-20); Calcium,Total 8.8 mg/dL (7.6-11.0); Carbon Dioxide 24.2 mmol/L (21.0-32.0); Chloride 104 mmol/L (98-108); Estimated Creatinine Clearance 78.47 ml/min (50-250); Glucose 105 mg/dL (70-99); Potassium 3.8 mmol/L (3.3-5.1)
[2025-08-24 07:58] VITALS: BP 157/88; PULSE 83; RESP 16; TEMP 36.8; O2SAT 99
[2025-08-24 11:24] VITALS: BP 139/85; PULSE 79; RESP 16; TEMP 36.9; O2SAT 97
[2025-08-24 15:08] VITALS: BP 138/84; PULSE 81; RESP 16; TEMP 36.6; O2SAT 98
--- NOTE | 2025-08-24 16:33 | PCM.PN.HOSP ---
Reason for Visit Chief Complaint: hypotension Subjective Subjective Pt feeling a little bit better, tolerating tube feeds at goal right now, slight abd discomfort but not overtly so, no nausea Objective Data Objective Data Vital Signs: Vital Signs Temp Pulse Resp BP Pulse Ox O2 Del Method 97.9 F 81 16 138/84 H 98 Room Air 08/24/25 15:08 08/24/25 15:08 08/24/25 15:08 08/24/25 15:08 08/24/25 15:08 08/24/25 15:08 Oxygen Delivery Method Room Air Weight: 83.098 kg Body Mass Index (BMI) 28.7 Intake & Output: Intake and Output for Last 24 Hours 08/22/25 08/23/25 08/24/25 23:59 23:59 23:59 Intake Total 1202.08 / 1302.08 2663.33 / 2663.33 2576.58 / 2576.58 Balance 1202.08 / 1302.08 2663.33 / 2663.33 2576.58 / 2576.58 Medical Nutrition Assessment Dietitian: Malnutrition Criteria Met Start: 08/23/25 11:31 Freq: Status: Active Protocol: Document 08/23/25 13:46 LO (Rec: 08/23/25 13:46 LO [id number]) Nutrition Malnutrition Evidence of Yes Malnutrition Exists Evidenced By Suboptimal Energy Intake (Severe),Weight Loss (Severe) Intake Problem Inadequate Oral Intake Etiology related to dysphagia Signs/Symptoms as evidenced by NPO diet ordered and pt reliant on enteral nutrition to meet 100% of estimated nutrition needs via G-J tube Status Active Problem Recommendation Dietitian Recommend via G-J tube: Pivot 1.5 at 55mL/hr x 24 hours Recommendations/ goal rate with 170mL water flush 6x daily to provide Changes 1980kcal, 123.8 grams protein, and 2010mL free water daily. Initiate at 20mL/hr and advance by 15mL every 6-8 hours as tolerated to goal rate. Continue NPO d/t dysphagia and hx of tongue cancer. Lab / Micro Data 08/24/25 05:40 08/24/25 05:40 Labs: Laboratory Results - last 24 hr 08/24/25 05:40: WBC 6.4, RBC 4.18 L, Hgb 12.3 L, Hct 37.1 L, MCV 88.8, MCH 29.4, MCHC 33.2, RDW Std Deviation 46.4 H, RDW Coeff of Mayra 14.7 H, Plt Count 259, MPV 8.6, Immature Gran % (Auto) 1.100 H, Neut % (Auto) 73.1 H, Lymph % (Auto) 11.6 L, Stanton % (Auto) 10.3 H, Eos % (Auto) 3.1, Baso % (Auto) 0.8, Absolute Neuts (auto) 4.7, Absolute Lymphs (auto) 0.74 L, Nucleated RBC % 0, Sodium 136, Potassium 3.8, Chloride 104, Carbon Dioxide 24.2, Anion Gap 8, BUN 8, Creatinine 0.73, Estim Creat Clear Calc 78.47, Est GFR (MDRD) Non-Af 93, BUN/Creatinine Ratio 10.9, Glucose 105 H, Calcium 8.8 Rhythm Strip Rhythm Strip: Sinus Rhythm Rate: 74 Ectopy: None Physical Exam Narrative General: Alert HEENT: Left sided facial droop Eyes: Anicteric, normal conjunctiva, extraocular movements grossly intact Neck: Supple Respiratory: Clear to auscultation bilaterally, normal respiratory effort Cardiovascular: Regular rate and rhythm GI: Min tenderness moreso on left side, no rebound,guarding, rigidity Extremities: No edema Musculoskeletal: Moving all extremities Neuro: loeft facial droop Skin: No rashes appreciated Psych: Cooperative Assessment & Plan Assessment/Plan (1) Adult failure to thrive: (2) Acute dehydration: PLAN: Plan 80-year-old male history of tongue cancer he was undergoing chemo and radiation but was stopped 3 weeks ago due to functional status presented [facility] ED 08/22/2025 for low blood pressure. Reportedly was sent in from his oncologist office due to intermittent nausea, vomiting, diarrhea and low blood pressure and was not tolerating tube feeds. In the ED temp 99.2, heart rate initially 102, respiratory rate 22, blood pressure 97/67, pulse ox 100% on room air. White count 6.2, BUN of 20 and a creatinine 1.08, lactic normal. Did appear dehydrated and hospitalist contacted for admission. #Dehydration - Patient presented with nausea, vomiting, and diarrhea prior to coming in and also had not been tolerating tube feeds -Patient received IV fluids with improvement of blood pressure -Also started on tube feeds and dietitian c/slted, is up to goal and is tolerating these, is not nauseous currently, denies any further diarrhea -Did indicate a little bit of discomfort on left side of abdomen with deeper palpation but no rebound, guarding, rigidity and patient appeared comfortable -Will discuss with dietitian tomorrow regarding dispo, seems as though plan is for patient to go back on nocturnal feeds but family is hesitant as he had not been tolerating these prior to coming in #N/V/Diarrhea - Resolved - Chest x-ray on presentation noted a few air-fluid levels in upper abdomen of questionable significance -Reviewed film and these are small and nonspecific - Nausea and vomiting have resolved, he is now tolerating tube feeds and is no longer having diarrhea - No signs or symptoms of an obstruction at this time and abdominal exam without any rebound, guarding, rigidity - Afebrile, vitally stable -Labs stable - Continue tube feeds and supportive care - If any further concerns were to arise or any change in symptoms or further nausea or vomiting will repeat imaging #Tounge cancer -Follows w/ outpt oncology -Chemo and radiation on hold x3 weeks given functional status #DVT ppx: Lovenox subcu Corrie Villalobos MD Charges/Coding Visit Charges Inpatient E&M: 95687 Subs Hosp L2
[2025-08-24 20:24] VITALS: BP 150/93; PULSE 66; RESP 16; TEMP 36.8; O2SAT 98
[2025-08-25 03:26] VITALS: BP 147/74; PULSE 80; RESP 20; TEMP 36.9; O2SAT 100
[2025-08-25 05:42] LABS: Hematocrit 32.4 % (40-54); Hemoglobin 11.4 g/dL (13.0-16.5); Mean Corp Hgb Conc 35.2 g/dL (32-36); Mean Corpuscular Volume 85.9 fL (80-94); Mean Platelet Vol. 8.9 fl (6.2-12.0); Platelet Count 246 K/mm3 (150-450); RBC Distribution Width CV 14.8 % (11.6-14.6); RBC Distribution Width SD 45.9 fl (35.1-43.9); Red Blood Count 3.77 M/mm3 (4.6-6.2); White Blood Count 5.7 K/mm3 (4.4-11.0)
[2025-08-25 06:15] LABS: Anion Gap 11 (5-15); BUN 10 mg/dL (4-19); BUN/Creat Ratio 13.7 RATIO (10-20); Calcium,Total 8.4 mg/dL (7.6-11.0); Carbon Dioxide 23.7 mmol/L (21.0-32.0); Chloride 100 mmol/L (98-108); Estimated Creatinine Clearance 78.47 ml/min (50-250); Glucose 104 mg/dL (70-99); Potassium 3.3 mmol/L (3.3-5.1)
[2025-08-25 06:38] LABS: Scan Indicated on CBC? Y/N NO
[2025-08-25 08:51] VITALS: BP 129/69; PULSE 71; RESP 16; TEMP 36.6; O2SAT 99
--- NOTE | 2025-08-25 09:33 | CASEMGMT ---
Per hospitalist in rounds, family concerned pt will not tolerate night TF. Per hospitalist, pt is tolerating TF now. Pt will have [facility] and will be going to sister in law's home. TC to Brea at [facility] to make aware of the concern. They can monitor pt and work with embroiderer at Infusion company and physician to make any necessary changes if pt cannot tolerate. She states they will be out to see pt on Thursday. Updated hospitalist with this information.
[2025-08-25] MEDS: Pivot 1.5 Cal 1,000 ML 55 ML JT (11:44)
--- NOTE | 2025-08-25 14:31 | DCINST_ITS ---
Discharge Instructions DC O2, CPAP, BIPAP needs Home O2 Discharge instructions: No Dressing / Incision Discharge Activity: - (Increase activity as tolerate) Follow Up Care Test Results: Test results from this visit will be discussed in further detail at your follow- up appointment, if applicable. Discharge Plan Admission Admit Date/Time: 08/23/25 12:31 Primary Reason for Your Visit: Low blood pressure, dehydration Attending Provider: Corrie Villalobos Primary Care Provider: Daniele Key Consulting Providers: Dottie Suggs Instructions Patient Instructions: ED Fall Prevention Discharge Orders/Prescriptions Prescriptions: No Action NK Referrals / Follow Up: Daniele Key DO [Primary Care Provider, Medical] - Within 1 Week Disposition Disposition (needs filled in before D/C Order can be placed): Home Health Service
--- NOTE | 2025-08-25 14:41 | DS.PCM_ITS ---
Providers Date of Admission: 08/23/25 Primary Care Physician: Dr. Daniele Key DO Reason For Visit: FAILURE TO THRIVE, DEHYDRATION Diagnosis Discharge Diagnosis (1) Adult failure to thrive: Status: Acute Code(s): R62.7 - Adult failure to thrive (2) Acute dehydration: Status: Acute Code(s): E86.0 - Dehydration Plan 80-year-old male history of tongue cancer he was undergoing chemo and radiation but was stopped 3 weeks ago due to functional status presented [facility] ED 08/22/2025 for low blood pressure. Reportedly was sent in from his oncologist office due to intermittent nausea, vomiting, diarrhea and low blood pressure and was not tolerating tube feeds. In the ED temp 99.2, heart rate initially 102, respiratory rate 22, blood pressure 97/67, pulse ox 100% on room air. White count 6.2, BUN of 20 and a creatinine 1.08, lactic normal. Did appear dehydrated and hospitalist contacted for admission. #Dehydration - Patient presented with nausea, vomiting, and diarrhea prior to coming in and also had not been tolerating tube feeds -Patient received IV fluids with improvement of blood pressure -Also started on tube feeds and dietitian c/slted, is up to goal and is tolerating these, is not nauseous currently, denies any further diarrhea -Did indicate a little bit of discomfort on left side of abdomen with deeper palpation but no rebound, guarding, rigidity and patient appeared comfortable -Will discuss with dietitian tomorrow regarding dispo, seems as though plan is for patient to go back on nocturnal feeds but family is hesitant as he had not been tolerating these prior to coming in #N/V/Diarrhea - Resolved - Chest x-ray on presentation noted a few air-fluid levels in upper abdomen of questionable significance -Reviewed film and these are small and nonspecific - Nausea and vomiting have resolved, he is now tolerating tube feeds and is no longer having diarrhea - No signs or symptoms of an obstruction at this time and abdominal exam without any rebound, guarding, rigidity - Afebrile, vitally stable -Labs stable - Continue tube feeds and supportive care - If any further concerns were to arise or any change in symptoms or further nausea or vomiting will repeat imaging #Tounge cancer -Follows w/ outpt oncology -Chemo and radiation on hold x3 weeks given functional status #DVT ppx: Lovenox subcu Corrie Villalobos MD Medications at Discharge Home Medications NK 08/21/25 Medical Records Data Medical Nutrition Assessment Dietitian: Malnutrition Criteria Met Start: 08/23/25 11:31 Freq: Status: Active Protocol: Document 08/23/25 13:46 LO (Rec: 08/23/25 13:46 LO [id number]) Nutrition Malnutrition Evidence of Yes Malnutrition Exists Evidenced By Suboptimal Energy Intake (Severe),Weight Loss (Severe) Intake Problem Inadequate Oral Intake Etiology related to dysphagia Signs/Symptoms as evidenced by NPO diet ordered and pt reliant on enteral nutrition to meet 100% of estimated nutrition needs via G-J tube Status Active Problem Recommendation Dietitian Recommend via G-J tube: Pivot 1.5 at 55mL/hr x 24 hours Recommendations/ goal rate with 170mL water flush 6x daily to provide Changes 1980kcal, 123.8 grams protein, and 2010mL free water daily. Initiate at 20mL/hr and advance by 15mL every 6-8 hours as tolerated to goal rate. Continue NPO d/t dysphagia and hx of tongue cancer. Weight / BMI Weight Weight: 83.098 kg Body Mass Index (BMI) 28.7 ABG / Lab / Microbiology Data 08/25/25 04:25 08/25/25 04:25 Laboratory: Laboratory Results - last 24 hr 08/25/25 04:25: WBC 5.7, RBC 3.77 L, Hgb 11.4 L, Hct 32.4 L, MCV 85.9, MCH 30.2, MCHC 35.2 D, RDW Std Deviation 45.9 H, RDW Coeff of Mayra 14.8 H, Plt Count 246, MPV 8.9, Sodium 135, Potassium 3.3, Chloride 100, Carbon Dioxide 23.7, Anion Gap 11, BUN 10, Creatinine 0.73, Estim Creat Clear Calc 78.47, Est GFR (MDRD) Non-Af 93, BUN/Creatinine Ratio 13.7, Glucose 104 H, Calcium 8.4 D/C Instructions DC O2, CPAP, BIPAP Needs Home O2 Discharge instructions: No Discharge Plan Admission Admit Date/Time: 08/23/25 12:31 Primary Reason for Your Visit: Low blood pressure, dehydration Attending Provider: Corrie Villalobos Primary Care Provider: Daniele Key Consulting Providers: Dottie Suggs Instructions Patient Instructions: ED Fall Prevention Discharge Orders/Prescriptions Prescriptions: No Action NK Referrals / Follow Up: Daniele Key DO [Primary Care Provider, Medical] - Within 1 Week Disposition Disposition (needs filled in before D/C Order can be placed): Home Health Service
[2025-08-25 14:51] VITALS: BP 147/81; PULSE 70; RESP 16; TEMP 36.4; O2SAT 99
--- NOTE | 2025-08-25 15:07 | CASEMGMT ---
Addendum entered by Sigrid Pelaez 08/25/25 16:31: Attempted to reach federal appellate law clerk x2. Discussed with hospitalist plan for home TF if to continue at HS or 24 hours. Will need to speak with federal appellate law clerk for recommendations and upload rx to [facility]. Message sent to [facility] that pt will not dc today. ELI MONTANO into pt room, pt aware if this needs to be sorted out prior to being able to dc. Pt family present and is aware as well. TC to Brea at [facility] to make aware that pt will not dc today. Addendum entered by Sigrid Pelaez 08/25/25 16:13: Spoke with pt susi who states pt was having diarrhea and vomiting with TF at home. She prefers pt be dc'd on what he is having here at the hospital. TC to federal appellate law clerk, no answer. Message sent to [facility] who states they are active with pt but will need new rx prior to resuming care. Documents sent to [facility] at this time. Original Note: ELI MONTANO into pt room, pt with dc order placed. Pt states he was in the process of switching TF at home as he could not tolerate his feedings. He states he has been fine tolerating his feedings here. Pt does not know which company is providing the feedings. Pt states his sister in law has been working on this and it is ok if this ELI MONTANO calls her. Pt states he feels safe to dc home and he is indep with TF. He is aware that [facility] will be out to see him on Thursday.
--- NOTE | 2025-08-25 17:10 | PN.HOSP_ITS ---
Reason for Visit Chief Complaint: hypotension Subjective Subjective Patient denies any abdominal pain today, no nausea, no new or acute complaints Objective Data Objective Data Vital Signs: Vital Signs Temp Pulse Resp BP Pulse Ox O2 Del Method 98 F 71 16 129/69 H 99 Room Air 08/25/25 08:51 08/25/25 08:51 08/25/25 08:51 08/25/25 08:51 08/25/25 08:51 08/25/25 08:52 Oxygen Delivery Method Room Air Weight: 83.098 kg Body Mass Index (BMI) 28.7 Intake & Output: Intake and Output for Last 24 Hours 08/23/25 08/24/25 08/25/25 23:59 23:59 23:59 Intake Total 2663.33 / 2663.33 4420.58 / 4420.58 1150 / 1150 Balance 2663.33 / 2663.33 4420.58 / 4420.58 1150 / 1150 Medical Nutrition Assessment Dietitian: Malnutrition Criteria Met Start: 08/23/25 11:31 Freq: Status: Active Protocol: Document 08/23/25 13:46 LO (Rec: 08/23/25 13:46 LO [id number]) Nutrition Malnutrition Evidence of Yes Malnutrition Exists Evidenced By Suboptimal Energy Intake (Severe),Weight Loss (Severe) Intake Problem Inadequate Oral Intake Etiology related to dysphagia Signs/Symptoms as evidenced by NPO diet ordered and pt reliant on enteral nutrition to meet 100% of estimated nutrition needs via G-J tube Status Active Problem Recommendation Dietitian Recommend via G-J tube: Pivot 1.5 at 55mL/hr x 24 hours Recommendations/ goal rate with 170mL water flush 6x daily to provide Changes 1980kcal, 123.8 grams protein, and 2010mL free water daily. Initiate at 20mL/hr and advance by 15mL every 6-8 hours as tolerated to goal rate. Continue NPO d/t dysphagia and hx of tongue cancer. Lab / Micro Data 08/25/25 04:25 08/25/25 04:25 Labs: Laboratory Results - last 24 hr 08/25/25 04:25: WBC 5.7, RBC 3.77 L, Hgb 11.4 L, Hct 32.4 L, MCV 85.9, MCH 30.2, MCHC 35.2 D, RDW Std Deviation 45.9 H, RDW Coeff of Mayra 14.8 H, Plt Count 246, MPV 8.9, Sodium 135, Potassium 3.3, Chloride 100, Carbon Dioxide 23.7, Anion Gap 11, BUN 10, Creatinine 0.73, Estim Creat Clear Calc 78.47, Est GFR (MDRD) Non-Af 93, BUN/Creatinine Ratio 13.7, Glucose 104 H, Calcium 8.4 Rhythm Strip Rhythm Strip: Sinus Rhythm Rate: 74 Ectopy: None Physical Exam Narrative General: Alert HEENT: Does have facial droop noted similar to yesterday Eyes: Anicteric, normal conjunctiva, extraocular movements grossly intact Neck: Supple Respiratory: Clear to auscultation bilaterally, normal respiratory effort Cardiovascular: Regular rate and rhythm GI: Nontender, no rebound,guarding, rigidity Extremities: No edema Musculoskeletal: Moving all extremities Neuro: Does have facial droop noted Skin: No rashes appreciated Psych: Cooperative Assessment & Plan Assessment/Plan (1) Adult failure to thrive: (2) Acute dehydration: PLAN: Plan 80-year-old male history of tongue cancer he was undergoing chemo and radiation but was stopped 3 weeks ago due to functional status presented [facility] ED 08/22/2025 for low blood pressure. Reportedly was sent in from his oncologist office due to intermittent nausea, vomiting, diarrhea and low blood pressure and was not tolerating tube feeds. In the ED temp 99.2, heart rate initially 102, respiratory rate 22, blood pressure 97/67, pulse ox 100% on room air. White count 6.2, BUN of 20 and a creatinine 1.08, lactic normal. Did appear dehydrated and hospitalist contacted for admission. #Dehydration - Patient presented with nausea, vomiting, and diarrhea prior to coming in and also had not been tolerating tube feeds -Patient received IV fluids with improvement of blood pressure -Also started on tube feeds and dietitian c/slted, is up to goal and is tolerating these, is not nauseous currently, denies any further diarrhea -Did indicate a little bit of discomfort on left side of abdomen with deeper palpation but no rebound, guarding, rigidity and patient appeared comfortable -Will discuss with dietitian tomorrow regarding dispo, seems as though plan is for patient to go back on nocturnal feeds but family is hesitant as he had not been tolerating these prior to coming in -08/25: Patient still tolerating tube feeds here, there is concern that patient was not tolerating his previous tube feeds and that he will go home and have further problems. Discussed with case management, dietitian will be contacted tomorrow to obtain further recommendations regarding continuous feeds or qhs and formula. Pt will remain here tonight on continuous feeds, further dispo pending recommendations #N/V/Diarrhea - Resolved - Chest x-ray on presentation noted a few air-fluid levels in upper abdomen of questionable significance -Reviewed film and these are small and nonspecific - Nausea and vomiting have resolved, he is now tolerating tube feeds and is no longer having diarrhea - No signs or symptoms of an obstruction at this time and abdominal exam without any rebound, guarding, rigidity - Afebrile, vitally stable -Labs stable - Continue tube feeds and supportive care - If any further concerns were to arise or any change in symptoms or further nausea or vomiting will repeat imaging -08/25: Continue current management, tolerating feeds now #Tounge cancer -Follows w/ outpt oncology -Chemo and radiation on hold x3 weeks given functional status -08/25: Continuing tube feeds, management as above #DVT ppx: Lovenox subcu Corrie Villalobos MD Time spent in the patient's overall evaluation,decision-making process, review of diagnostic data, adjustment of management, discussion with other providers, nursing nursing and ancillary staff involved in patient's care documentation, 40 Minutes Charges/Coding Visit Charges Inpatient E&M: 87090 Subs Hosp L2
[2025-08-25 22:51] VITALS: BP 137/87; PULSE 88; RESP 16; TEMP 36.6; O2SAT 99
[2025-08-26 04:49] VITALS: BP 141/93; PULSE 89; RESP 16; TEMP 36.6; O2SAT 96
[2025-08-26 05:28] LABS: Hematocrit 35.0 % (40-54); Hemoglobin 11.7 g/dL (13.0-16.5); Mean Corp Hgb Conc 33.4 g/dL (32-36); Mean Corpuscular Volume 88.4 fL (80-94); Mean Platelet Vol. 9.1 fl (6.2-12.0); Platelet Count 258 K/mm3 (150-450); RBC Distribution Width CV 15.0 % (11.6-14.6); RBC Distribution Width SD 47.1 fl (35.1-43.9); Red Blood Count 3.96 M/mm3 (4.6-6.2); White Blood Count 5.6 K/mm3 (4.4-11.0)
[2025-08-26] MEDS: Pivot 1.5 Cal 1,000 ML 55 ML JT (05:48)
[2025-08-26 05:55] LABS: Anion Gap 8 (5-15); BUN 18 mg/dL (4-19); BUN/Creat Ratio 22.5 RATIO (10-20); Calcium,Total 9.1 mg/dL (7.6-11.0); Carbon Dioxide 29.8 mmol/L (21.0-32.0); Chloride 100 mmol/L (98-108); Estimated Creatinine Clearance 78.47 ml/min (50-250); Glucose 118 mg/dL (70-99); Potassium 3.4 mmol/L (3.3-5.1)
[2025-08-26 10:00] VITALS: BP 126/81; PULSE 78; RESP 18; TEMP 36.7; O2SAT 98
--- NOTE | 2025-08-26 11:30 | CASEMGMT ---
ELI MONTANO updated by inpatient breakfast host that patient will require new script for Pivot 1.5 at discharge. RN CHARMAINE called and spoke to [facility] to coordinate setup. Per Ana at [facility], they do not carry Pivot and provided number for breakfast host to call to discuss equivalent to Pivot 1.5. RN CHARMAINE updated inpatient breakfast host to contact [facility]. ELI MONTANO received call back from inpatient breakfast host and the equivalent to Pivot 1.5 is Impact Peptide 1.5. Per inpatient breakfast host [facility] will need to order Impact Peptide and would be available to patient on Thursday08/29/25. Inpatient breakfast host spoke with [facility] inpatient pharmacy and requested 4 bottles of Pivot 1.5 for patient to go home with till supply is received from [facility] on Thursday. Patient is anticipated to discharge today. ELI MONTANO received 4 bottles for Pivot 1.5 and script for Impact Peptide signed by hospitalist. ELI MONTANO sent updated script to [facility] via [employer] and left message with Ana at [facility]. ELI MONTANO in to discuss discharge needs with patient, daughter at bedside. Daughter called sister in law Lou and RN CM updated patient, Dasha, and daughter regarding updated tubefeed order and anticipated delivery for Thursday, tube feed supply for at discharge, and to call [facility] breakfast host on Thursday for follow-up soon. Daughter and Dasha had no further questions or concerns. ELI MONTANO updated discharge plan in discharge packet.
--- NOTE | 2025-08-26 12:17 | DCINST_ITS ---
Discharge Instructions DC O2, CPAP, BIPAP needs Home O2 Discharge instructions: No Follow Up Care Test Results: Test results from this visit will be discussed in further detail at your follow- up appointment, if applicable. Discharge Plan Admission Admit Date/Time: 08/23/25 12:31 Primary Reason for Your Visit: Low blood pressure, dehydration Attending Provider: Corrie Villalobos Primary Care Provider: Daniele Key Consulting Providers: Dottie Suggs Instructions Patient Instructions: ED Fall Prevention Discharge Orders/Prescriptions Prescriptions: New IV with Additives Pivot 1.5 Akshat 1000 ML 55 mls/hr JT D/c with tube feeds Ordered By: Corrie Villalobos MD Last Taken: 08/26/25 05:48 55 mls/hr Referrals / Follow Up: Daniele Key DO [Primary Care Provider, Medical] - Within 1 Week Disposition Disposition (needs filled in before D/C Order can be placed): Home Health Service
--- NOTE | 2025-08-26 12:49 | PCM.DC.SUM ---
Providers Date of Admission: 08/23/25 Date of Discharge: 08/26/25 Primary Care Physician: Dr. 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 Reportedly was sent in from his oncologist office due to intermittent nausea, vomiting, diarrhea and low blood pressure and was not tolerating tube feeds. In the ED temp 99.2, heart rate initially 102, respiratory rate 22, blood pressure 97/67, pulse ox 100% on room air. White count 6.2, BUN of 20 and a creatinine 1.08, lactic normal. Did appear dehydrated and hospitalist contacted for admission. Patient's symptoms resolved with switching tube feeds. He was placed on continuous and uptitrated to goal. Patient with no abdominal pain, no vomiting, no further diarrhea. Given he tolerated these so much better plan was for discharge with current tube feeds and discontinuing previous tube feeds. This was coordinated by case management and patient discharged home with family with present tube feeds that he was definitively tolerating. Physical Exam Narrative General: Alert HEENT: Does have facial droop noted similar to yesterday Eyes: Anicteric, normal conjunctiva, extraocular movements grossly intact Neck: Supple Respiratory: Clear to auscultation bilaterally, normal respiratory effort Cardiovascular: Regular rate and rhythm GI: Nontender, no rebound,guarding, rigidity Extremities: No edema Musculoskeletal: Moving all extremities Neuro: Does have facial droop noted Skin: No rashes appreciated Psych: Cooperative Medical Records Data Medical Nutrition Assessment Dietitian: Malnutrition Criteria Met Start: 08/23/25 11:31 Freq: Status: Active Protocol: Document 08/23/25 13:46 LO (Rec: 08/23/25 13:46 LO [id number]) Nutrition Malnutrition Evidence of Yes Malnutrition Exists Evidenced By Suboptimal Energy Intake (Severe),Weight Loss (Severe) Intake Problem Inadequate Oral Intake Etiology related to dysphagia Signs/Symptoms as evidenced by NPO diet ordered and pt reliant on enteral nutrition to meet 100% of estimated nutrition needs via G-J tube Status Active Problem Recommendation Dietitian Recommend via G-J tube: Pivot 1.5 at 55mL/hr x 24 hours Recommendations/ goal rate with 170mL water flush 6x daily to provide Changes 1980kcal, 123.8 grams protein, and 2010mL free water daily. Initiate at 20mL/hr and advance by 15mL every 6-8 hours as tolerated to goal rate. Continue NPO d/t dysphagia and hx of tongue cancer. Weight / BMI Weight Weight: 83.098 kg Body Mass Index (BMI) 28.7 ABG / Lab / Microbiology Data 08/26/25 04:08 08/26/25 04:08 Laboratory: Laboratory Results - last 24 hr 08/26/25 04:08: WBC 5.6, RBC 3.96 L, Hgb 11.7 L, Hct 35.0 L, MCV 88.4, MCH 29.5, MCHC 33.4 D, RDW Std Deviation 47.1 H, RDW Coeff of Mayra 15.0 H, Plt Count 258, MPV 9.1, Sodium 139, Potassium 3.4, Chloride 100, Carbon Dioxide 29.8, Anion Gap 8, BUN 18, Creatinine 0.79, Estim Creat Clear Calc 78.47, Est GFR (MDRD) Non-Af 91, BUN/Creatinine Ratio 22.5 H, Glucose 118 H, Calcium 9.1 D/C Instructions DC O2, CPAP, BIPAP Needs Home O2 Discharge instructions: No Meaningful Use Info Meaningful Use Meaningful Use Diagnoses (Choose all that apply): None applicable Discharge Plan Admission Admit Date/Time: 08/23/25 12:31 Primary Reason for Your Visit: Low blood pressure, dehydration Attending Provider: Corrie Villalobos Primary Care Provider: Daniele Key Consulting Providers: Dottie Suggs Instructions Patient Instructions: ED Fall Prevention Discharge Orders/Prescriptions Prescriptions: New IV with Additives Pivot 1.5 Akshat 1000 ML 55 mls/hr JT D/c with tube feeds Ordered By: Corrie Villalobos MD Last Taken: 08/26/25 05:48 55 mls/hr Referrals / Follow Up: Daniele Key DO [Primary Care Provider, Medical] - Within 1 Week Disposition Disposition (needs filled in before D/C Order can be placed): Home Health Service Charges/Coding Visit Charges Inpatient E&M: 51223 Disch Hosp >30min
[2025-08-26 13:09] VITALS: BP 130/85; PULSE 88; RESP 18; TEMP 37.1; O2SAT 97
== END 2025-08-26 13:16 | disposition home health service (06) | DRG 641 ==
LOC: ED 12:51 → MS3 13:24
PROVIDERS: Admitting Provider Student in an Organized Health Care Education/Training Program; Emergency Provider Emergency Medicine; Referring Provider Student in an Organized Health Care Education/Training Program; Visit Provider Internal Medicine
DX: E86.0 Dehydration (principal); E46 Unspecified protein-calorie malnutrition; C02.9 Malignant neoplasm of tongue, unspecified; R19.7 Diarrhea, unspecified; R53.81 Other malaise; Z87.891 Personal history of nicotine dependence; Z68.28 Body mass index [BMI] 28.0-28.9, adult
CPT/HCPCS: 36415; 36600; 51702; 70450; 71045; 71046; 80048; 80053; 81001; 82803; 83605; 84484; 85025; 85027; 85610; 85730; 87631; 93005; 96360; 96361; 97161; 97802; 97803; 99284; 99285; A4216